=== PATIENT | female | born 1945 ===

== ENCOUNTER → 2020-04-09 09:47 | Outpatient (BNVA) | payer OTHER, SELFPAY | PROVIDERS: PCP Internal Medicine; Referring Provider Internal Medicine; Visit Provider Internal Medicine Endocrinology, Diabetes & Metabolism | DX: E11.65 Type 2 diabetes mellitus with hyperglycemia (principal); E11.42 Type 2 diabetes mellitus with diabetic polyneuropathy; E11.21 Type 2 diabetes mellitus with diabetic nephropathy; Z79.4 Long term (current) use of insulin; E78.5 Hyperlipidemia, unspecified; I10 Essential (primary) hypertension; E66.9 Obesity, unspecified; Z68.36 Body mass index [BMI] 36.0-36.9, adult; E03.9 Hypothyroidism, unspecified; Z79.899 Other long term (current) drug therapy | CPT/HCPCS: 82947; 99212 ==

== ENCOUNTER 2020-04-09 11:02 | Outpatient (REF) | payer OTHER, SELFPAY ==
[2020-04-09 14:29] LABS: Free T4 (Free Thyroxine) 0.96 ng/dL (0.71-1.85); Thyroid Stimulating Hormone 3.25 uIU/mL (0.32-4.0)
[2020-04-10 10:31] LABS: Thyroglobulin Antibodies <1 IU/mL (< or = 1); Thyroid Peroxidase Antibodies 1 IU/mL (<9)
== END 2020-04-09 11:03 | disposition home or self-care (01) ==
LOC: HO.10HDL 11:02
PROVIDERS: Visit Provider Internal Medicine Endocrinology, Diabetes & Metabolism
DX: E03.9 Hypothyroidism, unspecified (principal)
CPT/HCPCS: 36415; 84439; 84443; 86376; 86800

== ENCOUNTER 2020-05-19 13:16 | Emergency (ER) | payer OTHER, SELFPAY ==
[2020-05-19 18:20] VITALS: BP 173/75; PULSE 61; RESP 20; TEMP 36.9; O2SAT 100; BMI 33.6
[2020-05-19 18:47] LABS: Basophils Percent Auto 0.4 % (0-2); Eosinophils Absolute Auto 0.2 X10*3/uL (0.0-0.4); Hematocrit 33.7 % (37-47); Hemoglobin 11.3 g/dl (12.0-16.0); Imm Gran Abs Auto 0.01 X10*3/uL (0.00-0.03); Imm Gran Pct Auto 0.1 % (0.0-0.4); Lymphocytes Absolute Auto 2.7 X10*3/uL (1.2-4.9); Lymphocytes Percent Auto 36.9 % (20-40); MANUAL DIFF FLAG NO; Mean Corpuscular HGB Conc 33.5 g/dl (31.0-35.0); Mean Corpuscular Hemoglobin 27.9 pg (27.0-33.0); Mean Corpuscular Volume 83.2 fL (80-98); Mean Platelet Volume 10.7 fL (9.4-12.3); Monocytes Absolute Auto 0.6 X10*3/uL (0.1-1.2); Monocytes Percent Auto 8.2 % (2-11); Neutrophils Absolute Auto 3.8 X10*3/uL (2.0-8.3); Neutrophils Percent Auto 52.4 % (45-73); Platelet Count 208 X10*3/uL (160-400); Red Blood Count 4.05 X10*6/uL (4.20-5.50); Red Cell Distribution Width 12.9 % (11.0-16.0); White Blood Count 7.3 X10*3/uL (4.8-10.8)
[2020-05-19 19:13] LABS: Alanine Aminotransferase 26 U/L (0-31); Albumin Level 3.4 g/dL (3.5-5.0); Alkaline Phosphatase 76 U/L (39-117); Anion Gap 14 (12-20); Aspartate Amino Transferase 19 U/L (5-31); Bilirubin Total 0.3 mg/dL (0.0-1.0); Blood Urea Nitrogen 26 mg/dL (9-16); Calcium 8.8 mg/dL (8.4-10.2); Carbon Dioxide 24 mmol/L (22-29); Chloride 105 mmol/L (96-108); Creatinine Clr Calc Pharmacy 34.4; Estimated Glomerular Filt Rate 34; Glucose Random 388 mg/dL (60-115); Potassium 4.7 mmol/l (3.3-5.1); Sodium 138 mmol/L (135-145); Total Protein 6.2 g/dL (6.5-8.0)
[2020-05-19 19:22] LABS: Glucose Urine UA >=1000 MG/DL (NEG); Leukocyte Esterase Urine NEG (NEG); Nitrite Urine NEG (NEG); Specific Gravity - Urine <= 1.005 (1.005-1.025); Urine Blood NEG (NEG); Urine Ketones NEG (NEG); Urine Protein NEG (NEG-TRACE)
[2020-05-19 19:24] LABS: Appearance Urine CLEAR; Color Urine STRAW
[2020-05-19 19:32] LABS: Bacteria Urine 1+ /LPF; RBC Urine 0 /HPF (0); Squamous Epithelial Cell Urine 1+ /LPF; WBC Urine 0 /HPF (0-4)
--- NOTE | 2020-05-19 19:46 | PC.NURSE ---
please call for ride [place] [phone]
--- NOTE | 2020-05-19 19:51 | ED.RECABL ---
HPI - Recheck/Abnormal Lab/Rx General Chief Complaint: Recheck/Abnormal Lab/Rx Stated Complaint: high sugar,told to return here Time Seen by Provider: 05/19/20 19:15 Source: patient Mode of arrival: ambulatory Limitations: no limitations History of Present Illness HPI narrative: Patient presents to ED for hyperglycemia. Patient states for the past 2 days her glucose has been over 400. Patient denies any dizziness, chest pain, shortness of breath, dysuria, hematuria, fever, chills, coughing, or weakness. Patient states she takes metformin, Humalog, and other insulin. Patient states she was on insulin pump last year but they removed it and she would like to get back on the insulin pump. Patient states slight headache but no blurry vision, dizziness, slurred speech, or weakness of extremities. Related Data Home Medications Medication Instructions Recorded Confirmed acetaminophen 500 mg tablet mg PO PRN 04/09/20 05/01/20 ascorbic acid (vitamin C) 500 mg 500 mg PO DAILY 04/09/20 05/01/20 tablet blood sugar diagnostic #10 ea 04/09/20 05/01/20 citalopram 20 mg tablet 20 mg PO DAILY 04/09/20 05/01/20 ferrous sulfate 325 mg (65 mg 325 mg PO DAILY 04/09/20 05/01/20 iron) tablet lancets 33 gauge #100 ea 04/09/20 05/01/20 metformin 750 mg tablet,extended 750 mg PO BID 04/09/20 05/01/20 release 24 hr metoprolol succinate 50 mg 50 mg PO DAILY 04/09/20 05/01/20 tablet,extended release 24 hr omeprazole 40 mg capsule,delayed 40 mg PO DAILY 04/09/20 05/01/20 release pen needle, diabetic 32 gauge x #50 ea 04/09/20 05/01/20 quetiapine 50 mg tablet 50 mg PO QAM 04/09/20 05/01/20 risperidone 1 mg tablet 1 mg PO QAM 04/09/20 05/01/20 valsartan 320 mg tablet 320 mg PO DAILY 04/09/20 05/01/20 insulin lispro 100 unit/mL 26 unit SUBCUT BID ml 05/01/20 05/01/20 subcutaneous pen Previous Rx's Medication Instructions Recorded sennosides 8.6 mg tablet 17.2 mg PO BID PRN 30 Days #120 tab 10/13/20 tamoxifen 20 mg tablet 20 mg PO DAILY #30 tab 03/04/20 cholecalciferol (vitamin D3) 25 25 mcg PO DAILY 30 Days #30 cap 03/19/20 mcg (1,000 unit) capsule linagliptin 5 mg tablet 5 mg PO DAILY 90 Days #90 tab 03/19/20 dicyclomine 20 mg tablet 20 mg PO QID #120 tab 04/06/20 amlodipine 10 mg tablet 10 mg PO DAILY #90 tab 04/10/20 magnesium oxide 250 mg PO BID #180 tab 04/25/20 insulin glargine U-300 conc 300 45 unit SUBCUT DAILY 30 Days #4.5 05/02/20 unit/mL (1.5 mL) subcutaneous pen ml aspirin 81 mg tablet,delayed 81 mg PO DAILY #30 tab 05/06/20 release apixaban 5 mg tablet 5 mg PO BID #60 tab 05/13/20 atorvastatin 40 mg tablet 40 mg PO DAILY #90 tab 05/13/20 flash glucose sensor 1 ea TOPICAL Q2W #2 ea 05/19/20 Allergies Allergy/AdvReac Type Severity Reaction Status Date / Time JERMAINE Inhibitors AdvReac Intermediate COUGH Verified 05/01/20 16:30 [JERMAINE INHIBITORS] lactose [LACTOSE] AdvReac Intermediate GI Verified 05/01/20 16:30 DISCOMFORT Review of Systems Review of Systems: Yes all other systems are reviewed and are negative Constitutional: Constitutional: Reports as per HPI, Reports no additional constitutional complaints and Reports headache(s) Eyes: Eyes: Reports as per HPI and Reports no additional eye complaints ENT: Reports system reviewed and no additional complaints, except as documented, Reports as per HPI and Reports headache(s) Cardiovascular: Cardiovascular: Reports as per HPI and Reports no additional cardiovascular complaints Respiratory: Respiratory: Reports as per HPI and Reports no additional respiratory complaints Gastrointestinal: Gastrointestinal: Reports as per HPI and Reports no additional gastrointestinal complaints Musculoskeletal: Musculoskeletal: Reports no additional musculoskeletal complaints and Reports as per HPI Neurologic: Reports system reviewed and no additional complaints, except as documented, Reports as per HPI and Reports headache(s) Psychiatric: Psychiatric: Reports no additional psychiatric complaints and Reports as per HPI PMFSH Past Medical History Medical History Alzheimer disease Depression Diabetes Diabetes type 2, uncontrolled Diabetic nephropathy associated with type 2 diabetes mellitus Diabetic polyneuropathy associated with type 2 diabetes mellitus Dyslipidemia GERD (gastroesophageal reflux disease) History of endometrial cancer History of left breast cancer Hypertension Hypothyroidism Iron deficiency anemia 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 Mother Diabetes mellitus Heart disease Social History Social History Smoking Status: Never smoker Advance Directives: No Advance Directives Information Provided: No Physical Exam Vital Signs: Vital Signs: Last Vital Signs Temp 98.5 F 05/19/20 20:00 Pulse 77 05/19/20 22:45 Resp 18 05/19/20 22:45 BP 174/56 H 05/19/20 22:45 Pulse Ox 95 05/19/20 22:45 Body Mass Index 33.6 Const: General: cooperative, healthy appearing, comfortable, no acute distress, well developed, alert, awake and Physically active Orientation/consciousness: patient oriented x3 HENMT: Head: Yes normal to inspection and Yes No palpable skull fracture present Eyes: Other: Negative for nystagmus or photophobia General: appearance normal, both eyes and all related structures Neck: Neck: Yes normal visual inspection, Yes full ROM, Yes no lymphadenopathy, Yes no meningeal signs, Yes trachea midline, Yes supple and No tender Chest: Chest palpation & inspection: normal inspection of the chest and normal palpation of entire chest wall Resp: Effort & Inspection: normal respiratory effort and able to speak in complete sentences Auscultation: clear to auscultation bilaterally Cardio: Jugular venous distension: no JVD Heart sounds: S1 normal heart sound present and S2 normal heart sound present GI: Inspection: Yes normal to inspection and No abdominal wall ecchymosis Palpation (GI): Soft to palpation, not firm, nontender, no guarding and not rigid : General: No CVA tenderness and Yes no CVA tenderness Back/Spine/Pelvis: Back: no CVA tenderness, No CVA tenderness and No back tenderness Skin: General skin exam: no rashes or lesions noted Neuro: General: patient oriented x3, gait normal, no meningeal signs and CN's II-XI intact bilaterally Cranial nerves: Yes CN's II-XII intact bilaterally Extrem: General: Yes normal to inspection and Yes full ROM Psych: Appearance: grossly normal, well kempt and not disheveled Course Course Course Narrative: Patient presently asymptomatic. Labs were drawn in the waiting room. Waiting for lab results. Patient presently refused IV fluids. Reevaluation(s) Reevaluation #1: Patient urine negative for ketones or UTI. Anion gap is normal. Bicarb is normal. Not suspecting DKA. Patient has mild CASS. Will give IV fluids and repeat. Time: 20:07 Reevaluation #2: Patient repeat chemistry shows resolvement of CASS. Patient hyperglycemia improved. Patient informed to follow-up with PCP. Acetone negative. Urine negative for UTI or ketones. Patient is sleeping comfortably in bed. Headache resolved without any pain medication. Time: 00:26 MDM - Recheck/Abnormal Lab/Rx MDM Narrative Medical decision making narrative: Hyperglycemia Lab Data Result diagrams: 05/19/20 18:42 05/19/20 23:09 Labs: Lab Results 05/19/20 05/19/20 05/19/20 Range/Units 18:42 18:42 19:01 WBC 7.3 (4.8-10.8) X10*3/uL RBC 4.05 L (4.20-5.50) X10*6/uL Hgb 11.3 L (12.0-16.0) g/dl Hct 33.7 L (37-47) % MCV 83.2 (80-98) fL MCH 27.9 (27.0-33.0) pg MCHC 33.5 (31.0-35.0) g/dl RDW 12.9 (11.0-16.0) % Plt Count 208 (160-400) X10*3/uL MPV 10.7 (9.4-12.3) fL Immature Gran % (Auto) 0.1 (0.0-0.4) % Neut % (Auto) 52.4 (45-73) % Lymph % (Auto) 36.9 (20-40) % [place] % (Auto) 8.2 (2-11) % Eos % (Auto) 2.0 (0-4) % Baso % (Auto) 0.4 (0-2) % Lymph # (Auto) 2.7 (1.2-4.9) X10*3/uL [place] # (Auto) 0.6 (0.1-1.2) X10*3/uL Eos # (Auto) 0.2 (0.0-0.4) X10*3/uL Baso # (Auto) 0.0 (0.0-0.2) X10*3/uL Abs Immat Gran (auto) 0.01 (0.00-0.03) X10*3/uL Absolute Neuts (auto) 3.8 (2.0-8.3) X10*3/uL Absolute Nucleated RBC 0.000 (0.0-0.012) X10*3/uL Nucleated RBC % (auto) 0.0 (0.0-0.2) /100WBC Sodium 138 (135-145) mmol/L Potassium 4.7 (3.3-5.1) mmol/l Chloride 105 (96-108) mmol/L Carbon Dioxide 24 (22-29) mmol/L Anion Gap 14 (12-20) BUN 26 H (9-16) mg/dL Creatinine 1.49 H (0.5-1.4) mg/dL Estim Creat Clear Calc 34.4 Estimated GFR 34 POC Glucose (60-115) mg/dL Random Glucose 388 H* (60-115) mg/dL Calcium 8.8 (8.4-10.2) mg/dL Total Bilirubin 0.3 (0.0-1.0) mg/dL AST 19 (5-31) U/L ALT 26 (0-31) U/L Alkaline Phosphatase 76 (39-117) U/L Total Protein 6.2 L (6.5-8.0) g/dL Albumin 3.4 L (3.5-5.0) g/dL Urine Color STRAW Urine Appearance CLEAR Urine pH 6.0 (5.0-8.0) Ur Specific [place] <= 1.005 (1.005-1.025) Urine Protein NEG (NEG-TRACE) MG/DL Urine Glucose (UA) >=1000 H (NEG) MG/DL Urine Ketones NEG (NEG) MG/DL Urine Blood NEG (NEG) Urine Nitrite NEG (NEG) Ur Leukocyte Esterase NEG (NEG) Urine RBC 0 (0) /HPF Urine WBC 0 (0-4) /HPF Ur Squamous Epith Cells 1+ /LPF Urine Bacteria 1+ /LPF Acetone, Qual Negative (Negative) 05/19/20 05/19/20 05/20/20 Range/Units 22:53 23:09 00:35 WBC (4.8-10.8) X10*3/uL RBC (4.20-5.50) X10*6/uL Hgb (12.0-16.0) g/dl Hct (37-47) % MCV (80-98) fL MCH (27.0-33.0) pg MCHC (31.0-35.0) g/dl RDW (11.0-16.0) % Plt Count (160-400) X10*3/uL MPV (9.4-12.3) fL Immature Gran % (Auto) (0.0-0.4) % Neut % (Auto) (45-73) % Lymph % (Auto) (20-40) % [place] % (Auto) (2-11) % Eos % (Auto) (0-4) % Baso % (Auto) (0-2) % Lymph # (Auto) (1.2-4.9) X10*3/uL [place] # (Auto) (0.1-1.2) X10*3/uL Eos # (Auto) (0.0-0.4) X10*3/uL Baso # (Auto) (0.0-0.2) X10*3/uL Abs Immat Gran (auto) (0.00-0.03) X10*3/uL Absolute Neuts (auto) (2.0-8.3) X10*3/uL Absolute Nucleated RBC (0.0-0.012) X10*3/uL Nucleated RBC % (auto) (0.0-0.2) /100WBC Sodium 140 (135-145) mmol/L Potassium 4.4 (3.3-5.1) mmol/l Chloride 109 H (96-108) mmol/L Carbon Dioxide 22 (22-29) mmol/L Anion Gap 13 (12-20) BUN 25 H (9-16) mg/dL Creatinine 1.34 (0.5-1.4) mg/dL Estim Creat Clear Calc 38.3 Estimated GFR 39 POC Glucose 317 H 305 H (60-115) mg/dL Random Glucose 376 H* (60-115) mg/dL Calcium 8.2 L D (8.4-10.2) mg/dL Total Bilirubin 0.2 (0.0-1.0) mg/dL AST 16 (5-31) U/L ALT 24 (0-31) U/L Alkaline Phosphatase 73 (39-117) U/L Total Protein 5.9 L (6.5-8.0) g/dL Albumin 3.3 L (3.5-5.0) g/dL Urine Color Urine Appearance Urine pH (5.0-8.0) Ur Specific [place] (1.005-1.025) Urine Protein (NEG-TRACE) MG/DL Urine Glucose (UA) (NEG) MG/DL Urine Ketones (NEG) MG/DL Urine Blood (NEG) Urine Nitrite (NEG) Ur Leukocyte Esterase (NEG) Urine RBC (0) /HPF Urine WBC (0-4) /HPF Ur Squamous Epith Cells /LPF Urine Bacteria /LPF Acetone, Qual (Negative) Discharge Plan Discharge Clinical Impression: Hyperglycemia due to diabetes mellitus Patient Disposition: Home, Self-Care Instructions: Diabetic Hyperglycemia (ED) Additional Instructions: Return to the ED immediately for any dizziness, chest pain, shortness of breath, polydipsia, polyuria, weakness, or any other concerning symptoms. Prescriptions: No Action sennosides [Whit-chitra] 8.6 mg tablet 17.2 mg PO BID PRN (Reason: constipation) 30 Days Qty: 120 RF: 6 tamoxifen 20 mg tablet 20 mg PO DAILY Qty: 30 RF: 6 cholecalciferol (vitamin D3) 25 mcg (1,000 unit) capsule 25 mcg PO DAILY 30 Days Qty: 30 RF: 11 Tradjenta 5 mg tablet 5 mg PO DAILY 90 Days Qty: 90 RF: 3 dicyclomine 20 mg tablet 20 mg PO QID Qty: 120 RF: 3 amlodipine 10 mg tablet 10 mg PO DAILY Qty: 90 RF: 0 magnesium oxide 250 mg magnesium tablet 250 mg PO BID Qty: 180 RF: 1 aspirin 81 mg tablet,delayed release (DR/EC) 81 mg PO DAILY Qty: 30 RF: 11 apixaban [Eliquis] 5 mg tablet 5 mg PO BID Qty: 60 RF: 3 atorvastatin 40 mg tablet 40 mg PO DAILY Qty: 90 RF: 3 FreeStyle [place] 14 Day Sensor Kit 1 ea topical Q2W Qty: 2 RF: 11 insulin glargine U-300 conc 300 unit/mL (1.5 mL) insulin pen 45 unit subcut DAILY 30 Days Qty: 4.5 RF: 11 citalopram 20 mg tablet 20 mg PO DAILY RF: 0 (DME) pen needle, diabetic 32 gauge x 5/32 needle See Rx Instructions ea subcut .MEDSUPPLY Qty: 50 RF: 0 quetiapine 50 mg tablet 50 mg PO QAM RF: 0 risperidone 1 mg tablet 1 mg PO QAM RF: 0 ascorbic acid (vitamin C) 500 mg tablet 500 mg PO DAILY RF: 0 metoprolol succinate 50 mg tablet extended release 24 hr 50 mg PO DAILY RF: 0 acetaminophen 500 mg tablet PO PRNRF: 0 valsartan 320 mg tablet 320 mg PO DAILY RF: 0 (DME) lancets 33 gauge misc See Rx Instructions ea Not Applicable QID Qty: 100 RF: 0 ferrous sulfate 325 mg (65 mg iron) tablet 325 mg PO DAILY RF: 0 omeprazole 40 mg capsule,delayed release(DR/EC) 40 mg PO DAILY RF: 0 (DME) OneTouch Ultra Blue Test Strip Strip See Rx Instructions strip .ROUTE .MEDSUPPLY Qty: 10 RF: 0 metformin 750 mg tablet extended release 24 hr 750 mg PO BID RF: 0 insulin lispro 100 unit/mL insulin pen 26 unit subcut BID RF: 0 Referrals: Yesi Bardales MD [Primary Care Provider] - 2 days (Hyperglycemia. Patient not in DKA.) Interventions: ED Discharge Assessment Last Done: 05/20/20 01:38 Discharge Date/Time: 05/20/20 01:40 Print Language: Vietnamese
[2020-05-19 20:00] VITALS: BP 168/72; PULSE 66; RESP 18; TEMP 36.9; O2SAT 100
[2020-05-19 20:06] LABS: Acetone, serum QL Negative (Negative)
[2020-05-19] MEDS: 0.9 % Sodium Chloride 1,000 ML 999 ML IV ×2 (20:39→20:40)
[2020-05-19 22:45] VITALS: BP 174/56; PULSE 77; RESP 18; O2SAT 95
[2020-05-19 22:57] LABS: Glucose, Whole Blood 317 mg/dL (60-115)
[2020-05-19 23:52] LABS: Alanine Aminotransferase 24 U/L (0-31); Albumin Level 3.3 g/dL (3.5-5.0); Alkaline Phosphatase 73 U/L (39-117); Anion Gap 13 (12-20); Aspartate Amino Transferase 16 U/L (5-31); Bilirubin Total 0.2 mg/dL (0.0-1.0); Blood Urea Nitrogen 25 mg/dL (9-16); Calcium 8.2 mg/dL (8.4-10.2); Carbon Dioxide 22 mmol/L (22-29); Chloride 109 mmol/L (96-108); Creatinine Clr Calc Pharmacy 38.3; Estimated Glomerular Filt Rate 39; Glucose Random 376 mg/dL (60-115); Potassium 4.4 mmol/l (3.3-5.1); Sodium 140 mmol/L (135-145); Total Protein 5.9 g/dL (6.5-8.0)
[2020-05-20] MEDS: Insulin Regular, Human 100 UNIT/ML 3 ML VIAL 6 UNIT IVPUSH
[2020-05-20 00:38] LABS: Glucose, Whole Blood 305 mg/dL (60-115)
--- NOTE | 2020-05-20 01:15 | PC.NURSE ---
PT OFFERED WATER OR JOI LUIS, DECLINED. PT AMBULATORY WITH STEADY GAIT TO BATHROOM. CALLING DAUGHTER FOR RIDE.
[2020-05-20 08:14] LABS: Glucose, Whole Blood 283 mg/dL (60-115)
[2020-05-20 08:14] LABS: Glucose, Whole Blood 350 mg/dL (60-115)
== END 2020-05-20 01:40 | disposition home or self-care (01) ==
PROVIDERS: Physician Assistant; Emergency Provider Emergency Medicine; PCP Internal Medicine
DX: E11.65 Type 2 diabetes mellitus with hyperglycemia (principal); R79.89 Other specified abnormal findings of blood chemistry; R51.9 Headache, unspecified; Z79.4 Long term (current) use of insulin; Z79.899 Other long term (current) drug therapy
CPT/HCPCS: 36415; 80053; 81001; 82009; 82947; 85025; 96361; 96374; 99284

== ENCOUNTER → 2020-06-17 09:07 | Outpatient (BNVA) | payer OTHER, SELFPAY | PROVIDERS: PCP Internal Medicine; Visit Provider Internal Medicine Endocrinology, Diabetes & Metabolism | DX: E11.65 Type 2 diabetes mellitus with hyperglycemia (principal); E11.42 Type 2 diabetes mellitus with diabetic polyneuropathy; E11.21 Type 2 diabetes mellitus with diabetic nephropathy; E78.5 Hyperlipidemia, unspecified; I10 Essential (primary) hypertension; Z79.4 Long term (current) use of insulin; E66.9 Obesity, unspecified; E03.9 Hypothyroidism, unspecified | CPT/HCPCS: 82947; 99212 ==

== ENCOUNTER → 2020-06-18 09:25 | Outpatient (BNVA) | payer OTHER, SELFPAY | PROVIDERS: PCP Internal Medicine; Visit Provider Nurse Practitioner | DX: Z76.89 Persons encountering health services in other specified circumstances (principal) | CPT/HCPCS: Q3014 ==

== ENCOUNTER → 2020-08-21 09:05 | Outpatient (BNVA) | payer OTHER, SELFPAY | PROVIDERS: PCP Internal Medicine; Visit Provider Internal Medicine Endocrinology, Diabetes & Metabolism | DX: Z13.89 Encounter for screening for other disorder (principal) | CPT/HCPCS: Q3014 ==

== ENCOUNTER 2020-09-03 08:52 | Outpatient (REF) | payer MEDICARE, SELFPAY ==
[2020-09-03 11:06] LABS: Creatinine Urine 101.03 mg/dL; Microalbum/Creatinine Ratio Ur 71.2 ug/mg cr
[2020-09-03 11:08] LABS: Estimated Average Glucose 209 mg/dL; Hemoglobin A1c % 8.9 %
[2020-09-03 11:34] LABS: Alanine Aminotransferase 15 U/L (0-31); Albumin Level 3.6 g/dL (3.5-5.0); Alkaline Phosphatase 83 U/L (39-117); Anion Gap 12 (12-20); Aspartate Amino Transferase 11 U/L (5-31); Bilirubin Total 0.4 mg/dL (0.0-1.0); Blood Urea Nitrogen 27 mg/dL (9-16); Calcium 9.7 mg/dL (8.4-10.2); Carbon Dioxide 24 mmol/L (22-29); Chloride 105 mmol/L (96-108); Cholesterol 119 mg/dL; Estimated Glomerular Filt Rate 41; Free T4 (Free Thyroxine) 0.81 ng/dL (0.71-1.85); Glucose Fasting 311 mg/dL (60-99); HDL Cholesterol 33 mg/dL; LDL Cholesterol Calculated 58 mg/dl; Potassium 5.1 mmol/L (3.3-5.1); Sodium 136 mmol/L (135-145); Thyroid Stimulating Hormone 4.69 uIU/mL (0.32-4.0); Total Protein 6.7 g/dL (6.5-8.0); Triglycerides 144 mg/dL
[2020-09-03 11:51] LABS: Vitamin B12 551 pg/mL (200-900)
[2020-09-04 03:11] LABS: LDL Cholesterol Direct 62 mg/dL (<100)
== END 2020-09-03 08:53 | disposition home or self-care (01) ==
LOC: HO.LAB 08:52
PROVIDERS: Absent Provider Internal Medicine Endocrinology, Diabetes & Metabolism; PCP Internal Medicine; Visit Provider Internal Medicine
DX: E11.65 Type 2 diabetes mellitus with hyperglycemia (principal)
CPT/HCPCS: 36415; 80053; 80061; 82043; 82607; 83036; 83721; 84439; 84443

== ENCOUNTER 2020-10-13 13:49 | Outpatient (REF) | payer MEDICARE, SELFPAY ==
--- NOTE | ~2020-10-13 | US_ITS ---
EXAMINATION: US VENOUS ULTRASOUND WITH DOPPLER LOWER EXTREMITY, BILATERAL CLINICAL INFORMATION: Pain COMPARISON: None TECHNIQUE: Ultrasound of the deep veins is performed from the hip to the calf with compression sonography and color and pulse Doppler assessment. Spectral analysis with color-flow imaging is performed. FINDINGS: RIGHT: There is normal venous compression and respiratory variation and augmented flow. The visualized common femoral vein, superficial femoral vein, profunda femoral vein, popliteal vein, and the trifurcation region shows no evidence of deep venous thrombosis. There is no significant popliteal fossa cyst. LEFT: There is normal venous compression and respiratory variation and augmented flow. The visualized common femoral vein, superficial femoral vein, profunda femoral vein, popliteal vein, and the trifurcation region shows no evidence of deep venous thrombosis. There is no significant popliteal fossa cyst. US/US venous duplex LE BI IMPRESSION: No DVT demonstrated in the bilateral lower extremity.
[2020-10-13 14:36] LABS: MANUAL DIFF FLAG NO
[2020-10-13 14:47] LABS: Basophils Percent Auto 0.3 % (0-2); Eosinophils Absolute Auto 0.2 X10*3/uL (0.0-0.4); Eosinophils Percent Auto 2.1 % (0-4); Hematocrit 31.5 % (37-47); Hemoglobin 10.5 g/dl (12.0-16.0); Imm Gran Abs Auto 0.05 X10*3/uL (0.00-0.03); Imm Gran Pct Auto 0.5 % (0.0-0.4); Lymphocytes Absolute Auto 2.8 X10*3/uL (1.2-4.9); Mean Corpuscular HGB Conc 33.3 g/dl (31.0-35.0); Mean Corpuscular Hemoglobin 27.6 pg (27.0-33.0); Mean Corpuscular Volume 82.7 fL (80-98); Mean Platelet Volume 10.6 fL (9.4-12.3); Monocytes Absolute Auto 0.7 X10*3/uL (0.1-1.2); Monocytes Percent Auto 6.1 % (2-11); Platelet Count 253 X10*3/uL (160-400); Red Blood Count 3.81 X10*6/uL (4.20-5.50); Red Cell Distribution Width 12.6 % (11.0-16.0); White Blood Count 10.7 X10*3/uL (4.8-10.8)
[2020-10-13 14:53] LABS: Creatinine Urine 18.09 mg/dL; Microalbum/Creatinine Ratio Ur 154.7 ug/mg cr
[2020-10-13 14:57] LABS: Alanine Aminotransferase 15 U/L (0-31); Albumin Level 3.5 g/dL (3.5-5.0); Alkaline Phosphatase 82 U/L (39-117); Anion Gap 13 (12-20); Aspartate Amino Transferase 12 U/L (5-31); Bilirubin Total 0.4 mg/dL (0.0-1.0); Blood Urea Nitrogen 26 mg/dL (9-16); Calcium 9.5 mg/dL (8.4-10.2); Carbon Dioxide 24 mmol/L (22-29); Chloride 103 mmol/L (96-108); Cholesterol 111 mg/dL; Estimated Glomerular Filt Rate 44; Glucose Fasting 181 mg/dL (60-99); HDL Cholesterol 30 mg/dL; Iron 31 mcg/dL (30-160); LDL Cholesterol Calculated 53 mg/dl; Percent Iron Saturation 11 % (15-50); Potassium 4.1 mmol/L (3.3-5.1); Sodium 136 mmol/L (135-145); Total Iron Binding Capacity 283 mcg/dL (228-428); Total Protein 6.5 g/dL (6.5-8.0); Triglycerides 140 mg/dL; Unsaturated Iron Binding 252 ug/dL
[2020-10-17 14:02] LABS: Vitamin D 25-OH, D2 <4 ng/mL; Vitamin D 25-OH, D3 39 ng/mL; Vitamin D 25-OH, Total 39 ng/mL (30-100)
== END 2020-10-13 13:50 | disposition home or self-care (01) ==
LOC: HO.US 13:49
PROVIDERS: PCP Internal Medicine; Visit Provider Internal Medicine
DX: M79.604 Pain in right leg (principal); M79.605 Pain in left leg; E55.9 Vitamin D deficiency, unspecified; E03.9 Hypothyroidism, unspecified; E11.9 Type 2 diabetes mellitus without complications; E78.5 Hyperlipidemia, unspecified; D64.9 Anemia, unspecified; D50.9 Iron deficiency anemia, unspecified; Z79.4 Long term (current) use of insulin
CPT/HCPCS: 36415; 80053; 80061; 82043; 82306; 83540; 84443; 85025; 93970

== ENCOUNTER → 2020-10-16 08:57 | Outpatient (BNVA) | payer MEDICARE, SELFPAY | PROVIDERS: PCP Internal Medicine; Referring Provider Internal Medicine; Visit Provider Internal Medicine Cardiovascular Disease | DX: I48.0 Paroxysmal atrial fibrillation (principal); I10 Essential (primary) hypertension | CPT/HCPCS: 93005; 99212 ==

== ENCOUNTER → 2020-11-17 10:44 | Outpatient (BNVA) | payer MEDICARE, SELFPAY | PROVIDERS: PCP Internal Medicine; Visit Provider Internal Medicine Endocrinology, Diabetes & Metabolism | DX: E11.65 Type 2 diabetes mellitus with hyperglycemia (principal); E11.42 Type 2 diabetes mellitus with diabetic polyneuropathy; E11.21 Type 2 diabetes mellitus with diabetic nephropathy; E78.5 Hyperlipidemia, unspecified; I10 Essential (primary) hypertension; E66.9 Obesity, unspecified; Z79.4 Long term (current) use of insulin | CPT/HCPCS: 82947; 99212 ==

== ENCOUNTER → 2021-02-27 10:55 | Outpatient (BNVA) | payer OTHER, SELFPAY | PROVIDERS: PCP Internal Medicine; Visit Provider Nurse Practitioner Gerontology | DX: E11.65 Type 2 diabetes mellitus with hyperglycemia (principal); E11.42 Type 2 diabetes mellitus with diabetic polyneuropathy; E11.21 Type 2 diabetes mellitus with diabetic nephropathy; E78.5 Hyperlipidemia, unspecified; E66.9 Obesity, unspecified; I10 Essential (primary) hypertension; Z79.4 Long term (current) use of insulin | CPT/HCPCS: 82947; 99212 ==

== ENCOUNTER 2021-03-09 08:33 | Outpatient (REF) | payer OTHER, SELFPAY ==
[2021-03-09 09:07] LABS: Hematocrit 35.4 % (37-47); Mean Corpuscular HGB Conc 33.9 g/dl (31.0-35.0); Mean Corpuscular Hemoglobin 27.3 pg (27.0-33.0); Mean Corpuscular Volume 80.5 fL (80-98); Mean Platelet Volume 10.2 fL (9.4-12.3); Platelet Count 287 X10*3/uL (160-400); White Blood Count 9.3 X10*3/uL (4.8-10.8)
[2021-03-09 09:31] LABS: Alanine Aminotransferase 28 U/L (0-31); Albumin Level 3.8 g/dL (3.5-5.0); Alkaline Phosphatase 85 U/L (39-117); Anion Gap 16 (12-20); Aspartate Amino Transferase 19 U/L (5-31); Bilirubin Total 0.3 mg/dL (0.0-1.0); Blood Urea Nitrogen 22 mg/dL (9-16); Calcium 10.6 mg/dL (8.4-10.2); Carbon Dioxide 25 mmol/L (22-29); Chloride 103 mmol/L (96-108); Cholesterol 107 mg/dL; Estimated Glomerular Filt Rate 39; Glucose Fasting 272 mg/dL (60-99); HDL Cholesterol 24 mg/dL; Iron 54 mcg/dL (30-160); LDL Cholesterol Calculated 43 mg/dl; Percent Iron Saturation 18 % (15-50); Potassium 4.9 mmol/L (3.3-5.1); Sodium 139 mmol/L (135-145); Total Iron Binding Capacity 302 mcg/dL (228-428); Total Protein 7.1 g/dL (6.5-8.0); Triglycerides 202 mg/dL; Unsaturated Iron Binding 248 ug/dL
[2021-03-09 10:24] LABS: Free T4 (Free Thyroxine) 0.97 ng/dL (0.71-1.85)
[2021-03-09 11:30] LABS: Creatinine Urine 134.66 mg/dL; Microalbum/Creatinine Ratio Ur 236.8 ug/mg cr
== END 2021-03-09 08:34 | disposition home or self-care (01) ==
LOC: HO.LAB 08:33
PROVIDERS: Absent Provider Nurse Practitioner Gerontology; PCP Internal Medicine; Visit Provider Internal Medicine
DX: E78.5 Hyperlipidemia, unspecified (principal); E11.21 Type 2 diabetes mellitus with diabetic nephropathy; D50.9 Iron deficiency anemia, unspecified; E03.9 Hypothyroidism, unspecified
CPT/HCPCS: 36415; 80053; 80061; 82043; 83540; 84439; 84443; 85027

== ENCOUNTER 2021-04-24 11:50 | Outpatient (REF) | payer OTHER, SELFPAY ==
--- NOTE | ~2021-04-24 | MM_ITS ---
EXAMINATION: MM SCREENING DIGITAL BREAST TOMOSYNTHESIS, BILATERAL CLINICAL INFORMATION: Screening. Asymptomatic. 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 COMPARISON: Mammography: 12/11/2019, 11/10/2018, 11/25/2017, 11/16/2016, 10/25/2016 TECHNIQUE: Digital breast tomosynthesis is performed in both the craniocaudal and mediolateral oblique views along with computer-aided detection (CAD). Synthesized 2D images are generated from the tomosynthesis. FINDINGS: There are scattered areas of fibroglandular density (ACR BI-RADS breast composition Category b). Post therapy changes left breast are similar to prior study. There are left axillary clips again noted. Scattered bilateral vascular calcifications are again seen. There is no interval developing density or interval mass or architectural abnormality in either breast. No significant changes. MM/MM tomosynthesis screening BI IMPRESSION: No mammographic evidence of malignancy. Post therapy changes left breast. ASSESSMENT: BI-RADS 2: Benign RECOMMENDATION: Routine annual mammography screening. This patient's information was entered into a reminder system with a target due date for their next mammogram.
== END 2021-04-24 11:51 | disposition home or self-care (01) ==
LOC: HO.MAMMO 11:50
PROVIDERS: Visit Provider Internal Medicine
DX: Z12.31 Encounter for screening mammogram for malignant neoplasm of breast (principal)
CPT/HCPCS: 77063; 77067

== ENCOUNTER 2021-06-23 09:30 | Outpatient (REF) | payer OTHER, SELFPAY ==
[2021-06-23 09:50] LABS: MANUAL DIFF FLAG NO
[2021-06-23 10:21] LABS: Basophils Percent Auto 0.3 % (0-2); Eosinophils Absolute Auto 0.1 X10*3/uL (0.0-0.4); Eosinophils Percent Auto 1.4 % (0-4); Hematocrit 38.8 % (37.0-47.0); Hemoglobin 12.4 g/dl (12.0-16.0); Imm Gran Abs Auto 0.03 X10*3/uL (0.00-0.03); Imm Gran Pct Auto 0.3 % (0.0-0.4); Lymphocytes Percent Auto 21.6 % (20-40); Mean Corpuscular Hemoglobin 26.7 pg (27.0-33.0); Mean Corpuscular Volume 83.6 fL (80.0-98.0); Mean Platelet Volume 10.9 fL (9.4-12.3); Monocytes Absolute Auto 0.6 X10*3/uL (0.1-1.2); Monocytes Percent Auto 6.1 % (2-11); Neutrophils Absolute Auto 6.5 x10*3/uL (2.0-8.3); Neutrophils Percent Auto 70.3 % (45-73); Platelet Count 252 X10*3/uL (160-400); Red Blood Count 4.64 X10*6/uL (4.20-5.50); Red Cell Distribution Width 13.1 % (11.0-16.0); White Blood Count 9.3 X10*3/uL (4.8-10.8)
[2021-06-23 11:14] LABS: Alanine Aminotransferase 29 U/L (0-31); Albumin Level 3.7 g/dL (3.5-5.0); Alkaline Phosphatase 78 U/L (39-117); Anion Gap 14 (12-20); Aspartate Amino Transferase 28 U/L (5-31); Bilirubin Total 0.5 mg/dL (0.0-1.0); Blood Urea Nitrogen 18 mg/dL (9-16); Calcium 10.1 mg/dL (8.4-10.2); Carbon Dioxide 27 mmol/L (22-29); Chloride 103 mmol/L (96-108); Cholesterol 120 mg/dL; Estimated Glomerular Filt Rate 35; Glucose Fasting 341 mg/dL (60-99); HDL Cholesterol 25 mg/dL; Iron 82 mcg/dL (30-160); LDL Cholesterol Calculated 61 mg/dl; Percent Iron Saturation 29 % (15-50); Potassium 5.3 mmol/L (3.3-5.1); Sodium 139 mmol/L (135-145); Total Iron Binding Capacity 287 mcg/dL (228-428); Total Protein 7.1 g/dL (6.5-8.0); Triglycerides 173 mg/dL; Unsaturated Iron Binding 205 ug/dL
[2021-06-23 11:20] LABS: Creatinine Urine 240.22 mg/dL
[2021-06-23 11:32] LABS: Microalbum/Creatinine Ratio Ur 276.8 ug/mg cr
[2021-06-23 11:35] LABS: Free T4 (Free Thyroxine) 1.22 ng/dL (0.71-1.85)
[2021-06-23 11:54] LABS: Thyroid Stimulating Hormone 3.65 uIU/mL (0.32-4.0); Vitamin D 25-OH Total 50.5 ng/mL (>30)
[2021-06-24 07:57] LABS: LDL Cholesterol Direct 63 mg/dL (<100)
[2021-06-24 08:16] LABS: Thyroglobulin Antibodies <1 IU/mL (< or = 1); Thyroid Peroxidase Antibodies 1 IU/mL (<9)
== END 2021-06-23 09:31 | disposition home or self-care (01) ==
LOC: HO.LAB 09:30
PROVIDERS: Nurse Practitioner Gerontology; PCP Internal Medicine; Visit Provider Internal Medicine
DX: E11.65 Type 2 diabetes mellitus with hyperglycemia (principal); E55.9 Vitamin D deficiency, unspecified; E03.9 Hypothyroidism, unspecified; D64.9 Anemia, unspecified
CPT/HCPCS: 36415; 80053; 80061; 82043; 82306; 83540; 83721; 84439; 84443; 85025; 86376; 86800

== ENCOUNTER 2021-07-08 09:38 | Outpatient (REF) | payer OTHER, SELFPAY ==
[2021-07-08 11:03] LABS: Alanine Aminotransferase 20 U/L (0-31); Albumin Level 3.5 g/dL (3.5-5.0); Alkaline Phosphatase 77 U/L (39-117); Anion Gap 14 (12-20); Aspartate Amino Transferase 19 U/L (5-31); Bilirubin Total 0.3 mg/dL (0.0-1.0); Blood Urea Nitrogen 14 mg/dL (9-16); Calcium 9.5 mg/dL (8.4-10.2); Carbon Dioxide 23 mmol/L (22-29); Chloride 104 mmol/L (96-108); Cholesterol 110 mg/dL; Estimated Glomerular Filt Rate 49; Glucose Fasting 365 mg/dL (60-99); HDL Cholesterol 25 mg/dL; LDL Cholesterol Calculated 56 mg/dl; Potassium 4.7 mmol/L (3.3-5.1); Sodium 136 mmol/L (135-145); Total Protein 6.6 g/dL (6.5-8.0); Triglycerides 149 mg/dL
[2021-07-08 11:05] LABS: Creatinine Urine 89.97 mg/dL; Microalbum/Creatinine Ratio Ur 321.2 ug/mg cr
[2021-07-13 15:03] LABS: Vitamin D 25-OH, D2 <4 ng/mL; Vitamin D 25-OH, D3 39 ng/mL; Vitamin D 25-OH, Total 39 ng/mL (30-100)
== END 2021-07-08 09:39 | disposition home or self-care (01) ==
LOC: HO.LAB 09:38
PROVIDERS: PCP Internal Medicine; Visit Provider Nurse Practitioner Gerontology
DX: E55.9 Vitamin D deficiency, unspecified (principal); E11.29 Type 2 diabetes mellitus with other diabetic kidney complication; R80.9 Proteinuria, unspecified; E78.5 Hyperlipidemia, unspecified
CPT/HCPCS: 36415; 80048; 80053; 80061; 82043; 82306

== ENCOUNTER 2021-08-13 09:20 | Outpatient (REF) | payer OTHER, SELFPAY ==
[2021-08-13 09:50] LABS: MANUAL DIFF FLAG NO
[2021-08-13 10:03] LABS: Basophils Percent Auto 0.2 % (0-2); Eosinophils Absolute Auto 0.2 X10*3/uL (0.0-0.4); Eosinophils Percent Auto 1.6 % (0-4); Hematocrit 34.4 % (37.0-47.0); Hemoglobin 11.2 g/dl (12.0-16.0); Imm Gran Abs Auto 0.04 X10*3/uL (0.00-0.03); Imm Gran Pct Auto 0.4 % (0.0-0.4); Lymphocytes Absolute Auto 1.8 X10*3/uL (1.2-4.9); Lymphocytes Percent Auto 19.4 % (20-40); Mean Corpuscular HGB Conc 32.6 g/dl (31.0-35.0); Mean Corpuscular Hemoglobin 27.3 pg (27.0-33.0); Mean Corpuscular Volume 83.9 fL (80.0-98.0); Mean Platelet Volume 10.6 fL (9.4-12.3); Monocytes Absolute Auto 0.5 X10*3/uL (0.1-1.2); Monocytes Percent Auto 5.8 % (2-11); Neutrophils Absolute Auto 6.7 x10*3/uL (2.0-8.3); Neutrophils Percent Auto 72.6 % (45-73); Platelet Count 269 X10*3/uL (160-400); Red Cell Distribution Width 13.7 % (11.0-16.0); White Blood Count 9.3 X10*3/uL (4.8-10.8)
[2021-08-13 10:47] LABS: Alanine Aminotransferase 19 U/L (0-31); Albumin Level 3.5 g/dL (3.5-5.0); Alkaline Phosphatase 80 U/L (39-117); Anion Gap 16 (12-20); Aspartate Amino Transferase 17 U/L (5-31); Bilirubin Total 0.4 mg/dL (0.0-1.0); Blood Urea Nitrogen 17 mg/dL (9-16); Calcium 9.3 mg/dL (8.4-10.2); Carbon Dioxide 23 mmol/L (22-29); Chloride 106 mmol/L (96-108); Cholesterol 117 mg/dL; Estimated Glomerular Filt Rate 44; Glucose Fasting 277 mg/dL (60-99); HDL Cholesterol 28 mg/dL; Iron 61 mcg/dL (30-160); LDL Cholesterol Calculated 66 mg/dl; Percent Iron Saturation 22 % (15-50); Potassium 4.8 mmol/L (3.3-5.1); Sodium 140 mmol/L (135-145); Total Iron Binding Capacity 273 mcg/dL (228-428); Total Protein 6.6 g/dL (6.5-8.0); Triglycerides 116 mg/dL; Unsaturated Iron Binding 212 ug/dL
[2021-08-13 12:43] LABS: Creatinine Urine 186.43 mg/dL
[2021-08-13 13:05] LABS: Microalbum/Creatinine Ratio Ur 560.5 ug/mg cr
[2021-08-13 14:53] LABS: Vitamin D 25-OH Total 39.2 ng/mL (>30)
== END 2021-08-13 09:21 | disposition home or self-care (01) ==
LOC: HO.LAB 09:20
PROVIDERS: PCP Internal Medicine; Visit Provider Internal Medicine
DX: D64.9 Anemia, unspecified (principal); K21.9 Gastro-esophageal reflux disease without esophagitis; E78.5 Hyperlipidemia, unspecified; E11.9 Type 2 diabetes mellitus without complications; E55.9 Vitamin D deficiency, unspecified
CPT/HCPCS: 36415; 80053; 80061; 82043; 82306; 83540; 85025

== ENCOUNTER → 2021-09-02 10:06 | Outpatient (BNVA) | payer OTHER, SELFPAY | PROVIDERS: PCP Internal Medicine; Visit Provider Nurse Practitioner Gerontology | DX: E11.65 Type 2 diabetes mellitus with hyperglycemia (principal); E11.42 Type 2 diabetes mellitus with diabetic polyneuropathy; E11.21 Type 2 diabetes mellitus with diabetic nephropathy; E78.5 Hyperlipidemia, unspecified; E66.9 Obesity, unspecified; I10 Essential (primary) hypertension; Z79.4 Long term (current) use of insulin; Z68.31 Body mass index [BMI] 31.0-31.9, adult | CPT/HCPCS: 82947; 96372; 99212; J1815 ==

== ENCOUNTER 2021-09-14 09:07 | Outpatient (REF) | payer OTHER, SELFPAY ==
[2021-09-14 10:12] LABS: Alanine Aminotransferase 15 U/L (0-31); Albumin Level 3.6 g/dL (3.5-5.0); Alkaline Phosphatase 90 U/L (39-117); Anion Gap 12 (12-20); Aspartate Amino Transferase 11 U/L (5-31); Bilirubin Total 0.5 mg/dL (0.0-1.0); Blood Urea Nitrogen 15 mg/dL (9-16); Calcium 9.9 mg/dL (8.4-10.2); Carbon Dioxide 28 mmol/L (22-29); Chloride 103 mmol/L (96-108); Cholesterol 120 mg/dL; Estimated Glomerular Filt Rate 47; Glucose Fasting 318 mg/dL (60-99); HDL Cholesterol 26 mg/dL; LDL Cholesterol Calculated 62 mg/dl; Potassium 5.2 mmol/L (3.3-5.1); Sodium 138 mmol/L (135-145); Total Protein 6.8 g/dL (6.5-8.0); Triglycerides 164 mg/dL
[2021-09-14 10:34] LABS: Thyroid Stimulating Hormone 4.23 uIU/mL (0.32-4.0)
[2021-09-14 11:39] LABS: Microalbum/Creatinine Ratio Ur 776.3 ug/mg cr
[2021-09-16 03:12] LABS: LDL Cholesterol Direct 62 mg/dL (<100)
[2021-09-16 11:06] LABS: Thyroglobulin Antibodies <1 IU/mL (< or = 1); Thyroid Peroxidase Antibodies 1 IU/mL (<9)
== END 2021-09-14 09:08 | disposition home or self-care (01) ==
LOC: HO.LAB 09:07
PROVIDERS: PCP Internal Medicine; Visit Provider Nurse Practitioner Gerontology
DX: E11.42 Type 2 diabetes mellitus with diabetic polyneuropathy (principal); E03.9 Hypothyroidism, unspecified
CPT/HCPCS: 36415; 80053; 80061; 82043; 83721; 84439; 84443; 86376; 86800

== ENCOUNTER → 2021-09-28 09:15 | Outpatient (REF) | payer OTHER, SELFPAY ==
--- NOTE | 2021-09-28 09:19 | CA_ITS ---
Transthoracic Echocardiogram Patient (Last, First, Middle): Catherine Machado, Gender: Female Date of : 1945 Age: 75 Procedure Date: 09/28/2021 Procedure Type: Transthoracic Echocardiogram Location: OP Height: 152. cm Weight: 82. kg BSA: 1.78 m2 Heart Rate: bpm BP: 138 / 68 mmHg Geology Scientist: NARCISA Referring MD: Mike Fonseca MD Application Trainer: Mike Fonseca MD Symptoms: I48.0 - Paroxysmal atrial fibrillation Study Quality: Adequate ECG Rhythm: Sinus Conclusions: - 1. Normal LV systolic function with moderate asymmetric septal hypertrophy with grade 1 diastolic dysfunction next 2. Normal cardiac valvular Doppler 3. Mildly dilated left atrium 4. No gross pericardial effusion Findings Left Ventricle Normal left ventricular size, thickness, and systolic function. The visually estimated ejection fraction is between 60-65%. Spectral Doppler is indicative of an impaired relaxation filling pattern. E/E prime ratio is <8, consistent with normal filling pressures. Evidence suggests grade I (mild) diastolic dysfunction. There is moderate septal asymmetric hypertrophy. Right Ventricle Normal right ventricular cavity size and systolic function. Atria The left atrium is mildly dilated. There is no evidence of interatrial shunt. The right atrium is normal in size. Aortic Valve The aortic valve structure and function is likely normal. There is no aortic valve stenosis. There is no aortic valve regurgitation. Mitral Valve There is mild anterior and posterior mitral leaflet thickening. There is trace mitral valve regurgitation. There is no mitral valve stenosis. Pulmonic Valve The pulmonic valve was not well visualized. Tricuspid Valve Likely normal tricuspid valve structure and function. Tricuspid regurgitation envelope is inadequate for calculation of right ventricular systolic pressure. Great Vessels All visible segments of the aorta are normal in size. The pulmonary artery was not well visualized. Venous The inferior vena cava is normal in size and collapses greater than 50% with inspiration. Pericardium/Pleural There is no evidence of pericardial effusion. Prior Study Comparison No significant change compared to prior study dated: 07/12/2018. Measurements 2D Linear Measurements IVSd: 1.43 0.6-0.9/0.6-1.0 cm LVIDd: 5.44 3.9-5.3/4.2-5.9 cm LVIDs: 3.17 2.0-3.6 cm LVPWd: 0.89 0.7-1.1 cm LA Diam: 3.40 2.7-3.8/3.0-4.0 cm LV Mass: 318.74 67-162/88-224 g LVOT Diam: 1.90 3.0+(-)1.3 cm Mitral Valve MV Pk E: 0.62 MV PK A: 0.91 MV Decel Time: 266.00 E/A: 0.70 E'Lateral: 7.40 E'Medial: 3.92 E/E' Med: 15.80 E/E' Lat: 8.40 PHT: 78.00 MVA PHT: 2.82 Decel Amador: 2.34 Aortic Valve AoV Pk Michael: 0.96 AoV Mn Michael: 0.68 AoV VTI: 0.19 AoV Pk Grad: 4.00 Aov Mn Grad: 2.00 LUKE Cont.VTI: 3.13 LVOT LVOT Pk Michael: 1.07 LVOT Mn Michael: 0.79 LVOT VTI: 0.21 LVOT Pk Grad: 5.00 LVOT Mn Grad: 3.00 LVOT Diam: 1.90 LVOT Area: 2.84 Diastolic Function MV Pk E: 0.62 MV Pk A: 0.91 E/A: 0.70 E'Medial: 3.92 E/E' Med: 15.80 E' Laterial: 7.40 E/E' Lat: 8.40 Right Ventricle TAPSE (mm): 20.70 TVS' Michael: 10.10 Tricuspid Valve RA Press: 3.00 Great Vessels Aorta Sinus of Valsalva: 2.75 2.0-3.[address] [place]: 2.61 1.7-3.4 cm Ao Asc: 3.20 2.1-3.4 cm Pulmonary Valve PV Pk Michael: 0.90 Peak PV Grad: 3.00 Updated in Other Vendor System with Status of Final Mike Fonseca MD electronically signed on 09/28/2021 5:46:56 PM with status of Final
== END ==
LOC: HO.CARD 09:15
PROVIDERS: PCP Internal Medicine; Visit Provider Internal Medicine Cardiovascular Disease
DX: I48.0 Paroxysmal atrial fibrillation (principal)
CPT/HCPCS: 93306

== ENCOUNTER 2021-10-07 10:39 | Outpatient (REF) | payer OTHER, SELFPAY ==
--- NOTE | ~2021-10-07 | US_ITS ---
EXAMINATION: US THYROID CLINICAL INFORMATION: Hypothyroidism, unspecified. COMPARISON: None TECHNIQUE: Linear transducer grayscale and color Doppler examination with attention to the region of the thyroid. FINDINGS: SIZE: Measurements of the thyroid lobes and nodules are given in sagittal, anteroposterior and transverse dimensions respectively. Right Thyroid Lobe: 4.0 x 0.8 x 1.5 cm, volume 2.5 mL. Parenchyma: The gland echotexture is homogeneous. Thyroid vascularity is normal. Left Thyroid Lobe: 3.8 x 1.1 x 1.5 cm, volume 3.3 mL. Parenchyma: The gland echotexture is homogeneous. Thyroid vascularity is normal. Isthmus: 0.7 cm in maximum AP dimension. Estimated total number of nodules greater than or equal to 1 cm: 0. Foam Machine Operator nodules are described as follows: 1. Location: Left mid pole. Size: 0.5 x 0.5 x 0.2 cm, volume 0.03 mL. Nodule characteristics: Composition: Cystic(0). ACR TI-RADS total points: 0 ACR TI-RADS category: 1 2. Location: Isthmus. Size: 0.8 x 0.5 x 0.5 cm, volume 0.10 mL. Nodule characteristics: Composition: Cystic(0). ACR TI-RADS total points: 0 ACR TI-RADS category: 1 3. Location: Right mid pole. Size: 0.5 x 0.3 x 0.3 cm, volume 0.03 mL. Nodule characteristics: Composition: Cystic(0). ACR TI-RADS total points: 0 ACR TI-RADS category: 1 NODES: No lymphadenopathy is seen in the tissue surrounding the thyroid gland. US/US thyroid IMPRESSION: TI-RADS Category 1. No follow-up necessary. ACR TI-RADS RECOMMENDATION REFERENCE: * TR1 (0 point) and TR 2 (2 points): No FNA or follow up * TR3 (3 points): FNA if more than or equal to 2.5 cm in maximum dimension, followup ultrasound in 1, 3 and 5 years if 1.5 to 2.4 cm in maximum dimension. * TR4 (4-6 points): FNA if more than or equal to 1.5 cm in maximum dimension, followup ultrasound in 1, 2, 3 and 5 years if 1 to 1.4 cm in maximum dimension. * TR5 (more than or equal to 7 points): FNA if more than or equal to 1 cm in maximum dimension, followup ultrasound every year for 5 years if 0.5 to 0.9 cm in maximum dimension. * TR3, TR4 or TR5 nodules that are below the size threshold for follow up receive no follow up.
== END 2021-10-07 10:40 | disposition home or self-care (01) ==
LOC: HO.US 10:39
PROVIDERS: PCP Internal Medicine; Visit Provider Nurse Practitioner Gerontology
DX: E03.9 Hypothyroidism, unspecified (principal)
CPT/HCPCS: 76536

== ENCOUNTER 2021-10-13 09:01 | Outpatient (REF) | payer OTHER, SELFPAY ==
[2021-10-13 10:45] LABS: Hematocrit 36.6 % (37.0-47.0); Hemoglobin 12.1 g/dl (12.0-16.0); Mean Corpuscular HGB Conc 33.1 g/dl (31.0-35.0); Mean Corpuscular Hemoglobin 27.3 pg (27.0-33.0); Mean Corpuscular Volume 82.6 fL (80.0-98.0); Mean Platelet Volume 10.7 fL (9.4-12.3); Platelet Count 275 X10*3/uL (160-400); Red Blood Count 4.43 X10*6/uL (4.20-5.50); Red Cell Distribution Width 12.6 % (11.0-16.0); White Blood Count 9.7 X10*3/uL (4.8-10.8)
== END 2021-10-13 09:02 | disposition home or self-care (01) ==
LOC: HO.LAB 09:01
PROVIDERS: PCP Internal Medicine; Referring Provider Internal Medicine; Visit Provider Internal Medicine Cardiovascular Disease
DX: I48.0 Paroxysmal atrial fibrillation (principal); I10 Essential (primary) hypertension
CPT/HCPCS: 36415; 85027; 93005; 99212

== ENCOUNTER 2021-11-08 12:50 | Emergency (ER) | payer OTHER, SELFPAY ==
--- NOTE | ~2021-11-08 | CT_ITS ---
EXAMINATION: CT HEAD WITHOUT CONTRAST AND CHEST. CLINICAL INFORMATION: Epigastric pain, chest pain. COMPARISON: Chest 01/17/2020 TECHNIQUE: Chest 2 views. 5 mm thin axial and reformatted 2 mm thin sagittal and coronal images of brain were obtained without contrast. DLP [id number] FINDINGS: Chest: The lungs are well-expanded and clear. The heart size and pulmonary vascularity is normal. There is moderate spondylosis seen throughout dorsal spine. Brain: There is no acute intra-axial, extra-axial bleed, masses or midline shift. There is no acute infarction evolution. There is no edema. The lateral ventricles are symmetrical in size and configuration with mild enlargement. There is mild periventricular white matter changes in both cerebral hemispheres without mass effect. Otherwise there is normal bolanos and white matter differentiation seen.. Bone windows reveal no calvarial abnormality. There is no scalp soft tissue abnormality seen either. The paranasal sinuses are well-aerated and clear. CT/CT head/brain wo con IMPRESSION: Unremarkable chest exam. No acute intracranial process seen. Mild cerebral volume loss with chronic small vessel ischemic changes in both cerebral hemispheres.
[2021-11-08 12:54] VITALS: BP 121/70; BP 131/49; PULSE 80; PULSE 84; RESP 16; TEMP 37.2; O2SAT 96; BMI 33.8
--- NOTE | 2021-11-08 13:09 | ED.GENADULT ---
HPI - General Adult General Chief complaint: Syncope Stated complaint: SEIZURE Time Seen by Provider: 11/08/21 13:04 Source: patient, family, EMS, RN notes reviewed and old records reviewed Mode of arrival: EMS Limitations: language barrier History of Present Illness HPI narrative: 75-year-old female with past medical history of diabetes, PAF, dementia, CIC, GERD, JOSE DE JESUS, schizophrenia, Alzheimer's disease, obesity, hypertension, dyslipidemia, diabetic polyneuropathy comes in to emergency department via ambulance. Patient was at religious and she fell epigastric discomfort, vomited had pre syncope episode without LOC. Prior to that event patient was at home had lunch ribs with vegetables at 11:00 and went to religious. The event happened shortly after patient came to religious. Patient denies any nausea or vomiting now. Reports to have epigastric discomfort and chest pain. Patient reports that the abdominal pain started 1st, patient states that she has acid reflux now. Had bowel movement this morning. Has history of constipation on Senokot. Denies melena, hematochezia, unintentional weight loss or ribbon like stools. Denies dyspepsia, dysphagia or odynophagia. Onset (ago): hour(s) Location: abdomen Radiation: non-radiation Severity: mild Severity scale (1-10): 3 Quality: aching Related Data Home Medications Medication Instructions Recorded Confirmed citalopram 20 mg tablet 20 mg PO DAILY 04/09/20 10/13/21 lancets 33 gauge #100 ea 04/09/20 08/06/21 pen needle, diabetic 32 gauge x #50 ea 04/09/20 08/06/21 acetaminophen 500 mg tablet 500 mg PO PRN 06/17/20 10/13/21 quetiapine 50 mg tablet 50 mg PO QAM 10/13/21 10/13/21 Previous Rx's Medication Instructions Recorded sennosides 8.6 mg tablet (Whit-chitra) 17.2 mg PO BID constipation 30 06/18/20 days #120 tabs hydroxyzine HCl 25 mg tablet 25 mg PO BID PRN itching 30 days 08/12/20 #60 tabs lancets 28 gauge (FreeStyle #100 ea 09/22/20 Lancets) compr.stocking,knee,long,large #12 ea 10/16/20 pen needle, diabetic 32 gauge x #200 ea 11/17/20 (BD [place] 2nd Gen Pen Needle) diabetic shoes with 3 inserts #3 ea 12/31/20 cholecalciferol (vitamin D3) 25 25 mcg PO DAILY #30 caps 03/14/21 mcg (1,000 unit) capsule (Vitamin D3) blood sugar diagnostic (FreeStyle #100 ea 03/26/21 Lite Strips) flash glucose sensor (FreeStyle 1 ea topical Q2W #2 ea 03/26/21 Carola 14 Day Sensor) blood sugar diagnostic (OneTouch #100 ea 03/31/21 Ultra Test) blood-glucose meter (OneTouch #1 ea 03/31/21 Ultra2 Meter) lancets 33 gauge (OneTouch Delica #100 ea 03/31/21 Lancets) atorvastatin 40 mg tablet 40 mg PO DAILY #90 tabs 04/23/21 ferrous sulfate 325 mg (65 mg 325 mg PO DAILY 90 days #90 tabs 06/11/21 iron) tablet omeprazole 40 mg capsule,delayed 40 mg PO DAILY 90 days #90 caps 06/11/21 release risperidone 1 mg tablet 1 mg PO QAM 90 days #90 tabs 06/11/21 tamoxifen 20 mg tablet 20 mg PO DAILY #30 tabs 06/11/21 magnesium oxide 250 mg PO BID #180 tabs 06/29/21 apixaban 5 mg tablet (Eliquis) 5 mg PO BID 90 days #180 tabs 07/30/21 ascorbic acid (vitamin C) 500 mg 500 mg PO DAILY #30 tabs 07/30/21 tablet (Vitamin C) valsartan 320 mg tablet 320 mg PO DAILY #90 tabs 08/30/21 insulin lispro protamine-lispro See Rx Instructions subcut QAM 90 09/02/21 100 unit/mL (75-25) subcutaneous days #115 mL pen (Humalog Mix 75-25 KwikPen) metformin 750 mg tablet,extended 750 mg PO BID 90 days #180 tabs 09/03/21 release 24 hr dicyclomine 20 mg tablet 20 mg PO QID #120 tabs 09/13/21 dulaglutide 3 mg/0.5 mL 3 mg (0.5 mL) subcut QWEEK 28 days 10/01/21 subcutaneous pen injector #2 mL (Trulicity) amlodipine 5 mg tablet 5 mg PO DAILY 90 days #90 tabs 10/02/21 metoprolol succinate 100 mg 100 mg PO DAILY #30 tabs 10/13/21 tablet,extended release 24 hr (Toprol XL) famotidine 20 mg tablet 20 mg PO BEDTIME #10 tabs 11/08/21 Allergies Allergy/AdvReac Type Severity Reaction Status Date / Time JERMAINE Inhibitors AdvReac Intermediate COUGH Verified 08/06/21 11:08 [JERMAINE INHIBITORS] lactose [LACTOSE] AdvReac Intermediate GI Verified 08/06/21 11:08 DISCOMFORT Review of Systems Review of Systems: Constitutional : No Weight loss, No Fever, No Chills, No Night Sweats, No Fatigue, No Malaise ENT/Mouth : No Hearing loss, No Ear Pain, No Nasal Congestion, No Sinus Pain, No Hoarseness, No sore throat, No Rhinorrhea, No Swallowing Difficulty Eyes: No Eye Pain, No Swelling, No Redness, No Foreign Body, No Discharge, No Vision Changes Cardiovascular : Chest Pain, No SOB, No Dyspnea on Exertion, No Orthopnea, No Edema, No Palpitations Respiratory : No Cough, No Sputum, No Wheezing, No Smoke Exposure, No Dyspnea Gastrointestinal : No Nausea, No Vomiting, No Diarrhea, No Constipation, abdominal Pain, No Hematochezia, No Melena Genitourinary : no irregular bleeding, No Dysuria, No Urinary Frequency, No Hematuria, No Urinary Incontinence, No Urgency, No Flank Pain, No Urinary Flow Changes, No Hesitancy Musculoskeletal : No joint pain, No Myalgias, No Joint Swelling Skin : No Skin Lesions, No rash Neuro : No Weakness, No Numbness, No Paresthesias, No Loss of Consciousness, No Dizziness, No Headache Psych : No Anxiety/Panic, No Depression, No SI/HI/AH/VH, No Social Issues, Heme/Lymph: No Bruising, No Bleeding,No Lymphadenopathy Endocrine : No Polyuria, No Polydipsia, No Temperature Intolerance Yes all other systems are reviewed and are negative [facility] Past Medical History Medical History Bilateral leg pain Depression Diabetes type 2, uncontrolled Diabetic nephropathy associated with type 2 diabetes mellitus Diabetic polyneuropathy associated with type 2 diabetes mellitus Dyslipidemia History of endometrial cancer History of left breast cancer Hypertension Hypothyroidism Iron deficiency anemia shelter (current) use of insulin Microalbuminuria due to type 2 diabetes mellitus Obesity (BMI 30-39.9) Paroxysmal atrial fibrillation Schizophrenia Slurred speech Urticaria Surgical History Hx of breast surgery Hx of eye surgery Hx of total hysterectomy Family History Family History Father No problems noted. Mother Diabetes mellitus Heart disease Social History Social History Household Members: Family and None Household Members Other:: Kajal Menendez [phone] Housing: Apartment Alcohol intake: never Patient Tobacco Use Status: Never used Tobacco e-Cigarette/Vaping Use: Never Used Second Hand Smoke Exposure: No Advance Directives: No Advance Directives Information Provided: No service: No Current occupational status: disabled Physical Exam ED Vital Signs: Vital Signs - 24 hr 11/08/21 12:54 11/08/21 15:29 11/08/21 15:38 Temperature 98.9 F Pulse Rate 80 86 Respiratory Rate 16 19 Blood Pressure 131/49 L 146/74 H Pulse Oximetry 96 99 99 Oxygen Delivery Method Room Air Room Air Room Air BMI result Body Mass Index 33.8 Const General: cooperative, healthy appearing and comfortable Nutritional Appearance: obese Orientation/consciousness: oriented to person and oriented to place HENMT Head: Yes normal to inspection, Yes normocephalic and Yes atraumatic Ears: hearing grossly normal bilaterally General nose exam: Normal external nose present Face and sinus: Yes normal facial exam Mouth: Normal oral and palatal mucosa present Neck Neck: Yes normal visual inspection, Yes no lymphadenopathy and Yes trachea midline Resp Effort & Inspection: normal respiratory effort and able to speak in complete sentences Auscultation: clear to auscultation bilaterally Cardio Rate: regular rate Rhythm: regular rhythm Heart sounds: S1 normal heart sound present and S2 normal heart sound present GI Inspection: Yes obesity Palpation (GI): Soft to palpation, not firm, nontender and no guarding Auscultation: normal bowel sounds General: Yes no CVA tenderness Back/Spine/Pelvis Back: no CVA tenderness Cervical Spine: normal cervical lordosis Thoracic/Lumbar Spine: thoracic and lumbar spine normal to inspection Skin General skin exam: no rashes or lesions noted, elasticity normal and turgor normal Neuro General: oriented to person and oriented to place Extrem General: Yes normal to inspection, Yes full ROM and Yes capillary refill normal Course Course Course Narrative: 75-year-old female with past medical history of diabetes, PAF, dementia, CIC, GERD, JOSE DE JESUS, schizophrenia, Alzheimer's disease, obesity, hypertension, dyslipidemia, diabetic polyneuropathy comes in to emergency department via ambulance. Patient was at religious and she fell epigastric discomfort, vomited had pre syncope episode without LOC. Prior to that event patient was at home had lunch ribs with vegetables at 11:00 and went to religious. The event happened shortly after patient came to religious. Patient denies any nausea or vomiting now. Reports to have epigastric discomfort and chest pain. Patient reports that the abdominal pain started 1st, patient states that she has acid reflux now. Had bowel movement this morning. Has history of constipation on Senokot. Denies melena, hematochezia, unintentional weight loss or ribbon like stools. Denies dyspepsia, dysphagia or odynophagia. Will check CBC, CMP, troponin, CT scan of the head and chest x-ray. Reevaluation(s) Reevaluation #1: Patient reports to be feeling little better right now. Her symptoms of epigastric discomfort were related to The food that she ate this morning, patient most likely vasovagal due to her vomiting. Will give her dose of Pepcid before she goes home. Patient is taking omeprazole in the morning. Patient can follow-up with her PCP and GI specialist Medical Decision Making Lab Data Result diagrams: 11/08/21 13:26 11/08/21 13:26 Labs: Lab Results 11/08/21 11/08/21 11/08/21 Range/Units 13:26 13:26 13:31 WBC 10.3 (4.8-10.8) X10*3/uL RBC 4.06 L (4.20-5.50) X10*6/uL Hgb 11.1 L (12.0-16.0) g/dl Hct 32.6 L (37.0-47.0) % MCV 80.3 (80.0-98.0) fL MCH 27.3 (27.0-33.0) pg MCHC 34.0 (31.0-35.0) g/dl RDW 12.8 (11.0-16.0) % Plt Count 241 (160-400) X10*3/uL MPV 9.8 (9.4-12.3) fL Immature Gran % (Auto) 0.7 H (0.0-0.4) % Neut % (Auto) 63.9 (45-73) % Lymph % (Auto) 27.5 (20-40) % Bell % (Auto) 5.7 (2-11) % Eos % (Auto) 1.9 (0-4) % Baso % (Auto) 0.3 (0-2) % Lymph # (Auto) 2.8 (1.2-4.9) X10*3/uL Bell # (Auto) 0.6 (0.1-1.2) X10*3/uL Eos # (Auto) 0.2 (0.0-0.4) X10*3/uL Baso # (Auto) 0.0 (0.0-0.2) X10*3/uL Abs Immat Gran (auto) 0.07 H (0.00-0.03) X10*3/uL Absolute Neuts (auto) 6.6 (2.0-8.3) x10*3/uL Absolute Nucleated RBC 0.000 (0.0-0.012) X10*3/uL Nucleated RBC % (auto) 0.0 (0.0-0.2) /100WBC Sodium 137 (135-145) mmol/L Potassium 4.0 D (3.3-5.1) mmol/L Chloride 103 (96-108) mmol/L Carbon Dioxide 22 (22-29) mmol/L Anion Gap 16 (12-20) BUN 20 H (9-16) mg/dL Creatinine 1.29 (0.5-1.4) mg/dL Estim Creat Clear Calc 37.8 Estimated GFR 40 Random Glucose 281 H (60-115) mg/dL Calcium 9.2 D (8.4-10.2) mg/dL Total Bilirubin 0.2 (0.0-1.0) mg/dL AST 13 (5-31) U/L ALT 19 (0-31) U/L Alkaline Phosphatase 85 (39-117) U/L Troponin I High Sens < 3.5 (<3.5-17.0) ng/L Total Protein 6.6 (6.5-8.0) g/dL Albumin 3.4 L (3.5-5.0) g/dL Imaging Data CT scan - head: Attestation: I personally reviewed and interpreted this imaging study as follows: Radiologist's impression: FINDINGS: Chest: The lungs are well-expanded and clear. The heart size and pulmonary vascularity is normal. There is moderate spondylosis seen throughout dorsal spine. Brain: There is no acute intra-axial, extra-axial bleed, masses or midline shift. There is no acute infarction evolution. There is no edema. The lateral ventricles are symmetrical in size and configuration with mild enlargement. There is mild periventricular white matter changes in both cerebral hemispheres without mass effect. Otherwise there is normal bolanos and white matter differentiation seen.. Bone windows reveal no calvarial abnormality. There is no scalp soft tissue abnormality seen either. The paranasal sinuses are well-aerated and clear. CT/CT head/brain wo con IMPRESSION: Unremarkable chest exam. ? No acute intracranial process seen. ? Mild cerebral volume loss with chronic small vessel ischemic changes in both cerebral hemispheres. ECG Data Attestation: I personally reviewed and interpreted this ECG as follows: Interpretation: Ventricular rate 80, atrial rate 80, MS interval 0.16, P-R-T axis: [id number] Discharge Plan Discharge Clinical Impression: Vasovagal syncope GERD (gastroesophageal reflux disease) Qualifiers: Esophagitis presence: esophagitis presence not specified Qualified Code(s): K21.9 - Gastro-esophageal reflux disease without esophagitis Patient Disposition: Home, Self-Care Instructions: Gastroesophageal Reflux Disease (ED), Epigastric Pain (ED) Additional Instructions: Usted fue visto aqu? hoy por molestias epig?stricas. Antony tomograf?a computarizada y todos ana an?lisis de marlon son normales. Radhika un seguimiento con antony proveedor de atenci?n primaria y con antony especialista gastrointestinal. Regrese al departamento de emergencias si ana s?ntomas empeoran o si experimenta alg?n otro s?ntoma preocupante. Contin?e tomando omeprazol media hora antes del desayuno todos los d?as y comience a chika 20 mg de famotidina antes de acostarse. Prescriptions: New famotidine 20 mg tablet 20 mg PO BEDTIME Qty: 10 0RF No Action (DME) lancets [FreeStyle Lancets] 28 gauge misc See Rx Instructions .ROUTE .MEDSUPPLY Qty: 100 11RF Rx Instructions: use 1 lancet four times a day (DME) diabetic shoes with 3 inserts 8 See Rx Instructions .Route .MEDSUPPLY Qty: 3 0RF Rx Instructions: As directed cholecalciferol (vitamin D3) [Vitamin D3] 25 mcg (1,000 unit) capsule 25 mcg PO DAILY Qty: 30 11RF (DME) lancets [OneTouch Delica Lancets] 33 gauge misc See Rx Instructions .Route Qty: 100 11RF Rx Instructions: Use 1 lancet three times a day (DME) OneTouch Ultra Test Strip See Rx Instructions .Route Qty: 100 11RF Rx Instructions: Use 1 test strip three times a day (DME) blood-glucose meter [OneTouch Ultra2 Meter] Kit See Rx Instructions .Route Qty: 1 0RF Rx Instructions: As directed atorvastatin 40 mg tablet 40 mg PO DAILY Qty: 90 3RF risperidone 1 mg tablet 1 mg PO QAM 90 Days Qty: 90 1RF ferrous sulfate 325 mg (65 mg iron) tablet 325 mg PO DAILY 90 Days Qty: 90 3RF omeprazole 40 mg capsule,delayed release(DR/EC) 40 mg PO DAILY 90 Days Qty: 90 3RF tamoxifen 20 mg tablet 20 mg PO DAILY Qty: 30 6RF magnesium oxide 250 mg magnesium tablet 250 mg PO BID Qty: 180 2RF Eliquis 5 mg tablet 5 mg PO BID 90 Days Qty: 180 3RF ascorbic acid (vitamin C) [Vitamin C] 500 mg tablet 500 mg PO DAILY Qty: 30 10RF valsartan 320 mg tablet 320 mg PO DAILY Qty: 90 2RF metformin 750 mg tablet extended release 24 hr 750 mg PO BID 90 Days Qty: 180 2RF dicyclomine 20 mg tablet 20 mg PO QID Qty: 120 5RF Trulicity 3 mg/0.5 mL pen injector 3 mg subcut QWEEK 28 Days Qty: 2 6RF amlodipine 5 mg tablet 5 mg PO DAILY 90 Days Qty: 90 1RF FreeStyle Carola 14 Day Sensor Kit 1 ea topical Q2W Qty: 2 11RF (DME) FreeStyle Lite Strips Strip See Rx Instructions .Route Qty: 100 4RF Rx Instructions: Use 1 test strip three times a day hydroxyzine HCl 25 mg tablet 25 mg PO BID PRN (Reason: itching) 30 Days Qty: 60 2RF sennosides [Whit-chitra] 8.6 mg tablet 17.2 mg PO BID 30 Days Qty: 120 6RF (DME) compr.stocking,knee,long,large Misc See Rx Instructions .ROUTE .MEDSUPPLY Qty: 12 0RF Rx Instructions: As directed citalopram 20 mg tablet 20 mg PO DAILY (DME) pen needle, diabetic 32 gauge x 5/32 needle See Rx Instructions subcut .MEDSUPPLY Qty: 50 Rx Instructions: As directed (DME) lancets 33 gauge misc See Rx Instructions Not Applicable QID Qty: 100 Rx Instructions: As directed acetaminophen 500 mg tablet 500 mg PO PRN (DME) pen needle, diabetic [BD [place] 2nd Gen Pen Needle] 32 gauge x 5/32 needle See Rx Instructions .MEDSUPPLY Qty: 200 4RF Rx Instructions: 2 times a day quetiapine 50 mg tablet 50 mg PO QAM metoprolol succinate [Toprol XL] 100 mg tablet extended release 24 hr 100 mg PO DAILY Qty: 30 11RF insulin lispro protamin-lispro [Humalog Mix 75-25 KwikPen] 100 unit/mL (75-25) insulin pen See Rx Instructions subcut QAM 90 Days Qty: 115 3RF Rx Instructions: 90 units before breakfast and 30 units before dinner subcut every morning; Referrals: Kindra Ramos ANP-C [Nurse Practitioner] - 2 weeks (GERD, epigastric discomfort, nausea) Yesi Linares MD [Physician] - 1 week (Epigastric discomfort, nausea vomiting) Interventions: ED Discharge Assessment Last Done: 11/08/21 16:42 Discharge Date/Time: 11/08/21 16:42
--- NOTE | 2021-11-08 13:19 | ECG_ITS ---
Test Reason : SYNCOPE Blood Pressure : / mmHG Vent. Rate : 080 BPM Atrial Rate : 080 BPM P-R Int : 154 ms QRS Dur : 096 ms QT Int : 390 ms P-R-T Axes : 034 -07 046 degrees QTc Int : 449 ms Normal sinus rhythm Minimal voltage criteria for LVH, may be normal variant ( [place] product ) Inferior infarct (cited on or before 12-JUL-2018) Anterior infarct , age undetermined Abnormal ECG When compared with ECG of 17-JAN-2020 15:03, Left posterior fascicular block is no longer Present Anterior infarct is now Present Questionable change in initial forces of Inferior leads Non-specific change in ST segment in Lateral leads Referred By: Yaquelin Yoder Electronically Signed By:Alonso Goins
[2021-11-08 13:30] LABS: MANUAL DIFF FLAG NO
[2021-11-08 13:31] LABS: Basophils Percent Auto 0.3 % (0-2); Eosinophils Absolute Auto 0.2 X10*3/uL (0.0-0.4); Eosinophils Percent Auto 1.9 % (0-4); Hematocrit 32.6 % (37.0-47.0); Hemoglobin 11.1 g/dl (12.0-16.0); Imm Gran Abs Auto 0.07 X10*3/uL (0.00-0.03); Imm Gran Pct Auto 0.7 % (0.0-0.4); Lymphocytes Absolute Auto 2.8 X10*3/uL (1.2-4.9); Lymphocytes Percent Auto 27.5 % (20-40); Mean Corpuscular Hemoglobin 27.3 pg (27.0-33.0); Mean Corpuscular Volume 80.3 fL (80.0-98.0); Mean Platelet Volume 9.8 fL (9.4-12.3); Monocytes Absolute Auto 0.6 X10*3/uL (0.1-1.2); Monocytes Percent Auto 5.7 % (2-11); Neutrophils Absolute Auto 6.6 x10*3/uL (2.0-8.3); Neutrophils Percent Auto 63.9 % (45-73); Platelet Count 241 X10*3/uL (160-400); Red Blood Count 4.06 X10*6/uL (4.20-5.50); Red Cell Distribution Width 12.8 % (11.0-16.0); White Blood Count 10.3 X10*3/uL (4.8-10.8)
[2021-11-08] MEDS: 0.9 % Sodium Chloride 500 ML IV (13:31)
[2021-11-08 13:53] LABS: Alanine Aminotransferase 19 U/L (0-31); Albumin Level 3.4 g/dL (3.5-5.0); Alkaline Phosphatase 85 U/L (39-117); Anion Gap 16 (12-20); Aspartate Amino Transferase 13 U/L (5-31); Bilirubin Total 0.2 mg/dL (0.0-1.0); Blood Urea Nitrogen 20 mg/dL (9-16); Calcium 9.2 mg/dL (8.4-10.2); Carbon Dioxide 22 mmol/L (22-29); Chloride 103 mmol/L (96-108); Creatinine Clr Calc Pharmacy 37.8; Estimated Glomerular Filt Rate 40; Glucose Random 281 mg/dL (60-115); Sodium 137 mmol/L (135-145); Total Protein 6.6 g/dL (6.5-8.0)
--- NOTE | 2021-11-08 14:36 | PC.NURSE ---
@ THIS TIME DAUGHTER LEAVE TO HOME GIVING HER NAME AND NUMBER FOR US TO CALL WITH INFO OR RIDE HOME [facility] [phone]
[2021-11-08 14:39] LABS: Troponin-I High Sensitivity < 3.5 ng/L (<3.5-17.0)
[2021-11-08 15:29] VITALS: BP 146/74; PULSE 86; RESP 19; O2SAT 99
[2021-11-08] MEDS: Famotidine/PF 20 MG/2 ML VIAL IVPUSH (15:33)
--- NOTE | 2021-11-08 15:36 | PC.NURSE ---
pt a&ox3, vss, spoke w pt via sign language interpreter, medicated pt per provider order, pt c/o intermittent 8/10 epigastric pain, ivf running, plan to call daughter for rider home and d/c pt. no new orders at this time.
[2021-11-08 15:38] VITALS: O2SAT 99
--- NOTE | 2021-11-08 15:42 | PC.NURSE ---
spoke w daughter, on her way to come p/u pt.
[2021-11-09 00:18] LABS: Glucose, Whole Blood 262 mg/dL (60-115)
== END 2021-11-08 16:42 | disposition home or self-care (01) ==
PROVIDERS: Nurse Practitioner Family; Emergency Provider Emergency Medicine Emergency Medical Services
DX: R55 Syncope and collapse (principal); R10.13 Epigastric pain; K21.9 Gastro-esophageal reflux disease without esophagitis; R07.89 Other chest pain; Z79.899 Other long term (current) drug therapy
CPT/HCPCS: 36415; 70450; 71046; 80053; 82947; 84484; 85025; 93005; 96360; 96361; 99284

== ENCOUNTER 2021-12-29 09:05 | Outpatient (REF) | payer OTHER, MEDICAID, SELFPAY ==
[2021-12-29 10:03] LABS: Alanine Aminotransferase 24 U/L (0-31); Albumin Level 3.8 g/dL (3.5-5.0); Alkaline Phosphatase 86 U/L (39-117); Anion Gap 16 (12-20); Aspartate Amino Transferase 20 U/L (5-31); Bilirubin Total 0.3 mg/dL (0.0-1.0); Blood Urea Nitrogen 13 mg/dL (9-16); Calcium 9.8 mg/dL (8.4-10.2); Carbon Dioxide 25 mmol/L (22-29); Chloride 104 mmol/L (96-108); Cholesterol 107 mg/dL; Estimated Glomerular Filt Rate 50; Glucose Fasting 170 mg/dL (60-99); HDL Cholesterol 28 mg/dL; LDL Cholesterol Calculated 56 mg/dl; Sodium 140 mmol/L (135-145); Total Protein 6.9 g/dL (6.5-8.0); Triglycerides 116 mg/dL
[2021-12-29 10:27] LABS: Thyroid Stimulating Hormone 3.68 uIU/mL (0.32-4.0); Vitamin D 25-OH Total 48.2 ng/mL (>30)
[2021-12-29 10:51] LABS: Creatinine Urine 132.06 mg/dL
[2021-12-29 11:19] LABS: Microalbum/Creatinine Ratio Ur 466.4 ug/mg cr
== END 2021-12-29 09:06 | disposition home or self-care (01) ==
LOC: HO.LAB 09:05
PROVIDERS: PCP Internal Medicine; Visit Provider Internal Medicine
DX: E11.29 Type 2 diabetes mellitus with other diabetic kidney complication (principal); R80.9 Proteinuria, unspecified; E78.5 Hyperlipidemia, unspecified; E55.9 Vitamin D deficiency, unspecified; R79.89 Other specified abnormal findings of blood chemistry
CPT/HCPCS: 36415; 80053; 80061; 82043; 82306; 84443

== ENCOUNTER → 2022-01-15 12:59 | Outpatient (BNVA) | payer OTHER, MEDICAID, SELFPAY | PROVIDERS: PCP Internal Medicine; Visit Provider Internal Medicine Endocrinology, Diabetes & Metabolism | DX: E11.65 Type 2 diabetes mellitus with hyperglycemia (principal) | CPT/HCPCS: 82947; 99212 ==

== ENCOUNTER → 2022-02-05 09:58 | Outpatient (BNVA) | payer OTHER, MEDICAID, SELFPAY | PROVIDERS: PCP Internal Medicine; Visit Provider Registered Nurse Diabetes Educator | DX: E11.29 Type 2 diabetes mellitus with other diabetic kidney complication (principal); R80.9 Proteinuria, unspecified | CPT/HCPCS: 99211 ==

== ENCOUNTER → 2022-02-19 09:52 | Outpatient (BNVA) | payer OTHER, MEDICAID, SELFPAY | PROVIDERS: PCP Internal Medicine; Visit Provider Registered Nurse Diabetes Educator | DX: E11.29 Type 2 diabetes mellitus with other diabetic kidney complication (principal); R80.9 Proteinuria, unspecified | CPT/HCPCS: 99211 ==

== ENCOUNTER → 2022-03-11 09:24 | Outpatient (BNVA) | payer OTHER, MEDICAID, SELFPAY | PROVIDERS: PCP Internal Medicine; Visit Provider Dietitian, Registered | DX: E11.65 Type 2 diabetes mellitus with hyperglycemia (principal) | CPT/HCPCS: 97802 ==

== ENCOUNTER → 2022-03-19 10:01 | Outpatient (BNVA) | payer OTHER, MEDICAID, SELFPAY | PROVIDERS: PCP Internal Medicine; Visit Provider Registered Nurse Diabetes Educator | DX: E11.29 Type 2 diabetes mellitus with other diabetic kidney complication (principal); R80.9 Proteinuria, unspecified | CPT/HCPCS: 99211 ==

== ENCOUNTER → 2022-04-06 09:04 | Outpatient (BNVA) | payer OTHER, MEDICAID, SELFPAY | PROVIDERS: PCP Internal Medicine; Visit Provider Registered Nurse Diabetes Educator | DX: E11.29 Type 2 diabetes mellitus with other diabetic kidney complication (principal); R80.9 Proteinuria, unspecified | CPT/HCPCS: 99211 ==

== ENCOUNTER → 2022-05-20 09:57 | Outpatient (BNVA) | payer OTHER, MEDICAID, SELFPAY | PROVIDERS: PCP Internal Medicine; Visit Provider Registered Nurse Diabetes Educator | DX: E11.29 Type 2 diabetes mellitus with other diabetic kidney complication (principal); R80.9 Proteinuria, unspecified | CPT/HCPCS: 99211 ==

== ENCOUNTER → 2022-05-21 10:06 | Outpatient (BNVA) | payer OTHER, MEDICAID, SELFPAY | PROVIDERS: PCP Internal Medicine; Visit Provider Internal Medicine Endocrinology, Diabetes & Metabolism | DX: E11.65 Type 2 diabetes mellitus with hyperglycemia (principal) | CPT/HCPCS: 82947; 83036; 99212 ==

== ENCOUNTER 2022-06-08 07:57 | Outpatient (REF) | payer OTHER, MEDICAID, SELFPAY ==
--- NOTE | ~2022-06-08 | MM_ITS ---
EXAMINATION: MM SCREENING DIGITAL BREAST TOMOSYNTHESIS, BILATERAL CLINICAL INFORMATION: Screening. Asymptomatic. Left IDC status post lumpectomy, 11/26/2016. COMPARISON: Mammography: 04/24/2021, 12/11/2019, 11/10/2018, 11/25/2017, 06/20/2017 TECHNIQUE: Digital breast tomosynthesis is performed in both the craniocaudal and mediolateral oblique views along with computer-aided detection (CAD). Synthesized 2D images are generated from the tomosynthesis. FINDINGS: There are scattered areas of fibroglandular density (ACR BI-RADS breast composition Category b). Parenchymal pattern is similar to prior studies. There is no developing density or interval mass or abnormal calcifications. Post therapy changes left breast are again seen with some coarsening of the stromal markings upper outer quadrant and left axillary clips. There are no significant changes. MM/MM tomosynthesis screening BI IMPRESSION: No significant changes from prior studies. ASSESSMENT: BI-RADS 2: Benign RECOMMENDATION: Routine annual mammography screening. This patient's information was entered into a reminder system with a target due date for their next mammogram.
== END 2022-06-08 07:58 | disposition home or self-care (01) ==
LOC: HO.MAMMO 07:57
PROVIDERS: PCP Internal Medicine; Visit Provider Internal Medicine
DX: Z12.31 Encounter for screening mammogram for malignant neoplasm of breast (principal)
CPT/HCPCS: 77063; 77067

== ENCOUNTER 2022-06-22 09:20 | Outpatient (REF) | payer OTHER, MEDICAID, SELFPAY ==
[2022-06-22 09:40] LABS: MANUAL DIFF FLAG NO
[2022-06-22 10:12] LABS: Basophils Percent Auto 0.3 % (0-2); Eosinophils Absolute Auto 0.2 X10*3/uL (0.0-0.4); Eosinophils Percent Auto 2.3 % (0-4); Hematocrit 34.2 % (37.0-47.0); Hemoglobin 11.5 g/dl (12.0-16.0); Imm Gran Abs Auto 0.01 X10*3/uL (0.00-0.03); Imm Gran Pct Auto 0.1 % (0.0-0.4); Lymphocytes Absolute Auto 1.9 X10*3/uL (1.2-4.9); Lymphocytes Percent Auto 26.7 % (20-40); Mean Corpuscular HGB Conc 33.6 g/dl (31.0-35.0); Mean Corpuscular Hemoglobin 27.2 pg (27.0-33.0); Mean Corpuscular Volume 80.9 fL (80.0-98.0); Mean Platelet Volume 11.1 fL (9.4-12.3); Monocytes Absolute Auto 0.5 X10*3/uL (0.1-1.2); Monocytes Percent Auto 7.4 % (2-11); Neutrophils Absolute Auto 4.4 x10*3/uL (2.0-8.3); Neutrophils Percent Auto 63.2 % (45-73); Platelet Count 255 X10*3/uL (160-400); Red Blood Count 4.23 X10*6/uL (4.20-5.50); Red Cell Distribution Width 12.8 % (11.0-16.0); White Blood Count 6.9 X10*3/uL (4.8-10.8)
[2022-06-22 10:55] LABS: Creatinine Urine 100.02 mg/dL; Microalbum/Creatinine Ratio Ur 419.9 ug/mg cr
[2022-06-22 11:08] LABS: Alanine Aminotransferase 30 U/L (0-31); Albumin Level 3.5 g/dL (3.5-5.0); Alkaline Phosphatase 84 U/L (39-117); Anion Gap 12 (12-20); Aspartate Amino Transferase 27 U/L (5-31); Bilirubin Total 0.3 mg/dL (0.0-1.0); Blood Urea Nitrogen 20 mg/dL (9-16); Calcium 9.3 mg/dL (8.4-10.2); Carbon Dioxide 23 mmol/L (22-29); Chloride 107 mmol/L (96-108); Cholesterol 118 mg/dL; Estimated Glomerular Filt Rate 48; Glucose Fasting 342 mg/dL (60-99); HDL Cholesterol 25 mg/dL; Iron 83 mcg/dL (30-160); LDL Cholesterol Calculated 58 mg/dl; Percent Iron Saturation 32 % (15-50); Potassium 4.4 mmol/L (3.3-5.1); Sodium 138 mmol/L (135-145); Total Iron Binding Capacity 258 mcg/dL (228-428); Total Protein 6.5 g/dL (6.5-8.0); Triglycerides 176 mg/dL; Unsaturated Iron Binding 175 ug/dL
[2022-06-22 11:23] LABS: Folate 15.6 ng/mL (> or = 4.0); Thyroid Stimulating Hormone 3.15 uIU/mL (0.32-4.0); Vitamin B12 537 pg/mL (200-900); Vitamin D 25-OH Total 43.2 ng/mL (>30)
== END 2022-06-22 09:21 | disposition home or self-care (01) ==
LOC: HO.LAB 09:20
PROVIDERS: PCP Internal Medicine; Visit Provider Internal Medicine
DX: E53.8 Deficiency of other specified B group vitamins (principal); D64.9 Anemia, unspecified; E11.65 Type 2 diabetes mellitus with hyperglycemia; E03.9 Hypothyroidism, unspecified; E55.9 Vitamin D deficiency, unspecified; E78.5 Hyperlipidemia, unspecified
CPT/HCPCS: 36415; 80053; 80061; 82043; 82306; 82607; 82746; 83540; 84443; 85025

== ENCOUNTER → 2022-08-06 09:47 | Outpatient (BNVA) | payer OTHER, MEDICAID, SELFPAY | PROVIDERS: PCP Internal Medicine; Visit Provider Dietitian, Registered | DX: E11.65 Type 2 diabetes mellitus with hyperglycemia (principal); Z79.4 Long term (current) use of insulin; Z79.84 Long term (current) use of oral hypoglycemic drugs | CPT/HCPCS: 97802 ==

== ENCOUNTER → 2022-09-15 09:57 | Outpatient (BNVA) | payer OTHER, MEDICAID, SELFPAY | PROVIDERS: PCP Internal Medicine; Visit Provider Internal Medicine Endocrinology, Diabetes & Metabolism | DX: E11.65 Type 2 diabetes mellitus with hyperglycemia (principal); Z79.84 Long term (current) use of oral hypoglycemic drugs; Z79.85 Long-term (current) use of injectable non-insulin antidiabetic drugs | CPT/HCPCS: 82947; 83036; 99212 ==

== ENCOUNTER → 2022-09-16 09:31 | Outpatient (BNVA) | payer OTHER, MEDICAID, SELFPAY | PROVIDERS: PCP Internal Medicine; Visit Provider Dietitian, Registered | DX: E11.65 Type 2 diabetes mellitus with hyperglycemia (principal); G30.9 Alzheimer's disease, unspecified | CPT/HCPCS: 97803 ==

== ENCOUNTER 2022-10-31 13:01 | Emergency (ER) | payer OTHER, SELFPAY ==
--- NOTE | ~2022-10-31 | CT_ITS ---
EXAMINATION: CT ABDOMEN AND PELVIS WITH CONTRAST CLINICAL INFORMATION: Epigastric abdominal pain. COMPARISON: Multiple priors with last abdomen and pelvic CT scan of 07/11/2018. TECHNIQUE: Multidetector volumetric images were obtained from the superior aspect of the liver through the pubic symphysis following administration 85 mL of Omnipaque 350 intravenous contrast. Sagittal and coronal reformatted images were obtained on the technologist's workstation. Oral contrast: No This CT examination was performed using dose optimization techniques as appropriate, variously including the following: *Automated exposure control *Adjustment of mA and/or kV according to patient size (this includes techniques or standardized protocols for targeted exams where dose is matched to indication/reason for exam; i.e. extremities or head) *Use of iterative reconstruction technique DLP: 958 mGy-cm FINDINGS: LUNG BASES: The visualized lung bases are unremarkable. LIVER, GALLBLADDER, AND BILIARY TREE: The liver is normal in size, shape, and attenuation. No focal hepatic lesion or biliary ductal dilatation is present. The gallbladder is unremarkable with no evidence of radiopaque gallstones, gallbladder wall thickening, or obvious pericholecystic inflammatory changes. PANCREAS: Unremarkable. SPLEEN: Unremarkable. ADRENAL GLANDS: Stable nodular appearance of the bilateral adrenal glands since the previous CT scan of 08/04/2017. KIDNEYS AND URETERS: The kidneys are normal in size, shape, and attenuation. No hydronephrosis, hydroureter, or calculi seen. No perinephric stranding. A 1.5 cm low-attenuation lesion in the lower pole of the left kidney represents a cyst by CT Hounsfield units criteria and no further imaging follow-up of this finding is warranted. BLADDER: Underdistended however grossly unremarkable. GASTROINTESTINAL TRACT: Small hiatal hernia. The stomach is distended with ingested material however grossly appears unremarkable. No abnormal small bowel dilatation. An appendix is normal. The colon is normal in caliber. No evidence of colonic wall thickening or pericolonic fat stranding. ABDOMINAL WALL: No significant hernia is appreciated. LYMPH NODES: No evidence of pathologically enlarged lymph nodes. VASCULAR: The aortoiliac vessels are normal in caliber. Moderate calcific atherosclerosis of the aortoiliac vessels. PELVIC VISCERA: Uterus is not seen, either severely atrophic or surgically absent. No adnexal mass. OSSEOUS STRUCTURES: Osteopenia. No evidence of acute or suspicious osseous lesions. CT/CT abdomen pelvis w IV con IMPRESSION: 1. No acute or other significant abnormalities are identified to explain patient's symptoms. No CT evidence of acute pancreatitis. No CT evidence of acute cholecystitis. No radiopaque gallstones are seen. 2. Small hiatal hernia. Fleischner guidelines were followed.
[2022-10-31 13:09] VITALS: BP 134/47; BP 145/51; PULSE 56; PULSE 61; RESP 18; TEMP 37.1; O2SAT 97; O2SAT 98; BMI 45.7
[2022-10-31 13:19] LABS: Glucose, Whole Blood 202 mg/dL (60-115)
[2022-10-31 14:01] LABS: MANUAL DIFF FLAG NO
[2022-10-31 14:02] LABS: Basophils Percent Auto 0.3 % (0-2); Eosinophils Absolute Auto 0.2 X10*3/uL (0.0-0.4); Eosinophils Percent Auto 2.1 % (0-4); Hematocrit 34.1 % (37.0-47.0); Hemoglobin 11.6 g/dl (12.0-16.0); Imm Gran Abs Auto 0.04 X10*3/uL (0.00-0.03); Imm Gran Pct Auto 0.4 % (0.0-0.4); Lymphocytes Absolute Auto 2.8 X10*3/uL (1.2-4.9); Mean Corpuscular Hemoglobin 28.1 pg (27.0-33.0); Mean Corpuscular Volume 82.6 fL (80.0-98.0); Mean Platelet Volume 10.8 fL (9.4-12.3); Monocytes Absolute Auto 0.7 X10*3/uL (0.1-1.2); Neutrophils Absolute Auto 5.9 x10*3/uL (2.0-8.3); Neutrophils Percent Auto 61.2 % (45-73); Platelet Count 253 X10*3/uL (160-400); Red Blood Count 4.13 X10*6/uL (4.20-5.50); Red Cell Distribution Width 12.8 % (11.0-16.0); White Blood Count 9.6 X10*3/uL (4.8-10.8)
[2022-10-31 14:08] LABS: INTERNATIONAL NORM RATIO 0.9 (0.9-1.1); Prothrombin Time 10.6 SEC (10.0-13.1)
[2022-10-31 14:15] LABS: Alanine Aminotransferase 25 U/L (0-31); Albumin Level 3.3 g/dL (3.5-5.0); Alkaline Phosphatase 70 U/L (39-117); Anion Gap 13 (12-20); Aspartate Amino Transferase 29 U/L (5-31); Bilirubin Total 0.2 mg/dL (0.0-1.0); Blood Urea Nitrogen 33 mg/dL (9-16); Calcium 9.8 mg/dL (8.4-10.2); Carbon Dioxide 23 mmol/L (22-29); Chloride 110 mmol/L (96-108); Creatinine Clr Calc Pharmacy 33.1; Estimated Glomerular Filt Rate 45; Glucose Random 201 mg/dL (60-115); Potassium 4.5 mmol/L (3.3-5.1); Sodium 141 mmol/L (135-145); Total Protein 6.4 g/dL (6.5-8.0)
[2022-10-31 14:30] LABS: Lactic Acid 2.7 mmol/L (0.5-2.0)
--- NOTE | 2022-10-31 14:55 | ED_ITS ---
HPI - General Adult General Chief complaint: General Medical Stated complaint: Abd pain, fainted per EMS Time Seen by Provider: 10/31/22 13:14 Source: patient and EMS Mode of arrival: EMS History of Present Illness HPI narrative: 76-year-old female history of diabetes is brought in from EMS from [facility] when they were called because patient appears to be altered from baseline mentation, patient herself states that she had epigastric discomfort with nausea and an episode of vomiting. She denies any fevers or chills or urinary symptoms. Related Data Home Medications Medication Instructions Recorded Confirmed citalopram 20 mg tablet 20 mg PO DAILY 04/09/20 10/06/22 lancets 33 gauge #100 ea 04/09/20 10/06/22 pen needle, diabetic 32 gauge x #50 ea 04/09/20 10/06/22 acetaminophen 500 mg tablet 500 mg PO PRN 06/17/20 10/06/22 acetaminophen 650 mg 650 mg PO Q8H PRN moderate pain 09/15/22 10/06/22 tablet,extended release chlorhexidine gluconate 0.12 % ml PO 09/15/22 10/06/22 mouthwash Previous Rx's Medication Instructions Recorded sennosides 8.6 mg tablet (Whit-chitra) 17.2 mg PO BID constipation 30 06/18/20 days #120 tabs hydroxyzine HCl 25 mg tablet 25 mg PO BID PRN itching 30 days 08/12/20 #60 tabs lancets 28 gauge (FreeStyle #100 ea 09/22/20 Lancets) compr.stocking,knee,long,large #12 ea 10/16/20 diabetic shoes with 3 inserts #3 ea 12/31/20 metoprolol succinate 100 mg 100 mg PO DAILY #30 tabs 10/13/21 tablet,extended release 24 hr (Toprol XL) famotidine 20 mg tablet 20 mg PO BEDTIME #10 tabs 11/08/21 blood-glucose meter (FreeStyle #1 ea 12/11/21 Precision En Meter) lancets 28 gauge (FreeStyle #100 ea 12/11/21 Lancets) quetiapine 50 mg tablet 50 mg PO QAM 90 days #90 tabs 12/21/21 risperidone 1 mg tablet 1 mg PO QAM 90 days #90 tabs 08/01/22 pen needle, diabetic 32 gauge x #200 ea 01/04/22 (BD Trinidad 2nd Gen Pen Needle) flash glucose scanning reader #1 ea 03/19/22 (FreeStyle Carola 2 [place]) cholecalciferol (vitamin D3) 25 25 mcg PO DAILY #30 caps 03/26/22 mcg (1,000 unit) capsule (Vitamin D3) dicyclomine 20 mg tablet 20 mg PO QID #120 tabs 03/26/22 flash glucose sensor (FreeStyle #2 ea 04/05/22 Carola 2 Sensor kit) atorvastatin 40 mg tablet 40 mg PO DAILY #90 tabs 06/11/22 magnesium oxide 250 mg PO BID #180 tabs 06/11/22 valsartan 320 mg tablet 320 mg PO DAILY #90 tabs 06/21/22 ferrous sulfate 325 mg (65 mg 325 mg PO DAILY 90 days #90 tabs 07/07/22 iron) tablet omeprazole 40 mg capsule,delayed 40 mg PO DAILY 90 days #90 caps 07/07/22 release ondansetron 4 mg disintegrating 4 mg PO Q8H PRN nausea and 08/10/22 tablet vomiting 7 days #21 tabs blood sugar diagnostic (FreeStyle #50 strips 08/11/22 Precision En Strips) ascorbic acid (vitamin C) 500 mg 500 mg PO DAILY #30 tabs 08/16/22 tablet (Vitamin C) apixaban 5 mg tablet (Eliquis) 5 mg PO BID 90 days #180 tabs 08/26/22 tamoxifen 20 mg tablet 20 mg PO DAILY #30 tabs 09/15/22 insulin lispro 100 unit/mL 30 unit (0.3 mL) subcut TID 30 09/27/22 subcutaneous pen (Humalog KwikPen days #27 mL (U-100) Insulin) insulin glargine 100 unit/mL (3 75 unit (0.75 mL) subcut DAILY 90 10/06/22 mL) subcutaneous pen (Lantus days #67.5 mL Solostar U-100 Insulin) sucralfate 1 gram tablet 1 g PO BID 30 days #60 tabs 10/06/22 amlodipine 5 mg tablet 5 mg PO DAILY 90 days #90 tabs 10/12/22 Allergies Allergy/AdvReac Type Severity Reaction Status Date / Time JERMAINE Inhibitors AdvReac Intermediate COUGH Verified 10/06/22 13:49 [JERMAINE INHIBITORS] lactose [LACTOSE] AdvReac Intermediate GI Verified 10/06/22 13:49 DISCOMFORT Review of Systems Review of Systems: Pertinent positives and negatives as stated in HPI PMFSH Past Medical History Source: nursing notes reviewed Medical History Bilateral leg pain Depression Diabetes type 2, uncontrolled Diabetic nephropathy associated with type 2 diabetes mellitus Diabetic polyneuropathy associated with type 2 diabetes mellitus Dyslipidemia History of endometrial cancer History of left breast cancer Hypertension Hypothyroidism Iron deficiency anemia 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 Mother Diabetes mellitus Heart disease Social History Social History Household Members: Family and None Household Members Other:: Kajal Menendez [phone] Housing: Apartment Alcohol intake: never Patient Tobacco Use Status: Never used Tobacco e-Cigarette/Vaping Use: Never Used Second Hand Smoke Exposure: No Advance Directives: No service: No Current occupational status: disabled Cognitive needs: Yes Hearing needs: No Vision needs: Yes Physical Exam ED Vital Signs: Vital Signs - 24 hr 10/31/22 13:09 10/31/22 15:39 10/31/22 15:40 Temperature 98.7 F 98.9 F Pulse Rate 56 62 68 Respiratory Rate 18 20 Blood Pressure 145/51 H 160/41 H 160/41 H Pulse Oximetry 97 96 Oxygen Delivery Method Room Air Room Air 10/31/22 15:41 10/31/22 15:43 Temperature Pulse Rate 64 60 Respiratory Rate Blood Pressure 162/59 H 141/76 H Pulse Oximetry Oxygen Delivery Method BMI result Body Mass Index 45.7 VITAL SIGNS: Reviewed. GENERAL: Well developed, well nourished, in no acute distress. HEAD: Normocephalic/atraumatic EYES: PERRLA, EOMI EARS: Ext canals without abnormality NOSE: Nares patent bilateral OROPHARYNX: no oral lesions noted, posterior pharynx clear NECK: Supple, no adenopathy LUNGS: Normal breath sounds. No adventitious sounds or accessory muscle use. SpO2<97> CARDIOVASCULAR: Regular rate and rhythm without noted murmurs, no JVD or lower extremity edema. ABDOMEN: Soft, epigastric/mid upper abdomen discomfort on palpation, non- distended with bowel sounds. MUSCULOSKELETAL: No tenderness, deformities, or effusions noted on gross inspection. EXTREMITIES: No cyanosis, clubbing or edema. SKIN: Inspection of the skin reveals no rashes NEUROLOGIC: Alert and oriented x 3. Strength and sensation to light touch were grossly intact x 4. Medications Administered Discontinued Medications Generic Name Dose Route Start Last Admin Trade Name Freq PRN Reason Stop Dose Admin Sodium Chloride 500 mls @ 999 mls/hr 10/31/22 14:45 10/31/22 17:10 Ns IV 10/31/22 15:15 999 mls/hr .Q31M RANDY Administration Iohexol 100 ml 10/31/22 15:13 10/31/22 15:13 Iohexol 350 Mg/Ml 100 Ml Infus..Btl IV 10/31/22 15:14 85 ml ONCE ONE Administration Medical Decision Making Medical Decision Making [facility] Narrative: 1500: 76-year-old female with history and clinical presentation mildly suggestive of intra-abdominal etiology, will proceed with lab work, EKG and abdomen/pelvis CT. Patient is otherwise nonfocal. I reviewed all investigations and lab work appears to be chronically stable, orthostatics positive and patient has received IV fluids. My interpretation is that patient was likely mildly hypovolemic and had a vasovagal syncopal episode, lactic acidosis has resolved in there is no evidence of acute infection. She is otherwise discharged home in stable condition Differential Diagnosis Please see the discussion above Lab Data Please see the discussion above 10/31/22 13:56 10/31/22 13:56 Labs: Lab Results 10/31/22 10/31/22 10/31/22 Range/Units 13:15 13:56 13:56 WBC 9.6 (4.8-10.8) X10*3/uL RBC 4.13 L (4.20-5.50) X10*6/uL Hgb 11.6 L (12.0-16.0) g/dl Hct 34.1 L (37.0-47.0) % MCV 82.6 (80.0-98.0) fL MCH 28.1 (27.0-33.0) pg MCHC 34.0 (31.0-35.0) g/dl RDW 12.8 (11.0-16.0) % Plt Count 253 (160-400) X10*3/uL MPV 10.8 (9.4-12.3) fL Immature Gran % (Auto) 0.4 (0.0-0.4) % Neut % (Auto) 61.2 (45-73) % Lymph % (Auto) 29.0 (20-40) % Bacon % (Auto) 7.0 (2-11) % Eos % (Auto) 2.1 (0-4) % Baso % (Auto) 0.3 (0-2) % Lymph # (Auto) 2.8 (1.2-4.9) X10*3/uL Bacon # (Auto) 0.7 (0.1-1.2) X10*3/uL Eos # (Auto) 0.2 (0.0-0.4) X10*3/uL Baso # (Auto) 0.0 (0.0-0.2) X10*3/uL Abs Immat Gran (auto) 0.04 H (0.00-0.03) X10*3/uL Absolute Neuts (auto) 5.9 (2.0-8.3) x10*3/uL Absolute Nucleated RBC 0.000 (0.0-0.012) X10*3/uL Nucleated RBC % (auto) 0.0 (0.0-0.2) /100WBC PT (10.0-13.1) SEC INR (0.9-1.1) Sodium 141 (135-145) mmol/L Potassium 4.5 (3.3-5.1) mmol/L Chloride 110 H (96-108) mmol/L Carbon Dioxide 23 (22-29) mmol/L Anion Gap 13 (12-20) BUN 33 H (9-16) mg/dL Creatinine 1.16 (0.5-1.4) mg/dL Estim Creat Clear Calc 33.1 Estimated GFR 45 POC Glucose 202 H (60-115) mg/dL Random Glucose 201 H (60-115) mg/dL Lactic Acid (0.5-2.0) mmol/L Lactic Acid F/U @ 2Hr (0.5-2.0) mmol/L Calcium 9.8 (8.4-10.2) mg/dL Total Bilirubin 0.2 (0.0-1.0) mg/dL AST 29 (5-31) U/L ALT 25 (0-31) U/L Alkaline Phosphatase 70 (39-117) U/L Total Protein 6.4 L (6.5-8.0) g/dL Albumin 3.3 L (3.5-5.0) g/dL Urine Color Urine Appearance Urine pH (5.0-9.0) Ur Specific [place] (1.005-1.025) Urine Protein (Neg-Trace) mg/dL Urine Glucose (UA) (Negative) mg/dL Urine Ketones (Negative) mg/dL Urine Blood (Negative) Urine Nitrite (Negative) Ur Leukocyte Esterase (Negative) Urine RBC (0-2) /HPF Urine WBC (0-5) /HPF Ur Squamous Epith Cells (0-2) /HPF Urine Bacteria (None Seen) Hyaline Casts (0-2) /LPF Acetone, Qual Negative (Negative) 10/31/22 10/31/22 10/31/22 Range/Units 13:56 13:56 16:12 WBC (4.8-10.8) X10*3/uL RBC (4.20-5.50) X10*6/uL Hgb (12.0-16.0) g/dl Hct (37.0-47.0) % MCV (80.0-98.0) fL MCH (27.0-33.0) pg MCHC (31.0-35.0) g/dl RDW (11.0-16.0) % Plt Count (160-400) X10*3/uL MPV (9.4-12.3) fL Immature Gran % (Auto) (0.0-0.4) % Neut % (Auto) (45-73) % Lymph % (Auto) (20-40) % Bacon % (Auto) (2-11) % Eos % (Auto) (0-4) % Baso % (Auto) (0-2) % Lymph # (Auto) (1.2-4.9) X10*3/uL Bacon # (Auto) (0.1-1.2) X10*3/uL Eos # (Auto) (0.0-0.4) X10*3/uL Baso # (Auto) (0.0-0.2) X10*3/uL Abs Immat Gran (auto) (0.00-0.03) X10*3/uL Absolute Neuts (auto) (2.0-8.3) x10*3/uL Absolute Nucleated RBC (0.0-0.012) X10*3/uL Nucleated RBC % (auto) (0.0-0.2) /100WBC PT 10.6 (10.0-13.1) SEC INR 0.9 (0.9-1.1) Sodium (135-145) mmol/L Potassium (3.3-5.1) mmol/L Chloride (96-108) mmol/L Carbon Dioxide (22-29) mmol/L Anion Gap (12-20) BUN (9-16) mg/dL Creatinine (0.5-1.4) mg/dL Estim Creat Clear Calc Estimated GFR POC Glucose (60-115) mg/dL Random Glucose (60-115) mg/dL Lactic Acid 2.7 H* (0.5-2.0) mmol/L Lactic Acid F/U @ 2Hr (0.5-2.0) mmol/L Calcium (8.4-10.2) mg/dL Total Bilirubin (0.0-1.0) mg/dL AST (5-31) U/L ALT (0-31) U/L Alkaline Phosphatase (39-117) U/L Total Protein (6.5-8.0) g/dL Albumin (3.5-5.0) g/dL Urine Color Yellow Urine Appearance Clear Urine pH 6.0 (5.0-9.0) Ur Specific [place] 1.025 (1.005-1.025) Urine Protein 300 (3+) H (Neg-Trace) mg/dL Urine Glucose (UA) Negative (Negative) mg/dL Urine Ketones Negative (Negative) mg/dL Urine Blood Negative (Negative) Urine Nitrite Negative (Negative) Ur Leukocyte Esterase Negative (Negative) Urine RBC 0-2 (0-2) /HPF Urine WBC 0-5 (0-5) /HPF Ur Squamous Epith Cells 0-2 (0-2) /HPF Urine Bacteria None Seen (None Seen) Hyaline Casts 3-5 (0-2) /LPF Acetone, Qual (Negative) 10/31/22 Range/Units 16:46 WBC (4.8-10.8) X10*3/uL RBC (4.20-5.50) X10*6/uL Hgb (12.0-16.0) g/dl Hct (37.0-47.0) % MCV (80.0-98.0) fL MCH (27.0-33.0) pg MCHC (31.0-35.0) g/dl RDW (11.0-16.0) % Plt Count (160-400) X10*3/uL MPV (9.4-12.3) fL Immature Gran % (Auto) (0.0-0.4) % Neut % (Auto) (45-73) % Lymph % (Auto) (20-40) % Bacon % (Auto) (2-11) % Eos % (Auto) (0-4) % Baso % (Auto) (0-2) % Lymph # (Auto) (1.2-4.9) X10*3/uL Bacon # (Auto) (0.1-1.2) X10*3/uL Eos # (Auto) (0.0-0.4) X10*3/uL Baso # (Auto) (0.0-0.2) X10*3/uL Abs Immat Gran (auto) (0.00-0.03) X10*3/uL Absolute Neuts (auto) (2.0-8.3) x10*3/uL Absolute Nucleated RBC (0.0-0.012) X10*3/uL Nucleated RBC % (auto) (0.0-0.2) /100WBC PT (10.0-13.1) SEC INR (0.9-1.1) Sodium (135-145) mmol/L Potassium (3.3-5.1) mmol/L Chloride (96-108) mmol/L Carbon Dioxide (22-29) mmol/L Anion Gap (12-20) BUN (9-16) mg/dL Creatinine (0.5-1.4) mg/dL Estim Creat Clear Calc Estimated GFR POC Glucose (60-115) mg/dL Random Glucose (60-115) mg/dL Lactic Acid (0.5-2.0) mmol/L Lactic Acid F/U @ 2Hr 1.4 (0.5-2.0) mmol/L Calcium (8.4-10.2) mg/dL Total Bilirubin (0.0-1.0) mg/dL AST (5-31) U/L ALT (0-31) U/L Alkaline Phosphatase (39-117) U/L Total Protein (6.5-8.0) g/dL Albumin (3.5-5.0) g/dL Urine Color Urine Appearance Urine pH (5.0-9.0) Ur Specific [place] (1.005-1.025) Urine Protein (Neg-Trace) mg/dL Urine Glucose (UA) (Negative) mg/dL Urine Ketones (Negative) mg/dL Urine Blood (Negative) Urine Nitrite (Negative) Ur Leukocyte Esterase (Negative) Urine RBC (0-2) /HPF Urine WBC (0-5) /HPF Ur Squamous Epith Cells (0-2) /HPF Urine Bacteria (None Seen) Hyaline Casts (0-2) /LPF Acetone, Qual (Negative) Independent Interpretation I performed an independent interpretation of an: EKG Interpretation: Normal sinus rhythm, HR-62, no STEMI, WV/QRS/QTC is within normal limits. Radiology Impression Radiologist Impression: My interpretation is in agreement with radiology's impression. External Record Review External record reviewed: Prior outpatient labs Chronic Conditions Patient?s care impacted by: Diabetes and Hypertension Discharge Plan Discharge Clinical Impression: Syncope, vasovagal Patient Disposition: Home, Self-Care Instructions: Syncope (ED) Additional Instructions: 1. Reanudar todos los medicamentos caseros seg?n lo prescrito. 2. Aumente la cantidad de agua que delmer venkatesh los pr?ximos 1 o 2 d?as. 3. Radhika un seguimiento con greenberg proveedor de atenci?n primaria. Regrese a la olinda de emergencias si los s?ntomas empeoran. 1. Resume all home medications as prescribed. 2. Please increase the amount of water that you drink over the next 1-2 days. 3. Please follow-up with your primary care provider. Return to the ER for any worsening symptoms. Prescriptions: No Action (DME) lancets [FreeStyle Lancets] 28 gauge misc See Rx Instructions .ROUTE .MEDSUPPLY Qty: 100 11RF Rx Instructions: use 1 lancet four times a day (DME) diabetic shoes with 3 inserts 8 See Rx Instructions .Route .MEDSUPPLY Qty: 3 0RF Rx Instructions: As directed (DME) blood-glucose meter [FreeStyle Precision En Meter] Mis See Rx Instructions .Route Qty: 1 0RF Rx Instructions: Tests 4 X/day (DME) lancets [FreeStyle Lancets] 28 gauge misc See Rx Instructions .Route Qty: 100 4RF Rx Instructions: tests 4 X/day quetiapine 50 mg tablet 50 mg PO QAM 90 Days Qty: 90 1RF risperidone 1 mg tablet 1 mg PO QAM 90 Days Qty: 90 1RF (DME) pen needle, diabetic [BD Trinidad 2nd Gen Pen Needle] 32 gauge x 5/32 need le See Rx Instructions .MEDSUPPLY Qty: 200 4RF Rx Instructions: 3 times a day (DME) FreeStyle Carola 2 [place] Misc See Rx Instructions .Route Qty: 1 0RF Rx Instructions: As directed cholecalciferol (vitamin D3) [Vitamin D3] 25 mcg (1,000 unit) capsule 25 mcg PO DAILY Qty: 30 11RF dicyclomine 20 mg tablet 20 mg PO QID Qty: 120 5RF (DME) FreeStyle Carola 2 Sensor Kit See Rx Instructions .Route Qty: 2 5RF Rx Instructions: As directed atorvastatin 40 mg tablet 40 mg PO DAILY Qty: 90 3RF magnesium oxide 250 mg magnesium tablet 250 mg PO BID Qty: 180 2RF valsartan 320 mg tablet 320 mg PO DAILY Qty: 90 2RF omeprazole 40 mg capsule,delayed release(DR/EC) 40 mg PO DAILY 90 Days Qty: 90 3RF ferrous sulfate 325 mg (65 mg iron) tablet 325 mg PO DAILY 90 Days Qty: 90 3RF (DME) FreeStyle Precision En Strips Strip See Rx Instructions .ROUTE .COMPLEX Qty: 50 4RF Dose Instruction: TEST BLOOD SUGAR FOUR TIMES DAILY Rx Instructions: TEST BLOOD SUGAR FOUR TIMES DAILY ascorbic acid (vitamin C) [Vitamin C] 500 mg tablet 500 mg PO DAILY Qty: 30 10RF Eliquis 5 mg tablet 5 mg PO BID 90 Days Qty: 180 3RF tamoxifen 20 mg tablet 20 mg PO DAILY Qty: 30 6RF insulin lispro [Humalog KwikPen Insulin] 100 unit/mL insulin pen 30 unit subcut TID 30 Days Qty: 27 11RF Rx Instructions: Hold dinner humalog if sugar less than 200. amlodipine 5 mg tablet 5 mg PO DAILY 90 Days Qty: 90 1RF famotidine 20 mg tablet 20 mg PO BEDTIME Qty: 10 0RF hydroxyzine HCl 25 mg tablet 25 mg PO BID PRN (Reason: itching) 30 Days Qty: 60 2RF ondansetron 4 mg tablet,disintegrating 4 mg PO Q8H PRN (Reason: nausea and vomiting) 7 Days Qty: 21 0RF insulin glargine [Lantus Solostar U-100 Insulin] 100 unit/mL (3 mL) insulin pen 75 unit subcut DAILY 90 Days Qty: 67.5 6RF sucralfate 1 gram tablet 1 g PO BID 30 Days Qty: 60 0RF sennosides [Whit-chitra] 8.6 mg tablet 17.2 mg PO BID 30 Days Qty: 120 6RF (DME) compr.stocking,knee,long,large Misc See Rx Instructions .ROUTE .MEDSUPPLY Qty: 12 0RF Rx Instructions: As directed citalopram 20 mg tablet 20 mg PO DAILY (DME) pen needle, diabetic 32 gauge x 5/32 needle See Rx Instructions subcut .MEDSUPPLY Qty: 50 Rx Instructions: As directed (DME) lancets 33 gauge misc See Rx Instructions Not Applicable QID Qty: 100 Rx Instructions: As directed acetaminophen 500 mg tablet 500 mg PO PRN metoprolol succinate [Toprol XL] 100 mg tablet extended release 24 hr 100 mg PO DAILY Qty: 30 11RF acetaminophen 650 mg tablet extended release 650 mg PO Q8H PRN (Reason: moderate pain) chlorhexidine gluconate 0.12 % mouthwash PO Referrals: Yesi Linares MD [Primary Care Provider] - Print Language: Mongolian
--- NOTE | 2022-10-31 14:58 | ECG_ITS ---
Test Reason : CP Blood Pressure : / mmHG Vent. Rate : 062 BPM Atrial Rate : 062 BPM P-R Int : 160 ms QRS Dur : 090 ms QT Int : 442 ms P-R-T Axes : 035 011 026 degrees QTc Int : 448 ms Poor data quality Normal sinus rhythm with sinus arrhythmia Minimal voltage criteria for LVH, may be normal variant ( [place] product ) Nonspecific T wave abnormality Abnormal ECG When compared with ECG of 08-NOV-2021 13:03, Criteria for Anterior infarct are no longer Present Criteria for Inferior infarct are no longer Present Nonspecific T wave abnormality, worse in Lateral leads Referred By: Chanell Thornton Electronically Signed By:Alonso Goins
[2022-10-31 15:04] LABS: Acetone, serum QL Negative (Negative)
[2022-10-31] MEDS: iohexoL 350 MG/ML 100 ML INFUS..BTL IV (15:13)
[2022-10-31 15:39] VITALS: BP 160/41; PULSE 62; RESP 20; TEMP 37.2; O2SAT 96
[2022-10-31 15:40] VITALS: BP 160/41; PULSE 68
[2022-10-31 15:41] VITALS: BP 162/59; PULSE 64
[2022-10-31 15:43] VITALS: BP 141/76; PULSE 60
[2022-10-31 16:00] LABS: Reflex Lactate? Lactic Acid Added
[2022-10-31 16:25] LABS: Appearance Urine Clear; Color Urine Yellow; Glucose Urine UA Negative (Negative); Leukocyte Esterase Urine Negative (Negative); Nitrite Urine Negative (Negative); Specific Gravity - Urine 1.025 (1.005-1.025); UMIC TRIGGER UACC YES; Urine Blood Negative (Negative); Urine Ketones Negative (Negative); Urine Protein 300 (3+) mg/dL (Neg-Trace)
[2022-10-31 16:27] LABS: Bacteria Urine None Seen (None Seen); RBC Urine 0-2 /HPF (0-2); Squamous Epithelial Cell Urine 0-2 /HPF (0-2); WBC Urine 0-5 /HPF (0-5)
[2022-10-31] MEDS: 0.9 % Sodium Chloride 500 ML 999 ML IV (17:10)
[2022-10-31 17:12] LABS: ~Lactic Acid-LAB USE ONLY 1.4 mmol/L (0.5-2.0)
== END 2022-10-31 17:56 | disposition home or self-care (01) ==
PROVIDERS: Emergency Provider Student in an Organized Health Care Education/Training Program; PCP Internal Medicine
DX: R55 Syncope and collapse (principal); R10.13 Epigastric pain; R07.89 Other chest pain; Z79.899 Other long term (current) drug therapy
CPT/HCPCS: 36415; 74177; 80053; 81001; 82009; 82947; 83605; 85025; 85610; 87040; 93005; 96360; 99284; Q9967

== ENCOUNTER → 2022-11-04 10:15 | Outpatient (BNVA) | payer OTHER, SELFPAY | PROVIDERS: PCP Internal Medicine; Referring Provider Internal Medicine; Visit Provider Nurse Practitioner | DX: K59.04 Chronic idiopathic constipation (principal); K21.9 Gastro-esophageal reflux disease without esophagitis; F03.90 Unspecified dementia, unspecified severity, without behavioral disturbance, psychotic disturbance, mood disturbance, and anxiety; K31.84 Gastroparesis; R11.2 Nausea with vomiting, unspecified | CPT/HCPCS: 99212 ==

== ENCOUNTER → 2022-11-18 07:57 | Outpatient (BNVA) | payer OTHER, SELFPAY | PROVIDERS: PCP Internal Medicine; Visit Provider Nurse Practitioner | DX: K59.04 Chronic idiopathic constipation (principal); K21.9 Gastro-esophageal reflux disease without esophagitis; K31.84 Gastroparesis; R14.0 Abdominal distension (gaseous) | CPT/HCPCS: 99212 ==

== ENCOUNTER 2022-12-15 07:38 | Outpatient (AMB) | payer OTHER, MEDICAID, SELFPAY ==
[2022-12-15 08:09] VITALS: BP 130/78; BMI 32.4
--- NOTE | 2022-12-15 08:09 | A.OFFPC_ITS ---
Vital Signs 12/15/22 08:09 Height 5 ft 3 in Weight 183 lb BMI 32.4 BP 130/78 Blood Pressure Location Rt brachial Position Sitting Intake Visit Reasons: 4 month f/u Intake Note: Patient here for a 4 month follow up DM Log Chipper Operator Required: No Accompanied by: Daughter Allergies JERMAINE Inhibitors [JERMAINE INHIBITORS] Adverse Reaction (Intermediate, Verified 12/15/22 08:34) COUGH lactose [LACTOSE] Adverse Reaction (Intermediate, Verified 12/15/22 08:34) GI DISCOMFORT Medication List - Last Reconciled 12/15/22 by Yesi Perez MD acetaminophen ER 650 mg PO Q8H PRN amlodipine 5 mg PO DAILY 90 days apixaban (Eliquis) 5 mg PO BID 90 days ascorbic acid (vitamin C) (Vitamin C) 500 mg PO DAILY atorvastatin 40 mg PO DAILY blood sugar diagnostic (FreeStyle Precision En Strips) TEST BLOOD SUGAR FOUR TIMES DAILY blood-glucose meter (FreeStyle Precision En Meter) Tests 4 X/day chlorhexidine gluconate 0.12% mL PO cholecalciferol (vitamin D3) (Vitamin D3) 25 mcg PO DAILY citalopram 20 mg PO DAILY compr.stocking,knee,long,large As directed [diabetic shoes with 3 inserts As directed] famotidine (Pepcid) 40 mg PO BEDTIME ferrous sulfate 325 mg PO DAILY 90 days flash glucose scanning reader (FreeStyle Carola 2 [place]) As directed flash glucose sensor (FreeStyle Carola 2 Sensor kit) As directed hydroxyzine HCl 25 mg PO BID PRN 30 days insulin glargine (Lantus Solostar U-100 Insulin) 75 units (0.75 mL) subcut DAILY 90 days insulin lispro (Humalog KwikPen (U-100) Insulin) 30 units (0.3 mL) subcut TID 30 days lancets As directed lancets (TRUEplus Lancets) TEST BLOOD SUGAR FOUR TIMES DAILY linaclotide (Linzess) 145 mcg PO QAM magnesium oxide 250 mg PO BID metoclopramide HCl (Reglan) 5 mg PO .TIDAC metoprolol succinate ER (Toprol XL) 100 mg PO DAILY 90 days omeprazole 40 mg PO DAILY 90 days ondansetron 4 mg PO Q8H PRN 7 days pen needle, diabetic As directed pen needle, diabetic (BD [place] 2nd Gen Pen Needle) 3 times a day quetiapine 50 mg PO QAM 90 days risperidone 1 mg PO QAM 90 days sennosides (Whit-chitra) 17.2 mg (2 x 8.6 mg) PO BID 30 days simethicone 180 mg PO .tidac 30 days tamoxifen 20 mg PO DAILY valsartan 320 mg PO DAILY Tobacco use date assessed: 06/17/22 Fall risk assessment: No Falls in past year Last assessed Fall Risk: 12/15/22 Dental Screening Dental Screen Date: 12/15/22 Did you have a dental visit in the last 12 months?: Yes Did you have a dental problem in the last 6 months where you did not have access to dental care?: No Was dental information given to patient?: Patient has dentist HPI HPI Comments History of Present Illness Details This is a 77-year-old female with paroxysmal atrial fibrillation, hypertension, diabetes mellitus type 2 not controlled on long-term current use of insulin, dementia and schizophrenia that comes accompanied by daughter which is the merchandise appraiser for follow-up on her conditions. On chronic anticoagulation for atrial fibrillation and this is follow by cardiology. Blood pressure stable. A1c elevated and I will increase insulin both short-acting and long- acting insulin. Dementia has been stable with no significant change. Schizophrenia is follow by Psychiatry and has been stable. She also has lumbar degenerative disc disease and abnormal gait that corrects with the use of a cane. She will benefit from having a cane. 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 Mother Diabetes mellitus Heart disease Social History Household Members: Family and None Household Members Other:: Kajal Menendez [phone] Housing: Apartment Alcohol intake: never Patient Tobacco Use Status: Never used Tobacco e-Cigarette/Vaping Use: Never Used Second Hand Smoke Exposure: No service: No Current occupational status: disabled Cognitive needs: Yes Hearing needs: No Vision needs: Yes Questionnaire Thrive Questionnaire Date Thrive assessed: 06/17/22 COURTNEY-7 AMB Questionnaire COURTNEY-7 Date COURTNEY - 7 assessed: 06/17/22 Source: Developed by Drs. David Valdez, Elizabeth Gustafson, Jeremiah Ferro and colleagues, with an educational solo from [employer]. Review of Systems Const All systems reviewed & are unremarkable except as noted in HPI and below Eyes Reports no additional complaints, Denies change in vision and Denies other visual disturbances Card Denies chest pain at rest, Denies chest pain with activity, Denies edema, Denies irregular heart rhythm, Denies claudication, Denies dyspnea, Denies dyspnea on exertion, Denies orthopnea, Denies paroxysmal nocturnal dyspnea and Denies slow heart rate Resp Denies cough, Denies dyspnea and Denies dyspnea on exertion GI Denies abdominal pain, Denies change in bowel habits, Denies excessive flatus, Denies nausea and Denies vomiting Denies urinary incontinence, Denies urinary hesitancy and Denies urinary urgency Musc Denies abnormal gait, Denies atrophy, Denies deformity and Denies limited range of motion Skin/Breast Denies bleeding lesions, Denies changing lesions and Denies rash Neuro Denies abnormal gait and Denies lack of coordination Physical exam (Primary Care) Vital Signs: Last Vital Signs BP 130/78 12/15/22 08:09 BMI result Body Mass Index 32.4 Tobacco/Smoking Status: Tobacco use Status Tobacco use date assessed 06/17/22 12/15/22 08:16 Patient Tobacco Use Status Never used Tobacco 12/15/22 08:16 e-Cigarette/Vaping Use Never Used 12/15/22 08:16 Thrive Assessment: Date of Thrive Assessment Date Thrive assessed 06/17/22 12/15/22 08:16 Eyes General: appearance normal, both eyes and all related structures Eyelids: Yes eyelids normal Conjunctivae: conjunctivae normal Neck Neck: Yes normal visual inspection and Yes supple Resp Effort & Inspection: normal respiratory effort Auscultation: clear to auscultation bilaterally Cardio Jugular venous distension: no JVD Rate: regular rate Rhythm: regular rhythm Heart sounds: S1 normal heart sound present and S2 normal heart sound present Extrem General: Yes full ROM Results AMB Hemoglobin A1c AMB Hemoglobin A1c 11.1 % Last Edit by ANATOLY Espinoza on 12/15/22 08: 20 Results Reviewed Results Reviewed: Laboratory Last Values Hgb A1c (Clinic) 11.1 % (4.0-6.0) H 12/15/22 08:19 Assessment and Plan Assessment & Plan (1) Paroxysmal atrial fibrillation: Code(s): I48.0 - Paroxysmal atrial fibrillation Plan: Continue Eliquis. The goal is heart rate control. Follow-up with Cardiology. (2) Dementia: Code(s): F03.90 - Unspecified dementia, unspecified severity, without behavioral disturbance, psychotic disturbance, mood disturbance, and anxiety Qualifiers: Dementia type: Alzheimer's Alzheimer's disease onset: early-onset Plan: Continue family support. (3) Schizophrenia: Code(s): F20.9 - Schizophrenia, unspecified Qualifiers: Schizophrenia type: paranoid schizophrenia Qualified Code(s): F20.0 - Paranoid schizophrenia Plan: Follow-up with psychiatry. (4) Hypertension: Code(s): I10 - Essential (primary) hypertension Qualifiers: Hypertension type: essential hypertension Qualified Code(s): I10 - Essential (primary) hypertension Plan: Continue valsartan and amlodipine. Blood pressure goal is equal or less than 130/80. (5) Diabetes type 2, uncontrolled: Code(s): E11.65 - Type 2 diabetes mellitus with hyperglycemia Qualifiers: Glycemic state: with hyperglycemia Qualified Code(s): E11.65 - Type 2 diabetes mellitus with hyperglycemia Plan: Increase long-acting insulin and short-acting insulin. A1c goal is equal or less than 7%. (6) Lumbar degenerative disc disease: Code(s): M51.36 - Other intervertebral disc degeneration, lumbar region Plan: Start the use of a cane. Orders: Orders Lipid Panel Today E78.5 - Hyperlipidemia, unspecified Microalbumin, Random (w Creat) Today E11.9 - Type 2 diabetes mellitus without complications Vitamin D 25-OH Total Today E55.9 - Vitamin D deficiency, unspecified Complete Blood Count Auto Diff Today D64.9 - Anemia, unspecified IRON PROFILE Today D64.9 - Anemia, unspecified Thyroid Stimulating Hormone Today E03.9 - Hypothyroidism, unspecified Comprehensive [place]. 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 AMB Hemoglobin A1c Today E11.65 - Type 2 diabetes mellitus with hyperglycemia Medications: New cane As directed 1 ea 0RF M51.36 - Other intervertebral disc degeneration, lumbar region Changed From insulin glargine (Lantus Solostar U-100 Insulin) 75 units (0.75 mL) subcut DAILY 90 days 67.5 mL 6RF E11.65 - Type 2 diabetes mellitus with hyperglycemia To insulin glargine (Lantus Solostar U-100 Insulin) 85 units (0.85 mL) subcut DAILY 90 days 76.5 mL 3RF E11.65 - Type 2 diabetes mellitus with hyperglycemia From insulin lispro (Humalog KwikPen (U-100) Insulin) Hold dinner humalog if sugar less than 200. 30 units (0.3 mL) subcut TID 30 days 27 mL 11RF To insulin lispro (Humalog KwikPen (U-100) Insulin) Hold dinner humalog if sugar less than 200. 35 units (0.35 mL) subcut TID 30 days 31.5 mL 11RF Coding Level of Care Code Est Pt Level 4 (99919) Diagnoses Paroxysmal atrial fibrillation I48.0 Dementia F03.90 Dementia type: Alzheimer's Alzheimer's disease onset: early-onset Schizophrenia F20.0 Schizophrenia type: paranoid schizophrenia Hypertension I10 Hypertension type: essential hypertension Diabetes type 2, uncontrolled Glycemic state: with hyperglycemia Lumbar degenerative disc disease M51.36 Time Spent (min) 24
== END 2022-12-15 08:45 | disposition home or self-care (01) ==
PROVIDERS: Visit Provider Internal Medicine
DX: I10 Essential (primary) hypertension (principal); I48.0 Paroxysmal atrial fibrillation; F20.0 Paranoid schizophrenia; E11.65 Type 2 diabetes mellitus with hyperglycemia; F03.90 Unspecified dementia, unspecified severity, without behavioral disturbance, psychotic disturbance, mood disturbance, and anxiety; M51.36 Other intervertebral disc degeneration, lumbar region
CPT/HCPCS: 83036; 99214

== ENCOUNTER 2023-01-05 08:01 | Outpatient (REF) | payer OTHER, SELFPAY ==
[2023-01-05 08:34] LABS: MANUAL DIFF FLAG NO
[2023-01-05 08:51] LABS: Basophils Percent Auto 0.4 % (0-2); Eosinophils Absolute Auto 0.2 X10*3/uL (0.0-0.4); Eosinophils Percent Auto 1.9 % (0-4); Hematocrit 35.2 % (37.0-47.0); Hemoglobin 11.9 g/dl (12.0-16.0); Imm Gran Abs Auto 0.03 X10*3/uL (0.00-0.03); Imm Gran Pct Auto 0.3 % (0.0-0.4); Lymphocytes Absolute Auto 2.5 X10*3/uL (1.2-4.9); Lymphocytes Percent Auto 25.8 % (20-40); Mean Corpuscular HGB Conc 33.8 g/dl (31.0-35.0); Mean Corpuscular Hemoglobin 27.9 pg (27.0-33.0); Mean Corpuscular Volume 82.6 fL (80.0-98.0); Mean Platelet Volume 10.5 fL (9.4-12.3); Monocytes Absolute Auto 0.5 X10*3/uL (0.1-1.2); Monocytes Percent Auto 5.2 % (2-11); Neutrophils Absolute Auto 6.5 x10*3/uL (2.0-8.3); Neutrophils Percent Auto 66.4 % (45-73); Platelet Count 255 X10*3/uL (160-400); Red Blood Count 4.26 X10*6/uL (4.20-5.50); Red Cell Distribution Width 12.7 % (11.0-16.0); White Blood Count 9.8 X10*3/uL (4.8-10.8)
[2023-01-05 09:55] LABS: Alanine Aminotransferase 22 U/L (0-31); Albumin Level 3.3 g/dL (3.5-5.0); Alkaline Phosphatase 84 U/L (39-117); Anion Gap 13 (12-20); Aspartate Amino Transferase 21 U/L (5-31); Bilirubin Total 0.2 mg/dL (0.0-1.0); Blood Urea Nitrogen 22 mg/dL (9-16); Calcium 9.9 mg/dL (8.4-10.2); Carbon Dioxide 26 mmol/L (22-29); Chloride 107 mmol/L (96-108); Cholesterol 131 mg/dL; Estimated Glomerular Filt Rate 41; Glucose Fasting 204 mg/dL (60-99); HDL Cholesterol 35 mg/dL; Iron 90 mcg/dL (30-160); LDL Cholesterol Calculated 57 mg/dl; Percent Iron Saturation 32 % (15-50); Potassium 4.3 mmol/L (3.3-5.1); Sodium 142 mmol/L (135-145); Total Iron Binding Capacity 283 mcg/dL (228-428); Total Protein 6.9 g/dL (6.5-8.0); Triglycerides 199 mg/dL; Unsaturated Iron Binding 193 ug/dL
[2023-01-05 10:11] LABS: Thyroid Stimulating Hormone 4.08 uIU/mL (0.32-4.0); Vitamin D 25-OH Total 31.8 ng/mL (>30)
[2023-01-05 11:25] LABS: Creatinine Urine 152.47 mg/dL; Microalbum/Creatinine Ratio Ur 1311.7 ug/mg cr; Microalbumin Urine > 2000.0 mg/L
[2023-01-05 13:06] LABS: Folate 11.4 ng/mL (> or = 4.0); Vitamin B12 610 pg/mL (200-900)
== END 2023-01-05 08:02 | disposition home or self-care (01) ==
LOC: HO.LAB 08:01
PROVIDERS: PCP Internal Medicine; Visit Provider Internal Medicine
DX: E55.9 Vitamin D deficiency, unspecified (principal); E03.9 Hypothyroidism, unspecified; E11.65 Type 2 diabetes mellitus with hyperglycemia; E78.5 Hyperlipidemia, unspecified; D64.9 Anemia, unspecified; E53.8 Deficiency of other specified B group vitamins; Z79.4 Long term (current) use of insulin
CPT/HCPCS: 36415; 80053; 80061; 82043; 82306; 82607; 82746; 83540; 84443; 85025

== ENCOUNTER 2023-01-11 08:18 | Outpatient (AMB) | payer OTHER, SELFPAY ==
[2023-01-11 08:23] VITALS: BP 150/64; PULSE 67; BMI 32.8
--- NOTE | 2023-01-11 08:23 | MHC.OFFVIS ---
Intake Vital Signs 01/11/23 08:23 Height 5 ft 3 in Weight 185 lb 6.54 oz BMI 32.8 BP 150/64 H Blood Pressure Location Lt brachial Position Sitting Pulse 67 Pulse Source Pulse Oximeter Intake Visit Reasons: f/u Type 2 DM Intake Note: Patient present today to follow up on Type 2 Diabetes Mellitus. Patient receives DME supplies through: Pharmacy Last Diabetic Eye exam: 2020 Last Podiatry Visit: She doesn't have one Random Glucose:425 mg/dl 8:35 am HgA1C: 11.1 % 12/15/22 Corrections Cadet Required: Yes Corrections Cadet Language: Case Repairer Name: Jordyn nagel amos Accompanied by: Daughter Allergies JERMAINE Inhibitors [JERMAINE INHIBITORS] Adverse Reaction (Intermediate, Verified 01/11/23 08:28) COUGH lactose [LACTOSE] Adverse Reaction (Intermediate, Verified 01/11/23 08:28) GI DISCOMFORT HPI HPI Comments History of Present Illness Details Patient is 76-year-old female with DM type 2 diagnosed 1995 who presents for management of diabetes. , Past medical history: DM2, bipolar disorder, schizophrenia, hypertension, hyperlipidemia, GERD, allergic rhinitis. Left breast cancer, s/p surgery, endometrial and ovarian cancer s/p total hysterectomy Micro and macrovascular complications: nephropathy, neuropathy, Diabetes medications: Lantus 85 units Humalog 35 units Ac Metformin 750mg BID Daughter administers insulin Symptoms reported: denies numbness, tingling, cramping in lower extremities Hypoglycemia: denies Hyperglycemia: denies urinary frequency, + nocturia, + polydypsia Unfortunately pt did not bring Carola java sdet with her Olive Knocker - CDE education: in past Material Handling Equipment Stevedore: none recently Dental exam: , goes every 6 month Ophthalmology evaluation: has appt in near future Daughter states patient is non compliant with diet and eats excessive amount of sugary foods before breakfast and sometimes i does not eat dinner Laboratory Tests complains of nausea and vomiting. Had episode of vomiting today 06/23/21 06/23/21 06/23/21 09:50 09:50 09:50 Creatinine Estimated GFR Hgb A1c (Clinic) Triglycerides Cholesterol LDL Cholesterol Di rect 63 LDL Cholesterol, C alc HDL Cholesterol 25-OH Vitamin D To ramya TSH 3.65 Free T4 1.22 Microalb/Creat Rat io 08/06/21 08/13/21 08/13/21 11:15 09:40 09:49 Creatinine 1.20 Estimated GFR 44 Hgb A1c (Clinic) 8.5 H Triglycerides 116 Cholesterol 117 LDL Cholesterol Di rect LDL Cholesterol, C alc 66 HDL Cholesterol 28 25-OH Vitamin D To ramya 39.2 TSH Free T4 Microalb/Creat Rat io 560.5 PFSH Medical History Bilateral leg pain Depression Diabetes type 2, uncontrolled Diabetic nephropathy associated with type 2 diabetes mellitus Diabetic polyneuropathy associated with type 2 diabetes mellitus Dyslipidemia History of endometrial cancer History of left breast cancer Hypertension Hypothyroidism 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 Mother Diabetes mellitus Heart disease Social History Household Members: Family and None Household Members Other:: Kajal Menendez [phone] Housing: Apartment Alcohol intake: never Patient Tobacco Use Status: Never used Tobacco e-Cigarette/Vaping Use: Never Used Second Hand Smoke Exposure: No service: No Current occupational status: disabled Cognitive needs: Yes Hearing needs: No Vision needs: Yes Physical Exam Vital Signs: BMI result Body Mass Index 32.8 Absence of Cushingoid features. Absence of acromegalic features. Neck exam reveals nl size thyroid about 15 gms. No thyroid nodules palpable. No carotid bruits present. Lungs CTA. Heart S1 S2, Reg R/R. No M/R/ G. Skin exam reveals absence of vitiligo or acanthosis nigricans. Abdominal exam reveals Soft NT/ND with NA BS. no focal tenderness on palpation No organomegaly present. Neck Other: . Extrem Other: Visual exam of foot performed. No ulcerations or open lesions. No onchomycosis, no callouses.Pulses 2 + distally . Sensation and vibration with difficult to test considering patient's dementia Sensation intact to monofilament exam. Vibratory sensation sensed is decreased with 128 Hz tuning fork Assessment & Plan Assessment & Plan (1) Diabetes type 2, uncontrolled: Code(s): E11.65 - Type 2 diabetes mellitus with hyperglycemia Qualifiers: Glycemic state: with hyperglycemia Qualified Code(s): E11.65 - Type 2 diabetes mellitus with hyperglycemia Plan: This 77-year-old female with a history of type 2 diabetes being treated metformin, Trulicity and basal-bolus insulin with fair glycemic control and known microvascular complications namely neuropathy and CKD stage III. The plan is to daughter monitor blood sugars and if point care rises to .400 again, daughter was instructed take mother to emergency room. .Her glycemic control is somewhat limited by dementia and patient does need more assistance in the evening with dietary intake and insulin childcare administrator. Pt was advised to use the Carola and bring the Carola to f/u appt with educator Quality Reporting (2019) Adult ([facility] 138/07/14/68) Smoking risk assessment performed?: Yes Patient Tobacco Use Status: Never used Tobacco Coding Level of Care Code Est Pt Level 4 (84149) Diagnoses Diabetes type 2, uncontrolled E11.65 Glycemic state: with hyperglycemia
[2023-01-11 08:42] LABS: Glucose, Whole Blood 425 mg/dL (60-115)
[2023-01-11 09:09] LABS: Glucose, Whole Blood 391 mg/dL (60-115)
== END 2023-01-11 09:19 | disposition home or self-care (01) ==
PROVIDERS: PCP Internal Medicine; Visit Provider Internal Medicine Endocrinology, Diabetes & Metabolism
DX: E11.65 Type 2 diabetes mellitus with hyperglycemia (principal)
CPT/HCPCS: 99214

== ENCOUNTER → 2023-01-11 08:18 | Outpatient (BNVA) | payer OTHER, MEDICAID, SELFPAY | PROVIDERS: Visit Provider Internal Medicine Endocrinology, Diabetes & Metabolism | DX: E11.65 Type 2 diabetes mellitus with hyperglycemia (principal); Z79.4 Long term (current) use of insulin | CPT/HCPCS: 82947; 99212 ==

== ENCOUNTER 2023-01-18 08:49 | Outpatient (AMB) | payer OTHER, MEDICAID, SELFPAY ==
--- NOTE | 2023-01-18 09:59 | A.OFFVIS_ITS ---
Intake Intake Visit Reasons: DM Nurse Practical Required: No Accompanied by: Daughter Allergies JERMAINE Inhibitors [JERMAINE INHIBITORS] Adverse Reaction (Intermediate, Verified 01/11/23 08:28) COUGH lactose [LACTOSE] Adverse Reaction (Intermediate, Verified 01/11/23 08:28) GI DISCOMFORT HPI Comprehensive Diabetes Asmnt Most Recent Diabetes Results: Microalb/Creat Ratio 1311.7 ug/mg cr 01/05/23 Cholesterol 131 mg/dL 01/05/23 HDL Cholesterol 35 mg/dL 01/05/23 Triglycerides 199 mg/dL 01/05/23 Creatinine 1.27 mg/dL (0.5-1.4) 01/05/23 Blood Urea Nitrogen 22 mg/dL (9-16) H 01/05/23 Sodium 142 mmol/L (135-145) 01/05/23 Potassium 4.3 mmol/L (3.3-5.1) 01/05/23 Chloride 107 mmol/L (96-108) 01/05/23 Carbon Dioxide 26 mmol/L (22-29) 01/05/23 Calcium 9.9 mg/dL (8.4-10.2) 01/05/23 AST 21 U/L (5-31) 01/05/23 ALT 22 U/L (0-31) 01/05/23 Total Protein 6.9 g/dL (6.5-8.0) 01/05/23 Albumin 3.3 g/dL (3.5-5.0) L 01/05/23 [facility] Medical History Bilateral leg pain Depression Diabetes type 2, uncontrolled Diabetic nephropathy associated with type 2 diabetes mellitus Diabetic polyneuropathy associated with type 2 diabetes mellitus Dyslipidemia History of endometrial cancer History of left breast cancer Hypertension Hypothyroidism Iron deficiency anemia 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 Mother Diabetes mellitus Heart disease Social History Household Members: Family and None Household Members Other:: Kajal Menendez [phone] Housing: Apartment Alcohol intake: never Patient Tobacco Use Status: Never used Tobacco e-Cigarette/Vaping Use: Never Used Second Hand Smoke Exposure: No service: No Current occupational status: disabled Cognitive needs: Yes Hearing needs: No Vision needs: Yes Assessment & Plan Assessment & Plan (1) Microalbuminuria due to type 2 diabetes mellitus: Code(s): E11.29 - Type 2 diabetes mellitus with other diabetic kidney complication; R80.9 - Proteinuria, unspecified Plan: Learning objectives: The patient was provided with verbal and written education on the following topics as outlined below. The patient met all learning objectives and was able to verbalize understanding and provide teach back of education topics discussed . The patient was provided with the opportunity to ask questions and all questions were answered. Patient Assessment Assess patient education level/literacy/barriers Patient questions/concerns, Patient's daughter reports that Trulicity has been stopped due to nausea and vomiting. Patient still is experiencing prolonged hyperglycemia throughout the day. Patient's daughter finds it challenging to assist her mother, who also has dementia, with controlling carbohydrate intake. Message sent to Dr. Yen, about reviewing medication list to see if there is diabetes medications that can be added to assist with hyperglycemia Patient's last A1c on 12/15 2022 11.1% Brief overview of Diabetes Management Monitoring blood sugar Following a meal plan Regular exercise Maintaining a healthy weight Taking medication as needed Members of the care team (PCP, RN, MA, RD, CDE, shipyard painter helper) Blood glucose monitoring When/how often to test Target blood sugar ranges Patients CGM information reviewed Reviewed patient's sensor data: Hypoglycemia: ? 0% Hyperglycemia:? 82% Time in Range:? 18% Average glucose for the last 2 weeks? 273 mg/dL Introduction to Nutrition Importance of healthy diet in managing DM Diet is personalized to individual preference Review patient?s regular diet/food preferences Who prepares meals/does food shopping/ Dining out?/ Barriers? How diet effects glucose Eating 3 balanced meals a day with small, healthy snacks between meals Review food groups Carbohydrates: What is a carbohydrate/Which food/food groups are considered carbohydrates Effect of carbohydrates on blood glucose Portion sizes Reading food labels Basic carb counting (if applicable per nursing assessment) Plate method Meal planning Recommendations: Follow plate method, consistent carbs and read nutritional labels. Smart Goal: Patient and her daughter will try and reduce carbohydrate portion to 45 g per meal Educational Materials: The patient was provided with the following written educational materials: Planning Healthy Meals Handout in [place] Patient Response to instructions: Comprehension of Instructions: Fair Readiness to make changes: Contemplation How confident they feel about making changes: poor Patient Instructions: . Mida el nivel de az?car en la marlon seg?n las indicaciones; Ayuno y comida m?s stacey de 2hpp. Observe las tendencias en los resultados. Utilice los resultados y eval?e c?mo los alimentos, la actividad f?gasper y los medicamentos afectan los resultados de az?car en la marlon. Lleve el gluc?metro o CGM a la pr?xima visita. Conocer los medicamentos para la diabetes, greenberg acci?n, los efectos secundarios, la eficacia, la toxicidad, la dosis prescrita, el momento y la frecuencia de administraci?n apropiados, el efecto de las dosis olvidadas y retrasadas y las instrucciones de almacenamiento, viaje y seguridad. Coding Level of Care Code Est Pt Level 1 (41826) Diagnoses Microalbuminuria due to type 2 diabetes mellitus E11.29; R80.9
== END 2023-01-18 10:02 | disposition home or self-care (01) ==
PROVIDERS: PCP Internal Medicine; Visit Provider Registered Nurse Diabetes Educator
DX: E11.29 Type 2 diabetes mellitus with other diabetic kidney complication (principal); R80.9 Proteinuria, unspecified

== ENCOUNTER → 2023-01-18 08:49 | Outpatient (BNVA) | payer OTHER, MEDICAID, SELFPAY | PROVIDERS: PCP Internal Medicine; Visit Provider Registered Nurse Diabetes Educator | DX: E11.29 Type 2 diabetes mellitus with other diabetic kidney complication (principal); R80.9 Proteinuria, unspecified | CPT/HCPCS: 99211 ==

== ENCOUNTER 2023-03-22 11:24 | Outpatient (AMB) | payer OTHER, MEDICAID, SELFPAY ==
--- NOTE | 2023-03-22 12:01 | MHC.AMDMED ---
Intake Intake Visit Reasons: DM Clerk Funeral Detail Required: Yes Clerk Funeral Detail Language: Simulation Analyst Name: Elle [facility] [place] Information Interpreted: non-clinical & clinical Accompanied by: Daughter Allergies JERMAINE Inhibitors [JERMAINE INHIBITORS] Adverse Reaction (Intermediate, Verified 01/11/23 08:28) COUGH lactose [LACTOSE] Adverse Reaction (Intermediate, Verified 01/11/23 08:28) GI DISCOMFORT HPI Comprehensive Diabetes Asmnt Most Recent Diabetes Results: Microalb/Creat Ratio 1311.7 ug/mg cr 01/05/23 Cholesterol 131 mg/dL 01/05/23 HDL Cholesterol 35 mg/dL 01/05/23 Triglycerides 199 mg/dL 01/05/23 Creatinine 1.27 mg/dL (0.5-1.4) 01/05/23 Blood Urea Nitrogen 22 mg/dL (9-16) H 01/05/23 Sodium 142 mmol/L (135-145) 01/05/23 Potassium 4.3 mmol/L (3.3-5.1) 01/05/23 Chloride 107 mmol/L (96-108) 01/05/23 Carbon Dioxide 26 mmol/L (22-29) 01/05/23 Calcium 9.9 mg/dL (8.4-10.2) 01/05/23 AST 21 U/L (5-31) 01/05/23 ALT 22 U/L (0-31) 01/05/23 Total Protein 6.9 g/dL (6.5-8.0) 01/05/23 Albumin 3.3 g/dL (3.5-5.0) L 01/05/23 [facility] Medical History Bilateral leg pain Depression Diabetes type 2, uncontrolled Diabetic nephropathy associated with type 2 diabetes mellitus Diabetic polyneuropathy associated with type 2 diabetes mellitus Dyslipidemia History of endometrial cancer History of left breast cancer Hypertension Hypothyroidism Iron deficiency anemia skilled nursing (current) use of insulin Microalbuminuria due to type 2 diabetes mellitus Nausea and vomiting Obesity (BMI 30-39.9) Paroxysmal atrial fibrillation Schizophrenia Slurred speech Urticaria Surgical History History of tooth extraction Hx of breast surgery Hx of eye surgery Hx of total hysterectomy Family History Father No problems noted. Mother Diabetes mellitus Heart disease Social History Household Members: Family and None Household Members Other:: Kajal Menendez [phone] Housing: Apartment Alcohol intake: never Patient Tobacco Use Status: Never used Tobacco e-Cigarette/Vaping Use: Never Used Second Hand Smoke Exposure: No service: No Current occupational status: disabled Cognitive needs: Yes Hearing needs: No Vision needs: Yes Assessment & Plan Assessment & Plan (1) Microalbuminuria due to type 2 diabetes mellitus: Code(s): E11.29 - Type 2 diabetes mellitus with other diabetic kidney complication; R80.9 - Proteinuria, unspecified Plan: Personal Continuous Glucose Monitor: Patients CGM information reviewed Reviewed patient's sensor data: Hypoglycemia: ? 0% Hyperglycemia:? 72% Time in Range:? 28% Average glucose for the last 2 weeks? 223 mg/dL Patient's daughter reports that her frequently indulges in candy, cakes and other sweets. Discussed with patient long-term complications of hyperglycemia, patient reports she already has retinopathy Discussed the importance of making decisions for low-carbohydrate foods Patient and her daughter given copy of common [facility] food list with carbohydrates Patient also reports that after taking dose of Lantus there is sometimes stinging and leakage from the injection site Message sent to Dr. Yen to switch from Lantus to Toujeo in order to reduce medication volume Also recommended at next visit with Dr. Yen on 04/26/2023 patient should discuss alternative to Trulicity such Mounjaro Patient's daughter asked about an insulin pump to help mother control glucose levels, explained to patient's daughter that in insulin pump may be too complicated for her mother to manage, considering the need for carb counting and troubleshooting insulin pump Patient able to insert sensor independently at home without issue.? Patient Instructions: Inicie el seguimiento diario de Toujeo 85 unidades con la enfermera de Educaci?n sobre Diabetes en 2 meses, en la pr?xima visita con el Dr. Yen, analice la alternativa a Trulicity. Coding Level of Care Code Est Pt Level 1 (56219) Diagnoses Microalbuminuria due to type 2 diabetes mellitus E11.29; R80.9
== END 2023-03-22 12:04 | disposition home or self-care (01) ==
LOC: HO.ENCR 11:24
PROVIDERS: PCP Internal Medicine; Visit Provider Registered Nurse Diabetes Educator
DX: E11.29 Type 2 diabetes mellitus with other diabetic kidney complication (principal); R80.9 Proteinuria, unspecified

== ENCOUNTER → 2023-03-22 11:24 | Outpatient (BNVA) | payer OTHER, MEDICAID, SELFPAY | PROVIDERS: PCP Internal Medicine; Visit Provider Registered Nurse Diabetes Educator | DX: E11.29 Type 2 diabetes mellitus with other diabetic kidney complication (principal); R80.9 Proteinuria, unspecified | CPT/HCPCS: 99211 ==

== ENCOUNTER 2023-04-11 08:34 | Outpatient (AMB) | payer OTHER, MEDICAID, SELFPAY ==
[2023-04-11 08:37] VITALS: BP 120/80; PULSE 90; BMI 33.6
--- NOTE | 2023-04-11 08:37 | A.OFFVIS_ITS ---
Intake Vital Signs 04/11/23 08:37 Height 5 ft 3 in Weight 189 lb 9.561 oz BMI 33.6 BP 120/80 Blood Pressure Location Lt brachial Position Sitting Pulse 90 Intake Visit Reasons: r/s 1 yaer f/u w/ekg dx: paf Intake Note: 1 year follow-up with ekg dx afib c/o heart race Bagman/Woman Required: Yes Bagman/Woman Name: iXomara almonte Commercial Food Instructor: Commercial Food Instructor Present Accompanied by: Daughter Allergies JERMAINE Inhibitors [JERMAINE INHIBITORS] Adverse Reaction (Intermediate, Verified 01/11/23 08:28) COUGH lactose [LACTOSE] Adverse Reaction (Intermediate, Verified 01/11/23 08:28) GI DISCOMFORT Medication List - Last Reconciled 04/11/23 by Mike Fonseca MD acetaminophen ER 650 mg PO Q8H PRN amlodipine 5 mg PO DAILY 90 days apixaban (Eliquis) 5 mg PO BID 90 days ascorbic acid (vitamin C) (Vitamin C) 500 mg PO DAILY atorvastatin 40 mg PO DAILY blood sugar diagnostic (FreeStyle Precision En Strips) TEST BLOOD SUGAR FOUR TIMES DAILY blood-glucose meter (FreeStyle Precision En Meter) Tests 4 X/day cane As directed chlorhexidine gluconate 0.12% mL PO cholecalciferol (vitamin D3) (Vitamin D3) 25 mcg PO DAILY citalopram 20 mg PO DAILY compr.stocking,knee,long,large As directed [diabetic shoes with 3 inserts As directed] famotidine (Pepcid) 40 mg PO BEDTIME ferrous sulfate 325 mg PO DAILY 90 days flash glucose scanning reader (WeGoOutStyle Carola 2 [place]) As directed flash glucose sensor (FreeStyle Carola 2 Sensor kit) As directed hydroxyzine HCl 25 mg PO BID PRN 30 days insulin glargine U-300 conc (Toujeo Max U-300 SoloStar) 85 units (0.2833 mL) subcut DAILY insulin lispro (Humalog KwikPen (U-100) Insulin) 35 units (0.35 mL) subcut TID 30 days lancets As directed lancets (TRUEplus Lancets) TEST BLOOD SUGAR FOUR TIMES DAILY linaclotide (Linzess) 145 mcg PO QAM magnesium oxide 250 mg PO BID metoclopramide HCl (Reglan) 5 mg PO .TIDAC metoprolol succinate ER (Toprol XL) 100 mg PO DAILY 90 days ondansetron 4 mg PO Q8H PRN 7 days pen needle, diabetic As directed pen needle, diabetic (UltiCare Pen Needle) USE THREE TIMES DAILY quetiapine 50 mg PO QAM 90 days risperidone 1 mg PO QAM 90 days sennosides (Whit-chitra) 17.2 mg (2 x 8.6 mg) PO BID 30 days simethicone 180 mg PO TID tamoxifen 20 mg PO DAILY valsartan 320 mg PO DAILY HPI HPI Comments History of Present Illness Details Catherine comes for follow-up, accompanied by her daughter. Patient describes of rapid heart rate including today she said this happens intermittently and occasionally. However today heart shows normal sinus rhythm. She says the symptoms at the same as before. She denies any exertional chest pain or shortness of breath. Denies any heart failure symptoms. No orthopnea, PND. No bleeding issues or neurologic events. Complains of abdominal discomfort, has gastroparesis and being followed by GI/by your team. Daughter says that she does have intermittent this symptoms and gets anxious especially doing doctor's visit. [facility] Medical History Nausea and vomiting Microalbuminuria due to type 2 diabetes mellitus Paroxysmal atrial fibrillation Bilateral leg pain Urticaria Slurred speech History of endometrial cancer Depression Iron deficiency anemia History of left breast cancer Hypothyroidism Schizophrenia Obesity (BMI 30-39.9) intermediate (current) use of insulin Hypertension Dyslipidemia Diabetic nephropathy associated with type 2 diabetes mellitus Diabetic polyneuropathy associated with type 2 diabetes mellitus Diabetes type 2, uncontrolled Surgical History History of tooth extraction Hx of eye surgery Hx of breast surgery Hx of total hysterectomy Family History Father No problems noted. Mother Diabetes mellitus Heart disease Social History Household Members: Family and None Household Members Other:: Kajal Menendez [phone] Housing: Apartment Alcohol intake: never Patient Tobacco Use Status: Never used Tobacco e-Cigarette/Vaping Use: Never Used Second Hand Smoke Exposure: No service: No Current occupational status: disabled Cognitive needs: Yes Hearing needs: No Vision needs: Yes Review of Systems Const Denies chills, Denies fatigue, Denies fever(s), Denies frequent falls, Denies weakness, Denies weight gain and Denies weight loss ENT Denies dizziness Card Denies chest pain, Denies leg edema, Denies lightheadedness, Denies palpitations, Denies dyspnea, Denies dyspnea on exertion, Denies orthopnea and Denies other (loss of consciousness) Resp Denies cough, Denies dyspnea and Denies dyspnea on exertion GI Denies hematochezia and Denies change in stool character Musc Denies abnormal gait, Denies muscle weakness, Denies numbness, Denies radiating pain into limb and Denies tingling Neuro Denies abnormal gait, Denies dizziness, Denies frequent falls, Denies numbness, Denies tingling and Denies weakness Endo Denies fatigue and Denies palpitations Physical Exam Vital Signs: Last Vital Signs Pulse 90 04/11/23 08:37 BP 120/80 04/11/23 08:37 BMI result Body Mass Index 33.6 Const General: cooperative, comfortable, alert and awake Nutritional Appearance: obese centrally obese Orientation/consciousness: patient oriented x3 Limitations: ambulation with cane Neck Neck: Yes trachea midline, Yes supple and Yes no JVD Resp Effort & Inspection: normal respiratory effort Auscultation: clear to auscultation bilaterally Cardio Jugular venous distension: no JVD Palpation: normal PMI Rate: regular rate Rhythm: regular rhythm Heart sounds: S1 normal heart sound present and S2 normal heart sound present GI Auscultation: normal bowel sounds Skin General skin exam: no rashes or lesions noted Neuro General: patient oriented x3 and no focal motor deficits Extrem General: No clubbing, No cyanosis and Yes pedal edema Psych Appearance: grossly normal Office Procedures EKG Details: EKG shows normal sinus rhythm with poor R-wave progression most likely due to lead placement with diffuse ST T wave changes which has suggestive of repolarization abnormality [id number], Complete Assessment & Plan Assessment & Plan (1) Paroxysmal atrial fibrillation: Code(s): I48.0 - Paroxysmal atrial fibrillation Plan: Paroxysmal atrial fibrillation with symptoms of palpitation include on today's visit an EKG shows sinus rhythm. Symptoms are similar to what she gets all the time. The symptoms are intermittent and not life-limiting. Most likely related to anxiety. Continue metoprolol therapy. Continue full oral anticoagulation with Eliquis 5 mg b.i.d.. Quarterly renal function test should be pursued. Will pursue rhythm control approach if she has recurrent atrial fibrillation episodes may require antiarrhythmic drug therapy. (2) Hypertension: Code(s): I10 - Essential (primary) hypertension Qualifiers: Hypertension type: essential hypertension Qualified Code(s): I10 - Essential (primary) hypertension Plan: Hypertension which is currently well optimized advised to monitor blood pressure at home maintain a log. Goal blood pressure less than 130/84. He has multiple other significant risk factors for coronary disease. Diabetes being managed by Endocrine Service. Goal hemoglobin A1c less than 7%. Goal LDL should be less than 70 mg/dL. Will follow up in the clinic in 1 year's time, sooner p.r.n.. Thank you for allowing me to partake in her care Quality Reporting (2019) Adult ([facility] 13807/14/68) Smoking risk assessment performed?: Yes Patient Tobacco Use Status: Never used Tobacco Coding Level of Care Code Est Pt Level 4 (90627) Diagnoses Paroxysmal atrial fibrillation I48.0 Essential hypertension I10 Hypertension type: essential hypertension CPT Codes EKG - CPT: 49090-[id number], Complete ([id number])
== END 2023-04-11 09:01 | disposition home or self-care (01) ==
PROVIDERS: PCP Internal Medicine; Visit Provider Internal Medicine Cardiovascular Disease
DX: I48.0 Paroxysmal atrial fibrillation (principal); I10 Essential (primary) hypertension
CPT/HCPCS: 93010; 99214

== ENCOUNTER → 2023-04-11 08:34 | Outpatient (BNVA) | payer OTHER, MEDICAID, SELFPAY | PROVIDERS: PCP Internal Medicine; Visit Provider Internal Medicine Cardiovascular Disease | DX: I48.0 Paroxysmal atrial fibrillation (principal); I10 Essential (primary) hypertension | CPT/HCPCS: 93005; 99212 ==

== ENCOUNTER 2023-04-28 09:36 | Outpatient (AMB) | payer OTHER, SELFPAY ==
[2023-04-28 09:40] VITALS: BP 130/68; BMI 33.7
--- NOTE | 2023-04-28 09:40 | MHC.PC.OV ---
Vital Signs 04/28/23 09:40 Height 5 ft 3 in Weight 190 lb BMI 33.7 BP 130/68 Blood Pressure Location Rt brachial Position Sitting Intake Visit Reasons: dm Intake Note: Patient here for a follow up DM Collection Support Specialist Required: No Accompanied by: daughter/ SENIOR MEDICAL BILLING SPECIALIST Allergies JERMAINE Inhibitors [JERMAINE INHIBITORS] Adverse Reaction (Intermediate, Verified 04/28/23 09:51) COUGH lactose [LACTOSE] Adverse Reaction (Intermediate, Verified 04/28/23 09:51) GI DISCOMFORT Medication List - Last Reconciled 04/28/23 by Yesi Perez MD acetaminophen ER 650 mg PO Q8H PRN amlodipine 5 mg PO DAILY 90 days apixaban (Eliquis) 5 mg PO BID 90 days ascorbic acid (vitamin C) (Vitamin C) 500 mg PO DAILY atorvastatin 40 mg PO DAILY blood sugar diagnostic (FreeStyle Precision En Strips) TEST BLOOD SUGAR FOUR TIMES DAILY blood-glucose meter (FreeStyle Precision En Meter) Tests 4 X/day cane As directed chlorhexidine gluconate 0.12% mL PO cholecalciferol (vitamin D3) (Vitamin D3) 25 mcg PO DAILY citalopram 20 mg PO DAILY compr.stocking,knee,long,large As directed [diabetic shoes with 3 inserts As directed] famotidine (Pepcid) 40 mg PO BEDTIME ferrous sulfate 325 mg PO DAILY 90 days flash glucose scanning reader (FreeStyle Carola 2 [place]) As directed flash glucose sensor (FreeStyle Carola 2 Sensor kit) USE DIRECTED. CHANGE EVERY 2 WEEKS hydroxyzine HCl 25 mg PO BID PRN 30 days insulin glargine U-300 conc (Toujeo Max U-300 SoloStar) 85 units (0.2833 mL) subcut DAILY insulin lispro (Humalog KwikPen (U-100) Insulin) 35 units (0.35 mL) subcut TID 30 days lancets As directed lancets (TRUEplus Lancets) TEST BLOOD SUGAR FOUR TIMES DAILY linaclotide (Linzess) 145 mcg PO QAM magnesium oxide 250 mg PO BID metoclopramide HCl (Reglan) 5 mg PO .TIDAC metoprolol succinate ER (Toprol XL) 100 mg PO DAILY 90 days ondansetron 4 mg PO Q8H PRN 7 days pen needle, diabetic As directed pen needle, diabetic (UltiCare Pen Needle) USE THREE TIMES DAILY quetiapine 50 mg PO QAM 90 days risperidone 1 mg PO QAM 90 days sennosides (Whit-chitra) 17.2 mg (2 x 8.6 mg) PO BID 30 days simethicone 180 mg PO TID tamoxifen 20 mg PO DAILY valsartan 320 mg PO DAILY Tobacco use date assessed: 06/17/22 Fall risk assessment: No Falls in past year Last assessed Fall Risk: 04/28/23 Dental Screening Dental Screen Date: 04/28/23 Did you have a dental visit in the last 12 months?: Yes Did you have a dental problem in the last 6 months where you did not have access to dental care?: No Was dental information given to patient?: Patient has dentist HPI HPI Comments History of Present Illness Details This is a 77-year-old female with paroxysmal atrial fibrillation, diabetes mellitus type 2 on long-term current use of insulin, microalbuminuria and schizophrenia that comes today accompanied by daughter which is the newswriter for follow-up on her conditions. On Eliquis for atrial fibrillation. Follow by cardiology. A1c elevated and I will increase insulin. Follow by Endocrinology. Has microalbuminuria and will be referred to Nephrology again. Schizophrenia stable with medications and this is follow by Psychiatry. Walks with a cane for gait stability. No chest pain or shortness of breath. 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 Mother Diabetes mellitus Heart disease Social History Household Members: Family and None Household Members Other:: Kajal Menendez [phone] Housing: Apartment Alcohol intake: never Patient Tobacco Use Status: Never used Tobacco e-Cigarette/Vaping Use: Never Used Second Hand Smoke Exposure: No service: No Current occupational status: disabled Cognitive needs: Yes Hearing needs: No Vision needs: Yes Questionnaire Thrive Questionnaire Date Thrive assessed: 06/17/22 COURTNEY-7 AMB Questionnaire COURTNEY-7 Date COURTNEY - 7 assessed: 06/17/22 Source: Developed by Drs. David Valdez, Elizabeth Gustafson, Jeremiah Ferro and colleagues, with an educational solo from [employer]. Review of Systems Const All systems reviewed & are unremarkable except as noted in HPI and below Eyes Reports no additional complaints, Denies change in vision and Denies other visual disturbances Card Denies chest pain at rest, Denies chest pain with activity, Denies edema, Denies irregular heart rhythm, Denies claudication, Denies dyspnea, Denies dyspnea on exertion, Denies orthopnea, Denies paroxysmal nocturnal dyspnea and Denies slow heart rate Resp Denies cough, Denies dyspnea and Denies dyspnea on exertion GI Denies abdominal pain, Denies change in bowel habits, Denies excessive flatus, Denies nausea and Denies vomiting Denies urinary incontinence, Denies urinary hesitancy and Denies urinary urgency Musc Denies abnormal gait, Denies atrophy, Denies deformity and Denies limited range of motion Skin/Breast Denies bleeding lesions, Denies changing lesions and Denies rash Neuro Denies abnormal gait and Denies lack of coordination Physical exam (Primary Care) Vital Signs: Last Vital Signs BP 130/68 04/28/23 09:40 BMI result Body Mass Index 33.7 Tobacco/Smoking Status: Tobacco use Status Tobacco use date assessed 06/17/22 04/28/23 09:43 Patient Tobacco Use Status Never used Tobacco 04/28/23 09:43 e-Cigarette/Vaping Use Never Used 04/28/23 09:43 Thrive Assessment: Date of Thrive Assessment Date Thrive assessed 06/17/22 04/28/23 09:43 Const Limitations: ambulation with cane Eyes General: appearance normal, both eyes and all related structures Eyelids: Yes eyelids normal Conjunctivae: conjunctivae normal Neck Neck: Yes normal visual inspection and Yes supple Resp Effort & Inspection: normal respiratory effort Auscultation: clear to auscultation bilaterally Cardio Jugular venous distension: no JVD Rate: regular rate Rhythm: regular rhythm Heart sounds: S1 normal heart sound present and S2 normal heart sound present Extrem General: Yes full ROM Office Procedures Flu Questionnaire Does the patient have a severe egg allergy?: No Results AMB Hemoglobin A1c AMB Hemoglobin A1c 9.7 % Last Edit by ANATOLY Espinoza on 04/28/23 09:47 Immunizations flu vacc [id number] 6mos up(PF) 60 mcg(15 mcgx4)/0.5 mL IM syringe Performing Provider: Yesi Perez MD [facility] Documented (not given) by: ANATOLY Espinoza on 04/28/23 09:44 Reason Not Given: Patient Refused Results Reviewed Results Reviewed: Laboratory Last Values Hgb A1c (Clinic) 9.7 % (4.0-6.0) H 04/28/23 09:44 Assessment and Plan Assessment & Plan (1) Paroxysmal atrial fibrillation: Code(s): I48.0 - Paroxysmal atrial fibrillation Plan: Continue Eliquis. Follow-up with Cardiology. (2) Microalbuminuria due to type 2 diabetes mellitus: Code(s): E11.29 - Type 2 diabetes mellitus with other diabetic kidney complication; R80.9 - Proteinuria, unspecified Plan: Referred to Nephrology. Avoid NSAIDs. (3) Schizophrenia: Code(s): F20.9 - Schizophrenia, unspecified Qualifiers: Schizophrenia type: paranoid schizophrenia Qualified Code(s): F20.0 - Paranoid schizophrenia Plan: Continue Seroquel. Follow-up with psychiatry. (4) Diabetes type 2, uncontrolled: Code(s): E11.65 - Type 2 diabetes mellitus with hyperglycemia Qualifiers: Glycemic state: with hyperglycemia Qualified Code(s): E11.65 - Type 2 diabetes mellitus with hyperglycemia Plan: Increase insulin. A1c goal is equal or less than 7%. Follow-up with endocrinology. Orders: Orders AMB Hemoglobin A1c Today E11.65 - Type 2 diabetes mellitus with hyperglycemia Influenza [id number] Immunization Today Z23 - Encounter for immunization Thyroid Stimulating Hormone Today R79.89 - Other specified abnormal findings of blood chemistry Comprehensive Met. Panel Today I48.0 - Paroxysmal atrial fibrillation Referrals Nephrology Referral E11.29 - Type 2 diabetes mellitus with other diabetic kidney complication, R80.9 - Proteinuria, unspecified Medications: Changed From insulin glargine U-300 conc (Toujeo Max U-300 SoloStar) 85 units (0.2833 mL) subcut DAILY 6 mL 4RF To insulin glargine U-300 conc (Toujeo Max U-300 SoloStar) 87 units (0.29 mL) subcut DAILY 30 days 8.7 mL 4RF Coding Level of Care Code Est Pt Level 4 (79609) Diagnoses Paroxysmal atrial fibrillation I48.0 Microalbuminuria due to type 2 diabetes mellitus E11.29; R80.9 Paranoid schizophrenia F20.0 Schizophrenia type: paranoid schizophrenia Uncontrolled type 2 diabetes mellitus with hyperglycemia E11.65 Glycemic state: with hyperglycemia Time Spent (min) 22
== END 2023-04-28 10:01 | disposition home or self-care (01) ==
PROVIDERS: PCP Internal Medicine; Visit Provider Internal Medicine
DX: I48.0 Paroxysmal atrial fibrillation (principal); E11.29 Type 2 diabetes mellitus with other diabetic kidney complication; F20.0 Paranoid schizophrenia; E11.65 Type 2 diabetes mellitus with hyperglycemia; R80.9 Proteinuria, unspecified
CPT/HCPCS: 83036; 99214

== ENCOUNTER 2023-04-28 10:13 | Outpatient (REF) | payer OTHER, SELFPAY ==
[2023-04-28 12:02] LABS: Alanine Aminotransferase 24 U/L (0-31); Albumin Level 3.4 g/dL (3.5-5.0); Alkaline Phosphatase 80 U/L (39-117); Anion Gap 13 (12-20); Aspartate Amino Transferase 25 U/L (5-31); Bilirubin Total 0.2 mg/dL (0.0-1.0); Blood Urea Nitrogen 31 mg/dL (9-16); Calcium 9.5 mg/dL (8.4-10.2); Carbon Dioxide 26 mmol/L (22-29); Chloride 106 mmol/L (96-108); Estimated Glomerular Filt Rate 38; Glucose Random 189 mg/dL (60-115); Potassium 4.7 mmol/L (3.3-5.1); Sodium 140 mmol/L (135-145)
[2023-04-28 12:06] LABS: Thyroid Stimulating Hormone 4.39 uIU/mL (0.32-4.0)
== END 2023-04-28 10:14 | disposition home or self-care (01) ==
LOC: HO.LAB 10:13
PROVIDERS: PCP Internal Medicine; Visit Provider Internal Medicine
DX: R79.89 Other specified abnormal findings of blood chemistry (principal); I48.0 Paroxysmal atrial fibrillation; E11.65 Type 2 diabetes mellitus with hyperglycemia
CPT/HCPCS: 36415; 80053; 84443

== ENCOUNTER 2023-05-01 12:59 | Emergency (ER) | payer OTHER, SELFPAY ==
[2023-05-01] VITALS (8 sets, daily range): BP systolic 142–167; BP diastolic 55–83; PULSE 62–71; RESP 16–22; TEMP 36.8; O2SAT 70–100; BMI 37.5
--- NOTE | ~2023-05-01 | CT_ITS ---
EXAMINATION: CT HEAD WITHOUT CONTRAST CLINICAL INFORMATION: Syncope COMPARISON: None available. TECHNIQUE: Contiguous axial imaging was performed from the skull base to vertex without intravenous administration of contrast. This CT examination was performed using dose optimization techniques as appropriate, variously including the following: *Automated exposure control *Adjustment of mA and/or kV according to patient size (this includes techniques or standardized protocols for targeted exams where dose is matched to indication/reason for exam; i.e. extremities or head) *Use of iterative reconstruction technique DLP: 834 mGy-cm FINDINGS: There is no acute intra-axial, extra-axial bleed, masses or midline shift. There is no acute infarction in evolution. The bolanos to white matter differentiation is maintained normal. The lateral ventricles are symmetrical in size and configuration without enlargement. There is diffuse periventricular hypodensity suggestive chronic small vessel ischemic changes. Bone windows reveal no calvarial fracture. There is no scalp soft tissue abnormality. Bilateral paranasal sinuses and mastoid air cells are well-aerated. There is normal symmetry of bilateral orbits and optic globe. CT/CT head/brain wo IV con IMPRESSION: 1. No acute intracranial process seen. 2. Age-related cerebral volume loss with chronic small vessel ischemic changes.
--- NOTE | ~2023-05-01 | XR_ITS ---
EXAMINATION: XR CHEST CLINICAL INFORMATION: Syncope. COMPARISON: Chest x-ray 11/08/2021 TECHNIQUE: Frontal view of the chest was obtained. FINDINGS: Telemetry leads overlie the chest. The cardiomediastinal silhouette is stable. No vascular congestion or edema. Lungs are mildly hypoexpanded. Calcified granuloma in the left midlung. No consolidation or effusion. XR/XR chest 1V IMPRESSION: No acute cardiopulmonary findings.
--- NOTE | 2023-05-01 13:17 | ED.GENADULT ---
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 Patient states that she was at [employer] when she had epigastric pain, nausea, and then passed out. Patient states that this has happened before and they don't ever find anything on her medical work up. Patient denies any current dizziness, lightheadedness, abdominal pain, nausea, vomiting, fever, chills, blurry vision, double vision, loss of vision, chest pain, difficulty breathing, shortness of breath, back pain, night sweats, pain with urination, increased urinary frequency, increased urinary urgency, blood in her urine or stool, bowel incontinence, bladder incontinence, bowel retention, bladder retention, or any other complaints at this time. Onset (ago): minute(s) Relieving factors: none Exacerbating factors: none Associated symptoms: denies other symptoms Treatments prior to arrival: none Related Data Home Medications Medication Instructions Recorded Confirmed citalopram 20 mg tablet 20 mg PO DAILY 04/09/20 04/28/23 lancets 33 gauge #100 ea 04/09/20 04/28/23 pen needle, diabetic 32 gauge x #50 ea 04/09/20 04/28/23 acetaminophen 650 mg 650 mg PO Q8H PRN moderate pain 09/15/22 04/28/23 tablet,extended release chlorhexidine gluconate 0.12 % ml PO 09/15/22 04/28/23 mouthwash Previous Rx's Medication Instructions Recorded sennosides 8.6 mg tablet (Whit-chitra) 17.2 mg (2 x 8.6 mg) PO BID 06/18/20 constipation 30 days #120 tabs hydroxyzine HCl 25 mg tablet 25 mg PO BID PRN itching 30 days 08/12/20 #60 tabs compr.stocking,knee,long,large #12 ea 10/16/20 diabetic shoes with 3 inserts #3 ea 12/31/20 blood-glucose meter (FreeStyle #1 ea 12/11/21 Precision En Meter) quetiapine 50 mg tablet 50 mg PO QAM 90 days #90 tabs 12/21/21 risperidone 1 mg tablet 1 mg PO QAM 90 days #90 tabs 12/21/21 atorvastatin 40 mg tablet 40 mg PO DAILY #90 tabs 06/11/22 ferrous sulfate 325 mg (65 mg 325 mg PO DAILY 90 days #90 tabs 07/07/22 iron) tablet ondansetron 4 mg disintegrating 4 mg PO Q8H PRN nausea and 08/10/22 tablet vomiting 7 days #21 tabs ascorbic acid (vitamin C) 500 mg 500 mg PO DAILY #30 tabs 08/16/22 tablet (Vitamin C) apixaban 5 mg tablet (Eliquis) 5 mg PO BID 90 days #180 tabs 08/26/22 tamoxifen 20 mg tablet 20 mg PO DAILY #30 tabs 09/15/22 famotidine 40 mg tablet (Pepcid) 40 mg PO BEDTIME #30 tabs 11/04/22 metoclopramide HCl 5 mg tablet 5 mg PO .TIDAC #90 tabs 11/04/22 (Reglan) metoprolol succinate 100 mg 100 mg PO DAILY 90 days #90 tabs 11/17/22 tablet,extended release 24 hr (Toprol XL) lancets 33 gauge (TRUEplus Lancets) ##100 11/22/22 flash glucose scanning reader #1 ea 12/06/22 (FreeStyle Carola 2 [place]) cane #1 ea 12/15/22 insulin lispro 100 unit/mL 35 unit (0.35 mL) subcut TID 30 12/15/22 subcutaneous pen (Humalog Kwik days #31.5 mL (U-100) Insulin) pen needle, diabetic 32 gauge x #200 ea 03/01/23 (UltiCare Pen Needle) linaclotide 145 mcg capsule 145 mcg PO QAM #30 caps 03/24/23 (Linzess) simethicone 180 mg capsule 180 mg PO TID #90 caps 03/24/23 cholecalciferol (vitamin D3) 25 25 mcg PO DAILY #30 caps 03/25/23 mcg (1,000 unit) capsule (Vitamin D3) amlodipine 5 mg tablet 5 mg PO DAILY 90 days #90 tabs 04/03/23 magnesium oxide 250 mg PO BID #180 tabs 04/03/23 valsartan 320 mg tablet 320 mg PO DAILY #90 tabs 04/03/23 blood sugar diagnostic (FreeStyle #100 strips 04/08/23 Precision En Strips) flash glucose sensor (FreeStyle #2 kits 04/12/23 Carola 2 Sensor kit) insulin glargine U-300 conc 300 87 unit (0.29 mL) subcut DAILY 30 04/28/23 unit/mL (3 mL) subcutaneous pen days #8.7 mL (Toujeo Max U-300 SoloStar) Allergies Allergy/AdvReac Type Severity Reaction Status Date / Time JERMAINE Inhibitors AdvReac Intermediate COUGH Verified 04/28/23 09:51 [JERMAINE INHIBITORS] lactose [LACTOSE] AdvReac Intermediate GI Verified 04/28/23 09:51 DISCOMFORT Review of Systems Constitutional: Constitutional: Reports no additional constitutional complaints, Denies chills, Denies fever(s) and Denies night sweats Eyes: Eyes: Reports no additional eye complaints, Denies blurry vision, Denies change in vision, Denies diplopia, Denies eye discharge, Denies loss of vision and Denies eye pain ENT: Denies dizziness Cardiovascular: Cardiovascular: Reports no additional cardiovascular complaints, Denies chest pain, Reports syncope, Denies lightheadedness, Denies Loss of Consciousness and Denies dyspnea Respiratory: Respiratory: Reports no additional respiratory complaints and Denies dyspnea Gastrointestinal: Gastrointestinal: Reports no additional gastrointestinal complaints, Denies abdominal pain, Denies melena, Denies hematochezia, Denies change in bowel habits and Denies change in stool character Genitourinary: Genitourinary: Denies hematuria, Denies urinary frequency, Denies dysuria, Denies urinary incontinence, Denies urinary hesitancy and Denies urinary urgency Musculoskeletal: Musculoskeletal: Reports no additional musculoskeletal complaints, Denies numbness and Denies tingling Neurologic: Denies dizziness, Reports syncope, Denies loss of vision, Denies numbness and Denies tingling Psychiatric: Psychiatric: Reports no additional psychiatric complaints Endocrine: Endocrine: Reports no additional endocrine complaints Hematologic/Lymphatic: Hematologic/Lymphatic: Reports no additional hematologic/lymphatic complaints Allergic/Immunologic: Allergic/Immunologic: Reports no additional allergic/immunologic complaints PMFSH Past Medical History Attestation statement: The following information was validated with the patient. 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 Mother Diabetes mellitus Heart disease Social History Social History Household Members: Family and None Household Members Other:: Kajal Menendez [phone] Housing: Apartment Alcohol intake: never Patient Tobacco Use Status: Never used Tobacco e-Cigarette/Vaping Use: Never Used Second Hand Smoke Exposure: No Advance Directives: No Advance Directives Information Provided: Yes service: No Current occupational status: disabled Cognitive needs: Yes Hearing needs: No Vision needs: Yes Physical Exam ED Vital Signs: Vital Signs - 24 hr 05/01/23 13:20 Temperature 98.2 F Pulse Rate 66 Respiratory Rate 22 H Blood Pressure 151/58 H Pulse Oximetry 98 Oxygen Delivery Method Room Air BMI result Body Mass Index 37.5 Const General: cooperative, no acute distress, alert and awake Nutritional Appearance: well nourished Orientation/consciousness: patient oriented x3 Limitations: no limitations HENMT Head: Yes normal to inspection and Yes atraumatic Ears: hearing grossly normal bilaterally and external ears normal General nose exam: Normal external nose present, no nasal discharge noted and no epistaxis Face and sinus: Yes normal facial exam, No abrasion and No laceration Mouth: Normal oral and palatal mucosa present, no drooling and no muffled voice Eyes General: appearance normal, both eyes and all related structures Periorbital: periorbital findings normal Eyelids: Yes eyelids normal Conjunctivae: conjunctivae normal Pupils: Equal, round and reactive pupils present EOM: EOMs intact bilaterally Neck Neck: Yes normal visual inspection, Yes full ROM and Yes no lymphadenopathy Chest Chest palpation & inspection: normal inspection of the chest Resp Effort & Inspection: normal respiratory effort and able to speak in complete sentences Auscultation: clear to auscultation bilaterally Cardio Rate: regular rate Rhythm: regular rhythm GI Inspection: Yes normal to inspection Palpation (GI): Soft to palpation, not firm, nontender and no guarding Neuro General: patient oriented x3 and moves all extremities Cranial nerves: Yes Equal, round and reactive pupils present Cognition (Neuro): normal cognition Motor exam (neuro): 5/5 motor strength present throughout Sensory Exam: Normal double simultaneous stimulation for sensation Coordination: [id number] test normal Extrem General: Yes normal to inspection, Yes full ROM and Yes capillary refill normal Psych Appearance: grossly normal Mental Status: mental status grossly normal Affect: normal affect Attitude: cooperative Thought process: Normal thought process present Thought content: Normal thought content present Insight: Good insight present (Psych) Medications Administered Discontinued Medications Generic Name Dose Route Start Last Admin Trade Name Freq PRN Reason Stop Dose Admin Sodium Chloride 1,000 mls @ 999 mls/hr 05/01/23 14:30 05/01/23 15:13 Ns IV 05/01/23 15:30 999 mls/hr .Q1H1M RANDY Administration Medical Decision Making Medical Decision Making [facility] Narrative: Patient is a 77 year old assigned female at with a history of DM, dementia, and atrial fib presenting to the emergency department today after a syncopal episode. Patient's physical exam was unremarkable. Patient's blood work showed a very mildly elevated CR of 1.49 for which she was given 1L of fluids. Patient's urine is pending at this time. Patient's EKG was unremarkable. Patient's chest x-ray and head CT showed no acute process. I explained my physical exam findings as well as all test results to the patient. I answered all questions asked by the patient. Patient's disposition pending urine result and re-assessment. Patient signed out to evening RADHA. Differential Diagnosis Differential Diagnoses: The differential diagnosis associated with the presentation includes Syncope Vasovagal syncope Dehydration CASS UTI Admission/Observation Consideration of admission/observation: Escalation of care including admission/observation considered Disposition of this patient will be determined after urine results and additional re-evaluation. Lab Data [facility] Lab Attestation statement: I reviewed the patient's lab results. My interpretation of these results are in the [facility] Rationale portion of this note. 05/01/23 13:57 05/01/23 13:57 Labs: Lab Results 05/01/23 Range/Units 13:57 WBC 9.7 (4.8-10.8) X10*3/uL RBC 4.25 (4.20-5.50) X10*6/uL Hgb 11.8 L (12.0-16.0) g/dl Hct 35.5 L (37.0-47.0) % MCV 83.5 (80.0-98.0) fL MCH 27.8 (27.0-33.0) pg MCHC 33.2 (31.0-35.0) g/dl RDW 12.9 (11.0-16.0) % Plt Count 243 (160-400) X10*3/uL MPV 10.8 (9.4-12.3) fL Immature Gran % (Auto) 0.3 (0.0-0.4) % Neut % (Auto) 70.1 (45-73) % Lymph % (Auto) 20.9 (20-40) % Lewis % (Auto) 6.9 (2-11) % Eos % (Auto) 1.6 (0-4) % Baso % (Auto) 0.2 (0-2) % Lymph # (Auto) 2.0 (1.2-4.9) X10*3/uL Lewis # (Auto) 0.7 (0.1-1.2) X10*3/uL Eos # (Auto) 0.2 (0.0-0.4) X10*3/uL Baso # (Auto) 0.0 (0.0-0.2) X10*3/uL Abs Immat Gran (auto) 0.03 (0.00-0.03) X10*3/uL Absolute Neuts (auto) 6.8 (2.0-8.3) x10*3/uL Absolute Nucleated RBC 0.000 (0.0-0.012) X10*3/uL Nucleated RBC % (auto) 0.0 (0.0-0.2) /100WBC PT 13.7 H (11.1-13.3) SEC INR 1.1 (0.9-1.1) APTT 35.9 (26.0-36.4) SEC Sodium 138 (135-145) mmol/L Potassium 4.7 (3.3-5.1) mmol/L Chloride 109 H (96-108) mmol/L Carbon Dioxide 21 L (22-29) mmol/L Anion Gap 13 (12-20) BUN 30 H (9-16) mg/dL Creatinine 1.49 H (0.5-1.4) mg/dL Estim Creat Clear Calc 33.5 Estimated GFR 34 Random Glucose 214 H (60-115) mg/dL Calcium 9.7 (8.4-10.2) mg/dL Magnesium 2.1 (1.6-2.6) mg/dL Total Bilirubin 0.2 (0.0-1.0) mg/dL AST 30 (5-31) U/L ALT 28 (0-31) U/L Alkaline Phosphatase 81 (39-117) U/L Troponin I High Sens 3.5 (<3.5-17.0) ng/L Total Protein 6.9 (6.5-8.0) g/dL Albumin 3.3 L (3.5-5.0) g/dL Influenza Type A (PCR) NEGATIVE (Negative) Influenza Type B (PCR) NEGATIVE (Negative) RSV RNA Qual (PCR) NEGATIVE (Negative) SARS-CoV-2 RNA (RT-PCR) NEGATIVE (Negative) Independent Interpretation I performed an independent interpretation of an: EKG and CT Scan Interpretation: My interpretation is in agreement with the radiologist's impression of these imaging studies. EXAMINATION: CT HEAD WITHOUT CONTRAST CLINICAL INFORMATION: Syncope COMPARISON: None available. TECHNIQUE: Contiguous axial imaging was performed from the skull base to vertex without intravenous administration of contrast. This CT examination was performed using dose optimization techniques as appropriate, variously including the following: *Automated exposure control *Adjustment of mA and/or kV according to patient size (this includes techniques or standardized protocols for targeted exams where dose is matched to indication/reason for exam; i.e. extremities or head) *Use of iterative reconstruction technique DLP: 834 mGy-cm FINDINGS: There is no acute intra-axial, extra-axial bleed, masses or midline shift. There is no acute infarction in evolution. The bolanos to white matter differentiation is maintained normal. The lateral ventricles are symmetrical in size and configuration without enlargement. There is diffuse periventricular hypodensity suggestive chronic small vessel ischemic changes. Bone windows reveal no calvarial fracture. There is no scalp soft tissue abnormality. Bilateral paranasal sinuses and mastoid air cells are well-aerated. There is normal symmetry of bilateral orbits and optic globe. CT/CT head/brain wo IV con IMPRESSION: 1. No acute intracranial process seen. 2. Age-related cerebral volume loss with chronic small vessel ischemic changes. Dictated By: Aaron Hernandez MD Signed By: Electronically signed by Aaron Hernandez MD 05/01/23 1521 EXAMINATION: XR CHEST CLINICAL INFORMATION: Syncope. COMPARISON: Chest x-ray 11/08/2021 TECHNIQUE: Frontal view of the chest was obtained. FINDINGS: Telemetry leads overlie the chest. The cardiomediastinal silhouette is stable. No vascular congestion or edema. Lungs are mildly hypoexpanded. Calcified granuloma in the left midlung. No consolidation or effusion. XR/XR chest 1V IMPRESSION: No acute cardiopulmonary findings. Dictated By: Blanco Jenkins MD Signed By: Electronically signed by Blanco Jenkins MD 05/01/23 1553 Vent. Rate: 065 BPM Atrial Rate: 065 BPM P-R Int: 158 ms QRS Dur: 096 ms QT Int: 404 ms P-R-T Axes: 040 008 035 degrees QTc Int: 420 ms Normal sinus rhythm Minimal voltage criteria for LVH, may be normal variant ( [place] product ) Cannot rule out Inferior infarct , age undetermined Cannot rule out Anterior infarct , age undetermined Abnormal ECG When compared with ECG of 31-OCT-2022 15:27, Minimal criteria for Anterior infarct are now Present No significant change was found DD/ 1347 Radiology Impression Discussion of test interpretation with radiology: I have reviewed the radiologist's reading. Independent Historian Clinical information obtained from an independent historian. History obtained from or confirmed by: EMS (EMS provided additional history and confirmed the history provided by the patient.) Chronic Conditions Patient?s care impacted by: Diabetes Discharge Plan Discharge Clinical Impression: Syncope Patient Disposition: Still a Patient Prescriptions: No Action (DME) diabetic shoes with 3 inserts 8 See Rx Instructions .Route .MEDSUPPLY Qty: 3 0RF Rx Instructions: As directed (DME) blood-glucose meter [FreeStyle Precision En Meter] Mis See Rx Instructions .Route Qty: 1 0RF Rx Instructions: Tests 4 X/day quetiapine 50 mg tablet 50 mg PO QAM 90 Days Qty: 90 1RF risperidone 1 mg tablet 1 mg PO QAM 90 Days Qty: 90 1RF atorvastatin 40 mg tablet 40 mg PO DAILY Qty: 90 3RF ferrous sulfate 325 mg (65 mg iron) tablet 325 mg PO DAILY 90 Days Qty: 90 3RF ascorbic acid (vitamin C) [Vitamin C] 500 mg tablet 500 mg PO DAILY Qty: 30 10RF Eliquis 5 mg tablet 5 mg PO BID 90 Days Qty: 180 3RF tamoxifen 20 mg tablet 20 mg PO DAILY Qty: 30 6RF metoprolol succinate [Toprol XL] 100 mg tablet extended release 24 hr 100 mg PO DAILY 90 Days Qty: 90 2RF (DME) lancets [TRUEplus Lancets] 33 gauge misc See Rx Instructions .ROUTE .COMPLEX Qty: 100 4RF Dose Instruction: TEST BLOOD SUGAR FOUR TIMES DAILY Rx Instructions: TEST BLOOD SUGAR FOUR TIMES DAILY (DME) FreeStyle Carola 2 [place] Misc See Rx Instructions .Route Qty: 1 0RF Rx Instructions: As directed (DME) pen needle, diabetic [UltiCare Pen Needle] 32 gauge x 5/32 needle See Rx Instructions .ROUTE .COMPLEX Qty: 200 4RF Dose Instruction: USE THREE TIMES DAILY Rx Instructions: USE THREE TIMES DAILY Linzess 145 mcg capsule 145 mcg PO QAM Qty: 30 3RF simethicone 180 mg capsule 180 mg PO TID Qty: 90 3RF cholecalciferol (vitamin D3) [Vitamin D3] 25 mcg (1,000 unit) capsule 25 mcg PO DAILY Qty: 30 11RF magnesium oxide 250 mg magnesium tablet 250 mg PO BID Qty: 180 2RF valsartan 320 mg tablet 320 mg PO DAILY Qty: 90 2RF amlodipine 5 mg tablet 5 mg PO DAILY 90 Days Qty: 90 1RF (DME) FreeStyle Precision En Strips Strip See Rx Instructions .ROUTE .COMPLEX Qty: 100 4RF Dose Instruction: TEST BLOOD SUGAR FOUR TIMES DAILY Rx Instructions: TEST BLOOD SUGAR FOUR TIMES DAILY (DME) FreeStyle Carola 2 Sensor Kit See Rx Instructions .ROUTE .COMPLEX Qty: 2 5RF Dose Instruction: USE DIRECTED. CHANGE EVERY 2 WEEKS Rx Instructions: USE DIRECTED. CHANGE EVERY 2 WEEKS hydroxyzine HCl 25 mg tablet 25 mg PO BID PRN (Reason: itching) 30 Days Qty: 60 2RF Toujeo Max U-300 SoloStar 300 unit/mL (3 mL) insulin pen 87 unit subcut DAILY 30 Days Qty: 8.7 4RF ondansetron 4 mg tablet,disintegrating 4 mg PO Q8H PRN (Reason: nausea and vomiting) 7 Days Qty: 21 0RF insulin lispro [Humalog KwikPen Insulin] 100 unit/mL insulin pen 35 unit subcut TID 30 Days Qty: 31.5 11RF Rx Instructions: Hold dinner humalog if sugar less than 200. (DME) cane Device See Rx Instructions .Route Qty: 1 0RF Rx Instructions: As directed sennosides [Whit-chitra] 8.6 mg tablet 17.2 mg PO BID 30 Days Qty: 120 6RF (DME) compr.stocking,knee,long,large Misc See Rx Instructions .ROUTE .MEDSUPPLY Qty: 12 0RF Rx Instructions: As directed citalopram 20 mg tablet 20 mg PO DAILY (DME) pen needle, diabetic 32 gauge x needle See Rx Instructions subcut .MEDSUPPLY Qty: 50 Rx Instructions: As directed (DME) lancets 33 gauge misc See Rx Instructions Not Applicable QID Qty: 100 Rx Instructions: As directed acetaminophen 650 mg tablet extended release 650 mg PO Q8H PRN (Reason: moderate pain) chlorhexidine gluconate 0.12 % mouthwash PO famotidine [Pepcid] 40 mg tablet 40 mg PO BEDTIME Qty: 30 6RF metoclopramide HCl [Reglan] 5 mg tablet 5 mg PO .TIDAC Qty: 90 6RF Rx Instructions: Provider is aware of possible interactions and is monitoring
--- NOTE | 2023-05-01 13:18 | ECG_ITS ---
Test Reason : SYNCOPE Blood Pressure : / mmHG Vent. Rate : 065 BPM Atrial Rate : 065 BPM P-R Int : 158 ms QRS Dur : 096 ms QT Int : 404 ms P-R-T Axes : 040 008 035 degrees QTc Int : 420 ms Normal sinus rhythm Minimal voltage criteria for LVH, may be normal variant ( [place] product ) Cannot rule out Inferior infarct , age undetermined Cannot rule out Anterior infarct , age undetermined Abnormal ECG When compared with ECG of 31-OCT-2022 15:27, Minimal criteria for Anterior infarct are now Present No significant change was found Referred By: Rebekah Desir Electronically Signed By:Alonso Goins
[2023-05-01 14:01] LABS: MANUAL DIFF FLAG NO
[2023-05-01 14:03] LABS: Basophils Percent Auto 0.2 % (0-2); Eosinophils Absolute Auto 0.2 X10*3/uL (0.0-0.4); Eosinophils Percent Auto 1.6 % (0-4); Hematocrit 35.5 % (37.0-47.0); Hemoglobin 11.8 g/dl (12.0-16.0); Imm Gran Abs Auto 0.03 X10*3/uL (0.00-0.03); Imm Gran Pct Auto 0.3 % (0.0-0.4); Lymphocytes Percent Auto 20.9 % (20-40); Mean Corpuscular HGB Conc 33.2 g/dl (31.0-35.0); Mean Corpuscular Hemoglobin 27.8 pg (27.0-33.0); Mean Corpuscular Volume 83.5 fL (80.0-98.0); Mean Platelet Volume 10.8 fL (9.4-12.3); Monocytes Absolute Auto 0.7 X10*3/uL (0.1-1.2); Monocytes Percent Auto 6.9 % (2-11); Neutrophils Absolute Auto 6.8 x10*3/uL (2.0-8.3); Neutrophils Percent Auto 70.1 % (45-73); Platelet Count 243 X10*3/uL (160-400); Red Blood Count 4.25 X10*6/uL (4.20-5.50); Red Cell Distribution Width 12.9 % (11.0-16.0); White Blood Count 9.7 X10*3/uL (4.8-10.8)
[2023-05-01 14:10] LABS: INTERNATIONAL NORM RATIO 1.1 (0.9-1.1); Prothrombin Time 13.7 SEC (11.1-13.3)
[2023-05-01 14:13] LABS: Partial Thromboplastin Time 35.9 SEC (26.0-36.4)
[2023-05-01 14:15] LABS: Alanine Aminotransferase 28 U/L (0-31); Albumin Level 3.3 g/dL (3.5-5.0); Alkaline Phosphatase 81 U/L (39-117); Anion Gap 13 (12-20); Aspartate Amino Transferase 30 U/L (5-31); Bilirubin Total 0.2 mg/dL (0.0-1.0); Blood Urea Nitrogen 30 mg/dL (9-16); Calcium 9.7 mg/dL (8.4-10.2); Carbon Dioxide 21 mmol/L (22-29); Chloride 109 mmol/L (96-108); Creatinine Clr Calc Pharmacy 33.5; Estimated Glomerular Filt Rate 34; Glucose Random 214 mg/dL (60-115); Magnesium 2.1 mg/dL (1.6-2.6); Potassium 4.7 mmol/L (3.3-5.1); Sodium 138 mmol/L (135-145); Total Protein 6.9 g/dL (6.5-8.0)
[2023-05-01 14:22] LABS: Troponin-I High Sensitivity 3.5 ng/L (<3.5-17.0)
[2023-05-01 14:42] LABS: Influenza A PCR NEGATIVE (Negative); Influenza B PCR NEGATIVE (Negative); Resp Syncy Virus RNA Qual PCR NEGATIVE (Negative); SARS COV2 PCR INHOUSE NEGATIVE (Negative)
[2023-05-01] MEDS: 0.9 % Sodium Chloride 1,000 ML 999 ML IV (15:13)
--- NOTE | 2023-05-01 18:55 | PC.NURSE ---
patient ambulatory to the bathroom with steady gait. patient is alert and oriented
[2023-05-01 19:12] LABS: Appearance Urine Clear; Color Urine Yellow; Glucose Urine UA Negative (Negative); Leukocyte Esterase Urine Negative (Negative); Nitrite Urine Negative (Negative); PH 5.5 (5.0-9.0); UMIC TRIGGER UACC YES; Urine Blood Negative (Negative); Urine Ketones Negative (Negative); Urine Protein 100 (2+) mg/dL (Neg-Trace)
[2023-05-01 19:16] LABS: Bacteria Urine Trace (None Seen); Hyaline Casts Urine 0-2 /LPF (0-2); RBC Urine 0-2 /HPF (0-2); Squamous Epithelial Cell Urine 0-2 /HPF (0-2); WBC Urine 0-5 /HPF (0-5)
== END 2023-05-01 19:59 | disposition home or self-care (01) ==
PROVIDERS: Physician Assistant Medical; Emergency Provider Emergency Medicine Emergency Medical Services; PCP Internal Medicine
DX: R55 Syncope and collapse (principal); Z20.822 Contact with and (suspected) exposure to COVID-19; Z20.828 Contact with and (suspected) exposure to other viral communicable diseases; E11.22 Type 2 diabetes mellitus with diabetic chronic kidney disease; I12.9 Hypertensive chronic kidney disease with stage 1 through stage 4 chronic kidney disease, or unspecified chronic kidney disease; N18.30 Chronic kidney disease, stage 3 unspecified; E78.5 Hyperlipidemia, unspecified; I48.0 Paroxysmal atrial fibrillation; Z79.01 Long term (current) use of anticoagulants; Z79.4 Long term (current) use of insulin; Z79.02 Long term (current) use of antithrombotics/antiplatelets; Z79.899 Other long term (current) drug therapy
CPT/HCPCS: 0241U; 70450; 71045; 80053; 81001; 83735; 84484; 85025; 85610; 85730; 93005; 96360; 99284; 99285

== ENCOUNTER → 2023-05-01 13:18 | Outpatient (BNV) | payer MEDICARE, MEDICAID, SELFPAY | PROVIDERS: Emergency Provider Emergency Medicine Emergency Medical Services; PCP Internal Medicine; Visit Provider Internal Medicine Cardiovascular Disease | DX: R94.31 Abnormal electrocardiogram [ECG] [EKG] (principal); R55 Syncope and collapse | CPT/HCPCS: 93010 ==

== ENCOUNTER 2023-05-10 10:34 | Outpatient (AMB) | payer MEDICARE, MEDICAID, SELFPAY ==
--- NOTE | 2023-05-10 10:46 | HO.NEPHOV_ITS ---
HPI HPI Comments History of Present Illness Details 77-year-old woman with a history of obes ity and diabetes mellitus with its chronic kidney disease has been referred for evaluation of CKD. She has had high attention and diabetes medicines 1996. Upon reviewing the labs it appears that the blood sugars have been suboptimally controlled with a hemoglobin A1c of around 10%. She was also found to have significant proteinuria. She is on a maximum dose of valsartan of 320 mg. Baseline serum creatinine is between 1.11.2 mg/dL. In April the serum creatinine was 1.35 and 1.49 mg/dL. And hands this referral [employer] service was used [facility] Medical History Abdominal bloating Elevated TSH Preoperative clearance Bilateral leg pain Urticaria Obesity (BMI 30-39.9) Diabetic nephropathy associated with type 2 diabetes mellitus Nausea and vomiting Microalbuminuria due to type 2 diabetes mellitus Paroxysmal atrial fibrillation Slurred speech History of endometrial cancer Depression Iron deficiency anemia History of left breast cancer Hypothyroidism Schizophrenia retirement (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 Mother Diabetes mellitus Heart disease Social History Household Members: Family and None Household Members Other:: Kajal Menendez [phone] Housing: Apartment Alcohol intake: never Patient Tobacco Use Status: Never used Tobacco e-Cigarette/Vaping Use: Never Used Second Hand Smoke Exposure: No service: No Current occupational status: disabled Cognitive needs: Yes Hearing needs: No Vision needs: Yes Vital Signs 05/10/23 10:50 Height 5 ft 2 in Weight 190 lb 8 oz BMI 34.8 BP 144/52 H Blood Pressure Location Lt brachial Position Sitting Pulse 72 Pulse Source Pulse Oximeter Pulse Oximetry (%) 97 Oxygen Delivery Method Room Air Physical Exam Vital Signs: Last Vital Signs Pulse 72 05/10/23 10:50 BP 144/52 H 05/10/23 10:50 Pulse Ox 97 05/10/23 10:50 Oxygen Delivery Method Room Air 05/10/23 10:50 BMI result Body Mass Index 34.8 Const General: comfortable Nutritional Appearance: well nourished and obese Orientation/consciousness: patient oriented x3 HEENT Head: No normal to inspection Mouth: moist mucous membranes Neck Neck: Yes supple and Yes no JVD Resp Auscultation: clear to auscultation bilaterally, no rales and rub present Cardio Jugular venous distension: no JVD Palpation: no palpable S3 and no palpable S4 Heart sounds: no rubs GI Palpation (GI): Soft to palpation and nontender Percussion: No Fluid wave present General: Yes no CVA tenderness Back/Spine/Pelvis Back: no CVA tenderness Skin General skin exam: no rashes or lesions noted Neuro General: patient oriented x3 Extrem General: Yes no pedal edema and No clubbing Assessment & Plan Assessment & Plan (1) Hypertension: Code(s): I10 - Essential (primary) hypertension Qualifiers: Hypertension type: essential hypertension Qualified Code(s): I10 - Essential (primary) hypertension Plan: Goal is to maintain blood pressure less than 130/80. Discussed weight loss. She should stay on low-sodium diet. Continue with current antihypertensive regimen. (2) CKD (chronic kidney disease) stage 3, GFR 30-59 ml/min: Code(s): N18.30 - Chronic kidney disease, stage 3 unspecified Plan: CKD 3 with about 1 g of proteinuria in setting of longstanding diabetes mellitu s. She probably has underlying diabetic nephropathy. There could be a component of CASS. Differential diagnosis would include hypoperfusion. She had a CT scan back in October which did not reveal any significant obstruction. Glomerulonephritis and interstitial disease seem unlikely nevertheless I will rule that out. I will screen for comorbid conditions including anemia and secondary hyperpa rathyroidism. Goal is to slow the progression of renal disease. Discussed importance of tight control of blood sugar and maintain hemoglobin A1c less than 7%. Agree with maximizing ARB. She will benefit from the addition of SGLT 2 inhibitor. Orders: Orders Electrolytes Today N18.30 - Chronic kidney disease, stage 3 unspecified Parathyroid Hormone Intact Today N18.30 - Chronic kidney disease, stage 3 unspecified Total Protein Urine Random Today N18.30 - Chronic kidney disease, stage 3 unspecified Blood Urea Nitrogen Today N18.30 - Chronic kidney disease, stage 3 unspecified Creatinine Today N18.30 - Chronic kidney disease, stage 3 unspecified Calcium Today N18.30 - Chronic kidney disease, stage 3 unspecified Creatinine Urine Today N18.30 - Chronic kidney disease, stage 3 unspecified Coding Level of Care Code New Pt Level 4 (76671) Diagnoses Essential hypertension I10 Hypertension type: essential hypertension CKD (chronic kidney disease) stage 3, GFR 30-59 ml/min N18.30 Results Reviewed Results Reviewed: CT scan October 2022: KIDNEYS AND URETERS: The kidneys are normal in size, shape, and attenuation. No hydronephrosis, hydroureter, or calculi seen. No perinephric stranding. A 1.5 cm low-attenuation lesion in the lower pole of the left kidney represents a cyst by CT Hounsfield units criteria and no further imaging follow-up of this finding is warranted. Nephrology Results: Hgb 11.8 g/dl (12.0-16.0) L 05/01/23 WBC 9.7 X10*3/uL (4.8-10.8) 05/01/23 Plt Count 243 X10*3/uL (160-400) 05/01/23 Sodium 138 mmol/L (135-145) 05/01/23 Potassium 4.7 mmol/L (3.3-5.1) 05/01/23 Chloride 109 mmol/L (96-108) H 05/01/23 Carbon Dioxide 21 mmol/L (22-29) L 05/01/23 BUN 30 mg/dL (9-16) H 05/01/23 Creatinine 1.49 mg/dL (0.5-1.4) H 05/01/23 Calcium 9.7 mg/dL (8.4-10.2) 05/01/23 Urine Protein 100 (2+) mg/dL (Neg-Trace) H 05/01/23
[2023-05-10 10:50] VITALS: BP 144/52; PULSE 72; O2SAT 97; BMI 34.8
== END 2023-05-10 11:03 | disposition home or self-care (01) ==
PROVIDERS: PCP Internal Medicine; Referring Provider Internal Medicine; Visit Provider Internal Medicine Hypertension Specialist
DX: I10 Essential (primary) hypertension (principal); N18.30 Chronic kidney disease, stage 3 unspecified
CPT/HCPCS: 99204

== ENCOUNTER → 2023-05-10 10:34 | Outpatient (BNVA) | payer MEDICARE, MEDICAID, SELFPAY | PROVIDERS: PCP Internal Medicine; Referring Provider Internal Medicine; Visit Provider Internal Medicine Hypertension Specialist | DX: I12.9 Hypertensive chronic kidney disease with stage 1 through stage 4 chronic kidney disease, or unspecified chronic kidney disease (principal); N18.30 Chronic kidney disease, stage 3 unspecified | CPT/HCPCS: 99202 ==

== ENCOUNTER 2023-05-10 11:35 | Outpatient (REF) | payer MEDICARE, MEDICAID, SELFPAY ==
[2023-05-10 13:46] LABS: Anion Gap 12 (12-20); Blood Urea Nitrogen 30 mg/dL (9-16); Calcium 9.3 mg/dL (8.4-10.2); Carbon Dioxide 22 mmol/L (22-29); Chloride 110 mmol/L (96-108); Estimated Glomerular Filt Rate 42; Potassium 4.1 mmol/L (3.3-5.1); Sodium 140 mmol/L (135-145)
[2023-05-10 14:14] LABS: Parathyroid Hormone Intact 77.1 pg/mL (8.7-77.1)
[2023-05-10 14:29] LABS: Creatinine Urine 175.79 mg/dL
[2023-05-10 15:39] LABS: Total Protein Urine Random 627 mg/dL (<12)
== END 2023-05-10 11:36 | disposition home or self-care (01) ==
LOC: HO.10HDL 11:35
PROVIDERS: Visit Provider Internal Medicine Hypertension Specialist
DX: N18.30 Chronic kidney disease, stage 3 unspecified (principal)
CPT/HCPCS: 36415; 80051; 82310; 82565; 82570; 83970; 84156; 84520

== ENCOUNTER 2023-05-19 09:41 | Outpatient (AMB) | payer OTHER, SELFPAY ==
--- NOTE | 2023-05-19 10:29 | A.OFFVIS_ITS ---
Intake Intake Visit Reasons: DM Workers' Compensation Claims Supervisor Required: Yes Workers' Compensation Claims Supervisor Language: Change Management Specialist Name: [facility] Accompanied by: Daughter Allergies JERMAINE Inhibitors [JERMAINE INHIBITORS] Adverse Reaction (Intermediate, Verified 05/10 10:51) COUGH lactose [LACTOSE] Adverse Reaction (Intermediate, Verified 05/10/23 10:51) GI DISCOMFORT HPI Comprehensive Diabetes Asmnt Most Recent Diabetes Results: Creatinine 1.25 mg/dL (0.5-1.4) 05/10/23 Blood Urea Nitrogen 30 mg/dL (9-16) H 05/10/23 Sodium 140 mmol/L (135-145) 05/10/23 Potassium 4.1 mmol/L (3.3-5.1) 05/10/23 Chloride 110 mmol/L (96-108) H 05/10/23 Carbon Dioxide 22 mmol/L (22-29) 05/10/23 Calcium 9.3 mg/dL (8.4-10.2) 05/10/23 AST 30 U/L (5-31) 05/01/23 ALT 28 U/L (0-31) 05/01/23 Total Protein 6.9 g/dL (6.5-8.0) 05/01/23 Albumin 3.3 g/dL (3.5-5.0) L 05/01/23 PFSH Medical History Abdominal bloating Elevated TSH Preoperative clearance Bilateral leg pain Urticaria Obesity (BMI 30-39.9) Diabetic nephropathy associated with type 2 diabetes mellitus Nausea and vomiting Microalbuminuria due to type 2 diabetes mellitus Paroxysmal atrial fibrillation Slurred speech History of endometrial cancer Depression Iron deficiency anemia History of left breast cancer 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 Mother Diabetes mellitus Heart disease Social History Household Members: Family and None Household Members Other:: Kajal Menendez [phone] Housing: Apartment Alcohol intake: never Patient Tobacco Use Status: Never used Tobacco e-Cigarette/Vaping Use: Never Used Second Hand Smoke Exposure: No service: No Current occupational status: disabled Cognitive needs: Yes Hearing needs: No Vision needs: Yes Assessment & Plan Assessment & Plan (1) Microalbuminuria due to type 2 diabetes mellitus: Code(s): E11.29 - Type 2 diabetes mellitus with other diabetic kidney complication; R80.9 - Proteinuria, unspecified Plan: Personal Continuous Glucose Monitor: Patients CGM information reviewed Reviewed patient's sensor data: Hypoglycemia: ? 0% Hyperglycemia:? 92% Time in Range:? 8% Average glucose for the last 2 weeks? 259 mg/dL Pt reports that she fell at home at approximately 3am, at 8:20am her daughter found her on the floor. Pt arrived at diabetes education appt, had difficulty walking to exam room, c/o nausea and 8 out of 10 pain. Recommended to Pt the she be transported to ED, ambulance called to transport Pt. I will request Dr. Yen switch Pt to Dexcom G7 sensors due to Pt being prescribed Vit C 500mg. Also recommend Pt increase toujeo from 87 units to 90 units Reviewed how to interpret trend arrows Reminded patient that to check finger sticks if symptoms do not match sensor reading. Discussed lag time between finger stick and sensor data.? Patient able to insert sensor independently at home without issue.? Patient Instructions: Aumentar toujeo de 87 unidades a 90 unidades. Llame para programar sherri lorena para la capacitaci?n de Dexcom G7 cuando reciba nuevos sensores Coding Level of Care Code Est Pt Level 1 (97360) Diagnoses Microalbuminuria due to type 2 diabetes mellitus E11.29; R80.9
== END 2023-05-19 10:53 | disposition home or self-care (01) ==
PROVIDERS: PCP Internal Medicine; Visit Provider Registered Nurse Diabetes Educator
DX: E11.29 Type 2 diabetes mellitus with other diabetic kidney complication (principal); R80.9 Proteinuria, unspecified

== ENCOUNTER → 2023-05-19 09:41 | Outpatient (BNVA) | payer MEDICARE, MEDICAID, SELFPAY | PROVIDERS: PCP Internal Medicine; Visit Provider Registered Nurse Diabetes Educator ==

== ENCOUNTER 2023-05-19 11:02 | Emergency (ER) | payer OTHER, SELFPAY ==
--- NOTE | ~2023-05-19 | CT_ITS ---
EXAMINATION: CT LUMBAR SPINE WITHOUT CONTRAST CLINICAL INFORMATION: Fall with low back pain. COMPARISON: CT scan of the abdomen and pelvis 07/11/2018. TECHNIQUE: A noncontrast axial CT scan of the lumbar spine was obtained. Coronal and sagittal reformatted images were generated at the acquisition workstation. This CT examination was performed using dose optimization techniques as appropriate, variously including the following: *Automated exposure control *Adjustment of mA and/or kV according to patient size (this includes techniques or standardized protocols for targeted exams where dose is matched to indication/reason for exam; i.e. extremities or head) *Use of iterative reconstruction technique DLP; 668.04 mGy-cm FINDINGS: VERTEBRAL BODIES AND PARASPINAL STRUCTURES: There is a slight dextroscoliosis. There is narrowing of intervertebral disc height at L1-L2. There are degenerative endplate contour changes with sclerosis toward the left at L4-L5 and toward the right at L5-S1. There are multilevel vacuum discs. There are prominent anterior and right-sided flowing osteophytes at T12-L1 and L1-L2. There is invagination of disc into the inferior endplate of L4, demonstrated on prior imaging. Body heights are maintained and no compression fractures. There are atheromatous calcifications of the aorta and its branches. There are a few small retroperitoneal lymph nodes. There is mild fullness of the left adrenal gland measuring 1.2 cm, unchanged compared to prior imaging with Hounsfield units less than 10. Adrenal nodules of any size exhibiting a CT density of =<10 HU are overwhelmingly likely to represent lipid rich benign adenomas for which no followup imaging is recommended. The visualized pelvis is unremarkable. There are arthropathic changes of the bilateral sacroiliac joints. SPINAL LEVELS: T12-L1. There is mild bilateral facet arthropathy. Disc contour is normal. There is no central stenosis or foraminal narrowing. L1-L2: There is mild bilateral facet arthropathy. There is a small posterior disc protrusion but there is no central stenosis. The neural foramina appear patent bilaterally. L2-L3: There is mild bilateral facet arthropathy. Disc contour is normal. There is no central stenosis or foraminal narrowing. L3-L4: There is mild facet arthropathy. There is a shallow posterior disc protrusion with flattening of the ventral thecal sac, and there is mild central stenosis. There are inferior foraminal disc protrusions without definite exiting nerve root impingement. L4-L5: There is moderate bilateral facet arthropathy. There is a posterior disc protrusion with flattening of the ventral thecal sac and there is mild central stenosis. There are bilateral foraminal disc protrusions, more prominent on the left. L5-S1: There is moderate right and mild to moderate left facet arthropathy. There is a posterior disc protrusion which is most prominent centrally and to the left, with narrowing of the subarticular recesses and likely impingement on the traversing S1 nerve roots. There are also right greater than left foraminal disc osteophyte complexes with impingement on the exiting right L5 nerve root. CT/CT lumbar spine wo IV con IMPRESSION: 1. There are no acute fractures or subluxations. 2. At L5-S1 there is facet arthropathy and there is a posterior disc protrusion which is most prominent centrally and to the left with narrowing of the subarticular recesses and likely impingement on the traversing S1 nerve roots. There are also right greater than left foraminal disc osteophyte complexes with impingement on the exiting right L5 nerve root. 3. At L4-L5 there is moderate facet arthropathy. There is a posterior disc protrusion with flattening of the ventral thecal sac and there is mild central stenosis. There are bilateral foraminal disc protrusions, more prominent on the left. 4. Milder spondylitic and facet arthropathic changes are demonstrated at other levels as described above.
--- NOTE | ~2023-05-19 | CT_ITS ---
EXAMINATION: CT HEAD WITHOUT CONTRAST CT CERVICAL SPINE WITHOUT CONTRAST CLINICAL INFORMATION: Head trauma. Neck trauma. COMPARISON: CT head from 05/01/2023. TECHNIQUE: Contiguous axial imaging was performed from the skull base to vertex without intravenous administration of contrast. Contiguous axial imaging was performed from the upper chest through the skull base without intravenous administration of contrast. Coronal and sagittal reformats were obtained at the acquisition workstation. This CT examination was performed using dose optimization techniques as appropriate, variously including the following: *Automated exposure control. *Adjustment of mA and/or kV according to patient size (this includes techniques or standardized protocols for targeted exams where dose is matched to indication/reason for exam; i.e. extremities or head). *Use of iterative reconstruction technique. DLP: 1416 mGy-cm FINDINGS: Head: There is no evidence of acute intracranial hemorrhage or edematous territorial infarction. Adams-white matter differentiation is preserved. Scattered and partially confluent hypoattenuation in the periventricular and deep white matter are consistent with moderate microangiopathy. Proportional prominence of the ventricles and sulcal spaces without evidence of obstructive hydrocephalus. No abnormal mass effect or midline shift. No extra-axial fluid collections. Calcific atherosclerotic disease of the intracranial internal carotid and vertebral arteries. No hyperdense vessel sign. No acute soft tissue or osseous abnormalities. Mild mucosal thickening of the paranasal sinuses. The mastoid air cells and middle ear cavities are clear. Multifocal odontogenic enamel erosions and periapical lucencies. Moderate degenerative arthropathy of the right temporomandibular joint. Mild anterior subluxation of the left temporomandibular joint. Bilateral lens extractions. Cervical Spine: The atlantooccipital and atlantoaxial articulations remain well aligned. Straightening of the normal cervical lordosis. Otherwise, there is anatomic alignment of the vertebral bodies and posterior elements. No evidence of acute fracture or subluxation. The vertebral body heights are maintained. Moderate degenerative disc disease from C3-T2. Facet and uncovertebral joint arthropathy leads to osseous encroachment on the neural foramina from C5-C7. There is no prevertebral soft tissue swelling. The thyroid gland and remaining cervical soft tissues are within normal limits. The lung apices demonstrate no abnormalities. CT/CT cervical spine wo IV con IMPRESSION: 1. No evidence of acute intracranial hemorrhage or edematous territorial infarction. Moderate underlying microangiopathy and generalized cerebral volume loss. 2. No evidence of acute fracture or traumatic subluxation of the cervical spine. Moderate multilevel degenerative spondyloarthropathy of the cervical spine.
[2023-05-19 11:13] VITALS: BP 141/57; BP 170/78; PULSE 73; PULSE 78; RESP 16; TEMP 37; O2SAT 96; O2SAT 98; BMI 30.2
--- NOTE | 2023-05-19 11:22 | ECG_ITS ---
Test Reason : FALL Blood Pressure : / mmHG Vent. Rate : 072 BPM Atrial Rate : 072 BPM P-R Int : 146 ms QRS Dur : 090 ms QT Int : 416 ms P-R-T Axes : 043 010 041 degrees QTc Int : 455 ms Normal sinus rhythm Minimal voltage criteria for LVH, may be normal variant ( Ton product ) Cannot rule out Inferior infarct (cited on or before 17-JAN-2020) Abnormal ECG When compared with ECG of 01-MAY-2023 13:47, No significant change was found Referred By: Jamia Bautista Electronically Signed By:CARON DOMINGUEZ
--- NOTE | 2023-05-19 11:26 | ED_ITS ---
HPI - Fall General Chief Complaint: Fall Stated Complaint: FALL IN SHOWER,ON THINNERS PER EMS Time Seen by Provider: 05/19/23 11:06 Source: patient, EMS and old records reviewed Mode of arrival: ambulatory Limitations: other (dementia) History of Present Illness HPI Narrative: 77 yo female with PMH of CKD, gastroparesis, PAF on eliquis, dementia, anemia, schizophrenia, hypothyroidism, HTN, HLD, DM here with c/o having a fall this AM - the details are not well established. She fell sometime this AM in the shower and had a LOC unknown duration unknown cause of fall. She reports LOC to PCP but now denies. She has pain in coccyx area and some nausea. She was able to dress herself and get ready go to PCP before coming to the ED MD complaint: fall Onset (ago): unknown Fall from: standing Fall witnessed: no Place fall occurred: home Loss of consciousness: yes Prolonged down time: unclear Symptoms prior to fall: none Context: other (unsure patient's story has changed and she cannot even tell me where she fell) Location of injury: back Severity: moderate Quality: aching Associated symptoms (after fall): other ( I have a broken butt ) Related Data Home Medications Medication Instructions Recorded Confirmed citalopram 20 mg tablet 20 mg PO DAILY 04/09/20 04/28/23 lancets 33 gauge #100 ea 04/09/20 04/28/23 pen needle, diabetic 32 gauge x #50 ea 04/09/20 04/28/23 acetaminophen 650 mg 650 mg PO Q8H PRN moderate pain 09/15/22 04/28/23 tablet,extended release chlorhexidine gluconate 0.12 % ml PO 09/15/22 04/28/23 mouthwash Previous Rx's Medication Instructions Recorded sennosides 8.6 mg tablet (Whit-chitra) 17.2 mg (2 x 8.6 mg) PO BID 06/18/20 constipation 30 days #120 tabs hydroxyzine HCl 25 mg tablet 25 mg PO BID PRN itching 30 days 08/12/20 #60 tabs compr.stocking,knee,long,large #12 ea 10/16/20 diabetic shoes with 3 inserts #3 ea 12/31/20 blood-glucose meter (FreeStyle #1 ea 12/11/21 Precision En Meter) quetiapine 50 mg tablet 50 mg PO QAM 90 days #90 tabs 12/21/21 risperidone 1 mg tablet 1 mg PO QAM 90 days #90 tabs 12/21/21 atorvastatin 40 mg tablet 40 mg PO DAILY #90 tabs 06/11/22 ferrous sulfate 325 mg (65 mg 325 mg PO DAILY 90 days #90 tabs 07/07/22 iron) tablet ondansetron 4 mg disintegrating 4 mg PO Q8H PRN nausea and 08/10/22 tablet vomiting 7 days #21 tabs ascorbic acid (vitamin C) 500 mg 500 mg PO DAILY #30 tabs 08/16/22 tablet (Vitamin C) apixaban 5 mg tablet (Eliquis) 5 mg PO BID 90 days #180 tabs 08/26/22 famotidine 40 mg tablet (Pepcid) 40 mg PO BEDTIME #30 tabs 11/04/22 metoclopramide HCl 5 mg tablet 5 mg PO .TIDAC #90 tabs 11/04/22 (Reglan) metoprolol succinate 100 mg 100 mg PO DAILY 90 days #90 tabs 11/17/22 tablet,extended release 24 hr (Toprol XL) lancets 33 gauge (TRUEplus Lancets) ##100 11/22/22 flash glucose scanning reader #1 ea 12/06/22 (FreeStyle Carola 2 [place]) cane #1 ea 12/15/22 insulin lispro 100 unit/mL 35 unit (0.35 mL) subcut TID 30 12/15/22 subcutaneous pen (Humalog Kw days #31.5 mL (U-100) Insulin) pen needle, diabetic 32 gauge x #200 ea 03/01/23 (UltiCare Pen Needle) linaclotide 145 mcg capsule 145 mcg PO QAM #30 caps 03/24/23 (Linzess) simethicone 180 mg capsule 180 mg PO TID #90 caps 03/24/23 cholecalciferol (vitamin D3) 25 25 mcg PO DAILY #30 caps 03/25/23 mcg (1,000 unit) capsule (Vitamin D3) amlodipine 5 mg tablet 5 mg PO DAILY 90 days #90 tabs 04/03/23 magnesium oxide 250 mg PO BID #180 tabs 04/03/23 valsartan 320 mg tablet 320 mg PO DAILY #90 tabs 04/03/23 blood sugar diagnostic (FreeStyle #100 strips 04/08/23 Precision En Strips) flash glucose sensor (FreeStyle #2 kits 04/12/23 Carola 2 Sensor kit) insulin glargine U-300 conc 300 87 unit (0.29 mL) subcut DAILY 30 04/28/23 unit/mL (3 mL) subcutaneous pen days #8.7 mL (Toujeo Max U-300 SoloStar) tamoxifen 20 mg tablet 20 mg PO DAILY #30 tabs 05/05/23 Allergies Allergy/AdvReac Type Severity Reaction Status Date / Time JERMAINE Inhibitors AdvReac Intermediate COUGH Verified 05/10/23 10:51 [JERMAINE INHIBITORS] lactose [LACTOSE] AdvReac Intermediate GI Verified 05/10/23 10:51 DISCOMFORT Review of Systems 2 Review of Systems: ROS unable to be obtained due to dementia [facility] Past Medical History Source: old records reviewed Medical History Abdominal bloating Elevated TSH Preoperative clearance Bilateral leg pain Urticaria Obesity (BMI 30-39.9) Diabetic nephropathy associated with type 2 diabetes mellitus Nausea and vomiting Microalbuminuria due to type 2 diabetes mellitus Paroxysmal atrial fibrillation Slurred speech History of endometrial cancer Depression Iron deficiency anemia History of left breast cancer 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 Mother Diabetes mellitus Heart disease Social History Social History Household Members: Family and None Household Members Other:: Kajal Menendez [phone] Housing: Apartment Alcohol intake: never Patient Tobacco Use Status: Never used Tobacco Smoked in Last 30 Days: No e-Cigarette/Vaping Use: Never Used Second Hand Smoke Exposure: No Use of substances other than those prescribed or required for medical reasons: No Advance Directives: No Advance Directives Information Provided: Yes service: No Current occupational status: disabled Cognitive needs: Yes Hearing needs: No Vision needs: Yes Physical Exam 2 Vital Signs: Vital Signs: Last Vital Signs Temp 98.6 F 05/19/23 11:13 Pulse 74 05/19/23 12:36 Resp 14 05/19/23 12:36 BP 157/62 H 05/19/23 12:36 Pulse Ox 96 05/19/23 12:36 O2 Del Method Room Air 05/19/23 12:36 BMI result Body Mass Index 30.2 Appearance: Alert. Oriented X to person and place. No acute distress. Eyes: Pupils equal, round and reactive to light. ENT: Pharynx normal. Atraumatic Neck: Normal inspection. Neck supple. collar in place CVS: Normal heart rate and rhythm. Pulses normal. Respiratory: No respiratory distress. Breath sounds normal. Abdomen: Soft and nontender. Back: ttp along sacral and coccyx area Skin: Skin warm and dry. Normal skin color. Normal skin turgor. Extremities: No lower extremity edema. No calf ttp moving arms and legs well without issue Neuro: Oriented X 2. No motor deficit. No sensory deficit. Medical Decision Making Medical Decision Making [facility] Narrative: 77 yo female with PMH of CKD, gastroparesis, PAF on eliquis, dementia, anemia, schizophrenia, hypothyroidism, HTN, HLD, DM here with c/o fall at home unsure LOC status as story has changed though she consistently c/o low buttock back pain at this time she is NV intact in LE will need CT head/cspine and lumbar spine along with EKG and basic labs. She appears at baseline. Differential Diagnosis Differential Diagnoses: The differential diagnosis associated with the presentation includes head trauma, low back pain, weakness, anemia, dehydration Admission/Observation Consideration of admission/observation: Escalation of care including admission/observation considered at baseline, negative labs and CT scans no signs of cauda equina at this time stable for DC Lab Data [facility] Lab Attestation statement: I reviewed the patient's lab results. stable 05/19/23 11:52 05/19/23 11:52 Labs: Lab Results 05/19/23 Range/Units 11:52 WBC 10.1 (4.8-10.8) X10*3/uL RBC 4.16 L (4.20-5.50) X10*6/uL Hgb 11.6 L (12.0-16.0) g/dl Hct 34.6 L (37.0-47.0) % MCV 83.2 (80.0-98.0) fL MCH 27.9 (27.0-33.0) pg MCHC 33.5 (31.0-35.0) g/dl RDW 13.2 (11.0-16.0) % Plt Count 237 (160-400) X10*3/uL MPV 10.5 (9.4-12.3) fL Immature Gran % (Auto) 0.3 (0.0-0.4) % Neut % (Auto) 69.5 (45-73) % Lymph % (Auto) 21.6 (20-40) % [place] % (Auto) 7.2 (2-11) % Eos % (Auto) 1.1 (0-4) % Baso % (Auto) 0.3 (0-2) % Lymph # (Auto) 2.2 (1.2-4.9) X10*3/uL [place] # (Auto) 0.7 (0.1-1.2) X10*3/uL Eos # (Auto) 0.1 (0.0-0.4) X10*3/uL Baso # (Auto) 0.0 (0.0-0.2) X10*3/uL Abs Immat Gran (auto) 0.03 (0.00-0.03) X10*3/uL Absolute Neuts (auto) 7.0 (2.0-8.3) x10*3/uL Absolute Nucleated RBC 0.000 (0.0-0.012) X10*3/uL Nucleated RBC % (auto) 0.0 (0.0-0.2) /100WBC PT 13.4 H (11.1-13.3) SEC INR 1.1 (0.9-1.1) Sodium 141 (135-145) mmol/L Potassium 4.2 (3.3-5.1) mmol/L Chloride 111 H (96-108) mmol/L Carbon Dioxide 23 (22-29) mmol/L Anion Gap 11 L (12-20) BUN 28 H (9-16) mg/dL Creatinine 1.20 (0.5-1.4) mg/dL Estim Creat Clear Calc 43.0 Estimated GFR 44 Random Glucose 147 H (60-115) mg/dL Calcium 9.7 (8.4-10.2) mg/dL Magnesium 2.0 (1.6-2.6) mg/dL Total Bilirubin 0.2 (0.0-1.0) mg/dL Direct Bilirubin < 0.2 (0.0-0.5) mg/dL AST 25 (5-31) U/L ALT 23 (0-31) U/L Alkaline Phosphatase 75 (39-117) U/L Total Creatine Kinase 8 L (26-140) U/L Troponin I High Sens < 2.7 (<3.5-17.0) ng/L Total Protein 7.2 (6.5-8.0) g/dL Albumin 3.5 (3.5-5.0) g/dL Independent Interpretation I performed an independent interpretation of an: EKG and CT Scan (no trauma) Interpretation: Rate: 72 Rhythm: NSR [place]: normal Normal P waves. Normal PIERRE. Normal QRS complex. ST T wave : normal no ELAINE qTC: normal prior studies: no acute ischemia The study has been interpreted contemporaneously by me. . Radiology Impression Discussion of test interpretation with radiology: I have reviewed the radiologist's reading. Independent Historian Clinical information obtained from an independent historian. History obtained from or confirmed by: EMS External Record Review External record reviewed: Inpatient record and Office record Discharge Plan Discharge Clinical Impression: Fall Qualifiers: Encounter type: initial encounter Qualified Code(s): W19.XXXA - Unspecified fall, initial encounter Acute low back pain Qualifiers: Back pain laterality: bilateral Sciatica presence: without sciatica Qualified Code(s): M54.50 - Low back pain, unspecified Head injury Qualifiers: Encounter type: initial encounter Qualified Code(s): S09.90XA - Unspecified injury of head, initial encounter Patient Disposition: Home, Self-Care Instructions: Acute Low Back Pain (ED), Head Injury (ED) Additional Instructions: no acute fractures of spine. normal head and neck CT scans. return for confusion, vomiting, weakness, loss of control of bowel or bladder or any other concerns. sin fracturas agudas de columna. Tomograf?a computarizada de dl y maggy normales. Regrese por confusi?n, v?mitos, debilidad, p?rdida de control de los intestinos o la vejiga o cualquier otra inquietud. Prescriptions: No Action (DME) diabetic shoes with 3 inserts 8 See Rx Instructions .Route .MEDSUPPLY Qty: 3 0RF Rx Instructions: As directed (DME) blood-glucose meter [FreeStyle Precision En Meter] Misc See Rx Instructions .Route Qty: 1 0RF Rx Instructions: Tests 4 X/day quetiapine 50 mg tablet 50 mg PO QAM 90 Days Qty: 90 1RF risperidone 1 mg tablet 1 mg PO QAM 90 Days Qty: 90 1RF atorvastatin 40 mg tablet 40 mg PO DAILY Qty: 90 3RF ferrous sulfate 325 mg (65 mg iron) tablet 325 mg PO DAILY 90 Days Qty: 90 3RF ascorbic acid (vitamin C) [Vitamin C] 500 mg tablet 500 mg PO DAILY Qty: 30 10RF Eliquis 5 mg tablet 5 mg PO BID 90 Days Qty: 180 3RF metoprolol succinate [Toprol XL] 100 mg tablet extended release 24 hr 100 mg PO DAILY 90 Days Qty: 90 2RF (DME) lancets [TRUEplus Lancets] 33 gauge misc See Rx Instructions .ROUTE .COMPLEX Qty: 100 4RF Dose Instruction: TEST BLOOD SUGAR FOUR TIMES DAILY Rx Instructions: TEST BLOOD SUGAR FOUR TIMES DAILY (DME) FreeStyle Carola 2 [place] Misc See Rx Instructions .Route Qty: 1 0RF Rx Instructions: As directed (DME) pen needle, diabetic [UltiCare Pen Needle] 32 gauge x 5/32 needle See Rx Instructions .ROUTE .COMPLEX Qty: 200 4RF Dose Instruction: USE THREE TIMES DAILY Rx Instructions: USE THREE TIMES DAILY Linzess 145 mcg capsule 145 mcg PO QAM Qty: 30 3RF simethicone 180 mg capsule 180 mg PO TID Qty: 90 3RF cholecalciferol (vitamin D3) [Vitamin D3] 25 mcg (1,000 unit) capsule 25 mcg PO DAILY Qty: 30 11RF magnesium oxide 250 mg magnesium tablet 250 mg PO BID Qty: 180 2RF valsartan 320 mg tablet 320 mg PO DAILY Qty: 90 2RF amlodipine 5 mg tablet 5 mg PO DAILY 90 Days Qty: 90 1RF (DME) FreeStyle Precision En Strips Strip See Rx Instructions .ROUTE .COMPLEX Qty: 100 4RF Dose Instruction: TEST BLOOD SUGAR FOUR TIMES DAILY Rx Instructions: TEST BLOOD SUGAR FOUR TIMES DAILY (DME) FreeStyle Carola 2 Sensor Kit See Rx Instructions .ROUTE .COMPLEX Qty: 2 5RF Dose Instruction: USE DIRECTED. CHANGE EVERY 2 WEEKS Rx Instructions: USE DIRECTED. CHANGE EVERY 2 WEEKS tamoxifen 20 mg tablet 20 mg PO DAILY Qty: 30 6RF hydroxyzine HCl 25 mg tablet 25 mg PO BID PRN (Reason: itching) 30 Days Qty: 60 2RF Toujeo Max U-300 SoloStar 300 unit/mL (3 mL) insulin pen 87 unit subcut DAILY 30 Days Qty: 8.7 4RF ondansetron 4 mg tablet,disintegrating 4 mg PO Q8H PRN (Reason: nausea and vomiting) 7 Days Qty: 21 0RF insulin lispro [Humalog KwikPen Insulin] 100 unit/mL insulin pen 35 unit subcut TID 30 Days Qty: 31.5 11RF Rx Instructions: Hold dinner humalog if sugar less than 200. (DME) cane Device See Rx Instructions .Route Qty: 1 0RF Rx Instructions: As directed sennosides [Whit-chitra] 8.6 mg tablet 17.2 mg PO BID 30 Days Qty: 120 6RF (DME) compr.stocking,knee,long,large Misc See Rx Instructions .ROUTE .MEDSUPPLY Qty: 12 0RF Rx Instructions: As directed citalopram 20 mg tablet 20 mg PO DAILY (DME) pen needle, diabetic 32 gauge x 5/32 needle See Rx Instructions subcut .MEDSUPPLY Qty: 50 Rx Instructions: As directed (DME) lancets 33 gauge misc See Rx Instructions Not Applicable QID Qty: 100 Rx Instructions: As directed acetaminophen 650 mg tablet extended release 650 mg PO Q8H PRN (Reason: moderate pain) chlorhexidine gluconate 0.12 % mouthwash PO famotidine [Pepcid] 40 mg tablet 40 mg PO BEDTIME Qty: 30 6RF metoclopramide HCl [Reglan] 5 mg tablet 5 mg PO .TIDAC Qty: 90 6RF Rx Instructions: Provider is aware of possible interactions and is monitoring Print Language: Luxembourger
[2023-05-19 11:57] LABS: MANUAL DIFF FLAG NO
[2023-05-19 12:00] LABS: Basophils Percent Auto 0.3 % (0-2); Eosinophils Absolute Auto 0.1 X10*3/uL (0.0-0.4); Eosinophils Percent Auto 1.1 % (0-4); Hematocrit 34.6 % (37.0-47.0); Hemoglobin 11.6 g/dl (12.0-16.0); Imm Gran Abs Auto 0.03 X10*3/uL (0.00-0.03); Imm Gran Pct Auto 0.3 % (0.0-0.4); Lymphocytes Absolute Auto 2.2 X10*3/uL (1.2-4.9); Lymphocytes Percent Auto 21.6 % (20-40); Mean Corpuscular HGB Conc 33.5 g/dl (31.0-35.0); Mean Corpuscular Hemoglobin 27.9 pg (27.0-33.0); Mean Corpuscular Volume 83.2 fL (80.0-98.0); Mean Platelet Volume 10.5 fL (9.4-12.3); Monocytes Absolute Auto 0.7 X10*3/uL (0.1-1.2); Monocytes Percent Auto 7.2 % (2-11); Neutrophils Percent Auto 69.5 % (45-73); Platelet Count 237 X10*3/uL (160-400); Red Blood Count 4.16 X10*6/uL (4.20-5.50); Red Cell Distribution Width 13.2 % (11.0-16.0); White Blood Count 10.1 X10*3/uL (4.8-10.8)
[2023-05-19 12:06] LABS: INTERNATIONAL NORM RATIO 1.1 (0.9-1.1); Prothrombin Time 13.4 SEC (11.1-13.3)
[2023-05-19 12:17] LABS: Alanine Aminotransferase 23 U/L (0-31); Albumin Level 3.5 g/dL (3.5-5.0); Alkaline Phosphatase 75 U/L (39-117); Anion Gap 11 (12-20); Aspartate Amino Transferase 25 U/L (5-31); Bilirubin Direct < 0.2 mg/dL (0.0-0.5); Bilirubin Total 0.2 mg/dL (0.0-1.0); Blood Urea Nitrogen 28 mg/dL (9-16); Calcium 9.7 mg/dL (8.4-10.2); Carbon Dioxide 23 mmol/L (22-29); Chloride 111 mmol/L (96-108); Estimated Glomerular Filt Rate 44; Glucose Random 147 mg/dL (60-115); Potassium 4.2 mmol/L (3.3-5.1); Sodium 141 mmol/L (135-145); Total Protein 7.2 g/dL (6.5-8.0)
[2023-05-19 12:28] LABS: Troponin-I High Sensitivity < 2.7 ng/L (<3.5-17.0)
[2023-05-19 12:36] VITALS: BP 157/62; PULSE 74; RESP 14; O2SAT 96
[2023-05-19] MEDS: Acetaminophen 325 MG TABLET 975 MG PO (13:16)
--- NOTE | 2023-05-19 14:06 | PC.NURSE ---
spoke with pts daughter Camila who will come pick pt up shortly
== END 2023-05-19 14:37 | disposition home or self-care (01) ==
PROVIDERS: Emergency Provider Emergency Medicine; PCP Internal Medicine
DX: S09.90XA Unspecified injury of head, initial encounter (principal); S39.92XA Unspecified injury of lower back, initial encounter; M54.50 Low back pain, unspecified; R51.9 Headache, unspecified; R07.89 Other chest pain; W18.2XXA Fall in (into) shower or empty bathtub, initial encounter; Y93.9 Activity, unspecified; Y92.002 Bathroom of unspecified non-institutional (private) residence as the place of occurrence of the external cause; Y99.9 Unspecified external cause status; M54.2 Cervicalgia; Z79.899 Other long term (current) drug therapy
CPT/HCPCS: 36415; 70450; 72125; 72131; 80048; 80076; 82550; 83735; 84484; 85025; 85610; 93005; 99211; 99284; 99285

== ENCOUNTER 2023-05-27 09:00 | Outpatient (REF) | payer OTHER, SELFPAY ==
[2023-05-27 12:05] LABS: Alanine Aminotransferase 21 U/L (0-31); Albumin Level 3.5 g/dL (3.5-5.0); Alkaline Phosphatase 73 U/L (39-117); Anion Gap 12 (12-20); Aspartate Amino Transferase 23 U/L (5-31); Bilirubin Total 0.3 mg/dL (0.0-1.0); Blood Urea Nitrogen 28 mg/dL (9-16); Calcium 9.5 mg/dL (8.4-10.2); Carbon Dioxide 23 mmol/L (22-29); Chloride 111 mmol/L (96-108); Estimated Glomerular Filt Rate 36; Glucose Random 202 mg/dL (60-115); Potassium 4.9 mmol/L (3.3-5.1); Sodium 141 mmol/L (135-145)
[2023-05-27 12:25] LABS: TSH reflex Free T4 3.17 uIU/mL (0.32-4.0)
== END 2023-05-27 09:01 | disposition home or self-care (01) ==
LOC: HO.HHCL 09:00
PROVIDERS: Visit Provider Family Medicine
DX: E11.69 Type 2 diabetes mellitus with other specified complication (principal); Z79.4 Long term (current) use of insulin
CPT/HCPCS: 36415; 80053; 80061; 82043; 82570; 82607; 82746; 84443

== ENCOUNTER 2023-06-14 08:32 | Outpatient (REF) | payer OTHER, SELFPAY ==
--- NOTE | ~2023-06-14 | MM_ITS ---
EXAMINATION: MM SCREENING DIGITAL BREAST TOMOSYNTHESIS, BILATERAL CLINICAL INFORMATION: Screening. Asymptomatic. The patient has a history of left breast cancer diagnosed and conservatively treated in 2017. COMPARISON: Mammography: This study is compared with prior exams dating back to 2018. TECHNIQUE: Digital breast tomosynthesis is performed in both the craniocaudal and mediolateral oblique views along with computer-aided detection (CAD). Synthesized 2D images are generated from the tomosynthesis. FINDINGS: There are scattered areas of fibroglandular density (ACR BI-RADS breast composition Category b). There are surgical clips in the upper outer quadrant of the left breast from prior cancer surgery. There is a focal asymmetry in the upper outer quadrant of the left breast for which additional mammographic and targeted sonographic imaging is advised. In the right breast, there are no significant masses, abnormal calcifications, or other abnormalities. MM/MM tomosynthesis screening BI IMPRESSION: Focal asymmetry of the left breast warrants additional mammographic and targeted sonographic imaging. No mammographic evidence of malignancy right breast. ASSESSMENT: BI-RADS BI-RADS 0 - Incomplete: Needs additional Imaging. RECOMMENDATION: 1. Additional views of the left breast. Rolled cc views with tomosynthesis should be added to the diagnostic imaging protocol. 2. Targeted ultrasound if warranted after review of the additional views. 3. Radiology department staff will contact the patient for additional imaging. Additional Imaging required This examination should not preclude the clinical evaluation of a suspicious palpable abnormality. This patient's information was entered into a reminder system with a target due date for their next mammogram.
== END 2023-06-14 08:33 | disposition home or self-care (01) ==
LOC: HO.MAMMO 08:32
PROVIDERS: PCP Family Medicine; Visit Provider Internal Medicine
DX: Z12.31 Encounter for screening mammogram for malignant neoplasm of breast (principal)
CPT/HCPCS: 77063; 77067; 82947; 99212

== ENCOUNTER 2023-06-14 09:13 | Outpatient (AMB) | payer OTHER, SELFPAY ==
[2023-06-14 09:14] VITALS: BP 162/62; PULSE 85; BMI 31.5
--- NOTE | 2023-06-14 09:14 | MHC.OFFVIS ---
Intake Vital Signs 06/14/23 09:14 Height 5 ft 6 in Weight 194 lb 14.218 oz BMI 31.5 BP 162/62 H Blood Pressure Location Lt brachial Position Sitting Pulse 85 Pulse Source Pulse Oximeter Intake Visit Reasons: DM Intake Note: Patient presents today to follow up on D2MT. Last Diabetic Eye exam: August 2022 Last Podiatry Visit: None Random Glucose: 221 mg/dl HgA1C: 9.7% 04/28/23 Senior Chemical Engineer Required: Yes Senior Chemical Engineer Language: Yellow Pages Space Salesperson Name: Julia medical staff Information Interpreted: non-clinical & clinical Accompanied by: Daughter Allergies JERMAINE Inhibitors [JERMAINE INHIBITORS] Adverse Reaction (Intermediate, Verified 06/14/23 09:20) COUGH lactose [LACTOSE] Adverse Reaction (Intermediate, Verified 06/14/23 09:20) GI DISCOMFORT HPI HPI Comments History of Present Illness Details Patient is 76-year-old female with DM type 2 diagnosed 1995 who presents for management of diabetes. , Past medical history: DM2, bipolar disorder, schizophrenia, hypertension, hyperlipidemia, GERD, allergic rhinitis. Left breast cancer, s/p surgery, endometrial and ovarian cancer s/p total hysterectomy Micro and macrovascular complications: nephropathy, neuropathy, Diabetes medications: Lantus 87 units Humalog 35 units Ac Metformin 750mg BID Daughter administers insulin Symptoms reported: denies numbness, tingling, cramping in lower extremities Hypoglycemia: denies Hyperglycemia: denies urinary frequency, + nocturia, + polydypsia Carola download shows she is using the sensor 78% of the time. Average glucose is 181 with G mi of 7.6% and variability 40.2%. 51% range with 25% hyperglycemia and 19% very hyperglycemic and 5% hypoglycemia.. The hypoglycemia is occurring primarily overnight and after dinner. Hypoglycemia is occurring primarily the reuse technician hours and also after lunch Theatre Professor - CDE education: recently Plug Wirer: none recently Dental exam: , goes every 6 month Ophthalmology evaluation: has appt in 07/2023 . Last appt 07/2022 Daughter states patient is non compliant with diet and eats excessive amount of sugary foods before breakfast and sometimes i does not eat dinner Laboratory Tests complains of nausea and vomiting. Had episode of vomiting today 06/23/21 06/23/21 06/23/21 09:50 09:50 09:50 Creatinine Estimated GFR Hgb A1c (Clinic) Triglycerides Cholesterol LDL Cholesterol Di rect 63 LDL Cholesterol, C alc HDL Cholesterol 25-OH Vitamin D To ramya TSH 3.65 Free T4 1.22 Microalb/Creat Rat io 08/06/21 08/13/21 08/13/21 11:15 09:40 09:49 Creatinine 1.20 Estimated GFR 44 Hgb A1c (Clinic) 8.5 H Triglycerides 116 Cholesterol 117 LDL Cholesterol Di rect LDL Cholesterol, C alc 66 HDL Cholesterol 28 25-OH Vitamin D To ramya 39.2 TSH Free T4 Microalb/Creat Rat io 560.5 PFSH Medical History Abdominal bloating Elevated TSH Preoperative clearance Bilateral leg pain Urticaria Obesity (BMI 30-39.9) Diabetic nephropathy associated with type 2 diabetes mellitus Nausea and vomiting Microalbuminuria due to type 2 diabetes mellitus Paroxysmal atrial fibrillation Slurred speech History of endometrial cancer Depression Iron deficiency anemia History of left breast cancer Hypothyroidism Schizophrenia shelter (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 Mother Diabetes mellitus Heart disease Social History Household Members: Family and None Household Members Other:: Kajal Menendez [phone] Housing: Apartment Alcohol intake: never Patient Tobacco Use Status: Never used Tobacco e-Cigarette/Vaping Use: Never Used Second Hand Smoke Exposure: No service: No Current occupational status: disabled Cognitive needs: Yes Hearing needs: No Vision needs: Yes Physical Exam Vital Signs: Last Vital Signs Pulse 85 06/14/23 09:14 BP 162/62 H 06/14/23 09:14 BMI result Body Mass Index 31.5 Absence of Cushingoid features. Absence of acromegalic features. Neck exam reveals nl size thyroid about 15 gms. No thyroid nodules palpable. No carotid bruits present. Lungs CTA. Heart S1 S2, Reg R/R. No M/R/ G. Skin exam reveals absence of vitiligo or acanthosis nigricans. Abdominal exam reveals Soft NT/ND with NA BS. no focal tenderness on palpation No organomegaly present. Neck Other: . Extrem Other: Visual exam of foot performed. No ulcerations or open lesions. No onchomycosis, no callouses.Pulses 2 + distally . Sensation and vibration with difficult to test considering patient's dementia Sensation intact to monofilament exam. Vibratory sensation sensed is decreased with 128 Hz tuning fork Results Reviewed Results Reviewed: Laboratory Last Values Glucose (Clinic) 221 mg/dL (60-115) H 06/14/23 09:24 Assessment & Plan Assessment & Plan (1) Diabetes type 2, uncontrolled: Code(s): E11.65 - Type 2 diabetes mellitus with hyperglycemia Qualifiers: Glycemic state: with hyperglycemia Qualified Code(s): E11.65 - Type 2 diabetes mellitus with hyperglycemia Plan: This 77-year-old female with a history of type 2 diabetes being treated metformin, and basal-bolus insulin with fair but adequate for patient's age and comorbidity glycemic control and known microvascular complications namely neuropathy and CKD stage III. The plan is to decrease Lantus to 70 units and increase the Humalog to 42 units before breakfast and lunch. Patient to follow up with agricultural extension educator. Quality Reporting (2020) Adult ([facility] [id number]/14/68) Smoking risk assessment performed?: Yes Patient Tobacco Use Status: Never used Tobacco Coding Level of Care Code Est Pt Level 4 (58717) Diagnoses Uncontrolled type 2 diabetes mellitus with hyperglycemia E11.65 Glycemic state: with hyperglycemia
[2023-06-14 09:28] LABS: Glucose, Whole Blood 221 mg/dL (60-115)
== END 2023-06-14 10:04 | disposition home or self-care (01) ==
PROVIDERS: PCP Family Medicine; Visit Provider Internal Medicine Endocrinology, Diabetes & Metabolism
DX: E11.65 Type 2 diabetes mellitus with hyperglycemia (principal)
CPT/HCPCS: 99214

== ENCOUNTER → 2023-06-14 09:30 | Outpatient (BNV) | payer OTHER, SELFPAY | PROVIDERS: PCP Family Medicine; Visit Provider Radiology Diagnostic Radiology | DX: Z12.31 Encounter for screening mammogram for malignant neoplasm of breast (principal) | CPT/HCPCS: 77063; 77067 ==

== ENCOUNTER 2023-07-14 09:38 | Outpatient (AMB) | payer OTHER, SELFPAY ==
--- NOTE | 2023-07-14 09:46 | A.OFFVIS_ITS ---
Intake Vital Signs 07/14/23 09:55 Height 5 ft 6 in Weight 195 lb BMI 31.5 BP 155/69 H Blood Pressure Location Lt brachial Position Sitting Pulse 72 Intake Visit Reasons: follow up [facility] Intake Note: Patient followup for [facility] Patient cc: abdominal pain with bloating, acid reflex and denies any other GI issues. Wood Molder Required: Yes Wood Molder Name: [facility] interpeter Accompanied by: Daughter Allergies JERMAINE Inhibitors [JERMAINE INHIBITORS] Adverse Reaction (Intermediate, Verified 07/14/23 09:45) COUGH lactose [LACTOSE] Adverse Reaction (Intermediate, Verified 07/14/23 09:45) GI DISCOMFORT HPI follow up [facility] HPI Details Assessment & Plan (1) Chronic idiopathic constipation: ?Code(s): K59.04 - Chronic idiopathic constipation ?Plan: [place] #Nguyen, Live She received the LInzess but at 72mcg she is still not moving her bowels well, and she has continues bloating and epigastric pain. Her FINANCIAL OPERATIONS CONSULTANT says that the pt dmitry l not eat much fiber and does not walk or exercise much. Will increase the Linzess to 145mcg as her stool is soft but she has incomplete evacuation. Also adding simethicone. ROV 3 weekss. (2) Abdominal bloating: ?Code(s): R14.0 - Abdominal distension (gaseous) (3) GERD (gastroesophageal reflux diseas e): ?Code(s): K21.9 - Gastro-esophageal reflux disease without esophagitis ?Qualifiers: ?Esophagitis presence:?esophagitis presence not specified? Qualified Code(s):?K21.9 - Gastro-esophageal reflux disease without esophagitis (4) Gastroparesis: ?Code(s): K31.84 - Gastroparesis ? ? ? Medications: New linaclotide (Linze ss) 145 mcg? PO QAM 30 caps 3RF K59.04 - Chronic i diopathic constipa tion ? simethicone ?? aft er meals 180 mg? PO .tidac 30 days 90 caps 3R F ? ? Discontinued linaclotide (Linze ss) ?? Discontinue d Reason:? Doctor' s Order 72 mcg? PO QAM 30 caps 6RF K59.04 - Chronic i diopathic constipa tion TODAY'S VISIT [place] #Breonna Arias She is here today with her dtr who is the primary high court justice She developed a rash and itching after starting metformin after a dose increase. She also has been having diarrhea, so between the metformin increase s/e and the increase LInzess, this is not a good match. They will be seeing Dr. Yen to see if the diabetes meds should be changed. In the meantime, we will lower the LInzess dose. Her current GI regimen consists of famotidine at bedtime, Linzess 72 micro g, metoclopramide 5 mg 3 times a day, senna q.h.s. p.r.n. and simethicone. Return office visit in 3 weeks. 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 Mother Diabetes mellitus Heart disease Social History Household Members: Family and None Household Members Other:: Kajal Menendez [phone] Housing: Apartment Alcohol intake: never Patient Tobacco Use Status: Never used Tobacco e-Cigarette/Vaping Use: Never Used Second Hand Smoke Exposure: No service: No Current occupational status: disabled Cognitive needs: Yes Hearing needs: No Vision needs: Yes Review of Systems Const Denies fatigue, Denies fever(s), Denies night sweats, Denies poor appetite and Denies weight loss Eyes Details: glasses Reports requires corrective lenses ENT Reports Normal hearing present, Denies dental pain, Denies dysphagia, Denies hearing loss, Denies mouth pain, Denies odynophagia, Denies throat swelling, Denies tongue swelling and Reports other (Dentition adequate) Card Reports no additional complaints Resp Reports no additional complaints GI Details: Denies abdominal pain, Denies melena, Reports bloating, Denies hematochezia, Reports constipation, Denies GI cramping, Denies dysphagia, Denies excessive flatus, Denies early satiety, Reports heartburn, Denies diarrhea, Denies nausea, Denies odynophagia, Denies vomiting and Denies hematemesis Skin/Breast Denies pruritus, Denies lesions, Denies rash and Denies jaundice Neuro Reports Normal hearing present and Denies Abnormal speech present Endo Denies fatigue Aller/Immun Denies throat swelling and Denies tongue swelling Physical Exam Vital Signs: Last Vital Signs Pulse 72 07/14/23 09:55 BP 155/69 H 07/14/23 09:55 BMI result Body Mass Index 31.5 Const General: cooperative, no acute distress, well developed and well groomed Nutritional Appearance: well nourished and obese Orientation/consciousness: oriented to person, oriented to place and oriented to time Limitations: language barrier, ambulation with cane and other limitations HEENT Head: Yes normocephalic and Yes atraumatic Eyes General: appearance normal, both eyes and all related structures Pupils: Equal, round and reactive pupils present Neck Neck: Yes normal visual inspection and Yes no lymphadenopathy Thyroid: Thyroid normal Resp Effort & Inspection: normal respiratory effort and able to speak in complete sentences Auscultation: clear to auscultation bilaterally Cardio Rate: regular rate Rhythm: regular rhythm Heart sounds: Normal, physiologic split S2 sound present Peripheral pulses: radial pulses present and posterior tibial pulses present GI Inspection: Yes distended, Yes Abdominal panniculus present and Yes obesity Palpation (GI): Soft to palpation, nontender, no guarding, not rigid and No hepatosplenomegaly present Percussion: Yes normal to percussion Auscultation: normal bowel sounds Rectal Exam - Female: deferred Skin General skin exam: no rashes or lesions noted, turgor normal, skin not dry, no jaundice, No spider nevi and no striae Rashes: no rashes Nails: normal Neuro General: oriented to person, oriented to place and oriented to time Cranial nerves: Yes Equal, round and reactive pupils present and Yes Normal hearing present Speech: No Abnormal speech present Extrem General: Yes normal to inspection, No clubbing, No cyanosis and No edema Psych Appearance: grossly normal and well kempt Mental Status: other Speech and movement: Normal speech and movement present Affect: normal affect Attitude: cooperative Thought process: Circumstantial thought process present and not confabulating Thought content: Normal thought content present Insight: Limited insight present (Psych) Judgement: Limited judgement present (Psych) Assessment & Plan Assessment & Plan (1) Gastroparesis: Code(s): K31.84 - Gastroparesis (2) Chronic idiopathic constipation: Code(s): K59.04 - Chronic idiopathic constipation (3) GERD (gastroesophageal reflux disease): Code(s): K21.9 - Gastro-esophageal reflux disease without esophagitis Qualifiers: Esophagitis presence: esophagitis presence not specified Qualified Code(s): K21.9 - Gastro-esophageal reflux disease without esophagitis Plan [place] #Breonna Hugo She is here today with her dtr who is the primary high court justice She developed a rash and itching after starting metformin after a dose increase. She also has been having diarrhea, so between the metformin increase s/e and the increase LInzess, this is not a good match. They will be seeing Dr. Yen to see if the diabetes meds should be changed. In the meantime, we will lower the LInzess dose. Her current GI regimen consists of famotidine at bedtime, Linzess 72 micro g, metoclopramide 5 mg 3 times a day, senna q.h.s. p.r.n. and simethicone. Return office visit in 3 weeks. Medications: New linaclotide (Linzess) 72 mcg PO QAM 30 caps 6RF Refilled simethicone 180 mg PO TID 90 caps 3RF On Hold linaclotide (Linzess) Hold Comment: Doctor's Order 145 mcg PO QAM 30 caps 3RF K59.04 - Chronic idiopathic constipation Quality Reporting (2019) Adult ([facility] 138//[id number]) Smoking risk assessment performed?: Yes Patient Tobacco Use Status: Never used Tobacco Coding Level of Care Code Est Pt Level 3 (39591) Diagnoses Gastroparesis K31.84 Chronic idiopathic constipation K59.04 Gastroesophageal reflux disease, unspecified whether esophagitis present K21.9 Esophagitis presence: esophagitis presence not specified
[2023-07-14 09:55] VITALS: BP 155/69; PULSE 72; BMI 31.5
== END 2023-07-14 10:23 | disposition home or self-care (01) ==
PROVIDERS: PCP Family Medicine; Visit Provider Nurse Practitioner
DX: K31.84 Gastroparesis (principal); K59.04 Chronic idiopathic constipation; K21.9 Gastro-esophageal reflux disease without esophagitis
CPT/HCPCS: 99213

== ENCOUNTER → 2023-07-14 09:38 | Outpatient (BNVA) | payer OTHER, SELFPAY | PROVIDERS: PCP Family Medicine; Visit Provider Nurse Practitioner | DX: K31.84 Gastroparesis (principal); K59.04 Chronic idiopathic constipation; K21.9 Gastro-esophageal reflux disease without esophagitis | CPT/HCPCS: 99212 ==

== ENCOUNTER 2023-08-01 09:29 | Outpatient (REF) | payer OTHER, SELFPAY | END 2023-08-01 09:30 | disposition home or self-care (01) | LOC: HO.SH 09:29 | PROVIDERS: Visit Provider Family Medicine | DX: Z01.118 Encounter for examination of ears and hearing with other abnormal findings (principal); H90.3 Sensorineural hearing loss, bilateral | CPT/HCPCS: 92557; 92567 ==

== ENCOUNTER 2023-08-05 09:05 | Outpatient (AMB) | payer OTHER, SELFPAY ==
--- NOTE | 2023-08-05 09:11 | A.OFFVIS_ITS ---
Intake Vital Signs 08/05/23 09:12 Height 5 ft 6 in Weight 196 lb 10.437 oz BMI 31.7 BP 197/79 H Blood Pressure Location Rt brachial Position Sitting Pulse 62 Intake Visit Reasons: 3 week follow up Intake Note: Patient in office today in 3 weeks follow up of [facility]. CC:Patient reports that she lynn diarrhea and urgency with Linzess. She also reports nausea. 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 Accompanied by: Daughter Allergies JERMAINE Inhibitors [JERMAINE INHIBITORS] Adverse Reaction (Intermediate, Verified 08/05/23 09:27) COUGH lactose [LACTOSE] Adverse Reaction (Intermediate, Verified 08/05/23 09:27) GI DISCOMFORT HPI 3 week follow up HPI Details Assessment & Plan (1) Gastroparesis: Code(s): K31.84 - Gastroparesis (2) Chronic idiopathic constipation: Code(s): K59.04 - Chronic idiopathic constipation (3) GERD (gastroesophageal reflux diseas e): Code(s): K21.9 - Gastro-esophageal reflux disease without esophagitis Qualifiers: Esophagitis presence: esophagitis presence not specified Qualified Code(s): K21.9 - Gastro-esophageal reflux disease without esophagitis Medications: New linaclotide (Linze ss) 72 mcg PO QAM 30 caps 6RF Refilled simethicone 180 mg PO TID 90 caps 3RF On Hold linaclotide (Linze ss) Hold Commen t: Doctor's Order 145 mcg PO QAM 30 caps 3RF K59.04 - Chronic i diopathic constipa tion [place] #Breonna Live She is here today with her dtr who is the primary military science teacher She developed a rash and itching after starting metformin after a dose increase. She also has been having diarrhea, so between the metformin increase s/e and the increase LInzess, this is not a good match. They will be seeing Dr. Yen to see if the diabetes meds should be changed. In the meantime, we will lower the LInzess dose. TODAY'S VISIT [place] #Nay Live She is here with a female family member who is the primary military science teacher. They feel that the new LInzess 72mcg dose is helping well. So now her current GI regimen consists of famotidine 40 mg at bedtime, Linzess 72 micro g a day, magnesium oxide 250 mg twice a day, metoclopramide 5 mg 3 times a day, senna 2 tabs p.o. twice a day and simethicone 180 mg 3 times a day. With this she is now satisfied with her GI regimen and control. 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 Mother Diabetes mellitus Heart disease Social History Household Members: Family and None Household Members Other:: Kajal Menendez [phone] Housing: Apartment Alcohol intake: never Patient Tobacco Use Status: Never used Tobacco e-Cigarette/Vaping Use: Never Used Second Hand Smoke Exposure: No service: No Current occupational status: disabled Cognitive needs: Yes Hearing needs: No Vision needs: Yes Review of Systems Const Denies fatigue, Denies fever(s), Denies night sweats, Denies poor appetite and Denies weight loss ENT Reports Normal hearing present, Denies dental pain, Denies dysphagia, Denies hearing loss, Denies mouth pain, Denies odynophagia, Denies throat swelling, Denies tongue swelling and Reports other (Dentition adequate) Card Reports no additional complaints Resp Reports no additional complaints GI Details: Denies abdominal pain, Denies melena, Reports bloating, Denies hematochezia, Reports constipation, Denies GI cramping, Denies dysphagia, Denies excessive flatus, Reports early satiety, Reports heartburn, Denies diarrhea, Denies nausea, Denies odynophagia, Denies vomiting and Denies hematemesis Skin/Breast Denies pruritus, Denies lesions, Denies rash and Denies jaundice Neuro Reports Normal hearing present and Denies Abnormal speech present Endo Denies fatigue Aller/Immun Denies throat swelling and Denies tongue swelling Physical Exam Vital Signs: Last Vital Signs Pulse 62 08/05/23 09:12 BP 197/79 H 08/05/23 09:12 BMI result Body Mass Index 31.7 Const General: cooperative, no acute distress, well developed and well groomed Nutritional Appearance: well nourished and obese Orientation/consciousness: oriented to person, oriented to place and oriented to time Limitations: language barrier HEENT Head: Yes normocephalic and Yes atraumatic Eyes General: appearance normal, both eyes and all related structures Pupils: Equal, round and reactive pupils present Neck Neck: Yes normal visual inspection and Yes no lymphadenopathy Thyroid: Thyroid normal Resp Effort & Inspection: normal respiratory effort and able to speak in complete sentences Auscultation: clear to auscultation bilaterally Cardio Rate: regular rate Rhythm: regular rhythm Heart sounds: Normal, physiologic split S2 sound present Peripheral pulses: radial pulses present and posterior tibial pulses present GI Inspection: No distended, No Abdominal panniculus present and Yes obesity Palpation (GI): Soft to palpation, nontender, no guarding, not rigid and No hepatosplenomegaly present Percussion: Yes normal to percussion Auscultation: normal bowel sounds Rectal Exam - Female: deferred Skin General skin exam: no rashes or lesions noted, turgor normal, skin not dry, no jaundice, No spider nevi and no striae Rashes: no rashes Nails: normal Neuro General: oriented to person, oriented to place and oriented to time Cranial nerves: Yes Equal, round and reactive pupils present and Yes Normal hearing present Speech: No Abnormal speech present Extrem General: Yes normal to inspection, No clubbing, No cyanosis and No edema Psych Appearance: grossly normal and well kempt Mental Status: mental status grossly normal Speech and movement: Normal speech and movement present Affect: normal affect Attitude: cooperative Thought process: Normal thought process present and not confabulating Thought content: Normal thought content present Insight: Limited insight present (Psych) Judgement: Limited judgement present (Psych) Assessment & Plan Assessment & Plan (1) Gastroparesis: Code(s): K31.84 - Gastroparesis (2) Chronic idiopathic constipation: Code(s): K59.04 - Chronic idiopathic constipation (3) GERD (gastroesophageal reflux disease): Code(s): K21.9 - Gastro-esophageal reflux disease without esophagitis Qualifiers: Esophagitis presence: esophagitis presence not specified Qualified Code(s): K21.9 - Gastro-esophageal reflux disease without esophagitis Plan [place] #Nay Live She is here with a female family member who is the primary military science teacher. They feel that the new LInzess 72mcg dose is helping well. So now her current GI regimen consists of famotidine 40 mg at bedtime, Linzess 72 micro g a day, magnesium oxide 250 mg twice a day, metoclopramide 5 mg 3 times a day, senna 2 tabs p.o. twice a day and simethicone 180 mg 3 times a day. With this she is now satisfied with her GI regimen and control. Return office visit in 6 months Quality Reporting (2019) Adult ([facility] 138/07/14/68) Smoking risk assessment performed?: Yes Patient Tobacco Use Status: Never used Tobacco Coding Level of Care Code Est Pt Level 3 (25529) Diagnoses Gastroparesis K31.84 Chronic idiopathic constipation K59.04 Gastroesophageal reflux disease, unspecified whether esophagitis present K21.9 Esophagitis presence: esophagitis presence not specified
[2023-08-05 09:12] VITALS: BP 197/79; PULSE 62; BMI 31.7
== END 2023-08-05 09:49 | disposition home or self-care (01) ==
PROVIDERS: PCP Family Medicine; Visit Provider Nurse Practitioner
DX: K31.84 Gastroparesis (principal); K59.04 Chronic idiopathic constipation; K21.9 Gastro-esophageal reflux disease without esophagitis
CPT/HCPCS: 99213

== ENCOUNTER → 2023-08-05 09:05 | Outpatient (BNVA) | payer OTHER, SELFPAY | PROVIDERS: PCP Family Medicine; Visit Provider Nurse Practitioner | DX: K31.84 Gastroparesis (principal); K59.04 Chronic idiopathic constipation; K21.9 Gastro-esophageal reflux disease without esophagitis; Z79.899 Other long term (current) drug therapy | CPT/HCPCS: 99212 ==

== ENCOUNTER 2023-08-11 10:03 | Inpatient (IN) | payer OTHER, SELFPAY ==
[2023-08-11] VITALS (13 sets, daily range): BP systolic 143–215; BP diastolic 46–81; PULSE 57–66; RESP 13–20; TEMP 36.3–36.8; O2SAT 96–100; BMI 37.8; BMI 32.7
--- NOTE | ~2023-08-11 | XR_ITS ---
EXAMINATION: XR CHEST CLINICAL INFORMATION: Weakness COMPARISON: Prior chest April 2023 TECHNIQUE: Frontal view of the chest was obtained. FINDINGS: No significant abnormality is noted involving the heart, lungs, mediastinum, bony thorax or soft tissues. XR/XR chest 1V IMPRESSION: No acute disease.
--- NOTE | ~2023-08-11 | CT_ITS ---
EXAMINATION: CTA head and neck with contrast stroke CLINICAL INFORMATION: Left-sided deficits COMPARISON: None available. TECHNIQUE: Test bolus sequences followed by intravenous administration of 70 mL of Omnipaque 350 contrast. Helical imaging was performed in the axial plane from the skull vertex to the thoracic inlet. Delayed postcontrast imaging of the head was also performed. The data was processed at the instrument technologist workstation for generation of MIP sequences. Angled MIPs and volume rendered reformatted images were also generated at an offline 3D workstation. Stenoses are assessed in accordance with NASCET criteria unless otherwise indicated. This CT examination was performed using dose optimization techniques as appropriate, variously including the following: *Automated exposure control *Adjustment of mA and/or kV according to patient size (this includes techniques or standardized protocols for targeted exams where dose is matched to indication/reason for exam; i.e. extremities or head) *Use of iterative reconstruction technique DLP: 1495 mGy-cm FINDINGS: CTA NECK: Three-vessel aortic arch. The innominate and bilateral subclavian arteries are patent. The origins and cervical segments of the common carotid arteries are patent bilaterally. The common carotid artery bifurcations demonstrate mural calcifications extending into the proximal segments of the cervical internal carotid arteries without significant stenosis. The remaining segments of the cervical internal carotid arteries are patent bilaterally. The origins and cervical segments of the vertebral arteries are patent bilaterally. No hemodynamically significant stenosis, dissection, or aneurysm. The visualized branches of the external carotid arteries are unremarkable. CTA HEAD: Mild to moderate atherosclerotic calcifications of the bilateral carotid siphons. Anterior circulation: The petrous, cavernous, and supraclinoid segments of the internal carotid arteries are patent bilaterally. The major branches of the anterior and middle cerebral arteries as well as the anterior communicating artery complex are patent. 1 mm likely infundibulum along the right supraclinoid ICA (series 5 3, image 207 of 503). No large vessel occlusion, saccular aneurysm, or dissection. Posterior circulation: The intracranial vertebral arteries are patent bilaterally. The basilar artery is normal in course and caliber. The basilar artery is normal in course and caliber. The posterior cerebral and superior cerebellar arteries arise normally from the basilar summit. No aneurysm. On delayed imaging, the venous structures demonstrate normal contrast opacification. No filling defect. No abnormal intraparenchymal enhancement. Soft tissues: No suspicious neck mass or cervical adenopathy. Lungs: Bilateral atelectasis. Calcified nodule in the left upper lobe, likely a granuloma. Bones: No acute osseous abnormality. No lytic or blastic osseous lesions. Multilevel degenerative changes of the visualized spine. CT/CT angio head neck stroke IMPRESSION: CTA head demonstrates no large vessel occlusion, saccular aneurysm, or dissection. CTA neck demonstrates no hemodynamically significant stenosis, dissection, or aneurysm.
--- NOTE | ~2023-08-11 | CT_ITS ---
EXAMINATION: CT HEAD W/O IV CONTRAST CT CERVICAL SPINE W/O IV CONTRAST CLINICAL INFORMATION: Head and neck trauma. COMPARISON: 05/19/2023. TECHNIQUE: Head - Contiguous axial imaging of the head was performed from the skull base to the vertex without the administration of intravenous contrast, and axial images are reconstructed at 2 mm and 5 mm slice thickness. Cervical spine - A volumetric, helical CT acquisition of the cervical spine was obtained without contrast; in addition to the standard set of axial images, multiplanar reformatted images were provided in the coronal and sagittal imaging planes. This CT examination was performed using dose optimization techniques as appropriate, variously including the following: *Automated exposure control *Adjustment of mA and/or kV according to patient size (this includes techniques or standardized protocols for targeted exams where dose is matched to indication/reason for exam; i.e. extremities or head) *Use of iterative reconstruction technique DLP: 1368 mGy-cm (total) FINDINGS: HEAD: No intracranial hemorrhage. No evidence of an acute major vascular territory infarction. Adams-white matter differentiation is maintained. Scattered and partially confluent hypoattenuation in the periventricular and deep white matter is consistent with sequela of chronic microangiopathy. Proportional prominence of the ventricles and sulcal spaces without evidence of obstructive hydrocephalus. No abnormal mass effect or midline shift. No extra-axial fluid collections. Atherosclerotic calcification of the cavernous carotid and vertebral arteries. The paranasal sinuses are well aerated and without air-fluid levels. The mastoid air cells are clear. Prior ocular lens extractions. Chronic degenerative arthropathy with intra-articular calcific densities of temporomandibular joints, and chronic anterior subluxation at the left TMJ. No calvarial fracture or scalp hematoma. CERVICAL SPINE: The craniocervical junction is normal. The cervical vertebra have well preserved height and alignment. No fracture, subluxation or prevertebral edema. No soft tissue hematoma. Chronic multilevel degenerative narrowing of disc spaces and vertebral osteophyte formation. Posterior disc-osteophyte complexes cause mild narrowing of the central spinal canal at C5-C6 and C6-C7. There is uncovertebral joint hypertrophy at C5-C6 and C6-C7 and this results in mild right and moderate left neural foraminal stenosis at C5-C6 and mild bilateral foraminal stenosis at C6-C7. Thyroid gland is grossly normal. The partially visualized lung apices are unremarkable. CT/CT cervical spine wo IV con IMPRESSION: * No evidence of intracranial hemorrhage or other acute pathology compared to 05/11/2023. * Patchy hypoattenuation within supratentorial white matter is compatible with sequela of chronic microangiopathy (i.e., leukoaraiosis). * No evidence of acute fracture or traumatic subluxation of the moderately degenerated cervical spine.
--- NOTE | ~2023-08-11 | MR_ITS ---
MR BRAIN WITHOUT CONTRAST CLINICAL INFORMATION: Altered mental status. Left-sided weakness. Evaluate for stroke. COMPARISON: CTA head and neck 08/11/2023. TECHNIQUE: MRI of the brain was obtained using routine sequences without contrast. FINDINGS: There is no hydrocephalus, extra-axial surface collection, or herniation. There is a 1.9 cm acute infarct involving the right thalamus and posterior limb of the right internal capsule. There is no mass effect and there is no hemorrhagic transformation. There is moderate chronic microangiopathy. The major flow voids at the skull base are preserved. There is no intracranial hemorrhage on the gradient recalled echo acquisition. The midline structures are normal. The cerebellar tonsils are normally positioned. The cerebellum and brainstem are normal. The craniocervical junction is normal. Advanced degenerative changes involving the left TMJ. There is also a large left TMJ joint effusion. 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 There is no mass effect and there is no hemorrhagic transformation. - Moderate chronic microangiopathy. - Advanced degenerative changes involving the left TMJ. There is also a large left TMJ joint effusion.
--- NOTE | 2023-08-11 10:12 | ECG_ITS ---
Test Reason : FALL Blood Pressure : / mmHG Vent. Rate : 061 BPM Atrial Rate : 061 BPM P-R Int : 152 ms QRS Dur : 090 ms QT Int : 456 ms P-R-T Axes : 033 007 028 degrees QTc Int : 459 ms Normal sinus rhythm with sinus arrhythmia Minimal voltage criteria for LVH, may be normal variant ( [place] product ) Borderline ECG When compared with ECG of 19-MAY-2023 11:41, No significant change was found Referred By: Jamia Bautista Electronically Signed By:CARON DOMINGUEZ
--- NOTE | 2023-08-11 10:20 | ED.AMS ---
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 Her blood sugar device was red and looked like it read low overnight but EMS noted 220 on their arrival. This has happened before to the patient in the past x 3 due to hypoglycemia. The patient was altered and not herself and the daughter could not wake her up. MD complaint: altered mental status Timing confirmed by: family member Severity: moderate Consistency of symptoms: constant Context: diabetes Associated symptoms: other (confusion) Treatments prior to arrival: other (BS 220 by EMS) Related Data Home Medications Medication Instructions Recorded Confirmed citalopram 20 mg tablet 20 mg PO DAILY 04/09/20 04/28/23 lancets 33 gauge #100 ea 04/09/20 04/28/23 pen needle, diabetic 32 gauge x #50 ea 04/09/20 04/28/23 acetaminophen 650 mg 650 mg PO Q8H PRN moderate pain 09/15/22 04/28/23 tablet,extended release chlorhexidine gluconate 0.12 % ml PO 09/15/22 04/28/23 mouthwash Previous Rx's Medication Instructions Recorded sennosides 8.6 mg tablet (Whit-chitra) 17.2 mg (2 x 8.6 mg) PO BID 06/18/20 constipation 30 days #120 tabs hydroxyzine HCl 25 mg tablet 25 mg PO BID PRN itching 30 days 08/12/20 #60 tabs compr.stocking,knee,long,large #12 ea 10/16/20 diabetic shoes with 3 inserts #3 ea 12/31/20 blood-glucose meter (FreeStyle #1 ea 12/11/21 Precision En Meter) quetiapine 50 mg tablet 50 mg PO QAM 90 days #90 tabs 12/21/21 risperidone 1 mg tablet 1 mg PO QAM 90 days #90 tabs 12/21/21 ondansetron 4 mg disintegrating 4 mg PO Q8H PRN nausea and 08/10/22 tablet vomiting 7 days #21 tabs ascorbic acid (vitamin C) 500 mg 500 mg PO DAILY #30 tabs 08/16/22 tablet (Vitamin C) apixaban 5 mg tablet (Eliquis) 5 mg PO BID 90 days #180 tabs 08/26/22 metoprolol succinate 100 mg 100 mg PO DAILY 90 days #90 tabs 11/17/22 tablet,extended release 24 hr (Toprol XL) lancets 33 gauge (TRUEplus Lancets) ##100 11/22/22 flash glucose scanning reader #1 ea 12/06/22 (FreeStyle [place] 2 [place]) cane #1 ea 12/15/22 insulin lispro 100 unit/mL 35 unit (0.35 mL) subcut TID 30 12/15/22 subcutaneous pen (Humalog Kwik days #31.5 mL (U-100) Insulin) pen needle, diabetic 32 gauge x #200 ea 03/01/23 (UltiCare Pen Needle) linaclotide 145 mcg capsule 145 mcg PO QAM #30 caps 03/24/23 (Linzess) cholecalciferol (vitamin D3) 25 25 mcg PO DAILY #30 caps 03/25/23 mcg (1,000 unit) capsule (Vitamin D3) amlodipine 5 mg tablet 5 mg PO DAILY 90 days #90 tabs 04/03/23 magnesium oxide 250 mg PO BID #180 tabs 04/03/23 valsartan 320 mg tablet 320 mg PO DAILY #90 tabs 04/03/23 blood sugar diagnostic (FreeStyle #100 strips 04/08/23 Precision En Strips) flash glucose sensor (FreeStyle #2 kits 04/12/23 Carola 2 Sensor kit) tamoxifen 20 mg tablet 20 mg PO DAILY #30 tabs 05/05/23 famotidine 40 mg tablet 40 mg PO BEDTIME #30 tabs 06/23/23 metoclopramide HCl 5 mg tablet 5 mg PO TID #90 tabs 06/23/23 atorvastatin 40 mg tablet 40 mg PO DAILY #90 tabs 07/04/23 ferrous sulfate 325 mg (65 mg 325 mg PO DAILY 90 days #90 tabs 07/04/23 iron) tablet linaclotide 72 mcg capsule 72 mcg PO QAM #30 caps 07/14/23 (Linzess) simethicone 180 mg capsule 180 mg PO TID #90 caps 07/14/23 insulin glargine U-300 conc 300 87 unit (0.29 mL) subcut DAILY 30 08/09/23 unit/mL (3 mL) subcutaneous pen days #8.7 mL (Toujeo Max U-300 SoloStar) Allergies Allergy/AdvReac Type Severity Reaction Status Date / Time JERMAINE Inhibitors AdvReac Intermediate COUGH Verified 08/05/23 09:27 [JERMAINE INHIBITORS] lactose [LACTOSE] AdvReac Intermediate GI Verified 08/05/23 09:27 DISCOMFORT Review of Systems Review of Systems: ROS unable to be obtained due to altered mental status [facility] Past Medical History Attestation statement: The following information was validated with the patient. 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 Mother Diabetes mellitus Heart disease Social History Social History Household Members: Family and None Household Members Other:: Kajal Menendez [phone] Housing: Apartment Alcohol intake: never Patient Tobacco Use Status: Never used Tobacco Smoked in Last 30 Days: No e-Cigarette/Vaping Use: Never Used Second Hand Smoke Exposure: No Use of substances other than those prescribed or required for medical reasons: No Advance Directives: No service: No Current occupational status: disabled Cognitive needs: Yes Hearing needs: No Vision needs: Yes Physical Exam ED Vital Signs: Vital Signs - 24 hr 08/11/23 10:11 08/11/23 10:46 08/11/23 11:05 Temperature 97.6 F 97.9 F Pulse Rate 63 58 60 Respiratory Rate 16 16 17 Blood Pressure 146/64 H 215/73 H 166/49 H Pulse Oximetry 98 97 98 Oxygen Delivery Method Room Air Room Air Room Air 08/11/23 11:51 08/11/23 14:39 08/11/23 15:04 Temperature Pulse Rate 62 65 Respiratory Rate 17 17 Blood Pressure 189/60 H 209/67 H 214/59 H Pulse Oximetry 98 100 Oxygen Delivery Method Room Air Room Air BMI result Body Mass Index 37.8 Appearance: Somnolent but woken with tactile stimuli, confused not really taking. Moderate acute distress. Eyes: Pupils equal, round and reactive to light. ENT: Pharynx normal. drooling left side of mouth no oral injury noted Neck: Normal inspection. Neck supple. CVS: irregular heart rate and rhythm. Pulses normal. Respiratory: No respiratory distress. Breath sounds normal. able to cough Abdomen: Soft and nontender. Skin: Skin warm and dry. Normal skin color. Normal skin turgor. Extremities: No lower extremity edema. No calf ttp Neuro: not participating not speaking, drooling NIH Stroke Scale Internal: Other (after patient woke up) Time: 13:40 Level of Consciousness: Not Alert; but arousable by minor stimulation Level of Consciousness Questions: Answers neither question correctly Level of Consciousness Commands: Performs neither task correctly Best Gaze: Normal Visual: No visual loss Facial Palsy: Minor paralyis Motor Arm (Right): No drift Motor Arm (Left): Some effort against gravity Motor Leg (Right): No drift Motor Leg (Left): Some effort against gravity Limb Ataxia: Absent Sensory: Normal Best Language: Mild to moderate aphasia Dysarthia: Mild to moderate dysarthria Extinction and Inattention: Visual, tactile, auditory, spatial, or personal inattention Score: 13 Course Course Course Narrative: negative lactic acid, no WBC count afebrile no signs of infection at this time Reevaluation(s) Reevaluation #1: patient more awake 136pm finally able to do full neuro exam slurred speech, drooling L sided arm and L leg weakness - sent for CTA last known well yesterday evening/afternoon per daughter Reevaluation #2: aspirin held given eliquis use failed swallow eval Medications Administered Discontinued Medications Generic Name Dose Route Start Last Admin Trade Name Antonia PRN Reason Stop Dose Admin Iohexol 70 ml 08/11/23 14:03 08/11/23 14:03 Iohexol 350 Mg/Ml 75 Ml Infus..Btl IV 08/11/23 14:04 70 ml ONCE ONE Administration Medical Decision Making Medical Decision Making [facility] Narrative: 77 yo female with CKD, gastroparesis, DM, dementia, PAF on eliquis, HLD, HTN, HLD here with AMS and being found down by daughter she is altered last known well yesterday evening, drooling she is not able to participate in neurologic exam. She is drooling. She is on thinners at this time possible syncope, ICH, encephalopathy, med related, dementia,seizure given drooling on arrival, infectious or metabolic workup - labs, CT scans, CXR, toxic and metabolic workup. Daughter denies hx of seizures. Does not have gas in the home. Differential Diagnosis Differential Diagnoses: The differential diagnosis associated with the presentation includes syncope, seizure, stroke, encephalopathy, CO2 narcosis, ICH Admission/Observation Consideration of admission/observation: Escalation of care including admission/observation considered not at baseline still with negative work up will admit for encephalopathy Consult Healthcare Provider Management of the patient was discussed with: Hospitalist (will admit) Lab Data [facility] Lab Attestation statement: I reviewed the patient's lab results. 08/11/23 10:28 08/11/23 10:28 Labs: Lab Results 08/11/23 08/11/23 08/11/23 Range/Units 10:23 10:28 10:33 WBC 10.6 (4.8-10.8) X10*3/uL RBC 3.91 L (4.20-5.50) X10*6/uL Hgb 11.4 L (12.0-16.0) g/dl Hct 33.4 L (37.0-47.0) % MCV 85.4 (80.0-98.0) fL MCH 29.2 (27.0-33.0) pg MCHC 34.1 (31.0-35.0) g/dl RDW 12.9 (11.0-16.0) % Plt Count 248 (160-400) X10*3/uL MPV 10.9 (9.4-12.3) fL Immature Gran % (Auto) 0.4 (0.0-0.4) % Neut % (Auto) 78.5 H (45-73) % Lymph % (Auto) 15.6 L (20-40) % [place] % (Auto) 4.3 (2-11) % Eos % (Auto) 0.9 (0-4) % Baso % (Auto) 0.3 (0-2) % Lymph # (Auto) 1.7 (1.2-4.9) X10*3/uL [place] # (Auto) 0.5 (0.1-1.2) X10*3/uL Eos # (Auto) 0.1 (0.0-0.4) X10*3/uL Baso # (Auto) 0.0 (0.0-0.2) X10*3/uL Abs Immat Gran (auto) 0.04 H (0.00-0.03) X10*3/uL Absolute Neuts (auto) 8.3 (2.0-8.3) x10*3/uL Absolute Nucleated RBC 0.000 (0.0-0.012) X10*3/uL Nucleated RBC % (auto) 0.0 (0.0-0.2) /100WBC Hold Purple Top SEE NOTE Hold Blue Top SEE NOTE VBG pH 7.46 H (7.32-7.43) VBG pCO2 33 mmHg VBG pO2 57 mmHg VBG HCO3 24 (22-26) mmol/L VBG O2 Saturation 88.0 % VBG Base Excess 1.2 mmol/L Sodium 141 (135-145) mmol/L Potassium 4.8 (3.3-5.1) mmol/L Chloride 107 (96-108) mmol/L Carbon Dioxide 26 (22-29) mmol/L Anion Gap 13 (12-20) BUN 22 H (9-16) mg/dL Creatinine 1.19 (0.5-1.4) mg/dL Estim Creat Clear Calc 45.4 Estimated GFR 44 POC Glucose (60-115) mg/dL Random Glucose 217 H (60-115) mg/dL Lactic Acid 1.8 (0.5-2.0) mmol/L Calcium 9.8 (8.4-10.2) mg/dL Magnesium 1.8 (1.6-2.6) mg/dL Total Bilirubin 0.3 (0.0-1.0) mg/dL Direct Bilirubin 0.1 (0.0-0.5) mg/dL AST 23 (5-31) U/L ALT 23 (0-31) U/L Alkaline Phosphatase 82 (39-117) U/L Ammonia (13-55) umol/L Total Creatine Kinase 17 L (26-140) U/L Troponin I High Sens < 2.7 (<3.5-17.0) ng/L B-Natriuretic Peptide 42 (<100) pg/mL Total Protein 7.1 (6.5-8.0) g/dL Albumin 3.4 L (3.5-5.0) g/dL TSH 3.56 (0.32-4.0) uIU/mL Urine Color Urine Appearance Urine pH (5.0-9.0) Ur Specific [place] (1.005-1.025) Urine Protein (Neg-Trace) mg/dL Urine Glucose (UA) (Negative) mg/dL Urine Ketones (Negative) mg/dL Urine Blood (Negative) Urine Nitrite (Negative) Ur Leukocyte Esterase (Negative) Urine RBC (0-2) /HPF Urine WBC (0-5) /HPF Ur Squamous Epith Cells (0-2) /HPF Urine Bacteria (None Seen) Hyaline Casts (0-2) /LPF Stool Occult Blood (NEGATIVE) Urine Opiates Screen (Not Detect) Urine Fentanyl Screen (Not Detect) Ur Barbiturates Screen (Not Detect) Ur Phencyclidine Scrn (Not Detect) Ur Amphetamines Screen (Not Detect) U Benzodiazepines Scrn (Not Detect) Urine Cocaine Screen (Not Detect) U Marijuana (THC) Screen (Not Detect) Influenza Type A (PCR) (Negative) Influenza Type B (PCR) (Negative) RSV RNA Qual (PCR) (Negative) SARS-CoV-2 RNA (RT-PCR) (Negative) 08/11/23 08/11/23 08/11/23 Range/Units 10:37 11:02 11:08 WBC (4.8-10.8) X10*3/uL RBC (4.20-5.50) X10*6/uL Hgb (12.0-16.0) g/dl Hct (37.0-47.0) % MCV (80.0-98.0) fL MCH (27.0-33.0) pg MCHC (31.0-35.0) g/dl RDW (11.0-16.0) % Plt Count (160-400) X10*3/uL MPV (9.4-12.3) fL Immature Gran % (Auto) (0.0-0.4) % Neut % (Auto) (45-73) % Lymph % (Auto) (20-40) % [place] % (Auto) (2-11) % Eos % (Auto) (0-4) % Baso % (Auto) (0-2) % Lymph # (Auto) (1.2-4.9) X10*3/uL [place] # (Auto) (0.1-1.2) X10*3/uL Eos # (Auto) (0.0-0.4) X10*3/uL Baso # (Auto) (0.0-0.2) X10*3/uL Abs Immat Gran (auto) (0.00-0.03) X10*3/uL Absolute Neuts (auto) (2.0-8.3) x10*3/uL Absolute Nucleated RBC (0.0-0.012) X10*3/uL Nucleated RBC % (auto) (0.0-0.2) /100WBC Hold Purple Top Hold Blue Top VBG pH (7.32-7.43) VBG pCO2 mmHg VBG pO2 mmHg VBG HCO3 (22-26) mmol/L VBG O2 Saturation % VBG Base Excess mmol/L Sodium (135-145) mmol/L Potassium (3.3-5.1) mmol/L Chloride (96-108) mmol/L Carbon Dioxide (22-29) mmol/L Anion Gap (12-20) BUN (9-16) mg/dL Creatinine (0.5-1.4) mg/dL Estim Creat Clear Calc Estimated GFR POC Glucose 195 H (60-115) mg/dL Random Glucose (60-115) mg/dL Lactic Acid (0.5-2.0) mmol/L Calcium (8.4-10.2) mg/dL Magnesium (1.6-2.6) mg/dL Total Bilirubin (0.0-1.0) mg/dL Direct Bilirubin (0.0-0.5) mg/dL AST (5-31) U/L ALT (0-31) U/L Alkaline Phosphatase (39-117) U/L Ammonia 18 (13-55) umol/L Total Creatine Kinase (26-140) U/L Troponin I High Sens (<3.5-17.0) ng/L B-Natriuretic Peptide (<100) pg/mL Total Protein (6.5-8.0) g/dL Albumin (3.5-5.0) g/dL TSH (0.32-4.0) uIU/mL Urine Color Yellow Urine Appearance Clear Urine pH 6.0 (5.0-9.0) Ur Specific [place] 1.010 (1.005-1.025) Urine Protein 300 (3+) H (Neg-Trace) mg/dL Urine Glucose (UA) Negative (Negative) mg/dL Urine Ketones Negative (Negative) mg/dL Urine Blood Negative (Negative) Urine Nitrite Negative (Negative) Ur Leukocyte Esterase Negative (Negative) Urine RBC 0-2 (0-2) /HPF Urine WBC 0-5 (0-5) /HPF Ur Squamous Epith Cells 0-2 (0-2) /HPF Urine Bacteria None Seen (None Seen) Hyaline Casts 0-2 (0-2) /LPF Stool Occult Blood NEGATIVE (NEGATIVE) Urine Opiates Screen Not Detected (Not Detect) Urine Fentanyl Screen Not Detected (Not Detect) Ur Barbiturates Screen Not Detected (Not Detect) Ur Phencyclidine Scrn Not Detected (Not Detect) Ur Amphetamines Screen Not Detected (Not Detect) U Benzodiazepines Scrn Not Detected (Not Detect) Urine Cocaine Screen Not Detected (Not Detect) U Marijuana (THC) Screen Not Detected (Not Detect) Influenza Type A (PCR) NEGATIVE (Negative) Influenza Type B (PCR) NEGATIVE (Negative) RSV RNA Qual (PCR) NEGATIVE (Negative) SARS-CoV-2 RNA (RT-PCR) NEGATIVE (Negative) 08/11/23 Range/Units 14:40 WBC (4.8-10.8) X10*3/uL RBC (4.20-5.50) X10*6/uL Hgb (12.0-16.0) g/dl Hct (37.0-47.0) % MCV (80.0-98.0) fL MCH (27.0-33.0) pg MCHC (31.0-35.0) g/dl RDW (11.0-16.0) % Plt Count (160-400) X10*3/uL MPV (9.4-12.3) fL Immature Gran % (Auto) (0.0-0.4) % Neut % (Auto) (45-73) % Lymph % (Auto) (20-40) % [place] % (Auto) (2-11) % Eos % (Auto) (0-4) % Baso % (Auto) (0-2) % Lymph # (Auto) (1.2-4.9) X10*3/uL [place] # (Auto) (0.1-1.2) X10*3/uL Eos # (Auto) (0.0-0.4) X10*3/uL Baso # (Auto) (0.0-0.2) X10*3/uL Abs Immat Gran (auto) (0.00-0.03) X10*3/uL Absolute Neuts (auto) (2.0-8.3) x10*3/uL Absolute Nucleated RBC (0.0-0.012) X10*3/uL Nucleated RBC % (auto) (0.0-0.2) /100WBC Hold Purple Top Hold Blue Top VBG pH (7.32-7.43) VBG pCO2 mmHg VBG pO2 mmHg VBG HCO3 (22-26) mmol/L VBG O2 Saturation % VBG Base Excess mmol/L Sodium (135-145) mmol/L Potassium (3.3-5.1) mmol/L Chloride (96-108) mmol/L Carbon Dioxide (22-29) mmol/L Anion Gap (12-20) BUN (9-16) mg/dL Creatinine (0.5-1.4) mg/dL Estim Creat Clear Calc Estimated GFR POC Glucose 201 H (60-115) mg/dL Random Glucose (60-115) mg/dL Lactic Acid (0.5-2.0) mmol/L Calcium (8.4-10.2) mg/dL Magnesium (1.6-2.6) mg/dL Total Bilirubin (0.0-1.0) mg/dL Direct Bilirubin (0.0-0.5) mg/dL AST (5-31) U/L ALT (0-31) U/L Alkaline Phosphatase (39-117) U/L Ammonia (13-55) umol/L Total Creatine Kinase (26-140) U/L Troponin I High Sens (<3.5-17.0) ng/L B-Natriuretic Peptide (<100) pg/mL Total Protein (6.5-8.0) g/dL Albumin (3.5-5.0) g/dL TSH (0.32-4.0) uIU/mL Urine Color Urine Appearance Urine pH (5.0-9.0) Ur Specific [place] (1.005-1.025) Urine Protein (Neg-Trace) mg/dL Urine Glucose (UA) (Negative) mg/dL Urine Ketones (Negative) mg/dL Urine Blood (Negative) Urine Nitrite (Negative) Ur Leukocyte Esterase (Negative) Urine RBC (0-2) /HPF Urine WBC (0-5) /HPF Ur Squamous Epith Cells (0-2) /HPF Urine Bacteria (None Seen) Hyaline Casts (0-2) /LPF Stool Occult Blood (NEGATIVE) Urine Opiates Screen (Not Detect) Urine Fentanyl Screen (Not Detect) Ur Barbiturates Screen (Not Detect) Ur Phencyclidine Scrn (Not Detect) Ur Amphetamines Screen (Not Detect) U Benzodiazepines Scrn (Not Detect) Urine Cocaine Screen (Not Detect) U Marijuana (THC) Screen (Not Detect) Influenza Type A (PCR) (Negative) Influenza Type B (PCR) (Negative) RSV RNA Qual (PCR) (Negative) SARS-CoV-2 RNA (RT-PCR) (Negative) Independent Interpretation I performed an independent interpretation of an: EKG, Plain X-Ray (no pneumonia) and CT Scan (no ICH, no LVO) Interpretation: Rate: 61 Rhythm: NSR [place]: left, LVH Normal P waves. Normal PIERRE. Normal QRS complex. ST T wave : no ELAINE, normal qTC: 459 prior studies: no acute ischemia The study has been interpreted contemporaneously by me. . Independent Historian Clinical information obtained from an independent historian. History obtained from or confirmed by: EMS and Other (daughter) External Record Review External record reviewed: Inpatient record Critical Care Time Critical Care Time Critical Care Time: Yes Total Critical Care Time: 45 Attestation: repeat assessments, CTA stroke protocol, family discussions, admission I attest to this time spent taking care of the patient Discharge Plan Discharge Clinical Impression: Encephalopathy acute, Left-sided weakness Patient Disposition: Admitted As Inpatient
--- NOTE | 2023-08-11 10:33 | PC.NURSE ---
patient placed in bed 6 with tele monitoring, VSS, endtidal 32. IV placed in the right AC 20#. patient is somnolent, awakens to painful stimuli, patient drooling
[2023-08-11 10:38] LABS: Venous Blood Gas Refer to POC result
[2023-08-11 10:39] LABS: MANUAL DIFF FLAG NO
[2023-08-11 10:40] LABS: VBG Base Excess 1.2 mmol/L; VBG HCO3 24 mmol/L (22-26); VBG pCO2 33 mmHg; VBG pH 7.46 (7.32-7.43); VBG pO2 57 mmHg
[2023-08-11 10:41] LABS: Glucose, Whole Blood 195 mg/dL (60-115)
[2023-08-11 10:48] LABS: Basophils Percent Auto 0.3 % (0-2); Eosinophils Absolute Auto 0.1 X10*3/uL (0.0-0.4); Eosinophils Percent Auto 0.9 % (0-4); Hematocrit 33.4 % (37.0-47.0); Hemoglobin 11.4 g/dl (12.0-16.0); Imm Gran Abs Auto 0.04 X10*3/uL (0.00-0.03); Imm Gran Pct Auto 0.4 % (0.0-0.4); Lymphocytes Absolute Auto 1.7 X10*3/uL (1.2-4.9); Lymphocytes Percent Auto 15.6 % (20-40); Mean Corpuscular HGB Conc 34.1 g/dl (31.0-35.0); Mean Corpuscular Hemoglobin 29.2 pg (27.0-33.0); Mean Corpuscular Volume 85.4 fL (80.0-98.0); Mean Platelet Volume 10.9 fL (9.4-12.3); Monocytes Absolute Auto 0.5 X10*3/uL (0.1-1.2); Monocytes Percent Auto 4.3 % (2-11); Neutrophils Absolute Auto 8.3 x10*3/uL (2.0-8.3); Neutrophils Percent Auto 78.5 % (45-73); Platelet Count 248 X10*3/uL (160-400); Red Blood Count 3.91 X10*6/uL (4.20-5.50); Red Cell Distribution Width 12.9 % (11.0-16.0); White Blood Count 10.6 X10*3/uL (4.8-10.8)
[2023-08-11 10:54] LABS: Lactic Acid 1.8 mmol/L (0.5-2.0)
[2023-08-11 11:04] LABS: B Type Natriuretic Peptide 42 pg/mL (<100)
[2023-08-11 11:05] LABS: Alanine Aminotransferase 23 U/L (0-31); Albumin Level 3.4 g/dL (3.5-5.0); Alkaline Phosphatase 82 U/L (39-117); Anion Gap 13 (12-20); Aspartate Amino Transferase 23 U/L (5-31); Bilirubin Direct 0.1 mg/dL (0.0-0.5); Bilirubin Total 0.3 mg/dL (0.0-1.0); Blood Urea Nitrogen 22 mg/dL (9-16); Calcium 9.8 mg/dL (8.4-10.2); Carbon Dioxide 26 mmol/L (22-29); Chloride 107 mmol/L (96-108); Creatinine Clr Calc Pharmacy 45.4; Estimated Glomerular Filt Rate 44; Glucose Random 217 mg/dL (60-115); Magnesium 1.8 mg/dL (1.6-2.6); Potassium 4.8 mmol/L (3.3-5.1); Sodium 141 mmol/L (135-145); Total Protein 7.1 g/dL (6.5-8.0)
[2023-08-11 11:06] LABS: Troponin-I High Sensitivity < 2.7 ng/L (<3.5-17.0)
[2023-08-11 11:19] LABS: Ammonia 18 umol/L (13-55)
[2023-08-11 11:19] LABS: TSH reflex Free T4 3.56 uIU/mL (0.32-4.0)
[2023-08-11 11:19] LABS: Appearance Urine Clear; Color Urine Yellow; Glucose Urine UA Negative (Negative); Leukocyte Esterase Urine Negative (Negative); Nitrite Urine Negative (Negative); OBS Int Ctl Valid YES; OBS1 NEGATIVE (NEGATIVE); UMIC TRIGGER UACC YES; Urine Blood Negative (Negative); Urine Ketones Negative (Negative); Urine Protein 300 (3+) mg/dL (Neg-Trace)
[2023-08-11 11:23] LABS: Bacteria Urine None Seen (None Seen); Hyaline Casts Urine 0-2 /LPF (0-2); RBC Urine 0-2 /HPF (0-2); Squamous Epithelial Cell Urine 0-2 /HPF (0-2); WBC Urine 0-5 /HPF (0-5)
[2023-08-11 11:28] LABS: Amphetamine Screen Urine Not Detected (Not Detect); Barbiturates, Urine Not Detected (Not Detect); Benzodiazepines Screen Urine Not Detected (Not Detect); Cannabinoid Screen Urine Not Detected (Not Detect); Cocaine Screen Urine Not Detected (Not Detect); Fentanyl, urine Not Detected (Not Detect); Opiate Screen Urine Not Detected (Not Detect); Phencyclidine Screen Urine Not Detected (Not Detect)
[2023-08-11 12:32] LABS: Influenza A PCR NEGATIVE (Negative); Influenza B PCR NEGATIVE (Negative); Resp Syncy Virus RNA Qual PCR NEGATIVE (Negative); SARS COV2 PCR INHOUSE NEGATIVE (Negative)
[2023-08-11] MEDS: iohexoL 350 MG/ML 75 ML INFUS..BTL 70 ML IV (14:03)
--- NOTE | 2023-08-11 14:42 | PC.NURSE ---
pt more awake now and left sided deficits noted, pts speech garbled. CTA obtained pending results
[2023-08-11 14:43] LABS: Glucose, Whole Blood 201 mg/dL (60-115)
--- NOTE | 2023-08-11 16:28 | PHA.MEDREC ---
Pharmacy Consult ? Medication Reconciliation Pharmacy has completed the medication reconciliation. Confirmed medication with pharmacy ([facility]) and with daughter over the phone with pick out hand. Some medications were confirmed by daughter and not filled in over a year according to pharmacy so they were left off of med rec. (Risperidone 1mg, Citalopram 20mg, and Quetiapine 50mg) Also confirmed that Linzess 72mcg is the most current dosage that patient is taking.
--- NOTE | 2023-08-11 17:19 | PM.IMHP ---
History of Present Illness Date of Service: 08/11/23 Attending physician on admission: Kenyatta Flynn Chief Complaint: AMS This is a 77-year-old [place]-speaking female who was brought to the emergency department after being found unresponsive. History was obtained via interpreter from 2 of her daughters at the bedside. She was reportedly in her usual state of health when her daughter left at 18:00 last night. At baseline patient is awake alert, ambulates with walker and able to carry on full conversation. This morning when her daughter arrived she was unable to wake her up. She called 911 and had her brought to the emergency room. Patient has history of hypoglycemia, but upon EMS arrival her blood sugar was 220. On arrival to the ED, she was drooling and unable to participate in neuro exam. Brain CT was negative. CBC, chemistries all within normal limits. CXR negative. No evidence of co2 retention. CTA of head and neck was negative for LVO or stenosis. She woke up a little and was noted to have left sided weakness concerning for possible stroke. She was able to follow some simple commands but is not able to answer questions at this time; unable to obtain ROS. [facility] Medical History Abdominal bloating Elevated TSH Preoperative clearance Bilateral leg pain Urticaria Obesity (BMI 30-39.9) Diabetic nephropathy associated with type 2 diabetes mellitus Nausea and vomiting Microalbuminuria due to type 2 diabetes mellitus Paroxysmal atrial fibrillation Slurred speech History of endometrial cancer Depression Iron deficiency anemia History of left breast cancer Hypothyroidism Schizophrenia MCC (current) use of insulin Hypertension Dyslipidemia Diabetic polyneuropathy associated with type 2 diabetes mellitus Diabetes type 2, uncontrolled Family History Father No problems noted. Mother Diabetes mellitus Heart disease Surgical History History of tooth extraction Hx of eye surgery Hx of breast surgery Hx of total hysterectomy Social History Household Members: Family and None Household Members Other:: Kajal Menendez [phone] Housing: Apartment Alcohol intake: never Patient Tobacco Use Status: Never used Tobacco Smoked in Last 30 Days: No e-Cigarette/Vaping Use: Never Used Second Hand Smoke Exposure: No Use of substances other than those prescribed or required for medical reasons: No Advance Directives: No service: No Current occupational status: disabled Cognitive needs: Yes Hearing needs: No Vision needs: Yes Meds Allergies Allergy/AdvReac Type Severity Reaction Status Date / Time JERMAINE Inhibitors AdvReac Intermediate COUGH Verified 08/05/23 09:27 [JERMAINE INHIBITORS] lactose [LACTOSE] AdvReac Intermediate GI Verified 08/05/23 09:27 DISCOMFORT Active Medications: Current Medications Acetaminophen (Acetaminophen Supp 650 Mg Supp.Rect) 650 mg RI Q6H PRN PRN Reason: Pain, Mild (Pain Scale 1-3) Dextrose (Dextrose 50 % 25 Gm/50 Ml Syringe) 25 gm IVPUSH Q15M PRN; Protocol PRN Reason: per Hypoglycemia Standing Ord. Glucose (Glucose Gel 15 Gm Gel..Gram.) 15 gm PO Q15M PRN; Protocol PRN Reason: per Hypoglycemia Standing Ord. Insulin Human Lispro (Insulin Lispro 100 Unit/Ml 3 Ml Vial) 0 unit SUBCUT Q6H [facility]; Protocol Ondansetron HCl (Ondansetron Hcl 4 Mg/2 Ml Vial) 4 mg IVPUSH Q8H PRN PRN Reason: Nausea and Vomiting Sodium Chloride (0.9 % Sodium Chloride Flush 3 Ml Syringe) 3 ml IVFLUSH [facility] Home Medications Medication Instructions Recorded Confirmed Last Taken Type lancets 33 gauge #100 ea 04/09/20 04/28/23 Unknown History pen needle, diabetic 32 gauge x #50 ea 04/09/20 04/28/23 Unknown History acetaminophen 650 mg 650 mg PO Q8H PRN moderate pain 09/15/22 08/11/23 Unknown History tablet,extended release atorvastatin 40 mg tablet 40 mg PO BEDTIME 08/11/23 08/11/23 08/10/23 History bismuth subsalicylate 262 mg/15 mL 15 mg PO QID PRN upset stomach 08/11/23 08/11/23 Unknown History oral suspension (Pepto-Bismol) insulin glargine U-300 conc 300 65 unit subcut DAILY 08/11/23 08/11/23 08/10/23 History unit/mL (3 mL) subcutaneous pen (Toujeo Max U-300 SoloStar) omeprazole 40 mg capsule,delayed 40 mg PO DAILY 08/11/23 08/11/23 08/10/23 History release tamoxifen 20 mg tablet 20 mg PO BEDTIME 08/11/23 08/11/23 08/10/23 History Physical Exam Vital Signs and Narrative: Vital Signs: Last Vital Signs Temp 97.9 F 08/11/23 10:46 Pulse 65 08/11/23 17:06 Resp 16 08/11/23 17:06 BP 147/64 H 08/11/23 17:06 Pulse Ox 99 08/11/23 17:06 O2 Del Method Nasal Cannula 08/11/23 17:06 O2 Flow Rate 2 08/11/23 17:06 BMI result Body Mass Index 37.8 Const: Other: confused; eyes open to verbal stimuli, following some commands, but not responding verbally Resp: Effort & Inspection: normal respiratory effort, no respiratory distress and no use of accessory muscles Cardio: Rate: regular rate GI: Other: +BS, appears nontender on palpation Inspection: No distended Palpation (GI): Soft to palpation Neuro: Other: eyes open to verbal stimuli, does not move left arm or left leg; able to move right upper and lower extremities; tongue appears midline. not responding verbally. Extrem: General: Yes no pedal edema Results Labs 08/11/23 10:28 08/11/23 10:28 Labs: Laboratory Results - last 24 hr 08/11/23 08/11/23 08/11/23 10:23 10:28 10:33 MCV 85.4 MCH 29.2 MCHC 34.1 RDW 12.9 Plt Count 248 MPV 10.9 Immature Gran % (Auto) 0.4 Neut % (Auto) 78.5 H Lymph % (Auto) 15.[address] [place] % (Auto) 4.3 Eos % (Auto) 0.9 Baso % (Auto) 0.3 Lymph # (Auto) 1.7 [place] # (Auto) 0.5 Eos # (Auto) 0.1 Baso # (Auto) 0.0 Abs Immat Gran (auto) 0.04 H Absolute Neuts (auto) 8.3 Absolute Nucleated RBC 0.000 Nucleated RBC % (auto) 0.0 Hold Purple Top SEE NOTE Hold Blue Top SEE NOTE VBG pH 7.46 H VBG pCO2 33 VBG pO2 57 VBG HCO3 24 VBG O2 Saturation 88.0 VBG Base Excess 1.2 Anion Gap 13 Estim Creat Clear Calc 45.4 Estimated GFR 44 POC Glucose Random Glucose 217 H Lactic Acid 1.8 Calcium 9.8 Magnesium 1.8 Total Bilirubin 0.3 Direct Bilirubin 0.1 AST 23 ALT 23 Alkaline Phosphatase 82 Ammonia Total Creatine Kinase 17 L Troponin I High Sens < 2.7 B-Natriuretic Peptide 42 Total Protein 7.1 Albumin 3.4 L TSH 3.56 Urine Color Urine Appearance Urine pH Ur Specific [place] Urine Protein Urine Glucose (UA) Urine Ketones Urine Blood Urine Nitrite Ur Leukocyte Esterase Urine RBC Urine WBC Ur Squamous Epith Cells Urine Bacteria Hyaline Casts Stool Occult Blood Urine Opiates Screen Urine Fentanyl Screen Ur Barbiturates Screen Ur Phencyclidine Scrn Ur Amphetamines Screen U Benzodiazepines Scrn Urine Cocaine Screen U Marijuana (THC) Screen Influenza Type A (PCR) Influenza Type B (PCR) RSV RNA Qual (PCR) SARS-CoV-2 RNA (RT-PCR) 08/11/23 08/11/23 08/11/23 10:37 11:02 11:08 MCV MCH MCHC RDW Plt Count MPV Immature Gran % (Auto) Neut % (Auto) Lymph % (Auto) [place] % (Auto) Eos % (Auto) Baso % (Auto) Lymph # (Auto) [place] # (Auto) Eos # (Auto) Baso # (Auto) Abs Immat Gran (auto) Absolute Neuts (auto) Absolute Nucleated RBC Nucleated RBC % (auto) Hold Purple Top Hold Blue Top VBG pH VBG pCO2 VBG pO2 VBG HCO3 VBG O2 Saturation VBG Base Excess Anion Gap Estim Creat Clear Calc Estimated GFR POC Glucose 195 H Random Glucose Lactic Acid Calcium Magnesium Total Bilirubin Direct Bilirubin AST ALT Alkaline Phosphatase Ammonia 18 Total Creatine Kinase Troponin I High Sens B-Natriuretic Peptide Total Protein Albumin TSH Urine Color Yellow Urine Appearance Clear Urine pH 6.0 Ur Specific [place] 1.010 Urine Protein 300 (3+) H Urine Glucose (UA) Negative Urine Ketones Negative Urine Blood Negative Urine Nitrite Negative Ur Leukocyte Esterase Negative Urine RBC 0-2 Urine WBC 0-5 Ur Squamous Epith Cells 0-2 Urine Bacteria None Seen Hyaline Casts 0-2 Stool Occult Blood NEGATIVE Urine Opiates Screen Not Detected Urine Fentanyl Screen Not Detected Ur Barbiturates Screen Not Detected Ur Phencyclidine Scrn Not Detected Ur Amphetamines Screen Not Detected U Benzodiazepines Scrn Not Detected Urine Cocaine Screen Not Detected U Marijuana (THC) Screen Not Detected Influenza Type A (PCR) NEGATIVE Influenza Type B (PCR) NEGATIVE RSV RNA Qual (PCR) NEGATIVE SARS-CoV-2 RNA (RT-PCR) NEGATIVE 08/11/23 14:40 MCV MCH MCHC RDW Plt Count MPV Immature Gran % (Auto) Neut % (Auto) Lymph % (Auto) [place] % (Auto) Eos % (Auto) Baso % (Auto) Lymph # (Auto) [place] # (Auto) Eos # (Auto) Baso # (Auto) Abs Immat Gran (auto) Absolute Neuts (auto) Absolute Nucleated RBC Nucleated RBC % (auto) Hold Purple Top Hold Blue Top VBG pH VBG pCO2 VBG pO2 VBG HCO3 VBG O2 Saturation VBG Base Excess Anion Gap Estim Creat Clear Calc Estimated GFR POC Glucose 201 H Random Glucose Lactic Acid Calcium Magnesium Total Bilirubin Direct Bilirubin AST ALT Alkaline Phosphatase Ammonia Total Creatine Kinase Troponin I High Sens B-Natriuretic Peptide Total Protein Albumin TSH Urine Color Urine Appearance Urine pH Ur Specific [place] Urine Protein Urine Glucose (UA) Urine Ketones Urine Blood Urine Nitrite Ur Leukocyte Esterase Urine RBC Urine WBC Ur Squamous Epith Cells Urine Bacteria Hyaline Casts Stool Occult Blood Urine Opiates Screen Urine Fentanyl Screen Ur Barbiturates Screen Ur Phencyclidine Scrn Ur Amphetamines Screen U Benzodiazepines Scrn Urine Cocaine Screen U Marijuana (THC) Screen Influenza Type A (PCR) Influenza Type B (PCR) RSV RNA Qual (PCR) SARS-CoV-2 RNA (RT-PCR) Imaging Radiologist's Impressions: Impressions Cervical Spine CT 08/11/23 11:45 IMPRESSION: * No evidence of intracranial hemorrhage or other acute pathology compared to 05/11/2023. * Patchy hypoattenuation within supratentorial white matter is compatible with sequela of chronic microangiopathy (i.e., leukoaraiosis). * No evidence of acute fracture or traumatic subluxation of the moderately degenerated cervical spine. Chest X-Ray 08/11/23 11:45 IMPRESSION: No acute disease. Head CT 08/11/23 11:45 IMPRESSION: * No evidence of intracranial hemorrhage or other acute pathology compared to 05/11/2023. * Patchy hypoattenuation within supratentorial white matter is compatible with sequela of chronic microangiopathy (i.e., leukoaraiosis). * No evidence of acute fracture or traumatic subluxation of the moderately degenerated cervical spine. Head/Neck CTA 08/11/23 14:10 IMPRESSION: CTA head demonstrates no large vessel occlusion, saccular aneurysm, or dissection. CTA neck demonstrates no hemodynamically significant stenosis, dissection, or aneurysm. Assessment and Plan (1) Left-sided weakness: Status: Acute (2) Encephalopathy acute: Status: Acute Plan This is a 77 year old [place] Speaking female with history of afib on eliquis (unclear last dose), found unresponsive and brought to the ED for evaluation found to have left side weakness concerning for stoke acute encephalopathy due to possible stroke renal function, liver function, electrolytes, ammonia wnl vbg no evidence of co2 retention cxr, UA negative for infection, COVID, flu, RSV negative brain ct negative for hemorrhage or other acute pathology; cta head/neck negative for LVO or stenosis left side weakness on exam concerning for stroke - LKWT 6pm 08/09 - out of the window for tpa failed bedside swallow eval - NPO for now -neuro checks, neurology evaluation, brain MRI -PT/OT/speech evaluation -rectal aspirin -will check lipid profile -close monitoring on telemetry -unable to take statin at this time due to failed swallow eval (on atorvastain 40 at bedtime) if MRI + for stroke increase to 80 mg when able to take po DM with gastroparesis NPO as failed swallow evaluation follow q6h POCs, SSI coverage as needed hold reglan until able to tolerate diet paroxysmal atrial fibrillation hold Eliquis as unable to take po hold metoprolol, HR controlled at this time EKG in sinus rhythm HTN bp elevated on arrival improved without intervention hold bp meds as npo allow for permissive HTN in the setting of possible stroke hold valsartan, metoprolol, amlodipine follow bp closely morbid obesity - BMI 37.8 likely contributing to co-morbidities chronic constipation hold linzess until able to take po h/o breast ca tamoxifen on hold until able to take po gerd hold omeprazole dvt ppx - lovenox (on eliquis at baseline for afib, but unable to take po) code status - presumed full code - discussed with daughters at bedside. Daughter Camila is HCP reportedly and was unable to be reached at the time of admission Patient will likely require two midnight stay in the hospital for management and work up of acute encephalopathy with left side weakness concerning for stroke with need for close neurological monitoring, specialist evaluation, speech evaluation further brain imaging and safe disposition Quality Stroke Does the patient have a stroke diagnosis?: No VTE Prior VTE?: No VTE Risk Level:: Medical - moderate - high VTE Device Contraindication: N/A - Device Ordered VTE Drug Contraindication: N/A - Med Ordered
--- NOTE | 2023-08-11 17:23 | PC.NURSE ---
pt failed bedside nursing eval. Medardo MADERA aware
[2023-08-11 17:27] LABS: Glucose, Whole Blood 173 mg/dL (60-115)
[2023-08-11] MEDS: Aspirin 300 MG SUPP.RECT PR (17:40)
--- NOTE | 2023-08-11 18:11 | PC.NURSE ---
completed MRI screening form with pts daughters at bedside using dealer account manager for assistance - scanned to MRI
[2023-08-11] MEDS: Enoxaparin Sodium 40 MG/0.4 ML SYRINGE SUBCUT (18:43)
--- NOTE | 2023-08-11 19:10 | PC.NURSE ---
1904 found pt kneeling on floor. assisted back into bed. no obvious trauma/injury. pt has no new complaints.. vitals obtained, will notify
--- NOTE | 2023-08-11 19:36 | PM.EVENT ---
Event Note Date of Service: 08/11/23 Event Note: 7:22 PM - active by nursing to notify that the patient has laid out of bed. She was found to be on her knees. I did evaluate patient. Vital signs stable. She did not look in distress. I examined her and found no evidence of severe trauma such as swelling or hematomas. All her extremities seems to be symmetric with appropriate passive ROM. In my opinion, patient needs no further evaluation with imaging (except those already ordered for stroke workup). Time Spent With Patient Time: Total time managing care of this patient today ____ minutes.
--- NOTE | 2023-08-11 19:38 | PC.NURSE ---
Dr Saravia assessed pt at bedside and cleared her with no new injuries or changes in condition. Report sent to floor RN, pt waiting for transport at this time.
[2023-08-12] VITALS (7 sets, daily range): BP systolic 162–184; BP diastolic 56–98; PULSE 61–89; RESP 18–20; TEMP 36.2–37.4; O2SAT 96–98
[2023-08-12 01:42] LABS: Glucose, Whole Blood 193 mg/dL (60-115)
[2023-08-12] MEDS: 0.9 % Sodium Chloride Flush 3 ML SYRINGE IVFLUSH ×4 (01:52→22:42)
[2023-08-12] MEDS: Insulin Lispro 100 UNIT/ML 3 ML VIAL SUBCUT ×5 (01:55→22:43)
[2023-08-12 06:36] LABS: Glucose, Whole Blood 201 mg/dL (60-115)
[2023-08-12 07:56] LABS: MANUAL DIFF FLAG NO
[2023-08-12 08:02] LABS: Basophils Percent Auto 0.4 % (0-2); Eosinophils Absolute Auto 0.2 X10*3/uL (0.0-0.4); Eosinophils Percent Auto 2.1 % (0-4); Hematocrit 34.1 % (37.0-47.0); Hemoglobin 11.5 g/dl (12.0-16.0); Imm Gran Abs Auto 0.02 X10*3/uL (0.00-0.03); Imm Gran Pct Auto 0.2 % (0.0-0.4); Lymphocytes Absolute Auto 2.3 X10*3/uL (1.2-4.9); Lymphocytes Percent Auto 26.3 % (20-40); Mean Corpuscular HGB Conc 33.7 g/dl (31.0-35.0); Mean Corpuscular Hemoglobin 29.1 pg (27.0-33.0); Mean Corpuscular Volume 86.3 fL (80.0-98.0); Monocytes Absolute Auto 0.6 X10*3/uL (0.1-1.2); Monocytes Percent Auto 7.1 % (2-11); Neutrophils Absolute Auto 5.7 x10*3/uL (2.0-8.3); Neutrophils Percent Auto 63.9 % (45-73); Platelet Count 239 X10*3/uL (160-400); Red Blood Count 3.95 X10*6/uL (4.20-5.50); White Blood Count 8.9 X10*3/uL (4.8-10.8)
[2023-08-12 08:09] LABS: Estimated Average Glucose 180 mg/dL; Hemoglobin A1c % 7.9 % (<6.0)
[2023-08-12 08:14] LABS: Alanine Aminotransferase 25 U/L (0-31); Albumin Level 3.3 g/dL (3.5-5.0); Alkaline Phosphatase 81 U/L (39-117); Anion Gap 16 (12-20); Aspartate Amino Transferase 24 U/L (5-31); Bilirubin Total 0.4 mg/dL (0.0-1.0); Blood Urea Nitrogen 24 mg/dL (9-16); Calcium 9.7 mg/dL (8.4-10.2); Carbon Dioxide 23 mmol/L (22-29); Chloride 108 mmol/L (96-108); Cholesterol 163 mg/dL (<200); Creatinine Clr Calc Pharmacy 35.3; Estimated Glomerular Filt Rate 36; Glucose Random 219 mg/dL (60-115); HDL Cholesterol 25 mg/dL (>40); LDL Cholesterol Calculated 63 mg/dL (<100); Potassium 4.4 mmol/L (3.3-5.1); Sodium 143 mmol/L (135-145); Total Protein 6.8 g/dL (6.5-8.0); Triglycerides 375 mg/dL (<150)
--- NOTE | 2023-08-12 10:24 | CA_ITS ---
Transthoracic Echocardiogram Patient (Last, First, Middle): Catherine Machado, Gender: Female Date of : 1945 Age: 77 Procedure Date: 08/12/2023 Procedure Type: Transthoracic Echocardiogram Location: [facility] [place] Height: 157.48 cm Weight: 86.18 kg BSA: 1.87 m2 Heart Rate: bpm BP: 178 / 56 mmHg Computer Information Systems Instructor: Referring MD: Nai MADERA Symptoms: stroke protocol Study Quality: Fair ECG Rhythm: Sinus Conclusions: - The left ventricular systolic function is hyperdynamic. The visually estimated ejection fraction is >70%. - There is severely increased left ventricular wall thickness. - No obvious valvular pathology seen on this study. Findings Left Ventricle Normal left ventricular cavity size. There is severely increased left ventricular wall thickness. The left ventricular systolic function is hyperdynamic. The visually estimated ejection fraction is >70%. There is no evidence of regional wall motion abnormalities. Evidence suggests grade I (mild) diastolic dysfunction. Right Ventricle Normal right ventricular cavity size and systolic function. Atria Both atria are normal in size. Aortic Valve There is a normal trileaflet aortic valve. There is no aortic valve stenosis. There is no aortic valve regurgitation. Mitral Valve The mitral valve appears normal. There is no mitral valve regurgitation. There is no mitral valve stenosis. Pulmonic Valve The pulmonic valve is likely normal. Tricuspid Valve There is trace tricuspid valve regurgitation. Tricuspid regurgitation envelope is inadequate for calculation of right ventricular systolic pressure. There is no evidence of pulmonary hypertension. Great Vessels The asc aorta is normal in size. Venous The inferior vena cava is normal in size and collapses greater than 50% with inspiration. Pericardium/Pleural There is no evidence of pericardial effusion. Prior Study Comparison No significant change compared to prior study dated: 09/28/2021. Recommendations, Care & Conclusions No obvious valvular pathology seen on this study. Measurements 2D Linear Measurements IVSd: 1.66 0.6-0.9/0.6-1.0 cm LVIDd: 3.75 3.9-5.3/4.2-5.9 cm LVIDd Index: 2.01 2.4-3.2/2.2-3.1 cm/m2 LVIDs: 2.23 2.0-3.6 cm LVPWd: 1.43 0.7-1.1 cm Ao Root: 3.40 2.1-3.5 cm LA Diam: 2.90 2.7-3.8/3.0-4.0 cm LAIDs Index: 1.55 1.5-2.3 cm/m2 LV Mass: 277.97 67-162/88-224 g LV Mass Index: 148.65 43-95/49-115 g/m2 LVOT Diam: 2.00 3.0+(-)1.3 cm 2D Systolic Function EF 4C: 62.20 >55% EF 2C: 71.40 >55% EF BiP: 66.50 >55% Mitral Valve MV Pk E: 0.70 MV PK A: 1.21 MV Decel Time: 256.00 E/A: 0.60 E'Lateral: 6.53 E'Medial: 5.22 E/E' Med: 13.40 E/E' Lat: 10.70 PHT: 75.00 MVA PHT: 2.93 Decel Cole: 2.73 Aortic Valve AoV Pk Michael: 1.78 AoV Mn Michael: 1.22 AoV VTI: 0.42 AoV Pk Grad: 13.00 Aov Mn Grad: 7.00 LUKE Cont.VTI: 2.49 LVOT LVOT Pk Michael: 1.33 LVOT Mn Michael: 0.94 LVOT VTI: 0.33 LVOT Pk Grad: 7.00 LVOT Mn Grad: 5.00 LVOT Diam: 2.00 LVOT Area: 3.14 Diastolic Function MV Pk E: 0.70 MV Pk A: 1.21 E/A: 0.60 E'Medial: 5.22 E/E' Med: 13.40 E' Laterial: 6.53 E/E' Lat: 10.70 Tricuspid Valve TR Pk Michael: 2.14 TR Pk Grad: 18.00 Great Vessels Aorta Ao Root-2D: 3.40 2.0-3.7 cm Ao Asc: 3.30 2.1-3.4 cm Pulmonary Valve PV Pk Michael: 1.11 Peak PV Grad: 5.00 Updated in Other Vendor System with Status of Final Nael Gore MD electronically signed on 08/13/2023 11:38:41 AM with status of Final
[2023-08-12 11:31] LABS: Glucose, Whole Blood 202 mg/dL (60-115)
--- NOTE | 2023-08-12 12:17 | P.PNIM_ITS ---
Subjective Subjective Date of Service: 08/12/23 Interval History: seen and examined this morning follow up for stroke history obtained with assistance of roll repairer patient more awake and able to answer some basic questions, a bit hard to understand at times MRI confirmed acute stroke left side weakness appears somewhat improved compared to yesterday Review of Systems Review of Systems: Yes all other systems are reviewed and are negative Cardiovascular Cardiovascular: Denies chest pain Gastrointestinal Gastrointestinal: Denies abdominal pain Physical Exam 2 Vital Signs: Vital Signs: Last Vital Signs Temp 98.9 F 08/12/23 11:06 Pulse 89 08/12/23 11:18 Resp 20 08/12/23 07:17 BP 178/56 H 08/12/23 11:18 Pulse Ox 98 08/12/23 11:18 O2 Del Method Room Air 08/12/23 11:06 O2 Flow Rate 2 08/11/23 18:44 BMI result Body Mass Index 32.7 Const: Other: lying in bed; appears comfortable difficult to assess orientation General: alert and awake Nutritional Appearance: obese Resp: Effort & Inspection: normal respiratory effort, able to speak in complete sentences, no respiratory distress and no use of accessory muscles A uscultation: clear to auscultation bilaterally Cardio: Rate: regular rate GI: Inspection: No distended Palpation (GI): Soft to palpation and nontender Neuro: Other: moves right arm and leg freely; still with weakness of left arm and leg although able to move both more as compared to yesterday on admission; speech difficult to understand, tongue midline Extrem: General: Yes no pedal edema Objective Data Active Medications Acetaminophen (Acetaminophen Supp 650 Mg Supp.Rect) 650 mg DC Q6H PRN PRN Reason: Pain, Mild (Pain Scale 1-3) Dextrose (Dextrose 50 % 25 Gm/50 Ml Syringe) 25 gm IVPUSH Q15M PRN; Protocol PRN Reason: per Hypoglycemia Standing Ord. Enoxaparin Sodium (Enoxaparin Sodium 40 Mg/0.4 Ml Syringe) 40 mg SUBCUT Q24H RANDY Last Admin: 08/11/23 18:43 Dose: 40 mg Documented By: JUAN Famotidine (Famotidine 20 Mg Tablet) 40 mg PO BEDTIME [facility] Ferrous Sulfate (Ferrous Sulfate 324 Mg Tablet.Dr) 324 mg PO DAILY [facility] Glucose (Glucose Gel 15 Gm Gel..Gram.) 15 gm PO Q15M PRN; Protocol PRN Reason: per Hypoglycemia Standing Ord. Insulin Human Lispro (Insulin Lispro 100 Unit/Ml 3 Ml Vial) 0 unit SUBCUT Q6H [facility]; Protocol Last Admin: 08/12/23 11:32 Dose: 4 unit Documented By: NICHOLAS Magnesium Oxide (Magnesium Oxide 400 Mg Tablet) 200 mg PO BID [facility] Metoclopramide HCl (Metoclopramide Hcl 5 Mg Tablet) 5 mg PO TID [facility] Omeprazole (Omeprazole 40 Mg Capsule.Dr) 40 mg PO DAILY [facility] Ondansetron HCl (Ondansetron Hcl 4 Mg/2 Ml Vial) 4 mg IVPUSH Q8H PRN PRN Reason: Nausea and Vomiting Senna (Sennosides 8.6 Mg Tablet) 17.2 mg PO BID [facility] Sodium Chloride (0.9 % Sodium Chloride Flush 3 Ml Syringe) 3 ml IVFLUSH QSHIFT [facility] Last Admin: 08/12/23 09:52 Dose: 3 ml Documented By: NICHOLAS Tamoxifen Citrate (Tamoxifen Citrate 10 Mg Tablet) 20 mg PO BEDTIME [facility] Labs 08/12/23 07:35 08/12/23 07:35 Labs: Laboratory Results - last 24 hr 08/11/23 08/11/23 08/11/23 11:02 14:40 17:23 MCV MCH MCHC RDW Plt Count MPV Immature Gran % (Auto) Neut % (Auto) Lymph % (Auto) [place] % (Auto) Eos % (Auto) Baso % (Auto) Lymph # (Auto) [place] # (Auto) Eos # (Auto) Baso # (Auto) Abs Immat Gran (auto) Absolute Neuts (auto) Absolute Nucleated RBC Nucleated RBC % (auto) Anion Gap Estim Creat Clear Calc Estimated GFR POC Glucose 201 H 173 H Random Glucose Estimat Average Glucose Hemoglobin A1c % Calcium Total Bilirubin AST ALT Alkaline Phosphatase Total Protein Albumin Triglycerides Cholesterol LDL Cholesterol, Calc HDL Cholesterol Influenza Type A (PCR) NEGATIVE Influenza Type B (PCR) NEGATIVE RSV RNA Qual (PCR) NEGATIVE SARS-CoV-2 RNA (RT-PCR) NEGATIVE 08/12/23 08/12/23 08/12/23 01:38 06:31 07:35 MCV 86.3 MCH 29.1 MCHC 33.7 RDW 13.0 Plt Count 239 MPV 11.0 Immature Gran % (Auto) 0.2 Neut % (Auto) 63.9 Lymph % (Auto) 26.3 [place] % (Auto) 7.1 Eos % (Auto) 2.1 Baso % (Auto) 0.4 Lymph # (Auto) 2.3 [place] # (Auto) 0.6 Eos # (Auto) 0.2 Baso # (Auto) 0.0 Abs Immat Gran (auto) 0.02 Absolute Neuts (auto) 5.7 Absolute Nucleated RBC 0.000 Nucleated RBC % (auto) 0.0 Anion Gap 16 Estim Creat Clear Calc 35.3 Estimated GFR 36 POC Glucose 193 H 201 H Random Glucose 219 H Estimat Average Glucose 180 Hemoglobin A1c % 7.9 H Calcium 9.7 Total Bilirubin 0.4 AST 24 ALT 25 Alkaline Phosphatase 81 Total Protein 6.8 Albumin 3.3 L Triglycerides 375 H Cholesterol 163 LDL Cholesterol, Calc 63 HDL Cholesterol 25 L Influenza Type A (PCR) Influenza Type B (PCR) RSV RNA Qual (PCR) SARS-CoV-2 RNA (RT-PCR) 08/12/23 11:02 MCV MCH MCHC RDW Plt Count MPV Immature Gran % (Auto) Neut % (Auto) Lymph % (Auto) [place] % (Auto) Eos % (Auto) Baso % (Auto) Lymph # (Auto) [place] # (Auto) Eos # (Auto) Baso # (Auto) Abs Immat Gran (auto) Absolute Neuts (auto) Absolute Nucleated RBC Nucleated RBC % (auto) Anion Gap Estim Creat Clear Calc Estimated GFR POC Glucose 202 H Random Glucose Estimat Average Glucose Hemoglobin A1c % Calcium Total Bilirubin AST ALT Alkaline Phosphatase Total Protein Albumin Triglycerides Cholesterol LDL Cholesterol, Calc HDL Cholesterol Influenza Type A (PCR) Influenza Type B (PCR) RSV RNA Qual (PCR) SARS-CoV-2 RNA (RT-PCR) Assessment and Plan (1) Acute stroke due to ischemia: Status: Acute Plan This is a 77 year old Urdu Speaking female with history of afib on eliquis (unclear last dose), found unresponsive and brought to the ED for evaluation found to have left side weakness concerning for stoke acute ischemic stroke brain ct negative for hemorrhage or other acute pathology; cta head/neck negative for LVO or stenosis but MRI confirms 1.9 cm infarct involving the right thalamus and posterior limb of the right internal capsule. no mass effect, no hemorrhagic transformation LKWT 6pm 08/09 - out of the window for tpa initially failed bedside swallow 08/10, was seen by speech 08/11 and was able to tolerate modified diet seen by PT/OT - rec STR upon discharge neurology consult pending lipid profile obtained, LDL 63, increase lipitor to 80 mg for acute stroke echo pending DM with gastroparesis Hba1c 7.9 will start modified diabetic diet as recommended by speech therapy follow POCs, SSI coverage as needed resume reglan resume basal insulin if tolerating diet paroxysmal atrial fibrillation resume elequis HR controlled at this time, hold metoprolol to allow for permissive HTN EKG in sinus rhythm HTN bp elevated on arrival improved without intervention hold bp meds to allow for permissive HTN in the setting of acute stroke hold valsartan, metoprolol, amlodipine follow bp closely morbid obesity - BMI 37.8 likely contributing to co-morbidities chronic constipation linzess is NF h/o breast ca continue tamoxifen gerd continue omeprazole CKD3b renal function near baseline follow bmp dvt ppx - eliquis requires ongoing hospital stay for close monitoring in the setting acute stroke with need for close neurological monitoring, specialist evaluation, frequent neuro checks Quality Stroke Does the patient have a stroke diagnosis?: No VTE Prior VTE?: No VTE Risk Level:: Medical - moderate - high VTE Device Contraindication: N/A - Device Ordered VTE Drug Contraindication: N/A - Med Ordered
--- NOTE | 2023-08-12 13:00 | P.CDIM_ITS ---
PROVIDER RESPONSE TEXT: To clarify, the appropriate diagnosis supported by the clinical indicators: CKD, please provide stage: 3b QUERY TEXT: PHYSICIAN'S DOCUMENTATION REQUEST Date of Query: 08/12/2023 12:20 PM EDT Patient Name: Catherine Machado Admit Date: 08/11/2023 Dear Nai Batres, A review of the medical record indicates additional documentation may be needed. Please review below and update the documentation accordingly. Clinical Indicators: ED: 77 year old female with CKD. CR: 1.19/1.42 BUN GFR 44/36 Please clarify which of the following accurately represents the patient's renal status: CKD, please provide stage Stage 1, 2, 3a, 3b, 4 Acute kidney injury on CKD Stage 1, 2, 3a, 3b, 4 Other (explain) Clinically unable to determine (explain) Thank you, Naina Bower, CCS, CDIS Use of terms such as suspected, likely, concern for, or probable (associated with a specific diagnosi s that is being evaluated, monitored, or treated as if it exists) are acceptable and can be coded in the inpatient se tting, when documented at the time of discharge. Please use your independent medical judgment in providing your response. THIS QUERY IS PART OF THE PERMANENT MEDICAL RECORD
--- NOTE | 2023-08-12 14:24 | MHC.CM.PN ---
IMM 08/11. Met with pt and a medical interpreter, pt sleeping through meeting, but pts daughter Camila present at bedside and able to answer CM intake assessment questions. Pt lives alone in an apartment, uses a walker. Pts daughters are her special effects designer daily 9am-7pm. Pts daughters will transport her home. Pts daughter would be interested in new VNA services at D/C. No HCP on file, pt unable to complete one at this time. PCP: Dr. Lois Salazar
[2023-08-12] MEDS: Metoclopramide HCl 5 MG TABLET PO ×2 (15:05→22:41)
[2023-08-12 15:31] LABS: Glucose, Whole Blood 269 mg/dL (60-115)
--- NOTE | 2023-08-12 15:54 | PM.NEUROCN ---
History of Present Illness Data of Consult Service Date: 08/12/23 Primary Care Provider: Lois Salazar MD HPI Reason for consult: Stroke 77 years old woman was brought to hospital after she was found on the floor or unresponsive. Loss contact with the family was the night before. Her workup ultimately revealed an acute stroke and this consultation was requested. There was no sign of seizure. She was not a good historian. Review of Systems Review of Systems: [facility] Past Medical History Medical History Abdominal bloating Elevated TSH Preoperative clearance Bilateral leg pain Urticaria Obesity (BMI 30-39.9) Diabetic nephropathy associated with type 2 diabetes mellitus Nausea and vomiting Microalbuminuria due to type 2 diabetes mellitus Paroxysmal atrial fibrillation Slurred speech History of endometrial cancer Depression Iron deficiency anemia History of left breast cancer Hypothyroidism Schizophrenia nursing home (current) use of insulin Hypertension Dyslipidemia Diabetic polyneuropathy associated with type 2 diabetes mellitus Diabetes type 2, uncontrolled Family History Family History Father No problems noted. Mother Diabetes mellitus Heart disease Surgical History Surgical History History of tooth extraction Hx of eye surgery Hx of breast surgery Hx of total hysterectomy Social History Social History Household Members: Unknown / Unable to assess Household Members Other:: Kajal Menendez [phone] Housing: Unknown / Unable to assess Alcohol intake: never Patient Tobacco Use Status: Never used Tobacco e-Cigarette/Vaping Use: Never Used Second Hand Smoke Exposure: No service: No Current occupational status: disabled Cognitive needs: Yes Hearing needs: No Vision needs: Yes Meds Allergies Allergy/AdvReac Type Severity Reaction Status Date / Time JERMAINE Inhibitors AdvReac Intermediate COUGH Verified 08/05/23 09:27 [JERMAINE INHIBITORS] lactose [LACTOSE] AdvReac Intermediate GI Verified 08/05/23 09:27 DISCOMFORT Active Medications: Current Medications Acetaminophen (Acetaminophen Supp 650 Mg Supp.Rect) 650 mg MT Q6H PRN PRN Reason: Pain, Mild (Pain Scale 1-3) Apixaban (Apixaban 5 Mg Tablet) 5 mg PO BID [facility] Atorvastatin Calcium (Atorvastatin Calcium 80 Mg Tablet) 80 mg PO BEDTIME [facility] Dextrose (Dextrose 50 % 25 Gm/50 Ml Syringe) 25 gm IVPUSH Q15M PRN; Protocol PRN Reason: per Hypoglycemia Standing Ord. Famotidine (Famotidine 20 Mg Tablet) 40 mg PO BEDTIME [facility] Ferrous Sulfate (Ferrous Sulfate 324 Mg Tablet.) 324 mg PO DAILY [facility] Glucose (Glucose Gel 15 Gm Gel..Gram.) 15 gm PO Q15M PRN; Protocol PRN Reason: per Hypoglycemia Standing Ord. Insulin Human Lispro (Insulin Lispro 100 Unit/Ml 3 Ml Vial) 0 unit SUBCUT QIDACHS [facility]; Protocol Magnesium Oxide (Magnesium Oxide 400 Mg Tablet) 200 mg PO BID [facility] Metoclopramide HCl (Metoclopramide Hcl 5 Mg Tablet) 5 mg PO TID [facility] Last Admin: 08/12/23 15:05 Dose: 5 mg Omeprazole (Omeprazole 40 Mg Capsule.) 40 mg PO DAILY [facility] Ondansetron HCl (Ondansetron Hcl 4 Mg/2 Ml Vial) 4 mg IVPUSH Q8H PRN PRN Reason: Nausea and Vomiting Senna (Sennosides 8.6 Mg Tablet) 17.2 mg PO BID [facility] Sodium Chloride (0.9 % Sodium Chloride Flush 3 Ml Syringe) 3 ml IVFLUSH QSHIFT [facility] Last Admin: 08/12/23 09:52 Dose: 3 ml Tamoxifen Citrate (Tamoxifen Citrate 10 Mg Tablet) 20 mg PO BEDTIME [facility] Home Medications Medication Instructions Recorded Confirmed Last Taken Type lancets 33 gauge #100 ea 04/09/20 04/28/23 Unknown History pen needle, diabetic 32 gauge x #50 ea 04/09/20 04/28/23 Unknown History acetaminophen 650 mg 650 mg PO Q8H PRN moderate pain 09/15/22 08/11/23 Unknown History tablet,extended release atorvastatin 40 mg tablet 40 mg PO BEDTIME 08/11/23 08/11/23 08/10/23 History bismuth subsalicylate 262 mg/15 mL 15 mg PO QID PRN upset stomach 08/11/23 08/11/23 Unknown History oral suspension (Pepto-Bismol) insulin glargine U-300 conc 300 65 unit subcut DAILY 08/11/23 08/11/23 08/10/23 History unit/mL (3 mL) subcutaneous pen (Toujeo Max U-300 SoloStar) omeprazole 40 mg capsule,delayed 40 mg PO DAILY 08/11/23 08/11/23 08/10/23 History release tamoxifen 20 mg tablet 20 mg PO BEDTIME 08/11/23 08/11/23 08/10/23 History Physical Exam Vital Signs: Vital Signs: Last Vital Signs Temp 99.4 F 08/12/23 15:10 Pulse 77 08/12/23 15:10 Resp 20 08/12/23 15:10 BP 172/68 H 08/12/23 15:10 Pulse Ox 97 08/12/23 15:10 O2 Del Method Room Air 08/12/23 15:10 O2 Flow Rate 2 08/11/23 18:44 BMI result Body Mass Index 32.7 Neuro: Other: Quite drowsy but I was able to wake her up. She made eye contact and was not following one-step commands. Some of her conversation was making sense and she seem to understand or comprehend. She was not moving her left side as well as right side. Face seems to be symmetrical. Visual jamison were difficult to determine. Exam was limited. Results Labs 08/12/23 07:35 08/12/23 07:35 Labs: Short CBC 08/12/23 Range/Units 07:35 WBC 8.9 (4.8-10.8) X10*3/uL Hgb 11.5 L (12.0-16.0) g/dl Hct 34.1 L (37.0-47.0) % Plt Count 239 (160-400) X10*3/uL BMP 08/12/23 07:35 Sodium 143 Potassium 4.4 Chloride 108 Carbon Dioxide 23 BUN 24 H Creatinine 1.42 H Calcium 9.7 Liver Function 08/12/23 Range/Units 07:35 Total Bilirubin 0.4 (0.0-1.0) mg/dL AST 24 (5-31) U/L ALT 25 (0-31) U/L Alkaline Phosphatase 81 (39-117) U/L Albumin 3.3 L (3.5-5.0) g/dL Her MRI of brain revealed a large right thalamic acute ischemic infarct with multiple bilateral chronic similar ischemic infarctions. Microbiology Microbiology Results: Microbiology 08/11/23 11:30 Blood - Venous Blood Culture - Preliminary No growth after 24 hours. 08/11/23 10:28 Blood - Venous Blood Culture - Preliminary No growth after 24 hours. 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 This would result in left hemiparesis and significant cognitive changes or dysfunction. Mainstay of management is avoidance for further complications such as DVT or pneumonia or UTI, anti-platelet agent, but more importantly blood pressure control, and statin. She would likely not go back to her baseline cognitive functioning. Appropriate residential placement is recommended. If needed, there is no contraindication to anticoagulation, but in that case I would discontinue anti-platelet agent. Procedures Date of Service Date of Service: 08/12/23
--- NOTE | 2023-08-12 16:41 | MHC.SL.SWA ---
Speech Pathologist Impression:Oral phase dysphagia Risk of Aspiration Due to: Neurological Condition Reduced Cognition Dysphasia Diet Status: Start on NDD3 Liquid Consistency and Strategies for Safe Swallow: Liquid Intake Recommendation: Thin Liquid Intake Strategies: Small Sips Solid Food Consistency: Dietary Recommendations: Chopped/Advanced (NDD3) Additional Modifications to Solid Foods: Patient seen for bedside dysphagia evaluation. Patient presents with mild oral phase dysphagia characterized by prolonged period of mastication and minimal oral residuals post-swallow. She was able to clear residue with liquid wash. All other aspects of swallow deemed to be WFL. No evidence of aspiration with intake of liquids and solids. Recommend UPGRADE from NPO, START on CHOPPED/ADVANCED (NDD3) diet and THIN liquids, pills WHOLE in LIQUID. Patient attempts to feed herself, but drops and spills food/liquid on herself. She will require direct supervision, provide assistance feeding as needed. Oral Medication Intake: Whole with Liquid Please contact the pharmacy regarding appropriate crushable or liquid drug formulations that are available whenever modified delivery is recommended. Compensatory Strategies and Precautions to be Taken for Safe Swallow: Sitting Upright (90 deg) Double Swallow Small Bites and Sips Alternate Liquids/Solids Rate of Ingestion Change Avoid Specific Foods Supervision While Eating and Drinking for Safe Swallow: Total Assistance (1:1) Foods to Avoid: Hard tough to chew solids; mixed textures Swallowing Recommended Treatments: Compens. Strategy Educat. Recommendation for Speech: Inpatient Speech Therapy Frequency/Duration: M-F PRN Date Range for Service Req: Timeline to reassess: Form Setter Supervisor Clinican/Clinical Fellow: No Supervisory Statement: I have reviewed and agree with the student/clinical fellow's documentation: N/A Speech Language Pathologist: Alisha George M.A., CCC-ETHICS INSTRUCTOR
[2023-08-12 21:05] LABS: Glucose, Whole Blood 270 mg/dL (60-115)
[2023-08-12] MEDS: Famotidine 20 MG TABLET 40 MG PO (22:41)
[2023-08-12] MEDS: Tamoxifen Citrate 10 MG TABLET 20 MG PO (22:41)
[2023-08-12] MEDS: Atorvastatin Calcium 80 MG TABLET PO (22:41)
[2023-08-12] MEDS: Magnesium Oxide 400 MG TABLET 200 MG PO (22:41)
[2023-08-12] MEDS: Sennosides 8.6 MG TABLET 17.2 MG PO (22:41)
[2023-08-12] MEDS: Apixaban 5 MG TABLET PO (22:54)
[2023-08-13] VITALS (8 sets, daily range): BP systolic 146–207; BP diastolic 66–72; PULSE 73–88; RESP 16–18; TEMP 35.8–37; O2SAT 94–96
[2023-08-13 08:06] LABS: Mean Corpuscular HGB Conc 34.4 g/dl (31.0-35.0); Mean Corpuscular Hemoglobin 29.5 pg (27.0-33.0); Mean Corpuscular Volume 85.8 fL (80.0-98.0); Mean Platelet Volume 10.6 fL (9.4-12.3); Platelet Count 227 X10*3/uL (160-400); Red Blood Count 3.73 X10*6/uL (4.20-5.50); Red Cell Distribution Width 12.7 % (11.0-16.0); White Blood Count 8.7 X10*3/uL (4.8-10.8)
[2023-08-13 08:22] LABS: Anion Gap 14 (12-20); Blood Urea Nitrogen 27 mg/dL (9-16); Calcium 9.4 mg/dL (8.4-10.2); Carbon Dioxide 22 mmol/L (22-29); Chloride 106 mmol/L (96-108); Creatinine Clr Calc Pharmacy 30.9; Estimated Glomerular Filt Rate 31; Potassium 4.2 mmol/L (3.3-5.1); Sodium 138 mmol/L (135-145)
[2023-08-13 08:29] LABS: Glucose Random 356 mg/dL (60-115)
[2023-08-13 08:45] LABS: Glucose, Whole Blood 279 mg/dL (60-115)
[2023-08-13] MEDS: Magnesium Oxide 400 MG TABLET 200 MG PO ×2 (08:48→21:03)
[2023-08-13] MEDS: Omeprazole 40 MG CAPSULE.DR PO (08:48)
[2023-08-13] MEDS: Ferrous Sulfate 324 MG TABLET.DR PO (08:48)
[2023-08-13] MEDS: 0.9 % Sodium Chloride Flush 3 ML SYRINGE IVFLUSH ×2 (08:49→15:30)
[2023-08-13] MEDS: Insulin Lispro 100 UNIT/ML 3 ML VIAL SUBCUT ×4 (08:49→21:13)
[2023-08-13] MEDS: Apixaban 5 MG TABLET PO ×2 (08:49→21:22)
[2023-08-13] MEDS: Sennosides 8.6 MG TABLET 17.2 MG PO (08:49)
[2023-08-13] MEDS: Metoclopramide HCl 5 MG TABLET PO ×3 (08:49→21:03)
[2023-08-13] MEDS: Insulin Glargine,Hum.rec.anlog 100 UNIT/ML 10 ML VIAL 10 UNIT SUBCUT (10:52)
--- NOTE | 2023-08-13 11:47 | HO.PM.IMPN ---
Subjective Subjective Date of Service: 08/13/23 Interval History: seen and examined this morning follow up for acute stroke history obtained with assistance of drawer hardware worker spontaneously moving left arm and leg, still difficult to understand, but seems less confused Review of Systems Review of Systems: Yes all other systems are reviewed and are negative Constitutional Constitutional: Denies chills and Denies fever(s) Cardiovascular Cardiovascular: Denies chest pain Neurologic Neurologic: Reports confusion Psychiatric Psychiatric: Reports confusion Physical Exam Vital Signs: Vital Signs: Last Vital Signs Temp 97.6 F 08/13/23 11:25 Pulse 87 08/13/23 11:25 Resp 16 08/13/23 11:25 BP 181/71 H 08/13/23 11:25 Pulse Ox 95 08/13/23 11:25 O2 Del Method Room Air 08/13/23 11:25 O2 Flow Rate 2 08/11/23 18:44 BMI result Body Mass Index 32.7 Const: Other: easily arousable to verbal stimuli General: cooperative, comfortable, no acute distress and confusion Nutritional Appearance: overweight Orientation/consciousness: confusion Resp: Effort & Inspection: normal respiratory effort, able to speak in complete sentences, no respiratory distress and no use of accessory muscles Cardio: Rate: regular rate GI: Inspection: No distended Palpation (GI): Soft to palpation and nontender Neuro: Other: spontaneously moving left arm and leg today; more awake, less confused; still difficult to understand General: confusion Extrem: General: Yes no pedal edema Objective Data Active Medications Acetaminophen (Acetaminophen Supp 650 Mg Supp.Rect) 650 mg [place] Q6H PRN PRN Reason: Pain, Mild (Pain Scale 1-3) Apixaban (Apixaban 5 Mg Tablet) 5 mg PO BID [facility] Last Admin: 08/13/23 08:49 Dose: 5 mg Documented By: KATERINA Atorvastatin Calcium (Atorvastatin Calcium 80 Mg Tablet) 80 mg PO BEDTIME [facility] Last Admin: 08/12/23 22:41 Dose: 80 mg Documented By: PARRIS Dextrose (Dextrose 50 % 25 Gm/50 Ml Syringe) 25 gm IVPUSH Q15M PRN; Protocol PRN Reason: per Hypoglycemia Standing Ord. Famotidine (Famotidine 20 Mg Tablet) 40 mg PO BEDTIME [facility] Last Admin: 08/12/23 22:41 Dose: 40 mg Documented By: PARRIS Ferrous Sulfate (Ferrous Sulfate 324 Mg Tablet.) 324 mg PO DAILY [facility] Last Admin: 08/13/23 08:48 Dose: 324 mg Documented By: KATERINA Glucose (Glucose Gel 15 Gm Gel..Gram.) 15 gm PO Q15M PRN; Protocol PRN Reason: per Hypoglycemia Standing Ord. Insulin Glargine (Insulin Glargine,Hum.Rec.Anlog 100 Unit/Ml 10 Ml Vial) 10 unit SUBCUT DAILY [facility] Last Admin: 08/13/23 10:52 Dose: 10 unit Documented By: KATERINA Insulin Human Lispro (Insulin Lispro 100 Unit/Ml 3 Ml Vial) 0 unit SUBCUT QIDACHS [facility]; Protocol Last Admin: 08/13/23 08:49 Dose: 10 unit Documented By: KATERINA Magnesium Oxide (Magnesium Oxide 400 Mg Tablet) 200 mg PO BID [facility] Last Admin: 08/13/23 08:48 Dose: 200 mg Documented By: KATERINA Metoclopramide HCl (Metoclopramide Hcl 5 Mg Tablet) 5 mg PO TID [facility] Last Admin: 08/13/23 08:49 Dose: 5 mg Documented By: KATERINA Omeprazole (Omeprazole 40 Mg Capsule.) 40 mg PO DAILY [facility] Last Admin: 08/13/23 08:48 Dose: 40 mg Documented By: KATERINA Ondansetron HCl (Ondansetron Hcl 4 Mg/2 Ml Vial) 4 mg IVPUSH Q8H PRN PRN Reason: Nausea and Vomiting Senna (Sennosides 8.6 Mg Tablet) 17.2 mg PO BID [facility] Last Admin: 08/13/23 08:49 Dose: 17.2 mg Documented By: KATERINA Sodium Chloride (0.9 % Sodium Chloride Flush 3 Ml Syringe) 3 ml IVFLUSH QSHIFT [facility] Last Admin: 08/13/23 08:49 Dose: 3 ml Documented By: KATERINA Tamoxifen Citrate (Tamoxifen Citrate 10 Mg Tablet) 20 mg PO BEDTIME [facility] Last Admin: 08/12/23 22:41 Dose: 20 mg Documented By: PARRIS Labs 08/13/23 07:47 08/13/23 07:47 Labs: Laboratory Results - last 24 hr 08/12/23 08/12/23 08/13/23 15:27 20:37 07:47 MCV 85.8 MCH 29.5 MCHC 34.4 RDW 12.7 Plt Count 227 MPV 10.6 Absolute Nucleated RBC 0.000 Nucleated RBC % (auto) 0.0 Anion Gap 14 Estim Creat Clear Calc 30.9 Estimated GFR 31 POC Glucose 269 H 270 H Random Glucose 356 H* Calcium 9.4 08/13/23 08:40 MCV MCH MCHC RDW Plt Count MPV Absolute Nucleated RBC Nucleated RBC % (auto) Anion Gap Estim Creat Clear Calc Estimated GFR POC Glucose 279 H Random Glucose Calcium Microbiology Microbiology Results: Microbiology 08/11/23 11:30 Blood Culture - Preliminary Blood - Venous No growth after 24 hours. 08/11/23 10:28 Blood Culture - Preliminary Blood - Venous No growth after 24 hours. Assessment and Plan (1) Acute stroke due to ischemia: Status: Acute Plan This is a 77 year old [place]ian Speaking female with history of afib on eliquis (unclear last dose), found unresponsive and brought to the ED for evaluation found to have left side weakness concerning for stoke acute ischemic stroke brain ct negative for hemorrhage or other acute pathology; cta head/neck negative for LVO or stenosis but MRI confirms 1.9 cm infarct involving the right thalamus and posterior limb of the right internal capsule. no mass effect, no hemorrhagic transformation LKWT 6pm 08/09 - out of the window for tpa initially failed bedside swallow 08/10, was seen by speech 08/11 and was able to tolerate modified diet seen by PT/OT - rec STR upon discharge seen by neurology - rec to continue Eliquis lipid profile obtained, LDL 63, increase lipitor to 80 mg for acute stroke echo with hyperdynamic EF, increase left ventricular wall thickness DM with gastroparesis Hba1c 7.9 will start modified diabetic diet as recommended by speech therapy follow POCs, SSI coverage as needed resume reglan resume basal insulin at lower dose and up titrate as po intake improves paroxysmal atrial fibrillation continue eliquis resume metoprolol EKG in sinus rhythm HTN bp elevated on arrival improved without intervention bp meds initially held to allow for permissive HTN in the setting of acute stroke hold valsartan resume metoprolol, amlodipine follow bp closely morbid obesity - BMI 37.8 likely contributing to co-morbidities chronic constipation linzess is NF h/o breast ca continue tamoxifen gerd continue omeprazole CKD3b renal function near baseline follow bmp dvt ppx - eliquis requires ongoing hospital stay for close monitoring in the setting acute stroke with need for close neurological monitoring, specialist evaluation, frequent neuro checks, safe disposition Quality Stroke Does the patient have a stroke diagnosis?: No VTE Prior VTE?: No VTE Risk Level:: Medical - moderate - high VTE Device Contraindication: N/A - Device Ordered VTE Drug Contraindication: N/A - Med Ordered
[2023-08-13 12:00] LABS: Glucose, Whole Blood 276 mg/dL (60-115)
[2023-08-13] MEDS: amLODIPine Besylate 5 MG TABLET PO (12:26)
[2023-08-13] MEDS: Metoprolol Succinate ER 100 MG TAB.ER.24H PO (12:26)
[2023-08-13 17:06] LABS: Glucose, Whole Blood 312 mg/dL (60-115)
[2023-08-13 21:03] LABS: Glucose, Whole Blood 310 mg/dL (60-115)
[2023-08-13] MEDS: Tamoxifen Citrate 10 MG TABLET 20 MG PO (21:03)
[2023-08-13] MEDS: Famotidine 20 MG TABLET 40 MG PO (21:03)
[2023-08-13] MEDS: Atorvastatin Calcium 80 MG TABLET PO (21:03)
[2023-08-14] VITALS: BP 160/64; PULSE 67; RESP 20; TEMP 36.3; O2SAT 93
[2023-08-14] MEDS: 0.9 % Sodium Chloride Flush 3 ML SYRINGE IVFLUSH ×2 (00:01→08:22)
[2023-08-14 04:00] VITALS: BP 171/70; PULSE 70; RESP 20; TEMP 36.1; O2SAT 96
[2023-08-14 07:34] VITALS: BP 154/64; PULSE 74; RESP 20; TEMP 36.2; O2SAT 97
[2023-08-14 07:50] LABS: Glucose, Whole Blood 380 mg/dL (60-115)
[2023-08-14] MEDS: Insulin Glargine,Hum.rec.anlog 100 UNIT/ML 10 ML VIAL 15 UNIT SUBCUT (08:20)
[2023-08-14] MEDS: Metoclopramide HCl 5 MG TABLET PO ×3 (08:21→20:46)
[2023-08-14] MEDS: amLODIPine Besylate 5 MG TABLET PO (08:21)
[2023-08-14] MEDS: Ferrous Sulfate 324 MG TABLET.DR PO (08:21)
[2023-08-14] MEDS: Sennosides 8.6 MG TABLET 17.2 MG PO (08:21)
[2023-08-14] MEDS: Insulin Lispro 100 UNIT/ML 3 ML VIAL SUBCUT ×5 (08:21→20:45)
[2023-08-14] MEDS: Metoprolol Succinate ER 100 MG TAB.ER.24H PO (08:22)
[2023-08-14] MEDS: Apixaban 5 MG TABLET PO ×2 (08:22→20:43)
[2023-08-14] MEDS: Magnesium Oxide 400 MG TABLET 200 MG PO ×2 (08:22→20:43)
[2023-08-14] MEDS: Omeprazole 40 MG CAPSULE.DR PO (08:22)
[2023-08-14 11:31] VITALS: BP 146/64; PULSE 82; RESP 20; TEMP 36.1; O2SAT 95
[2023-08-14 11:57] LABS: Glucose, Whole Blood 368 mg/dL (60-115)
[2023-08-14 12:37] LABS: Anion Gap 14 (12-20); Blood Urea Nitrogen 30 mg/dL (9-16); Calcium 9.7 mg/dL (8.4-10.2); Carbon Dioxide 25 mmol/L (22-29); Chloride 103 mmol/L (96-108); Creatinine Clr Calc Pharmacy 25.2; Estimated Glomerular Filt Rate 24; Potassium 4.9 mmol/L (3.3-5.1); Sodium 137 mmol/L (135-145)
[2023-08-14 12:41] LABS: Glucose Random 395 mg/dL (60-115)
--- NOTE | 2023-08-14 12:45 | P.PNIM_ITS ---
Subjective Subjective Date of Service: 08/14/23 Interval History: seen and examined this morning follow up for acute stroke history obtained with assistance of spanish linguist awake, alert, sitting up on the side of the bed and eating breakfast continues with spontaneous movement of left arm and leg confused about being in the hospital, frequently asking for her daughter - otherwise she denies any abdominal pain Review of Systems Review of Systems: Yes all other systems are reviewed and are negative Cardiovascular Cardiovascular: Denies chest pain Gastrointestinal Gastrointestinal: Denies abdominal pain Neurologic Neurologic: Reports confusion Psychiatric Psychiatric: Reports confusion Physical Exam 2 Vital Signs: Vital Signs: Last Vital Signs Temp 97.0 F 08/14/23 11:31 Pulse 82 08/14/23 11:31 Resp 20 08/14/23 11:31 BP 146/64 H 08/14/23 11:31 Pulse Ox 95 08/14/23 11:31 O2 Del Method Room Air 08/14/23 11:31 O2 Flow Rate 2 08/11/23 18:44 BMI result Body Mass Index 32.7 Const: General: cooperative, comfortable, no acute distress, alert, awake and confusion Nutritional Appearance: obese Orientation/consciousness: o riented to person and confusion Resp: Effort & Inspection: normal respiratory effort, able to speak in complete sentences, no respiratory distress and no use of accessory muscles A uscultation: clear to auscultation bilaterally Cardio: Rate: regular rate GI: Inspection: No distended Palpation (GI): Soft to palpation and nontender Neuro: Other: able to move all 4 extremities spontaneously General: oriented to person and confusion Extrem: General: Yes no pedal edema Objective Data Active Medications Acetaminophen (Acetaminophen 325 Mg Tablet) 325 mg PO Q6H PRN PRN Reason: Pain, Mild (Pain Scale 1-3) Amlodipine Besylate (Amlodipine Besylate 5 Mg Tablet) 5 mg PO DAILY [facility]; Protocol Last Admin: 08/14/23 08:21 Dose: 5 mg Documented By: YAS Apixaban (Apixaban 5 Mg Tablet) 5 mg PO BID [facility] Last Admin: 08/14/23 08:22 Dose: 5 mg Documented By: YAS Atorvastatin Calcium (Atorvastatin Calcium 80 Mg Tablet) 80 mg PO BEDTIME [facility] Last Admin: 08/13/23 21:03 Dose: 80 mg Documented By: MAREN Dextrose (Dextrose 50 % 25 Gm/50 Ml Syringe) 25 gm IVPUSH Q15M PRN; Protocol PRN Reason: per Hypoglycemia Standing Ord. Famotidine (Famotidine 20 Mg Tablet) 40 mg PO BEDTIME [facility] Last Admin: 08/13/23 21:03 Dose: 40 mg Documented By: MAREN Ferrous Sulfate (Ferrous Sulfate 324 Mg Tablet.) 324 mg PO DAILY [facility] Last Admin: 08/14/23 08:21 Dose: 324 mg Documented By: YAS Glucose (Glucose Gel 15 Gm Gel..Gram.) 15 gm PO Q15M PRN; Protocol PRN Reason: per Hypoglycemia Standing Ord. Lactated Ringer's (Lr) 1,000 mls @ 100 mls/hr IVCONT .Q10H [facility] Insulin Glargine (Insulin Glargine,Hum.Rec.Anlog 100 Unit/Ml 10 Ml Vial) 20 unit SUBCUT DAILY [facility] Insulin Human Lispro (Insulin Lispro 100 Unit/Ml 3 Ml Vial) 0 unit SUBCUT QIDACHS [facility]; Protocol Last Admin: 08/14/23 11:52 Dose: 10 unit Documented By: YAS Insulin Human Lispro (Insulin Lispro 100 Unit/Ml 3 Ml Vial) 5 unit SUBCUT TIDAC [facility] Magnesium Oxide (Magnesium Oxide 400 Mg Tablet) 200 mg PO BID [facility] Last Admin: 08/14/23 08:22 Dose: 200 mg Documented By: YAS Metoclopramide HCl (Metoclopramide Hcl 5 Mg Tablet) 5 mg PO TID [facility] Last Admin: 08/14/23 08:21 Dose: 5 mg Documented By: YAS Metoprolol Succinate (Metoprolol Succinate Er 100 Mg Tab.Er.24h) 100 mg PO DAILY [facility]; Protocol Last Admin: 08/14/23 08:22 Dose: 100 mg Documented By: YAS Omeprazole (Omeprazole 40 Mg Capsule.) 40 mg PO DAILY [facility] Last Admin: 08/14/23 08:22 Dose: 40 mg Documented By: YAS Ondansetron HCl (Ondansetron Hcl 4 Mg/2 Ml Vial) 4 mg IVPUSH Q8H PRN PRN Reason: Nausea and Vomiting Senna (Sennosides 8.6 Mg Tablet) 17.2 mg PO BID [facility] Last Admin: 08/14/23 08:21 Dose: 17.2 mg Documented By: YAS Sodium Chloride (0.9 % Sodium Chloride Flush 3 Ml Syringe) 3 ml IVFLUSH QSHIFT [facility] Last Admin: 08/14/23 08:22 Dose: 3 ml Documented By: YAS Tamoxifen Citrate (Tamoxifen Citrate 10 Mg Tablet) 20 mg PO BEDTIME [facility] Last Admin: 08/13/23 21:03 Dose: 20 mg Documented By: MAREN Labs 08/13/23 07:47 08/14/23 12:11 Labs: Laboratory Results - last 24 hr 08/13/23 08/13/23 08/14/23 16:59 20:59 07:37 Hold Purple Top Anion Gap Estim Creat Clear Calc Estimated GFR POC Glucose 312 H 310 H 380 H* Random Glucose Calcium 08/14/23 08/14/23 11:27 12:11 Hold Purple Top SEE NOTE Anion Gap 14 Estim Creat Clear Calc 25.2 Estimated GFR 24 POC Glucose 368 H* Random Glucose 395 H* Calcium 9.7 Microbiology Microbiology Results: Microbiology 08/11/23 11:30 Blood Culture - Preliminary Blood - Venous No growth after 48 hours. 08/11/23 10:28 Blood Culture - Preliminary Blood - Venous No growth after 48 hours. Assessment and Plan (1) Acute stroke due to ischemia: Status: Acute (2) CASS (acute kidney injury): Status: Acute Plan This is a 77 year old [place]ian Speaking female with history of afib on eliquis (unclear last dose), found unresponsive and brought to the ED for evaluation found to have left side weakness concerning for stoke acute ischemic stroke brain ct negative for hemorrhage or other acute pathology; cta head/neck negative for LVO or stenosis but MRI confirms 1.9 cm infarct involving the right thalamus and posterior limb of the right internal capsule. no mass effect, no hemorrhagic transformation LKWT 6pm 08/09 - out of the window for tpa initially failed bedside swallow 08/10, was seen by speech 08/11 and was able to tolerate modified diet seen by PT/OT - rec STR upon discharge seen by neurology - rec to continue Eliquis lipid profile obtained, LDL 63, increase lipitor to 80 mg for acute stroke echo with hyperdynamic EF, increase left ventricular wall thickness DM with gastroparesis Hba1c 7.9 continue modified diabetic diet POCs starting to increase as pt able to tolerate food increase lantus, start premeal insulin, on high doses of insulin at baseline, will likely need further titration follow POCs, SSI coverage as needed resume reglan CASS start IVF follow renal function paroxysmal atrial fibrillation continue eliquis resume metoprolol EKG in sinus rhythm HTN bp meds initially held to allow for permissive HTN in the setting of acute stroke resume metoprolol, amlodipine valsartan on hold for now, can resume if bp remains elevated follow bp closely morbid obesity - BMI 37.8 likely contributing to co-morbidities chronic constipation linzess is NF h/o breast ca continue tamoxifen gerd continue omeprazole CKD3b renal function near baseline follow bmp dvt ppx - eliquis requires ongoing hospital stay for close monitoring in the setting acute stroke with need for close neurological monitoring, specialist evaluation, frequent neuro checks, safe disposition Quality Stroke Does the patient have a stroke diagnosis?: No VTE Prior VTE?: No VTE Risk Level:: Medical - moderate - high VTE Device Contraindication: N/A - Device Ordered VTE Drug Contraindication: N/A - Med Ordered
[2023-08-14] MEDS: Insulin Lispro 100 UNIT/ML 3 ML VIAL 6 UNIT SUBCUT (13:06)
[2023-08-14] MEDS: Lactated Ringers 1,000 ML 100 ML IVCONT (13:12)
--- NOTE | 2023-08-14 13:38 | MHC.CM.PN ---
CM discussed DC plan with pt's daughters, with the assistance of a quality assurance lab technician. Rec is for STR or home PT with 24 hr care. No HCP, and pt is too confused to sign one at this time. CM to call on Tuesday to: [facility] and Yesi Crum's office to ask if they have a HCP on file. If they do, STR, if they do not, then family will be with pt 24 hr, and PT to come from [facility].
[2023-08-14 15:35] VITALS: BP 135/60; PULSE 65; RESP 16; TEMP 36.4; O2SAT 98
[2023-08-14 15:49] LABS: Glucose, Whole Blood 262 mg/dL (60-115)
[2023-08-14 19:14] VITALS: BP 168/65; PULSE 70; RESP 18; TEMP 36.2; O2SAT 98
[2023-08-14 20:07] LABS: Glucose, Whole Blood 257 mg/dL (60-115)
[2023-08-14] MEDS: Famotidine 20 MG TABLET 40 MG PO (20:43)
[2023-08-14] MEDS: Atorvastatin Calcium 80 MG TABLET PO (20:44)
[2023-08-14] MEDS: Tamoxifen Citrate 10 MG TABLET 20 MG PO (20:46)
[2023-08-15] VITALS (8 sets, daily range): BP systolic 146–194; BP diastolic 50–102; PULSE 59–71; RESP 18–20; TEMP 36.2–37.1; O2SAT 96–99
[2023-08-15] MEDS: Lactated Ringers 1,000 ML 100 ML IVCONT (00:30)
[2023-08-15 07:40] LABS: Glucose, Whole Blood 353 mg/dL (60-115)
[2023-08-15] MEDS: Metoclopramide HCl 5 MG TABLET PO ×2 (08:34→15:13)
[2023-08-15] MEDS: amLODIPine Besylate 5 MG TABLET PO (08:34)
[2023-08-15] MEDS: Apixaban 5 MG TABLET PO (08:34)
[2023-08-15] MEDS: Omeprazole 40 MG CAPSULE.DR PO (08:34)
[2023-08-15] MEDS: Ferrous Sulfate 324 MG TABLET.DR PO (08:34)
[2023-08-15] MEDS: Metoprolol Succinate ER 100 MG TAB.ER.24H PO (08:34)
[2023-08-15] MEDS: Magnesium Oxide 400 MG TABLET 200 MG PO (08:34)
[2023-08-15] MEDS: Insulin Glargine,Hum.rec.anlog 100 UNIT/ML 10 ML VIAL 25 UNIT SUBCUT (08:37)
[2023-08-15] MEDS: Insulin Lispro 100 UNIT/ML 3 ML VIAL SUBCUT ×6 (08:38→17:12)
[2023-08-15 08:45] LABS: Anion Gap 14 (12-20); Blood Urea Nitrogen 26 mg/dL (9-16); Calcium 9.2 mg/dL (8.4-10.2); Carbon Dioxide 25 mmol/L (22-29); Chloride 105 mmol/L (96-108); Creatinine Clr Calc Pharmacy 29.7; Estimated Glomerular Filt Rate 29; Glucose Random 397 mg/dL (60-115); Potassium 4.6 mmol/L (3.3-5.1); Sodium 139 mmol/L (135-145)
[2023-08-15 10:58] LABS: Glucose, Whole Blood 362 mg/dL (60-115)
--- NOTE | 2023-08-15 13:43 | MHC.CM.PN ---
Pt more awake and alert today, able to make needs/wishes known, verbalized wanting her daughters as her HCP, this CM assisted pt in completing HCP form now on file. Second IMM given 08/14. Pt is medically cleared for D/C to [facility], pt and her daughter Camila present at bedside have accepted bed offer from [facility]. Pt will be accepted there today under insurance waiver. Transport set up via BLS/Diane at 4:30pm today.
--- NOTE | 2023-08-15 13:47 | P.DS_ITS ---
DS: Providers Provider Date of Service: 08/15/23 Date of admission: 08/11/23 17:13 Primary care physician: Lois Salazar MD Consults: 08/11/23 17:15 Consult to Neurology Routine Consulting Provider: Luli Matta Reason for consultation: AMS, ?stroke Has provider been notified: No 08/14/23 08:16 Consult for Sitter Routine Reason for consultation: impulsive/unsteady gait Has provider been notified: Yes DS: Diagnosis Discharge Diagnosis (1) Acute stroke due to ischemia: Status: Acute (2) CASS (acute kidney injury): Status: Acute DS: Summary Hospital Course Hospital Course: History and physical as per admitting provider. This is a 77-year-old Latvian- speaking female who was brought to the emergency department after being found unresponsive. History was obtained via veterinary hospital shift lead from 2 of her daughters at the bedside. She was reportedly in her usual state of health when her daughter left at 18:00 last night. At baseline patient is awake alert, ambulates with walker and able to carry on full conversation. This morning when her daughter arrived she was unable to wake her up. She called 911 and had her brought to the emergency room. Patient has history of hypoglycemia, but upon EMS arrival her blood sugar was 220. On arrival to the ED, she was drooling and unable to participate in neuro exam. Brain CT was negative. CBC, chemistries all within normal limits. CXR negative. No evidence of co2 retention. CTA of head and neck was negative for LVO or stenosis. She woke up a little and was noted to have left sided weakness concerning for possible stroke. She was able to follow some simple commands but is not able to answer questions at this time; unable to obtain ROS. 77-year-old woman treated for acute ischemic stroke. Patient presented with left-sided weakness. MRI showing 1.9 cm acute infarct involving the right thalamus and posterior limb of the right internal capsule. She was seen and evaluated by Neurology who recommended continuance of Eliquis and increase in statin. She was seen and evaluated by Physical therapy. She was able to stand up from a chair on her own and began to walk, continues with some minimal left- sided deficits and decreased safety. Recommendation was for rehab versus home. LDL 63, echo showing hyperdynamic EF with increased left ventricular wall thickness. Plan is for transfer to rehab for physical therapy. Diabetes mellitus type 2 with gastroparesis. Continue home medications CASS on CKD stage 3. Treated with IV fluids. Check BMP in 2 days Paroxysmal atrial fibrillation. Continue Eliquis and metoprolol Hypertension continue metoprolol, valsartan and amlodipine Morbid obesity. BMI 37.8. Discussed importance of weight management as this may be contributing to worsening of other comorbidities Chronic constipation. Continue Linzess History of breast cancer. Continue tamoxifen GERD. Continue PPI Time Attestation Discharge Coordination Time (in mins): 45 Quality: Safe Use of Opioids Does Pt have an Active Cancer Diagnosis on the Problem List?: No Quality: Stroke Does the patient have a stroke diagnosis?: Yes Reason for No Anti-thrombotic at DC: Contraindicated (on eliquis ) Reason for No Anticoagulant at DC: N/A - Med Ordered Reason Not Initiating IV-Tpa: Not indicated Reason for No Anti-thrombotic by Day Two: Not indicated Reason for No Statin at DC: N/A - Med Ordered Physical Exam Vital Signs: Vital Signs: Last Vital Signs Temp 97.1 F 08/15/23 10:45 Pulse 68 08/15/23 10:45 Resp 20 08/15/23 10:45 BP 148/68 H 08/15/23 10:45 Pulse Ox 96 08/15/23 10:45 O2 Del Method Room Air 08/15/23 10:45 O2 Flow Rate 2 08/11/23 18:44 BMI result Body Mass Index 32.7 Appearing in no acute distress head is normocephalic atraumatic eyes pupils are PERRLA sclera is anicteric mouth throat mucous membranes are intact and moist neck is supple no lymphadenopathy, no JVD noted lung sounds are clear to auscultation heart regular rate rhythm, clear S1, S2 positive bowel sounds, abdomen is soft, nontender neuro patient is alert x3, no focal deficits. minimal ledt sided weakness DS: Data Data Completed and Pending Labs on day of discharge: Laboratory Results - last 24 hr 08/14/23 08/14/23 08/15/23 15:40 20:03 07:09 Hold Purple Top Sodium Potassium Chloride Carbon Dioxide Anion Gap BUN Creatinine Estim Creat Clear Calc Estimated GFR POC Glucose 262 H 257 H 353 H* Random Glucose Calcium 08/15/23 08/15/23 08:03 10:46 Hold Purple Top SEE NOTE Sodium 139 Potassium 4.6 Chloride 105 Carbon Dioxide 25 Anion Gap 14 BUN 26 H Creatinine 1.69 H Estim Creat Clear Calc 29.7 Estimated GFR 29 POC Glucose 362 H* Random Glucose 397 H* Calcium 9.2 Preliminary micro results at discharge 08/11/23 11:30 Blood Culture - Preliminary Blood - Venous No growth after 48 hours. 08/11/23 10:28 Blood Culture - Preliminary Blood - Venous No growth after 48 hours. Discharge Plan Discharge Anticipated Discharge Date/Time: 08/15/23 13:29 Patient Disposition: Xfer Inpatient Rehab Fac Discharge Diagnosis: Acute Ischemic stroke CASS Referrals: [facility] [Outside] - 1 Week Lois Salazar MD [Primary Care Provider] - 1 Week Discharge Medications: New atorvastatin 80 mg Tablet 80 mg PO BEDTIME Qty: 30 0RF Continued (DME) diabetic shoes with 3 inserts 8 See Rx Instructions .Route .MEDSUPPLY Qty: 3 0RF Rx Instructions: As directed (DME) blood-glucose meter [FreeStyle Precision En Meter] Misc See Rx Instructions .Route Qty: 1 0RF Rx Instructions: Tests 4 X/day Eliquis 5 mg tablet 5 mg PO BID 90 Days Qty: 180 3RF metoprolol succinate [Toprol XL] 100 mg tablet extended release 24 hr 100 mg PO DAILY 90 Days Qty: 90 2RF (DME) lancets [TRUEplus Lancets] 33 gauge misc See Rx Instructions .ROUTE .COMPLEX Qty: 100 4RF Dose Instruction: TEST BLOOD SUGAR FOUR TIMES DAILY Rx Instructions: TEST BLOOD SUGAR FOUR TIMES DAILY (DME) FreeStyle Carola 2 [place] Misc See Rx Instructions .Route Qty: 1 0RF Rx Instructions: As directed (DME) pen needle, diabetic [UltiCare Pen Needle] 32 gauge x 32 needle See Rx Instructions .ROUTE .COMPLEX Qty: 200 4RF Dose Instruction: USE THREE TIMES DAILY Rx Instructions: USE THREE TIMES DAILY cholecalciferol (vitamin D3) [Vitamin D3] 25 mcg (1,000 unit) capsule 25 mcg PO DAILY Qty: 30 11RF magnesium oxide 250 mg magnesium tablet 250 mg PO BID Qty: 180 2RF valsartan 320 mg tablet 320 mg PO DAILY Qty: 90 2RF amlodipine 5 mg tablet 5 mg PO DAILY 90 Days Qty: 90 1RF (DME) FreeStyle Precision En Strips Strip See Rx Instructions .ROUTE .COMPLEX Qty: 100 4RF Dose Instruction: TEST BLOOD SUGAR FOUR TIMES DAILY Rx Instructions: TEST BLOOD SUGAR FOUR TIMES DAILY (DME) FreeStyle Carola 2 Sensor Kit See Rx Instructions .ROUTE .COMPLEX Qty: 2 5RF Dose Instruction: USE DIRECTED. CHANGE EVERY 2 WEEKS Rx Instructions: USE DIRECTED. CHANGE EVERY 2 WEEKS famotidine 40 mg tablet 40 mg PO BEDTIME Qty: 30 6RF metoclopramide HCl 5 mg tablet 5 mg PO TID Qty: 90 6RF ferrous sulfate 325 mg (65 mg iron) tablet 325 mg PO DAILY 90 Days Qty: 90 3RF omeprazole 40 mg capsule,delayed release(DR/EC) 40 mg PO DAILY bismuth subsalicylate [Pepto-Bismol] 262 mg/15 mL Suspension 15 mg PO QID PRN (Reason: upset stomach) insulin glargine U-300 conc [Toujeo Max U-300 SoloStar] 300 unit/mL (3 mL) insulin pen 65 unit subcut DAILY tamoxifen 20 mg tablet 20 mg PO BEDTIME hydroxyzine HCl 25 mg tablet 25 mg PO BID PRN (Reason: itching) 30 Days Qty: 60 2RF ondansetron 4 mg tablet,disintegrating 4 mg PO Q8H PRN (Reason: nausea and vomiting) 7 Days Qty: 21 0RF insulin lispro [Humalog KwikPen Insulin] 100 unit/mL insulin pen 35 unit subcut TID 30 Days Qty: 31.5 11RF Rx Instructions: Hold dinner humalog if sugar less than 200. (DME) cane Device See Rx Instructions .Route Qty: 1 0RF Rx Instructions: As directed sennosides [Whit-chitra] 8.6 mg tablet 17.2 mg PO BID 30 Days Qty: 120 6RF (DME) compr.stocking,knee,long,large Misc See Rx Instructions .ROUTE .MEDSUPPLY Qty: 12 0RF Rx Instructions: As directed (DME) pen needle, diabetic 32 gauge x 5/32 needle See Rx Instructions subcut .MEDSUPPLY Qty: 50 Rx Instructions: As directed (DME) lancets 33 gauge misc See Rx Instructions Not Applicable QID Qty: 100 Rx Instructions: As directed acetaminophen 650 mg tablet extended release 650 mg PO Q8H PRN (Reason: moderate pain) Linzess 72 mcg capsule 72 mcg PO QAM Qty: 30 6RF simethicone 180 mg capsule 180 mg PO TID Qty: 90 3RF Discontinued atorvastatin 40 mg tablet 40 mg PO BEDTIME Discharge Orders: Discharge Order (Routine); Ordered 08/15/23 Ordered By: Leydi Whalen Diet: Advance to usual diet Activity on Discharge: As tolerated Stand Alone Forms: Patient Portal Discharge page Other Ambulatory Orders: Basic Metabolic Panel (Routine) Timeframe: 2 Days Facility: [facility] - Location: Laboratory Ordered By: Leydi Whalen Care Plan Goals: increased atorvastatin to 80 mg at bedtime Health Concerns: Acute Ischemic stroke CASS Plan of Treatment: Follow up with primary care provider as needed Take all medications as prescribed Assessment: See discharge summary
[2023-08-15 15:42] LABS: Glucose, Whole Blood 261 mg/dL (60-115)
--- NOTE | 2023-08-15 16:06 | MHC.SL.SWA ---
Speech Pathologist Impression: WFL Risk of Aspiration Due to: Neurological Condition Reduced Cognition Dysphasia Diet Status: UPGRADE to REGULAR solids. Patient attempts to feed herself, but does still exhibit some difficulty bringing utensils to her mouth. Patient will need one-on-one assistance feeding. Liquid Consistency and Strategies for Safe Swallow: Liquid Intake Recommendation: Thin Liquid Intake Strategies: Small Sips Solid Food Consistency: Dietary Recommendations: Regular Oral Medication Intake: Whole with Liquid Please contact the pharmacy regarding appropriate crushable or liquid drug formulations that are available whenever modified delivery is recommended. Compensatory Strategies and Precautions to be Taken for Safe Swallow: Sitting Upright (90 deg) Small Bites and Sips Alternate Liquids/Solids Rate of Ingestion Change Supervision While Eating and Drinking for Safe Swallow: Total Assistance (1:1) Swallowing Recommended Treatments: Compens. Strategy Educat. Recommendation for Speech: D/C Inlayer Clinican/Clinical Fellow: No Supervisory Statement: I have reviewed and agree with the student/clinical fellow's documentation: N/A Speech Language Pathologist: Alisha George M.A., CCC-CLOTHING MANAGER
== END 2023-08-15 18:10 | DRG 65 ==
LOC: HO.ED 13:07 → HO.EDOVER 17:24 → HO.IMC 19:18
PROVIDERS: Admitting Provider Physician Assistant Medical; Emergency Provider Emergency Medicine; PCP Family Medicine; Visit Provider Nurse Practitioner Acute Care
DX: I63.9 Cerebral infarction, unspecified (principal); G81.94 Hemiplegia, unspecified affecting left nondominant side; N17.9 Acute kidney failure, unspecified; I12.9 Hypertensive chronic kidney disease with stage 1 through stage 4 chronic kidney disease, or unspecified chronic kidney disease; N18.32 Chronic kidney disease, stage 3b; E11.22 Type 2 diabetes mellitus with diabetic chronic kidney disease; E11.42 Type 2 diabetes mellitus with diabetic polyneuropathy; E11.43 Type 2 diabetes mellitus with diabetic autonomic (poly)neuropathy; C50.919 Malignant neoplasm of unspecified site of unspecified female breast; E66.01 Morbid (severe) obesity due to excess calories; K59.09 Other constipation; Z68.37 Body mass index [BMI] 37.0-37.9, adult; K31.84 Gastroparesis; R29.713 NIHSS score 13; I48.0 Paroxysmal atrial fibrillation; F03.90 Unspecified dementia, unspecified severity, without behavioral disturbance, psychotic disturbance, mood disturbance, and anxiety; Z20.822 Contact with and (suspected) exposure to COVID-19; E03.9 Hypothyroidism, unspecified; Z79.01 Long term (current) use of anticoagulants; Z79.4 Long term (current) use of insulin; Z79.810 Long term (current) use of selective estrogen receptor modulators (SERMs); Z79.899 Other long term (current) drug therapy
CPT/HCPCS: 0241U; 36415; 70450; 70496; 70498; 70551; 71045; 72125; 80048; 80053; 80061; 80076; 80307; 81001; 82140; 82272; 82550; 82803; 82947; 83036; 83605; 83735; 83880; 84443; 84484; 85025; 85027; 87040; 92526; 92610; 93005; 93306; 97112; 97116; 97162; 97167; 97530; 99285; J1650; J7120; Q9967

== ENCOUNTER → 2023-08-11 10:12 | Outpatient (BNV) | payer OTHER, SELFPAY | PROVIDERS: Emergency Provider Emergency Medicine; PCP Family Medicine; Visit Provider Internal Medicine | DX: R41.82 Altered mental status, unspecified (principal) | CPT/HCPCS: 93010 ==

== ENCOUNTER 2023-08-11 17:13 | Outpatient (BNV) | payer OTHER, SELFPAY | END 2023-08-12 10:24 | PROVIDERS: Admitting Provider Physician Assistant Medical; Emergency Provider Emergency Medicine; PCP Family Medicine; Visit Provider Internal Medicine | DX: I63.9 Cerebral infarction, unspecified (principal) | CPT/HCPCS: 93306 ==

== ENCOUNTER → 2023-08-11 17:13 | Outpatient (BNV) | payer OTHER, SELFPAY | PROVIDERS: Admitting Provider Physician Assistant Medical; Emergency Provider Emergency Medicine; PCP Family Medicine; Visit Provider Physician Assistant Medical | DX: I63.411 Cerebral infarction due to embolism of right middle cerebral artery (principal); N17.9 Acute kidney failure, unspecified | CPT/HCPCS: 99223; 99233; 99239; 99499 ==

== ENCOUNTER → 2023-08-11 17:13 | Outpatient (BNV) | payer OTHER, SELFPAY | PROVIDERS: Admitting Provider Physician Assistant Medical; Emergency Provider Emergency Medicine; PCP Family Medicine; Visit Provider Psychiatry & Neurology Neurology | DX: I63.411 Cerebral infarction due to embolism of right middle cerebral artery (principal); I10 Essential (primary) hypertension; I69.354 Hemiplegia and hemiparesis following cerebral infarction affecting left non-dominant side; I69.019 Unspecified symptoms and signs involving cognitive functions following nontraumatic subarachnoid hemorrhage | CPT/HCPCS: 99222 ==

== ENCOUNTER 2023-10-06 13:36 | Outpatient (REF) | payer OTHER, SELFPAY ==
--- NOTE | ~2023-10-06 | MM_ITS ---
EXAMINATION: MM DIAGNOSTIC DIGITAL BREAST TOMOSYNTHESIS, LEFT CLINICAL INFORMATION: Evaluate focal asymmetry upper outer quadrant left breast seen on screening exam 06/14/2023. History of left breast CA treated conservatively 2017. Patient has history of stroke and is nonverbal. COMPARISON: Mammography: 06/14/2023, 06/08/2022, 04/24/2021, 12/11/2019, 11/10/2018, 11/25/2017, 06/20/2017 TECHNIQUE: Digital breast tomosynthesis is performed. 2D images are generated from the tomosynthesis. The following views are obtained: Full-field digital left mediolateral view, full-field 3-D left CC rolled medial, and lateral views, and spot compression left CC and left MLO 3-D views. FINDINGS: There are scattered areas of fibroglandular density (ACR BI-RADS breast composition Category b). Diagnostic views demonstrate reticular changes and distortion in the upper far outer left breast extending to the skin, which have been present previously in 2022 and dating back to 2020 and 2018, most consistent with post radiation and post therapy related changes. No associated mass, suspicious grouped calcifications, or new area of architectural distortion in the left breast. No evidence of disease recurrence. There are vascular calcifications. There are surgical clips in the left axilla. MM/MM tomosynthesis added views L IMPRESSION: Benign findings associated with posterior treatment related changes upper outer left breast. No evidence of recurrent or new malignancy. Recommend the patient resume annual screening mammography. ASSESSMENT: BI-RADS BI-RADS 2 - Benign Findings RECOMMENDATION: 1 year F/U Results were provided to the patient at time of visit by the technologist. This patient's information was entered into a reminder system with a target due date for their next mammogram.
== END 2023-10-06 13:37 | disposition home or self-care (01) ==
LOC: HO.MAMMO 13:36
PROVIDERS: PCP Family Medicine; Visit Provider Family Medicine
DX: N64.89 Other specified disorders of breast (principal)
CPT/HCPCS: 77061; 77065

== ENCOUNTER → 2023-10-06 14:30 | Outpatient (BNV) | payer OTHER, SELFPAY | PROVIDERS: PCP Family Medicine; Visit Provider Radiology Diagnostic Radiology | DX: N63.21 Unspecified lump in the left breast, upper outer quadrant (principal); Z85.3 Personal history of malignant neoplasm of breast | CPT/HCPCS: 77065; G0279 ==

== ENCOUNTER 2023-10-13 08:44 | Outpatient (AMB) | payer OTHER, SELFPAY ==
--- NOTE | 2023-10-13 08:45 | A.OFFVIS_ITS ---
Vital Signs 10/13/23 08:49 Height 5 ft 3 in Weight 187 lb 9.814 oz BMI 33.2 BP 148/62 H Blood Pressure Location Lt brachial Position Sitting Pulse 68 Pulse Source Pulse Oximeter Intake Visit Reasons: DM-confirmed Intake Note: Patient presents today to follow up on D2MT. Last Diabetic Eye exam: 09/2023 Last Podiatry Visit: Doesn't have one Random Glucose: 316 mg/dl HgA1c: 7.9% 08/12/23 Cash Poster Required: Yes Cash Poster Language: Danish Accompanied by: Daughter Allergies JERMAINE Inhibitors [JERMAINE INHIBITORS] Adverse Reaction (Intermediate, Verified 10/13/23 08:52) COUGH lactose [LACTOSE] Adverse Reaction (Intermediate, Verified 10/13/23 08:52) GI DISCOMFORT HPI Comments Details: Patient is 76-year-old female with DM type 2 diagnosed 1995 who presents for management of diabetes. , Past medical history: DM2, bipolar disorder, schizophrenia, hypertension, hyperlipidemia, GERD, allergic rhinitis. Left breast cancer, s/p surgery, endometrial and ovarian cancer s/p total hysterectomy Micro and macrovascular complications: nephropathy, neuropathy, Diabetes medications: Toujeo 80 units units Humalog 30 units Ac Metformin 750mg BID Symptoms reported: denies numbness, tingling, cramping in lower extremities Hypoglycemia: denies Hyperglycemia: denies urinary frequency, + nocturia, + polydypsia Glucometer download shows she is checking her point cares 2-3 times a day. Range is 140 to-high. 5% range with 95% hyperglycemia and no hypoglycemia Beautician Apprentice - CDE education: recently Associate Property Manager: none recently Dental exam: , goes every 6 month Ophthalmology evaluation: . Last appt yesterday Daughter states patient is non compliant with diet and eats excessive amount of sugary foods before breakfast and sometimes i does not eat dinner Laboratory Tests 06/23/21 06/23/21 06/23/21 09:50 09:50 09:50 Creatinine Estimated GFR Hgb A1c (Clinic) Triglycerides Cholesterol LDL Cholesterol Direct 63 LDL Cholesterol, Calc HDL Cholesterol 25-OH Vitamin D Total TSH 3.65 Free T4 1.22 Microalb/Creat Ratio 08/06/21 08/13/21 08/13/21 11:15 09:40 09:49 Creatinine 1.20 Estimated GFR 44 Hgb A1c (Clinic) 8.5 H Triglycerides 116 Cholesterol 117 LDL Cholesterol Direct LDL Cholesterol, Calc 66 HDL Cholesterol 28 25-OH Vitamin D Total 39.2 TSH Free T4 Microalb/Creat Ratio 560.5 Was hospitalized in July 2023 for CVA PFSH Medical History Abdominal bloating Elevated TSH Preoperative clearance Bilateral leg pain Urticaria Obesity (BMI 30-39.9) Diabetic nephropathy associated with type 2 diabetes mellitus Nausea and vomiting Microalbuminuria due to type 2 diabetes mellitus Paroxysmal atrial fibrillation Slurred speech History of endometrial cancer Depression Iron deficiency anemia History of left breast cancer Hypothyroidism Schizophrenia skilled nursing (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 Absence of acromegalic features. Neck exam reveals nl size thyroid about 15 gms. No thyroid nodules palpable. No carotid bruits present. Lungs CTA. Heart S1 S2, Reg R/R. No M/R/ G. Skin exam reveals absence of vitiligo or acanthosis nigricans. Abdominal exam reveals Soft NT/ND with NA BS. no focal tenderness on palpation No organomegaly present. Neck Other: . Extrem Other: Visual exam of foot performed. No ulcerations or open lesions. No onchomycosis, no callouses.Pulses 2 + distally . Sensation and vibration with difficult to test considering patient's dementia Sensation intact to monofilament exam. Vibratory sensation sensed is decreased with 128 Hz tuning fork Quality Reporting (2019) Adult ([facility] 138/07/14/68) Smoking risk assessment performed?: Yes Patient Tobacco Use Status: Never used Tobacco Results Reviewed Results Reviewed: Laboratory Last Values Glucose (Clinic) 316 mg/dL (60-115) H 10/13/23 08:54 Assessment & Plan Assessment & Plan (1) Diabetes type 2, uncontrolled: Code(s): E11.65 - Type 2 diabetes mellitus with hyperglycemia Category: Medical Qualifiers: Glycemic state: with hyperglycemia Qualified Code(s): E11.65 - Type 2 diabetes mellitus with hyperglycemia Plan: This 77-year-old female with a history of type 2 diabetes being treated metformin, and basal-bolus insulin and metformin with fair but adequate for patient's age and comorbidity glycemic control and known microvascular complications namely neuropathy and CKD stage III. The plan is to reinitiate the sensor Carola 2. Not enough information provided today to be able to make changes to the insulin regimen. Patient will follow up with early childhood educator aide. Medications: New insulin glargine U-300 conc (Toujeo Max U-300 SoloStar) 65 units (0.2167 mL) subcut DAILY 12 mL 4RF Refilled insulin lispro (Humalog KwikPen (U-100) Insulin) Hold dinner humalog if sugar less than 200. 35 units (0.35 mL) subcut TID 30 days 31.5 mL 11RF flash glucose sensor (FreeStyle Carola 2 Sensor kit) USE DIRECTED CHANGE EVERY 14 DAYS 2 kits 5RF Coding Level of Care Code Est Pt Level 4 (93265) Diagnoses Uncontrolled type 2 diabetes mellitus with hyperglycemia E11.65 Glycemic state: with hyperglycemia
[2023-10-13 08:49] VITALS: BP 148/62; PULSE 68; BMI 33.2
[2023-10-13 08:58] LABS: Glucose, Whole Blood 316 mg/dL (60-115)
== END 2023-10-13 09:38 | disposition home or self-care (01) ==
PROVIDERS: PCP Family Medicine; Visit Provider Internal Medicine Endocrinology, Diabetes & Metabolism
DX: E11.65 Type 2 diabetes mellitus with hyperglycemia (principal)
CPT/HCPCS: 99214

== ENCOUNTER → 2023-10-13 08:44 | Outpatient (BNVA) | payer OTHER, SELFPAY | PROVIDERS: PCP Family Medicine; Visit Provider Internal Medicine Endocrinology, Diabetes & Metabolism | DX: E11.65 Type 2 diabetes mellitus with hyperglycemia (principal) | CPT/HCPCS: 82947; 99212 ==

== ENCOUNTER 2023-11-08 09:07 | Outpatient (AMB) | payer OTHER, SELFPAY ==
[2023-11-08 09:20] VITALS: BP 128/54; PULSE 66; O2SAT 97; BMI 33.8
--- NOTE | 2023-11-08 09:20 | HO.NEPHOV_ITS ---
Vital Signs 11/08/23 09:20 Height 5 ft 3 in Weight 191 lb BMI 33.8 BP 128/54 L Blood Pressure Location Rt brachial Position Sitting Pulse 66 Pulse Source Pulse Oximeter Pulse Oximetry (%) 97 Oxygen Delivery Method Room Air Intake Visit Reasons: R/S 10/26/2023 Cabinet Mounter Required: Yes Cabinet Mounter Name: Arjun [id number] Accompanied by: Daughter Allergies JERMAINE Inhibitors [JERMAINE INHIBITORS] Adverse Reaction (Intermediate, Verified 11/08/23 09:26) COUGH lactose [LACTOSE] Adverse Reaction (Intermediate, Verified 11/08/23 09:26) GI DISCOMFORT Medication List - Last Reconciled 11/08/23 by Bronson Barclay MD acetaminophen ER 650 mg PO Q8H PRN amlodipine 10 mg PO DAILY apixaban (Eliquis) 5 mg PO BID atorvastatin 80 mg PO BEDTIME bismuth subsalicylate (Pepto-Bismol) 15 mg PO QID PRN blood sugar diagnostic (FreeStyle Precision En Strips) TEST BLOOD SUGAR FOUR TIMES DAILY blood-glucose meter (FreeStyle Precision En Meter) Tests 4 X/day cane As directed cholecalciferol (vitamin D3) (Vitamin D3) 25 mcg PO DAILY compr.stocking,knee,long,large As directed [diabetic shoes with 3 inserts As directed] famotidine 40 mg PO BEDTIME ferrous sulfate 325 mg PO DAILY 90 days flash glucose scanning reader (FreeStyle Carola 2 [place]) As directed flash glucose sensor (FreeStyle Carola 2 Sensor kit) USE DIRECTED CHANGE EVERY 14 DAYS hydroxyzine HCl 25 mg PO BID PRN 30 days insulin glargine U-300 conc (Toujeo Max U-300 SoloStar) 65 units (0.2167 mL) subcut DAILY insulin lispro (Humalog KwikPen (U-100) Insulin) 35 units (0.35 mL) subcut TID 30 days lancets As directed lancets (TRUEplus Lancets) TEST BLOOD SUGAR FOUR TIMES DAILY linaclotide (Linzess) 72 mcg PO QAM magnesium oxide 250 mg PO BID metoclopramide HCl 5 mg PO TID metoprolol succinate ER 100 mg PO QAM omeprazole 40 mg PO DAILY ondansetron 4 mg PO Q8H PRN 7 days pen needle, diabetic As directed pen needle, diabetic (UltiCare Pen Needle) USE THREE TIMES DAILY sennosides (Whit-chitra) 17.2 mg (2 x 8.6 mg) PO BID 30 days simethicone 180 mg PO TID tamoxifen 20 mg PO BEDTIME valsartan 320 mg PO DAILY HPI Comments Details: 77-year-old woman with a history of obesity and diabetes mellitus with its chronic kidney disease has been referred for evaluation of CKD. She has had high attention and diabetes medicines 1996. Upon reviewing the labs it appears that the blood sugars have been suboptimally controlled with a hemoglobin A1c of around 10%. She was also found to have significant proteinuria. She is on a maximum dose of valsartan of 320 mg. Baseline serum creatinine is between 1.11.2 mg/dL. In April the serum creatinine was 1.35 and 1.49 mg/dL. And hence this referral 11/08/23: Overall doing OK. Accompanied by daughter c/o abdominla distention - always and she keeps spitting frequently. No vomiting Cabinet Mounter service was used [facility] Medical History Abdominal bloating Elevated TSH Preoperative clearance Bilateral leg pain Urticaria Obesity (BMI 30-39.9) Diabetic nephropathy associated with type 2 diabetes mellitus Nausea and vomiting Microalbuminuria due to type 2 diabetes mellitus Paroxysmal atrial fibrillation Slurred speech History of endometrial cancer Depression Iron deficiency anemia History of left breast cancer Hypothyroidism Schizophrenia senior care (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 Patient Tobacco Use Status: Never used Tobacco e-Cigarette/Vaping Use: Never Used Second Hand Smoke Exposure: No service: No Current occupational status: disabled Cognitive needs: Yes Hearing needs: No Vision needs: Yes Physical Exam Vital Signs: Last Vital Signs Pulse 66 11/08/23 09:20 BP 128/54 L 11/08/23 09:20 Pulse Ox 97 11/08/23 09:20 Oxygen Delivery Method Room Air 11/08/23 09:20 BMI result Body Mass Index 33.8 Const General: comfortable; No acute distress Orientation/consciousness: patient oriented x3 Eyes General: appearance normal, both eyes and all related structures Visual Marrufo: normal visual marrufo by confrontation Neck Neck: Yes supple and Yes no JVD Resp Effort & Inspection: normal respiratory effort and respiratory effort not decreased Auscultation: rhonchi Cardio Palpation: no palpable S3 and no palpable S4 Heart sounds: no rubs GI Inspection: Yes normal to inspection Palpation (GI): Soft to palpation Percussion: Yes normal to percussion Auscultation: normal bowel sounds General: Yes no CVA tenderness Back/Spine/Pelvis Back: no CVA tenderness Skin General skin exam: no petechiae and no purpura Neuro General: patient oriented x3 and no focal motor deficits Extrem General: No clubbing and No edema Results Reviewed Nephrology Results: Hgb 11.0 g/dl (12.0-16.0) L 08/13/23 WBC 8.7 X10*3/uL (4.8-10.8) 08/13/23 Plt Count 227 X10*3/uL (160-400) 08/13/23 Sodium 139 mmol/L (135-145) 08/15/23 Potassium 4.6 mmol/L (3.3-5.1) 08/15/23 Chloride 105 mmol/L (96-108) 08/15/23 Carbon Dioxide 25 mmol/L (22-29) 08/15/23 BUN 26 mg/dL (9-16) H 08/15/23 Creatinine 1.69 mg/dL (0.5-1.4) H 08/15/23 Calcium 9.2 mg/dL (8.4-10.2) 08/15/23 Urine Protein 300 (3+) mg/dL (Neg-Trace) H 08/11/23 Assessment & Plan Assessment & Plan (1) Hypertension: Code(s): I10 - Essential (primary) hypertension Category: Medical Qualifiers: Hypertension type: essential hypertension Qualified Code(s): I10 - Essential (primary) hypertension Plan: Goal is to maintain blood pressure less than 130/80. Discussed weight loss. She should stay on low-sodium diet. Continue with current antihypertensive regimen. (2) CKD (chronic kidney disease) stage 3, GFR 30-59 ml/min: Code(s): N18.30 - Chronic kidney disease, stage 3 unspecified Category: Medical Plan: CKD 3 with about 1 g of proteinuria in setting of longstanding diabetes mellitus. She probably has underlying diabetic nephropathy. There could be a component of CASS. Differential diagnosis would include hypoperfusion. She had a CT scan back in October which did not reveal any significant obstruction. 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 Discussed importance of tight control of blood sugar and maintain hemoglobin A1c less than 7%. Agree with maximizing ARB. She will benefit from the addition of SGLT 2 inhibitor. Renal ultrasonogram ordered Orders: Orders Complete Blood Count no Diff Today N18.30 - Chronic kidney disease, stage 3 unspecified US renal BI Today N18.30 - Chronic kidney disease, stage 3 unspecified Basic Metabolic Panel Today N18.30 - Chronic kidney disease, stage 3 unspecified Parathyroid Hormone Intact Today N18.30 - Chronic kidney disease, stage 3 unspecified Coding Level of Care Code Est Pt Level 4 (54924) Diagnoses Essential hypertension I10 Hypertension type: essential hypertension CKD (chronic kidney disease) stage 3, GFR 30-59 ml/min N18.30
== END 2023-11-08 09:43 | disposition home or self-care (01) ==
PROVIDERS: PCP Family Medicine; Visit Provider Internal Medicine Hypertension Specialist
DX: I10 Essential (primary) hypertension (principal); N18.30 Chronic kidney disease, stage 3 unspecified
CPT/HCPCS: 99214

== ENCOUNTER → 2023-11-08 09:07 | Outpatient (BNVA) | payer OTHER, SELFPAY | PROVIDERS: PCP Family Medicine; Visit Provider Internal Medicine Hypertension Specialist | DX: I12.9 Hypertensive chronic kidney disease with stage 1 through stage 4 chronic kidney disease, or unspecified chronic kidney disease (principal); E11.22 Type 2 diabetes mellitus with diabetic chronic kidney disease; N18.30 Chronic kidney disease, stage 3 unspecified | CPT/HCPCS: 99212 ==

== ENCOUNTER 2023-11-09 10:00 | Outpatient (AMB) | payer OTHER, SELFPAY ==
--- NOTE | 2023-11-09 10:31 | A.OFFVIS_ITS ---
Intake Intake Visit Reasons: DM/LVM Alligator Trapper Required: Yes Alligator Trapper Language: Big Data Hadoop Developer Name: Gomez [facility] [place] Information Interpreted: non-clinical & clinical Accompanied by: Daughter Allergies JERMAINE Inhibitors [JERMAINE INHIBITORS] Adverse Reaction (Intermediate, Verified 11/08/23 09:26) COUGH lactose [LACTOSE] Adverse Reaction (Intermediate, Verified 11/08/23 09:26) GI DISCOMFORT HPI Comprehensive Diabetes Asmnt Most Recent Diabetes Results: Microalb/Creat Ratio 1591.0 ug/mg cr (<30) H 05/27/23 Cholesterol 163 mg/dL (<200) 08/12/23 HDL Cholesterol 25 mg/dL (>40) L 08/12/23 Triglycerides 375 mg/dL (<150) H 08/12/23 Creatinine 1.69 mg/dL (0.5-1.4) H 08/15/23 Blood Urea Nitrogen 26 mg/dL (9-16) H 08/15/23 Sodium 139 mmol/L (135-145) 08/15/23 Potassium 4.6 mmol/L (3.3-5.1) 08/15/23 Chloride 105 mmol/L (96-108) 08/15/23 Carbon Dioxide 25 mmol/L (22-29) 08/15/23 Calcium 9.2 mg/dL (8.4-10.2) 08/15/23 AST 24 U/L (5-31) 08/12/23 ALT 25 U/L (0-31) 08/12/23 Total Protein 6.8 g/dL (6.5-8.0) 08/12/23 Albumin 3.3 g/dL (3.5-5.0) L 08/12/23 [facility] Medical History Abdominal bloating Elevated TSH Preoperative clearance Bilateral leg pain Urticaria Obesity (BMI 30-39.9) Diabetic nephropathy associated with type 2 diabetes mellitus Nausea and vomiting Microalbuminuria due to type 2 diabetes mellitus Paroxysmal atrial fibrillation Slurred speech History of endometrial cancer Depression Iron deficiency anemia History of left breast cancer Hypothyroidism Schizophrenia shelter (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 Patient Tobacco Use Status: Never used Tobacco e-Cigarette/Vaping Use: Never Used Second Hand Smoke Exposure: No service: No Current occupational status: disabled Cognitive needs: Yes Hearing needs: No Vision needs: Yes Assessment & Plan Assessment & Plan (1) Diabetes type 2, uncontrolled: Code(s): E11.65 - Type 2 diabetes mellitus with hyperglycemia Qualifiers: Glycemic state: with hyperglycemia Qualified Code(s): E11.65 - Type 2 diabetes mellitus with hyperglycemia Plan: Learning objectives: The patient was provided with verbal and written education on the following topics as outlined below. The patient met all learning objectives and was able to verbalize understanding and provide teach back of education topics discussed . The patient was provided with the opportunity to ask questions and all questions were answered. Patient Assessment Assess patient education level/literacy/barriers, patient has recently had CVA, patient also has diagnosis of dementia relies on her daughter's as her caretakers. Patient questions/concerns patient's last A1c 08/12/2023 7.9%, patient does have stage 3 kidney disease. Patient has read recently reinitiated Carola 2. Blood glucose monitoring When/how often to test Target blood sugar ranges Patient uses freestyle Carola 2 Average glucose for the past 7 days 254 mg/dL Patient above target 82% At target 18% Below target 0% Introduction to Nutrition Importance of healthy diet in managing DM Diet is personalized to individual preference Review patient?s regular diet/food preferences Who prepares meals/does food shopping/ Dining out?/ Barriers? How diet effects glucose Eating 3 balanced meals a day with small, healthy snacks between meals Review food groups Carbohydrates: What is a carbohydrate/Which food/food groups are considered carbohydrates Effect of carbohydrates on blood glucose Portion sizes Reading food labels Basic carb counting (if applicable per nursing assessment) Plate method Meal planning Recommendations: Follow plate method, consistent carbs and read nutritional labels. Smart Goal: Patient's daughters will scan sensor every 4-6 hours while patient is awake Educational Materials: The patient was provided with the following written educational materials: Planning Healthy Meals, Common Indonesian foods Handouts Patient Response to instructions: Comprehension of Instructions: Poor Readiness to make changes: Contemplation How confident they feel about making changes: Poor Portions of this note were created using voice recognition software, please excuse any words or phrases that may have been misinterpreted. Patient Instructions: Patient will follow-up with inclusion special educator in 1 month Coding Level of Care Code Est Pt Level 1 (72582) Diagnoses Uncontrolled type 2 diabetes mellitus with hyperglycemia E11.65 Glycemic state: with hyperglycemia
== END 2023-11-09 10:33 | disposition home or self-care (01) ==
PROVIDERS: PCP Family Medicine; Visit Provider Registered Nurse Diabetes Educator
DX: E11.65 Type 2 diabetes mellitus with hyperglycemia (principal)

== ENCOUNTER → 2023-11-09 10:00 | Outpatient (BNVA) | payer OTHER, SELFPAY | PROVIDERS: PCP Family Medicine; Visit Provider Registered Nurse Diabetes Educator | DX: E11.65 Type 2 diabetes mellitus with hyperglycemia (principal) | CPT/HCPCS: 99211 ==

== ENCOUNTER 2023-11-12 12:37 | Inpatient (IN) | payer OTHER, SELFPAY ==
--- NOTE | ~2023-11-12 | CT_ITS ---
EXAMINATION: CT ABDOMEN AND PELVIS WITHOUT CONTRAST CLINICAL INFORMATION: Acute mental status change. Abdominal distention. COMPARISON: Previous CT of the abdomen and pelvis October 2022 TECHNIQUE: Multidetector volumetric imaging was performed from the superior aspect of the liver through the pubic symphysis. Sagittal and coronal reformatted images were obtained on the technologist's workstation. This CT examination was performed using dose optimization techniques as appropriate, variously including the following: *Automated exposure control *Adjustment of mA and/or kV according to patient size (this includes techniques or standardized protocols for targeted exams where dose is matched to indication/reason for exam; i.e. extremities or head) *Use of iterative reconstruction technique DLP: 937 mGy-cm FINDINGS: Limited due to motion artifact. LUNG BASES: The visualized lung bases are unremarkable. LIVER, GALLBLADDER, AND BILIARY TREE: The liver is normal in size, shape, and attenuation. No focal hepatic lesion or biliary ductal dilatation is present. The gallbladder is unremarkable with no evidence of radiopaque gallstones, gallbladder wall thickening, or obvious pericholecystic inflammatory changes. PANCREAS: Unremarkable. SPLEEN: Unremarkable. ADRENAL GLANDS: Unremarkable. KIDNEYS AND URETERS: Limited evaluation due to motion artifact. The kidneys are normal in size, shape, and attenuation. Mild fullness of both renal collecting systems and ureters. This may be due to bladder distention. BLADDER: Well-distended bladder. Small amount of air in the bladder. GASTROINTESTINAL TRACT: The small and large bowel are unremarkable. The appendix is unremarkable. ABDOMINAL WALL: Small umbilical hernia containing fat. LYMPH NODES: Normal. VASCULAR: Unremarkable. PELVIC VISCERA: Post hysterectomy. The vagina contains fluid and small amount of air. No pelvic mass. OSSEOUS STRUCTURES: Degenerative changes of the spine. CT/CT abdomen pelvis wo IV con IMPRESSION: Distended bladder with small amount of air. Post hysterectomy. Distended vagina containing fluid and small amount of air. Clinically correlate for recent bladder catheterization. Infection and possible vesicovaginal fistula should also be considered. Fullness of both renal collecting systems and ureters, question secondary to bladder distention. Fleischner guidelines were followed.
--- NOTE | ~2023-11-12 | CT_ITS ---
EXAM: CT HEAD WITHOUT CONTRAST CT CERVICAL SPINE INDICATION: Reason for Exam ams TECHNIQUE: A noncontrast CT scan was performed from the skull base to the vertex. A noncontrast CT scan of the cervical spine was performed from the base of the skull through T1 at 2.5 mm and 0.625 mm collimation. Coronal and sagittal reformats were obtained at the acquisition workstation. This CT examination was performed using dose optimization techniques as appropriate, variously including the following: * Automated exposure control * Adjustment of mA and/or kV according to patient size (this includes techniques or standardized protocols for targeted exams where dose is matched to indication/reason for exam; i.e. extremities or head) * Use of iterative reconstruction technique Dose length product is 3 mGy-cm. COMPARISON: CT head and cervical spine 08/11/2023 FINDINGS: Head: Adams to white matter differentiation is maintained without evidence of an acute territorial infarct. There is no intracranial hemorrhage, subarachnoid bleeding or extra-axial collection. There are scattered hypodensities throughout the periventricular and deep white matter likely related with chronic small vessel ischemic disease. There is proportional prominence of the ventricles with the cerebral sulci spaces in keeping with generalized cerebral volume loss. There is no hydrocephalus, herniation, midline shift, or other herniation pattern. Bilateral ocular lens extraction. There are no acute osseous findings. The paranasal sinuses and mastoid air cells are clear. Cervical Spine: The atlantooccipital and atlantoaxial articulations remain well aligned. Straightening of the normal cervical lordosis. Otherwise, there is anatomic alignment of the vertebral bodies and posterior elements. No evidence of acute fracture. Multilevel mild-moderate cervical spondylosis.. The central canal is grossly maintained. No prevertebral soft tissue swelling. No suspicious thyroid findings.. The visualized lung apices are clear. CT/CT cervical spine wo IV con IMPRESSION: 1. No CT evidence of acute intracranial hemorrhage or edematous large vessel territorial infarction. 2. No CT evidence of acute cervical spine fracture. 3. Multilevel moderate cervical spondylosis..
--- NOTE | ~2023-11-12 | XR_ITS ---
EXAMINATION: XR CHEST CLINICAL INFORMATION: Acute mental status change COMPARISON: Previous chest x-ray most recent July 2023 TECHNIQUE: Frontal view of the chest was obtained. FINDINGS: The cardiac and mediastinal contours are stable. The lungs are clear. The lung volumes are low. No pleural effusion or pneumothorax. Degenerative changes of the spine. XR/XR chest 1V IMPRESSION: No evidence for acute disease in the chest.
--- NOTE | ~2023-11-12 | CT_ITS ---
EXAMINATION: CT angio head neck stroke CLINICAL INFORMATION: Additional Information: OMNI 350, 70cc's, 1454 mGycm2; Notified Maryan @ 1900 Scan @ 1856, taken @ 1918, ready to read @ 1920 : COMPARISON: CT head 11/12/2023, CTA head/neck 08/11/2023 TECHNIQUE: Test bolus sequences followed by intravenous administration 70 mL of Omnipaque 350. Helical imaging was performed in the axial plane from the mediastinum to the skull vertex. Delayed postcontrast imaging of the head was also performed. The data was processed at the orthopaedic technologist's workstation for generation of MIP sequences. Three-dimensional volume rendered reformatted images were also generated at an offline 3-D workstation. Arterial stenoses are measured in accordance with NASCET criteria or similar method if applicable. This CT examination was performed using dose optimization techniques as appropriate, variously including the following: * Automated exposure control * Adjustment of mA and/or kV according to patient size (this includes techniques or standardized protocols for targeted exams where dose is matched to indication/reason for exam; i.e. extremities or head) Use of iterative reconstruction technique DLP: 1454 mGy-cm. FINDINGS: CT head: There is no evidence of acute intracranial hemorrhage or territorial infarction. There is no loss of bolanos to white matter differentiation. No abnormal mass effect or midline shift is seen. No extra-axial fluid collections are identified. There is no abnormal enhancement. No hydrocephalus. Proportional prominence of the ventricles and sulcal spaces is consistent with mild volume loss. Patchy periventricular and deep white matter hypoattenuation is consistent with moderate small vessel ischemic changes. The cerebellar tonsils are well positioned. No acute osseous or soft tissue abnormality. The mastoid air cells and visualized portions of the paranasal sinuses are well aerated. CTA neck: The imaged aortic arch is normal. The origins of the great vessels are normal. The common carotid arteries are widely patent. The carotid bifurcations are normal. The cervical internal carotid arteries are normal. The proximal right vertebral artery is partially obscured by streak artifact from contrast bolus refluxing up the right paraspinal venous plexus. The visualized right vertebral artery and entire left vertebral artery opacify normally and are of normal caliber. Nonvascular: There is a 0.7 cm left thyroid hypodense nodule. Incidental note is made of numerous right renal left parotid lymph nodes. Prominent mediastinal nodes are partially visualized. Bilateral atelectasis in the visualized lung apices. Moderate multilevel cervical spondylosis. CTA head: Cavernous ICAs: Moderate atherosclerotic calcifications without significant stenosis on either side. A1 segments, anterior communicating artery, and A2 segments: Patent without significant stenosis. M1 segments and major MCA branches: Bilateral M1 segments are patent without significant stenosis. P1, P2 and proximal P3 segments of the hardwood sawyer: Patent without significant stenosis. Intracranial vertebral arteries, cerebellar arteries and basilar artery: Patent without significant stenosis. CT/CT angio head neck stroke IMPRESSION: HEAD CT: 1. No acute intracranial hemorrhage or edematous territorial infarction. 2. Chronic microangiopathy with global cerebral volume loss. CTA HEAD/NECK: 1. No high-grade stenosis or proximal occlusion of the vasculature of the head and neck. 2. Subcentimeter left thyroid nodule. No follow-up recommended unless deemed clinically necessary. These results were discussed with SANTY Dougherty by telephone on 11/12/2023 at 7:49 PM and it was ascertained that the content of the report was understood at the time of direct communication.
--- NOTE | ~2023-11-12 | MR_ITS ---
EXAMINATION: MR BRAIN WITHOUT CONTRAST CLINICAL INFORMATION: Slurred speech. Encephalopathy. COMPARISON: MR brain 08/12/2023. CT angiogram head and neck 11/12/2023. TECHNIQUE: MRI of the brain was obtained using routine sequences without contrast. FINDINGS: There is an evolving lacunar infarct within the rostral right thalamus near or involving the genu of the right internal capsule that now demonstrates chronic characteristics. Numerous foci of T2 FLAIR signal hyperintensity are visualized within the periventricular white matter, basal ganglia, and jorge that most likely represent a chronic manifestation of small vessel ischemia. No acute territorial infarct. No pathological magnetic susceptibility artifact. Intracranial vascular flow voids are grossly maintained. There is no intracranial mass effect or midline shift. No abnormal extra-axial collection. Lateral and third ventricles are normal. No hydrocephalus. Midline structures including the cervicomedullary junction are normal. No acute bone marrow some changes. There is no mastoid middle ear effusion. Mild paranasal sinus disease primarily affecting the ethmoid air cells and the alveolar recesses of the maxillary sinuses. Globes and orbits are symmetric. 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 MR/MR head/brain wo con IMPRESSION: There is an chronic lacunar infarct within the rostral right thalamus and numerous chronic small vessel ischemic changes within the periventricular white matter, basal ganglia, and jorge. No evidence of acute territorial infarct or hemorrhage. 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
[2023-11-12 12:51] VITALS: BP 159/58; BP 160/70; PULSE 62; PULSE 64; RESP 14; TEMP 36.6; O2SAT 97; O2SAT 98; BMI 35.9
--- NOTE | 2023-11-12 13:39 | ECG_ITS ---
Test Reason : AMS Blood Pressure : / mmHG Vent. Rate : 064 BPM Atrial Rate : 064 BPM P-R Int : 184 ms QRS Dur : 082 ms QT Int : 426 ms P-R-T Axes : 038 007 036 degrees QTc Int : 439 ms Normal sinus rhythm Septal infarct , age undetermined Abnormal ECG When compared with ECG of 11-AUG-2023 10:35, No significant change was found Referred By: Arlet Jordan Electronically Signed By:Alonso Goins
[2023-11-12 14:03] LABS: MANUAL DIFF FLAG NO
[2023-11-12 14:04] LABS: Basophils Percent Auto 0.4 % (0-2); Eosinophils Absolute Auto 0.2 X10*3/uL (0.0-0.4); Eosinophils Percent Auto 2.2 % (0-4); Hematocrit 30.8 % (37.0-47.0); Hemoglobin 10.7 g/dl (12.0-16.0); Imm Gran Abs Auto 0.04 X10*3/uL (0.00-0.03); Imm Gran Pct Auto 0.4 % (0.0-0.4); Lymphocytes Absolute Auto 2.9 X10*3/uL (1.2-4.9); Lymphocytes Percent Auto 29.9 % (20-40); Mean Corpuscular HGB Conc 34.7 g/dl (31.0-35.0); Mean Corpuscular Hemoglobin 28.3 pg (27.0-33.0); Mean Corpuscular Volume 81.5 fL (80.0-98.0); Mean Platelet Volume 10.3 fL (9.4-12.3); Monocytes Absolute Auto 0.8 X10*3/uL (0.1-1.2); Monocytes Percent Auto 8.2 % (2-11); Neutrophils Absolute Auto 5.6 x10*3/uL (2.0-8.3); Neutrophils Percent Auto 58.9 % (45-73); Platelet Count 242 X10*3/uL (160-400); Red Blood Count 3.78 X10*6/uL (4.20-5.50); White Blood Count 9.5 X10*3/uL (4.8-10.8)
[2023-11-12 14:09] LABS: INTERNATIONAL NORM RATIO 1.1 (0.9-1.1)
[2023-11-12 14:27] LABS: B Type Natriuretic Peptide 63 pg/mL (<100)
[2023-11-12 14:41] LABS: Alanine Aminotransferase 15 U/L (0-31); Albumin Level 3.4 g/dL (3.5-5.0); Alkaline Phosphatase 71 U/L (39-117); Anion Gap 13 (12-20); Aspartate Amino Transferase 25 U/L (5-31); Bilirubin Direct < 0.2 mg/dL (0.0-0.5); Bilirubin Total 0.2 mg/dL (0.0-1.0); Blood Urea Nitrogen 28 mg/dL (9-16); Calcium 9.3 mg/dL (8.4-10.2); Carbon Dioxide 17 mmol/L (22-29); Chloride 111 mmol/L (96-108); Creatinine Clr Calc Pharmacy 45.6; Estimated Glomerular Filt Rate 50; Glucose Random 154 mg/dL (60-115); Magnesium 2.1 mg/dL (1.6-2.6); Potassium 4.7 mmol/L (3.3-5.1); Sodium 136 mmol/L (135-145); Total Protein 7.2 g/dL (6.5-8.0)
[2023-11-12 14:41] LABS: Acetaminophen LAB < 3 mcg/mL (<30); Ammonia 34 umol/L (13-55); Salicylate < 5.0 mg/dL (15-30)
[2023-11-12 14:43] LABS: Troponin-I High Sensitivity 3.4 ng/L (<3.5-17.0)
[2023-11-12 14:44] LABS: Influenza A PCR NEGATIVE (Negative); Influenza B PCR NEGATIVE (Negative); Resp Syncy Virus RNA Qual PCR NEGATIVE (Negative); SARS COV2 PCR INHOUSE NEGATIVE (Negative)
--- NOTE | 2023-11-12 14:44 | ED_ITS ---
HPI - General Adult General Chief complaint: Recheck/Abnormal Lab/Rx Stated complaint: HYPERGLYCEMIA PER EMS Time Seen by Provider: 11/12/23 13:10 Source: patient, family, RN notes reviewed and old records reviewed Mode of arrival: EMS History of Present Illness ED Provider: Arlet Jordan PA-C HPI narrative: 77-year-old female with a past medical history of proximal AFib on Eliquis, diabetes, gastroparesis, GERD, anemia, hypothyroid, CKD, CVA, Alzheimer's, schizophrenia, presenting to the ED via EMS for elevated glucose at home >400 per daughters. Also reports altered mental status noted today. At baseline patient is confused however conversational and ambulatory, noted today she had increased weakness History obtained from family, poor historians. Related Data Home Medications ?Medication ?Instructions ?Recorded ?Confirmed lancets 33 gauge #100 ea 04/09/20 11/08/23 pen needle, diabetic 32 gauge x #50 ea 04/09/20 11/08/23 tamoxifen 20 mg tablet 20 mg PO BEDTIME 08/11/23 11/12/23 amlodipine 10 mg tablet 10 mg PO QAM 11/12/23 11/12/23 memantine 5 mg tablet 5 mg PO BID 11/12/23 11/12/23 Previous Rx's ?Medication ?Instructions ?Recorded compr.stocking,knee,long,large #12 ea 10/16/20 diabetic shoes with 3 inserts #3 ea 12/31/20 blood-glucose meter (FreeStyle #1 ea 12/11/21 Precision En Meter) lancets 33 gauge (TRUEplus Lancets) ##100 11/22/22 flash glucose scanning reader #1 ea 12/06/22 (FreeStyle Carola 2 [place]) cane #1 ea 12/15/22 pen needle, diabetic 32 gauge x #200 ea 03/01/23 (UltiCare Pen Needle) cholecalciferol (vitamin D3) 25 25 mcg PO DAILY #30 caps 03/25/23 mcg (1,000 unit) capsule (Vitamin D3) magnesium oxide 250 mg PO BID #180 tabs 04/03/23 valsartan 320 mg tablet 320 mg PO DAILY #90 tabs 04/03/23 famotidine 40 mg tablet 40 mg PO BEDTIME #30 tabs 06/23/23 metoclopramide HCl 5 mg tablet 5 mg PO TID #90 tabs 06/23/23 ferrous sulfate 325 mg (65 mg 325 mg PO DAILY 90 days #90 tabs 07/04/23 iron) tablet linaclotide 72 mcg capsule 72 mcg PO QAM #30 caps 07/14/23 (Linzess) simethicone 180 mg capsule 180 mg PO TID #90 caps 07/14/23 metoprolol succinate 100 mg 100 mg PO QAM #90 tabs 09/02/23 tablet,extended release 24 hr atorvastatin 80 mg tablet 80 mg PO BEDTIME #30 tabs 09/25/23 apixaban 5 mg tablet (Eliquis) 5 mg PO BID #180 tabs 10/10/23 flash glucose sensor (FreeStyle #2 kits 10/13/23 Carola 2 Sensor kit) insulin glargine U-300 conc 300 65 unit (0.2167 mL) subcut DAILY 10/13/23 unit/mL (3 mL) subcutaneous pen #12 mL (Toujeo Max U-300 SoloStar) insulin lispro 100 unit/mL 35 unit (0.35 mL) subcut TID 30 10/13/23 subcutaneous pen (Humalog KwikPen days #31.5 mL (U-100) Insulin) blood sugar diagnostic (FreeStyle #100 strips 10/18/23 Precision En Strips) Allergies Allergy/AdvReac Type Severity Reaction Status Date / Time JERMAINE Inhibitors AdvReac Intermediate COUGH Verified 11/08/23 09:26 [JERMAINE INHIBITORS] lactose [LACTOSE] AdvReac Intermediate GI Verified 11/12/23 12:55 DISCOMFORT Review of Systems 2 Review of Systems: ROS limited due to patients acute mental status Yes all other systems are reviewed and are negative Constitutional: Constitutional: Reports as per [facility] Past Medical History Attestation statement: The following information was validated with the patient. 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 Tobacco Use Status: Never used Tobacco e-Cigarette/Vaping Use: Never Used Second Hand Smoke Exposure: No Advance Directives: No Advance Directives Information Provided: No Do you have a plan to hurt others: No Plan service: No Current occupational status: disabled Cognitive needs: Yes Hearing needs: No Vision needs: Yes Physical Exam ED Vital Signs: Vital Signs - 24 hr 11/12/23 12:51 11/12/23 17:55 Temperature 97.9 F 98.0 F Pulse Rate 62 52 Respiratory Rate 14 16 Blood Pressure 159/58 H 144/57 H Pulse Oximetry 97 95 Oxygen Delivery Method Room Air Room Air BMI result Body Mass Index 35.9 Const Other: lethargic, sleeping, arousable to sternal rub Limitations: altered mental status HENMT Head: Yes normal to inspection and Yes atraumatic Ears: hearing grossly normal bilaterally General nose exam: Normal external nose present Face and sinus: Yes normal facial exam Eyes General: appearance normal, both eyes and all related structures Pupils: Equal, round and reactive pupils present EOM: EOMs intact bilaterally Neck Neck: Yes normal visual inspection Resp Effort & Inspection: normal respiratory effort and no respiratory distress Auscultation: clear to auscultation bilaterally Cardio Rate: regular rate Heart sounds: S1 normal heart sound present and S2 normal heart sound present GI Other: Distended Palpation (GI): Soft to palpation, nontender, no guarding and not rigid Skin Rashes: no rashes Wounds: no wounds Neuro Cranial nerves: Yes Equal, round and reactive pupils present Extrem General: Yes normal to inspection Course Course Course Narrative: 1552--no leukocytosis. Chronic anemia. Chronically elevated BUN. Ammonia WNL -viral studies negative -CXR unremarkable CT head/brain wo IV con/CT cervical spine wo IV con IMPRESSION: 1. No CT evidence of acute intracranial hemorrhage or edematous large vessel territorial infarction. 2. No CT evidence of acute cervical spine fracture. 3. Multilevel moderate cervical spondylosis.. CT abdomen pelvis wo IV con IMPRESSION: Distended bladder with small amount of air. Post hysterectomy. Distended vagina containing fluid and small amount of air. Clinically correlate for recent bladder catheterization. Infection and possible vesicovaginal fistula should also be considered. Fullness of both renal collecting systems and ureters, question secondary to bladder distention. Fleischner guidelines were followed. > patient was straight cathed in the ED, unclear if this was prior or after CT. Will consult General surgery, Dr. Aquino > recommended hospital admission, no surgical intervention needed Plan to admit for further management of altered mental status, case d/w Dr. Marie who accepted admission Medications Administered Discontinued Medications Generic Name Dose Route Start Last Admin Trade Name Freq PRN Reason Stop Dose Admin Iohexol 70 ml 11/12/23 19:17 11/12/23 19:18 Iohexol 350 Mg/Ml 100 Ml Infus..Btl IV 11/12/23 19:18 70 ml ONCE ONE Administration Medical Decision Making Medical Decision Making MDM Narrative: 77-year-old female with a past medical history of proximal AFib on Eliquis, diabetes, gastroparesis, GERD, anemia, hypothyroid, CKD, CVA, Alzheimer's, schizophrenia, presenting to the ED via EMS for elevated glucose at home >400 per daughters. Also reports altered mental status noted today w/ increased weakness. On exam VSS, lethargic, arousable to sternal rub, no evidence of trauma. Abdomen distended, nontender. Concern for ICH vs encephalopathy vs infections or metabolic etiologies. Plan: EKG, labs, UA, CXR, CT's, viral testing, re-evaluate, anticipate admission Please refer to course for remaining clinical decision making, interpretation of labs/imaging results, and discussions with consultants and/or family members. Differential Diagnosis Differential Diagnoses: The differential diagnosis associated with the presentation includes As above Admission/Observation Consideration of admission/observation: Escalation of care including admission/observation considered Lab Data [facility] Lab Attestation statement: I reviewed the patient's lab results. 11/12/23 13:53 11/12/23 13:53 Labs: Lab Results 11/12/23 11/12/23 11/12/23 Range/Units 13:53 13:56 15:09 WBC 9.5 (4.8-10.8) X10*3/uL RBC 3.78 L (4.20-5.50) X10*6/uL Hgb 10.7 L (12.0-16.0) g/dl Hct 30.8 L (37.0-47.0) % MCV 81.5 (80.0-98.0) fL MCH 28.3 (27.0-33.0) pg MCHC 34.7 (31.0-35.0) g/dl RDW 13.0 (11.0-16.0) % Plt Count 242 (160-400) X10*3/uL MPV 10.3 (9.4-12.3) fL Immature Gran % (Auto) 0.4 (0.0-0.4) % Neut % (Auto) 58.9 (45-73) % Lymph % (Auto) 29.9 (20-40) % Crawford % (Auto) 8.2 (2-11) % Eos % (Auto) 2.2 (0-4) % Baso % (Auto) 0.4 (0-2) % Lymph # (Auto) 2.9 (1.2-4.9) X10*3/uL [place] # (Auto) 0.8 (0.1-1.2) X10*3/uL Eos # (Auto) 0.2 (0.0-0.4) X10*3/uL Baso # (Auto) 0.0 (0.0-0.2) X10*3/uL Abs Immat Gran (auto) 0.04 H (0.00-0.03) X10*3/uL Absolute Neuts (auto) 5.6 (2.0-8.3) x10*3/uL Absolute Nucleated RBC 0.000 (0.0-0.012) X10*3/uL Nucleated RBC % (auto) 0.0 (0.0-0.2) /100WBC PT 13.0 (11.1-13.3) SEC INR 1.1 (0.9-1.1) VBG pH (7.32-7.43) VBG pCO2 mmHg VBG pO2 mmHg VBG HCO3 (22-26) mmol/L VBG O2 Saturation % VBG Base Excess mmol/L Sodium 136 (135-145) mmol/L Potassium 4.7 (3.3-5.1) mmol/L Chloride 111 H (96-108) mmol/L Carbon Dioxide 17 L (22-29) mmol/L Anion Gap 13 (12-20) BUN 28 H (9-16) mg/dL Creatinine 1.07 (0.5-1.4) mg/dL Estim Creat Clear Calc 45.6 Estimated GFR 50 POC Glucose 93 (60-115) mg/dL Random Glucose 154 H (60-115) mg/dL Calcium 9.3 (8.4-10.2) mg/dL Magnesium 2.1 (1.6-2.6) mg/dL Total Bilirubin 0.2 (0.0-1.0) mg/dL Direct Bilirubin < 0.2 (0.0-0.5) mg/dL AST 25 (5-31) U/L ALT 15 (0-31) U/L Alkaline Phosphatase 71 (39-117) U/L Ammonia 34 (13-55) umol/L Troponin I High Sens 3.4 (<3.5-17.0) ng/L B-Natriuretic Peptide 63 (<100) pg/mL Total Protein 7.2 (6.5-8.0) g/dL Albumin 3.4 L (3.5-5.0) g/dL Triglycerides 291 H (<150) mg/dL Cholesterol 125 (<200) mg/dL LDL Cholesterol, Calc 40 (<100) mg/dL HDL Cholesterol 27 L (>40) mg/dL Urine Color Urine Appearance Urine pH (5.0-9.0) Ur Specific [place] (1.005-1.025) Urine Protein (Neg-Trace) mg/dL Urine Glucose (UA) (Negative) mg/dL Urine Ketones (Negative) mg/dL Urine Blood (Negative) Urine Nitrite (Negative) Ur Leukocyte Esterase (Negative) Urine RBC (0-2) /HPF Urine WBC (0-5) /HPF Ur Squamous Epith Cells (0-2) /HPF Urine Bacteria (None Seen) Hyaline Casts (0-2) /LPF Salicylates < 5.0 L (15-30) mg/dL Urine Opiates Screen (Not Detect) Ur Buprenorphine Scrn (Not Detect) ng/mL Ur Oxycodone Screen (Not Detect) ng/mL Urine Methadone Screen (Not Detect) ng/mL Urine Fentanyl Screen (Not Detect) Acetaminophen < 3 (<30) mcg/mL Ur Barbiturates Screen (Not Detect) Ur Phencyclidine Scrn (Not Detect) Ur Amphetamines Screen (Not Detect) U Benzodiazepines Scrn (Not Detect) Urine Cocaine Screen (Not Detect) U Marijuana (THC) Screen (Not Detect) Influenza Type A (PCR) NEGATIVE (Negative) Influenza Type B (PCR) NEGATIVE (Negative) RSV RNA Qual (PCR) NEGATIVE (Negative) SARS-CoV-2 RNA (RT-PCR) NEGATIVE (Negative) 11/12/23 11/12/23 Range/Units 15:31 17:28 WBC (4.8-10.8) X10*3/uL RBC (4.20-5.50) X10*6/uL Hgb (12.0-16.0) g/dl Hct (37.0-47.0) % MCV (80.0-98.0) fL MCH (27.0-33.0) pg MCHC (31.0-35.0) g/dl RDW (11.0-16.0) % Plt Count (160-400) X10*3/uL MPV (9.4-12.3) fL Immature Gran % (Auto) (0.0-0.4) % Neut % (Auto) (45-73) % Lymph % (Auto) (20-40) % Crawford % (Auto) (2-11) % Eos % (Auto) (0-4) % Baso % (Auto) (0-2) % Lymph # (Auto) (1.2-4.9) X10*3/uL [place] # (Auto) (0.1-1.2) X10*3/uL Eos # (Auto) (0.0-0.4) X10*3/uL Baso # (Auto) (0.0-0.2) X10*3/uL Abs Immat Gran (auto) (0.00-0.03) X10*3/uL Absolute Neuts (auto) (2.0-8.3) x10*3/uL Absolute Nucleated RBC (0.0-0.012) X10*3/uL Nucleated RBC % (auto) (0.0-0.2) /100WBC PT (11.1-13.3) SEC INR (0.9-1.1) VBG pH 7.43 (7.32-7.43) VBG pCO2 29 mmHg VBG pO2 117 mmHg VBG HCO3 19 L (22-26) mmol/L VBG O2 Saturation 100.0 % VBG Base Excess -3.5 mmol/L Sodium (135-145) mmol/L Potassium (3.3-5.1) mmol/L Chloride (96-108) mmol/L Carbon Dioxide (22-29) mmol/L Anion Gap (12-20) BUN (9-16) mg/dL Creatinine (0.5-1.4) mg/dL Estim Creat Clear Calc Estimated GFR POC Glucose (60-115) mg/dL Random Glucose (60-115) mg/dL Calcium (8.4-10.2) mg/dL Magnesium (1.6-2.6) mg/dL Total Bilirubin (0.0-1.0) mg/dL Direct Bilirubin (0.0-0.5) mg/dL AST (5-31) U/L ALT (0-31) U/L Alkaline Phosphatase (39-117) U/L Ammonia (13-55) umol/L Troponin I High Sens (<3.5-17.0) ng/L B-Natriuretic Peptide (<100) pg/mL Total Protein (6.5-8.0) g/dL Albumin (3.5-5.0) g/dL Triglycerides (<150) mg/dL Cholesterol (<200) mg/dL LDL Cholesterol, Calc (<100) mg/dL HDL Cholesterol (>40) mg/dL Urine Color Yellow Urine Appearance Clear Urine pH 6.0 (5.0-9.0) Ur Specific [place] <= 1.005 (1.005-1.025) Urine Protein 30 (1+) H (Neg-Trace) mg/dL Urine Glucose (UA) Negative (Negative) mg/dL Urine Ketones Negative (Negative) mg/dL Urine Blood Negative (Negative) Urine Nitrite Negative (Negative) Ur Leukocyte Esterase Negative (Negative) Urine RBC 0-2 (0-2) /HPF Urine WBC 0-5 (0-5) /HPF Ur Squamous Epith Cells 0-2 (0-2) /HPF Urine Bacteria None Seen (None Seen) Hyaline Casts 0-2 (0-2) /LPF Salicylates (15-30) mg/dL Urine Opiates Screen Not Detected (Not Detect) Ur Buprenorphine Scrn Not Detected (Not Detect) ng/mL Ur Oxycodone Screen Not Detected (Not Detect) ng/mL Urine Methadone Screen Not Detected (Not Detect) ng/mL Urine Fentanyl Screen Not Detected (Not Detect) Acetaminophen (<30) mcg/mL Ur Barbiturates Screen Not Detected (Not Detect) Ur Phencyclidine Scrn Not Detected (Not Detect) Ur Amphetamines Screen Not Detected (Not Detect) U Benzodiazepines Scrn Not Detected (Not Detect) Urine Cocaine Screen Not Detected (Not Detect) U Marijuana (THC) Screen Not Detected (Not Detect) Influenza Type A (PCR) (Negative) Influenza Type B (PCR) (Negative) RSV RNA Qual (PCR) (Negative) SARS-CoV-2 RNA (RT-PCR) (Negative) Independent Interpretation I performed an independent interpretation of an: EKG (I interpretation EKG normal sinus rhythm rate of 64. [place] interval 184. QTc 39), Plain X-Ray and CT Scan Radiology Impression Discussion of test interpretation with radiology: I have reviewed the radiologist's reading. Independent Historian Clinical information obtained from an independent historian. History obtained from or confirmed by: EMS and Other (Daughters) External Record Review External record reviewed: Inpatient record, Office record, Outpatient record, Prior outpatient labs, Prior outpatient radiology, Primary care record and Outside ED record Tests considered The following testing was considered but not selected: As above Chronic Conditions Patient?s care impacted by: Other (Dementia, CKD) Critical Care Time Critical Care Time Critical Care Time: Yes Total Critical Care Time: 32 Attestation: I have personally provided critical care time exclusive of time spent on separately billable procedures. Time includes review of lab data, radiology results, discussion with consultants, and monitoring for potential decompensation. Intervention performed as documented. Discharge Plan Discharge Clinical Impression: Altered mental status Patient Disposition: Admitted As Inpatient
[2023-11-12 15:24] LABS: Glucose, Whole Blood 93 mg/dL (60-115)
[2023-11-12 15:48] LABS: Appearance Urine Clear; Color Urine Yellow; Glucose Urine UA Negative (Negative); Leukocyte Esterase Urine Negative (Negative); Nitrite Urine Negative (Negative); Specific Gravity - Urine <= 1.005 (1.005-1.025); UMIC TRIGGER UACC YES; Urine Blood Negative (Negative); Urine Ketones Negative (Negative); Urine Protein 30 (1+) mg/dL (Neg-Trace)
[2023-11-12 16:00] LABS: Bacteria Urine None Seen (None Seen); Hyaline Casts Urine 0-2 /LPF (0-2); RBC Urine 0-2 /HPF (0-2); Squamous Epithelial Cell Urine 0-2 /HPF (0-2); WBC Urine 0-5 /HPF (0-5)
[2023-11-12 16:36] LABS: Amphetamine Screen Urine Not Detected (Not Detect); Barbiturates, Urine Not Detected (Not Detect); Benzodiazepines Screen Urine Not Detected (Not Detect); Buprenorphine Scr Not Detected (Not Detect); Cannabinoid Screen Urine Not Detected (Not Detect); Cocaine Screen Urine Not Detected (Not Detect); Fentanyl, urine Not Detected (Not Detect); Methadone Screen, Urine Not Detected (Not Detect); Opiate Screen Urine Not Detected (Not Detect); Oxycodone Screen Urine Not Detected (Not Detect); Phencyclidine Screen Urine Not Detected (Not Detect)
[2023-11-12 17:39] LABS: VBG Base Excess -3.5 mmol/L; VBG HCO3 19 mmol/L (22-26); VBG pCO2 29 mmHg; VBG pH 7.43 (7.32-7.43); VBG pO2 117 mmHg
[2023-11-12 17:55] VITALS: BP 144/57; PULSE 52; RESP 16; TEMP 36.7; O2SAT 95
[2023-11-12 18:21] LABS: Venous Blood Gas Refer to POC result
--- NOTE | 2023-11-12 18:21 | P.HPHOSP_ITS ---
History of Present Illness Date of Service: 11/12/23 Attending physician on admission: Yuri Marie Chief Complaint: ams 77-year-old Lithuanian-speaking female with history of insulin-dependent type 2 diabetes, paroxysmal atrial fibrillation, hypertension, chronic constipation, hx cva, history of breast cancer on tamoxifen, GERD, unspecified dementia, who is severely obese with BMI greater than 35 presents to the ED earlier today for evaluation of altered mental status. She was recently admitted to [facility] from 08/10-08/14 for acute ischemic stroke with left-sided weakness with some residual deficit. The patient is altered and is a poor historian. Per family, pt lives by her self and was recently discharged from [facility] about 1 month ago following stroke. Family visits daily and assists in care. This morning was thought to be altered from baseline with increased generalized weakness. GLucometer was reading high so called EMS. Per EMS, pre hospital POC 288 and was not given any insulin. Her daughter kajal is at bedside who does state her mother is confused from baseline and weaker but is otherwise unable to comment on her presentation. She is noted to have LUE weakness and slurred speech on my exam but daughter is unable to state if this is baseline following prior stroke. Atempt was made to reach daughter, Camila, who is more involved in the patient's care but she is unavailable at time of exam. Per the daughter the patient did receive her insulin this morning. She also states that she was taken [facility] [place] [facility] and had been upset over that. On arrival, pt hypertensive to 159/98, vitals otherwise stable. There is no leukocytosis. She has a stable normocytic anemia. Renal function baseline, electrolyte levels normal except for chloride 111, co2 17. Subsequent VBG with ph 7.43, pCO2 29, bicarb 19. Urinalysis unremarkable. Urine tox screen negative. Negative for COVID-19, RSV, influenza. Chest x-ray negative. Head CT negative for any acute intracranial abnormality. CT cervical spine negative for acute osseous abnormality but shows multilevel degenerative changes. CT abdomen/pelvis shows distended bladder with small amount of air and distended vagina containing fluid and small amount of air. 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 General surgery did evaluate and feels r/t straight catheterization and recommending admission to medicine, no surgical intervention indicated. Review of Systems 2 Review of Systems: Yes Unobtainable due to mental status [facility] Medical History Acute stroke due to ischemia Abdominal bloating Elevated TSH Preoperative clearance Bilateral leg pain Urticaria Obesity (BMI 30-39.9) Diabetic nephropathy associated with type 2 diabetes mellitus Nausea and vomiting Microalbuminuria due to type 2 diabetes mellitus Paroxysmal atrial fibrillation Slurred speech History of endometrial cancer Depression Iron deficiency anemia History of left breast cancer Hypothyroidism Schizophrenia correction (current) use of insulin Hypertension Dyslipidemia Diabetic polyneuropathy associated with type 2 diabetes mellitus Diabetes type 2, uncontrolled Family History Father No problems noted. 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 Patient Tobacco Use Status: Never used Tobacco e-Cigarette/Vaping Use: Never Used Second Hand Smoke Exposure: No Advance Directives: No Advance Directives Information Provided: No Do you have a plan to hurt others: No Plan service: No Current occupational status: disabled Cognitive needs: Yes Hearing needs: No Vision needs: Yes Meds Allergies Allergy/AdvReac Type Severity Reaction Status Date / Time JERMAINE Inhibitors AdvReac Intermediate COUGH Verified 11/08/23 09:26 [JERMAINE INHIBITORS] lactose [LACTOSE] AdvReac Intermediate GI Verified 11/12/23 12:55 DISCOMFORT Active Medications: Current Medications Acetaminophen (Acetaminophen 325 Mg Tablet) 650 mg PO Q6H PRN PRN Reason: Pain, Mild (Pain Scale 1-3), fever or headache Aspirin (Aspirin 81 Mg Tab.Chew) 162 mg PO ONCE ONE Stop: 11/12/23 18:17 Aspirin (Aspirin Enteric Coated 81 Mg Tablet.Dr) 81 mg PO DAILY RANDY Calcium Carbonate (Calcium Carbonate 750 Mg Tab.Chew) 750 mg PO Q4H PRN PRN Reason: Heartburn Glucose (Glucose Gel 15 Gm Gel..Gram.) 15 gm PO Q15M PRN; Protocol PRN Reason: per Hypoglycemia Standing Ord. Sodium Chloride (Ns) 1,000 mls @ 100 mls/hr IVCONT .Q10H RANDY Dextrose (D10) 250 mls @ 750 mls/hr IV Q15M PRN; Protocol PRN Reason: per Hypoglycemia Standing Ord. Insulin Human Lispro (Insulin Lispro 100 Unit/Ml 3 Ml Vial) 0 unit SUBCUT QIDACHS [facility]; Protocol Magnesium Hydroxide (Milk Of Magnesia 30 Ml Oral.Susp) 30 ml PO DAILY PRN PRN Reason: Constipation Melatonin (Melatonin 3 Mg Tablet) 6 mg PO BEDTIME PRN PRN Reason: Insomnia Sodium Chloride (0.9 % Sodium Chloride Flush 3 Ml Syringe) 3 ml IVFLUSH QSHIFT [facility] Home Medications ?Medication ?Instructions ?Recorded ?Confirmed ?Last Taken ?Type lancets 33 gauge #100 ea 04/09/20 11/08/23 Unknown History pen needle, diabetic 32 gauge x #50 ea 04/09/20 11/08/23 Unknown History tamoxifen 20 mg tablet 20 mg PO BEDTIME 08/11/23 11/12/23 08/10/23 History amlodipine 10 mg tablet 10 mg PO QAM 11/12/23 11/12/23 Unknown History memantine 5 mg tablet 5 mg PO BID 11/12/23 11/12/23 Unknown History Physical Exam 2 Vital Signs and Narrative: Vital Signs: Last Vital Signs Temp 98.0 F 11/12/23 17:55 Pulse 52 11/12/23 17:55 Resp 16 11/12/23 17:55 BP 144/57 H 11/12/23 17:55 Pulse Ox 95 11/12/23 17:55 O2 Del Method Room Air 11/12/23 17:55 BMI result Body Mass Index 35.9 Constitutional - Awake and Alert, No apparent distress Eyes - PERRLA, EOMI Cardiovascular - S1S2, RRR, No edema Respiratory - Normal lung expansion, Normal respiratory effort, No respiratory distress, CTA bilaterally Gastrointestinal - NT / ND; +BS; No rebound or guarding - No CVA tenderness Extremities - no calf tenderness bilaterally, no swelling Skin - Warm/Dry Neurological - Alert & oriented to self only, slurred speech, unable to follow commands but does appear to have LUE weakness otherwise strength BLE appears symmatric. PERRLA. Psychological - Appropriate affect Results Labs 11/12/23 13:53 11/12/23 13:53 Labs: Laboratory Results - last 24 hr 11/12/23 11/12/23 11/12/23 13:53 13:56 15:09 MCV 81.5 MCH 28.3 MCHC 34.7 RDW 13.0 Plt Count 242 MPV 10.3 Immature Gran % (Auto) 0.4 Neut % (Auto) 58.9 Lymph % (Auto) 29.9 Pickett % (Auto) 8.2 Eos % (Auto) 2.2 Baso % (Auto) 0.4 Lymph # (Auto) 2.9 Pickett # (Auto) 0.8 Eos # (Auto) 0.2 Baso # (Auto) 0.0 Abs Immat Gran (auto) 0.04 H Absolute Neuts (auto) 5.6 Absolute Nucleated RBC 0.000 Nucleated RBC % (auto) 0.0 PT 13.0 INR 1.1 VBG pH VBG pCO2 VBG pO2 VBG HCO3 VBG O2 Saturation VBG Base Excess Anion Gap 13 Estim Creat Clear Calc 45.6 Estimated GFR 50 POC Glucose 93 Random Glucose 154 H Calcium 9.3 Magnesium 2.1 Total Bilirubin 0.2 Direct Bilirubin < 0.2 AST 25 ALT 15 Alkaline Phosphatase 71 Ammonia 34 Troponin I High Sens 3.4 B-Natriuretic Peptide 63 Total Protein 7.2 Albumin 3.4 L Urine Color Urine Appearance Urine pH Ur Specific Cheney Urine Protein Urine Glucose (UA) Urine Ketones Urine Blood Urine Nitrite Ur Leukocyte Esterase Urine RBC Urine WBC Ur Squamous Epith Cells Urine Bacteria Hyaline Casts Salicylates < 5.0 L Urine Opiates Screen Ur Buprenorphine Scrn Ur Oxycodone Screen Urine Methadone Screen Urine Fentanyl Screen Acetaminophen < 3 Ur Barbiturates Screen Ur Phencyclidine Scrn Ur Amphetamines Screen U Benzodiazepines Scrn Urine Cocaine Screen U Marijuana (THC) Screen Influenza Type A (PCR) NEGATIVE Influenza Type B (PCR) NEGATIVE RSV RNA Qual (PCR) NEGATIVE SARS-CoV-2 RNA (RT-PCR) NEGATIVE 11/12/23 11/12/23 15:31 17:28 MCV MCH MCHC RDW Plt Count MPV Immature Gran % (Auto) Neut % (Auto) Lymph % (Auto) Pickett % (Auto) Eos % (Auto) Baso % (Auto) Lymph # (Auto) Pickett # (Auto) Eos # (Auto) Baso # (Auto) Abs Immat Gran (auto) Absolute Neuts (auto) Absolute Nucleated RBC Nucleated RBC % (auto) PT INR VBG pH 7.43 VBG pCO2 29 VBG pO2 117 VBG HCO3 19 L VBG O2 Saturation 100.0 VBG Base Excess -3.5 Anion Gap Estim Creat Clear Calc Estimated GFR POC Glucose Random Glucose Calcium Magnesium Total Bilirubin Direct Bilirubin AST ALT Alkaline Phosphatase Ammonia Troponin I High Sens B-Natriuretic Peptide Total Protein Albumin Urine Color Yellow Urine Appearance Clear Urine pH 6.0 Ur Specific Cheney <= 1.005 Urine Protein 30 (1+) H Urine Glucose (UA) Negative Urine Ketones Negative Urine Blood Negative Urine Nitrite Negative Ur Leukocyte Esterase Negative Urine RBC 0-2 Urine WBC 0-5 Ur Squamous Epith Cells 0-2 Urine Bacteria None Seen Hyaline Casts 0-2 Salicylates Urine Opiates Screen Not Detected Ur Buprenorphine Scrn Not Detected Ur Oxycodone Screen Not Detected Urine Methadone Screen Not Detected Urine Fentanyl Screen Not Detected Acetaminophen Ur Barbiturates Screen Not Detected Ur Phencyclidine Scrn Not Detected Ur Amphetamines Screen Not Detected U Benzodiazepines Scrn Not Detected Urine Cocaine Screen Not Detected U Marijuana (THC) Screen Not Detected Influenza Type A (PCR) Influenza Type B (PCR) RSV RNA Qual (PCR) SARS-CoV-2 RNA (RT-PCR) Imaging Radiologist's Impressions: Impressions Chest X-Ray 11/12/23 14:17 IMPRESSION: No evidence for acute disease in the chest. Head CT 11/12/23 14:37 IMPRESSION: 1. No CT evidence of acute intracranial hemorrhage or edematous large vessel territorial infarction. 2. No CT evidence of acute cervical spine fracture. 3. Multilevel moderate cervical spondylosis.. Cervical Spine CT 11/12/23 14:38 IMPRESSION: 1. No CT evidence of acute intracranial hemorrhage or edematous large vessel territorial infarction. 2. No CT evidence of acute cervical spine fracture. 3. Multilevel moderate cervical spondylosis.. Abdomen/Pelvis CT 11/12/23 14:39 IMPRESSION: Distended bladder with small amount of air. Post hysterectomy. Distended vagina containing fluid and small amount of air. Clinically correlate for recent bladder catheterization. Infection and possible vesicovaginal fistula should also be considered. Fullness of both renal collecting systems and ureters, question secondary to bladder distention. Fleischner guidelines were followed. Assessment and Plan (1) Altered mental status: Status: Acute Plan 77-year-old Lithuanian-speaking female with history of insulin-dependent type 2 diabetes, paroxysmal atrial fibrillation, hypertension, chronic constipation, history of breast cancer on tamoxifen, GERD, unspecified dementia, who is severely obese with BMI greater than 35 admitted for acute metabolic encephalopathy #Acute metabolic encephalopathy with LUE weakness and slurred speech -concern for CVA though unclear if LUE weakness is residual from prior CVA. Slurred speech could also be secondary to encephalopathy. ?acute worsening of dementia given emotional distress (visited granddaughters grave yesterday) -infectious work up negative including ua, cxr, covid/flu/rsv. VBG reassuring. Renal function/lytes normal -Last known well time yesterday. outside window tnk -CT head negative for acute intracranial abnormality. CTA head/neck -MRI brain ordered -nursing bedside swallow evaluation pending, however will keep NPO otherwise given lethargy -aspiration precautions, neuro checks, stroke education -ASA 162 mg now, continue 81mg daily. continue eliquis -lipid profile pending, continue atorvastatin 80mg daily -neurology consult. Consider psychiatry consult -monitor on tele #Insulin dependent type 2 diabetes -poc glucose, advance to diabetic diet -hold basal insulin for now -admelog on ss #HTN -hold antihypertensives for now in setting of possible cva # paroxysmal atrial fibrillation -continue Eliquis for anticoagulation -continue metoprolol for rate control # IBS -continue home meds # CKD stage 3/anemia of chronic disease -renal function baseline, H/H above transfusion threshold -continue ferrous sulfate DVT prophylaxis-Eliquis Full code Patient requires inpatient stay at least 2 midnights for management of acute metabolic encephalopathy with associated weakness and slurred speech with concern for possible CVA requiring advanced imaging, expert consultation, and close monitoring of mentation and for progression of symptoms Quality Stroke Does the patient have a stroke diagnosis?: No VTE Prior VTE?: No VTE Risk Level:: Medical - moderate - high VTE Device Contraindication: Treatment Not Indicated VTE Drug Contraindication: N/A - Med Ordered
[2023-11-12 18:39] LABS: Cholesterol 125 mg/dL (<200); HDL Cholesterol 27 mg/dL (>40); LDL Cholesterol Calculated 40 mg/dL (<100); Triglycerides 291 mg/dL (<150)
--- NOTE | 2023-11-12 19:07 | PHA.MEDREC ---
Addendum entered by Dolly Martins, [facility] 11/12/23 20:04: bird ignacio notified med rec complete Original Note: Pharmacy Consult ? Medication Reconciliation Pharmacy has completed the medication reconciliation. spoke with daughter over the phone through an resident services supervisor, she did not have medications with her as they were at patients house so she picked up patients med box and insulin and brought them in. Used these and claim history to verify medications.
[2023-11-12] MEDS: iohexoL 350 MG/ML 100 ML INFUS..BTL 70 ML IV (19:18)
[2023-11-12] MEDS: Dextrose 5 % and Lactated Ring 1,000 ML 100 ML IVCONT (20:34)
[2023-11-12 21:15] VITALS: BP 158/64; PULSE 50; RESP 16; TEMP 36.4; O2SAT 97
[2023-11-12 21:18] LABS: Glucose, Whole Blood 85 mg/dL (60-115)
--- NOTE | 2023-11-12 22:50 | PC.NURSE ---
pt more alert at this time. easily arousable. pt incont of urine, assist with washing and changing bed at his time. purewick placed passed swallow eval, is requesting food. MD aware
[2023-11-12] MEDS: Apixaban 5 MG TABLET PO (23:03)
[2023-11-13 00:47] VITALS: BP 163/57; PULSE 55; RESP 20; TEMP 36.4; O2SAT 97
[2023-11-13 01:00] VITALS: BMI 35.6
[2023-11-13 01:21] LABS: Glucose, Whole Blood 117 mg/dL (60-115)
[2023-11-13 03:48] VITALS: BP 171/73; PULSE 62; RESP 20; TEMP 36.2; O2SAT 98
--- NOTE | 2023-11-13 03:48 | PC.NURSE ---
Received from ED via stretcher to room 460.Awake and alert. Setswana speaking only.Assessment done via in house hospital translator and interpreter Yesi Ojeda #[id number]. Answer question appropriately. State decreased sensation to right face.Speech clear. Move all extremities.Denies blurred vision.Plan of care explained. Fall precaution initiated.Educated on stroke and pamphlets on stroke given.Need reinforcement.
[2023-11-13] MEDS: Dextrose 5 % and Lactated Ring 1,000 ML 100 ML IVCONT (05:23)
[2023-11-13 06:31] LABS: MANUAL DIFF FLAG NO
[2023-11-13 06:40] LABS: Basophils Percent Auto 0.2 % (0-2); Eosinophils Absolute Auto 0.2 X10*3/uL (0.0-0.4); Eosinophils Percent Auto 1.8 % (0-4); Hematocrit 29.3 % (37.0-47.0); Hemoglobin 10.2 g/dl (12.0-16.0); Imm Gran Abs Auto 0.03 X10*3/uL (0.00-0.03); Imm Gran Pct Auto 0.3 % (0.0-0.4); Lymphocytes Absolute Auto 2.2 X10*3/uL (1.2-4.9); Lymphocytes Percent Auto 22.5 % (20-40); Mean Corpuscular HGB Conc 34.8 g/dl (31.0-35.0); Mean Corpuscular Hemoglobin 28.2 pg (27.0-33.0); Mean Corpuscular Volume 80.9 fL (80.0-98.0); Mean Platelet Volume 10.4 fL (9.4-12.3); Monocytes Absolute Auto 0.6 X10*3/uL (0.1-1.2); Monocytes Percent Auto 6.5 % (2-11); Neutrophils Absolute Auto 6.7 x10*3/uL (2.0-8.3); Neutrophils Percent Auto 68.7 % (45-73); Platelet Count 257 X10*3/uL (160-400); Red Blood Count 3.62 X10*6/uL (4.20-5.50); White Blood Count 9.7 X10*3/uL (4.8-10.8)
[2023-11-13 07:12] LABS: Anion Gap 12 (12-20); Blood Urea Nitrogen 23 mg/dL (9-16); Calcium 9.1 mg/dL (8.4-10.2); Carbon Dioxide 20 mmol/L (22-29); Chloride 113 mmol/L (96-108); Estimated Glomerular Filt Rate 49; Glucose Random 160 mg/dL (60-115); Potassium 3.9 mmol/L (3.3-5.1); Sodium 141 mmol/L (135-145)
[2023-11-13 08:00] VITALS: BP 159/70; PULSE 97; RESP 16; TEMP 36.6; O2SAT 99
[2023-11-13 08:05] LABS: Glucose, Whole Blood 165 mg/dL (60-115)
--- NOTE | 2023-11-13 08:06 | MHC.CM.PN ---
Patient lives alone in an apartment and has daily support from her family; her Daughters are her electric car operator 9AM-7PM and at baseline, Patient uses a walker to assist with mobility. Patient may benefit from a PT Eval to assist with disposition(Home with new [facility] VS STR;Patient dc'd from STR @ [facility] @ [place] about a month ago). CM has initiated and will follow for dc planning. Patient's Daughter/Camila is the HCP and the PCP is Dr. Lois Salazar.Patient has Alzheimer's Dementia and is here with [facility]; CM will phone Daughter/HCP/Camila @ [phone] and address IMM with Camila.
[2023-11-13] MEDS: Metoclopramide HCl 5 MG TABLET PO ×3 (08:22→20:55)
[2023-11-13] MEDS: Magnesium Oxide 400 MG TABLET PO ×2 (08:22→20:55)
[2023-11-13] MEDS: Simethicone 80 MG TAB.CHEW 160 MG PO ×3 (08:22→20:56)
[2023-11-13] MEDS: Apixaban 5 MG TABLET PO ×2 (08:23→20:55)
[2023-11-13] MEDS: Aspirin Enteric Coated 81 MG TABLET.DR PO (08:23)
[2023-11-13] MEDS: Cholecalciferol (Vitamin D3) 25 MCG TABLET PO (08:23)
[2023-11-13] MEDS: Memantine HCl 5 MG TABLET PO ×2 (08:23→20:55)
[2023-11-13] MEDS: Ferrous Sulfate 324 MG TABLET.DR PO (08:23)
[2023-11-13] MEDS: Insulin Lispro 100 UNIT/ML 3 ML VIAL SUBCUT ×4 (08:23→20:56)
--- NOTE | 2023-11-13 08:29 | MHC.CM.PN ---
Patient is a LTC Resident of the [facility] in [place] and returning there to continue LTC is the goal;CM has initiated and will follow for dc planning. PCP is Mahi Clinton and HCP is Brother/Davon.
--- NOTE | 2023-11-13 09:12 | MHC.CM.PN ---
CM attempted to call Daughter/HCP/Camila @ [phone] but the phone is not accepting calls at this time.Original IMM will be mailed certified mail to Daughter and a copy has been placed on the chart.
--- NOTE | 2023-11-13 10:09 | P.CNNE_ITS ---
History of Present Illness Data of Consult Service Date: 11/13/23 Primary Care Provider: Unknown Physician HPI Reason for consult: Change in mental status 77-year-old Lithuanian-speaking female with history of insulin-dependent type 2 diabetes, paroxysmal atrial fibrillation, hypertension, chronic constipation, hx cva, history of breast cancer on tamoxifen, GERD, unspecified dementia, who is severely obese with BMI greater than 35 presents to the ED earlier today for evaluation of altered mental status. Staff is noted that yesterday she was not responsive. Today she was back to baseline. She was unable to provide any meaningful detail her history of what had happened. There was no sign of any overt seizure-like episode. There was no new weakness. Review of Systems 2 Review of Systems: No recent cold or flu-like illness PMFSH Past Medical History Medical History Acute stroke due to ischemia Abdominal bloating Elevated TSH Preoperative clearance Bilateral leg pain Urticaria Obesity (BMI 30-39.9) Diabetic nephropathy associated with type 2 diabetes mellitus Nausea and vomiting Microalbuminuria due to type 2 diabetes mellitus Paroxysmal atrial fibrillation Slurred speech History of endometrial cancer Depression Iron deficiency anemia History of left breast cancer Hypothyroidism Schizophrenia residential (current) use of insulin Hypertension Dyslipidemia Diabetic polyneuropathy associated with type 2 diabetes mellitus Diabetes type 2, uncontrolled Family History Family History Father No problems noted. 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 If so, by whom?: No Do you feel safe in your current relationship?: Yes Is there a partner from a previous relationship who is making you feel unsafe now?: No Are you made to feel afraid or neglected: No Spiritual Healthcare Practices: NONE Faith Healthcare Practices: NONE Advance Directives: No Advance Directives Information Provided: No Advance Directives on File: No Do you have a plan to hurt others: No Plan Recently lost weight without trying: No Eating poorly because of decreased appetite: No Nutrition Risks: No Nutritional Risk Patient : No : No Poor oral hygiene: No service: No Current occupational status: disabled Cognitive needs: Yes Hearing needs: No Vision needs: Yes Meds Allergies Allergy/AdvReac Type Severity Reaction Status Date / Time JERMAINE Inhibitors AdvReac Intermediate COUGH Verified 11/08/23 09:26 [JERMAINE INHIBITORS] lactose [LACTOSE] AdvReac Intermediate GI Verified 11/12/23 12:55 DISCOMFORT Active Medications: Current Medications Acetaminophen (Acetaminophen 325 Mg Tablet) 650 mg PO Q6H PRN PRN Reason: Pain, Mild (Pain Scale 1-3), fever or headache Apixaban (Apixaban 5 Mg Tablet) 5 mg PO BID [facility] Last Admin: 11/13/23 08:23 Dose: 5 mg Aspirin (Aspirin Enteric Coated 81 Mg Tablet.) 81 mg PO DAILY [facility] Last Admin: 11/13/23 08:23 Dose: 81 mg Atorvastatin Calcium (Atorvastatin Calcium 80 Mg Tablet) 80 mg PO BEDTIME [facility] Calcium Carbonate (Calcium Carbonate 750 Mg Tab.Chew) 750 mg PO Q4H PRN PRN Reason: Heartburn Famotidine (Famotidine 20 Mg Tablet) 40 mg PO BEDTIME [facility] Ferrous Sulfate (Ferrous Sulfate 324 Mg Tablet.) 324 mg PO DAILY [facility] Last Admin: 11/13/23 08:23 Dose: 324 mg Glucose (Glucose Gel 15 Gm Gel..Gram.) 15 gm PO Q15M PRN; Protocol PRN Reason: per Hypoglycemia Standing Ord. Dextrose (D10) 250 mls @ 750 mls/hr IV Q15M PRN; Protocol PRN Reason: per Hypoglycemia Standing Ord. Dextrose/Lactated Ringer's (D5lr) 1,000 mls @ 100 mls/hr IVCONT .Q10H [facility] Last Admin: 11/13/23 05:23 Dose: 100 mls/hr Insulin Human Lispro (Insulin Lispro 100 Unit/Ml 3 Ml Vial) 0 unit SUBCUT QIDACHS [facility]; Protocol Last Admin: 11/13/23 08:23 Dose: 2 unit Magnesium Hydroxide (Milk Of Magnesia 30 Ml Oral.Susp) 30 ml PO DAILY PRN PRN Reason: Constipation Magnesium Oxide (Magnesium Oxide 400 Mg Tablet) 400 mg PO BID [facility] Last Admin: 11/13/23 08:22 Dose: 400 mg Melatonin (Melatonin 3 Mg Tablet) 6 mg PO BEDTIME PRN PRN Reason: Insomnia Memantine (Memantine Hcl 5 Mg Tablet) 5 mg PO BID [facility] Last Admin: 11/13/23 08:23 Dose: 5 mg Metoclopramide HCl (Metoclopramide Hcl 5 Mg Tablet) 5 mg PO TID [facility] Last Admin: 11/13/23 08:22 Dose: 5 mg Non-Formulary Medication (Linaclotide [Linzess]) 72 mcg PO QAM [facility] Simethicone (Simethicone 80 Mg Tab.Chew) 160 mg PO TID [facility] Last Admin: 11/13/23 08:22 Dose: 160 mg Sodium Chloride (0.9 % Sodium Chloride Flush 3 Ml Syringe) [facility] Last Admin: 11/13/23 08:23 Dose: Not Given Tamoxifen Citrate (Tamoxifen Citrate 10 Mg Tablet) 20 mg PO BEDTIME [facility] Vitamin D (Cholecalciferol (Vitamin D3) 25 Mcg Tablet) 25 mcg PO DAILY [facility] Last Admin: 11/13/23 08:23 Dose: 25 mcg Home Medications ?Medication ?Instructions ?Recorded ?Confirmed ?Last Taken ?Type lancets 33 gauge #100 ea 04/09/20 11/08/23 Unknown History pen needle, diabetic 32 gauge x #50 ea 04/09/20 11/08/23 Unknown History tamoxifen 20 mg tablet 20 mg PO BEDTIME 08/11/23 11/12/23 08/10/23 History amlodipine 10 mg tablet 10 mg PO QAM 11/12/23 11/12/23 Unknown History memantine 5 mg tablet 5 mg PO BID 11/12/23 11/12/23 Unknown History Physical Exam 2 Vital Signs: Vital Signs: Last Vital Signs Temp 97.8 F 11/13/23 08:00 Pulse 97 11/13/23 08:00 Resp 16 11/13/23 08:00 BP 159/70 H 11/13/23 08:00 Pulse Ox 99 11/13/23 08:00 O2 Del Method Room Air 11/13/23 08:00 BMI result Body Mass Index 35.6 Neuro: Other: She is alert and awake with normal spontaneity of speech though she did not speak Bengali. She was following commands. She was eating when I arrived. There was no obvious sign of focal weakness or facial asymmetry or visual dysfunction. Plantars were flexor. Results Labs 11/13/23 06:05 11/13/23 06:05 Labs: Short CBC 11/12/23 11/13/23 Range/Units 13:53 06:05 WBC 9.5 9.7 (4.8-10.8) X10*3/uL Hgb 10.7 L 10.2 L (12.0-16.0) g/dl Hct 30.8 L 29.3 L (37.0-47.0) % Plt Count 242 257 (160-400) X10*3/uL BMP 11/12/23 11/13/23 13:53 06:05 Sodium 136 141 Potassium 4.7 3.9 Chloride 111 H 113 H Carbon Dioxide 17 L 20 L BUN 28 H 23 H Creatinine 1.07 1.08 Calcium 9.3 9.1 Liver Function 11/12/23 Range/Units 13:53 Total Bilirubin 0.2 (0.0-1.0) mg/dL Direct Bilirubin < 0.2 (0.0-0.5) mg/dL AST 25 (5-31) U/L ALT 15 (0-31) U/L Alkaline Phosphatase 71 (39-117) U/L Albumin 3.4 L (3.5-5.0) g/dL Urine 11/12/23 Range/Units 15:31 Urine Color Yellow Urine Appearance Clear Urine pH 6.0 (5.0-9.0) Ur Specific [place] <= 1.005 (1.005-1.025) Urine Protein 30 (1+) H (Neg-Trace) mg/dL Urine Glucose (UA) Negative (Negative) mg/dL Her recent MRI had shown right basal ganglia acute infarct but CT and CTA of brain and neck this time did not reveal any acute abnormality. Assessment and Plan (1) Altered mental status: Qualifiers: Altered mental status type: somnolence Qualified Code(s): R40.0 - Somnolence Status: Acute Etiology of change in mental status at this time is unclear. Consideration would be encephalopathy from metabolic toxic reasons, sleep disorder, or seizure disorder. I recommend an electroencephalogram to rule out seizure disorder. Procedures Date of Service Date of Service: 11/13/23
[2023-11-13 11:35] LABS: Glucose, Whole Blood 223 mg/dL (60-115)
[2023-11-13 12:00] VITALS: BP 140/65; PULSE 68; RESP 20; TEMP 37; O2SAT 97
--- NOTE | 2023-11-13 12:27 | P.PNIM_ITS ---
Subjective Subjective Date of Service: 11/13/23 Interval History: More alert this a.m. however flat affect. No acute issues overnight Review of Systems Denies chest pain Denies shortness of breath Denies nausea vomiting diarrhea Denies fever chills Physical Exam 2 Vital Signs: Vital Signs: Last Vital Signs Temp 98.6 F 11/13/23 12:00 Pulse 68 11/13/23 12:00 Resp 20 11/13/23 12:00 BP 140/65 H 11/13/23 12:00 Pulse Ox 97 11/13/23 12:00 O2 Del Method Room Air 11/13/23 12:00 BMI result Body Mass Index 35.6 Const: Other: Awake alert no acute distress Resp: Other: Clear to auscultation bilaterally no rales rhonchi or wheezes Cardio: Other: No S4; positive S1-S2; no S3 murmurs rubs or gallops GI: Other: Soft nontender nondistended normoactive bowel sounds Neuro: Other: Limited exam. Appears to move all extremities with equal power. No facial asymmetry Extrem: Other: No edema bilaterally Objective Data Active Medications Acetaminophen (Acetaminophen 325 Mg Tablet) 650 mg PO Q6H PRN PRN Reason: Pain, Mild (Pain Scale 1-3), fever or headache Apixaban (Apixaban 5 Mg Tablet) 5 mg PO BID [facility] Last Admin: 11/13/23 08:23 Dose: 5 mg Documented By: LORRAINE Aspirin (Aspirin Enteric Coated 81 Mg Tablet.) 81 mg PO DAILY [facility] Last Admin: 11/13/23 08:23 Dose: 81 mg Documented By: LORRAINE Atorvastatin Calcium (Atorvastatin Calcium 80 Mg Tablet) 80 mg PO BEDTIME [facility] Calcium Carbonate (Calcium Carbonate 750 Mg Tab.Chew) 750 mg PO Q4H PRN PRN Reason: Heartburn Famotidine (Famotidine 20 Mg Tablet) 40 mg PO BEDTIME [facility] Ferrous Sulfate (Ferrous Sulfate 324 Mg Tablet.) 324 mg PO DAILY [facility] Last Admin: 11/13/23 08:23 Dose: 324 mg Documented By: LORRAINE Glucose (Glucose Gel 15 Gm Gel..Gram.) 15 gm PO Q15M PRN; Protocol PRN Reason: per Hypoglycemia Standing Ord. Dextrose (D10) 250 mls @ 750 mls/hr IV Q15M PRN; Protocol PRN Reason: per Hypoglycemia Standing Ord. Dextrose/Lactated Ringer's (D5lr) 1,000 mls @ 100 mls/hr IVCONT .Q10H [facility] Last Admin: 11/13/23 05:23 Dose: 100 mls/hr Documented By: SOLEDAD Insulin Human Lispro (Insulin Lispro 100 Unit/Ml 3 Ml Vial) 0 unit SUBCUT QIDACHS [facility]; Protocol Last Admin: 11/13/23 11:40 Dose: 4 unit Documented By: LORRAINE Magnesium Hydroxide (Milk Of Magnesia 30 Ml Oral.Susp) 30 ml PO DAILY PRN PRN Reason: Constipation Magnesium Oxide (Magnesium Oxide 400 Mg Tablet) 400 mg PO BID [facility] Last Admin: 11/13/23 08:22 Dose: 400 mg Documented By: LORRAINE Melatonin (Melatonin 3 Mg Tablet) 6 mg PO BEDTIME PRN PRN Reason: Insomnia Memantine (Memantine Hcl 5 Mg Tablet) 5 mg PO BID [facility] Last Admin: 11/13/23 08:23 Dose: 5 mg Documented By: LORRAINE Metoclopramide HCl (Metoclopramide Hcl 5 Mg Tablet) 5 mg PO TID [facility] Last Admin: 11/13/23 08:22 Dose: 5 mg Documented By: LORRAINE Non-Formulary Medication (Linaclotide [Linzess]) 72 mcg PO QAM [facility] Simethicone (Simethicone 80 Mg Tab.Chew) 160 mg PO TID [facility] Last Admin: 11/13/23 08:22 Dose: 160 mg Documented By: LORRAINE Sodium Chloride (0.9 % Sodium Chloride Flush 3 Ml Syringe) 3 ml IVFLUSH QSHIFT [facility] Last Admin: 11/13/23 08:23 Dose: Not Given Documented By: LORRAINE Non-Admin Reason: IV Running Tamoxifen Citrate (Tamoxifen Citrate 10 Mg Tablet) 20 mg PO BEDTIME [facility] Vitamin D (Cholecalciferol (Vitamin D3) 25 Mcg Tablet) 25 mcg PO DAILY [facility] Last Admin: 11/13/23 08:23 Dose: 25 mcg Documented By: LORRAINE Labs 11/13/23 06:05 11/13/23 06:05 Labs: Laboratory Results - last 24 hr 11/12/23 11/12/23 11/12/23 13:53 13:56 15:09 MCV 81.5 MCH 28.3 MCHC 34.7 RDW 13.0 Plt Count 242 MPV 10.3 Immature Gran % (Auto) 0.4 Neut % (Auto) 58.9 Lymph % (Auto) 29.9 [place] % (Auto) 8.2 Eos % (Auto) 2.2 Baso % (Auto) 0.4 Lymph # (Auto) 2.9 [place] # (Auto) 0.8 Eos # (Auto) 0.2 Baso # (Auto) 0.0 Abs Immat Gran (auto) 0.04 H Absolute Neuts (auto) 5.6 Absolute Nucleated RBC 0.000 Nucleated RBC % (auto) 0.0 PT 13.0 INR 1.1 VBG pH VBG pCO2 VBG pO2 VBG HCO3 VBG O2 Saturation VBG Base Excess Anion Gap 13 Estim Creat Clear Calc 45.6 Estimated GFR 50 POC Glucose 93 Random Glucose 154 H Calcium 9.3 Magnesium 2.1 Total Bilirubin 0.2 Direct Bilirubin < 0.2 AST 25 ALT 15 Alkaline Phosphatase 71 Ammonia 34 Troponin I High Sens 3.4 B-Natriuretic Peptide 63 Total Protein 7.2 Albumin 3.4 L Triglycerides 291 H Cholesterol 125 LDL Cholesterol, Calc 40 HDL Cholesterol 27 L Urine Color Urine Appearance Urine pH Ur Specific [place] Urine Protein Urine Glucose (UA) Urine Ketones Urine Blood Urine Nitrite Ur Leukocyte Esterase Urine RBC Urine WBC Ur Squamous Epith Cells Urine Bacteria Hyaline Casts Salicylates < 5.0 L Urine Opiates Screen Ur Buprenorphine Scrn Ur Oxycodone Screen Urine Methadone Screen Urine Fentanyl Screen Acetaminophen < 3 Ur Barbiturates Screen Ur Phencyclidine Scrn Ur Amphetamines Screen U Benzodiazepines Scrn Urine Cocaine Screen U Marijuana (THC) Screen Influenza Type A (PCR) NEGATIVE Influenza Type B (PCR) NEGATIVE RSV RNA Qual (PCR) NEGATIVE SARS-CoV-2 RNA (RT-PCR) NEGATIVE 11/12/23 11/12/23 11/12/23 15:31 17:28 21:14 MCV MCH MCHC RDW Plt Count MPV Immature Gran % (Auto) Neut % (Auto) Lymph % (Auto) [place] % (Auto) Eos % (Auto) Baso % (Auto) Lymph # (Auto) [place] # (Auto) Eos # (Auto) Baso # (Auto) Abs Immat Gran (auto) Absolute Neuts (auto) Absolute Nucleated RBC Nucleated RBC % (auto) PT INR VBG pH 7.43 VBG pCO2 29 VBG pO2 117 VBG HCO3 19 L VBG O2 Saturation 100.0 VBG Base Excess -3.5 Anion Gap Estim Creat Clear Calc Estimated GFR POC Glucose 85 Random Glucose Calcium Magnesium Total Bilirubin Direct Bilirubin AST ALT Alkaline Phosphatase Ammonia Troponin I High Sens B-Natriuretic Peptide Total Protein Albumin Triglycerides Cholesterol LDL Cholesterol, Calc HDL Cholesterol Urine Color Yellow Urine Appearance Clear Urine pH 6.0 Ur Specific [place] <= 1.005 Urine Protein 30 (1+) H Urine Glucose (UA) Negative Urine Ketones Negative Urine Blood Negative Urine Nitrite Negative Ur Leukocyte Esterase Negative Urine RBC 0-2 Urine WBC 0-5 Ur Squamous Epith Cells 0-2 Urine Bacteria None Seen Hyaline Casts 0-2 Salicylates Urine Opiates Screen Not Detected Ur Buprenorphine Scrn Not Detected Ur Oxycodone Screen Not Detected Urine Methadone Screen Not Detected Urine Fentanyl Screen Not Detected Acetaminophen Ur Barbiturates Screen Not Detected Ur Phencyclidine Scrn Not Detected Ur Amphetamines Screen Not Detected U Benzodiazepines Scrn Not Detected Urine Cocaine Screen Not Detected U Marijuana (THC) Screen Not Detected Influenza Type A (PCR) Influenza Type B (PCR) RSV RNA Qual (PCR) SARS-CoV-2 RNA (RT-PCR) 11/13/23 11/13/23 11/13/23 01:17 06:05 08:00 MCV 80.9 MCH 28.2 MCHC 34.8 RDW 13.0 Plt Count 257 MPV 10.4 Immature Gran % (Auto) 0.3 Neut % (Auto) 68.7 Lymph % (Auto) 22.5 [place] % (Auto) 6.5 Eos % (Auto) 1.8 Baso % (Auto) 0.2 Lymph # (Auto) 2.2 [place] # (Auto) 0.6 Eos # (Auto) 0.2 Baso # (Auto) 0.0 Abs Immat Gran (auto) 0.03 Absolute Neuts (auto) 6.7 Absolute Nucleated RBC 0.000 Nucleated RBC % (auto) 0.0 PT INR VBG pH VBG pCO2 VBG pO2 VBG HCO3 VBG O2 Saturation VBG Base Excess Anion Gap 12 Estim Creat Clear Calc 45.0 Estimated GFR 49 POC Glucose 117 H 165 H Random Glucose 160 H Calcium 9.1 Magnesium Total Bilirubin Direct Bilirubin AST ALT Alkaline Phosphatase Ammonia Troponin I High Sens B-Natriuretic Peptide Total Protein Albumin Triglycerides Cholesterol LDL Cholesterol, Calc HDL Cholesterol Urine Color Urine Appearance Urine pH Ur Specific [place] Urine Protein Urine Glucose (UA) Urine Ketones Urine Blood Urine Nitrite Ur Leukocyte Esterase Urine RBC Urine WBC Ur Squamous Epith Cells Urine Bacteria Hyaline Casts Salicylates Urine Opiates Screen Ur Buprenorphine Scrn Ur Oxycodone Screen Urine Methadone Screen Urine Fentanyl Screen Acetaminophen Ur Barbiturates Screen Ur Phencyclidine Scrn Ur Amphetamines Screen U Benzodiazepines Scrn Urine Cocaine Screen U Marijuana (THC) Screen Influenza Type A (PCR) Influenza Type B (PCR) RSV RNA Qual (PCR) SARS-CoV-2 RNA (RT-PCR) 11/13/23 11:32 MCV MCH MCHC RDW Plt Count MPV Immature Gran % (Auto) Neut % (Auto) Lymph % (Auto) [place] % (Auto) Eos % (Auto) Baso % (Auto) Lymph # (Auto) [place] # (Auto) Eos # (Auto) Baso # (Auto) Abs Immat Gran (auto) Absolute Neuts (auto) Absolute Nucleated RBC Nucleated RBC % (auto) PT INR VBG pH VBG pCO2 VBG pO2 VBG HCO3 VBG O2 Saturation VBG Base Excess Anion Gap Estim Creat Clear Calc Estimated GFR POC Glucose 223 H Random Glucose Calcium Magnesium Total Bilirubin Direct Bilirubin AST ALT Alkaline Phosphatase Ammonia Troponin I High Sens B-Natriuretic Peptide Total Protein Albumin Triglycerides Cholesterol LDL Cholesterol, Calc HDL Cholesterol Urine Color Urine Appearance Urine pH Ur Specific [place] Urine Protein Urine Glucose (UA) Urine Ketones Urine Blood Urine Nitrite Ur Leukocyte Esterase Urine RBC Urine WBC Ur Squamous Epith Cells Urine Bacteria Hyaline Casts Salicylates Urine Opiates Screen Ur Buprenorphine Scrn Ur Oxycodone Screen Urine Methadone Screen Urine Fentanyl Screen Acetaminophen Ur Barbiturates Screen Ur Phencyclidine Scrn Ur Amphetamines Screen U Benzodiazepines Scrn Urine Cocaine Screen U Marijuana (THC) Screen Influenza Type A (PCR) Influenza Type B (PCR) RSV RNA Qual (PCR) SARS-CoV-2 RNA (RT-PCR) Assessment and Plan (1) Altered mental status: Status: Acute (2) CKD (chronic kidney disease) stage 3, GFR 30-59 ml/min: Status: Acute Plan 77-year-old Swedish-speaking female with history of insulin-dependent type 2 diabetes, paroxysmal atrial fibrillation, hypertension, chronic constipation, history of breast cancer on tamoxifen, GERD, unspecified dementia, who is severely obese with BMI greater than 35 admitted for acute metabolic encephalopathy 1.Acute metabolic encephalopathy with LUE weakness and slurred speech -ASA 81mg daily/eliquis/atorvastatin 80 mg daily -await MRI -appreciate neuro input; will book EEG in a.m. 2.Insulin dependent type 2 diabetes -acceptable control thus far on current therapy -lispro correctional scale -add back basal insulin once intake is documented as stable 3.HTN -permissive hypertension for additional 24 hours -restart therapies in a.m. 3.Paroxysmal atrial fibrillation -continue Eliquis for anticoagulation -continue metoprolol for rate control (acceptable) 4.CKD stage 3 -renal function baseline -follow renals and divalents -continue ferrous sulfate Eliquis Full code Patient requires ongoing hospitalization to complete workup for encephalopathy and physical therapies screen Quality Stroke Does the patient have a stroke diagnosis?: No VTE Prior VTE?: No VTE Risk Level:: Medical - moderate - high VTE Device Contraindication: Treatment Not Indicated VTE Drug Contraindication: N/A - Med Ordered
[2023-11-13 15:24] VITALS: BP 125/85; PULSE 69; RESP 20; TEMP 36.3; O2SAT 98
[2023-11-13 16:31] LABS: Glucose, Whole Blood 177 mg/dL (60-115)
[2023-11-13] MEDS: 0.9 % Sodium Chloride Flush 3 ML SYRINGE IVFLUSH (17:00)
[2023-11-13 20:00] VITALS: BP 170/72; PULSE 71; RESP 18; TEMP 36.4; O2SAT 96
[2023-11-13 20:47] LABS: Glucose, Whole Blood 286 mg/dL (60-115)
[2023-11-13] MEDS: Famotidine 20 MG TABLET 40 MG PO (20:55)
[2023-11-13] MEDS: Atorvastatin Calcium 80 MG TABLET PO (20:56)
[2023-11-13] MEDS: Tamoxifen Citrate 10 MG TABLET 20 MG PO (20:57)
[2023-11-14] VITALS: BP 163/70; PULSE 68; RESP 20; TEMP 35.8; O2SAT 94
--- NOTE | 2023-11-14 | EEG_ITS ---
This is a 16-channel EEG with an EKG lead. The patient is reported sleeping during the tracing. Background EEG rhythm is 7 to 8 hertz 5 to 50 microvolt posteriorly and lower amplitude fast anteriorly. Photic stimulation does not produce any significant driving. Hyperventilation is not performed. Cardiac lead does not reveal any significant abnormality. No sharp wave spikes or paroxysmal tendency noted. IMPRESSION: Mild generalized slowing with no evidence of seizure disorder. MD LAKSHMI Alcantar/KALYAN / [id number]
[2023-11-14] MEDS: Dextrose 5 % and Lactated Ring 1,000 ML 100 ML IVCONT ×2 (02:45→13:16)
[2023-11-14 03:37] VITALS: BP 189/74; PULSE 70; RESP 18; O2SAT 96
[2023-11-14 07:43] LABS: Glucose, Whole Blood 205 mg/dL (60-115)
[2023-11-14] MEDS: Insulin Lispro 100 UNIT/ML 3 ML VIAL SUBCUT ×4 (07:53→22:40)
[2023-11-14] MEDS: 0.9 % Sodium Chloride Flush 3 ML SYRINGE IVFLUSH (07:54)
[2023-11-14 08:00] VITALS: BP 181/77; PULSE 84; RESP 20; TEMP 36.6; O2SAT 94
[2023-11-14] MEDS: Memantine HCl 5 MG TABLET PO ×2 (09:50→22:41)
[2023-11-14] MEDS: Simethicone 80 MG TAB.CHEW 160 MG PO ×3 (09:50→22:41)
[2023-11-14] MEDS: Apixaban 5 MG TABLET PO ×2 (09:50→22:40)
[2023-11-14] MEDS: Cholecalciferol (Vitamin D3) 25 MCG TABLET PO (09:50)
[2023-11-14] MEDS: Aspirin Enteric Coated 81 MG TABLET.DR PO (09:50)
[2023-11-14] MEDS: Metoclopramide HCl 5 MG TABLET PO ×3 (09:50→22:41)
[2023-11-14] MEDS: Magnesium Oxide 400 MG TABLET PO ×2 (09:50→22:41)
[2023-11-14] MEDS: Ferrous Sulfate 324 MG TABLET.DR PO (09:50)
[2023-11-14 11:49] LABS: Glucose, Whole Blood 297 mg/dL (60-115)
[2023-11-14 12:00] VITALS: BP 171/73; PULSE 81; RESP 20; TEMP 36.6; O2SAT 94
--- NOTE | 2023-11-14 13:17 | P.PNIM_ITS ---
Subjective Subjective Date of Service: 11/14/23 Interval History: No acute issues overnight. Workup thus far unremarkable. EEG pending Review of Systems Denies chest pain Denies shortness of breath Denies nausea vomiting diarrhea Denies fever chills Physical Exam 2 Vital Signs: Vital Signs: Last Vital Signs Temp 97.9 F 11/14/23 12:00 Pulse 81 11/14/23 12:00 Resp 20 11/14/23 12:00 BP 171/73 H 11/14/23 12:00 Pulse Ox 94 11/14/23 12:00 O2 Del Method Room Air 11/14/23 12:00 BMI result Body Mass Index 35.6 Const: Other: Awake alert no acute distress Resp: Other: Clear to auscultation bilaterally no rales rhonchi or wheezes Cardio: Other: No S4; positive S1-S2; no S3 murmurs rubs or gallops GI: Other: Soft nontender nondistended normoactive bowel sounds Neuro: Other: Limited exam. Appears to move all extremities with equal power. No facial asymmetry Extrem: Other: No edema bilaterally Objective Data Active Medications Acetaminophen (Acetaminophen 325 Mg Tablet) 650 mg PO Q6H PRN PRN Reason: Pain, Mild (Pain Scale 1-3), fever or headache Apixaban (Apixaban 5 Mg Tablet) 5 mg PO BID [facility] Last Admin: 11/14/23 09:50 Dose: 5 mg Documented By: MAREN Aspirin (Aspirin Enteric Coated 81 Mg Tablet.) 81 mg PO DAILY [facility] Last Admin: 11/14/23 09:50 Dose: 81 mg Documented By: MAREN Atorvastatin Calcium (Atorvastatin Calcium 80 Mg Tablet) 80 mg PO BEDTIME [facility] Last Admin: 11/13/23 20:56 Dose: 80 mg Documented By: SOLEDAD Calcium Carbonate (Calcium Carbonate 750 Mg Tab.Chew) 750 mg PO Q4H PRN PRN Reason: Heartburn Famotidine (Famotidine 20 Mg Tablet) 40 mg PO BEDTIME [facility] Last Admin: 11/13/23 20:55 Dose: 40 mg Documented By: SOLEDAD Ferrous Sulfate (Ferrous Sulfate 324 Mg Tablet.) 324 mg PO DAILY [facility] Last Admin: 11/14/23 09:50 Dose: 324 mg Documented By: MAREN Glucose (Glucose Gel 15 Gm Gel..Gram.) 15 gm PO Q15M PRN; Protocol PRN Reason: per Hypoglycemia Standing Ord. Dextrose (D10) 250 mls @ 750 mls/hr IV Q15M PRN; Protocol PRN Reason: per Hypoglycemia Standing Ord. Dextrose/Lactated Ringer's (D5lr) 1,000 mls @ 100 mls/hr IVCONT .Q10H [facility] Last Admin: 11/14/23 13:16 Dose: 100 mls/hr Documented By: MAREN Insulin Human Lispro (Insulin Lispro 100 Unit/Ml 3 Ml Vial) 0 unit SUBCUT QIDACHS [facility]; Protocol Last Admin: 11/14/23 12:38 Dose: 6 unit Documented By: MAREN Magnesium Hydroxide (Milk Of Magnesia 30 Ml Oral.Susp) 30 ml PO DAILY PRN PRN Reason: Constipation Magnesium Oxide (Magnesium Oxide 400 Mg Tablet) 400 mg PO BID [facility] Last Admin: 11/14/23 09:50 Dose: 400 mg Documented By: MAREN Melatonin (Melatonin 3 Mg Tablet) 6 mg PO BEDTIME PRN PRN Reason: Insomnia Memantine (Memantine Hcl 5 Mg Tablet) 5 mg PO BID [facility] Last Admin: 11/14/23 09:50 Dose: 5 mg Documented By: MAREN Metoclopramide HCl (Metoclopramide Hcl 5 Mg Tablet) 5 mg PO TID [facility] Last Admin: 11/14/23 09:50 Dose: 5 mg Documented By: MAREN Non-Formulary Medication (Linaclotide [Linzess]) 72 mcg PO QAM [facility] Simethicone (Simethicone 80 Mg Tab.Chew) 160 mg PO TID [facility] Last Admin: 11/14/23 09:50 Dose: 160 mg Documented By: MAREN Sodium Chloride (0.9 % Sodium Chloride Flush 3 Ml Syringe) 3 ml IVFLUSH QSHIFT [facility] Last Admin: 11/14/23 07:54 Dose: 3 ml Documented By: MAREN Tamoxifen Citrate (Tamoxifen Citrate 10 Mg Tablet) 20 mg PO BEDTIME [facility] Last Admin: 11/13/23 20:57 Dose: 20 mg Documented By: SOLEDAD Vitamin D (Cholecalciferol (Vitamin D3) 25 Mcg Tablet) 25 mcg PO DAILY [facility] Last Admin: 11/14/23 09:50 Dose: 25 mcg Documented By: MAREN Labs 11/13/23 06:05 11/13/23 06:05 Labs: Laboratory Results - last 24 hr 11/13/23 11/13/23 11/14/23 16:21 20:42 07:36 POC Glucose 177 H 286 H 205 H 11/14/23 11:45 POC Glucose 297 H Assessment and Plan (1) Altered mental status: Status: Acute (2) CKD (chronic kidney disease) stage 3, GFR 30-59 ml/min: Status: Acute Plan 77-year-old Northern Irish-speaking female with history of insulin-dependent type 2 diabetes, paroxysmal atrial fibrillation, hypertension, chronic constipation, history of breast cancer on tamoxifen, GERD, unspecified dementia, who is severely obese with BMI greater than 35 admitted for acute metabolic encephalopathy 1.Acute metabolic encephalopathy with LUE weakness and slurred speech -ASA 81mg daily/eliquis/atorvastatin 80 mg daily -MRI without acute issues -appreciate neuro input; EEG pending 2.Insulin dependent type 2 diabetes -acceptable control thus far on current therapy -lispro correctional scale -add back basal insulin once intake is documented as stable 3.HTN -permissive hypertension for additional 24 hours -restart therapies in a.m. 3.Paroxysmal atrial fibrillation -continue Eliquis for anticoagulation -continue metoprolol for rate control (acceptable) 4.CKD stage 3 -renal function baseline -follow renals and divalents -continue ferrous sulfate Eliquis Full code Patient requires ongoing hospitalization to complete workup for encephalopathy and physical therapies screen Quality Stroke Does the patient have a stroke diagnosis?: No VTE Prior VTE?: No VTE Risk Level:: Medical - moderate - high VTE Device Contraindication: Treatment Not Indicated VTE Drug Contraindication: N/A - Med Ordered
[2023-11-14 16:00] VITALS: BP 172/76; PULSE 80; RESP 20; TEMP 36.7; O2SAT 95
--- NOTE | 2023-11-14 16:04 | MHC.CM.PN ---
EMR reviewed and per MD rounds, pt is not medically cleared for discharge due to management and workup of encephalopathy. PT and OT evals were done today and they are recommending STR. This CM met with pt with the assistance of a brilliandeer looper to discuss her discharge plan. Pt would like this CM to speak to her daughter to discuss discharge plan. This CM called pts daughter/HCP Camila with brilliandeer looper to discuss and per Camila she would like her mother to return home and would not like her to go to STR. Additionally Camila stated that she would not like to be the HCP any longer as she is worried that the hospital will try to come after her for payment. Camila was informed on what a HCP is and that is does not have anything to do with finances. This CM called pts alternate HCP/daughter Kajal to discuss and left her a voicemail, awaiting return call. No STR referrals placed at this time.
[2023-11-14 16:10] LABS: Glucose, Whole Blood 296 mg/dL (60-115)
[2023-11-14 20:00] VITALS: BP 161/69; PULSE 89; RESP 20; TEMP 37.2; O2SAT 93
[2023-11-14 21:17] LABS: Glucose, Whole Blood 393 mg/dL (60-115)
[2023-11-14] MEDS: Atorvastatin Calcium 80 MG TABLET PO (22:40)
[2023-11-14] MEDS: Tamoxifen Citrate 10 MG TABLET 20 MG PO (22:41)
[2023-11-14] MEDS: Famotidine 20 MG TABLET 40 MG PO (22:41)
[2023-11-15] VITALS: BP 179/70; PULSE 94; RESP 20; TEMP 36.5; O2SAT 96
[2023-11-15 04:00] VITALS: BP 168/76; PULSE 107; RESP 20; TEMP 36.6
[2023-11-15 07:27] VITALS: BP 187/81; PULSE 85; RESP 20; O2SAT 97
[2023-11-15 07:58] LABS: Glucose, Whole Blood 258 mg/dL (60-115)
[2023-11-15] MEDS: Cholecalciferol (Vitamin D3) 25 MCG TABLET PO (08:42)
[2023-11-15] MEDS: Apixaban 5 MG TABLET PO (08:42)
[2023-11-15] MEDS: Magnesium Oxide 400 MG TABLET PO (08:42)
[2023-11-15] MEDS: Insulin Lispro 100 UNIT/ML 3 ML VIAL SUBCUT ×2 (08:42→12:16)
[2023-11-15] MEDS: Simethicone 80 MG TAB.CHEW 160 MG PO (08:42)
[2023-11-15] MEDS: Metoclopramide HCl 5 MG TABLET PO (08:43)
[2023-11-15] MEDS: Aspirin Enteric Coated 81 MG TABLET.DR PO (08:43)
[2023-11-15] MEDS: Memantine HCl 5 MG TABLET PO (08:43)
[2023-11-15] MEDS: Ferrous Sulfate 324 MG TABLET.DR PO (08:43)
--- NOTE | 2023-11-15 10:36 | P.DS_ITS ---
DS: Providers Provider Date of Service: 11/15/23 Date of admission: 11/12/23 19:54 Date of discharge: 11/15/23 Primary care physician: Lois Salazar MD Consults: 11/12/23 18:15 Consult to Neurology Routine Consulting Provider: [facility] Reason for consultation: encephalopathy, ?cva DS: Diagnosis Discharge Diagnosis (1) Altered mental status: Status: Acute (2) CKD (chronic kidney disease) stage 3, GFR 30-59 ml/min: Status: Acute DS: Summary Hospital Course Hospital Course: 77-year-old [place]-speaking female with history of insulin-dependent type 2 diabetes, paroxysmal atrial fibrillation, hypertension, chronic constipation, hx cva, history of breast cancer on tamoxifen, GERD, unspecified dementia, who is severely obese with BMI greater than 35 presents to the ED earlier today for evaluation of altered mental status. She was recently admitted to [facility] from 08/10-08/14 for acute ischemic stroke with left-sided weakness with some residual deficit. The patient is altered and is a poor historian. Per family, pt lives by her self and was recently discharged from [facility] about 1 month ago following stroke. Family visits daily and assists in care. This morning was thought to be altered from baseline with increased generalized weakness. GLucometer was reading high so called EMS. Per EMS, pre hospital POC 288 and was not given any insulin. Her daughter lian is at bedside who does state her mother is confused from baseline and weaker but is otherwise unable to comment on her presentation. She is noted to have LUE weakness and slurred speech on my exam but daughter is unable to state if this is baseline following prior stroke. Atempt was made to reach daughter, Camila, who is more involved in the patient's care but she is unavailable at time of exam. Per the daughter the patient did receive her insulin this morning. She also states that [facility] and had been upset over that. On arrival, pt hypertensive to 159/98, vitals otherwise stable. There is no leukocytosis. She has a stable normocytic anemia. Renal function baseline, electrolyte levels normal except for chloride 111, co2 17. Subsequent VBG with ph 7.43, pCO2 29, bicarb 19. Urinalysis unremarkable. Urine tox screen negative. Negative for COVID-19, RSV, influenza. Chest x-ray negative. Head CT negative for any acute intracranial abnormality. CT cervical spine negative for acute osseous abnormality but shows multilevel degenerative changes. CT abdomen/pelvis shows distended bladder with small amount of air and distended vagina containing fluid and small amount of air. 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 General surgery did evaluate and feels r/t straight catheterization and recommending admission to medicine, no surgical intervention indicated. Hospital Course Patient admitted to telemetry where monitor failed to demonstrated. Initial workup including MRI head CT head neck CT failed to demonstrate any acute pathologies. EEG was done at Neurology request and was without seizure activity. On the morning of discharge patient is awake smiling in ambulatory without walker. Family at bedside and wish to take patient home; I believe this is medically appropriate at this time. She will be discharged home to resume her previous medicines and follow up with her PCP and specialty providers as scheduled Time Attestation Discharge Coordination Time (in mins): 35 Quality: Safe Use of Opioids Does Pt have an Active Cancer Diagnosis on the Problem List?: No Quality: Stroke Does the patient have a stroke diagnosis?: No Physical Exam Vital Signs: Vital Signs: Last Vital Signs Temp 97.8 F 11/15/23 04:00 Pulse 85 11/15/23 07:27 Resp 20 11/15/23 07:27 BP 187/81 H 11/15/23 07:27 Pulse Ox 97 11/15/23 07:27 O2 Del Method Room Air 11/15/23 07:27 BMI result Body Mass Index 35.6 Const: Other: Awake alert no acute distress Resp: Other: Clear to auscultation bilaterally no rales rhonchi or wheezes Cardio: Other: No S4; positive S1-S2; no S3 murmurs rubs or gallops GI: Other: Soft nontender nondistended normoactive bowel sounds Neuro: Other: Limited exam. Appears to move all extremities with equal power. No facial asymmetry Extrem: Other: No edema bilaterally DS: Data Data Completed and Pending Labs on day of discharge: Laboratory Results - last 24 hr 11/14/23 11/14/23 11/14/23 11:45 15:57 21:02 POC Glucose 297 H 296 H 393 H* 11/15/23 07:42 POC Glucose 258 H Discharge Plan Discharge Anticipated Discharge Date/Time: 11/15/23 10:33 Patient Disposition: Home, Self-Care Discharge Diagnosis: Altered mental status Referrals: Lois Salazar MD [Primary Care Provider] - 1 Week Discharge Medications: Continued (DME) diabetic shoes with 3 inserts 8 See Rx Instructions .Route .MEDSUPPLY Qty: 3 0RF Rx Instructions: As directed (DME) blood-glucose meter [FreeStyle Precision En Meter] Misc See Rx Instructions .Route Qty: 1 0RF Rx Instructions: Tests 4 X/day (DME) lancets [TRUEplus Lancets] 33 gauge misc See Rx Instructions .ROUTE .COMPLEX Qty: 100 4RF Dose Instruction: TEST BLOOD SUGAR FOUR TIMES DAILY Rx Instructions: TEST BLOOD SUGAR FOUR TIMES DAILY (DME) FreeStyle Carola 2 Council Misc See Rx Instructions .Route Qty: 1 0RF Rx Instructions: As directed (DME) pen needle, diabetic [UltiCare Pen Needle] 32 gauge x needle See Rx Instructions .ROUTE .COMPLEX Qty: 200 4RF Dose Instruction: USE THREE TIMES DAILY Rx Instructions: USE THREE TIMES DAILY cholecalciferol (vitamin D3) [Vitamin D3] 25 mcg (1,000 unit) capsule 25 mcg PO DAILY Qty: 30 11RF magnesium oxide 250 mg magnesium tablet 250 mg PO BID Qty: 180 2RF valsartan 320 mg tablet 320 mg PO DAILY Qty: 90 2RF famotidine 40 mg tablet 40 mg PO BEDTIME Qty: 30 6RF metoclopramide HCl 5 mg tablet 5 mg PO TID Qty: 90 6RF ferrous sulfate 325 mg (65 mg iron) tablet 325 mg PO DAILY 90 Days Qty: 90 3RF metoprolol succinate 100 mg tablet extended release 24 hr 100 mg PO QAM Qty: 90 3RF atorvastatin 80 mg tablet 80 mg PO BEDTIME Qty: 30 11RF Eliquis 5 mg tablet 5 mg PO BID Qty: 180 1RF (DME) FreeStyle Precision En Strips Strip See Rx Instructions .ROUTE .COMPLEX Qty: 100 4RF Dose Instruction: TEST BLOOD SUGAR FOUR TIMES DAILY Rx Instructions: TEST BLOOD SUGAR FOUR TIMES DAILY amlodipine 10 mg tablet 10 mg PO QAM memantine 5 mg tablet 5 mg PO BID tamoxifen 20 mg tablet 20 mg PO BEDTIME (DME) cane Device See Rx Instructions .Route Qty: 1 0RF Rx Instructions: As directed (DME) compr.stocking,knee,long,large Misc See Rx Instructions .ROUTE .MEDSUPPLY Qty: 12 0RF Rx Instructions: As directed (DME) pen needle, diabetic 32 gauge x 5/32 needle See Rx Instructions subcut .MEDSUPPLY Qty: 50 Rx Instructions: As directed (DME) lancets 33 gauge misc See Rx Instructions Not Applicable QID Qty: 100 Rx Instructions: As directed Linzess 72 mcg capsule 72 mcg PO QAM Qty: 30 6RF simethicone 180 mg capsule 180 mg PO TID Qty: 90 3RF insulin glargine U-300 conc [Toujeo Max U-300 SoloStar] 300 unit/mL (3 mL) insulin pen 65 unit subcut DAILY Qty: 12 4RF insulin lispro [Humalog KwikPen Insulin] 100 unit/mL insulin pen 35 unit subcut TID 30 Days Qty: 31.5 11RF Rx Instructions: Hold dinner humalog if sugar less than 200. (DME) FreeStyle Carola 2 Sensor Kit See Rx Instructions .ROUTE .COMPLEX Qty: 2 5RF Dose Instruction: USE DIRECTED CHANGE EVERY 14 DAYS Rx Instructions: USE DIRECTED CHANGE EVERY 14 DAYS Discharge Orders: Discharge Order (Routine); Ordered 11/15/23 Ordered By: Yuri Marie Diet: Advance to usual diet Activity on Discharge: As tolerated Stand Alone Forms: Patient Portal Discharge page Print Language: [place] Care Plan Goals: Resume all medications as taken before hospital Health Concerns: Follow-up with PCP and specialty providers as ordered Plan of Treatment: Utilize walker with ambulation Assessment: See discharge summary
[2023-11-15 11:31] VITALS: BP 129/76; PULSE 83; RESP 18; TEMP 37.6; O2SAT 97
--- NOTE | 2023-11-15 11:36 | P.F2F_ITS ---
Service Date Service Date: 11/15/23 Encounter Date of encounter: 11/15/23 Encounter: Acute hospitalization Reasons for Services Signs and symptoms assessed: Decreased mobility and unsteady gait; med management Reason for group home: monitoring of unstable blood sugar, medication management and teach disease management Homebound: Leaving the home is medically contraindicated at this time without the asist of a device and/or another person due th the listed conditions above and below. Reason homebound: unsteady gait / fall risk and unable to drive Certification: Based on the above findings, I certify that this patient is confined to the home and needs intermittent group home care, physical therapy and/or speech therapy, or continues to need occupational therapy. The patient is under my care, and I have initiated the establishment of the plan of care. The patient will be followed by a physician who will periodically review the plan of care. Time Spent With Patient Time: Total time managing care of this patient today ____ minutes.
--- NOTE | 2023-11-15 11:41 | MHC.CM.PN ---
IMM 11/13/23 Patient is discharged to home with [facility]. Patient has arranged for transportation home.
[2023-11-15 11:52] LABS: Glucose, Whole Blood 335 mg/dL (60-115)
== END 2023-11-15 13:00 | disposition home health service (06) | DRG 72 ==
LOC: HO.ED 16:45 → HO.EDOVER 19:58 → HO.IMC 22:59
PROVIDERS: Physician Assistant; Admitting Provider Physician Assistant; Emergency Provider Emergency Medicine; PCP Family Medicine; Visit Provider Hospitalist
DX: G93.41 Metabolic encephalopathy (principal); I12.9 Hypertensive chronic kidney disease with stage 1 through stage 4 chronic kidney disease, or unspecified chronic kidney disease; N18.30 Chronic kidney disease, stage 3 unspecified; C50.912 Malignant neoplasm of unspecified site of left female breast; K58.1 Irritable bowel syndrome with constipation; G30.9 Alzheimer's disease, unspecified; F02.80 Dementia in other diseases classified elsewhere, unspecified severity, without behavioral disturbance, psychotic disturbance, mood disturbance, and anxiety; F20.9 Schizophrenia, unspecified; D63.1 Anemia in chronic kidney disease; E11.42 Type 2 diabetes mellitus with diabetic polyneuropathy; E11.22 Type 2 diabetes mellitus with diabetic chronic kidney disease; I48.0 Paroxysmal atrial fibrillation; Z20.822 Contact with and (suspected) exposure to COVID-19; Z79.4 Long term (current) use of insulin; Z79.01 Long term (current) use of anticoagulants; Z79.810 Long term (current) use of selective estrogen receptor modulators (SERMs); Z79.899 Other long term (current) drug therapy
CPT/HCPCS: 0241U; 36415; 70450; 70496; 70498; 70551; 71045; 72125; 74176; 80048; 80061; 80076; 80143; 80179; 80307; 81001; 82140; 82803; 82947; 83735; 83880; 84484; 85025; 85610; 93005; 95816; 97116; 97162; 97166; 99285; Q9967

== ENCOUNTER → 2023-11-12 13:39 | Outpatient (BNV) | payer OTHER, SELFPAY | PROVIDERS: Admitting Provider Physician Assistant; Emergency Provider Emergency Medicine; Visit Provider Internal Medicine Cardiovascular Disease | DX: R94.31 Abnormal electrocardiogram [ECG] [EKG] (principal) | CPT/HCPCS: 93010 ==

== ENCOUNTER → 2023-11-12 19:54 | Outpatient (BNV) | payer OTHER, SELFPAY | PROVIDERS: Admitting Provider Physician Assistant; Emergency Provider Emergency Medicine; Visit Provider Physician Assistant | DX: N18.30 Chronic kidney disease, stage 3 unspecified (principal); R40.0 Somnolence; R41.82 Altered mental status, unspecified | CPT/HCPCS: 99223; 99232; 99233; 99239; G0180 ==

== ENCOUNTER → 2023-11-12 19:54 | Outpatient (BNV) | payer OTHER, SELFPAY | PROVIDERS: Admitting Provider Physician Assistant; Emergency Provider Emergency Medicine; Visit Provider Psychiatry & Neurology Neurology | DX: R40.0 Somnolence (principal) | CPT/HCPCS: 99222 ==

== ENCOUNTER 2023-11-16 09:02 | Outpatient (REF) | payer OTHER, SELFPAY ==
--- NOTE | ~2023-11-16 | US_ITS ---
EXAMINATION: US RETROPERITONEAL LIMITED (RENAL ONLY) CLINICAL INFORMATION: Chronic kidney disease, stage III unspecified. COMPARISON: CT abdomen and pelvis 11/12/2023. Ultrasound abdomen 10/27/2012 and 10/08/2008. TECHNIQUE: Real-time imaging of the kidneys. Limited visualization due to bowel gas. FINDINGS: RIGHT KIDNEY: 12.3 x 4.5 x 4.7 cm (SAG x AP x TRV). No hydronephrosis. No renal calculi. Limited visualization. Renal cortex appears lobulated with normal thickness. Prominent perinephric fat with possible trace of perinephric fluid. LEFT KIDNEY: 12.1 x 4.1 x 4.4 cm (SAG x AP x TRV). No hydronephrosis. No renal calculi. Limited visualization. Renal cortex appears lobulated with normal thickness. Prominent perinephric fat with possible trace of perinephric fluid. US/US renal BI IMPRESSION: No hydronephrosis. No renal calculi. Limited visualization. Renal cortex appears lobulated with normal thickness. Prominent perinephric fat with possible trace of perinephric fluid.
== END 2023-11-16 09:03 | disposition home or self-care (01) ==
LOC: HO.US 09:02
PROVIDERS: PCP Family Medicine; Visit Provider Psychiatry & Neurology Neurology
DX: N18.30 Chronic kidney disease, stage 3 unspecified (principal)
CPT/HCPCS: 76775

== ENCOUNTER 2023-12-07 09:23 | Outpatient (AMB) | payer OTHER, SELFPAY ==
--- NOTE | 2023-12-07 09:46 | MHC.AMDMED ---
Intake Intake Visit Reasons: 30 min/LVM Science Liaison Required: Yes Science Liaison Language: Pega Developer Name: Leydi [facility] [place] Information Interpreted: non-clinical & clinical Accompanied by: Other Relationship Allergies JERMAINE Inhibitors [JERMAINE INHIBITORS] Adverse Reaction (Intermediate, Verified 11/08/23 09:26) COUGH lactose [LACTOSE] Adverse Reaction (Intermediate, Verified 11/12/23 12:55) GI DISCOMFORT HPI Comprehensive Diabetes Asmnt Most Recent Diabetes Results: Cholesterol 125 mg/dL (<200) 11/12/23 HDL Cholesterol 27 mg/dL (>40) L 11/12/23 Triglycerides 291 mg/dL (<150) H 11/12/23 Creatinine 1.08 mg/dL (0.5-1.4) 11/13/23 Blood Urea Nitrogen 23 mg/dL (9-16) H 11/13/23 Sodium 141 mmol/L (135-145) 11/13/23 Potassium 3.9 mmol/L (3.3-5.1) 11/13/23 Chloride 113 mmol/L (96-108) H 11/13/23 Carbon Dioxide 20 mmol/L (22-29) L 11/13/23 Calcium 9.1 mg/dL (8.4-10.2) 11/13/23 AST 25 U/L (5-31) 11/12/23 ALT 15 U/L (0-31) 11/12/23 Total Protein 7.2 g/dL (6.5-8.0) 11/12/23 Albumin 3.4 g/dL (3.5-5.0) L 11/12/23 PFSH Medical History Acute stroke due to ischemia Abdominal bloating Elevated TSH Preoperative clearance Bilateral leg pain Urticaria Obesity (BMI 30-39.9) Diabetic nephropathy associated with type 2 diabetes mellitus Nausea and vomiting Microalbuminuria due to type 2 diabetes mellitus Paroxysmal atrial fibrillation Slurred speech History of endometrial cancer Depression Iron deficiency anemia History of left breast cancer Hypothyroidism 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 Assess patient education level/literacy/barriers Patient questions/concerns, patient at visit with MOLDING SUPERVISOR, Unfortunately, patient does not have meter today. Discussed MOLDING SUPERVISOR current diabetes medications for patient She confirmed Toujeo 65 units daily Humalog 35 units before meals She receives her oral medications in a med box. MOLDING SUPERVISOR did not have current list medications. The patient met all learning objectives and was able to verbalize understanding and provide teach back of education topics discussed . The patient was provided with the opportunity to ask questions and all questions were answered. Topics covered in today?s session included: Insulin/Injectables (If applicable) Storage/care of insulin?? Injection sites? Site rotation? Onset, peak, duration Drawing up insulin? Injecting insulin/other injectables? Sharps disposal Continuous blood glucose monitoring (if applicable) Hypoglycemia and Hyperglycemia Signs and symptoms? Causes?? Treatment? Preventing hypoglycemia? When to seek medical attention ?Patient's MOLDING SUPERVISOR was receptive to information provided and participated in the discussion. Asked?appropriate questions and demonstrated good understanding of the topics discussed.? ? Educational Materials: The patient was provided with the following written educational materials: How to treat hypoglycemia handout Smart Goal: Bring glucose reader? to visit at endocrine center Portions of this note were created using voice recognition software, please excuse any words or phrases that may have been misinterpreted. Patient Instructions: Bring current med list and Carola reader to next visit with DRAWING TRACER. Follow-up with development educator 1 month after visit with DRAWING TRACER Coding Level of Care Code Est Pt Level 1 (68018) Diagnoses Microalbuminuria due to type 2 diabetes mellitus E11.29; R80.9
== END 2023-12-07 09:50 | disposition home or self-care (01) ==
PROVIDERS: PCP Family Medicine; Visit Provider Registered Nurse Diabetes Educator
DX: E11.29 Type 2 diabetes mellitus with other diabetic kidney complication (principal); R80.9 Proteinuria, unspecified

== ENCOUNTER → 2023-12-07 09:23 | Outpatient (BNVA) | payer OTHER, SELFPAY | PROVIDERS: PCP Family Medicine; Visit Provider Registered Nurse Diabetes Educator | DX: E11.29 Type 2 diabetes mellitus with other diabetic kidney complication (principal); R80.9 Proteinuria, unspecified; Z71.89 Other specified counseling | CPT/HCPCS: 99211 ==

== ENCOUNTER 2023-12-16 08:56 | Outpatient (AMB) | payer OTHER, SELFPAY ==
[2023-12-16 08:58] VITALS: BP 102/58; PULSE 55; BMI 33.3
--- NOTE | 2023-12-16 08:58 | A.OFFVIS_ITS ---
Vital Signs 12/16/23 08:58 Height 5 ft 3 in Weight 187 lb 13.341 oz BMI 33.3 BP 102/58 L Blood Pressure Location Rt brachial Position Sitting Pulse 55 Pulse Source Pulse Oximeter Intake Visit Reasons: Type 2 DM/LVM Intake Note: New Patient presents today to establish treatment for Type 2 Diabetes Mellitus. Last diabetic eye exam was on: 09/2023 Last Podiatry Exam was on: Doesn't have one. Most recent HbA1c: 8.9% Random Glucose- 195 mg/dL, Today Medical Secretary Teacher Required: Yes Medical Secretary Teacher Language: Frame Repairer Services: Medical Secretary Teacher Present Medical Secretary Teacher Name: Nay Information Interpreted: non-clinical & clinical Accompanied by: TELECOMMUNICATION EQUIPMENT REPAIRER Allergies JERMAINE Inhibitors [JERMAINE INHIBITORS] Adverse Reaction (Intermediate, Verified 12/16/23 09:04) COUGH lactose [LACTOSE] Adverse Reaction (Intermediate, Verified 12/16/23 09:04) GI DISCOMFORT HPI Comments Details: Patient is 78-year-old female with DM type 2 diagnosed 1995 who presents for management of diabetes. , Past medical history: DM2, bipolar disorder, schizophrenia, hypertension, hyperlipidemia, GERD, allergic rhinitis. Left breast cancer, s/p surgery, endometrial and ovarian cancer s/p total hysterectomy Micro and macrovascular complications: nephropathy, neuropathy, Diabetes medications: Toujeo 65 units units Humalog 35 units Ac Metformin 750mg BID She was recently started on freestyle Carola 2. average glucose: [197] Glucose Management indicator [ unable to calculate his recently who was started on the sensor] % TIme in range: 18 % very high (above 250) Thirty-eight % high (181-250) Forty-one % in range (70-180] 3 % low (69-55) 0 % very low (below 54) Symptoms reported: = numbness, tingling, no cramping in lower extremities Hypoglycemia: denies Hyperglycemia: denies urinary frequency, + nocturia, + polydypsia Insert thank you Strategic Insights Lead - CDE education: recently Consulting Database Administrator: none recently Dental exam: , goes every 6 month Ophthalmology evaluation: . Last appt yesterday Daughter states patient is non compliant with diet and eats excessive amount of sugary foods before breakfast and sometimes i does not eat dinner Laboratory Tests 06/23/21 06/23/21 06/23/21 09:50 09:50 09:50 Creatinine Estimated GFR Hgb A1c (Clinic) Triglycerides Cholesterol LDL Cholesterol Direct 63 LDL Cholesterol, Calc HDL Cholesterol 25-OH Vitamin D Total TSH 3.65 Free T4 1.22 Microalb/Creat Ratio 08/06/21 08/13/21 08/13/21 11:15 09:40 09:49 Creatinine 1.20 Estimated GFR 44 Hgb A1c (Clinic) 8.5 H Triglycerides 116 Cholesterol 117 LDL Cholesterol Direct LDL Cholesterol, Calc 66 HDL Cholesterol 28 25-OH Vitamin D Total 39.2 TSH Free T4 Microalb/Creat Ratio 560.5 Was hospitalized in July 2023 for CVA PFSH Medical History Acute stroke due to ischemia Abdominal bloating Elevated TSH Preoperative clearance Bilateral leg pain Urticaria Obesity (BMI 30-39.9) Diabetic nephropathy associated with type 2 diabetes mellitus Nausea and vomiting Microalbuminuria due to type 2 diabetes mellitus Paroxysmal atrial fibrillation Slurred speech History of endometrial cancer Depression Iron deficiency anemia History of left breast cancer Hypothyroidism Schizophrenia watermelon inspector (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 Patient Tobacco Use Status: Never used Tobacco e-Cigarette/Vaping Use: Never Used Second Hand Smoke Exposure: No service: No Current occupational status: disabled Cognitive needs: Yes Hearing needs: No Vision needs: Yes Physical Exam Vital Signs: Last Vital Signs Pulse 55 12/16/23 08:58 BP 102/58 L 12/16/23 08:58 BMI result Body Mass Index 33.3 Const General: cooperative and healthy appearing Nutritional Appearance: overweight Neck Neck: Yes normal visual inspection Thyroid: Thyroid normal Resp Effort & Inspection: normal respiratory effort Cardio Jugular venous distension: no JVD Rate: regular rate Rhythm: regular rhythm Heart sounds: S1 normal heart sound present and S2 normal heart sound present Extrem Other: Visual exam of foot performed. No ulcerations or open lesions. No onchomycosis, no callouses. Sensation intact to monofilament exam. Vibratory sensation is normal with 128 Hz tuning fork. Results AMB Hemoglobin A1c AMB Hemoglobin A1c 8.9 % Last Edit by ANATOLY Chong on 12/16/23 09:17 Quality Reporting (2019) Adult ([facility] 138/2/) Smoking risk assessment performed?: Yes Patient Tobacco Use Status: Never used Tobacco Results Reviewed Results Reviewed: Laboratory Last Values Glucose (Clinic) 195 mg/dL (60-115) H 12/16/23 09:08 Laboratory Tests 05/27/23 11/13/23 11/15/23 09:07 06:05 11:33 Plt Count 257 POC Glucose 335 H Urine Creatinine 125.70 Urine Microalbumin > 2000.0 Microalb/Creat Ratio 1591.0 H Assessment & Plan Assessment & Plan (1) Diabetes type 2, uncontrolled: Code(s): E11.65 - Type 2 diabetes mellitus with hyperglycemia Category: Medical Qualifiers: Glycemic state: with hyperglycemia Qualified Code(s): E11.65 - Type 2 diabetes mellitus with hyperglycemia Plan: 70-year-old type 2 diabetic with longstanding history of poor control. A1c in the office today is 8.9%. She was recently started on a freestyle to Carola sensor and sensor download shows an escalation of sugars from lunch on owusu. Continue metformin. Continue same dose of Humalog. Change Toujeo to Tresiba. We will escalate dose of Humalog as needed at her follow-up visit in 2 weeks. Patient was encouraged to continue to see her physical therapy director and art instructor on a regular basis. I will request labs next visit in 2 weeks. Patient teaching: The patient was counseled to achieve a target A1C of 7% (154 avg). Fasting blood sugars should be 90-130 in the morning and less than 180 two hours after meals. Reviewed the relationship between poor diabetic control and the developement of complications. The patient was counseled to always carry a source of sugar and on the rule of 15's: Take 3 glucose tablets and repeat again in 15 minutes if blood sugar is not in normal range. Continue to repeat every 15 minutes until blood sugar is normal. Orders: Orders AMB Hemoglobin A1c Today E11.65 - Type 2 diabetes mellitus with hyperglycemia, Z13.9 - Encounter for screening, unspecified Medications: New insulin degludec (Tresiba FlexTouch U-200 insulin) 65 units (0.325 mL) subcut DAILY 12 mL 11RF E11.65 - Type 2 diabetes mellitus with hyperglycemia Coding Level of Care Code Est Pt Level 5 (29671) Complex EM visit Add On G2211 Diagnoses Uncontrolled type 2 diabetes mellitus with hyperglycemia E11.65 Glycemic state: with hyperglycemia Time Spent (min) 60 Comment Time spent reviewing labs/previous provider notes, face to face, chart documentation
[2023-12-16 09:11] LABS: Glucose, Whole Blood 195 mg/dL (60-115)
== END 2023-12-16 09:30 | disposition home or self-care (01) ==
PROVIDERS: PCP Family Medicine; Visit Provider Nurse Practitioner Adult Health
DX: Z13.9 Encounter for screening, unspecified (principal); E11.65 Type 2 diabetes mellitus with hyperglycemia
CPT/HCPCS: 99215; G2211; G2212

== ENCOUNTER → 2023-12-16 08:56 | Outpatient (BNVA) | payer OTHER, SELFPAY | PROVIDERS: PCP Family Medicine; Visit Provider Nurse Practitioner Adult Health | DX: E11.65 Type 2 diabetes mellitus with hyperglycemia (principal); E11.42 Type 2 diabetes mellitus with diabetic polyneuropathy; E11.21 Type 2 diabetes mellitus with diabetic nephropathy; E66.01 Morbid (severe) obesity due to excess calories; Z68.33 Body mass index [BMI] 33.0-33.9, adult; Z79.4 Long term (current) use of insulin; Z91.119 Patient's noncompliance with dietary regimen due to unspecified reason | CPT/HCPCS: 82947; 83036; 99212 ==

== ENCOUNTER 2023-12-30 09:16 | Outpatient (AMB) | payer OTHER, SELFPAY ==
--- NOTE | 2023-12-30 09:32 | A.OFFVIS_ITS ---
Vital Signs 12/30/23 09:35 Height 5 ft 3 in Weight 185 lb 3.013 oz BMI 32.8 BP 124/68 Blood Pressure Location Rt brachial Position Sitting Pulse 65 Pulse Source Pulse Oximeter Intake Visit Reasons: Type 2 DM-lvm Intake Note: Patient presents today for a follow-up on Type 2 Diabetes Mellitus: Last Diabetic Eye exam: 09/2023 Last Podiatry Exam: Does not see a Permit Specialist Most recent HbA1c: 8.9%, 12/16/2023 Random Glucose- 236 mg/dL, Today Warehouse Insulation Worker Required: Yes Warehouse Insulation Worker Language: Soda Drier Feeder Services: Warehouse Insulation Worker Present Warehouse Insulation Worker Name: ANATOLY Oneill/[facility] Information Interpreted: non-clinical & clinical Accompanied by: BRAKE OPERATOR SHEET METAL Allergies JERMAINE Inhibitors [JERMAINE INHIBITORS] Adverse Reaction (Intermediate, Verified 12/30/23 09:34) COUGH lactose [LACTOSE] Adverse Reaction (Intermediate, Verified 12/30/23 09:34) GI DISCOMFORT HPI Comments Details: Patient is 78-year-old female with DM type 2 diagnosed 1995 who presents for management of diabetes. , Past medical history: DM2, bipolar disorder, schizophrenia, hypertension, hyperlipidemia, GERD, allergic rhinitis. Left breast cancer, s/p surgery, endometrial and ovarian cancer s/p total hysterectomy Micro and macrovascular complications: nephropathy, neuropathy, A1C is 8.9% on 12/15. At her last office visit she was changed to Tresiba. Diabetes medications: Tresiba 65 units units Humalog 35 units Ac Metformin 750mg BID She was recently started on freestyle Carola 2. average glucose: [197] Time in range: 18 % very high (above 250) Thirty-eight % high (181-250) Forty-one % in range (70-180] 3 % low (69-55) 0 % very low (below 54) Symptoms reported: +numbness, + tingling, no cramping in lower extremities Hypoglycemia: denies Marketing Support Coordinator - CDE education: recently Permit Specialist: none recently Dental exam: goes every 6 month Ophthalmology evaluation: Last appt November Has f/u with Dr. Barclay @[facility] [place] 01/11 Diet high in conc sweets [facility] Medical History Acute stroke due to ischemia Abdominal bloating Elevated TSH Preoperative clearance Bilateral leg pain Urticaria Obesity (BMI 30-39.9) Diabetic nephropathy associated with type 2 diabetes mellitus Nausea and vomiting Microalbuminuria due to type 2 diabetes mellitus Paroxysmal atrial fibrillation Slurred speech History of endometrial cancer Depression Iron deficiency anemia History of left breast cancer Hypothyroidism Schizophrenia [facility] (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 Absence of acromegalic features. Neck exam reveals nl size thyroid about 15 gms. No thyroid nodules palpable. No tenderness. Heart S1 S2, Reg R/R. No M/R G. Skin exam reveals absence of vitiligo or acanthosis nigricans. General: cooperative Nutritional Appearance: overweight Orientation/consciousness: oriented to person Neck Neck: Yes normal visual inspection, Yes full ROM and Yes no lymphadenopathy Thyroid: Thyroid normal Resp Effort & Inspection: normal respiratory effort Cardio Rate: regular rate Rhythm: regular rhythm Heart sounds: S1 normal heart sound present and S2 normal heart sound present Neuro General: oriented to person Quality Reporting (2019) Adult ([facility] [address] 138/2//69) Smoking risk assessment performed?: Yes Patient Tobacco Use Status: Never used Tobacco Results Reviewed Results Reviewed: Laboratory Last Values Glucose (Clinic) 236 mg/dL (60-115) H 12/30/23 09:38 Assessment & Plan Assessment & Plan (1) Diabetes type 2, uncontrolled: Code(s): E11.65 - Type 2 diabetes mellitus with hyperglycemia Category: Medical Qualifiers: Glycemic state: with hyperglycemia Qualified Code(s): E11.65 - Type 2 diabetes mellitus with hyperglycemia Plan: 78-year-old type 2 diabetic with nephropathy with blood sugar average in the last 2 weeks of 198 down from October average of 245. Will continue current dosing of insulin and metformin, advised to follow balanced meal plan. She has upcoming appt with Dr. Barclay on 01/11. I have asked her to have blood work done and can consider addition of an SGLT-2 inhibitor. Will consult with neph after labs are done. Orders: Orders Microalbumin, Random (w Creat) Today E11.29 - Type 2 diabetes mellitus with other diabetic kidney complication, R80.9 - Proteinuria, unspecified Creatinine Urine Today E11.29 - Type 2 diabetes mellitus with other diabetic kidney complication, R80.9 - Proteinuria, unspecified Lipid Panel Today E11.29 - Type 2 diabetes mellitus with other diabetic kidney complication, R80.9 - Proteinuria, unspecified Coding Level of Care Code Est Pt Level 4 (56017) Complex EM visit Add On G2211 Diagnoses Uncontrolled type 2 diabetes mellitus with hyperglycemia E11.65 Glycemic state: with hyperglycemia Time Spent (min) 30 Comment Time spent reviewing labs/previous provider notes, face to face, chart documentation
[2023-12-30 09:35] VITALS: BP 124/68; PULSE 65; BMI 32.8
[2023-12-30 09:45] LABS: Glucose, Whole Blood 236 mg/dL (60-115)
== END 2023-12-30 09:58 | disposition home or self-care (01) ==
PROVIDERS: PCP Family Medicine; Visit Provider Nurse Practitioner Adult Health
DX: E11.65 Type 2 diabetes mellitus with hyperglycemia (principal)
CPT/HCPCS: 99214; G2211

== ENCOUNTER → 2023-12-30 09:16 | Outpatient (BNVA) | payer OTHER, SELFPAY | PROVIDERS: PCP Family Medicine; Visit Provider Nurse Practitioner Adult Health | DX: E11.65 Type 2 diabetes mellitus with hyperglycemia (principal); E11.29 Type 2 diabetes mellitus with other diabetic kidney complication; R80.9 Proteinuria, unspecified | CPT/HCPCS: 82947; 99212 ==

== ENCOUNTER 2024-01-05 09:08 | Outpatient (REF) | payer OTHER, SELFPAY ==
[2024-01-05 11:18] LABS: MANUAL DIFF FLAG NO
[2024-01-05 11:28] LABS: Basophils Percent Auto 0.4 % (0-2); Eosinophils Absolute Auto 0.2 X10*3/uL (0.0-0.4); Eosinophils Percent Auto 1.8 % (0-4); Hematocrit 34.9 % (37.0-47.0); Hemoglobin 11.6 g/dl (12.0-16.0); Imm Gran Abs Auto 0.02 X10*3/uL (0.00-0.03); Imm Gran Pct Auto 0.2 % (0.0-0.4); Lymphocytes Absolute Auto 2.2 X10*3/uL (1.2-4.9); Lymphocytes Percent Auto 26.4 % (20-40); Mean Corpuscular HGB Conc 33.2 g/dl (31.0-35.0); Mean Corpuscular Hemoglobin 27.6 pg (27.0-33.0); Mean Corpuscular Volume 83.1 fL (80.0-98.0); Mean Platelet Volume 11.2 fL (9.4-12.3); Monocytes Absolute Auto 0.4 X10*3/uL (0.1-1.2); Monocytes Percent Auto 4.4 % (2-11); Neutrophils Absolute Auto 5.6 x10*3/uL (2.0-8.3); Neutrophils Percent Auto 66.8 % (45-73); Platelet Count 285 X10*3/uL (160-400); Red Cell Distribution Width 13.2 % (11.0-16.0); White Blood Count 8.4 X10*3/uL (4.8-10.8)
[2024-01-05 11:59] LABS: Parathyroid Hormone Intact 74.7 pg/mL (8.7-77.1)
[2024-01-05 12:02] LABS: Alanine Aminotransferase 13 U/L (0-31); Albumin Level 3.7 g/dL (3.5-5.0); Alkaline Phosphatase 75 U/L (39-117); Anion Gap 14 (12-20); Aspartate Amino Transferase 12 U/L (5-31); Bilirubin Total 0.2 mg/dL (0.0-1.0); Blood Urea Nitrogen 33 mg/dL (9-16); Calcium 9.8 mg/dL (8.4-10.2); Carbon Dioxide 19 mmol/L (22-29); Chloride 114 mmol/L (96-108); Cholesterol 128 mg/dL (<200); Estimated Glomerular Filt Rate 33; Glucose Fasting 218 mg/dL (60-99); Glucose Random 218 mg/dL (60-115); HDL Cholesterol 24 mg/dL (>40); Iron 73 mcg/dL (30-160); LDL Cholesterol Calculated 59 mg/dL (<100); Percent Iron Saturation 29 % (15-50); Potassium 4.5 mmol/L (3.3-5.1); Sodium 142 mmol/L (135-145); Total Iron Binding Capacity 252 mcg/dL (228-428); Total Protein 7.6 g/dL (6.5-8.0); Triglycerides 228 mg/dL (<150); Unsaturated Iron Binding 179 ug/dL
[2024-01-05 12:04] LABS: Creatinine Urine 124.54 mg/dL; Vitamin D 25-OH Total 37.5 ng/mL (>30)
[2024-01-05 12:30] LABS: Microalbum/Creatinine Ratio Ur 1167.4 ug/mg cr (<30)
== END 2024-01-05 09:09 | disposition home or self-care (01) ==
LOC: HO.HHCL 09:08
PROVIDERS: Internal Medicine Hypertension Specialist; Nurse Practitioner Adult Health; Visit Provider Internal Medicine
DX: D64.9 Anemia, unspecified (principal); Z79.4 Long term (current) use of insulin; E78.5 Hyperlipidemia, unspecified; E55.9 Vitamin D deficiency, unspecified; N17.9 Acute kidney failure, unspecified; N18.30 Chronic kidney disease, stage 3 unspecified; E11.29 Type 2 diabetes mellitus with other diabetic kidney complication; R80.9 Proteinuria, unspecified
CPT/HCPCS: 36415; 80048; 80053; 80061; 82043; 82306; 82570; 83540; 83970; 85025; 85027

== ENCOUNTER 2024-01-12 10:50 | Outpatient (AMB) | payer OTHER, SELFPAY ==
--- NOTE | 2024-01-12 10:51 | HO.NEPHOV_ITS ---
Vital Signs 01/12/24 10:52 Height 5 ft 3 in Weight 184 lb BMI 32.6 BP 118/54 L Blood Pressure Location Rt brachial Position Sitting Pulse 61 Pulse Source Pulse Oximeter Pulse Oximetry (%) 97 Oxygen Delivery Method Room Air Intake Visit Reasons: CKD/ Conf Slot Machine Floor Person Required: Yes Slot Machine Floor Person Name: Jovon [id number] Accompanied by: Self / Same As Patient Allergies JERMAINE Inhibitors [JERMAINE INHIBITORS] Adverse Reaction (Intermediate, Verified 01/12/24 10:53) COUGH lactose [LACTOSE] Adverse Reaction (Intermediate, Verified 01/12/24 10:53) GI DISCOMFORT HPI Comments Details: 77-year-old woman with a history of obesity and diabetes mellitus with its chron ic kidney disease has been referred for evaluation of CKD. She has had high attention and diabetes medicines 1996. Upon reviewing the labs it appears that the blood sugars have been suboptimally controlled with a hemoglobin A1c of around 10%. She was also found to have significant proteinuria. She is on a maximum dose of valsartan of 320 mg. Baseline serum creatinine is between 1.11.2 mg/dL. In April the serum creatinine was 1.35 and 1.49 mg/dL. And hence this referral 11/08/23: Overall doing OK. Accompanied by daughter c/o abdominla distention - always and she keeps spitting frequently. No vomiting Slot Machine Floor Person service was used 01/12/24 c/o cough and vomiting [facility] Medical History Acute stroke due to ischemia Abdominal bloating Elevated TSH Preoperative clearance Bilateral leg pain Urticaria Obesity (BMI 30-39.9) Diabetic nephropathy associated with type 2 diabetes mellitus Nausea and vomiting Microalbuminuria due to type 2 diabetes mellitus Paroxysmal atrial fibrillation Slurred speech History of endometrial cancer Depression Iron deficiency anemia History of left breast cancer Hypothyroidism Schizophrenia retirement (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 Patient Tobacco Use Status: Never used Tobacco e-Cigarette/Vaping Use: Never Used Second Hand Smoke Exposure: No service: No Current occupational status: disabled Cognitive needs: Yes Hearing needs: No Vision needs: Yes Physical Exam Vital Signs: Last Vital Signs Pulse 61 01/12/24 10:52 BP 118/54 L 01/12/24 10:52 Pulse Ox 97 01/12/24 10:52 Oxygen Delivery Method Room Air 01/12/24 10:52 BMI result Body Mass Index 32.6 Const General: ill appearing Neck Neck: Yes supple Resp Auscultation: clear to auscultation bilaterally Cardio Palpation: no palpable S3 Heart sounds: no rubs GI Palpation (GI): Soft to palpation Auscultation: normal bowel sounds Neuro Motor exam (neuro): no asterixis Results Reviewed Nephrology Results: Hgb 11.6 g/dl (12.0-16.0) L 01/05/24 WBC 8.4 X10*3/uL (4.8-10.8) 01/05/24 Plt Count 285 X10*3/uL (160-400) 01/05/24 Sodium 142 mmol/L (135-145) 01/05/24 Potassium 4.5 mmol/L (3.3-5.1) 01/05/24 Chloride 114 mmol/L (96-108) H 01/05/24 Carbon Dioxide 19 mmol/L (22-29) L 01/05/24 BUN 33 mg/dL (9-16) H 01/05/24 Creatinine 1.53 mg/dL (0.5-1.4) H 01/05/24 Calcium 9.8 mg/dL (8.4-10.2) 01/05/24 PTH Intact 74.7 pg/mL (8.7-77.1) 01/05/24 Urine Protein 30 (1+) mg/dL (Neg-Trace) H 11/12/23 Urine Creatinine 124.54 mg/dL 01/05/24 Renal US 11/16/23 Assessment & Plan Assessment & Plan (1) Hypertension: Code(s): I10 - Essential (primary) hypertension Category: Medical Qualifiers: Hypertension type: essential hypertension Qualified Code(s): I10 - Essential (primary) hypertension Plan: Goal is to maintain blood pressure less than 130/80. Discussed weight loss. She should stay on low-sodium diet. Continue with current antihypertensive regimen. (2) CKD (chronic kidney disease) stage 3, GFR 30-59 ml/min: Code(s): N18.30 - Chronic kidney disease, stage 3 unspecified Category: Medical Plan: CKD 3 with about 1 g of proteinuria in setting of longstanding diabetes mellitus. She probably has underlying diabetic nephropathy. There could be a component of CASS. Differential diagnosis would include hypoperfusion. She had a CT scan back in October which did not reveal any significant obstruction. 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 Discussed importance of tight control of blood sugar and maintain hemoglobin A1c less than 7%. Agree with maximizing ARB. She will benefit from the addition of SGLT 2 inhibitor. Renal ultrasonogram unremarkable in October 2023 Advised to go to ER due to vomiting and cough Coding Level of Care Code Est Pt Level 4 (46160) Diagnoses Essential hypertension I10 Hypertension type: essential hypertension CKD (chronic kidney disease) stage 3, GFR 30-59 ml/min N18.30
[2024-01-12 10:52] VITALS: BP 118/54; PULSE 61; O2SAT 97; BMI 32.6
== END 2024-01-12 11:13 | disposition home or self-care (01) ==
PROVIDERS: PCP Family Medicine; Visit Provider Internal Medicine Hypertension Specialist
DX: I10 Essential (primary) hypertension (principal); N18.30 Chronic kidney disease, stage 3 unspecified
CPT/HCPCS: 99214

== ENCOUNTER → 2024-01-12 10:50 | Outpatient (BNVA) | payer OTHER, SELFPAY | PROVIDERS: PCP Family Medicine; Visit Provider Internal Medicine Hypertension Specialist | DX: Z13.89 Encounter for screening for other disorder (principal) | CPT/HCPCS: 99212 ==

== ENCOUNTER 2024-01-12 11:49 | Emergency (ER) | payer OTHER, SELFPAY ==
--- NOTE | ~2024-01-12 | XR_ITS ---
EXAMINATION: XR CHEST CLINICAL INFORMATION: Cough. COMPARISON: Chest radiograph 11/12/2023. TECHNIQUE: 2 views of the chest were obtained. FINDINGS: Stable prominence of the cardiomediastinal silhouette. Slightly increased diffuse interstitial markings compared to most recent prior. No focal consolidation. No pleural effusion or pneumothorax. Surgical clips overlying the left breast. Thoracic spondylosis. No acute osseous findings. XR/XR chest 2V IMPRESSION: Slightly increased interstitial markings since most recent prior raising the possibility of an infectious/inflammatory process of the small airways. No focal consolidation. Electronically signed by: Paradise Alexander MD 01/12/2024 01:34 PM EDT
--- NOTE | ~2024-01-12 | CT_ITS ---
EXAMINATION: CT ABDOMEN AND PELVIS WITH CONTRAST CLINICAL INFORMATION: Epi abd pain. COMPARISON: No pertinent prior studies are available for comparison. TECHNIQUE: Multidetector volumetric imaging was performed from the lung bases to the pubic symphysis following the administration of: Oral contrast: No Intravenous contrast: 85 mL Omnipaque 350 No contrast reaction reported Sagittal and coronal reformatted images were obtained on the technologist workstation. Total exam dose-length product 684 mGy-cm FINDINGS: VISUALIZED CHEST: Visualized lung bases and mediastinum are normal. No pleural effusion. LIVER, GALLBLADDER AND BILIARY TREE: Suspect mild hepatic steatosis. No focal liver mass. No biliary ductal dilatation. Gallbladder is unremarkable. PANCREAS: No discrete pancreatic mass. No pancreatic ductal dilatation. SPLEEN: Normal size. No focal lesion. ADRENAL GLANDS: Normal; no mass. KIDNEYS AND URETERS: The kidneys are normal in size, shape, and attenuation. No hydronephrosis, hydroureter, or calculi. GASTROINTESTINAL TRACT: Simple cyst from the lower pole the left kidney. No imaging follow-up is recommended. Symmetric nephrograms. No nephrolithiasis or hydronephrosis. ABDOMINAL WALL: No hernia seen. LYMPHOVASCULAR STRUCTURES: No aortic aneurysm. Mild aortoiliac atherosclerosis. BLADDER: Partially decompressed and not well evaluated. No discrete mass. PELVIC VISCERA: Hysterectomy. OSSEOUS STRUCTURES: Degenerative changes in the spine. Degenerative changes in the spine. CT/CT abdomen pelvis w IV con IMPRESSION: No acute findings correlate with epigastric abdominal pain. Electronically signed by: Blanco Jenkins MD 01/12/2024 04:19 PM EDT
[2024-01-12 11:55] VITALS: BP 141/65; PULSE 60; RESP 18; TEMP 36.6; O2SAT 99; BMI 32.7
--- NOTE | 2024-01-12 11:56 | ED.ABDPAIN ---
HPI - Abdominal Pain General Chief Complaint: Abdominal Pain Stated Complaint: fall Time Seen by Provider: 01/12/24 13:13 History of Present Illness ED Provider: Dr. Flores HPI narrative: 78 y/o F patient; PMH dementia, paroxysmal atrial fibrillation, GERD, gastroparesis, dyspepsia, hypothyroidism, HTN, T2DM; presents on recommendation of kidney physician Dr. Barclay for abdominal pain for one week. Described as upper epigastric abdominal pain that is associated with nausea and spitting up . Associated with food aversion due to symptoms worsening with food. Denies: diarrhea, fever or chills, SOB, cough/congestion. No known sick contacts. Related Data Home Medications ?Medication ?Instructions ?Recorded ?Confirmed pen needle, diabetic 32 gauge x #50 ea 04/09/20 11/08/23 amlodipine 10 mg tablet 10 mg PO QAM 11/12/23 11/12/23 memantine 5 mg tablet 5 mg PO BID 11/12/23 11/12/23 famotidine 20 mg tablet 20 mg PO DAILY 12/30/23 Previous Rx's ?Medication ?Instructions ?Recorded compr.stocking,knee,long,large #12 ea 10/16/20 diabetic shoes with 3 inserts #3 ea 12/31/20 blood-glucose meter (FreeStyle #1 ea 12/11/21 Precision En Meter) lancets 33 gauge (TRUEplus Lancets) ##100 11/22/22 flash glucose scanning reader #1 ea 12/06/22 (FreeStyle Carola 2 Filer) cane #1 ea 12/15/22 pen needle, diabetic 32 gauge x #200 ea 03/01/23 (UltiCare Pen Needle) cholecalciferol (vitamin D3) 25 25 mcg PO DAILY #30 caps 03/25/23 mcg (1,000 unit) capsule (Vitamin D3) magnesium oxide 250 mg PO BID #180 tabs 04/03/23 valsartan 320 mg tablet 320 mg PO DAILY #90 tabs 04/03/23 metoclopramide HCl 5 mg tablet 5 mg PO TID #90 tabs 06/23/23 ferrous sulfate 325 mg (65 mg 325 mg PO DAILY 90 days #90 tabs 07/04/23 iron) tablet linaclotide 72 mcg capsule 72 mcg PO QAM #30 caps 07/14/23 (Linzess) simethicone 180 mg capsule 180 mg PO TID #90 caps 07/14/23 metoprolol succinate 100 mg 100 mg PO QAM #90 tabs 09/02/23 tablet,extended release 24 hr atorvastatin 80 mg tablet 80 mg PO BEDTIME #30 tabs 09/25/23 apixaban 5 mg tablet (Eliquis) 5 mg PO BID #180 tabs 10/10/23 flash glucose sensor (FreeStyle #2 kits 10/13/23 Carola 2 Sensor kit) insulin lispro 100 unit/mL 35 unit (0.35 mL) subcut TID 30 10/13/23 subcutaneous pen (Humalog KwPen days #31.5 mL (U-100) Insulin) blood sugar diagnostic (FreeStyle #100 strips 10/18/23 Precision En Strips) lancets 33 gauge (TRUEplus Lancets) #100 ea 11/18/23 insulin degludec 200 unit/mL (3 65 unit (0.325 mL) subcut DAILY 12/16/23 mL) subcutaneous pen (Tresiba #12 mL FlexTouch U-200 insulin) tamoxifen 20 mg tablet 20 mg PO BEDTIME 30 days #30 tabs 01/12/24 Allergies Allergy/AdvReac Type Severity Reaction Status Date / Time JERMAINE Inhibitors AdvReac Intermediate COUGH Verified 01/12/24 11:57 [JERMAINE INHIBITORS] lactose [LACTOSE] AdvReac Intermediate GI Verified 01/12/24 11:57 DISCOMFORT Review of Systems Review of Systems Yes all other systems are reviewed and are negative Denies Sensory deficit (Neuro) [facility] Past Medical History Attestation statement: The following information was validated with the patient. Source: old records reviewed Medical History CKD (chronic kidney disease) stage 3, GFR 30-59 ml/min Acute stroke due to ischemia Abdominal bloating Elevated TSH Preoperative clearance Bilateral leg pain Urticaria Obesity (BMI 30-39.9) Diabetic nephropathy associated with type 2 diabetes mellitus Nausea and vomiting Microalbuminuria due to type 2 diabetes mellitus Paroxysmal atrial fibrillation Slurred speech History of endometrial cancer Depression Iron deficiency anemia History of left breast cancer Hypothyroidism Schizophrenia [facility]PC (current) use of insulin Hypertension Dyslipidemia Diabetic polyneuropathy associated with type 2 diabetes mellitus Diabetes type 2, uncontrolled Surgical History History of tooth extraction Hx of eye surgery Hx of breast surgery Hx of total hysterectomy Family History Family History Father No problems noted. 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 Patient Tobacco Use Status: Never used Tobacco e-Cigarette/Vaping Use: Never Used Second Hand Smoke Exposure: No Advance Directives: No Advance Directives Information Provided: No service: No Current occupational status: disabled Cognitive needs: Yes Hearing needs: No Vision needs: Yes Physical Exam ED Vital Signs: Vital Signs - 24 hr 01/12/24 11:55 01/12/24 14:00 Temperature 97.8 F 97.1 F Pulse Rate 60 63 Respiratory Rate 18 18 Blood Pressure 141/65 H 148/68 H Pulse Oximetry 99 98 Oxygen Delivery Method Room Air Room Air BMI result Body Mass Index 32.7 Patient is afebrile and hemodynamically stable. Const General: cooperative Orientation/consciousness: patient oriented x3 HENMT Head: Yes normal to inspection and Yes atraumatic Eyes General: appearance normal, both eyes and all related structures Pupils: Equal, round and reactive pupils present EOM: EOMs intact bilaterally Neck Neck: Yes normal visual inspection, Yes full ROM, Yes supple and No tender Chest Chest palpation & inspection: normal inspection of the chest and normal palpation of entire chest wall Resp Effort & Inspection: normal respiratory effort, able to speak in complete sentences, no cough and no respiratory distress Auscultation: clear to auscultation bilaterally Cardio Rate: regular rate Rhythm: regular rhythm Peripheral pulses: Peripheral pulses 2+ throughout GI Other: Mild epigastric abdominal tenderness Inspection: No Abdominal wall edema and No distended Palpation (GI): Soft to palpation, not firm, Tenderness to palpation present (GI), no guarding and not rigid Auscultation: normal bowel sounds Back/Spine/Pelvis Back: No back tenderness Neuro General: patient oriented x3 Cranial nerves: Yes Equal, round and reactive pupils present Motor exam (neuro): 5/5 motor strength present throughout Sensory Exam: No Sensory deficit (Neuro) Course Course Course Narrative: This is a Rapid Medical Examination (RME) performed by Shannon Scott PA-C in triage. Full HPI, ROS, assessment and treatment plan per primary provider in the Main ED. 78 yo croatian speaking female hx of obesity, T2DM, diabetic polyneuropathy, stage 3 CKD, iron deficiency anemia, HTN, HDL, ischemic stroke, hypothyroidism, schizophrenia, here with daughter for eval of epigatric abd pain, N/V, and cough x1 week. abd pain worse after eating. denies diarrhea. She was at Dr. Barclay's office this morning, advised to come to ED for further eval. PE: obese abd, soft, mildly ttp of epigastric region. no rebound or guarding. Plan: labs, ua, cxr Reevaluation(s) Reevaluation #1: Patient is afebrile and hemodynamically stable. Reviewed triage work up. Added CT Abdomen/Pelvis w IV Contrast. Labs reviewed. No significant leukocytosis. Mildly elevated Cr 1.36, but appears to be around patient's baseline. Covid/flu/rsv negative. Troponin unremarkable. CXR notable for possible viral pneumonia. CT Abdomen/Pelvis unremarkable. Patient is resting comfortably without tachypnea, tachycardia, or hypoxia. Likely symptoms 2/2 to recent viral illness. Patient's daughter is at bedside, discussed findings. She feels comfortable with plan for discharge to home and PCP follow up. Plan: Discharge to home with PCP follow up Return precautions given Medical Decision Making Lab Data 01/12/24 12:25 01/12/24 12:25 Labs: Lab Results 01/12/24 Range/Units 12:25 WBC 9.7 (4.8-10.8) X10*3/uL RBC 4.29 (4.20-5.50) X10*6/uL Hgb 11.9 L (12.0-16.0) g/dl Hct 35.8 L (37.0-47.0) % MCV 83.4 (80.0-98.0) fL MCH 27.7 (27.0-33.0) pg MCHC 33.2 (31.0-35.0) g/dl RDW 13.3 (11.0-16.0) % Plt Count 257 (160-400) X10*3/uL MPV 10.5 (9.4-12.3) fL Immature Gran % (Auto) 0.2 (0.0-0.4) % Neut % (Auto) 65.9 (45-73) % Lymph % (Auto) 25.1 (20-40) % Kings % (Auto) 6.3 (2-11) % Eos % (Auto) 2.1 (0-4) % Baso % (Auto) 0.4 (0-2) % Lymph # (Auto) 2.4 (1.2-4.9) X10*3/uL Kings # (Auto) 0.6 (0.1-1.2) X10*3/uL Eos # (Auto) 0.2 (0.0-0.4) X10*3/uL Baso # (Auto) 0.0 (0.0-0.2) X10*3/uL Abs Immat Gran (auto) 0.02 (0.00-0.03) X10*3/uL Absolute Neuts (auto) 6.4 (2.0-8.3) x10*3/uL Absolute Nucleated RBC 0.000 (0.0-0.012) X10*3/uL Nucleated RBC % (auto) 0.0 (0.0-0.2) /100WBC Sodium 141 (135-145) mmol/L Potassium 4.9 (3.3-5.1) mmol/L Chloride 117 H (96-108) mmol/L Carbon Dioxide 15 L (22-29) mmol/L Anion Gap 14 (12-20) BUN 35 H (9-16) mg/dL Creatinine 1.36 (0.5-1.4) mg/dL Estim Creat Clear Calc 34.9 Estimated GFR 38 Random Glucose 165 H (60-115) mg/dL Calcium 10.2 (8.4-10.2) mg/dL Magnesium 2.2 (1.6-2.6) mg/dL Total Bilirubin 0.3 (0.0-1.0) mg/dL AST 15 (5-31) U/L ALT 14 (0-31) U/L Alkaline Phosphatase 79 (39-117) U/L Troponin I High Sens 3.3 (<3.5-17.0) ng/L Total Protein 8.0 (6.5-8.0) g/dL Albumin 3.7 (3.5-5.0) g/dL Lipase 50 (8-78) U/L Influenza Type A (PCR) NEGATIVE (Negative) Influenza Type B (PCR) NEGATIVE (Negative) RSV RNA Qual (PCR) NEGATIVE (Negative) SARS-CoV-2 RNA (RT-PCR) NEGATIVE (Negative) Radiology Impression Discussion of test interpretation with radiology: I have reviewed the radiologist's reading. Radiologist Impression: EXAMINATION: XR CHEST CLINICAL INFORMATION: Cough. COMPARISON: Chest radiograph 11/12/2023. TECHNIQUE: 2 views of the chest were obtained. FINDINGS: Stable prominence of the cardiomediastinal silhouette. Slightly increased diffuse interstitial markings compared to most recent prior. No focal consolidation. No pleural effusion or pneumothorax. Surgical clips overlying the left breast. Thoracic spondylosis. No acute osseous findings. XR/XR chest 2V IMPRESSION: Slightly increased interstitial markings since most recent prior raising the possibility of an infectious/inflammatory process of the small airways. No focal consolidation. Electronically signed by: Paradise Alexander MD 01/12/2024 01:34 PM EDT RP EXAMINATION: CT ABDOMEN AND PELVIS WITH CONTRAST CLINICAL INFORMATION: Epi abd pain. COMPARISON: No pertinent prior studies are available for comparison. TECHNIQUE: Multidetector volumetric imaging was performed from the lung bases to the pubic symphysis following the administration of: Oral contrast: No Intravenous contrast: 85 mL Omnipaque 350 No contrast reaction reported Sagittal and coronal reformatted images were obtained on the technologist workstation. Total exam dose-length product 684 mGy-cm FINDINGS: VISUALIZED CHEST: Visualized lung bases and mediastinum are normal. No pleural effusion. LIVER, GALLBLADDER AND BILIARY TREE: Suspect mild hepatic steatosis. No focal liver mass. No biliary ductal dilatation. Gallbladder is unremarkable. PANCREAS: No discrete pancreatic mass. No pancreatic ductal dilatation. SPLEEN: Normal size. No focal lesion. ADRENAL GLANDS: Normal; no mass. KIDNEYS AND URETERS: The kidneys are normal in size, shape, and attenuation. No hydronephrosis, hydroureter, or calculi. GASTROINTESTINAL TRACT: Simple cyst from the lower pole the left kidney. No imaging follow-up is recommended. Symmetric nephrograms. No nephrolithiasis or hydronephrosis. ABDOMINAL WALL: No hernia seen. LYMPHOVASCULAR STRUCTURES: No aortic aneurysm. Mild aortoiliac atherosclerosis. BLADDER: Partially decompressed and not well evaluated. No discrete mass. PELVIC VISCERA: Hysterectomy. OSSEOUS STRUCTURES: Degenerative changes in the spine. Degenerative changes in the spine. CT/CT abdomen pelvis w IV con IMPRESSION: No acute findings correlate with epigastric abdominal pain. Electronically signed by: Blanco Jenkins MD 01/12/2024 04:19 PM EDT Medications Administered Discontinued Medications Generic Name Dose Route Start Last Admin Trade Name Freq PRN Reason Stop Dose Admin Iohexol 100 ml 01/12/24 14:19 01/12/24 14:20 Iohexol 350 Mg/Ml 100 Ml Infus..Btl IV 01/12/24 14:20 85 ml ONCE ONE Administration Discharge Plan Discharge Clinical Impression: Abdominal pain Patient Disposition: Home, Self-Care Instructions: Viral Pneumonia (DC), Abdominal Pain (ED) Additional Instructions: As we discussed, you were seen today for abdominal pain. Your labs were reassuring. Your CT Abdomen/Pelvis was reassuring. Your CXR showed a possible viral pneumonia. This will improve with rest over the next few days. This is probably the cause of your cough and upper abdominal pain. Please follow up with your PCP within 1 - 2 days to discuss your recent emergency department visit. Return immediately to the emergency department for: Difficulty breathing Chest pain Worsening abdominal pain Passing out Prescriptions: No Action (DME) diabetic shoes with 3 inserts 8 See Rx Instructions .Route .MEDSUPPLY Qty: 3 0RF Rx Instructions: As directed (DME) blood-glucose meter [FreeStyle Precision En Meter] Mis See Rx Instructions .Route Qty: 1 0RF Rx Instructions: Tests 4 X/day (DME) lancets [TRUEplus Lancets] 33 gauge misc See Rx Instructions .ROUTE .COMPLEX Qty: 100 4RF Dose Instruction: TEST BLOOD SUGAR FOUR TIMES DAILY Rx Instructions: TEST BLOOD SUGAR FOUR TIMES DAILY (DME) FreeStyle Carola 2 Filer Misc See Rx Instructions .Route Qty: 1 0RF Rx Instructions: As directed (DME) pen needle, diabetic [UltiCare Pen Needle] 32 gauge x /32 needle See Rx Instructions .ROUTE .COMPLEX Qty: 200 4RF Dose Instruction: USE THREE TIMES DAILY Rx Instructions: USE THREE TIMES DAILY cholecalciferol (vitamin D3) [Vitamin D3] 25 mcg (1,000 unit) capsule 25 mcg PO DAILY Qty: 30 11RF magnesium oxide 250 mg magnesium tablet 250 mg PO BID Qty: 180 2RF valsartan 320 mg tablet 320 mg PO DAILY Qty: 90 2RF metoclopramide HCl 5 mg tablet 5 mg PO TID Qty: 90 6RF ferrous sulfate 325 mg (65 mg iron) tablet 325 mg PO DAILY 90 Days Qty: 90 3RF metoprolol succinate 100 mg tablet extended release 24 hr 100 mg PO QAM Qty: 90 3RF atorvastatin 80 mg tablet 80 mg PO BEDTIME Qty: 30 11RF Eliquis 5 mg tablet 5 mg PO BID Qty: 180 1RF (DME) FreeStyle Precision En Strips Strip See Rx Instructions .ROUTE .COMPLEX Qty: 100 4RF Dose Instruction: TEST BLOOD SUGAR FOUR TIMES DAILY Rx Instructions: TEST BLOOD SUGAR FOUR TIMES DAILY (DME) lancets [TRUEplus Lancets] 33 gauge misc See Rx Instructions .ROUTE .COMPLEX Qty: 100 4RF Dose Instruction: TEST BLOOD SUGAR FOUR TIMES DAILY Rx Instructions: TEST BLOOD SUGAR FOUR TIMES DAILY tamoxifen 20 mg tablet 20 mg PO BEDTIME 30 Days Qty: 30 6RF amlodipine 10 mg tablet 10 mg PO QAM memantine 5 mg tablet 5 mg PO BID (DME) cane Device See Rx Instructions .Route Qty: 1 0RF Rx Instructions: As directed (DME) compr.stocking,knee,long,large Misc See Rx Instructions .ROUTE .MEDSUPPLY Qty: 12 0RF Rx Instructions: As directed (DME) pen needle, diabetic 32 gauge x 5/32 needle See Rx Instructions subcut .MEDSUPPLY Qty: 50 Rx Instructions: As directed Linzess 72 mcg capsule 72 mcg PO QAM Qty: 30 6RF simethicone 180 mg capsule 180 mg PO TID Qty: 90 3RF famotidine 20 mg tablet 20 mg PO DAILY insulin lispro [Humalog KwikPen Insulin] 100 unit/mL insulin pen 35 unit subcut TID 30 Days Qty: 31.5 11RF Rx Instructions: Hold dinner humalog if sugar less than 200. (DME) FreeStyle Carola 2 Sensor Kit See Rx Instructions .ROUTE .COMPLEX Qty: 2 5RF Dose Instruction: USE DIRECTED CHANGE EVERY 14 DAYS Rx Instructions: USE DIRECTED CHANGE EVERY 14 DAYS insulin degludec [Tresiba FlexTouch U-200] 200 unit/mL (3 mL) insulin pen 65 unit subcut DAILY Qty: 12 11RF Print Language: Turkmen
[2024-01-12 12:31] LABS: MANUAL DIFF FLAG NO
[2024-01-12 12:34] LABS: Basophils Percent Auto 0.4 % (0-2); Eosinophils Absolute Auto 0.2 X10*3/uL (0.0-0.4); Eosinophils Percent Auto 2.1 % (0-4); Hematocrit 35.8 % (37.0-47.0); Hemoglobin 11.9 g/dl (12.0-16.0); Imm Gran Abs Auto 0.02 X10*3/uL (0.00-0.03); Imm Gran Pct Auto 0.2 % (0.0-0.4); Lymphocytes Absolute Auto 2.4 X10*3/uL (1.2-4.9); Lymphocytes Percent Auto 25.1 % (20-40); Mean Corpuscular HGB Conc 33.2 g/dl (31.0-35.0); Mean Corpuscular Hemoglobin 27.7 pg (27.0-33.0); Mean Corpuscular Volume 83.4 fL (80.0-98.0); Mean Platelet Volume 10.5 fL (9.4-12.3); Monocytes Absolute Auto 0.6 X10*3/uL (0.1-1.2); Monocytes Percent Auto 6.3 % (2-11); Neutrophils Absolute Auto 6.4 x10*3/uL (2.0-8.3); Neutrophils Percent Auto 65.9 % (45-73); Platelet Count 257 X10*3/uL (160-400); Red Blood Count 4.29 X10*6/uL (4.20-5.50); Red Cell Distribution Width 13.3 % (11.0-16.0); White Blood Count 9.7 X10*3/uL (4.8-10.8)
[2024-01-12 12:46] LABS: Alanine Aminotransferase 14 U/L (0-31); Albumin Level 3.7 g/dL (3.5-5.0); Alkaline Phosphatase 79 U/L (39-117); Anion Gap 14 (12-20); Aspartate Amino Transferase 15 U/L (5-31); Bilirubin Total 0.3 mg/dL (0.0-1.0); Blood Urea Nitrogen 35 mg/dL (9-16); Calcium 10.2 mg/dL (8.4-10.2); Carbon Dioxide 15 mmol/L (22-29); Chloride 117 mmol/L (96-108); Creatinine Clr Calc Pharmacy 34.9; Estimated Glomerular Filt Rate 38; Glucose Random 165 mg/dL (60-115); Lipase 50 U/L (8-78); Magnesium 2.2 mg/dL (1.6-2.6); Potassium 4.9 mmol/L (3.3-5.1); Sodium 141 mmol/L (135-145)
[2024-01-12 13:12] LABS: Influenza A PCR NEGATIVE (Negative); Influenza B PCR NEGATIVE (Negative); Resp Syncy Virus RNA Qual PCR NEGATIVE (Negative); SARS COV2 PCR INHOUSE NEGATIVE (Negative)
--- NOTE | 2024-01-12 13:35 | PC.NURSE ---
This RN, Mark MCFARLAND and translator Valiente at bedside. This RN inserted an IV for CT scan- 20G to LAC. Tolerated well. Good blood return.
[2024-01-12 14:00] VITALS: BP 148/68; PULSE 63; RESP 18; TEMP 36.2; O2SAT 98
[2024-01-12 14:16] LABS: Troponin-I High Sensitivity 3.3 ng/L (<3.5-17.0)
[2024-01-12] MEDS: iohexoL 350 MG/ML 100 ML INFUS..BTL IV (14:20)
--- NOTE | 2024-01-12 15:37 | PC.NURSE ---
Pt. awaiting CT scan results
[2024-01-12 16:44] VITALS: BP 148/68; PULSE 63; RESP 18; TEMP 36.2; O2SAT 98
== END 2024-01-12 16:44 | disposition home or self-care (01) ==
PROVIDERS: Physician Assistant Medical; Emergency Provider Emergency Medicine
DX: R10.9 Unspecified abdominal pain (principal); Z03.818 Encounter for observation for suspected exposure to other biological agents ruled out; E11.9 Type 2 diabetes mellitus without complications; I10 Essential (primary) hypertension; E78.5 Hyperlipidemia, unspecified; I48.0 Paroxysmal atrial fibrillation; Z79.4 Long term (current) use of insulin; Z79.899 Other long term (current) drug therapy; Z79.01 Long term (current) use of anticoagulants
CPT/HCPCS: 0241U; 36415; 71046; 74177; 80053; 83690; 83735; 84484; 85025; 99212; 99283; 99284; Q9967

== ENCOUNTER 2024-01-16 10:22 | Outpatient (AMB) | payer OTHER, SELFPAY ==
--- NOTE | 2024-01-16 10:55 | MHC.AMDMED ---
Intake Intake Visit Reasons: Type 2 DM-conf Certified Massage Therapist Required: Yes Certified Massage Therapist Language: Circulator Name: Pt's TRACK LAMINATING MACHINE TENDER Accompanied by: Other Relationship Allergies JERMAINE Inhibitors [JERMAINE INHIBITORS] Adverse Reaction (Intermediate, Verified 01/12/24 11:57) COUGH lactose [LACTOSE] Adverse Reaction (Intermediate, Verified 01/12/24 11:57) GI DISCOMFORT HPI Comprehensive Diabetes Asmnt Most Recent Diabetes Results: Microalb/Creat Ratio 1167.4 ug/mg cr (<30) H 01/05/24 Cholesterol 128 mg/dL (<200) 01/05/24 HDL Cholesterol 24 mg/dL (>40) L 01/05/24 Triglycerides 228 mg/dL (<150) H 01/05/24 Creatinine 1.36 mg/dL (0.5-1.4) 01/12/24 Blood Urea Nitrogen 35 mg/dL (9-16) H 01/12/24 Sodium 141 mmol/L (135-145) 01/12/24 Potassium 4.9 mmol/L (3.3-5.1) 01/12/24 Chloride 117 mmol/L (96-108) H 01/12/24 Carbon Dioxide 15 mmol/L (22-29) L 01/12/24 Calcium 10.2 mg/dL (8.4-10.2) 01/12/24 AST 15 U/L (5-31) 01/12/24 ALT 14 U/L (0-31) 01/12/24 Total Protein 8.0 g/dL (6.5-8.0) 01/12/24 Albumin 3.7 g/dL (3.5-5.0) 01/12/24 [facility] Medical History CKD (chronic kidney disease) stage 3, GFR 30-59 ml/min Acute stroke due to ischemia Abdominal bloating Elevated TSH Preoperative clearance Bilateral leg pain Urticaria Obesity (BMI 30-39.9) Diabetic nephropathy associated with type 2 diabetes mellitus Nausea and vomiting Microalbuminuria due to type 2 diabetes mellitus Paroxysmal atrial fibrillation Slurred speech History of endometrial cancer Depression Iron deficiency anemia History of left breast cancer Hypothyroidism Schizophrenia 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 Mother Diabetes mellitus Heart disease Social History Household Members: None Household Members Other:: Kajal Menendez [phone] Housing: Apartment Do you presently have visiting nurse or other home services: Yes Alcohol intake: never Comment: constant log roper Patient Tobacco Use Status: Never used Tobacco e-Cigarette/Vaping Use: Never Used Second Hand Smoke Exposure: No service: No Current occupational status: disabled Cognitive needs: Yes Hearing needs: No Vision needs: Yes Assessment & Plan Assessment & Plan (1) Microalbuminuria due to type 2 diabetes mellitus: Code(s): E11.29 - Type 2 diabetes mellitus with other diabetic kidney complication; R80.9 - Proteinuria, unspecified Plan: Personal Continuous Glucose Monitor: Patients CGM information reviewed Patient has extremely limited data on glucose report, TRACK LAMINATING MACHINE TENDER reports that when she returned from vacation the Carola CGM was not function, TRACK LAMINATING MACHINE TENDER changed out Carola 2 sensor, but it continues not to work Recommended to patient's TRACK LAMINATING MACHINE TENDER switch out sensor again, if reader is still not functioning contact special education paraeducator, even when patient has working CGM the police captain that are in charge of testing patient's glucose levels are not scanning sensor frequently enough If we need to replace CGM I would recommend using either Carola 3 or Dexcom G7 Reviewed how to interpret trend arrows Reminded patient that to check finger sticks if symptoms do not match sensor reading. Discussed lag time between finger stick and sensor data.? Patient able to insert sensor independently at home without issue.? Portions of this note were created using voice recognition software, please excuse any words or phrases that may have been misinterpreted. Patient Instructions: Patient and TRACK LAMINATING MACHINE TENDER will follow-up with special education paraeducator in 1 month Coding Level of Care Code Est Pt Level 1 (91016) Diagnoses Microalbuminuria due to type 2 diabetes mellitus E11.29; R80.9
== END 2024-01-16 10:58 | disposition home or self-care (01) ==
PROVIDERS: PCP Family Medicine; Visit Provider Registered Nurse Diabetes Educator
DX: E11.29 Type 2 diabetes mellitus with other diabetic kidney complication (principal); R80.9 Proteinuria, unspecified

== ENCOUNTER → 2024-01-16 10:22 | Outpatient (BNVA) | payer OTHER, SELFPAY | PROVIDERS: PCP Family Medicine; Visit Provider Registered Nurse Diabetes Educator | DX: E11.29 Type 2 diabetes mellitus with other diabetic kidney complication (principal); R80.9 Proteinuria, unspecified | CPT/HCPCS: 99211 ==

== ENCOUNTER 2024-01-31 09:42 | Outpatient (AMB) | payer OTHER, SELFPAY ==
--- NOTE | 2024-01-31 11:00 | A.OFFVIS_ITS ---
Intake Intake Visit Reasons: T2DM/hypoglycemic events Service Order Dispatcher Chief Required: Yes Service Order Dispatcher Chief Name: Padilla [id number] Accompanied by: Other Relationship Allergies JERMAINE Inhibitors [JERMAINE INHIBITORS] Adverse Reaction (Intermediate, Verified 01/12/24 11:57) COUGH lactose [LACTOSE] Adverse Reaction (Intermediate, Verified 01/12/24 11:57) GI DISCOMFORT HPI Comprehensive Diabetes Asmnt Most Recent Diabetes Results: Microalb/Creat Ratio 1167.4 ug/mg cr (<30) H 01/05/24 Cholesterol 128 mg/dL (<200) 01/05/24 HDL Cholesterol 24 mg/dL (>40) L 01/05/24 Triglycerides 228 mg/dL (<150) H 01/05/24 Creatinine 1.36 mg/dL (0.5-1.4) 01/12/24 Blood Urea Nitrogen 35 mg/dL (9-16) H 01/12/24 Sodium 141 mmol/L (135-145) 01/12/24 Potassium 4.9 mmol/L (3.3-5.1) 01/12/24 Chloride 117 mmol/L (96-108) H 01/12/24 Carbon Dioxide 15 mmol/L (22-29) L 01/12/24 Calcium 10.2 mg/dL (8.4-10.2) 01/12/24 AST 15 U/L (5-31) 01/12/24 ALT 14 U/L (0-31) 01/12/24 Total Protein 8.0 g/dL (6.5-8.0) 01/12/24 Albumin 3.7 g/dL (3.5-5.0) 01/12/24 [facility] Medical History CKD (chronic kidney disease) stage 3, GFR 30-59 ml/min Acute stroke due to ischemia Abdominal bloating Elevated TSH Preoperative clearance Bilateral leg pain Urticaria Obesity (BMI 30-39.9) Diabetic nephropathy associated with type 2 diabetes mellitus Nausea and vomiting Microalbuminuria due to type 2 diabetes mellitus Paroxysmal atrial fibrillation Slurred speech History of endometrial cancer Depression Iron deficiency anemia History of left breast cancer Hypothyroidism Schizophrenia group home (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 6% Hyperglycemia:? 52% Time in Range:? 42% Average glucose for the last 2 weeks? 183 mg/dL Patient has history of dementia and CVA, patient at visit with FISH INSPECTOR senior technical recruiter responsible for giving patient's her medications. FISH INSPECTOR reported that patient frequently refuses to eat at mealtimes, then at other times especially overnight will get up to eat. Patient is currently taking Tresiba 65 units daily Humalog 35 units before meals Patient has 2 episodes of prolonged hypoglycemia overnight. Discussed with FISH INSPECTOR timing of Humalog doses, FISH INSPECTOR reports that if patient's glucose is under 100 mg/dL before evening meal she will not give Humalog 35 units. If patient's blood sugar is elevated at bedtime FISH INSPECTOR has been giving Humalog 35 units, to bring high glucose levels down. Discussed with FISH INSPECTOR that this may lead patient to have hypoglycemia if she is getting full Humalog dose, and not eating. Patient's FISH INSPECTOR expressed feeling overwhelmed, sometimes she will give mealtime insulin and then patient will refuse to eat. This also puts patient at risk for hypoglycemia. Six adjusted to patient's FISH INSPECTOR that she move Humalog dose to right after patient's meal, to make sure that patient is actually eaten some carbohydrates and will need the mealtime insulin to help correct high blood sugar. Reviewed with patient's FISH INSPECTOR how to treat hypoglycemia with rule of 15s, Patient able to insert sensor independently at home without issue.? Portions of this note were created using voice recognition software, please excuse any words or phrases that may have been misinterpreted. Patient Instructions: Patient will follow-up with tobacco prevention health educator in 2 weeks, to check to see if hypoglycemia has resolved Coding Level of Care Code Est Pt Level 1 (93223) Diagnoses Microalbuminuria due to type 2 diabetes mellitus E11.29; R80.9
== END 2024-01-31 11:03 | disposition home or self-care (01) ==
PROVIDERS: PCP Family Medicine; Visit Provider Registered Nurse Diabetes Educator
DX: E11.29 Type 2 diabetes mellitus with other diabetic kidney complication (principal); R80.9 Proteinuria, unspecified

== ENCOUNTER → 2024-01-31 09:42 | Outpatient (BNVA) | payer OTHER, SELFPAY | PROVIDERS: PCP Family Medicine; Visit Provider Registered Nurse Diabetes Educator | DX: E11.29 Type 2 diabetes mellitus with other diabetic kidney complication (principal); R80.9 Proteinuria, unspecified | CPT/HCPCS: 99211 ==

== ENCOUNTER 2024-02-29 09:12 | Outpatient (AMB) | payer OTHER, SELFPAY ==
--- NOTE | 2024-02-29 09:18 | A.OFFVIS_ITS ---
Vital Signs 02/29/24 09:19 Height 5 ft 3 in Weight 182 lb 15.739 oz BMI 32.4 BP 106/68 Blood Pressure Location Rt brachial Position Sitting Pulse 65 Pulse Source Pulse Oximeter Intake Visit Reasons: T2DM/CONFIRMED Intake Note: Patient presents today for a follow-up on Type 2 Diabetes Mellitus: Last Diabetic Eye exam: 09/2023 Last Podiatry Exam: Does not see a Inspector Assembly Most recent HbA1c: 8.9%, 12/16/2023 Random Glucose- 244 mg/dL, Today Chain Hooker Required: Yes Chain Hooker Language: Sternman Services: Chain Hooker Present Chain Hooker Name: [facility] [place]Tyree Information Interpreted: non-clinical & clinical Accompanied by: Daughter Allergies JERMAINE Inhibitors [JERMAINE INHIBITORS] Adverse Reaction (Intermediate, Verified 02/29/24 09:57) COUGH lactose [LACTOSE] Adverse Reaction (Intermediate, Verified 02/29/24 09:57) GI DISCOMFORT HPI Comments Details: Patient is a 78-year-old female with DM type 2 diagnosed 1995 who presents for management of diabetes. , Past medical history: DM2, bipolar disorder, schizophrenia, hypertension, hyperlipidemia, GERD, allergic rhinitis. Left breast cancer, s/p surgery, endometrial and ovarian cancer s/p total hysterectomy Micro and macrovascular complications: nephropathy, neuropathy, A1C is 8.9% on 12/15. Several months ago she was changed to Tresiba. Diabetes medications: Tresiba 65 units units Humalog 35 units Ac Metformin 750mg BID GLucometer average 221 one low mild testing 2-3 times per day has fs 2 did not bring in reader and had prob with sensor. Symptoms reported: +numbness, + tingling, no cramping in lower extremities Hypoglycemia: denies Toll Relief Operator - CDE education: recently Inspector Assembly: none recently Dental exam: goes every 6 month Ophthalmology evaluation: Last appt November Had f/u with Dr. Barclay @[facility] [place] 01/11 Recommended sglt-2 inhibitor Diet high in conc sweets [facility] Medical History CKD (chronic kidney disease) stage 3, GFR 30-59 ml/min Acute stroke due to ischemia Abdominal bloating Elevated TSH Preoperative clearance Bilateral leg pain Urticaria Obesity (BMI 30-39.9) Diabetic nephropathy associated with type 2 diabetes mellitus Nausea and vomiting Microalbuminuria due to type 2 diabetes mellitus Paroxysmal atrial fibrillation Slurred speech History of endometrial cancer Depression Iron deficiency anemia History of left breast cancer Hypothyroidism 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 Absence of acromegalic features. Neck exam reveals nl size thyroid about 15 gms. No thyroid nodules palpable. Heart S1 S2, Reg R/R. No M/R G. Skin exam reveals absence of vitiligo or acanthosis nigricans. No edema Quality Reporting (2019) Adult ([facility] 138/2/) Smoking risk assessment performed?: Yes Patient Tobacco Use Status: Never used Tobacco Results Reviewed Results Reviewed: Laboratory Last Values Glucose (Clinic) 244 mg/dL (60-115) H 02/29/24 09:25 Assessment & Plan Assessment & Plan (1) Diabetes type 2, uncontrolled: Code(s): E11.65 - Type 2 diabetes mellitus with hyperglycemia Category: Medical Qualifiers: Glycemic state: with hyperglycemia Qualified Code(s): E11.65 - Type 2 diabetes mellitus with hyperglycemia Plan: 78 year old diabetic with nephropathy followed by nephrology with a glucose avg in the 220s. In consultation with her information systems operator we will start her on an SGLT2 inhibitor. The patient does not speak Bengali. I reviewed extensively with the daughter the potential side effects of SGLT2 inhibitors in particular observe for any signs of a UTI burning frequency or change in mental status, The patient was advised to make the following changes in medication: Vaginal infe ction or skin infection in the perineum. She was advised to monitor her mother's fluid intake to keep herself hydrated. I have asked her to have blood work done in 4 weeks' time after starting the medication. The patient/daughter had an opportunity to ask questions regarding treatment plan. The patient expressed understanding and agreement with the above treatment plan. The patient/daughter is aware they should contact our office by phone for worsening glucose readings or for any low blood sugars which may warrant a change in diabetes medication. Compliance is encouraged with any medications and followup testing that is ordered Orders: Orders Basic Metabolic Panel 4 Weeks E11.42 - Type 2 diabetes mellitus with diabetic polyneuropathy Medications: New empagliflozin (Jardiance) 10 mg PO DAILY 30 days 30 tabs 11RF Patient Instructions: The patient was counseled to achieve a target A1C of 7% (154 avg). Fasting blood sugars should be 90-130 in the morning and less than 180 two hours after meals. Reviewed the relationship between poor diabetic control and the development of complications. The patient was counseled to always carry a source of sugar and on the rule of 15's: Take 3 glucose tablets and repeat again in 15 minutes if blood sugar is not in normal range. Continue to repeat every 15 minutes until blood sugar is normal. Side effects of SGLT-2 inhibitors were reviewed with the patient: UTI, fungal infection, bacterial infection in the perineum, light headed feeling like you may pass out, low blood sugar, dehydration, allergic reaction-skin rash, itching, hives, rare dka, change in renal function.. Patient was advised to contact PCP or go to urgent care for any infection. More serious reaction go to ER and stop medication, Notify Endo if medication is stopped or the patient is in need of adjustment of medication, Coding Level of Care Code Est Pt Level 4 (82087) Complex EM visit Add On G2211 Diagnoses Uncontrolled type 2 diabetes mellitus with hyperglycemia E11.65 Glycemic state: with hyperglycemia
[2024-02-29 09:19] VITALS: BP 106/68; PULSE 65; BMI 32.4
[2024-02-29 09:29] LABS: Glucose, Whole Blood 244 mg/dL (60-115)
== END 2024-02-29 10:21 | disposition home or self-care (01) ==
PROVIDERS: PCP Family Medicine; Visit Provider Nurse Practitioner Adult Health
DX: E11.65 Type 2 diabetes mellitus with hyperglycemia (principal)
CPT/HCPCS: 99214; G2211

== ENCOUNTER → 2024-02-29 09:12 | Outpatient (BNVA) | payer OTHER, SELFPAY | PROVIDERS: PCP Family Medicine; Visit Provider Nurse Practitioner Adult Health | DX: E11.65 Type 2 diabetes mellitus with hyperglycemia (principal); E11.21 Type 2 diabetes mellitus with diabetic nephropathy; E11.42 Type 2 diabetes mellitus with diabetic polyneuropathy; E11.29 Type 2 diabetes mellitus with other diabetic kidney complication; R80.9 Proteinuria, unspecified; Z79.4 Long term (current) use of insulin | CPT/HCPCS: 82947; 99211; 99212 ==

== ENCOUNTER 2024-02-29 10:27 | Outpatient (AMB) | payer OTHER, SELFPAY ==
--- NOTE | 2024-02-29 10:15 | MHC.AMDMED ---
Intake Intake Visit Reasons: 60 min CGM check Bander And Cellophaner Helper Machine Required: Yes Bander And Cellophaner Helper Machine Language: Building Supervisor Name: Tyree [facility] Accompanied by: Other Relationship Allergies JERMAINE Inhibitors [JERMAINE INHIBITORS] Adverse Reaction (Intermediate, Verified 02/29/24 09:57) COUGH lactose [LACTOSE] Adverse Reaction (Intermediate, Verified 02/29/24 09:57) GI DISCOMFORT HPI Comprehensive Diabetes Asmnt Most Recent Diabetes Results: Microalb/Creat Ratio 1167.4 ug/mg cr (<30) H 01/05/24 Cholesterol 128 mg/dL (<200) 01/05/24 HDL Cholesterol 24 mg/dL (>40) L 01/05/24 Triglycerides 228 mg/dL (<150) H 01/05/24 Creatinine 1.36 mg/dL (0.5-1.4) 01/12/24 Blood Urea Nitrogen 35 mg/dL (9-16) H 01/12/24 Sodium 141 mmol/L (135-145) 01/12/24 Potassium 4.9 mmol/L (3.3-5.1) 01/12/24 Chloride 117 mmol/L (96-108) H 01/12/24 Carbon Dioxide 15 mmol/L (22-29) L 01/12/24 Calcium 10.2 mg/dL (8.4-10.2) 01/12/24 AST 15 U/L (5-31) 01/12/24 ALT 14 U/L (0-31) 01/12/24 Total Protein 8.0 g/dL (6.5-8.0) 01/12/24 Albumin 3.7 g/dL (3.5-5.0) 01/12/24 [facility] Medical History CKD (chronic kidney disease) stage 3, GFR 30-59 ml/min Acute stroke due to ischemia Abdominal bloating Elevated TSH Preoperative clearance Bilateral leg pain Urticaria Obesity (BMI 30-39.9) Diabetic nephropathy associated with type 2 diabetes mellitus Nausea and vomiting Microalbuminuria due to type 2 diabetes mellitus Paroxysmal atrial fibrillation Slurred speech History of endometrial cancer Depression Iron deficiency anemia History of left breast cancer Hypothyroidism 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 ESCAPEMENT MATCHER started Jardiance 10 mg daily Patient reports blood sugars below: Date Breakfast/Fasting Pre-Lunch Pre-Supper Bedtime Notes 02/28 227 02/27 204 192 221 217 02/26 179 229/57 Instructed ELECTRICAL/INSTRUMENT TECHNICIAN to retake BG 15 min after treating low BG 02/25 225 151 228 206 02/24 208 253 02/23 213 333 02/22 279 256 228 265 Patient did not have working sensor at today's visit, there was 1 episode of hypoglycemia on meter. Patient given sample Carola 2 sensor, patient's ELECTRICAL/INSTRUMENT TECHNICIAN reports patient was having less hypoglycemia now that she is administering Humalog before meals Patient instructed to follow-up with diabetic educator in 1 month to review for hypoglycemia events with sensor Plan/Goal: Patient will treat hypoglycemia with rule of 15s, instructed ELECTRICAL/INSTRUMENT TECHNICIAN to always recheck glucose 15 minutes after treating low BG to verify that BG is within normal range. If BG is still below 80 mg/dL treat again for hypoglycemia Portions of this note were created using voice recognition software, please excuse any words or phrases that may have been misinterpreted. Coding Level of Care Code Est Pt Level 1 (36439) Diagnoses Microalbuminuria due to type 2 diabetes mellitus E11.29; R80.9
== END 2024-02-29 10:28 | disposition home or self-care (01) ==
LOC: HO.ENCR 10:27
PROVIDERS: PCP Family Medicine; Visit Provider Registered Nurse Diabetes Educator
DX: E11.29 Type 2 diabetes mellitus with other diabetic kidney complication (principal); R80.9 Proteinuria, unspecified

== ENCOUNTER 2024-03-22 11:07 | Outpatient (REF) | payer OTHER, SELFPAY ==
[2024-03-22 13:25] LABS: MANUAL DIFF FLAG NO
[2024-03-22 13:44] LABS: Basophils Percent Auto 0.5 % (0-2); Eosinophils Absolute Auto 0.2 X10*3/uL (0.0-0.4); Eosinophils Percent Auto 2.1 % (0-4); Hematocrit 35.3 % (37.0-47.0); Hemoglobin 11.7 g/dl (12.0-16.0); Imm Gran Abs Auto 0.07 X10*3/uL (0.00-0.03); Imm Gran Pct Auto 0.9 % (0.0-0.4); Lymphocytes Absolute Auto 1.9 X10*3/uL (1.2-4.9); Mean Corpuscular HGB Conc 33.1 g/dl (31.0-35.0); Mean Corpuscular Hemoglobin 27.6 pg (27.0-33.0); Mean Corpuscular Volume 83.3 fL (80.0-98.0); Mean Platelet Volume 11.4 fL (9.4-12.3); Monocytes Absolute Auto 0.5 X10*3/uL (0.1-1.2); Monocytes Percent Auto 5.9 % (2-11); Neutrophils Absolute Auto 5.1 x10*3/uL (2.0-8.3); Neutrophils Percent Auto 65.6 % (45-73); Platelet Count 262 X10*3/uL (160-400); Red Blood Count 4.24 X10*6/uL (4.20-5.50); Red Cell Distribution Width 13.1 % (11.0-16.0); White Blood Count 7.8 X10*3/uL (4.8-10.8)
[2024-03-22 14:03] LABS: Cholesterol 138 mg/dL (<200); HDL Cholesterol 26 mg/dL (>40); LDL Cholesterol Calculated 73 mg/dL (<100); Triglycerides 199 mg/dL (<150)
[2024-03-22 14:32] LABS: Creatinine Urine 97.69 mg/dL; Microalbum/Creatinine Ratio Ur 429.9 ug/mg cr (<30)
[2024-03-22 14:45] LABS: Folate 15.9 ng/mL (> or = 4.0); Vitamin B12 857 pg/mL (200-900)
[2024-03-22 14:47] LABS: Reflex LDLD? No
== END 2024-03-22 11:08 | disposition home or self-care (01) ==
LOC: HO.HHCL 11:07
PROVIDERS: Visit Provider Family Medicine
DX: N18.32 Chronic kidney disease, stage 3b (principal); D63.1 Anemia in chronic kidney disease; Z79.4 Long term (current) use of insulin; E11.65 Type 2 diabetes mellitus with hyperglycemia
CPT/HCPCS: 36415; 80061; 82043; 82570; 82607; 82746; 85025

== ENCOUNTER 2024-03-29 09:53 | Outpatient (AMB) | payer OTHER, SELFPAY ==
--- NOTE | 2024-03-29 10:56 | A.OFFVIS_ITS ---
Intake Intake Visit Reasons: [id number] Project Development Engineer Required: Yes Project Development Engineer Language: Doughnut Batter Mixer Name: Chapis [id number] Information Interpreted: non-clinical & clinical Accompanied by: Other Relationship Allergies JERMAINE Inhibitors [JERMAINE INHIBITORS] Adverse Reaction (Intermediate, Verified 02/29/24 09:57) COUGH lactose [LACTOSE] Adverse Reaction (Intermediate, Verified 02/29/24 09:57) GI DISCOMFORT HPI Comprehensive Diabetes Asmnt Most Recent Diabetes Results: Microalb/Creat Ratio 429.9 ug/mg cr (<30) H 03/22/24 Cholesterol 138 mg/dL (<200) 03/22/24 HDL Cholesterol 26 mg/dL (>40) L 03/22/24 Triglycerides 199 mg/dL (<150) H 03/22/24 Creatinine 1.36 mg/dL (0.5-1.4) 01/12/24 Blood Urea Nitrogen 35 mg/dL (9-16) H 01/12/24 Sodium 141 mmol/L (135-145) 01/12/24 Potassium 4.9 mmol/L (3.3-5.1) 01/12/24 Chloride 117 mmol/L (96-108) H 01/12/24 Carbon Dioxide 15 mmol/L (22-29) L 01/12/24 Calcium 10.2 mg/dL (8.4-10.2) 01/12/24 AST 15 U/L (5-31) 01/12/24 ALT 14 U/L (0-31) 01/12/24 Total Protein 8.0 g/dL (6.5-8.0) 01/12/24 Albumin 3.7 g/dL (3.5-5.0) 01/12/24 [facility] Medical History CKD (chronic kidney disease) stage 3, GFR 30-59 ml/min Acute stroke due to ischemia Abdominal bloating Elevated TSH Preoperative clearance Bilateral leg pain Urticaria Obesity (BMI 30-39.9) Diabetic nephropathy associated with type 2 diabetes mellitus Nausea and vomiting Microalbuminuria due to type 2 diabetes mellitus Paroxysmal atrial fibrillation Slurred speech History of endometrial cancer Depression Iron deficiency anemia History of left breast cancer Hypothyroidism 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 Patient Tobacco Use Status: Never used Tobacco e-Cigarette/Vaping Use: Never Used Second Hand Smoke Exposure: No service: No Current occupational status: disabled Cognitive needs: Yes Hearing needs: No Vision needs: Yes Assessment & Plan Assessment & Plan (1) Diabetes type 2, uncontrolled: Code(s): E11.65 - Type 2 diabetes mellitus with hyperglycemia Qualifiers: Glycemic state: with hyperglycemia Qualified Code(s): E11.65 - Type 2 diabetes mellitus with hyperglycemia Plan: Personal Continuous Glucose Monitor: Patients CGM information reviewed, Pt uses [employer] 2 Sensor data: Hypoglycemia: ? 0% Hyperglycemia:? 33% Time in Range:? 67% Average glucose for the last 2 weeks? 202 mg/dL Patient's ANIMAL RIDES MANAGER reports that patient's hypoglycemia has resolved. Patient and ANIMAL RIDES MANAGER are currently preparing to go to a trip to [place]. Instructed ANIMAL RIDES MANAGER to make sure she carries treatment for hypoglycemia, do not pack medications in luggage use take in carry on. Patient has questions or concerns contact hospital educator Patient ANIMAL RIDES MANAGER able to insert sensor independently at home without issue.? Portions of this note were created using voice recognition software, please excuse any words or phrases that may have been misinterpreted. Patient Instructions: Patient is ANIMAL RIDES MANAGER will contact hospital educator with questions or concerns Patient's ANIMAL RIDES MANAGER will set up follow-up appointment when they return from [place] Coding Level of Care Code Est Pt Level 1 (08808) Diagnoses Uncontrolled type 2 diabetes mellitus with hyperglycemia E11.65 Glycemic state: with hyperglycemia
== END 2024-03-29 11:36 | disposition home or self-care (01) ==
LOC: HO.ENCR 09:54
PROVIDERS: PCP Family Medicine; Visit Provider Registered Nurse Diabetes Educator
DX: E11.65 Type 2 diabetes mellitus with hyperglycemia (principal)

== ENCOUNTER → 2024-03-29 09:53 | Outpatient (BNVA) | payer OTHER, SELFPAY | PROVIDERS: PCP Family Medicine; Visit Provider Registered Nurse Diabetes Educator | DX: E11.65 Type 2 diabetes mellitus with hyperglycemia (principal) | CPT/HCPCS: 99211 ==

== ENCOUNTER → 2024-05-21 10:28 | Outpatient (BNV) | payer OTHER, SELFPAY | PROVIDERS: PCP Family Medicine; Visit Provider Internal Medicine Medical Oncology | DX: C50.912 Malignant neoplasm of unspecified site of left female breast (principal) | CPT/HCPCS: 99204 ==

== ENCOUNTER 2024-05-31 10:14 | Outpatient (AMB) | payer OTHER, SELFPAY ==
--- NOTE | 2024-05-31 10:32 | A.OFFVIS_ITS ---
Vital Signs 05/31/24 10:35 Height 5 ft 3 in Weight 180 lb 12.465 oz BMI 32.0 BP 134/74 Blood Pressure Location Rt brachial Position Sitting Pulse 75 Pulse Source Pulse Oximeter Intake Visit Reasons: T2DM Intake Note: Patient presents today for a follow-up on Type 2 Diabetes Mellitus: Last Diabetic Eye exam: 09/2023 Last Podiatry Exam: Does not see a Export Coordinator Most recent HbA1c: 8.8%, 05/31/2024 Random Glucose- 204 mg/dL, Today Toxics Program Officer Required: Yes Toxics Program Officer Language: Radio Communications Mechanician Services: Toxics Program Officer Present Toxics Program Officer [facility] Information Interpreted: non-clinical & clinical Accompanied by: Daughter Allergies JERMAINE Inhibitors [JERMAINE INHIBITORS] Adverse Reaction (Intermediate, Verified 05/31/24 10:41) COUGH lactose [LACTOSE] Adverse Reaction (Intermediate, Verified 05/31/24 10:41) GI DISCOMFORT HPI Comments Details: Patient is a 78-year-old female with DM type 2 diagnosed 1995 who presents for management of diabetes. , Past medical history: DM2, bipolar disorder, schizophrenia, hypertension, hyperlipidemia, GERD, allergic rhinitis. Left breast cancer, s/p surgery, endometrial and ovarian cancer s/p total hysterectomy Micro and macrovascular complications: nephropathy, neuropathy, A1C is 8.9% on 12/15. Several months ago she was changed to Tresiba. Diabetes medications: Tresiba 65 units units Humalog 35 units Ac Metformin 750mg BID Jardiance 10mg GLucometer average 221 one low mild testing 2-3 times per day has fs 2 did not bring in reader and had prob with sensor. Symptoms reported: +numbness, + tingling, no cramping in lower extremities Hypoglycemia: denies County Adviser - CDE education: recently Export Coordinator: none recently Dental exam: goes every 6 month Ophthalmology evaluation: Last appt November Had f/u with Dr. Barclay @[facility] 01/11 Recommended sglt-2 inhibitor Diet high in conc sweets PFSH Medical History CKD (chronic kidney disease) stage 3, GFR 30-59 ml/min Acute stroke due to ischemia Abdominal bloating Elevated TSH Preoperative clearance Bilateral leg pain Urticaria Obesity (BMI 30-39.9) Diabetic nephropathy associated with type 2 diabetes mellitus Nausea and vomiting Microalbuminuria due to type 2 diabetes mellitus Paroxysmal atrial fibrillation Slurred speech History of endometrial cancer Depression Iron deficiency anemia History of left breast cancer Hypothyroidism Schizophrenia jail (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 Patient Tobacco Use Status: Never used Tobacco e-Cigarette/Vaping Use: Never Used Second Hand Smoke Exposure: No service: No Current occupational status: disabled Cognitive needs: Yes Hearing needs: No Vision needs: Yes Physical Exam Vital Signs: Last Vital Signs Pulse 75 05/31/24 10:35 BP 134/74 05/31/24 10:35 BMI result Body Mass Index 32.0 Results AMB Hemoglobin A1c AMB Hemoglobin A1c 8.8 % Last Edit by ANATOLY Oneill on 05/31/24 10:55 Quality Reporting (2019) Adult ([facility] 138/2/) Smoking risk assessment performed?: Yes Patient Tobacco Use Status: Never used Tobacco Results Reviewed Results Reviewed: Laboratory Last Values Glucose (Clinic) 204 mg/dL (60-115) H 05/31/24 10:45 Hgb A1c (Clinic) 8.8 % (4.0-6.0) H 05/31/24 10:49 Assessment & Plan Assessment & Plan Orders: Orders AMB Hemoglobin A1c Today E11.65 - Type 2 diabetes mellitus with hyperglycemia Coding
[2024-05-31 10:35] VITALS: BP 134/74; PULSE 75; BMI 32.0
[2024-05-31 10:51] LABS: Glucose, Whole Blood 204 mg/dL (60-115)
== END 2024-05-31 11:12 | disposition home or self-care (01) ==
PROVIDERS: PCP Family Medicine; Visit Provider Nurse Practitioner Adult Health
DX: E11.65 Type 2 diabetes mellitus with hyperglycemia (principal)

== ENCOUNTER → 2024-05-31 10:14 | Outpatient (BNVA) | payer OTHER, SELFPAY | PROVIDERS: PCP Family Medicine; Visit Provider Nurse Practitioner Adult Health | DX: E11.65 Type 2 diabetes mellitus with hyperglycemia (principal) | CPT/HCPCS: 82947; 83036; 99212 ==

== ENCOUNTER 2024-06-15 09:58 | Outpatient (AMB) | payer OTHER, SELFPAY ==
[2024-06-15 10:07] VITALS: BP 132/62; PULSE 65; O2SAT 97; BMI 32.1
--- NOTE | 2024-06-15 10:07 | HO.NEPHOV_ITS ---
Vital Signs 06/15/24 10:07 Height 5 ft 3 in Weight 181 lb BMI 32.1 BP 132/62 Blood Pressure Location Rt brachial Position Sitting Pulse 65 Pulse Source Pulse Oximeter Pulse Oximetry (%) 97 Oxygen Delivery Method Room Air Intake Visit Reasons: Trevon follow up Didactic Instructor Required: Yes Didactic Instructor Name: [id number] Kiet Accompanied by: Self / Same As Patient Allergies JERMAINE Inhibitors [JERMAINE INHIBITORS] Adverse Reaction (Intermediate, Verified 06/15/24 10:13) COUGH lactose [LACTOSE] Adverse Reaction (Intermediate, Verified 06/15/24 10:13) GI DISCOMFORT Medication List - Last Reconciled 06/15/24 by Bronson Barclay MD amlodipine 10 mg PO QAM apixaban (Eliquis) 5 mg PO BID atorvastatin 80 mg PO BEDTIME blood sugar diagnostic (FreeStyle Precision En Strips) TEST BLOOD SUGAR FOUR TIMES DAILY blood-glucose meter (FreeStyle Precision En Meter) Tests 4 X/day cane As directed cholecalciferol (vitamin D3) (Vitamin D3) 25 mcg PO DAILY compr.stocking,knee,long,large As directed [diabetic shoes with 3 inserts As directed] empagliflozin (Jardiance) 10 mg PO DAILY 30 days famotidine 20 mg PO DAILY ferrous sulfate 325 mg PO DAILY 90 days flash glucose scanning reader (FreeStyle Carola 2 Jackson) As directed flash glucose sensor (FreeStyle Carola 2 Sensor kit) USE DIRECTED TO TEST BLOOD SUGAR CHANGE EVERY 14 DAYS insulin degludec (Tresiba FlexTouch U-200 insulin) 65 units (0.325 mL) subcut DAILY insulin lispro (Humalog KwikPen (U-100) Insulin) 35 units (0.35 mL) subcut TID 30 days lancets (TRUEplus Lancets) TEST BLOOD SUGAR FOUR TIMES DAILY lancets (TRUEplus Lancets) TEST BLOOD SUGAR FOUR TIMES DAILY linaclotide (Linzess) 72 mcg PO QAM magnesium oxide 250 mg PO BID memantine 5 mg PO BID metoclopramide HCl 5 mg PO TID metoprolol succinate ER 100 mg PO QAM pen needle, diabetic As directed pen needle, diabetic (UltiCare Pen Needle) USE THREE TIMES DAILY simethicone 180 mg PO TID tamoxifen 20 mg PO BEDTIME 30 days valsartan 320 mg PO DAILY HPI Comments Details: 77-year-old woman with a history of obesity and diabetes mellitus with its chronic kidney disease has been referred for evaluation of CKD. She has had high attention and diabetes medicines 1996. Upon reviewing the labs it appears that the blood sugars have been suboptimally controlled with a hemoglobin A1c of around 10%. She was also found to have significant proteinuria. She is on a maximum dose of valsartan of 320 mg. Baseline serum creatinine is between 1.11.2 mg/dL. In April the serum creatinine was 1.35 and 1.49 mg/dL. And hence this referral 11/08/23: Overall doing OK. Accompanied by daughter c/o abdominal distention - always and she keeps spitting frequently. No vomiting Didactic Instructor service was used 01/12/24;c/o cough and vomiting 06/15/24 OVerall doing well. JArdiance was added in Mar 15 Denies any complaints [facility] Medical History CKD (chronic kidney disease) stage 3, GFR 30-59 ml/min Acute stroke due to ischemia Abdominal bloating Elevated TSH Preoperative clearance Bilateral leg pain Urticaria Obesity (BMI 30-39.9) Diabetic nephropathy associated with type 2 diabetes mellitus Nausea and vomiting Microalbuminuria due to type 2 diabetes mellitus Paroxysmal atrial fibrillation Slurred speech History of endometrial cancer Depression Iron deficiency anemia History of left breast cancer Hypothyroidism Schizophrenia intermediate (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 Lungs entry equal no rales. Heart S1-S2 heard no gallop or rub. Abdomen soft nontender. Neuro alert awake oriented. No asterixis. Extremities no edema. Results Reviewed Nephrology Results: Hgb 11.0 g/dl (12.0-16.0) L 05/21/24 WBC 7.6 X10*3/uL (4.8-10.8) 05/21/24 Plt Count 228 X10*3/uL (160-400) 05/21/24 Sodium 140 mmol/L (135-145) 06/15/24 Potassium 4.6 mmol/L (3.3-5.1) 06/15/24 Chloride 109 mmol/L (96-108) H 06/15/24 Carbon Dioxide 22 mmol/L (22-29) 06/15/24 BUN 32 mg/dL (9-16) H 06/15/24 Creatinine 1.53 mg/dL (0.5-1.4) H 06/15/24 Calcium 9.6 mg/dL (8.4-10.2) 06/15/24 Urine Creatinine 97.69 mg/dL 03/22/24 Assessment & Plan Assessment & Plan (1) Hypertension: Code(s): I10 - Essential (primary) hypertension Category: Medical Qualifiers: Hypertension type: essential hypertension Qualified Code(s): I10 - Essential (primary) hypertension Plan: Goal is to maintain blood pressure less than 130/80. Discussed weight loss. She should stay on low-sodium diet. Continue with current antihypertensive regimen. (2) CKD (chronic kidney disease) stage 3, GFR 30-59 ml/min: Code(s): N18.30 - Chronic kidney disease, stage 3 unspecified Category: Medical Plan: CKD 3 with about 1 g of proteinuria in setting of longstanding diabetes mellitus. She probably has underlying diabetic nephropathy. There could be a component of CASS. Differential diagnosis would include hypoperfusion. She had a CT scan back in October which did not reveal any significant obstruction. 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 Discussed importance of tight control of blood sugar and maintain hemoglobin A1c less than 7%. Agree with maximizing ARB. She will benefit from the addition of SGLT 2 inhibitor. Renal ultrasonogram unremarkable in October 2023 Superimposed CASS Cr bumped to 1.7 Call family to get updated med list REcheck Labs today Orders: Orders Basic Metabolic Panel Today N18.9 - Chronic kidney disease, unspecified Coding Level of Care Code Est Pt Level 4 (62889) Diagnoses Essential hypertension I10 Hypertension type: essential hypertension CKD (chronic kidney disease) stage 3, GFR 30-59 ml/min N18.30
--- OUTSIDE RECORDS SUMMARY | 2024-06-15 11:00 | XMS_ITS | Encounter Summary ---
Author Organization [employer] Address [address] [facility] 7[address] [place] [address] Care Team Providers Care Pulmonary Function Technician Name Role Phone Lois Salazar MD Primary Care Provider [phone] Jono Pérez PharmD Unavailable [phone] Encounter Details Date Type Department Care Team (Late st Contact Info) Description 12/18/2023 Orders Only [facility] MEDICINE [address] [place], [place] [phone] Lois Salazar MD [address] [place], [place] [phone] Social History Tobacco Use Types Packs/Day Years Used Date Smoking Tobacco: Never Passive Smoke Exposure: Never Smokeless Tobacco: Never Alcohol Use Standard Drinks/Week Comments Never 0 (1 standard drink = 0.6 oz pur e alcohol) Depression Answer Date Recorded Patient Health Questionnaire-9 Score 2 09/20/2023 Patient Health Questionnaire-9 Score 2 09/20/2023 Last PHQ-9: Questionnaire Data Not on file 0 09/20/2023 Housing Stability Answer Date Recorded What is your housing situation today? I have leah miller 09/20/[address] you li ve. Do you have problems with any of the following? None of the above 09/20/2023 Food Insecurity Answer Date Recorded Within the past 12 months, y ou worried that your food would run out before you got money to buy more: Never True 09/20/2023 Within the past 12 months,th e food you bought just didn't last and you didn't have enough money to get more: Never True Transportation Answer Date Recorded In the past 12 months, has l ack of transportation kept you from medical appts, meetings, work or from getting things needed for daily living? No 09/20/2023 Utilities Answer Date Recorded In the past 12 months, has t he electric, gas, oil or water company threatened to shut off services in your home? No 09/20/2023 Depression Answer Date Recorded Patient Health Questionnaire-2 Score 2 09/20/2023 Comments Unknown Sex and Gender Information Value Date Recorded Sex Assigned at Female 03/22/2022 10:18 AM EDT Legal Sex Female 10:18 AM EDT Gender Identity Female 03/22/2022 10:18 AM EDT Sexual Orientation Don't know 03/22/2022 10 :18 AM EDT documented as of this encounter Plan of Treatment Upcoming Encounters Date Type Department Care Team (Late st Contact Info) Description 07/04/2024 9:00 AM EST Office Visit [facility] ADULT DENTAL [address] [place] [address] Shivani Pan 10/03/2024 2:00 PM EDT Medication Management [facility] MEDICINE [address] [place] [address] Jono Pérez PharmD [address] [place] [address] documented as of this encounter Goals Goal Patient Goal Type Associated Problems Recent Progress Patient-Stated? Author Blood Pressure < 140/90 Blood Pressure 124/54( 024 2:07 PM EST) No Jono Pérez PharmD documented as of this encounter Visit Diagnoses Not on filedocumented in this encounter Additional Health Concerns Assessment Noted Time PHQ-9 Depression Total Score: 2 09/20/19 24 9:42 AM EDT documented as of this encounter Care Teams Pulmonary Function Technician Relationship Specialty Start Date End Date Lois Salazar MD [address] [place] [address] PCP - General Family Medicine 05/27/23 Jono Pérez PharmD [address] [place] [phone] Pharmacist Internal Medicine 07/04/23 documented as of this encounter
--- OUTSIDE RECORDS SUMMARY | 2024-06-15 11:00 | XMS_ITS | Clinical Summary ---
Author Organization [facility] Facility Address [address] [place] [address] Care Team Providers Care Ict Project Manager Name Role Phone Yesi Linares MD Primary Care Provider [phone] Medications amLODIPine (NORVASC) 10 MG tablet Take 10 mg by mouth 1 (one) time each day Active ASPIRIN 81 PO Take 81 mg by mouth 1 (one) time each day Active citalopram (CeleXA) 20 MG tablet Take 20 mg by mouth 1 (one) time each day Active dicyclomine (BENTYL) 20 MG tablet Take 20 mg by mouth 1 (one) time each day Active valsartan (Diovan) 320 MG tablet Take 320 mg by mouth 1 (one) time each day Active apixaban (Eliquis) 5 MG tablet Take 5 mg by mouth 2 (two) times a day Active insulin lispro (HumaLOG) 100 UNIT/ML injection Active ferrous sulfate 325 (65 Fe) MG tablet Take 325 mg by mouth 1 (one) time each day Active insulin glargine (Lantus) 100 UNIT/ML injection Active atorvastatin (Lipitor) 40 MG tablet Take 40 mg by mouth 1 (one) time each day Active Magnesium 500 MG capsule Take 250 mg by mouth 2 (two) times a day 08/29/2017 Active metFORMIN (GLUCOPHAGE) 500 MG tablet Take 750 mg by mouth 2 (two) times a day Active metoprolol succinate XL (TOPROL XL) 50 MG 24 hr tablet Take 50 mg by mouth 1 (one) time each day Active omeprazole (PriLOSEC) [address] capsule Take 40 mg by mouth 1 (one) time each day Active QUEtiapine (SEROquel) 50 MG tablet Take 50 mg by mouth 1 (one) time each day Active risperiDONE (RisperDAL) 1 MG tablet Take 1 mg by mouth 1 (one) time each day Active tamoxifen (NOLVADEX) 20 MG chemo tablet Take 20 mg by mouth 1 (one) time each day Active linaGLIPtin (Tradjenta) 5 MG tablet Take 5 mg by mouth 1 (one) time each day Active ascorbic acid (VITAMIN C) 500 MG CR capsule Take 500 mg by mouth 1 (one) time each day Active Cholecalciferol 50 MCG (2000 UT) capsule Take 50 mcg by mouth 1 (one) time each day Active Active Problems Problem Noted Date Diagnosed Date Anemia 12/29/2020 Essential hypertension 12/29/2020 Proteinuria 12/29/2020 Type 2 diabetes mellitus without complication Family History Medical History Relation Comments Diabetes Mother Hypertension Mother Relation Status Comments Mother Social History Tobacco Use Types Packs/Day Years Used Date Smoking Tobacco: Never Alcohol Use Standard Drinks/Week Comments No 0 (1 standard drink = 0.6 oz pur e alcohol) Comments Unknown Sex and Gender Information Value Date Recorded Sex Assigned at Not on file Legal Sex Female 4:43 PM EST Gender Identity Not on file Sexual Orientation Not on file Last Filed Vital Signs Vital Sign Reading Time Taken Comments Blood Pressure 118/58 02/05/2019 12:00 PM EDT Pulse 66 02/05/2019 12:00 PM EDT Temperature - - Respiratory Rate - - Oxygen Saturation 97% 02/05/2019 12:00 PM EDT Inhaled Oxygen Concentration - - Weight 83.9 kg (185 lb) 02/05/2019 12:00 PM EDT Height 157.5 cm (5' 2 ) 02/05/2019 12:00 PM EDT Body Mass Index 33.84 02/05/2019 12:00 PM EDT Plan of Treatment Health Maintenance Due Date Last Done Comments Pneumococcal Vaccine: 65+ Ye ars (1 of 1 - PCV) 2010 Diabetes: Hemoglobin A1C 06/22/2020 Diabetes: Ophthalmology Exam 06/22/2020 Diabetes: Pedal Pulse Checked 06/22/2020 Diabetes: Sensory Foot Exam 06/22/2020 Diabetes: Visual Foot Exam 06/22/2020 Influenza Vaccine (#1) 2024 Hepatitis B Vaccine Aged Out No longe r eligible based on patient's age to complete this topic Insurance [employer]UAL MCR/KAYCEE ([id number]) [employer] MCR/KAYCEE ([id number]) Care Teams Ict Project Manager Relationship Specialty Start Date End Date Yesi Linares MD [address] [place], [place] PCP - General 06/02/20
--- OUTSIDE RECORDS SUMMARY | 2024-06-15 11:00 | XMS_ITS | Encounter Summary ---
Author Organization [employer] Address [address] [facility] 7t [place] [address] Care Team Providers Care Economic Adviser Name Role Phone Lois Salazar MD Primary Care Provider [phone] Jono Pérez PharmD Unavailable [phone] Encounter Details Date Type Department Care Team (Late st Contact Info) Description 04/16/2024 Refill [facility] MEDICINE [address] [place], [place] [phone] Lios Salazar MD [address] [place], [place] [phone] Social History Tobacco Use Types Packs/Day Years [...] Description 07/04/2024 9:00 AM EST Office Visit [facility] ADULT DENTAL [address] [place] [address] Shivani Pan 10/03/2024 2:00 PM EDT Medication Management [facility] MEDICINE [address] [place] [address] Jono Pérez PharmD [address] [place] [address] documented as of this encounter Goals Goal [...] documented as of this encounter Care Teams Economic Adviser Relationship Specialty Start Date End Date Lois Salazar MD [address] [place] [phone] PCP - General Family Medicine 05/27/23 Jono Pérez PharmD [address] [place] [phone] Pharmacist Internal Medicine 07/04/23 documented as of this encounter
--- OUTSIDE RECORDS SUMMARY | 2024-06-15 11:00 | XMS_ITS | Encounter Summary ---
Author Organization [employer] Address [address] [facility] 7t [place] [address] Care Team Providers Care Inspector Wreath Name Role Phone Lois Salazar MD Primary Care Provider [phone] Jono Pérez PharmD Unavailable [phone] Encounter Details Date Type Department Care Team ([facility] st Contact Info) Description 05/31/2024 Orders Only GENERIC EXTERNAL DATA DEPARTMENT Provider, Generic External Data Social History Tobacco Use Types Packs/Day Years [...] Description 07/04/2024 9:00 AM EST Office Visit [facility] ADULT DENTAL [address] [place] [address] Shivani Pan 10/03/2024 2:00 PM EDT Medication Management [facility] MEDICINE [address] [place] [address] Jono Pérez PharmD [address] [place] [address] documented as of this encounter Goals Goal Patient Goal Type Associated Problems Recent Progress Patient-Stated? Author Blood Pressure < 140/90 Blood Pressure 124/54( 024 2:07 PM EST) No Jono Pérez, PharmBlane documented as of this encounter Procedures Procedure Name Priority Date/Time Associated Diagnosis Comments GLUCOSE, WHOLE BLOOD Routine 05/31/2024 10:45 AM EST documented in this encounter Results * (ABNORMAL) Glucose, Whole Blood (05/31/2024 10:45 AM EST) Glucose, Whole Blood 204(H) 60 - 115 mg/dL [facility] Comment:METER #: [id number] 5Testing performed in the Endocrinology Department [address] , [address], [facility]. 05/31/2024 10:4 5 AM EST 05/31/2024 10:51 AM EST us Generic External Data Provider LAB BLOOD ORDERAB LES Final Result [facility] [address] [place] [address] [phone] documented in this encounter Visit Diagnoses Not on filedocumented in this encounter Additional Health Concerns Assessment Noted Time PHQ-9 Depression Total Score: 2 09/20/19 24 9:42 AM EDT documented as of this encounter Care Teams Inspector Wreath Relationship Specialty Start Date End Date Lois Salazar MD [address] [place] [address] PCP - General Family Medicine 05/27/23 Jono Pérez, CharlesD [address] [place] [address] Pharmacist Internal Medicine 07/04/23 documented as of this encounter
--- OUTSIDE RECORDS SUMMARY | 2024-06-15 11:00 | XMS_ITS | Encounter Summary ---
Author Organization [employer] [facility] Address [address] [facility] [address] [place] [address] Care Team Providers Care Retail Property Manager Name Role Phone Lois Salazar MD Primary Care Provider [phone] Jono Pérez PharmD Unavailable [phone] Reason for Referral * Consultation (Routine) - Authorized Specialty Diagnoses / Procedures Referred By Marta flores Referred To Contact Pharmacy Diagnoses Essential hypertension Type 2 diabetes mellitus with hyperglycemia, with long-term current use of insulin (CMS/HCC) Lois Salazar MD [address] [place] [address] Phone: tel: fax: Referral ID Status Reason Start Date Expiration Date Visits Requested Visits Authorized [id number] Authorized Consult and Treat 04/03/2024 04/03/2025 6 6 Encounter Details Date Type Department Care Team ([facility] st Contact Info) Description 04/03/2024 Orders Only [facility] MEDICINE [address] [place] [phone] Lois Salazar MD [address] [place], [place] [phone] Essential hypertension (Primary Dx); Type 2 diabetes mellitus with hyperglycemia, with long-term current use of insulin (CMS/HCC) Social History Tobacco Use Types Packs/Day Years [...] Description 07/04/2024 9:00 AM EST Office Visit [facility] ADULT DENTAL [address] [place] [address] Shivani Pan 10/03/2024 2:00 PM EDT Medication Management [facility] MEDICINE [address] [place] [address] Jono Pérez, PharmD [address] [place] [address] Scheduled Referrals Name Type Priority Associated Diagnoses Orde r Schedule Referral to Pharmacy CDTM Outpatient Referral Routine Essential hypertension Type 2 diabetes mellitus with hyperglycemia, with long-term current use of insulin ([facility]) Ordered: 04/03/2024 documented as of this encounter Goals Goal Patient Goal Type Associated Problems Recent Progress Patient-Stated? Author Blood Pressure < 140/90 Blood Pressure 124/54( 024 2:07 PM EST) No Jono Pérez, PharmD documented as of this encounter Visit Diagnoses Diagnosis Essential hypertension- Primary Unspecified essential hypertension Type 2 diabetes mellitus with hyperglycemia, with long-term current use of insulin ([facility]) documented in this encounter Additional Health Concerns Assessment Noted Time PHQ-9 Depression Total Score: 2 09/20/19 24 9:42 AM EDT documented as of this encounter Care Teams Retail Property Manager Relationship Specialty Start Date End Date Lois Salazar MD [address] [place] [address] PCP - General Family Medicine 05/27/23 Jono Pérez, PharmD [address] [place] [address] Pharmacist Internal Medicine 07/04/23 documented as of this encounter
--- OUTSIDE RECORDS SUMMARY | 2024-06-15 11:00 | XMS_ITS | Encounter Summary ---
Author Organization [employer] Address [address] [facility] 7t [place] [address] Care Team Providers Care Supervisor Case Loading Name Role Phone Lois Salazar MD Primary Care Provider [phone] Jono Pérez PharmD Unavailable [phone] Reason for Visit * Reason Onset Date Comments Durable Medical Equipment 11/28/2023 Encounter Details Date Type Department Care Team ([facility] st Contact Info) Description 11/28/2023 Telephone [facility] MEDICINE [address] [place], [place] [phone] Lois Salazar MD [address] [place], [place] [phone] Durable Medical Equipment Social History Tobacco Use Types Packs/Day Years [...] AM EDT documented as of this encounter Miscellaneous Notes * Telephone Encounter - Radha Cain - 11/28/2023 12:10 PM EDT Tc from [facility] requesting a hospital Bed . documented in this encounter Plan of Treatment Upcoming Encounters Date Type Department Care Team (Late st Contact Info) Description 07/04/2024 9:00 AM EST Office Visit [facility] ADULT DENTAL [address] [place] [address] Shivani Pan 10/03/2024 2:00 PM EDT Medication Management [facility] MEDICINE [address] [place] [address] Jono Pérez PharmD [address] [place] [address] documented as of this encounter Goals Goal Patient Goal Type Associated Problems Recent Progress Patient-Stated? Author Blood Pressure < 140/90 Blood Pressure 124/54( 024 2:07 PM EST) No Jono Pérez, Mitch documented as of this encounter Visit Diagnoses Not on filedocumented in this encounter Additional Health Concerns Assessment Noted Time PHQ-9 Depression Total Score: 2 09/20/19 24 9:42 AM EDT documented as of this encounter Care Teams Supervisor Case Loading Relationship Specialty Start Date End Date Lois Salazar MD [address] [place] [address] PCP - General Family Medicine 05/27/23 Jono Pérez, PharmD [address] [place] [address] [place] [address] Pharmacist Internal Medicine 07/04/23 documented as of this encounter
--- OUTSIDE RECORDS SUMMARY | 2024-06-15 11:00 | XMS_ITS | Encounter Summary ---
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 Author Blood Pressure < 140/90 Blood Pressure 124/54( 024 2:07 PM EST) No Jono Pérez, PharmD documented as of this encounter Procedures Procedure Name Priority Date/Time Associated Diagnosis Comments CBC WITH AUTO DIFFERENTIAL Routine 03/22/2024 11:11 AM EDT Anemia due to stage 3b chronic kidney disease (CMS/HCC) ([facility]/HCC) documented in this encounter Results * (ABNORMAL) CBC auto differential (03/22/2024 11:11 AM EDT) White Blood Count 7.8 4.8 - 10.8 X10*3/uL [facility] Red Blood Count 4.24 4.20 - 5.50 X10*6/uL [facility] Hemoglobin 11.7(L) 12.0 - 16.0 g/dl [facility] Hematocrit 35.3(L) 37.0 - 47.0 % [facility] Mean Corpuscular Volume 83.3 80.0 - 98.0 fL [facility] Mean Corpuscular Hemoglobin 27.6 27.0 - 33.0 pg [facility] Mean Corpuscular HGB Conc 33.1 31.0 - 35.0 g/dl [facility] Red Cell Distribution Width 13.1 11.0 - 16.0 % [facility] Platelet Count 262 160 - 400 X10*3/uL [facility] Mean Platelet Volume 11.4 9.4 - 12.3 fL [facility] Neutrophils Percent Auto 65.6 45 - 73 % [facility] Imm Gran Pct Auto 0.9(H) 0.0 - 0.4 % [facility] Lymphocytes Percent Auto 25.0 20 - 40 % [facility] Monocytes Percent Auto 5.9 2 - 11 % [facility] Eosinophils Percent Auto 2.1 0 - 4 % [facility] Basophils Percent Auto 0.5 0 - 2 % [facility] NRBC Pct Auto 0.0 0.0 - 0.2 /100WBC [facility] Neutrophils Absolute Auto 5.1 2.0 - 8.3 x10*3/uL [facility] Imm Gran Abs Auto 0.07(H) 0.00 - 0.03 X10*3/uL [facility] Lymphocytes Absolute Auto 1.9 1.2 - 4.9 X10*3/uL [facility] Monocytes Absolute Auto 0.5 0.1 - 1.2 X10*3/uL [facility] Eosinophils Absolute Auto 0.2 0.0 - 0.4 X10*3/uL [facility] Basophils Absolute Auto 0.0 0.0 - 0.2 X10*3/uL [facility] NRBC Abs Auto 0.000 0.0 - 0.012 X10*3/uL [facility] Blood Venous blood specimen / Unknown 03/22/2024 11:11 AM EDT 03/22/2024 1:17 PM EDT us Lois Salazar MD LAB BLOOD ORDERABLES Final Resul t [facility] [address] [place] [phone] documented in this encounter Visit Diagnoses Diagnosis Anemia due to stage 3b chronic kidney disease (CMS/HCC) (CMS/HCC)- Primary documented in this encounter Additional Health Concerns Assessment Noted Time PHQ-9 Depression Total Score: 2 09/20/19 24 9:42 AM EDT documented as of this encounter Care Teams Chuck Boner Relationship Specialty Start Date End Date Lois Salazar MD [address] [place] [phone] PCP - General Family Medicine 05/27/23 Jono Pérez, CharlesD [address] [place] [phone] Pharmacist Internal Medicine 07/04/23 documented as of this encounter
--- OUTSIDE RECORDS SUMMARY | 2024-06-15 11:00 | XMS_ITS | Encounter Summary ---
Author Organization [employer] [facility] Address [address] [facility] 7[address] [place] [address] Care Team Providers Care Switchboard Receptionist Name Role Phone Lois Salazar MD Primary Care Provider [phone] Jono Pérez PharmD Unavailable [phone] Reason for Visit * Reason Onset Date Comments medication 07/29/2022 Encounter Details Date Type Department Care Team (Late st Contact Info) Description 07/29/2022 Telephone [facility] ADULT DENTAL [address] [place] [address] Constantine Richardson, ERI [address] [place] [address] medication Social History Tobacco Use Types Packs/Day Years Used Date Smoking Tobacco: Never Smokeless Tobacco: Never Comments Unknown Sex and Gender Information Value Date Recorded Sex Assigned at Female 03/22/2022 10:18 AM EDT Legal Sex Female 10:18 AM EDT Gender Identity Female 03/22/2022 10:18 AM EDT Sexual Orientation Don't know 03/22/2022 10 :18 AM EDT COVID-19 Exposure Response Date Recorded In the last 10 days, have yo u been in contact with someone who was confirmed or suspected to have Coronavirus/COVID-19? No / Unsure 07/21/2022 12:56 PM EST documented as of this encounter Miscellaneous Notes * Telephone Encounter - Angie Bean DDS - 07/29/2022 10:44 AM EST Good morning Kimmie, spoke with patient and daughter(career coordinator). Requested them to plese stop the antibiotic. Daughter states that her mother has always vomited but wanted to confirm if medication could be stopped. Patient will follow up with PCP. * Telephone Encounter - Alicia Burnette - 07/29/2022 9:25 AM EST Patient was scripted an antibiotic on 07/21 and every time she takes it she throws up and is unableto keep food down. Although she has been throwing up, she has continued to take it. Patient startedtaking it after scripted date so she still has a few in bottle. Added Dr. Lake to message due to Dr. Richardson not being in office. DR documented in this encounter Plan of Treatment Upcoming Encounters Date Type Department Care Team (Late st Contact Info) Description 07/04/2024 9:00 AM EST Office Visit [facility] ADULT DENTAL [address] [place] [address] Shivani Pan 10/03/2024 2:00 PM EDT Medication Management [facility] MEDICINE [address] [place] [address] Jono Pérez, PharmD [address] [place] [address] documented as of this encounter Visit Diagnoses Not on filedocumented in this encounter Care Teams Switchboard Receptionist Relationship Specialty Start Date End Date Lois Salazar MD [address] [place] [phone] PCP - General Family Medicine 05/27/23 Jono Pérez, PharmD [address] [place] [phone] Pharmacist Internal Medicine 07/04/23 documented as of this encounter
--- OUTSIDE RECORDS SUMMARY | 2024-06-15 11:00 | XMS_ITS | Encounter Summary ---
Author Organization [employer] Address [address] [facility] [address] [place] [address] Care Team Providers Care Multineedle Shirrer Name Role Phone Lois Salazar MD Primary Care Provider Jono Pérez PharmD Unavailable [phone] Encounter Details Date Type Department Care Team (Late st Contact Info) Description 10/11/2023 Abstract [facility] MEDICINE [address] [place], [place] [phone] Lois Salazar MD [address] [place], [place] [phone] Social History Tobacco Use Types Packs/Day Years [...] is your housing situation today? I have elah miller 09/20/[address] you [...] Description 07/04/2024 9:00 AM EST Office Visit [facility] ADULT DENTAL [address] [place] [address] Shivani Pan 10/03/2024 2:00 PM EDT Medication Management [facility] [address] [place], [place] [phone] Jono Pérez PharmD [address] [place] [address] documented as of this encounter Goals Goal Patient Goal Type Associated Problems Recent Progress Patient-Stated? Author Blood Pressure < 140/90 Blood Pressure 124/54( 024 2:07 PM EST) No Jono Pérez, Mitch documented as of this encounter Procedures Procedure Name Priority Date/Time Associated Diagnosis Comments MAMMOGRAPHY Routine 10/06/2023 documented in this encounter Results * Mammography (10/06/2023) Mammogram BIRADS 2 Normal, Abnormal, BIRADS 1 , BIRADS 2 Anatomical Region Laterality Modality Other 10/06/2023 Historical Provider HEALTH MAINTENANCE Final Result documented in this encounter Visit Diagnoses Not on filedocumented in this encounter Additional Health Concerns Assessment Noted Time PHQ-9 Depression Total Score: 2 09/20/19 24 9:42 AM EDT documented as of this encounter Care Teams Multineedle Shirrer Relationship Specialty Start Date End Date Lois Salazar MD [address] [place] [address] PCP - General Family Medicine 05/27/23 Jono Pérez, CharlesD [address] [place] [address] Pharmacist Internal Medicine 07/04/23 documented as of this encounter
--- OUTSIDE RECORDS SUMMARY | 2024-06-15 11:00 | XMS_ITS | Clinical Summary ---
Author Organization [employer] Address [address] [place] [address] Care Team Providers Care Lace Roller Name Role Phone Lois Ennis MD Primary Care Provider [phone] Jono Pérez PharmD Unavailable [phone] Allergies Active Allergy Reactions Criticality Noted Date Comments Aureliano Inhibitors Cough High 08/21/2010 Lactose High 08/05/2023 Other Reaction(s): GI DISCOMFORT Medications apixaban (Eliquis) 5 MG tablet Take 5 mg by mouth 2 times daily. 022 Active tamoxifen (Nolvadex) 20 MG chemo tablet Take 1 tablet by mouth at bed time. Active UltiGuard SafePack Pen Needle 32G X 4 MM misc USE THREE TIMES DAILY 023 Active Diclofenac Sodium 1 % gel Apply to affected area once or twice daily as needed for pain 350 g 3 024 Active lidocaine (Lidoderm) 5 % patch Apply 1 patch topically in the morning. Remove & discard patch within 12 hours or as directed by MD. 30 patch 11 024 Active TRUEplus Lancets 33G misc TEST BLOOD SUGAR FOUR TIMES DAILY 023 Active metoclopramide (Reglan) 5 MG tablet Take 1 tablet by mouth three times daily 024 Active Simethicone Ultra Strength 180 MG capsule Take 1 tablet by mouth three times daily 024 Active FeroSul 325 (65 Fe) MG tablet Take 1 tablet by mouth in the morning. 023 Active insulin lispro (HumaLOG) 100 UNIT/ML injection INJECT 35 UNITS SUBCUTANEOUSLY THREE TIMES DAILY. HOLD DINNER DOSE IF BLOOD SUGAR IS LESS THAN 200 023 Active metoprolol succinate XL (Toprol-XL) 100 MG 24 hr tablet Take 100 mg by mouth in the morning. Active Blood Pressure Monitor kitIndications: Hypertension, unspecified type Use to check blood pressure daily as directed 1 kit Active Continuous Blood Gluc Sensor (FreeStyle Carola 2 Sensor) misc USE DIRECTED CHANGE EVERY 14 DAYS Active Linzess 72 MCG capsule TAKE 1 CAPSULE BY MOUTH EVERY DAY IN THE MORNING Active glucose 4 g chewable tabletIndicatio ns:Type 2 diabetes mellitus with other specified complication, with long-term current use of insulin ([facility]) Chew 4 tablets by mouth as needed for hypoglycemia. 40 tablet 11 Active glucagon (Baqsimi) 3 MG/DOSE nasal powderIndicatio ns:Type 2 diabetes mellitus with other specified complication, with long-term current use of insulin ([facility]) Instill 3 mg (1 actuation) into 1 nostril as needed for severe hypoglycemia. May repeat dose if there has been no response after 15 minutes. 2 each 1 Active atorvastatin (Lipitor) 80 MG tablet Take 80 mg by mouth at bedtime. Active FreeStyle Precision En Test test stripIndication s:Type 2 diabetes mellitus with hyperglycemia, with long-term current use of insulin ([facility]) Check your sugar 5 times per day 200 each 11 Active Additional Information Patient taking differently: Check your sugar four times per day, Reason: Other (Prescirbed by Endo with QID directions), Reported on 11/17/2023 Tresiba FlexTouch 200 UNIT/ML injection Inject 65 Units under the skin Once per day. Active famotidine (Pepcid) 20 MG tablet Take 1 tablet (20 mg) by mouth at bedtime. Take 1 tablet by mouth at bedtime 90 tablet 3 024 2024 Active amLODIPine (Norvasc) 10 MG tabletIndicatio ns:Essential hypertension TAKE 1 TABLET BY MOUTH EVERY MORNING 90 tablet 1 Active Jardiance 10 MG Take 10 mg by mouth in the morning. Active omeprazole (PriLOSEC) [address] capsule Take 1 capsule (20 mg) by mouth before breakfast. Do not crush or chew. 90 capsule 3 024 2024 Active valsartan (Diovan) 320 MG tabletIndicatio ns:Essential hypertension Take 1 tablet (320 mg) by mouth in the morning. 90 tablet 3 024 Active cholecalciferol (D3-1000) 25 MCG (1000 UT) capsule TAKE 1 CAPSULE BY MOUTH EVERY MORNING 30 capsule 2 Active magnesium oxide 250 MG tablet TAKE 1 TABLET BY MOUTH TWICE DAILY IN THE MORNING AND IN THE EVENING 180 tablet 024 Active memantine (Namenda) 5 MG tablet TAKE 1 TABLET BY MOUTH TWICE DAILY IN THE MORNING AND IN THE EVENING 60 tablet 025 Active memantine (Namenda) 5 MG tablet TAKE 1 TABLET BY MOUTH TWICE DAILY IN THE MORNING AND IN THE EVENING 60 tablet 024 2024 Discontinued Active Problems Problem Noted Date Diagnosed Date Arthralgia of left temporomandibular joint 12/17 Gastroparesis 10/10/2023 Assessment & Plan (03/15/2024 4:04 PM EDT): - following with [facility] GI, last seen in July 2023 - Rx metoclopramide 5 mg tid - Use the minimum effective dose due to her neuropsychiatric condition. Assessment & Plan (12/18/2023 12:56 PM EDT): - following with [facility], last seen in July 2023 - Rx metoclopramide 5 mg tid - Use the minimum effective dose due to her neuropsychiatric condition. Lumbar degenerative disc disease 10/10/2023 Urinary incontinence 09/22/2023 Assessment & Plan (09/22/2023 8:37 AM EDT): - multifactorial: s/p CVA; Alzheimer's disease - Rx incontinence supply Fecal incontinence 09/22/2023 Assessment & Plan (09/22/2023 8:37 AM EDT): - multifactorial: s/p CVA; Alzheimer's disease - Rx incontinence supply Disorder of left temporomandibular joint 04/30/2 024 Assessment & Plan (09/22/2023 8:37 AM EDT): - patient did not complain any problem today History of stroke with current residual effects 09/20/2023 Assessment & Plan (03/15/2024 10:24 AM EDT): - 08/11/23 acute ischemic stroke. [facility] hospitalization. Seen by neurologist. Increased atorvastatin to 80 mg at bedtime. Already on apixaban for A-fib. Recommended to continue. - MRI on 08/12/23 showed a 1.9 cm acute infarct involving the right thalamus and posterior limb of the right internal capsule, right [employer] territory. - s/p rehab 08/15/23 to 09/01/23. - recent hospitalization for mental status change. MRI and head/neck CT did not show any acute pathology. EEG no seizure. - referred to neurologist for further evaluation and recommendation for both Alzheimer's disease and s/p CVA in August 2023 - referred for speech therapy in August 2023 Assessment & Plan (12/18/2023 12:43 PM EDT): - 08/11/23 acute ischemic stroke. [facility] hospitalization. Seen by neurologist. Increased atorvastatin to 80 mg at bedtime. Already on apixaban for A-fib. Recommended to continue. - MRI on 08/12/23 showed a 1.9 cm acute infarct involving the right thalamus and posterior limb of the right internal capsule, right [employer] territory. - s/p rehab 08/15/23 to 09/01/23. - recent hospitalization for mental status change. MRI and head/neck CT did not show any acute pathology. EEG no seizure. - referred to neurologist for further evaluation and recommendation for both Alzheimer's disease and s/p CVA in August 2023 - referred for speech therapy in August 2023 Assessment & Plan (09/22/2023 8:35 AM EDT): - 08/11/23 acute ischemic stroke - MRI on 08/12/23 showed a 1.9 cm acute infarct involving the right thalamus and posterior limb of the right internal capsule. - Seen by neurologist in the hospital and recommended to continue apixaban and increase atorvastatin to 80 mg at bedtime. - s/p rehab 08/15/23 to 09/01/23. - refer to neurologist for further evaluation and recommendation for both Alzheimer's disease and s/p CVA - refer for speech therapy Chronic right shoulder pain 09/20/2023 Assessment & Plan (09/20/2023 12:29 PM EDT): - recommended PT - recommended heat pad Stage 3 chronic kidney disease 05/27/2023 Assessment & Plan (03/15/2024 12:37 PM EDT): - following with Dr. Barclay [facility] nephrology, last seen in December 2023 - continue current medications - avoid nephrotoxic drugs - continue SGLT2 inhibitor - optimize HTN and diabetes mellitus management Assessment & Plan (12/20/2023 4:04 PM EDT): - following with Dr. Barclay [facility] nephrology, last seen in October 2023 - continue current medications - avoid nephrotoxic drugs - optimize HTN and diabetes mellitus management Assessment & Plan (09/20/2023 10:37 AM EDT): - following with Dr. Barclay [facility] nephrology - continue current medications - avoid nephrotoxic drugs - optimize HTN and diabetes mellitus management Assessment & Plan (05/27/2023 12:51 PM EST): - following with Dr. Barclay [facility] nephrology - continue current medications - avoid nephrotoxic drugs - optimize HTN and diabetes mellitus management Paroxysmal atrial fibrillation 05/27/2023 Assessment & Plan (03/15/2024 10:22 AM EDT): - following [facility] Cardiology, last seen in Mar 2023, annual follow up - [id number] - continue apixaban - currently rate control with metoprolol - Dr. Fonseca is entertaining rhythm control if pt has recurrence of symptomatic atrial fibrillation Assessment & Plan (12/18/2023 1:03 PM EDT): - following [facility] Cardiology, last seen in Mar 2023, annual follow up - [id number] - continue apixaban - currently rate control with metoprolol - Dr. Fonseca is entertaining rhythm control if pt has recurrence of symptomatic atrial fibrillation Assessment & Plan (09/23/2023 6:34 AM EDT): - following [facility] Cardiology - [id number] 5 - continue apixaban - currently rate control with metoprolol - Dr. Fonseca is entertaining rhythm control if pt has recurrence of symptomatic atrial fibrillation Assessment & Plan (05/27/2023 12:56 PM EST): - following [facility] ED - [id number] 5 - continue apixaban - currently rate control with metoprolol - Dr. Fonseca is entertaining rhythm control if pt has recurrence of symptomatic atrial fibrillation Hearing difficulty of both ears 05/27/2023 Assessment & Plan (12/18/2023 12:47 PM EDT): - seen in Audiology clinic on 08/01/23. Normal hearing. Recommended ENT referral for tinnitus if indicated. Assessment & Plan (09/22/2023 8:38 AM EDT): - seen in Audiology clinic on 08/01/23. Alzheimer's disease 05/26/2023 05/26/2023 Assessment & Plan (03/15/2024 10:22 AM EDT): - no record of evaluation - following with [facility] for BHS - reconcile medications; consider minimizing medications with anticholinergic effect Assessment & Plan (12/18/2023 1:06 PM EDT): - no record of evaluation - following with [facility] for BHS - reconcile medications; consider minimizing medications with anticholinergic effect Assessment & Plan (09/20/2023 10:37 AM EDT): - no record of evaluation - following with [facility] for BHS - reconcile medications; consider minimizing medications with anticholinergic effect Assessment & Plan (05/27/2023 12:43 PM EST): - no record of evaluation - following with [facility] for BHS - reconcile medications; consider minimizing medications with anticholinergic effect Bloating symptom 05/26/2023 05/26/2023 Assessment & Plan (05/27/2023 1:10 PM EST): - following with GI - continue simethicone Chronic constipation 05/26/2023 05/26/2023 Assessment & Plan (12/18/2023 12:57 PM EDT): - following with GI - last colonoscopy in 2016, tubular adenoma - fiber rich diet - continue judicious use of lincosamide and magnesium oxide Assessment & Plan (05/27/2023 12:49 PM EST): - following with GI - last colonoscopy in 2016, tubular adenoma - fiber rich diet - continue judicious use of lincosamide and magnesium oxide Chronic low back pain 05/26/2023 05/26/2023 Assessment & Plan (05/27/2023 1:10 PM EST): - pt has multiple medications - use topical medications, lidocaine patch and diclofenac gel - family and pt requested APAP liquid Gastroesophageal reflux disease 05/26/2023 05/26/2023 Assessment & Plan (03/15/2024 4:42 PM EDT): - following with [facility] GI - last colonoscopy in 2017 - Continue famotidine at renal dose, 20 mg at bedtime - Consider PPI if it security project manager approves - Avoid irritants Spoke with Dr. Bronson Barclay, patient's it security project manager. Since patient's renal function has been stable, use of PPI was approved. Contacted patient's daughter, and informed that we will try omeprazole 20 mg daily. Assessment & Plan (12/18/2023 12:57 PM EDT): - following with [facility] GI - last colonoscopy in 2017 - Decrease famotidine to renal dose, 20 mg at bedtime. 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 Garcia, [facility]. Last seen in 2016 - Risk Control Specialist Onc: Dr. Aquino at [facility] Assessment & Plan (12/18/2023 12:55 PM EDT): - s/p hysterectomy / BSO - following with [facility] Risk Control Specialist onc? - will request records Assessment & Plan (05/27/2023 1:08 PM EST): - s/p hysterectomy / BSO - following with [facility] Risk Control Specialist onc? - will request records Malignant neoplasm of breast 05/26/202308/2023 Assessment & Plan (03/15/2024 5:17 PM EDT): - s/p left partial mastectomy 2017. Invasive ductal carcinoma. - most recent mammography 06/14/23 screening, showing left asymmetry. Additional imaging on 10/06/23 which showed benign finding. BI-RADS 2. - still on tamoxifen - previously following with [facility] oncology, last seen in 2018 - will check whether patient needs to be on tamoxifen and refer patient back to [facility] Onc Assessment & Plan (12/18/2023 12:46 PM EDT): - s/p lumpectomy in 2017 - most recent mammography 06/14/23 screening, showing left asymmetry. Additional imaging on 10/06/23 which showed benign finding. BI-RADS 2. - continue tamoxifen - previously following with [facility] breast cancer clinic Assessment & Plan (09/22/2023 8:39 AM EDT): - s/p lumpectomy in 2017 - continue tamoxifen - previously following with [facility] breast cancer clinic - reminded about need for follow up mammo. 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 Discontinued in 2023. - Microalbumin test: 1g proteinuria; on ARB; 05/26/23 - Lipid profile: 05/26/23 - Diabetic eye exam: Dr. Dempsey, will check next appointment date - Foot exam: 05/26/23 decreased sensation Assessment & Plan (12/18/2023 12:52 PM EDT): - Dx > 20 years - Hgb A1C 8.9% on 12/16/23 - Following with [facility] Endo, last seen on 12/16/23 - Continue working on lifestyle modifications - Continue checking glucose: CGM Dexcom 7 - Continue basal insulin - Tresiba 65 units daily - Continue bolus insulin - Humalog 35 units with meals - Continue metformin ER 750 mg daily - Continue linagliptin 5 mg daily - Microalbumin test: 1g proteinuria; on ARB; 05/26/23 - Lipid profile: 05/26/23 - Diabetic eye exam: Dr. Dempsey, will check next appointment date - Foot exam: 05/26/23 decreased sensation Assessment & Plan (09/23/2023 6:33 AM EDT): - Dx > 20 years - Hgb A1C 9.8% on 09/20/23 - Following with [facility] Endo - Continue working on lifestyle modifications - Continue checking glucose: CGM Dexcom 7 - Continue basal insulin - Toujejo 90 units daily - Continue bolus insulin - Humalog 35 units with meals - Continue metformin ER 750 mg daily - Continue linagliptin 5 mg daily - Microalbumin test: 1g proteinuria; on ARB; 05/26/23 - Lipid profile: 05/26/23 - Diabetic eye exam: Dr. Dempsey, will check next appointment date - Foot exam: 05/26/23 decreased sensation Assessment & Plan (05/27/2023 1:04 PM EST): - Dx > 20 years - Hgb A1C 9.2% - Following with [facility] Endo - Continue working on lifestyle modifications - Continue checking glucose: CGM Dexcom 7 - Continue basal insulin - Toujejo 90 units daily - Continue bolus insulin - Humalog 35 units with meals - Continue metformin ER 750 mg daily - Continue linagliptin 5 mg daily - Microalbumin test: 1g proteinuria; on ARB; 05/26/23 - Lipid profile: 05/26/23 - Diabetic eye exam: Dr. Dempsey, will check next appointment date - Foot exam: 05/26/23 decreased sensation Proteinuria 12/29/2020 05/26/2023 Contusion of hip 04/06/2012 05/26/2023 Vitamin D deficiency 10/27/2011 05/26/2023 Assessment & Plan (05/27/2023 12:57 PM EST): Continue vitamin D supplementation Essential hypertension 10/06/2011 Assessment & Plan (03/15/2024 10:22 AM EDT): -Goal BP < 140/90 per JNC-8 and < 130/80 per ACC/AHA guideline (Treatment threshold >= 130/80 ), Dr. Fonseca suggests goal < 130/84 -Co-managed with our pharmacist, employee wellness/fitness coordinator, and it security project manager -BP borderline today -Continue working on lifestyle modifications -Continue checking BP at home. -Continue valsartan 320 mg daily -Continue amlodipine 5 mg daily -Continue metoprolol succinate 100 mg daily -Follow up in 3 mo, sooner if any problem arises Assessment & Plan (12/20/2023 4:02 PM EDT): -Goal BP < 140/90 per JNC-8 and < 130/80 per ACC/AHA guideline (Treatment threshold >= 130/80 ), Dr. Fonseca suggests goal < 130/84 -Co-managed with our pharmacist, employee wellness/fitness coordinator, and it security project manager -BP almost at goal -Continue working on lifestyle modifications -Continue checking BP at home. -Continue valsartan 320 mg daily -Continue amlodipine 5 mg daily -Continue metoprolol succinate 100 mg daily -Follow up in 3 mo, sooner if any problem arises Assessment & Plan (09/20/2023 10:37 AM EDT): -Goal BP < 140/90 per JNC-8 and < 130/80 per ACC/AHA guideline (Treatment threshold >= 130/80 ), Dr. Fonseca suggests goal < 130/84 -BP not at goal today, pt attributes it to pain -Continue working on lifestyle modifications -Recommended self-monitoring BP. -Continue valsartan 320 mg daily -Continue amlodipine 5 mg daily -Continue metoprolol succinate 100 mg daily -Follow up in 3 mo, sooner if any problem arises -Refer to CDTM for HTN management and medication reconciliation / safety review Assessment & Plan (05/27/2023 12:46 PM EST): -Goal BP < 140/90 per JNC-8 and < 130/80 per ACC/AHA guideline (Treatment threshold >= 130/80 ), Dr. Fonseca suggests goal < 130/84 -BP not at goal today, pt attributes it to pain -Continue working on lifestyle modifications -Recommended self-monitoring BP. -Continue valsartan 320 mg daily -Continue amlodipine 5 mg daily -Continue metoprolol succinate 100 mg daily -Follow up in 3 mo, sooner if any problem arises -Refer to CDTM for HTN management and medication reconciliation / safety review Anemia 10/06/2011 05/26/2023 Assessment & Plan (12/20/2023 4:05 PM EDT): - following with nephrology; will check whether patient is receiving erythropoietin Mood disorder 10/06/2011 05/26/2023 Assessment & Plan (12/18/2023 12:48 PM EDT): - following with [facility] - needs to reconcile medications Assessment & Plan (05/27/2023 1:11 PM EST): - following with [facility] - needs to reconcile medications Hyperlipidemia 10/06/2011 05/26/2023 Assessment & Plan (12/18/2023 12:44 PM EDT): - last lipid profile 05/27/23 Total cholesterol 125; Triglyceride 291; LDL 40; HDL 27 - continue atorvastatin 80 mg and lifestyle modifications Assessment & Plan (09/22/2023 8:38 AM EDT): - last lipid profile 05/27/23 - continue atorvastatin 80 mg and lifestyle modifications Assessment & Plan (09/20/2023 5:51 AM EDT): >>ASSESSMENT AND PLAN FOR PURE HYPERCHOLESTEROLEMIA WRITTEN ON 05/27/2023 1:09 PM BY LOIS ENNIS MD - last lipid profile 05/27/23 - continue atorvastatin 40 mg and lifestyle modifications Obesity 10/06/2011 05/26/2023 Verruca vulgaris 10/06/2011 05/26/2023 Resolved Problems Problem Noted Date Diagnosed Date Resolved Date Vasovagal syncope 10/10/2023 12/18/2023 Abnormal mammography 09/20/2023 024 Assessment & Plan (09/20/2023 10:25 AM EDT): - patient's family is aware of need for additional study Open fracture of tooth 02/04/202312/17 Dental abscess 02/04/2023 12/18/2023 Sprain of ankle 04/06/2012 05/26/2023 05/27/2023 Encounters Date Type Department Care Team Description 06/06/2024 Refill [facility] [address] [place] [address] Nai Randall MD 05/31/2024 Orders Only GENERIC EXTERNAL DATA DEPARTMENT Provider, Generic External Data 05/11/2024 Refill [facility] [address], [place] [address] Nai Randall MD 05/03/2024 Refill [facility] [address], [place] [address] Nai Randall MD 04/16/2024 Refill [facility] [address], [place] [address] Nanette Travis RN 04/16/2024 Refill [facility] [address], [place] [address] Lois Ennis MD 04/14/2024 Refill [facility] [address], [place] [address] Lois Ennis MD 04/09/2024 Travel 04/06/2024 Telephone [facility] MEDIC[facility] [address] [place] [address] Lois Ennis MD 04/03/2024 Orders Only [facility] [address], [place] [address] Lois Ennis MD Essential hypertension (Primary Dx); Type 2 diabetes mellitus with hyperglycemia, with long-term current use of insulin (CMS/[facility]) 03/23/2024 Telephone [facility] [address] [place] [address] Lois Ennis MD 03/20/2024 Orders Only [facility] [address] [place] [address] Lois Ennis MD Anemia due to stage 3b chronic kidney disease (CMS/HCC) (CMS/HCC) (Primary Dx) 03/20/2024 Telephone [facility] [address] [place] [address] Rema Dickinson RN Medication Question 03/15/2024 10:15 AM EDT Office Visit [facility] [address] [place] [address] Lois Ennis MD Alzheimer's disease ([facility]) (Primary Dx); Essential hypertension; Paroxysmal atrial fibrillation ([facility]); Stage 3b chronic kidney disease ([facility]); Type 2 diabetes mellitus with hyperglycemia, with long-term current use of insulin ([facility]); History of stroke with current residual effects; Encounter for immunization; Gastroesophageal reflux disease, unspecified whether esophagitis present; Gastroparesis; Menopause; 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[facility]); Malignant neoplasm of left female breast, unspecified estrogen receptor status, unspecified site of breast ([facility]); Long-term current use of tamoxifen 03/15/2024 Travel from Last 3 Months Immunizations Name Administration Dates Next Due INFLUENZA VACCINE QUADRIVALE NT RECOMBINANT PRESERVATIVE FREE RIV4 03/07/2020 Influenza Injectable Quadriv alant Preservative Free IIV4 MDCK 08/18/2022 Influenza injectable quadriv alent preservative free 07/01/2023,03/26/2021 Influenza, High Dose Seasona l, Preservative Free 03/15/2024,04/02/2019,03/21/2019,03/14,02/13/2018,02/21/2017,02/16/2016 ,04/03/2015,03/20/2013 Influenza, IIV3, injectable 03/02/2011 Influenza, Split (incl. meera fied surface antigen) 02/25/2012 Pfizer Covid-19 Vaccine 12+ 03/15/2024, Pfizer Covid-19 Vaccine 12+ arthur-sucrose (Adams Cap) 10/06/2021 Pneumococcal Conjugate PCV 13 02/16/2016 Pneumococcal Polysaccharide PPSV23 07/23/2013, RSV Bivalent 07/01/2023 TD (adult), 2 Lf tetanus tox oid, preservative free, adsorbed 01/05/2006 Tdap 03/23/2016 Zoster, Recombinant 09/14/2021,07/03/2021 Family History Medical History Relation Name Comments Depression Daughter anxiety Daughter Relation Name Status Comments Daughter Social History Tobacco Use Types Packs/Day Years Used Date Smoking Tobacco: Never Passive Smoke Exposure: Never Smokeless Tobacco: Never Tobacco Cessation:Counseling Given: No Alcohol Use Standard Drinks/Week Comments Never 0 [...] Don't know 03/22/2022 10 :18 AM EDT Last Filed Vital Signs Vital Sign Reading Time Taken Comments Blood Pressure 124/54 04/09/2024 2:07 PM EST Pulse 64 04/09/2024 2:07 PM EST Temperature 36.3 ??C (97.3 ??F) 03/15/2024 10:12 AM E DT Respiratory Rate 12 03/15/2024 10:12 AM EDT Oxygen Saturation 97% 03/15/2024 10:12 AM EDT Inhaled Oxygen Concentration - - Weight 82.7 kg (182 lb 6.4 oz) 03/15/2024 10:12 AM EDT Height 157.5 cm (5' 2 ) 03/15/2024 10:12 AM EDT Body Mass Index 33.36 03/15/2024 10:12 AM EDT Plan of Treatment Upcoming Encounters Date Type Department Care Team (Late st Contact Info) Description 07/04/2024 9:00 AM EST Office Visit [facility] ADULT DENTAL [address] [place] [address] Shivani Pan 10/03/2024 2:00 PM EDT Medication Management [facility] MEDICINE [address] [place], [place] [phone] Jono Pérez, PharmD [address] [place] [address] Health Maintenance Due Date Last Done Comments Dental Oral Exam 1945 Dental Prophylaxis 1945 Dental X-Ray: Bitewings 1945 Alcohol/Substance Use Screening 1957 Hepatitis C Screening 11/30/1963 Diabetes: Foot Exam 05/26/2024 05/26/2023, 05/26/2023, 05/26/2023, Additional history exists Diabetes: Hemoglobin A1C 06/15/2024 024, 09/20/2023, 05/26/2023 Depression Screening 09/19/2024 09/20/2023, 09/20/19 SDOH Screening 09/19/2024 09/20/2023 Mammogram 10/05/2024 10/06/2023, 06/14/2023 Tobacco Screening 03/15/2025 03/15/2024 Diabetes: Urine Protein Screening 03/22/2025 03/22/2024, 05/27/2023 Lipid Panel 03/22/2025 03/22/2024, 05/27/2023 Eye Exam 10/06/2025 10/07/2023 Dental X-Ray: Full Mouth 03/12/2026 03/11/2023 DTaP/Tdap/Td Vaccines (2 - Td or Tdap) 03/23/2026 03/23/2016, 01/05/2006 Pneumococcal Vaccine: 65+ Years Completed 02/16/2016, 07/23/2013, 01/26/2006 Zoster Vaccines Completed 09/14/2021, 07/03/2021 RSV Patients and Patients Aged 60 years or older Completed 07/01/2023 COVID-19 Vaccine Completed 03/15/2024, , 10/06/2021, Additional history exists Influenza Vaccine Completed 03/15/2024, , 08/18/2022, Additional history exists HIB Vaccines Aged Out No longer eligi ble based on patient's age to complete this topic HPV Vaccines Aged Out No longer eligi ble based on patient's age to complete this topic Hepatitis A Vaccines Aged Out No long er eligible based on patient's age to complete this topic Hepatitis B Vaccines Aged Out No long er eligible based on patient's age to complete this topic IPV Vaccines Aged Out No longer eligi ble based on patient's age to complete this topic Meningococcal Vaccine Aged Out No ingrid rosaura eligible based on patient's age to complete this topic RSV under 20 months Aged Out No longe r eligible based on patient's age to complete this topic Rotavirus Vaccines Aged Out No longer eligible based on patient's age to complete this topic Goals Goal Patient Goal Type Associated Problems Recent Progress Patient-Stated? Author Blood Pressure < 140/90 Blood Pressure 124/54( 024 2:07 PM EST) Jono Perez, Mitch Procedures Procedure Name Priority Date/Time Associated Diagnosis Comments GLUCOSE, WHOLE BLOOD Routine 05/31/2024 10:45 AM EST ALBUMIN, RANDOM URINE W/CREATININE Routine 03/22/2024 11:20 AM EDT Type 2 diabetes mellitus with hyperglycemia, with long-term current use of insulin ([facility]) CBC WITH AUTO DIFFERENTIAL Routine 03/22/2024 11:11 AM EDT Anemia due to stage 3b chronic kidney disease ([facility]/HCC) ([facility]) VITAMIN B12/FOLATE, SERUM PANEL Routine 03/22/2024 11:11 AM EDT Type 2 diabetes mellitus with hyperglycemia, with long-term current use of insulin ([facility]) LIPID PANEL WITH REFLEX TO DIRECT LDL Routine 03/22/2024 11:11 AM EDT Type 2 diabetes mellitus with hyperglycemia, with long-term current use of insulin ([facility]) POCT GLYCATED HEMOGLOBIN, TOTAL Routine 03/15/2024 10:17 AM EDT Type 2 diabetes mellitus with hyperglycemia, with long-term current use of insulin ([facility]) POCT GLUCOSE Routine 03/15/2024 10:14 AM EDT Type 2 diabetes mellitus with hyperglycemia, with long-term current use of insulin ([facility]) DIABETES EYE EXAM Routine 10/07/2023 MAMMOGRAPHY Routine 10/06/2023 PANORAMIC RADIOGRAPHIC IMAGE Routine 03/11/2023 1:00 PM EDT from Last 3 Months or Most Recently Relevant to Health Maintenance Results * (ABNORMAL) Glucose, Whole Blood (05/31/2024 10:45 AM EST) Glucose, Whole Blood 204(H) 60 - 115 mg/dL [facility] Comment:METER #: [id number] 5Testing performed in the Endocrinology Department [address], [address], [facility]. 05/31/2024 10:4 5 AM EST 05/31/2024 10:51 AM EST us Generic External Data Provider LAB BLOOD ORDERAB LES Final Result [facility] [address] [place] [phone] * (ABNORMAL) Albumin, Random Urine W/Creatinine (03/22/2024 11:20 AM EDT) Creatinine, Urine 97.69 mg/dL [facility] Microalbumin Urine 420.0 mg/L [facility] Microalbum Creatinine Ratio Ur 429.9(H) <30 ug/mg cr [facility] Comment:Albumin/Creatinine R atio Reference Ranges: Normal: < 30 ug/mg creatinine Microalbuminuria: 30 - 300 ug/mg creatinineClinical Albuminuria: > 300 ug/mg creatinine Urine 03/22/2024 11:2 0 AM EDT 03/22/2024 1:18 PM EDT Lois Ennis MD LAB URINE ORDERABLES Final Resul t Performing Organization Address [facility] Co de Phone Number [facility] [address] [place] [address] [phone] * Vitamin B12 (Cobalamin) and Folate Panel, Serum (03/22/2024 11:11 AM EDT) Vitamin B12 857 200 - 900 pg/mL [facility] Comment:NORMAL 200-900 PG/ML INDETERMINATE 160-199 PG/ML DEFICIENT < 160 PG/ML Folate 15.9 > or = 4.0 ng/mL [facility] Comment:Reference Values:> o r = 4.0 ng/mL< 4.0 ng/mL suggests folate deficiency Methotrexate, aminopterin and folinic acid(leucovorin) are chemotherapeutic agents whose molecularstructures are similar to folate; therefore, the Architectfolate assay cannot be used for patients using these drugs. Blood 03/22/2024 11:1 1 AM EDT 03/22/2024 1:17 PM EDT Lois Ennis MD LAB BLOOD ORDERABLES Final Resul t Performing Organization Address [facility] Co de Phone Number [facility] [address] [place] [address] [phone] * (ABNORMAL) Lipid Panel with Reflex to Direct LDL (03/22/2024 11:11 AM EDT) Triglycerides 199(H) <150 mg/dL [facility] Comment:Desirable Triglyceri de: less than 150 mg/dLBorderline High Triglyceride 150-199 mg/dLHigh Triglyceride: 200-499 mg/dLVery High Triglyceride: greater than or equal to 5OO mg/dL Cholesterol 138 <200 mg/dL [facility] Comment:Desirable Cholestero l: less than 200 mg/dLBorderline High Cholesterol: 200-239 mg/dLHigh Cholesterol: greater than 239 mg/dL LDL Cholesterol Calculated 73 <100 mg/dL [facility] Comment:Desirable LDL: less than 100 mg/dLNear Optimal/Above Optimal LDL: 110- 129 mg/dLBorderline High LDL: 130-159 mg/dLHigh LDL: 160-189 mg/dLVery High LDL: greater than or equal to 190 mg/dL HDL Cholesterol 26(L) >40 mg/dL [facility] Comment:Desirable HDL: great er than 40 mg/dL Note: This HDL assay may give artificially low results in patients with liver disease. Blood 03/22/2024 11:1 1 AM EDT 03/22/2024 1:17 PM EDT us Lois Ennis MD LAB BLOOD ORDERABLES Final Resul t [facility] [address] [place] [phone] * (ABNORMAL) CBC auto differential (03/22/2024 11:11 AM EDT) White Blood Count 7.8 4.8 - 10.8 X10*3/uL [facility] Red Blood Count 4.24 4.20 - 5.50 X10*6/uL [facility] Hemoglobin 11.7(L) 12.0 - 16.0 g/dl [facility] Hematocrit 35.3(L) 37.0 - 47.0 % [facility] Mean Corpuscular Volume 83.3 80.0 - 98.0 fL [facility] Mean Corpuscular Hemoglobin 27.6 27.0 - 33.0 pg [facility] Mean Corpuscular HGB Conc 33.1 31.0 - 35.0 g/dl [facility] Red Cell Distribution Width 13.1 11.0 - 16.0 % [facility] Platelet Count 262 160 - 400 X10*3/uL [facility] Mean Platelet Volume 11.4 9.4 - 12.3 fL [facility] Neutrophils Percent Auto 65.6 45 - 73 % [facility] Imm Gran Pct Auto 0.9(H) 0.0 - 0.4 % [facility] Lymphocytes Percent Auto 25.0 20 - 40 % [facility] Monocytes Percent Auto 5.9 2 - 11 % [facility] Eosinophils Percent Auto 2.1 0 - 4 % [facility] Basophils Percent Auto 0.5 0 - 2 % [facility] NRBC Pct Auto 0.0 0.0 - 0.2 /100WBC [facility] Neutrophils Absolute Auto 5.1 2.0 - 8.3 x10*3/uL [facility] Imm Gran Abs Auto 0.07(H) 0.00 - 0.03 X10*3/uL [facility] Lymphocytes Absolute Auto 1.9 1.2 - 4.9 X10*3/uL [facility] Monocytes Absolute Auto 0.5 0.1 - 1.2 X10*3/uL [facility] Eosinophils Absolute Auto 0.2 0.0 - 0.4 X10*3/uL [facility] Basophils Absolute Auto 0.0 0.0 - 0.2 X10*3/uL [facility] NRBC Abs Auto 0.000 0.0 - 0.012 X10*3/uL [facility] Blood Venous blood specimen / Unknown 03/22/2024 11:11 AM EDT 03/22/2024 1:17 PM EDT us Lois Ennis MD LAB BLOOD ORDERABLES Final Resul t [facility] [address] [place] [phone] * (ABNORMAL) POCT HGB A1C (03/15/2024 10:17 AM EDT) Hemoglobin A1C 8.8(A) 4.0 - 6.0 % QC Media Lot # [id number] Lot# Expiration Date Blood 03/15/2024 10:1 7 AM EDT Lois Ennis MD POINT OF CARE TEST ENTER/EDIT OR DERABLES Final Result * (ABNORMAL) POCT Glucose (03/15/2024 10:14 AM EDT) Glucose Blood, POC 211(A) 60 - 200 mg/dL QC Media Lot # [id number] Lot# Expiration Date Blood Capillary blood specimen / Unknown 03/15/2024 10:14 AM EDT Lois Ennis MD POINT OF CARE TEST ENTER/EDIT OR DERABLES Final Result * Diabetes Eye Exam (10/07/2023) Eye Exam Normal Normal Result [facility] Historical Provider HEALTH MAINTENANCE Final Result * Mammography (10/06/2023) Mammogram BIRADS 2 Normal, Abnormal, BIRADS 1 , BIRADS 2 Anatomical Region Laterality Modality Other 10/06/2023 Historical Provider HEALTH MAINTENANCE Final Result from Last 3 Months or Most Recently Relevant to Health Maintenance [facility] [address] [place] [phone] Advance Directives Documents on File Type Date Recorded Patient Assistant Passenger Locomotive Engineer Expl anation Advance Directives and Livin g Will 12/18/2023 12:04 PM Care Teams Lace Roller Relationship Specialty Start Date End Date Lois Ennis MD [address] [place], [place] [phone] PCP - General Family Medicine 05/27/23 Jono Pérez, CharlesD [address] [place] [address] Pharmacist Internal Medicine 07/04/23
--- OUTSIDE RECORDS SUMMARY | 2024-06-15 11:01 | XMS_ITS | Encounter Summary ---
Author Organization [facility] Address [address] [place] [address] [address] [address] Care Team Providers Care Clothes Drier Assembler Name Role Phone Lois Salazar MD Primary Care Provider Jono Pérez PharmD Unavailable [phone] Reason for Visit * Reason Comments Med Refill Encounter Details Date Type Department Care Team (Late st Contact Info) Description 07/04/2023 Refill [facility] MEDICINE [address] [place], [place] [phone] Lois Salazar MD [address] [place], [place] [phone] Social History Tobacco Use Types Packs/Day Years [...] Description 07/04/2024 9:00 AM EST Office Visit [facility] ADULT DENTAL [address] [place], [place] [phone] Shivani Pan 10/03/2024 2:00 PM EDT Medication Management [facility] MEDICINE [address] [place], [place] [phone] Jono Pérez, PharmD [address] [place], [place] [phone] documented as of this encounter Goals Goal Patient Goal Type Associated Problems Recent Progress Patient-Stated? Author Blood Pressure < 140/90 Blood Pressure 124/54( 024 2:07 PM EST) No Jono Pérez, PharmBlane documented as of this encounter Visit Diagnoses Not on filedocumented in this encounter Care Teams Clothes Drier Assembler Relationship Specialty Start Date End Date Lois Salazar MD [address] [place] [address] PCP - General Family Medicine 05/27/23 Jono Pérez, PharmD [address] [place] [address] Pharmacist Internal Medicine 07/04/23 documented as of this encounter
--- OUTSIDE RECORDS SUMMARY | 2024-06-15 11:01 | XMS_ITS | Encounter Summary ---
Author Organization [facility] Address [address] [facility] [address] [place] [address] Care Team Providers Care Airplane Refueler Name Role Phone Lois Salazar MD Primary Care Provider [phone] Jono Pérez PharmD Unavailable [phone] Encounter Details Date Type Department Care Team (Late st Contact Info) Description 07/23/2022 Abstract [facility] ADULT DENT[facility] [address] [place], [place] [phone] Angie Bean DDS [address] [place], [place] [phone] Social History Tobacco Use Types Packs/Day Years [...] PM EST documented as of this encounter Plan of Treatment Upcoming Encounters Date Type Department Care Team (Late st Contact Info) Description 07/04/2024 9:00 AM EST Office Visit [facility] [address] [place], [place] [phone] Shivani Pan 10/03/2024 2:00 PM EDT Medication Management [facility] [address] [place], [place] [phone] Jono Pérez, PharmD [address] [place] [address] documented as of this encounter Visit Diagnoses Not on filedocumented in this encounter Care Teams Airplane Refueler Relationship Specialty Start Date End Date Lois Salazar MD [address] [place] [phone] PCP - General Family Medicine 05/27/23 Jono Pérez, Mitch [address] [place] [phone] Pharmacist Internal Medicine 07/04/23 documented as of this encounter
--- OUTSIDE RECORDS SUMMARY | 2024-06-15 11:01 | XMS_ITS | Encounter Summary ---
Author Organization [facility] Address [address] [facility] [address] [place] [address] Care Team Providers Care Packing Inspector Name Role Phone Lois Salazar MD Primary Care Provider [phone] Jono Pérez PharmD Unavailable [phone] Encounter Details Date Type Department Care Team (Latest Contact Info) Description 03/03/2021 Abstract [facility] CONVERSIONS Dental, Provider, DDS Social History Tobacco Use Types Packs/Day Years Used Date Smoking Tobacco: Never Assessed Comments Unknown Sex and Gender Information Value [...] 07/04/2024 9:00 AM EST Office Visit [facility] ADULT DENTAL [address] [place] [address] Shivani Pan 10/03/2024 2:00 PM EDT Medication Management [facility] MEDICINE [address] [place] [address] Jono Pérez, PharmD [address] [place] [address] documented as of this encounter Visit Diagnoses Not on filedocumented in this encounter Care Teams Packing Inspector Relationship Specialty Start Date End Date Lois Salazar MD [address] [place] [address] PCP - General Family Medicine 05/27/23 Jono Pérez, PharmD [address] [place] [address] Pharmacist Internal Medicine 07/04/23 documented as of this encounter
--- OUTSIDE RECORDS SUMMARY | 2024-06-15 11:01 | XMS_ITS | Encounter Summary ---
Author Organization [facility] Address [address] [place] [address] [address] [place] [address] Care Team Providers Care Clerk Operator Name Role Phone Lois Salazar MD Primary Care Provider [phone] Jono Pérez PharmD Unavailable Reason for Referral * Consultation (Routine) - Closed Specialty Diagnoses / Procedures Referred By Marta flores Referred To Contact Pharmacy Diagnoses Acute ischemic stroke (CMS/HCC) Xiomara Addison, PharmD [address] [place] [address] Phone: tel: fax: Referral ID Status Reason Start Date Expiration Date V isits Requested Visits Authorized [id number] Closed Continuity of Care 09/15/2023 09/14/2024 1 1 Encounter Details Date Type Department Care Team (Late st Contact Info) Description 09/15/2023 Orders Only [facility] MEDICINE [address] [place], [place] [phone] Xiomara Addison, PharmD [address] [place], [place] [phone] Acute ischemic stroke (CMS/HCC) (Primary Dx) Social History Tobacco Use [...] Description 07/04/2024 9:00 AM EST Office Visit [facility] ADULT DENTAL [address] [place] [address] Shivani Pan 10/03/2024 2:00 PM EDT Medication Management [facility] MEDICINE [address] [place] [address] Jono Pérez PharmD [address] [place] [address] Scheduled Referrals Name Type Priority Associated Diagnoses Orde r Schedule Referral to Pharmacy MTM Outpatient Referral Routine Acute ischemic stroke (CMS/HCC) Ordered: 09/15/2023 documented as of this encounter Goals Goal Patient Goal Type Associated Problems Recent Progress Patient-Stated? Author Blood Pressure < 140/90 Blood Pressure 124/54( 024 2:07 PM EST) No Jono Pérez, Mitch documented as of this encounter Visit Diagnoses Diagnosis Acute ischemic stroke (CMS/HCC)- Primary Unspecified cerebral artery occlusion with cerebral infarction documented in this encounter Care Teams Clerk Operator Relationship Specialty Start Date End Date Lois Salazar MD [address] [place] [phone] PCP - General Family Medicine 05/27/23 Jono Pérez, Mitch [address] [place] [phone] Pharmacist Internal Medicine 07/04/23 documented as of this encounter
--- OUTSIDE RECORDS SUMMARY | 2024-06-15 11:01 | XMS_ITS | Encounter Summary ---
Author Organization [employer] [facility] Address [address] [facility] [address] [place] [address] Care Team Providers Care Electric Fan Assembler Name Role Phone Lois Salazar MD Primary Care Provider [phone] Jono Pérez PharmD Unavailable [phone] Encounter Details Date Type Department Care Team (Latest Contact Info) Description 03/21/2019 Abstract [facility] CONVERSIONS Dental, Provider, DDS Social History [...] Description 07/04/2024 9:00 AM EST Office Visit [facility] ADULT DENTAL [address] [place] [address] Shivani Pan 10/03/2024 2:00 PM EDT Medication Management [facility] MEDICINE [address] [place] [address] Jono Pérez, PharmD [address] [place] [address] documented as of this encounter Visit Diagnoses Not on filedocumented in this encounter Care Teams Electric Fan Assembler Relationship Specialty Start Date End Date Lois Salazar MD [address] [place] [address] PCP - General Family Medicine 05/27/23 PérezJono PharmD [address] [place] [address] Pharmacist Internal Medicine 07/04/23 documented as of this encounter
--- OUTSIDE RECORDS SUMMARY | 2024-06-15 11:01 | XMS_ITS | Encounter Summary ---
Author Organization [facility] Address [address] [place] [address] [address] [address] Care Team Providers Care Runstitching Machine Operator Name Role Phone Lois Salazar MD Primary Care Provider Jono Pérez PharmD Unavailable [phone] Encounter Details Date Type Department Care Team ([facility] Contact Info) Description 08/22/[address] [facility] MEDICINE [address] [place] [address] [phone] Lois Salazar MD [address] [place] [address] [phone] Social History Tobacco Use Types Packs/Day Years [...] Upcoming Encounters Date Type Department Care Team ([facility] Contact Info) Description 07/04/2024 9:00 AM EST Office Visit [facility] ADULT DENTAL [address] [place] [address] [phone] Shivani Pan 10/03/2024 2:00 PM EDT Medication Management [facility] MED[facility] [address] [place] [phone] Jono Pérez, PharmD [address] [place] [address] documented as of this encounter Goals Goal Patient Goal Type Associated Problems Recent Progress Patient-Stated? Author Blood Pressure < 140/90 Blood Pressure 124/54( 024 2:07 PM EST) No Jono Pérez, PharmBlane documented as of this encounter Visit Diagnoses Not on filedocumented in this encounter Care Teams Runstitching Machine Operator Relationship Specialty Start Date End Date Lois Salazar MD [address] [place] [address] PCP - General Family Medicine 05/27/23 Jono Pérez, PharmD [address] [place] [address] Pharmacist Internal Medicine 07/04/23 documented as of this encounter
--- OUTSIDE RECORDS SUMMARY | 2024-06-15 11:01 | XMS_ITS | Encounter Summary ---
Author Organization [facility] Address [address] [place] [address] [address] [address] Care Team Providers Care Kennel Helper Name Role Phone Lois Salazar MD Primary Care Provider [phone] Jono Pérez PharmD Unavailable [phone] Encounter Details Date Type Department Care Team ([facility] Contact Info) Description 03/04/2023 Abstract [facility] ADULT DENTAL [address] [place] [address] [place] Lake DDS [address] [place] [address] Social History Tobacco Use Types Packs/Day Years [...] Upcoming Encounters Date Type Department Care Team ([facility] Contact Info) Description 07/04/2024 9:00 AM EST Office Visit [facility] ADULT DENTAL [address] [place] [address] Shivani Pan 10/03/2024 2:00 PM EDT Medication Management [facility] MEDICINE [address] [place] [address] Jono Pérez, PharmD [address] [place] [address] documented as of this encounter Visit Diagnoses Not on filedocumented in this encounter Care Teams Kennel Helper Relationship Specialty Start Date End Date Lois Salazar MD [address] [place], [place] [phone] PCP - General Family Medicine 05/27/23 Jono Pérez, Mitch [address] [place] [address] Pharmacist Internal Medicine 07/04/23 documented as of this encounter
--- OUTSIDE RECORDS SUMMARY | 2024-06-15 11:01 | XMS_ITS | Encounter Summary ---
Author Organization [employer] [facility] Address [address] [facility] 7[address] [place] [address] Care Team Providers Care Manager Of Product Name Role Phone Lois Salazar MD Primary Care Provider [phone] Jono Pérez PharmD Unavailable [phone] Encounter Details Date Type Department Care Team (Latest Contact Info) Description 02/10/2022 Abstract [facility] CONVERSIONS Dental, Provider, DDS Social History [...] Description 07/04/2024 9:00 AM EST Office Visit [facility] ADULT DENTAL [address] [place] [address] Shivani Pan 10/03/2024 2:00 PM EDT Medication Management [facility] MEDICINE [address] [place] [address] Jono Pérez, PharmD [address] [place] [address] documented as of this encounter Visit Diagnoses Not on filedocumented in this encounter Care Teams Manager Of Product Relationship Specialty Start Date End Date Lois Salazar MD [address] [place] [address] PCP - General Family Medicine 05/27/23 Jono Pérez, PharmD [address] [place] [address] Pharmacist Internal Medicine 07/04/23 documented as of this encounter
--- OUTSIDE RECORDS SUMMARY | 2024-06-15 11:01 | XMS_ITS | Encounter Summary ---
Author Organization [employer] [facility] Address [address] [facility] 7t [place] [address] Care Team Providers Care Votator Machine Operator Name Role Phone Lois Salazar MD Primary Care Provider [phone] Jono Pérez PharmD Unavailable [phone] Encounter Details Date Type Department Care Team (Late Contact Info) Description 12/20/2022 Telephone [facility] ADULT DENTAL [address] [place] [address] Tr Lake DDS [address] [place] [address] Social History Tobacco Use Types Packs/Day Years Used Date Smoking Tobacco: Never Smokeless Tobacco: Never Alcohol Use Standard [...] encounter Miscellaneous Notes * Telephone Encounter - Melina Taylor - 12/20/2022 10:12 AM EDT Catherine Carter 1945 Patient stated she is all out of tylenol and is requesting if more medication can be sent to pharmacy because she's still in a lot of pain. Please advise documented in this encounter Plan of Treatment Upcoming Encounters Date Type Department Care Team (Late Contact Info) Description 07/04/2024 9:00 AM EST Office Visit [facility] ADULT DENTAL [address] [place] [address] PanShae kaysa 10/03/2024 2:00 PM EDT Medication Management [facility] MEDICINE [address] [place] [address] Jono Pérez, PharmD [address] [place] [address] documented as of this encounter Visit Diagnoses Not on filedocumented in this encounter Care Teams Votator Machine Operator Relationship Specialty Start Date End Date Lois Salazar MD [address] [place] [address] PCP - General Family Medicine 05/27/23 Jono Pérez, PharmD [address] [place] [address] Pharmacist Internal Medicine 07/04/23 documented as of this encounter
--- OUTSIDE RECORDS SUMMARY | 2024-06-15 11:01 | XMS_ITS | Encounter Summary ---
Author Organization [employer] [facility] Address [address] [facility] 7[address] [place] [address] Care Team Providers Care Programmer Developer Name Role Phone Lois Salazar MD Primary Care Provider [phone] Jono Pérez PharmD Unavailable [phone] Encounter Details Date Type Department Care Team (Late st Contact Info) Description 07/23/2022 Abstract [facility] ADULT DENTAL [address] [place], [place] [phone] Angie Bean DDS [address] [place], [place] [phone] Social History Tobacco Use Types Packs/Day Years [...] Description 07/04/2024 9:00 AM EST Office Visit [facility] ADULT DENTAL [address] [place], [place] [phone] Shivani Pan 10/03/2024 2:00 PM EDT Medication Management [facility] MEDICINE [address] [place], [place] [phone] Jono Pérez, PharmD [address] [place] [address] documented as of this encounter Visit Diagnoses Not on filedocumented in this encounter Care Teams Programmer Developer Relationship Specialty Start Date End Date Lois Salazar MD [address] [place] [address] PCP - General Family Medicine 05/27/23 Jono Pérez, Mitch [address] [place] [address] Pharmacist Internal Medicine 07/04/23 documented as of this encounter
--- OUTSIDE RECORDS SUMMARY | 2024-06-15 11:01 | XMS_ITS | Encounter Summary ---
Author Organization [employer] Address [address] [facility] 7t [place] [address] Care Team Providers Care Certified Medical Technician Name Role Phone Lois Salazar MD Primary Care Provider [phone] Jono Pérez PharmD Unavailable [phone] Reason for Visit * Reason Comments Med Refill Encounter Details Date Type Department Care Team ([facility] st Contact Info) Description 06/06/[address] [facility] MEDICINE [address] [place], [place] [phone] Nai Randall MD [address] [place], [place] [phone] Social History Tobacco Use Types Packs/Day Years [...] 07/04/2024 9:00 AM EST Office Visit [facility] ADULT DENTAL [address] [place] [address] Shivani Pan 10/03/2024 2:00 PM EDT Medication Management [facility] MEDICINE [address] [place] [address] Jono Pérez PharmD [address] [place] [address] documented as of this encounter Goals Goal [...] documented as of this encounter Care Teams Certified Medical Technician Relationship Specialty Start Date End Date Lois Salazar MD [address] [place] [address] PCP - General Family Medicine 05/27/23 Jono Pérez PharmD [address] [place] [address] Pharmacist Internal Medicine 07/04/23 documented as of this encounter
--- OUTSIDE RECORDS SUMMARY | 2024-06-15 11:01 | XMS_ITS | Encounter Summary ---
Author Organization [employer] [facility] Address [address] [facility] 7t [place] [address] Care Team Providers Care Substance Abuse Rn Name Role Phone Lois Salazar MD Primary Care Provider [phone] Jono Pérez PharmD Unavailable [phone] Reason for Visit * Reason Onset Date Comments insurance 05/12/2023 Encounter Details Date Type Department Care Team ([facility] Contact Info) Description 05/12/2023 Telephone [facility] ADULT DENTAL [address] [place] [address] Tr Lake DDS [address] [place] [address] insurance Social History Tobacco Use Types Packs/Day Years [...] encounter Miscellaneous Notes * Telephone Encounter - Alicia Burnette - 05/12/2023 10:19 AM EST Patient called in to confirm if insurance is active. I am unable to run the [employer] insurance on my end. There was an issue with it that she states has been resolved but she wants to make sure so thatshe can schedule her next visit documented in this encounter Plan of Treatment Upcoming Encounters Date Type Department Care Team ( st Contact Info) Description 07/04/2024 9:00 AM EST Office Visit [facility] ADULT DENTAL [address] [place], [place] [phone] PanShivani 10/03/2024 2:00 PM EDT Medication Management [facility] MEDICINE [address] [place] [address] Jono Pérez, PharmD [address] [place] [address] documented as of this encounter Visit Diagnoses Not on filedocumented in this encounter Care Teams Substance Abuse Rn Relationship Specialty Start Date End Date Lois Salazar MD [address] [place] [address] [phone] PCP - General Family Medicine 05/27/23 Jono Pérez, PharmD [address] [place] [address] [phone] Pharmacist Internal Medicine 07/04/23 documented as of this encounter
--- OUTSIDE RECORDS SUMMARY | 2024-06-15 11:01 | XMS_ITS | Encounter Summary ---
Author Organization [employer] Address [address] [facility] 7t [place] [address] Care Team Providers Care Commissary Production Supervisor Name Role Phone Lois Salazar MD Primary Care Provider [phone] Jono Pérez PharmD Unavailable [phone] Encounter Details Date Type Department Care Team (Late st Contact Info) Description 10/05/2023 Orders Only [facility] MEDICINE [address] [place], [place] [phone] Lois Salazar MD [address] [place], [place] [phone] Social History Tobacco Use Types Packs/Day Years [...] Description 07/04/2024 9:00 AM EST Office Visit [facility] ADULT DENTAL [address] [place] [address] Shivani Pan 10/03/2024 2:00 PM EDT Medication Management [facility] MEDICINE [address] [place] [address] Jono Pérez PharmD [address] [place] [address] documented as of this encounter Goals Goal [...] documented as of this encounter Care Teams Commissary Production Supervisor Relationship Specialty Start Date End Date Lois Salazar MD [address] [place] [address] PCP - General Family Medicine 05/27/23 Jono Pérez PharmD [address] [place] [address] Pharmacist Internal Medicine 07/04/23 documented as of this encounter
== END 2024-06-15 10:26 | disposition home or self-care (01) ==
PROVIDERS: PCP Family Medicine; Visit Provider Internal Medicine Hypertension Specialist
DX: I10 Essential (primary) hypertension (principal); N18.30 Chronic kidney disease, stage 3 unspecified
CPT/HCPCS: 99214

== ENCOUNTER 2024-06-15 10:29 | Outpatient (REF) | payer OTHER, SELFPAY ==
--- OUTSIDE RECORDS SUMMARY | 2024-06-15 11:50 | XMS_ITS | Encounter Summary ---
Author Organization [employer] Address [address] [facility] 7t [place] [address] Care Team Providers Care Blood Bank Laboratory Professional Name Role Phone Lois Salazar MD Primary Care Provider [phone] Jono Pérez PharmD Unavailable [phone] Encounter Details Date Type Department Care Team (Late st Contact Info) Description 12/18/2023 Orders Only [facility] MEDICINE [address] [place], [place] [phone] Lois Salazar MD [address] [place], [place] [phone] Social History Tobacco Use Types Packs/Day Years [...] Description 07/04/2024 9:00 AM EST Office Visit [facility] ADULT DENTAL [address] [place] [address] Shivani Pan 10/03/2024 2:00 PM EDT Medication Management [facility] MEDICINE [address] [place] [address] Jono Pérez PharmD [address] [place] [address] documented as of this encounter Goals Goal [...] documented as of this encounter Care Teams Blood Bank Laboratory Professional Relationship Specialty Start Date End Date Lois Salazar MD [address] [place] [address] PCP - General Family Medicine 05/27/23 Jono Pérez PharmD [address] [place] [address] Pharmacist Internal Medicine 07/04/23 documented as of this encounter
--- OUTSIDE RECORDS SUMMARY | 2024-06-15 11:50 | XMS_ITS | Encounter Summary ---
Author Organization [employer] Address [address] [facility] 7t [place] [address] Care Team Providers Care Leak Hunter Name Role Phone Lois Salazar MD Primary Care Provider [phone] Jono Pérez PharmD Unavailable [phone] Encounter Details Date Type Department Care Team (Late st Contact Info) Description 04/16/2024 Refill [facility] MEDICINE [address] [place], [place] [phone] Lois Salazar MD [address] [place], [place] [phone] Social History Tobacco Use Types Packs/Day Years [...] 07/04/2024 9:00 AM EST Office Visit [facility] ADULT DENTAL [address] [place] [address] Shivani Pan 10/03/2024 2:00 PM EDT Medication Management [facility] MEDICINE [address] [place] [address] Jono Pérez PharmD [address] [place] [address] documented as of this encounter Goals Goal [...] documented as of this encounter Care Teams Leak Hunter Relationship Specialty Start Date End Date Lois Salazar MD [address] [place] [address] PCP - General Family Medicine 05/27/23 Jono Pérez PharmD [address] [place] [address] Pharmacist Internal Medicine 07/04/23 documented as of this encounter
--- OUTSIDE RECORDS SUMMARY | 2024-06-15 11:50 | XMS_ITS | Encounter Summary ---
Author Organization [employer] [facility] Address [address] [facility] 7t [place] [address] Care Team Providers Care Parachute Inspector Name Role Phone Lois Salazar MD Primary Care Provider [phone] Jono Pérez PharmD Unavailable [phone] Reason for Visit * Reason Onset Date Comments medication 07/29/2022 Encounter Details Date Type Department Care Team (Late st Contact Info) Description 07/29/2022 Telephone [facility] ADULT DENTAL [address] [place] [address] Constantine Richardson, ERI [address] [place] [address] medication Social History Tobacco Use Types Packs/Day [...] Good morning Kimmie, spoke with patient and daughter(direct care supervisor). Requested them to plese stop the antibiotic. [...] Description 07/04/2024 9:00 AM EST Office Visit [facility] ADULT DENTAL [address] [place] [address] Shivani Pan 10/03/2024 2:00 PM EDT Medication Management [facility] MEDICINE [address] [place] [address] Jono Pérez, PharmD [address] [place] [address] documented as of this encounter Visit Diagnoses Not on filedocumented in this encounter Care Teams Parachute Inspector Relationship Specialty Start Date End Date Lois Salazar MD [address] [place] [address] PCP - General Family Medicine 05/27/23 Jono Pérez, PharmD [address] [place] [address] Pharmacist Internal Medicine 07/04/23 documented as of this encounter
--- OUTSIDE RECORDS SUMMARY | 2024-06-15 11:50 | XMS_ITS | Encounter Summary ---
Author Organization [employer] Address [address] [facility] 7t [place] [address] Care Team Providers Care Slitting And Shipping Supervisor Name Role Phone Lois Salazar MD Primary Care Provider [phone] Jono Pérez PharmD Unavailable [phone] Encounter Details Date Type Department Care Team ([facility] st Contact Info) Description 05/31/2024 Orders Only [...] Description 07/04/2024 9:00 AM EST Office Visit [facility] ADULT DENTAL 230 [place] [address] Shivani Pan 10/03/2024 2:00 PM EDT Medication Management [facility] MEDICINE [address] [place] [address] oJno Pérez PharmD [address] [place] [address] documented as of this encounter Goals Goal [...] Whole Blood 204(H) 60 - 115 mg/dL [facility] Comment:METER #: [id number] 5Testing performed in the Endocrinology Department [address] , [address], [facility]. 05/31/2024 10:4 5 AM EST 05/31/2024 10:51 AM EST us Generic External Data Provider LAB BLOOD ORDERAB LES Final Result [facility] [address] [place] [address] [phone] documented in this encounter Visit Diagnoses Not on filedocumented in this encounter Additional Health Concerns Assessment Noted Time PHQ-9 Depression Total Score: 2 09/20/19 24 9:42 AM EDT documented as of this encounter Care Teams Slitting And Shipping Supervisor Relationship Specialty Start Date End Date Lois Salazar MD [address] [place] [address] PCP - General Family Medicine 05/27/23 Jono Pérez, CharlesD 230 [place] [address] Pharmacist Internal Medicine 07/04/23 documented as of this encounter
--- OUTSIDE RECORDS SUMMARY | 2024-06-15 11:50 | XMS_ITS | Encounter Summary ---
Author Organization [employer] Address [address] [facility] 7t [place] [address] Care Team Providers Care Popcorn Candy Maker Name Role Phone Lois Salazar MD Primary Care Provider [phone] Jono Pérez PharmD Unavailable [phone] Encounter Details Date Type Department Care Team (Late st Contact Info) Description 10/11/2023 Abstract [facility] MEDICINE [address] [place], [place] [phone] Lois Salazar MD 230 [place], [place] [phone] Social History Tobacco Use Types Packs/Day Years [...] [facility] ADULT DENTAL [address] [place] [address] Shivani Pan 10/03/2024 2:00 PM EDT Medication Management [facility] MEDICINE [address] [place], [place] [phone] Jono Pérez PharmD 230 [place] [address] documented as of this encounter Goals Goal [...] documented as of this encounter Care Teams Popcorn Candy Maker Relationship Specialty Start Date End Date Lois Salazar MD [address] [place] [address] PCP - General Family Medicine 05/27/23 Jono Pérez, CharlesD [address] [place] [address] Pharmacist Internal Medicine 07/04/23 documented as of this encounter
--- OUTSIDE RECORDS SUMMARY | 2024-06-15 11:50 | XMS_ITS | Encounter Summary ---
Author Organization [employer] [facility] Address [address] [facility] 7[address] [place] [address] Care Team Providers Care Tower Erector Name Role Phone Lois Salazar MD Primary Care Provider [phone] Jono Pérez PharmD Unavailable [phone] Reason for Referral * Consultation (Routine) - Authorized Specialty Diagnoses / Procedures Referred By Marta flores Referred To Contact Pharmacy Diagnoses Essential hypertension Type 2 diabetes mellitus with hyperglycemia, with long-term current use of insulin (CMS/HCC) Lois Salazar MD [address] [place] [address] Phone: tel: fax: Referral ID Status Reason Start Date Expiration Date Visits Requested Visits Authorized [id number] Authorized Consult and Treat 04/03/2024 04/03/2025 6 6 Encounter Details Date Type Department Care Team ([facility] [place] st Contact Info) Description 04/03/2024 Orders Only [facility] MEDICINE [address] [place] [address] [phone] Lois Salazar MD [address] [place], [place] [phone] Essential hypertension (Primary Dx); Type 2 diabetes [...] Description 07/04/2024 9:00 AM EST Office Visit [facility] ADULT DENTAL [address] [place] [address] Shivani Pan 10/03/2024 2:00 PM EDT Medication Management [facility] MEDICINE [address] [place] [address] Jono Pérez, PharmD [address] [place] [address] Scheduled Referrals Name Type Priority Associated Diagnoses Orde r Schedule Referral to Pharmacy CDTM Outpatient Referral Routine Essential hypertension Type 2 diabetes mellitus with hyperglycemia, with long-term current use of insulin ([facility]) Ordered: 04/03/2024 documented as of this encounter Goals Goal Patient Goal Type Associated Problems Recent Progress Patient-Stated? Author Blood Pressure < 140/90 Blood Pressure 124/54( 024 2:07 PM EST) No Jono Pérez, PharmD documented as of this encounter Visit Diagnoses Diagnosis Essential hypertension- Primary Unspecified essential hypertension Type 2 diabetes mellitus with hyperglycemia, with long-term current use of insulin ([facility]) documented in this encounter Additional Health Concerns Assessment Noted Time PHQ-9 Depression Total Score: 2 09/20/19 24 9:42 AM EDT documented as of this encounter Care Teams Tower Erector Relationship Specialty Start Date End Date Lois Salazar MD [address] [place] [address] PCP - General Family Medicine 05/27/23 Jono Pérez, PharmD [address] [place] [address] Pharmacist Internal Medicine 07/04/23 documented as of this encounter
--- OUTSIDE RECORDS SUMMARY | 2024-06-15 11:50 | XMS_ITS | Clinical Summary ---
Author Organization [employer] Address [address] [facility] [address] [place] [address] Care Team Providers Care Manager Farm Name Role Phone Lois Ennis MD Primary Care Provider [phone] Jono Pérez PharmD Unavailable [phone] Allergies Active Allergy Reactions Criticality Noted Date [...] complication, with long-term current use of insulin ([facility]) Chew 4 tablets by mouth as needed for hypoglycemia. 40 tablet 11 Active glucagon (Baqsimi) 3 MG/DOSE nasal powderIndicatio ns:Type 2 diabetes mellitus with other specified complication, with long-term current use of insulin ([facility]) Instill 3 mg (1 actuation) into 1 nostril as needed for severe hypoglycemia. May repeat dose if there has been no response after 15 minutes. 2 each 1 Active atorvastatin (Lipitor) 80 MG tablet Take 80 mg by mouth at bedtime. Active FreeStyle Precision En Test test stripIndication s:Type 2 diabetes mellitus with hyperglycemia, with long-term current use of insulin ([facility]) Check your sugar 5 times per day [...] (03/15/2024 4:04 PM EDT): - following with [facility], last seen in July 2023 - Rx metoclopramide 5 mg tid - Use the minimum effective dose due to her neuropsychiatric condition. Assessment & Plan (12/18/2023 12:56 PM EDT): - following with [facility], last seen in July 2023 - [...] AM EDT): - 08/11/23 acute ischemic stroke. [facility] hospitalization. Seen by neurologist. Increased atorvastatin to 80 mg at bedtime. Already on apixaban for A-fib. Recommended to continue. - MRI on 08/12/23 showed a 1.9 cm acute infarct involving the right thalamus and posterior limb of the right internal capsule, right [employer] territory. - s/p rehab 08/15/23 to 09/01/23. [...] PM EDT): - 08/11/23 acute ischemic stroke. [facility] hospitalization. Seen by neurologist. Increased atorvastatin to 80 mg at bedtime. Already on apixaban for A-fib. Recommended to continue. - MRI on 08/12/23 showed a 1.9 cm acute infarct involving the right thalamus and posterior limb of the right internal capsule, right [employer] territory. - s/p rehab 08/15/23 to 09/01/23. [...] PM EDT): - following with Dr. Barclay [facility] nephrology, last seen in December 2023 - continue current medications - avoid nephrotoxic drugs - continue SGLT2 inhibitor - optimize HTN and diabetes mellitus management Assessment & Plan (12/20/2023 4:04 PM EDT): - following with Dr. Barclay [facility] nephrology, last seen in October 2023 - continue current medications - avoid nephrotoxic drugs - optimize HTN and diabetes mellitus management Assessment & Plan (09/20/2023 10:37 AM EDT): - following with Dr. Barclay [facility] nephrology - continue current medications - avoid nephrotoxic drugs - optimize HTN and diabetes mellitus management Assessment & Plan (05/27/2023 12:51 PM EST): - following with Dr. Barclay [facility] nephrology - continue current medications - avoid nephrotoxic drugs - optimize HTN and diabetes mellitus management Paroxysmal atrial fibrillation 05/27/2023 Assessment & Plan (03/15/2024 10:22 AM EDT): - following [facility] Card[facility], last seen in Mar 2023, annual follow up - [id number] - continue apixaban - currently rate control with metoprolol - Dr. Fonseca is entertaining rhythm control if pt has recurrence of symptomatic atrial fibrillation Assessment & Plan (12/18/2023 1:03 PM EDT): - following [facility], last seen in Mar 2023, annual follow up - [id number] - continue apixaban - currently rate control with metoprolol - Dr. Fonseca is entertaining rhythm control if pt has recurrence of symptomatic atrial fibrillation Assessment & Plan (09/23/2023 6:34 AM EDT): - following [facility] - [id number] 5 - continue apixaban - currently rate control with metoprolol - Dr. Fonseca is entertaining rhythm control if pt has recurrence of symptomatic atrial fibrillation Assessment & Plan (05/27/2023 12:56 PM EST): - following [facility] ED - [id number] - continue apixaban - currently rate [...] no record of evaluation - following with [facility] for BHS - reconcile medications; consider minimizing medications with anticholinergic effect Assessment & Plan (12/18/2023 1:06 PM EDT): - no record of evaluation - following with [facility] for BHS - reconcile medications; consider minimizing medications with anticholinergic effect Assessment & Plan (09/20/2023 10:37 AM EDT): - no record of evaluation - following with [facility] for BHS - reconcile medications; consider minimizing medications with anticholinergic effect Assessment & Plan (05/27/2023 12:43 PM EST): - no record of evaluation - following with [facility] for BHS - reconcile medications; consider minimizing [...] (03/15/2024 4:42 PM EDT): - following with [facility] - last colonoscopy in 2017 - Continue famotidine at renal dose, 20 mg at bedtime - Consider PPI if asparagus cutter approves - Avoid irritants Spoke with Dr. Bronson Barclay, patient's asparagus cutter. Since patient's renal function has been stable, use of PPI was approved. Contacted patient's daughter, and informed that we will try omeprazole 20 mg daily. Assessment & Plan (12/18/2023 12:57 PM EDT): - following with [facility] - last colonoscopy in 2017 - Decrease famotidine to renal dose, 20 mg at bedtime. - Avoid irritants Assessment & Plan (05/27/2023 12:47 PM EST): - following with [facility] - last colonoscopy in 2017 - [...] s/p hysterectomy / BSO in 2017 - Camp Counselor: Dr. Garcia, [facility]. Last seen in 2016 - Infant And Toddler Teacher Onc: Dr. Aquino at [facility] Assessment & Plan (12/18/2023 12:55 PM EDT): - s/p hysterectomy / BSO - following with [facility] Infant And Toddler Teacher onc? - will request records Assessment & Plan (05/27/2023 1:08 PM EST): - s/p hysterectomy / BSO - following with [facility] Infant And Toddler Teacher onc? - will request records Malignant neoplasm of breast 05/26/202308/2023 Assessment & Plan (03/15/2024 5:17 PM EDT): - s/p left partial mastectomy 2017. Invasive ductal carcinoma. - most recent mammography 06/14/23 screening, showing left asymmetry. Additional imaging on 10/06/23 which showed benign finding. BI-RADS 2. - still on tamoxifen - previously following with [facility] oncology, last seen in 2018 - will check whether patient needs to be on tamoxifen and refer patient back to [facility] On[facility] Assessment & Plan (12/18/2023 12:46 PM EDT): - s/p lumpectomy in 2017 - most recent mammography 06/14/23 screening, showing left asymmetry. Additional imaging on 10/06/23 which showed benign finding. BI-RADS 2. - continue tamoxifen - previously following with [facility] breast cancer clinic Assessment & Plan (09/22/2023 8:39 AM EDT): - s/p lumpectomy in 2017 - continue tamoxifen - previously following with [facility] breast cancer clinic - reminded about need for follow up mammo. 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 Type 2 diabetes mellitus 12/29/2020 Assessment & Plan (03/15/2024 12:39 PM EDT): - Dx > 20 years - Hgb A1C 8.8% on 03/15/24 - Following with [facility], last seen on 12/16/23 - Continue [...] A1C 8.9% on 12/16/23 - Following with [facility], last seen on 12/16/23 - Continue [...] A1C 9.8% on 09/20/23 - Following with [facility] - Continue working on lifestyle modifications [...] - Hgb A1C 9.2% - Following with [facility] End[facility] - Continue working on lifestyle modifications [...] goal < 130/84 -Co-managed with our pharmacist, dye penetrant testing technician, and asparagus cutter -BP borderline today -Continue working on lifestyle [...] goal < 130/84 -Co-managed with our pharmacist, dye penetrant testing technician, and asparagus cutter -BP almost at goal -Continue working on [...] (12/18/2023 12:48 PM EDT): - following with [facility] - needs to reconcile medications Assessment & Plan (05/27/2023 1:11 PM EST): - following with [facility] - needs to reconcile medications Hyperlipidemia 10/06/2011 [...] Refill [facility] [address] [place] [address] Nai Randall MD 05/31/2024 Orders Only GENERIC EXTERNAL DATA DEPARTMENT Provider, Generic External Data 05/11/2024 Refill [facility] [address], [place] [address] Nai Randall MD 05/03/2024 Refill [facility] [address], [place] [address] Nai Randall MD 04/16/2024 Refill [facility] [address], [place] [address] Nanette Travis RN 04/16/2024 Refill [facility] [address], [place] [address] Lois Ennis MD 04/14/2024 Refill [facility] [address], [place] [address] Lois Ennis MD 04/09/2024 Travel 04/06/2024 Telephone [facility] MEDICINE [address] [place] [address] Lois Ennis MD 04/03/2024 Orders Only [facility] [address], [place] [address] Lois Ennis MD Essential hypertension (Primary Dx); Type 2 diabetes mellitus with hyperglycemia, with long-term current use of insulin (CMS/[facility]) 03/23/2024 Telephone [facility] [address] [place] [address] Lois Ennis MD 03/20/2024 Orders Only [facility] [address] [place] [address] Lois Ennis MD Anemia due to stage 3b chronic kidney disease (CMS/HCC) (CMS/HCC) (Primary Dx) 03/20/2024 Telephone [facility] [address] [place] [address] Rema Dickinson RN Medication Question 03/15/2024 10:15 AM EDT Office Visit [facility] [address] [place] [address] Lois Ennis MD Alzheimer's disease ([facility]) (Primary Dx); Essential hypertension; Paroxysmal atrial fibrillation ([facility]); Stage 3b chronic kidney disease ([facility]); Type 2 diabetes mellitus with hyperglycemia, with long-term current use of insulin ([facility]); History of stroke with current residual effects; Encounter for immunization; Gastroesophageal reflux disease, unspecified whether esophagitis present; Gastroparesis; Menopause; 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[facility]); Malignant neoplasm of left female breast, unspecified estrogen receptor status, unspecified site of breast ([facility]); Long-term current use of tamoxifen 03/15/2024 Travel [...] 07/04/2024 9:00 AM EST Office Visit [facility] ADULT DENTAL [address] [place] [address] Shivani Pan 10/03/2024 2:00 PM EDT Medication Management [facility] [address] [place], [place] [phone] Jono Pérez, PharmD [address] [place] [address] Health Maintenance Due Date Last Done Comments [...] hyperglycemia, with long-term current use of insulin ([facility]) CBC WITH AUTO DIFFERENTIAL Routine 03/22/2024 11:11 AM EDT Anemia due to stage 3b chronic kidney disease ([facility]/HCC) ([facility]) VITAMIN B12/FOLATE, SERUM PANEL Routine 03/22/2024 11:11 AM EDT Type 2 diabetes mellitus with hyperglycemia, with long-term current use of insulin ([facility]) LIPID PANEL WITH REFLEX TO DIRECT LDL Routine 03/22/2024 11:11 AM EDT Type 2 diabetes mellitus with hyperglycemia, with long-term current use of insulin ([facility]) POCT GLYCATED HEMOGLOBIN, TOTAL Routine 03/15/2024 10:17 AM EDT Type 2 diabetes mellitus with hyperglycemia, with long-term current use of insulin ([facility]) POCT GLUCOSE Routine 03/15/2024 10:14 AM EDT Type 2 diabetes mellitus with hyperglycemia, with long-term current use of insulin ([facility]) DIABETES EYE EXAM Routine 10/07/2023 MAMMOGRAPHY Routine 10/06/2023 PANORAMIC RADIOGRAPHIC IMAGE Routine 03/11/2023 1:00 PM EDT from Last 3 Months or Most Recently Relevant to Health Maintenance Results * (ABNORMAL) Glucose, Whole Blood (05/31/2024 10:45 AM EST) Glucose, Whole Blood 204(H) 60 - 115 mg/dL [facility] Comment:METER #: [id number] 5Testing performed in the Endocrinology Department [address], [address], [facility]. 05/31/2024 10:4 5 AM EST 05/31/2024 10:51 AM EST us Generic External Data Provider LAB BLOOD ORDERAB LES Final Result [facility] [address] [place] [phone] * (ABNORMAL) Albumin, Random Urine W/Creatinine (03/22/2024 11:20 AM EDT) Creatinine, Urine 97.69 mg/dL [facility] Microalbumin Urine 420.0 mg/L [facility] Microalbum Creatinine Ratio Ur 429.9(H) <30 ug/mg cr [facility] Comment:Albumin/Creatinine R atio Reference Ranges: Normal: < 30 ug/mg creatinine Microalbuminuria: 30 - 300 ug/mg creatinineClinical Albuminuria: > 300 ug/mg creatinine Urine 03/22/2024 11:2 0 AM EDT 03/22/2024 1:18 PM EDT Lois Ennis MD LAB URINE ORDERABLES Final Resul t Performing Organization Address [facility] Co de Phone Number [facility] [address] [place] [address] [phone] * Vitamin B12 (Cobalamin) and Folate Panel, Serum (03/22/2024 11:11 AM EDT) Vitamin B12 857 200 - 900 pg/mL [facility] Comment:NORMAL 200-900 PG/ML INDETERMINATE 160-199 PG/ML DEFICIENT < 160 PG/ML Folate 15.9 > or = 4.0 ng/mL [facility] Comment:Reference Values:> o r = 4.0 ng/mL< 4.0 ng/mL suggests folate deficiency Methotrexate, aminopterin and folinic acid(leucovorin) are chemotherapeutic agents whose molecularstructures are similar to folate; therefore, the Architectfolate assay cannot be used for patients using these drugs. Blood 03/22/2024 11:1 1 AM EDT 03/22/2024 1:17 PM EDT Lois Ennis MD LAB BLOOD ORDERABLES Final Resul t Performing Organization Address [facility] Co de Phone Number [facility] [address] [place] [address] [phone] * (ABNORMAL) Lipid Panel with Reflex to Direct LDL (03/22/2024 11:11 AM EDT) Triglycerides 199(H) <150 mg/dL [facility] Comment:Desirable Triglyceri de: less than 150 mg/dLBorderline High Triglyceride 150-199 mg/dLHigh Triglyceride: 200-499 mg/dLVery High Triglyceride: greater than or equal to 5OO mg/dL Cholesterol 138 <200 mg/dL [facility] Comment:Desirable Cholestero l: less than 200 mg/dLBorderline High Cholesterol: 200-239 mg/dLHigh Cholesterol: greater than 239 mg/dL LDL Cholesterol Calculated 73 <100 mg/dL [facility] Comment:Desirable LDL: less than 100 mg/dLNear Optimal/Above Optimal LDL: 110- 129 mg/dLBorderline High LDL: 130-159 mg/dLHigh LDL: 160-189 mg/dLVery High LDL: greater than or equal to 190 mg/dL HDL Cholesterol 26(L) >40 mg/dL [facility] Comment:Desirable HDL: great er than 40 mg/dL Note: This HDL assay may give artificially low results in patients with liver disease. Blood 03/22/2024 11:1 1 AM EDT 03/22/2024 1:17 PM EDT us Lois Ennis MD LAB BLOOD ORDERABLES Final Resul t [facility] [address] [place] [phone] * (ABNORMAL) CBC auto differential (03/22/2024 11:11 AM EDT) White Blood Count 7.8 4.8 - 10.8 X10*3/uL [facility] Red Blood Count 4.24 4.20 - 5.50 X10*6/uL [facility] Hemoglobin 11.7(L) 12.0 - 16.0 g/dl [facility] Hematocrit 35.3(L) 37.0 - 47.0 % [facility] Mean Corpuscular Volume 83.3 80.0 - 98.0 fL [facility] Mean Corpuscular Hemoglobin 27.6 27.0 - 33.0 pg [facility] Mean Corpuscular HGB Conc 33.1 31.0 - 35.0 g/dl [facility] Red Cell Distribution Width 13.1 11.0 - 16.0 % [facility] Platelet Count 262 160 - 400 X10*3/uL [facility] Mean Platelet Volume 11.4 9.4 - 12.3 fL [facility] Neutrophils Percent Auto 65.6 45 - 73 % [facility] Imm Gran Pct Auto 0.9(H) 0.0 - 0.4 % [facility] Lymphocytes Percent Auto 25.0 20 - 40 % [facility] Monocytes Percent Auto 5.9 2 - 11 % [facility] Eosinophils Percent Auto 2.1 0 - 4 % [facility] Basophils Percent Auto 0.5 0 - 2 % [facility] NRBC Pct Auto 0.0 0.0 - 0.2 /100WBC [facility] Neutrophils Absolute Auto 5.1 2.0 - 8.3 x10*3/uL [facility] Imm Gran Abs Auto 0.07(H) 0.00 - 0.03 X10*3/uL [facility] Lymphocytes Absolute Auto 1.9 1.2 - 4.9 X10*3/uL [facility] Monocytes Absolute Auto 0.5 0.1 - 1.2 X10*3/uL [facility] Eosinophils Absolute Auto 0.2 0.0 - 0.4 X10*3/uL [facility] Basophils Absolute Auto 0.0 0.0 - 0.2 X10*3/uL [facility] NRBC Abs Auto 0.000 0.0 - 0.012 X10*3/uL [facility] Blood Venous blood specimen / Unknown 03/22/2024 11:11 AM EDT 03/22/2024 1:17 PM EDT us Lois Ennis MD LAB BLOOD ORDERABLES Final Resul t [facility] [address] [place] [phone] [phone] * (ABNORMAL) POCT HGB A1C (03/15/2024 [...] Exam (10/07/2023) Eye Exam Normal Normal Result [facility] Historical Provider HEALTH MAINTENANCE Final Result * Mammography (10/06/2023) Mammogram BIRADS 2 Normal, Abnormal, BIRADS 1 , BIRADS 2 Anatomical Region Laterality Modality Other 10/06/2023 Historical Provider HEALTH MAINTENANCE Final Result from Last 3 Months or Most Recently Relevant to Health Maintenance [facility] [address] [place] [phone] Advance Directives Documents on File Type Date Recorded 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
--- OUTSIDE RECORDS SUMMARY | 2024-06-15 11:50 | XMS_ITS | Encounter Summary ---
Author Organization [employer] Address [address] [facility] 7[address] [place] [address] Care Team Providers Care Matrix Worker Name Role Phone Lois Salazar MD Primary Care Provider [phone] Jono Pérez PharmD Unavailable [phone] Encounter Details Date Type Department Care Team (Late st Contact Info) Description 03/20/2024 Orders Only [facility] MEDIC[facility] [address], [place] [phone] Lois Salazar MD [address] [place], [place] [phone] Anemia due to stage 3b chronic kidney [...] 07/04/2024 9:00 AM EST Office Visit [facility] ADULT DENTAL [address] [place] [address] Shivani Pan 10/03/2024 2:00 PM EDT Medication Management [facility] [address] [place] [address] Jono Pérez, PharmD [address] [place] [address] documented as of this encounter Goals Goal Patient Goal Type Associated Problems Recent Progress Patient-Stated? Author Blood Pressure < 140/90 Blood Pressure 124/54( 024 2:07 PM EST) No Jono Pérez, PharmD documented as of this encounter Procedures Procedure Name Priority Date/Time Associated Diagnosis Comments CBC WITH AUTO DIFFERENTIAL Routine 03/22/2024 11:11 AM EDT Anemia due to stage 3b chronic kidney disease (CMS/HCC) ([facility]/HCC) documented in this encounter Results * (ABNORMAL) CBC auto differential (03/22/2024 11:11 AM EDT) White Blood Count 7.8 4.8 - 10.8 X10*3/uL [facility] Red Blood Count 4.24 4.20 - 5.50 X10*6/uL [facility] Hemoglobin 11.7(L) 12.0 - 16.0 g/dl [facility] Hematocrit 35.3(L) 37.0 - 47.0 % [facility] Mean Corpuscular Volume 83.3 80.0 - 98.0 fL [facility] Mean Corpuscular Hemoglobin 27.6 27.0 - 33.0 pg [facility] Mean Corpuscular HGB Conc 33.1 31.0 - 35.0 g/dl [facility] Red Cell Distribution Width 13.1 11.0 - 16.0 % [facility] Platelet Count 262 160 - 400 X10*3/uL [facility] Mean Platelet Volume 11.4 9.4 - 12.3 fL [facility] Neutrophils Percent Auto 65.6 45 - 73 % [facility] Imm Gran Pct Auto 0.9(H) 0.0 - 0.4 % [facility] Lymphocytes Percent Auto 25.0 20 - 40 % [facility] Monocytes Percent Auto 5.9 2 - 11 % [facility] Eosinophils Percent Auto 2.1 0 - 4 % [facility] Basophils Percent Auto 0.5 0 - 2 % [facility] NRBC Pct Auto 0.0 0.0 - 0.2 /100WBC [facility] Neutrophils Absolute Auto 5.1 2.0 - 8.3 x10*3/uL [facility] Imm Gran Abs Auto 0.07(H) 0.00 - 0.03 X10*3/uL [facility] Lymphocytes Absolute Auto 1.9 1.2 - 4.9 X10*3/uL [facility] Monocytes Absolute Auto 0.5 0.1 - 1.2 X10*3/uL [facility] Eosinophils Absolute Auto 0.2 0.0 - 0.4 X10*3/uL [facility] Basophils Absolute Auto 0.0 0.0 - 0.2 X10*3/uL [facility] NRBC Abs Auto 0.000 0.0 - 0.012 X10*3/uL [facility] Blood Venous blood specimen / Unknown 03/22/2024 11:11 AM EDT 03/22/2024 1:17 PM EDT us Lois Salazar MD LAB BLOOD ORDERABLES Final Resul t [facility] [address] [place] [address] [phone] documented in this encounter Visit Diagnoses Diagnosis Anemia due to stage 3b chronic kidney disease (CMS/HCC) (CMS/HCC)- Primary documented in this encounter Additional Health Concerns Assessment Noted Time PHQ-9 Depression Total Score: 2 09/20/19 24 9:42 AM EDT documented as of this encounter Care Teams Matrix Worker Relationship Specialty Start Date End Date Lois Salazar MD [address] [place] [phone] PCP - General Family Medicine 05/27/23 Jono Pérez, CharlesD [address] [place] [phone] Pharmacist Internal Medicine 07/04/23 documented as of this encounter
--- OUTSIDE RECORDS SUMMARY | 2024-06-15 11:50 | XMS_ITS | Clinical Summary ---
Author Organization [facility] Facility Address [address] [place] [address] Care Team Providers Care Real Time Analyst Name Role Phone Yesi Linares MD Primary Care Provider [phone] Medications amLODIPine (NORVASC) 10 MG tablet Take [...] patient's age to complete this topic Insurance [place] [employer] ([id number]) [place] [employer] ([id number] Care Teams Real Time Analyst Relationship Specialty Start Date End Date Yesi Linares MD [address] [place], [place] PCP - General 06/02/20
--- OUTSIDE RECORDS SUMMARY | 2024-06-15 11:50 | XMS_ITS | Encounter Summary ---
Author Organization [employer] Address 75 [facility] 7t [place] [address] Care Team Providers Care Clerical Adjudicator Name Role Phone Lois Salazar MD Primary Care Provider [phone] Jono Pérez PharmD Unavailable Reason for Visit * Reason Onset Date Comments Durable Medical Equipment 11/28/2023 Encounter Details Date Type Department Care Team ([facility] st Contact Info) Description 11/28/2023 Telephone [facility] MEDICINE 230 [place], [place] [phone] Lois Salazar MD 230 [place], [place] [phone] Durable Medical Equipment Social History Tobacco Use [...] Description 07/04/2024 9:00 AM EST Office Visit [facility] ADULT DENTAL 230 [place] [address] Shivani Pan 10/03/2024 2:00 PM EDT Medication Management [facility] MEDICINE 230 [place] [address] Jono Pérez PharmD 230 [place] [address] documented as of this encounter Goals Goal [...] documented as of this encounter Care Teams Clerical Adjudicator Relationship Specialty Start Date End Date Lois Salazar MD [address] [place] [address] PCP - General Family Medicine 05/27/23 Jono Pérez, PharmD [address] [place] [address] [place] [address] Pharmacist Internal Medicine 07/04/23 documented as of this encounter
--- OUTSIDE RECORDS SUMMARY | 2024-06-15 11:51 | XMS_ITS | Encounter Summary ---
Author Organization [employer] Address 75 [facility] 7t [place] [address] Care Team Providers Care Foreign Languages Professor Name Role Phone Lois Salazar MD Primary Care Provider [phone] Jono Pérez PharmD Unavailable [phone] Encounter Details Date Type Department Care Team (Late st Contact Info) Description 10/05/2023 Orders Only [facility] MEDICINE 230 [place], [place] [phone] Lois Salazar MD 230 [place], [place] [phone] Social History Tobacco Use Types Packs/Day Years [...] Description 07/04/2024 9:00 AM EST Office Visit [facility] ADULT DENTAL 230 [place] [address] Shivani Pan 10/03/2024 2:00 PM EDT Medication Management [facility] MEDICINE 230 [place] [address] Jono Pérez PharmD 230 [place] [address] documented as of this encounter Goals Goal [...] documented as of this encounter Care Teams Foreign Languages Professor Relationship Specialty Start Date End Date Lois Salazar MD [address] [place] [address] PCP - General Family Medicine 05/27/23 Jono Pérez PharmD [address] [place] [address] Pharmacist Internal Medicine 07/04/23 documented as of this encounter
--- OUTSIDE RECORDS SUMMARY | 2024-06-15 11:51 | XMS_ITS | Encounter Summary ---
Author Organization [employer] [facility] Address 75 [facility] 7t [place] [address] Care Team Providers Care Insurance Appraiser Name Role Phone Lois Salazar MD Primary Care Provider [phone] Jono Pérez PharmD Unavailable [phone] Encounter Details Date Type Department Care Team (Late Contact Info) Description 12/20/2022 Telephone [facility] ADULT DENTAL 230 [place] [address] [place] DDS 230 [place] [address] Social History Tobacco Use Types Packs/Day Years [...] [facility] ADULT DENTAL 230 [place] [address] PanShae kaysa 10/03/2024 2:00 PM EDT Medication Management [facility] MEDICINE 230 [place] [address] Jono Pérez, PharmD 230 [place] [address] documented as of this encounter Visit Diagnoses Not on filedocumented in this encounter Care Teams Insurance Appraiser Relationship Specialty Start Date End Date Lois Salazar MD [address] [place] [address] PCP - General Family Medicine 05/27/23 Jono Pérez, PharmD [address] [place] [address] Pharmacist Internal Medicine 07/04/23 documented as of this encounter
--- OUTSIDE RECORDS SUMMARY | 2024-06-15 11:51 | XMS_ITS | Encounter Summary ---
Author Organization [facility] [facility] Address [address] [place] [address] 7 [place] [address] Care Team Providers Care Chief Operator Name Role Phone Lois Salazar MD Primary Care Provider [phone] Jono Pérez PharmD Unavailable [phone] Reason for Referral * Consultation (Routine) - Closed Specialty Diagnoses / Procedures Referred By Marta flores Referred To Contact Pharmacy Diagnoses Acute ischemic stroke (CMS/HCC) Xiomara Addison, PharmD 230 [place] [address] Phone: tel: fax: Referral ID Status Reason Start Date Expiration Date V isits Requested Visits Authorized [id number] Closed Continuity of Care 09/15/2023 09/14/2024 1 1 Encounter Details Date Type Department Care Team (Late st Contact Info) Description 09/15/2023 Orders Only [facility] MEDICINE 230 [place], [place] [phone] Xiomara Addison, PharmD 230 [place], [place] [phone] Acute ischemic stroke (CMS/HCC) (Primary Dx) Social [...] Description 07/04/2024 9:00 AM EST Office Visit [facility] ADULT DENTAL 230 [place] [address] Shivani Pan 10/03/2024 2:00 PM EDT Medication Management [facility] MEDICINE [address] [place] [address] Jono Pérez PharmD 230 [place] [address] Scheduled Referrals Name Type Priority Associated Diagnoses [...] infarction documented in this encounter Care Teams Chief Operator Relationship Specialty Start Date End Date Lois Salazar MD [address] [place] [address] PCP - General Family Medicine 05/27/23 Jono Pérez, Mitch [address] [place] [address] Pharmacist Internal Medicine 07/04/23 documented as of this encounter
--- OUTSIDE RECORDS SUMMARY | 2024-06-15 11:51 | XMS_ITS | Encounter Summary ---
Author Organization [employer] [facility] Address 75 [facility] 7t [place] [address] Care Team Providers Care Profiling Machine Set Up Operator Name Role Phone Lois Salazar MD Primary Care Provider [phone] Jono Pérez PharmD Unavailable [phone] Reason for Visit * Reason Onset Date Comments insurance 05/12/2023 Encounter Details Date Type Department Care Team ([facility] Contact Info) Description 05/12/2023 Telephone [facility] ADULT DENTAL 230 [place] [address] [place] DDS 230 [place] [address] insurance Social History Tobacco Use Types Packs/Day [...] 07/04/2024 9:00 AM EST Office Visit [facility] ADULT DENTAL 230 [place], [place] [phone] PanShivani 10/03/2024 2:00 PM EDT Medication Management [facility] MEDICINE 230 [place] [address] Jono Pérez, PharmD 230 [place] [address] documented as of this encounter Visit Diagnoses Not on filedocumented in this encounter Care Teams Profiling Machine Set Up Operator Relationship Specialty Start Date End Date Lois Salazar MD [address] [place] [address] [phone] PCP - General Family Medicine 05/27/23 Jono Pérez, PharmD [address] [place] [address] [phone] Pharmacist Internal Medicine 07/04/23 documented as of this encounter
--- OUTSIDE RECORDS SUMMARY | 2024-06-15 11:51 | XMS_ITS | Encounter Summary ---
Author Organization [employer] [facility] Address [address] [place] [address] 7t [place] [address] Care Team Providers Care Associate Professor Of Church Music Name Role Phone Lois Salazar MD Primary Care Provider [phone] Jono Pérez PharmD Unavailable [phone] Encounter Details Date Type Department Care Team ([facility] Contact Info) Description 03/04/2023 Abstract [facility] ADULT DENTAL 230 [place] [address] Tr [place] DDS [address] [place] [address] Social History Tobacco Use Types Packs/Day Years [...] Upcoming Encounters Date Type Department Care Team ([facility] Contact Info) Description 07/04/2024 9:00 AM EST Office Visit [facility] ADULT DENTAL 230 [place] [address] Shivani Pan 10/03/2024 2:00 PM EDT Medication Management [facility] MEDICINE [address] [place] [address] Jono Pérez, PharmD 230 [place] [address] documented as of this encounter Visit Diagnoses Not on filedocumented in this encounter Care Teams Associate Professor Of Church Music Relationship Specialty Start Date End Date Lois Salazar MD 230 [place], [place] [phone] PCP - General Family Medicine 05/27/23 Jono Pérez, Mitch 230 [place] [address] Pharmacist Internal Medicine 07/04/23 documented as of this encounter
--- OUTSIDE RECORDS SUMMARY | 2024-06-15 11:51 | XMS_ITS | Encounter Summary ---
Author Organization [employer] [facility] Address 75 [facility] 7t [place] [address] Care Team Providers Care Application Support Intern Name Role Phone Lois Salazar MD Primary Care Provider Jono Pérez PharmD Unavailable [phone] Encounter Details Date Type Department Care Team (Late st Contact Info) Description 07/23/2022 Abstract [facility] ADULT DENTAL 230 [place], [place] [phone] Angie Bean DDS 230 [place], [place] [phone] Social History Tobacco Use Types Packs/Day Years [...] 07/04/2024 9:00 AM EST Office Visit [facility] ADULT DENTAL 230 [place], [place] [phone] Shivani Pan 10/03/2024 2:00 PM EDT Medication Management [facility] MEDICINE 230 [place], [place] [phone] Jono Pérez, PharmD 230 [place] [address] documented as of this encounter Visit Diagnoses Not on filedocumented in this encounter Care Teams Application Support Intern Relationship Specialty Start Date End Date Lois Salazar MD [address] [place] [address] PCP - General Family Medicine 05/27/23 Jono Pérez, Mitch [address] [place] [address] Pharmacist Internal Medicine 07/04/23 documented as of this encounter
--- OUTSIDE RECORDS SUMMARY | 2024-06-15 11:51 | XMS_ITS | Encounter Summary ---
Author Organization [employer] [facility] Address [address] [place] [address] 7t [place] [address] Care Team Providers Care Linux Developer Name Role Phone Lois Salazar MD Primary Care Provider Jono Pérez PharmD Unavailable [phone] Encounter Details Date Type Department Care Team ([facility] Contact Info) Description 08/22/2023 Telephone [facility] MEDICINE [address] [place] [address] [phone] Lois Salazar MD [address] [place] [address] [phone] Social History Tobacco Use Types Packs/Day Years [...] Upcoming Encounters Date Type Department Care Team ([facility] Contact Info) Description 07/04/2024 9:00 AM EST Office Visit [facility] ADULT DENTAL [address] [place] [address] [phone] Shivani Pan 10/03/2024 2:00 PM EDT Medication Management [facility] MEDICINE [address] [place] [address] Jono Pérez, PharmD 230 [place] [address] documented as of this encounter Goals Goal Patient Goal Type Associated Problems Recent Progress Patient-Stated? Author Blood Pressure < 140/90 Blood Pressure 124/54( 024 2:07 PM EST) No Jono Pérez, PharmBlane documented as of this encounter Visit Diagnoses Not on filedocumented in this encounter Care Teams Linux Developer Relationship Specialty Start Date End Date Lois Salazar MD [address] [place] [address] PCP - General Family Medicine 05/27/23 Jono Pérez, PharmD [address] [place] [address] Pharmacist Internal Medicine 07/04/23 documented as of this encounter
--- OUTSIDE RECORDS SUMMARY | 2024-06-15 11:51 | XMS_ITS | Encounter Summary ---
Author Organization [employer] [facility] Address 75 [facility] 7t [place] [address] Care Team Providers Care Bottle Gauger Name Role Phone Lois Salazar MD Primary Care Provider [phone] Jono Pérez PharmD Unavailable [phone] Encounter Details Date Type Department Care Team (Latest Contact Info) Description 03/21/2019 Abstract [facility] CONVERSIONS Dental, Provider, DDS Social History Tobacco [...] Description 07/04/2024 9:00 AM EST Office Visit [facility] ADULT DENTAL 230 [place] [address] Shivani Pan 10/03/2024 2:00 PM EDT Medication Management [facility] MEDICINE 230 [place] [address] Jono Pérez, PharmD 230 [place] [address] documented as of this encounter Visit Diagnoses Not on filedocumented in this encounter Care Teams Bottle Gauger Relationship Specialty Start Date End Date Lois Salazar MD 230 [place] [address] PCP - General Family Medicine 05/27/23 PérezJono PharmD [address] [place] [address] Pharmacist Internal Medicine 07/04/23 documented as of this encounter
--- OUTSIDE RECORDS SUMMARY | 2024-06-15 11:51 | XMS_ITS | Encounter Summary ---
Author Organization [employer] [facility] Address [address] [place] [address] 7t [place] [address] Care Team Providers Care Preparation Supervisor Freezing Name Role Phone Lois Salazar MD Primary Care Provider Jono Pérez PharmD Unavailable [phone] Reason for Visit * Reason Comments Med Refill Encounter Details Date Type Department Care Team (Late st Contact Info) Description 07/04/2023 Refill [facility] MEDICINE 230 [place], [place] [phone] Lois Salazar MD 230 [place], [place] [phone] Social History Tobacco Use Types Packs/Day Years [...] 9:00 AM EST Office Visit [facility] ADULT DENTAL 230 [place], [place] [phone] Shivani Pan 10/03/2024 2:00 PM EDT Medication Management [facility] MEDICINE 230 [place], [place] [phone] Jono Pérez, PharmD 230 [place], [place] [phone] documented as of this encounter Goals Goal Patient Goal Type Associated Problems Recent Progress Patient-Stated? Author Blood Pressure < 140/90 Blood Pressure 124/54( 024 2:07 PM EST) No Jono Pérez, PharmBlane documented as of this encounter Visit Diagnoses Not on filedocumented in this encounter Care Teams Preparation Supervisor Freezing Relationship Specialty Start Date End Date Lois Salazar MD 230 [place] [address] PCP - General Family Medicine 05/27/23 Jono Pérez, PharmD 230 [place] [address] Pharmacist Internal Medicine 07/04/23 documented as of this encounter
--- OUTSIDE RECORDS SUMMARY | 2024-06-15 11:51 | XMS_ITS | Encounter Summary ---
Author Organization [employer] [facility] Address 75 [facility] 7t [place] [address] Care Team Providers Care Advertising Job Titles Name Role Phone Lois Salazar MD Primary Care Provider Jono Pérez PharmD Unavailable [phone] Encounter Details Date Type Department Care Team (Late st Contact Info) Description 07/23/2022 Abstract [facility] ADULT DENTAL 230 [place], [place] [phone] Angie Bean DDS 230 [place], [place] [phone] Social History Tobacco Use Types Packs/Day Years [...] Description 07/04/2024 9:00 AM EST Office Visit [facility] ADULT DENTAL 230 [place], [place] [phone] Shivani Pan 10/03/2024 2:00 PM EDT Medication Management [facility] MEDICINE 230 [place], [place] [phone] Jono Pérez, PharmD 230 [place] [address] documented as of this encounter Visit Diagnoses Not on filedocumented in this encounter Care Teams Advertising Job Titles Relationship Specialty Start Date End Date Lois Salazar MD [address] [place] [address] PCP - General Family Medicine 05/27/23 Jono Pérez, Mitch [address] [place] [address] Pharmacist Internal Medicine 07/04/23 documented as of this encounter
--- OUTSIDE RECORDS SUMMARY | 2024-06-15 11:51 | XMS_ITS | Encounter Summary ---
Author Organization [employer] [facility] Address 75 [facility] 7t [place] [address] Care Team Providers Care Restaurant Manager Name Role Phone Lois Salazar MD Primary Care Provider [phone] Jono Pérez PharmD Unavailable [phone] Encounter Details Date Type Department Care Team (Latest Contact Info) Description 02/10/2022 Abstract [facility] CONVERSIONS Dental, Provider, DDS Social History Tobacco [...] Description 07/04/2024 9:00 AM EST Office Visit [facility] ADULT DENTAL [address] [place] [address] Shivani Pan 10/03/2024 2:00 PM EDT Medication Management [facility] MEDICINE [address] [place] [address] Jono Pérez, PharmD 230 [place] [address] documented as of this encounter Visit Diagnoses Not on filedocumented in this encounter Care Teams Restaurant Manager Relationship Specialty Start Date End Date Lois Salazar MD 230 [place] [address] PCP - General Family Medicine 05/27/23 Jono Pérez, PharmD 230 [place] [address] Pharmacist Internal Medicine 07/04/23 documented as of this encounter
--- OUTSIDE RECORDS SUMMARY | 2024-06-15 11:51 | XMS_ITS | Encounter Summary ---
Author Organization [employer] Address 75 [facility] 7t [place] [address] Care Team Providers Care Stereo Plotter Operator Name Role Phone Lois Salazar MD Primary Care Provider [phone] Jono Pérez PharmD Unavailable [phone] Reason for Visit * Reason Comments Med Refill Encounter Details Date Type Department Care Team ([facility] st Contact Info) Description 06/06/2024 Refill [facility] MEDICINE 230 [place], [place] [phone] Nai Randall MD 230 [place], [place] [phone] Social History Tobacco Use Types Packs/Day Years [...] 9:00 AM EST Office Visit [facility] ADULT DENTAL [address] [place] [address] Shivani Pan 10/03/2024 2:00 PM EDT Medication Management [facility] MEDICINE [address] [place] [address] Jono Pérez PharmD [address] [place] [address] documented as of this encounter Goals Goal [...] documented as of this encounter Care Teams Stereo Plotter Operator Relationship Specialty Start Date End Date Lois Salazar MD [address] [place] [address] PCP - General Family Medicine 05/27/23 Jono Pérez PharmD [address] [place] [address] Pharmacist Internal Medicine 07/04/23 documented as of this encounter
--- OUTSIDE RECORDS SUMMARY | 2024-06-15 11:51 | XMS_ITS | Encounter Summary ---
Author Organization [employer] [facility] Address 75 [facility] 7[place] [address] Care Team Providers Care Hobber Name Role Phone Lois Salazar MD Primary Care Provider [phone] Jono Pérez PharmD Unavailable [phone] Encounter Details Date Type Department Care Team (Latest Contact Info) Description 03/03/2021 Abstract [facility] CONVERSIONS Dental, Provider, DDS Social [...] [facility] 230 [place] [address] Shivani Pan 10/03/2024 2:00 PM EDT Medication Management [facility] MEDICINE 230 [place] [address] Jono Pérez, PharmD 230 [place] [address] documented as of this encounter Visit Diagnoses Not on filedocumented in this encounter Care Teams Hobber Relationship Specialty Start Date End Date Lois Salazar MD 230 [place] [address] PCP - General Family Medicine 05/27/23 Jono Pérez, PharmD 230 [place] [address] Pharmacist Internal Medicine 07/04/23 documented as of this encounter
[2024-06-15 12:32] LABS: Anion Gap 14 (12-20); Blood Urea Nitrogen 32 mg/dL (9-16); Calcium 9.6 mg/dL (8.4-10.2); Carbon Dioxide 22 mmol/L (22-29); Chloride 109 mmol/L (96-108); Estimated Glomerular Filt Rate 33; Glucose Random 294 mg/dL (60-115); Potassium 4.6 mmol/L (3.3-5.1); Sodium 140 mmol/L (135-145)
== END 2024-06-15 10:30 | disposition home or self-care (01) ==
LOC: HO.10HDL 10:29
PROVIDERS: Visit Provider Internal Medicine Hypertension Specialist
DX: I12.9 Hypertensive chronic kidney disease with stage 1 through stage 4 chronic kidney disease, or unspecified chronic kidney disease (principal); E11.22 Type 2 diabetes mellitus with diabetic chronic kidney disease; N18.30 Chronic kidney disease, stage 3 unspecified; E66.9 Obesity, unspecified; Z79.4 Long term (current) use of insulin; Z79.899 Other long term (current) drug therapy
CPT/HCPCS: 36415; 80048; 99212

== ENCOUNTER 2024-07-02 10:00 | Outpatient (AMB) | payer OTHER, SELFPAY ==
[2024-07-02 10:01] VITALS: BP 124/82; PULSE 62; BMI 32.4
--- NOTE | 2024-07-02 10:01 | MHC.OFFVIS ---
Vital Signs 07/02/24 10:01 Height 5 ft 3 in Weight 182 lb 15.739 oz BMI 32.4 BP 124/82 Blood Pressure Location Lt brachial Position Sitting Pulse 62 Intake Visit Reasons: r/s 04/05/24 1 yr followup w/ekg Intake Note: 1 year follow-up with ekg feeling ok c/o pain in abdomin General Merchandise Salesperson Required: Yes General Merchandise Salesperson Services: General Merchandise Salesperson Present General Merchandise Salesperson Name: saqib Kahn Information Technology Specialist: Information Technology Specialist Present Allergies JERMAINE Inhibitors [JERMAINE INHIBITORS] Adverse Reaction (Intermediate, Verified 06/15/24 10:13) COUGH lactose [LACTOSE] Adverse Reaction (Intermediate, Verified 06/15/24 10:13) GI DISCOMFORT HPI Comments Details: Catherine comes for follow-up accompanied by her daughter. History was obtained with help of range manager. Patient has no cardiac symptoms to report. Denies any symptoms of prolonged palpitation irregular heartbeat. Denies any exertional chest pain or chest pain otherwise. Denies any worsening shortness of breath, orthopnea, PND, leg edema. Denies lightheadedness, syncope. No bleeding issues or neurologic events, taking all her medications [facility] Medical History CKD (chronic kidney disease) stage 3, GFR 30-59 ml/min Acute stroke due to ischemia Abdominal bloating Elevated TSH Preoperative clearance Bilateral leg pain Urticaria Obesity (BMI 30-39.9) Diabetic nephropathy associated with type 2 diabetes mellitus Nausea and vomiting Microalbuminuria due to type 2 diabetes mellitus Paroxysmal atrial fibrillation Slurred speech History of endometrial cancer Depression Iron deficiency anemia History of left breast cancer Hypothyroidism Schizophrenia 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 Mother Diabetes mellitus Heart disease Social History Household Members: None Household Members Other:: Kajal Menendez [phone] Housing: Apartment Do you presently have visiting nurse or other home services: Yes Alcohol intake: never Comment: constant towerman Patient Tobacco Use Status: Never used Tobacco e-Cigarette/Vaping Use: Never Used Second Hand Smoke Exposure: No service: No Current occupational status: disabled Cognitive needs: Yes Hearing needs: No Vision needs: Yes Review of Systems Const Denies chills, Denies fatigue, Denies fever(s), Denies frequent falls, Denies weakness, Denies weight gain and Denies weight loss ENT Denies dizziness Card Denies chest pain, Denies leg edema, Denies lightheadedness, Denies palpitations, Denies dyspnea, Denies dyspnea on exertion, Denies orthopnea and Denies other (loss of consciousness) Resp Denies cough, Denies dyspnea and Denies dyspnea on exertion GI Denies hematochezia and Denies change in stool character Musc Denies abnormal gait, Denies muscle weakness, Denies numbness, Denies radiating pain into limb and Denies tingling Neuro Denies abnormal gait, Denies dizziness, Denies frequent falls, Denies numbness, Denies tingling and Denies weakness Endo Denies fatigue and Denies palpitations Physical Exam Vital Signs: Last Vital Signs Pulse 62 07/02/24 10:01 BP 124/82 07/02/24 10:01 BMI result Body Mass Index 32.4 Const General: cooperative, comfortable, alert and awake Nutritional Appearance: obese centrally obese Orientation/consciousness: patient oriented x3 Limitations: ambulation with cane Neck Neck: Yes trachea midline, Yes supple and Yes no JVD Resp Effort & Inspection: normal respiratory effort Auscultation: clear to auscultation bilaterally Cardio Jugular venous distension: no JVD Palpation: normal PMI Rate: regular rate Rhythm: regular rhythm Heart sounds: S1 normal heart sound present and S2 normal heart sound present GI Auscultation: normal bowel sounds Skin General skin exam: no rashes or lesions noted Neuro General: patient oriented x3 and no focal motor deficits Extrem General: No clubbing, No cyanosis and Yes pedal edema Psych Appearance: grossly normal Office Procedures EKG Details: EKG shows normal sinus rhythm with low-voltage QRS with poor R-wave progression most likely due to lead placement [id number], Complete Quality Reporting (2019) Adult ([facility] 138/07/14/68) Smoking risk assessment performed?: Yes Patient Tobacco Use Status: Never used Tobacco Assessment & Plan Assessment & Plan (1) Paroxysmal atrial fibrillation: Code(s): I48.0 - Paroxysmal atrial fibrillation Category: Medical Plan: Symptomatic paroxysmal atrial fibrillation this elderly woman which has remained suppressed on metoprolol therapy. She was done well with rhythm control approach will continue pursue rhythm control approach. Continue metoprolol therapy. No indication for antiarrhythmic drug therapy at this point time. Continue full oral anticoagulation, currently on Eliquis 5 mg b.i.d.. Need to continue monitor renal function closely and being followed by Nephrology. If her creatinine remains above 1.5 and after age 80 she will need to reduce her Eliquis dose to 2.5 mg b.i.d.. Avoidance of stimulants was discussed. Advised to call me with any new symptoms. (2) Hypertension: Code(s): I10 - Essential (primary) hypertension Category: Medical Qualifiers: Hypertension type: essential hypertension Qualified Code(s): I10 - Essential (primary) hypertension Plan: Hypertension without signs or symptoms of heart failure. Blood pressure is currently well optimized advised to monitor blood pressure at home maintain a log. Importance of medical therapy was discussed. She understands agrees. Will follow up in the clinic in 1 year's time, sooner p.r.n.. Thank you for allowing me to partake in his care Coding Level of Care Code Est Pt Level 4 (95290) Complex EM visit Add On G2211 Diagnoses Paroxysmal atrial fibrillation I48.0 Essential hypertension I10 Hypertension type: essential hypertension CPT Codes EKG - CPT: 55568-Ioeceycuapxdmowaz, Complete ([id number])
== END 2024-07-02 10:34 | disposition home or self-care (01) ==
PROVIDERS: PCP Family Medicine; Visit Provider Internal Medicine Cardiovascular Disease
DX: I48.0 Paroxysmal atrial fibrillation (principal); I10 Essential (primary) hypertension
CPT/HCPCS: 93010; 99214; G2211

== ENCOUNTER → 2024-07-02 10:00 | Outpatient (BNVA) | payer OTHER, SELFPAY | PROVIDERS: PCP Family Medicine; Visit Provider Internal Medicine Cardiovascular Disease | DX: I48.0 Paroxysmal atrial fibrillation (principal); I10 Essential (primary) hypertension; R94.31 Abnormal electrocardiogram [ECG] [EKG] | CPT/HCPCS: 93005; 99212 ==

== ENCOUNTER 2024-07-05 10:38 | Outpatient (REF) | payer OTHER, SELFPAY ==
--- NOTE | ~2024-07-05 | MM_ITS ---
EXAMINATION: DXA BONE DENSITY AXIAL HISTORY: Estrogen deficiency TECHNIQUE: [employer] Dual energy absorptiometry (DEXA) of the lumbar spine, total left hip, and femoral neck was performed. COMPARISON: Comparison is made with the prior examination dated 12/10/2016. FINDINGS: The bone mineral density of the lumbar spine is 1.460 with a T-score of 2.3, and a Z-score of 3.3. This represents a BMD change of 10.4% compared to the prior exam. This is statistically significant. The bone mineral density of the left total hip is 0.986 with a T-score of -0.2, and a Z-score of 1.2. This represents BMD change of -4.4% compared to the prior exam. This is statistically significant. The bone mineral density of the left femoral neck is 0.897 with a T-score of -1.0, and a Z-score of 0.5. This represents BMD change of 11.4% compared to the prior exam. MM/XR DEXA axial skeleton IMPRESSION: Based on bone mineral density, and according to World Health Organization (WHO) criteria, the diagnosis is consistent with normal bone mineral density. All bone density values are in grams per centimeter squared (g/cm2). Statistically, 68% of repeat scans fall within 1 SD (+/- 0.010 g/cm2 for AP spine L1-L4) and 1 SD (+/- 0.012 g/cm2 for femur total) FRAX is a trademark of the [employer] [facility], a World Health Organization (WHO) Collaborating Center. Electronically signed by: David Garcia MD 07/05/2024 11:45 AM [facility]
--- OUTSIDE RECORDS SUMMARY | 2024-07-05 11:19 | XMS_ITS | Encounter Summary ---
Author Organization [employer] [facility] Address [address] [place] [address] [address] [place] [address] Care Team Providers Care Orthotist Prosthetist Name Role Phone Lois Salazar MD Primary Care Provider [phone] Jono Pérez PharmD Unavailable [phone] Encounter Details Date Type Department Care Team (Late Contact Info) Description 03/04/2023 Abstract [facility] ADULT DENTAL [address] [place] [address] [place] DDS [address] [place] [address] Social History Tobacco Use Types Packs/Day Years [...] Department Care Team (Late Contact Info) Description 08/07/2024 10:30 AM EDT Office Visit [facility] ADULT DENTAL [address] [place] [address] [place] DDS [address] [place] [address] 10/03/2024 2:00 PM EDT Medication Management [facility] MEDICINE [address] [place] [address] Jono Pérez, PharmD [address] [place] [address] documented as of this encounter Visit Diagnoses Not on filedocumented in this encounter Care Teams Orthotist Prosthetist Relationship Specialty Start Date End Date Lois Salazar MD [address] [place] [address] PCP - General Family Medicine 05/27/23 Jono Pérez, CharlesD [address] [place] [phone] Pharmacist Internal Medicine 07/04/23 documented as of this encounter
--- OUTSIDE RECORDS SUMMARY | 2024-07-05 11:19 | XMS_ITS | Encounter Summary ---
Author Organization [employer] [facility] Address [address] [facility] [address] [place] [address] Care Team Providers Care Card Game Operator Name Role Phone Lois Salazar MD Primary Care Provider [phone] Jono Pérez PharmD Unavailable [phone] Encounter Details Date Type Department Care Team (Latest Contact Info) Description 03/03/2021 Abstract [facility] CONVERSIONS Dental, Provider, DDS Social History Tobacco [...] Care Team (Late st Contact Info) Description 08/07/2024 10:30 AM EDT Office Visit [facility] ADULT DENTAL [address] [place] [address] [place] DDS [address] [place] [address] 10/03/2024 2:00 PM EDT Medication Management [facility] MEDICINE [address] [place] [address] Jono Pérez, PharmD [address] [place] [address] documented as of this encounter Visit Diagnoses Not on filedocumented in this encounter Care Teams Card Game Operator Relationship Specialty Start Date End Date Lois Salazar MD [address] [place] [address] PCP - General Family Medicine 05/27/23 Jono Pérez, PharmD [address] [place], [place] [address] [address] Pharmacist Internal Medicine 07/04/23 documented as of this encounter
--- OUTSIDE RECORDS SUMMARY | 2024-07-05 11:19 | XMS_ITS | Encounter Summary ---
Author Organization [employer] [facility] Address [address] [place] [address] [address] [place] [phone] Care Team Providers Care Returned Goods Repairer Name Role Phone Lois Salazar MD Primary Care Provider Jono Pérez PharmD Unavailable [phone] Reason for Visit * Reason Comments Med Refill Encounter Details Date Type Department Care Team (Late st Contact Info) Description 07/04/2023 Refill [facility] MEDICINE [address] [place], [place] [phone] Lois Salazar MD [address] [place], [place] [phone] Social History Tobacco Use Types Packs/Day Years [...] Description 08/07/2024 10:30 AM EDT Office Visit [facility] ADULT DENTAL [address] [place], [place] [phone] [place] DDS [address] [place], [place] [phone] 10/03/2024 2:00 PM EDT Medication Management [facility] MEDICINE [address] [place], [place] [phone] Jono Pérez, PharmD [address] [place] [address] documented as of this encounter Goals Goal Patient Goal Type Associated Problems Recent Progress Patient-Stated? Author Blood Pressure < 140/90 Blood Pressure 148/80( 025 9:17 AM EST) No Jono Pérez, Mitch documented as of this encounter Visit Diagnoses Not on filedocumented in this encounter Care Teams Returned Goods Repairer Relationship Specialty Start Date End Date Lois Salazar MD [address] [place] [address] PCP - General Family Medicine 05/27/23 Jono Pérez PharmD [address] [place] [phone] Pharmacist Internal Medicine 07/04/23 documented as of this encounter
--- OUTSIDE RECORDS SUMMARY | 2024-07-05 11:19 | XMS_ITS | Encounter Summary ---
Author Organization [employer] Address [address] [facility] 7t [place] [address] Care Team Providers Care Respiratory Care Technician Name Role Phone Lois Salazar MD Primary Care Provider [phone] Jono Pérez PharmD Unavailable [phone] Encounter Details Date Type Department Care Team (Late st Contact Info) Description 03/20/2024 Orders Only [facility] MEDICINE [address] [place], [place] [phone] Lois Salazar MD [address] [place], [place] [phone] Anemia due to stage 3b chronic kidney [...] Description 08/07/2024 10:30 AM EDT Office Visit [facility] ADULT DENTAL [address] [place] [address] rT Lake DDS [address] [place] [address] 10/03/2024 2:00 PM EDT Medication Management [facility] MEDICINE [address] [place] [address] Jono Pérez PharmD [address] [place] [address] documented as of this encounter Goals Goal Patient Goal Type Associated Problems Recent Progress Patient-Stated? Author Blood Pressure < 140/90 Blood Pressure 148/80( 025 9:17 AM EST) No Jono Pérez, PharmD documented as of this encounter Procedures Procedure Name Priority Date/Time Associated Diagnosis Comments CBC WITH AUTO DIFFERENTIAL Routine 03/22/2024 11:11 AM EDT Anemia due to stage 3b chronic kidney disease (CMS/HCC) (CMS/HCC) documented in this encounter Results * (ABNORMAL) CBC auto differential (03/22/2024 11:11 AM EDT) White Blood Count 7.8 4.8 - 10.8 X10*3/uL [facility] Red Blood Count 4.24 4.20 - 5.50 X10*6/uL [facility] Hemoglobin 11.7(L) 12.0 - 16.0 g/dl [facility] Hematocrit 35.3(L) 37.0 - 47.0 % [facility] Mean Corpuscular Volume 83.3 80.0 - 98.0 fL [facility] Mean Corpuscular Hemoglobin 27.6 27.0 - 33.0 pg [facility] Mean Corpuscular HGB Conc 33.1 31.0 - 35.0 g/dl [facility] Red Cell Distribution Width 13.1 11.0 - 16.0 % [facility] Platelet Count 262 160 - 400 X10*3/uL [facility] Mean Platelet Volume 11.4 9.4 - 12.3 fL [facility] Neutrophils Percent Auto 65.6 45 - 73 % [facility] Imm Gran Pct Auto 0.9(H) 0.0 - 0.4 % [facility] Lymphocytes Percent Auto 25.0 20 - 40 % [facility] Monocytes Percent Auto 5.9 2 - 11 % [facility] Eosinophils Percent Auto 2.1 0 - 4 % [facility] Basophils Percent Auto 0.5 0 - 2 % [facility] NRBC Pct Auto 0.0 0.0 - 0.2 /100WBC [facility] Neutrophils Absolute Auto 5.1 2.0 - 8.3 x10*3/uL [facility] Imm Gran Abs Auto 0.07(H) 0.00 - 0.03 X10*3/uL [facility] Lymphocytes Absolute Auto 1.9 1.2 - 4.9 X10*3/uL [facility] Monocytes Absolute Auto 0.5 0.1 - 1.2 X10*3/uL [facility] Eosinophils Absolute Auto 0.2 0.0 - 0.4 X10*3/uL [facility] Basophils Absolute Auto 0.0 0.0 - 0.2 X10*3/uL [facility] NRBC Abs Auto 0.000 0.0 - 0.012 X10*3/uL [facility] Blood Venous blood specimen / Unknown 03/22/2024 11:11 AM EDT 03/22/2024 1:17 PM EDT Lois Salazar MD LAB BLOOD ORDERABLES Final Resul t [facility] [address] [place] [address] [phone] documented in this encounter Visit Diagnoses Diagnosis Anemia due to stage 3b chronic kidney disease (CMS/HCC) (CMS/HCC)- Primary documented in this encounter Additional Health Concerns Assessment Noted Time PHQ-9 Depression Total Score: 2 09/20/19 24 9:42 AM EDT documented as of this encounter Care Teams Respiratory Care Technician Relationship Specialty Start Date End Date Lois Salazar MD [address] [place] [address] PCP - General Family Medicine 05/27/23 Jono Pérez, PharmD [address] [place] [address] Pharmacist Internal Medicine 07/04/23 documented as of this encounter
--- OUTSIDE RECORDS SUMMARY | 2024-07-05 11:19 | XMS_ITS | Encounter Summary ---
Author Organization [employer] [facility] Address [address] [facility] 7t [place] [address] Care Team Providers Care Flour Mixer Name Role Phone Lois Salazar MD Primary Care Provider Jono Pérez PharmD Unavailable [phone] Encounter Details Date Type Department Care Team (Late st Contact Info) Description 07/23/2022 Abstract [facility] ADULT DENTAL [address] [place] [address] Angie Bean DDS [address] [place], [place] [phone] Social History Tobacco Use Types Packs/Day Years [...] Description 08/07/2024 10:30 AM EDT Office Visit [facility] ADULT DENTAL [address] [place] [address] [place] DDS [address] [place] [address] 10/03/2024 2:00 PM EDT Medication Management [facility] MEDICINE [address] [place] [address] Jono Pérez, PharmD [address] [place] [address] documented as of this encounter Visit Diagnoses Not on filedocumented in this encounter Care Teams Flour Mixer Relationship Specialty Start Date End Date Lois Salazar MD [address] [place] [address] PCP - General Family Medicine 05/27/23 Jono Pérez, PharmD [address] [place] [address] Pharmacist Internal Medicine 07/04/23 documented as of this encounter
--- OUTSIDE RECORDS SUMMARY | 2024-07-05 11:19 | XMS_ITS | Encounter Summary ---
Author Organization [email or web address] [facility] Address [address] [place] [address] 7[address] [place] [address] Care Team Providers Care Yard Manager Name Role Phone Lois Salazar MD Primary Care Provider [phone] Jono Pérez PharmD Unavailable Reason for Referral * Consultation (Routine) - Closed Specialty Diagnoses / Procedures Referred By Marta flores Referred To Contact Pharmacy Diagnoses Acute ischemic stroke (CMS/HCC) Xiomara Addison, PharmD [address] [place] [address] Phone: tel: fax: Referral ID Status Reason Start Date Expiration Date V isits Requested Visits Authorized [id number] Closed Continuity of Care 09/15/2023 09/14/2024 1 1 Encounter Details Date Type Department Care Team (Late st Contact Info) Description 09/15/2023 Orders Only [facility] MEDICINE [address] [place], [place] [phone] Xiomara Addison, PharmD [address] [place], [place] [phone] Acute ischemic stroke (CMS/HCC) (Primary Dx) Social [...] Description 08/07/2024 10:30 AM EDT Office Visit [facility] ADULT DENTAL [address] [place] [address] [place] DDS [address] [place] [address] 10/03/2024 2:00 PM EDT Medication Management [facility] MEDICINE [address] [place] [address] Jono Pérez, Mitch [address] [place] [address] Scheduled Referrals Name Type Priority Associated Diagnoses [...] infarction documented in this encounter Care Teams Yard Manager Relationship Specialty Start Date End Date Lois Salazar MD [address] [place] [address] [phone] PCP - General Family Medicine 05/27/23 Jono Pérez, CharlesD [address] [place] [address] [phone] Pharmacist Internal Medicine 07/04/23 documented as of this encounter
--- OUTSIDE RECORDS SUMMARY | 2024-07-05 11:19 | XMS_ITS | Encounter Summary ---
Author Organization [email or web address] Address [address] [facility] 7t [place] [address] Care Team Providers Care Business Integration Analyst Name Role Phone Lois Salazar MD Primary Care Provider [phone] Jono Pérez PharmD Unavailable [phone] Reason for Visit * Reason Onset Date Comments Durable Medical Equipment 11/28/2023 Encounter Details Date Type Department Care Team ([facility] st Contact Info) Description 11/28/2023 Telephone [facility] MEDICINE [address] [place], [place] [phone] Lois Salazar MD [address] [place], [place] [phone] Durable Medical Equipment Social History Tobacco Use [...] Description 08/07/2024 10:30 AM EDT Office Visit [facility] ADULT DENTAL [address] [place] [address] Tr [place] DDS [address] [place] [address] 10/03/2024 2:00 PM EDT Medication Management [facility] MEDICINE [address] [place] [address] Jono Pérez PharmD [address] [place] [address] documented as of this encounter Goals Goal [...] documented as of this encounter Care Teams Business Integration Analyst Relationship Specialty Start Date End Date Sakurai, Lois, MD [address] [place], [place] [phone] PCP - General Family Medicine 05/27/23 Jono Pérez, CharlesD [address] [place] [address] Pharmacist Internal Medicine 07/04/23 documented as of this encounter
--- OUTSIDE RECORDS SUMMARY | 2024-07-05 11:19 | XMS_ITS | Encounter Summary ---
Author Organization [employer] [facility] Address [address] [facility] 7t [place] [address] Care Team Providers Care Caser In Name Role Phone Lois Salazar MD Primary Care Provider [phone] Jono Pérez PharmD Unavailable [phone] Reason for Visit * Reason Onset Date Comments insurance 05/12/2023 Encounter Details Date Type Department Care Team ([facility] Contact Info) Description 05/12/2023 Telephone [facility] ADULT DENTAL [address] [place] [address] [place] DDS [address] [place] [address] insurance Social History Tobacco Use Types Packs/Day [...] Care Team ( st Contact Info) Description 08/07/2024 10:30 AM EDT Office Visit [facility] ADULT DENTAL [address] [place], [place] [phone] [place] DDS [address] [place] [address] 10/03/2024 2:00 PM EDT Medication Management [facility] MEDICINE [address] [place] [address] Jono Pérez, PharmD [address] [place] [address] documented as of this encounter Visit Diagnoses Not on filedocumented in this encounter Care Teams Caser In Relationship Specialty Start Date End Date Lois Salazar MD [address] [place] [address] [phone] PCP - General Family Medicine 05/27/23 Jono Pérez, PharmD [address] [place] [address] [phone] Pharmacist Internal Medicine 07/04/23 documented as of this encounter
--- OUTSIDE RECORDS SUMMARY | 2024-07-05 11:19 | XMS_ITS | Clinical Summary ---
Author Organization [facility] Address [address] [place] [address] Care Team Providers Care Food Taster Name Role Phone Yesi Linares MD Primary Care Provider [phone] Medications amLODIPine (NORVASC) 10 MG tablet Take [...] patient's age to complete this topic Insurance DINUBA DUAL MCR/KAYCEE ([id number]) DINUBA DUAL MCR/KAYCEE ([id number]) Care Teams Food Taster Relationship Specialty Start Date End Date Yesi Linares MD [address] [place], [place] PCP - General 06/02/20
--- OUTSIDE RECORDS SUMMARY | 2024-07-05 11:19 | XMS_ITS | Encounter Summary ---
Author Organization [employer] Address [address] [facility] 7t [place] [address] Care Team Providers Care Supervisor Home Energy Consultant Name Role Phone Lois Salazar MD Primary Care Provider [phone] Jono Pérez PharmD Unavailable [phone] Encounter Details Date Type Department Care Team (Late st Contact Info) Description 10/11/2023 Abstract [facility] MEDICINE [address] [place], [place] [phone] Lois Salazar MD [address] [place], [place] [phone] Social History Tobacco Use Types Packs/Day Years [...] Description 08/07/2024 10:30 AM EDT Office Visit [facility] ADULT DENTAL 230 [place] [address] Tr [place] DDS [address] [place] [address] 10/03/2024 2:00 PM EDT Medication Management [facility] MEDICINE [address] [place] [address] Jono Pérez, PharmD [address] [place] [address] documented as of this encounter Goals Goal [...] 2 Anatomical Region Laterality Modality Other 10/06/2023 us Historical Provider HEALTH MAINTENANCE Final Result documented in this encounter Visit Diagnoses Not on filedocumented in this encounter Additional Health Concerns Assessment Noted Time PHQ-9 Depression Total Score: 2 09/20/19 24 9:42 AM EDT documented as of this encounter Care Teams Supervisor Home Energy Consultant Relationship Specialty Start Date End Date Lois Salazar MD [address] [place] [address] PCP - General Family Medicine 05/27/23 Jono Pérez, Mitch [address] [place] [address] Pharmacist Internal Medicine 07/04/23 documented as of this encounter
--- OUTSIDE RECORDS SUMMARY | 2024-07-05 11:19 | XMS_ITS | Encounter Summary ---
Author Organization [employer] Address [address] [facility] 7t [place] [address] Care Team Providers Care Die Casting Machine Setter Name Role Phone Lois Salazar MD Primary Care Provider [phone] Jono Pérez PharmD Unavailable [phone] Reason for Visit * Reason Comments Med Refill Encounter Details Date Type Department Care Team ([facility] st Contact Info) Description 06/06/2024 Refill [facility] MEDICINE [address] [place], [place] [phone] Nai Randall MD [address] [place], [place] [phone] Social History Tobacco Use Types Packs/Day Years [...] Description 08/07/2024 10:30 AM EDT Office Visit [facility] ADULT DENTAL [address] [place] [address] [address] DDS [address] [place] [address] 10/03/2024 2:00 PM EDT Medication Management [facility] MEDICINE [address] [place] [address] Jono Pérez PharmD [address] [place] [address] documented as of this encounter Goals Goal Patient Goal Type Associated Problems Recent Progress Patient-Stated? Author Blood Pressure < 140/90 Blood Pressure 148/80( 025 9:17 AM EST) No Jono Pérez, PharmBlane documented as of this encounter Visit Diagnoses Not on filedocumented in this encounter Additional Health Concerns Assessment Noted Time PHQ-9 Depression Total Score: 2 09/20/19 24 9:42 AM EDT documented as of this encounter Care Teams Die Casting Machine Setter Relationship Specialty Start Date End Date Lois Salazar MD [address] [place] [address] PCP - General Family Medicine 05/27/23 Jono Pérez, CharlesD [address] [place] [phone] Pharmacist Internal Medicine 07/04/23 documented as of this encounter
--- OUTSIDE RECORDS SUMMARY | 2024-07-05 11:19 | XMS_ITS | Encounter Summary ---
Author Organization [employer] [facility] Address [address] [facility] 7t [place] [address] Care Team Providers Care Log Hooker Name Role Phone Lois Salazar MD Primary Care Provider [phone] Jono Pérez PharmD Unavailable [phone] Encounter Details Date Type Department Care Team (Late st Contact Info) Description 07/23/2022 Abstract [facility] ADULT DENTAL [address] [place] [address] Angie Bean DDS [address] [place], [place] [phone] Social History Tobacco Use Types Packs/Day Years [...] Description 08/07/2024 10:30 AM EDT Office Visit [facility] ADULT DENTAL [address] [place] [address] [address] [place] DDS [address] [place] [address] 10/03/2024 2:00 PM EDT Medication Management [facility] MEDICINE [address] [place] [address] Jono Pérez, PharmD [address] [place] [address] documented as of this encounter Visit Diagnoses Not on filedocumented in this encounter Care Teams Log Hooker Relationship Specialty Start Date End Date Lois Salazar MD [address] [place] [address] PCP - General Family Medicine 05/27/23 Jono Pérez, PharmD [address] [place] [address] Pharmacist Internal Medicine 07/04/23 documented as of this encounter
--- OUTSIDE RECORDS SUMMARY | 2024-07-05 11:19 | XMS_ITS | Clinical Summary ---
Author Organization [employer] Address [address] [facility] 7t [place] [address] Care Team Providers Care Clinical Statistics Manager Name Role Phone Lois Ennis MD Primary Care Provider Jono Pérze PharmD Unavailable [phone] Allergies Active Allergy Reactions Criticality Noted Date [...] complication, with long-term current use of insulin ([facility]) Chew 4 tablets by mouth as needed for hypoglycemia. 40 tablet 11 Active glucagon (Baqsimi) 3 MG/DOSE nasal powderIndicatio ns:Type 2 diabetes mellitus with other specified complication, with long-term current use of insulin ([facility]) Instill 3 mg (1 actuation) into 1 nostril as needed for severe hypoglycemia. May repeat dose if there has been no response after 15 minutes. 2 each 1 Active atorvastatin (Lipitor) 80 MG tablet Take 80 mg by mouth at bedtime. Active FreeStyle Precision En Test test stripIndication s:Type 2 diabetes mellitus with hyperglycemia, with long-term current use of insulin ([facility]) Check your sugar 5 times per day [...] mouth in the morning. 90 tablet 3 Active cholecalciferol (D3-1000) 25 MCG (1000 UT) [...] Active Problems Problem Noted Date Diagnosed Date Excessive attrition of teeth, limited to enamel 07/04/2024 Arthralgia of left temporomandibular joint 12/17 Gastroparesis 10/10/2023 Assessment & Plan (03/15/2024 4:04 PM EDT): - following with [facility] GI, last seen in July 2023 - Rx metoclopramide 5 mg tid - Use the minimum effective dose due to her neuropsychiatric condition. Assessment & Plan (12/18/2023 12:56 PM EDT): - following with [facility] GI, last seen in July 2023 [...] incontinence supply Disorder of left temporomandibular joint 024 Assessment & Plan (09/22/2023 8:37 AM EDT): - patient did not complain any problem today History of stroke with current residual effects 09/20/2023 Assessment & Plan (03/15/2024 10:24 AM EDT): - 08/11/23 acute ischemic stroke. [facility] hospitalization. Seen by neurologist. Increased atorvastatin to 80 mg at bedtime. Already on apixaban for A-fib. Recommended to continue. - MRI on 08/12/23 showed a 1.9 cm acute infarct involving the right thalamus and posterior limb of the right internal capsule, right FIRST AID NURSE territory. - s/p rehab 08/15/23 to 09/01/23. [...] PM EDT): - 08/11/23 acute ischemic stroke. [facility] hospitalization. Seen by neurologist. Increased atorvastatin to 80 mg at bedtime. Already on apixaban for A-fib. Recommended to continue. - MRI on 08/12/23 showed a 1.9 cm acute infarct involving the right thalamus and posterior limb of the right internal capsule, right FIRST AID NURSE territory. - s/p rehab 08/15/23 to 09/01/23. [...] PM EDT): - following with Dr. Barclay [facility] nephrology, last seen in December 2023 - continue current medications - avoid nephrotoxic drugs - continue SGLT2 inhibitor - optimize HTN and diabetes mellitus management Assessment & Plan (12/20/2023 4:04 PM EDT): - following with Dr. Barclay [facility] nephrology, last seen in October 2023 - continue current medications - avoid nephrotoxic drugs - optimize HTN and diabetes mellitus management Assessment & Plan (09/20/2023 10:37 AM EDT): - following with Dr. Barclay [facility] nephrology - continue current medications - avoid nephrotoxic drugs - optimize HTN and diabetes mellitus management Assessment & Plan (05/27/2023 12:51 PM EST): - following with Dr. Barclay [facility] nephrology - continue current medications - avoid nephrotoxic drugs - optimize HTN and diabetes mellitus management Paroxysmal atrial fibrillation 05/27/2023 Assessment & Plan (03/15/2024 10:22 AM EDT): - following [facility] Cardiology, last seen in Mar 2023, annual follow up - [id number] - continue apixaban - currently rate control with metoprolol - Dr. Fonseca is entertaining rhythm control if pt has recurrence of symptomatic atrial fibrillation Assessment & Plan (12/18/2023 1:03 PM EDT): - following [facility] Cardiology, last seen in Mar 2023, annual follow up - [id number] 7 - continue apixaban - currently rate control with metoprolol - Dr. Fonseca is entertaining rhythm control if pt has recurrence of symptomatic atrial fibrillation Assessment & Plan (09/23/2023 6:34 AM EDT): - following [facility] Cardiology - [id number] 5 - continue apixaban - currently rate control with metoprolol - Dr. Fonseca is entertaining rhythm control if pt has recurrence of symptomatic atrial fibrillation Assessment & Plan (05/27/2023 12:56 PM EST): - following [facility] ED - [id number] 5 - continue apixaban - currently rate [...] no record of evaluation - following with [facility] for BHS - reconcile medications; consider minimizing medications with anticholinergic effect Assessment & Plan (12/18/2023 1:06 PM EDT): - no record of evaluation - following with [facility] for BHS - reconcile medications; consider minimizing medications with anticholinergic effect Assessment & Plan (09/20/2023 10:37 AM EDT): - no record of evaluation - following with [facility] for BHS - reconcile medications; consider minimizing medications with anticholinergic effect Assessment & Plan (05/27/2023 12:43 PM EST): - no record of evaluation - following with [facility] for BHS - reconcile medications; consider minimizing [...] (03/15/2024 4:42 PM EDT): - following with [facility] GI - last colonoscopy in 2017 - Continue famotidine at renal dose, 20 mg at bedtime - Consider PPI if track rider approves - Avoid irritants Spoke with Dr. Bronson Barclay, patient's track rider. Since patient's renal function has been stable, use of PPI was approved. Contacted patient's daughter, and informed that we will try omeprazole 20 mg daily. Assessment & Plan (12/18/2023 12:57 PM EDT): - following with [facility] GI - last colonoscopy in 2017 - Decrease famotidine to renal dose, 20 mg at bedtime. 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 Garcia, [facility]. Last seen in 2016 - Business Intelligence Director Onc: Dr. Aquino at [facility] Assessment & Plan (12/18/2023 12:55 PM EDT): - s/p hysterectomy / BSO - following with [facility] Business Intelligence Director onc? - will request records Assessment & Plan (05/27/2023 1:08 PM EST): - s/p hysterectomy / BSO - following with [facility] Business Intelligence Director onc? - will request records Malignant neoplasm of breast 05/26/202308/2023 Assessment & Plan (03/15/2024 5:17 PM EDT): - s/p left partial mastectomy 2017. Invasive ductal carcinoma. - most recent mammography 06/14/23 screening, showing left asymmetry. Additional imaging on 10/06/23 which showed benign finding. BI-RADS 2. - still on tamoxifen - previously following with [facility] oncology, last seen in 2018 - will check whether patient needs to be on tamoxifen and refer patient back to [facility] Onc Assessment & Plan (12/18/2023 12:46 PM EDT): - s/p lumpectomy in 2017 - most recent mammography 06/14/23 screening, showing left asymmetry. Additional imaging on 10/06/23 which showed benign finding. BI-RADS 2. - continue tamoxifen - previously following with [facility] breast cancer clinic Assessment & Plan (09/22/2023 8:39 AM EDT): - s/p lumpectomy in 2017 - continue tamoxifen - previously following with [facility] breast cancer clinic - reminded about need for follow up mammo. 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 eDmpsey, will check next appointment date - Foot exam: 05/26/23 decreased sensation Assessment & Plan (12/18/2023 12:52 PM EDT): - Dx > 20 years - Hgb A1C 8.9% on 12/16/23 - Following with [facility] Endo, last seen on 12/16/23 - [...] A1C 9.8% on 09/20/23 - Following with [facility] Endo - Continue working on lifestyle [...] - Hgb A1C 9.2% - Following with [facility] Endo - Continue working on lifestyle [...] goal < 130/84 -Co-managed with our pharmacist, flue lining dipper, and track rider -BP borderline today -Continue working on lifestyle [...] goal < 130/84 -Co-managed with our pharmacist, flue lining dipper, and track rider -BP almost at goal -Continue working on [...] (12/18/2023 12:48 PM EDT): - following with [facility] - needs to reconcile medications Assessment & Plan (05/27/2023 1:11 PM EST): - following with [facility] - needs to reconcile medications Hyperlipidemia 10/06/2011 [...] Encounters Date Type Department Care Team Description 07/04/2024 9:00 AM EST Office Visit [facility] ADULT DENTAL [address] [place] [address] Shivani Pan Excessive attrition of teeth, limited to enamel (Primary Dx); Dental calculus; Dental plaque 07/04/2024 Refill [facility] MEDICINE [address] [place] [address] Lois Ennis MD Essential hypertension 06/06/2024 Refill [facility] [address] [facility] [place] [address] Nai Randall MD 05/31/2024 Orders Only GENERIC EXTERNAL DATA DEPARTMENT Provider, Generic External Data 05/11/2024 Refill [facility] MEDICINE [address] [place] [address] Nai Randall MD 05/03/2024 Refill [facility] MEDICINE [address] [place] [address] Nai Randall MD 04/16/2024 Refill [facility] [address] [facility] [place] [address] Nanette Travis RN 04/16/2024 Refill [facility] [place] [address] Lois Ennis MD 04/14/2024 Refill [facility] [address] [facility] [place] [address] Lois Ennis MD 04/09/2024 Travel 04/06/2024 Telephone [facility] MED[facility] [address] [facility] [place] [address] Lois Ennis MD from Last 3 Months Immunizations Name Administration [...] Sign Reading Time Taken Comments Blood Pressure 148/80 07/04/2024 9:17 AM EST Pulse 64 04/09/2024 2:07 PM EST [...] Description 08/07/2024 10:30 AM EDT Office Visit [facility] ADULT DENTAL [address] [place] [address] Tr Lake, RUDDYS [address] [place] [address] 10/03/2024 2:00 PM EDT Medication Management [facility] MEDICINE [address] [place] [address] Jono Pérez, PharmD [address] [place] [address] Health Maintenance Due Date Last Done Comments Alcohol/Substance Use Screening 1957 Hepatitis C Screening 11/30/1963 Diabetes: Foot Exam 05/26/2024 05/26/2023, 05/26/2023, 05/26/2023, Additional history exists Diabetes: Hemoglobin A1C 06/15/2024 024, 09/20/2023, 05/26/2023 Depression Screening 09/19/2024 09/20/2023, 09/20/19 SDOH Screening 09/19/2024 09/20/2023 Mammogram 10/05/2024 10/06/2023, 06/14/2023 Dental Oral Exam 01/02/2025 07/04/2024 Dental Prophylaxis 01/02/2025 07/04/2024 Diabetes: Urine Protein Screening 03/22/2025 03/22/2024, 05/27/2023 Lipid Panel 03/22/2025 03/22/2024, 05/27/2023 Tobacco Screening 07/04/2025 07/04/2024 Dental X-Ray: Bitewings 07/05/2025 07/04/2024 Eye Exam 10/06/2025 10/07/2023 DTaP/Tdap/Td Vaccines (2 - Td or Tdap) 03/23/2026 03/23/2016, 01/05/2006 Dental X-Ray: Full Mouth 07/05/2027 07/04/2024, 02/21 Pneumococcal Vaccine: 50+ Years Completed 02/16/2016, 07/23/2013, 01/26/2006 Zoster Vaccines [...] 9:17 AM EST) No Jono Pérez, Mitch Procedures Procedure Name Priority Date/Time Associated Diagnosis Comments INTRAORAL - COMPLETE SERIES OF RADIOGRAPHIC IMAGES Routine 07/04/2024 9:00 AM EST PROPHYLAXIS - ADULT Routine 07/04/2024 9 :00 AM EST Dental calculus Dental plaque ORAL HYGIENE INSTRUCTIONS Routine 07/04/2024 9:00 AM EST Dental calculus Dental plaque PERIODIC ORAL EVALUATION - ESTABLISHED PATIENT Routine 07/04/2024 9:00 AM EST GLUCOSE, WHOLE BLOOD Routine 05/31/2024 10:45 AM EST ALBUMIN, RANDOM URINE W/CREATININE Routine 03/22/2024 11:20 AM EDT Type 2 diabetes mellitus with hyperglycemia, with long-term current use of insulin ([facility]) LIPID PANEL WITH REFLEX TO DIRECT LDL Routine 03/22/2024 11:11 AM EDT Type 2 diabetes mellitus with hyperglycemia, with long-term current use of insulin ([facility]) POCT GLYCATED HEMOGLOBIN, TOTAL Routine 03/15/2024 10:17 AM EDT Type 2 diabetes mellitus with hyperglycemia, with long-term current use of insulin ([facility]) DIABETES EYE EXAM Routine 10/07/2023 MAMMOGRAPHY Routine 10/06/2023 from Last 3 Months or Most Recently Relevant to Health Maintenance Results * (ABNORMAL) Glucose, Whole Blood (05/31/2024 10:45 AM EST) Glucose, Whole Blood 204(H) 60 - 115 mg/dL [facility] Comment:METER #: [id number] 5Testing performed in the Endocrinology Department [address] , [address], [facility]. 05/31/2024 10:4 5 AM EST 05/31/2024 10:51 AM EST us Generic External Data Provider LAB BLOOD ORDERAB LES Final Result Performing Organization Address [facility] Co de Phone Number [facility] [address] [place] [address] [phone] * (ABNORMAL) Albumin, Random Urine W/Creatinine (03/22/2024 11:20 AM EDT) Creatinine, Urine 97.69 mg/dL [facility] Microalbumin Urine 420.0 mg/L [facility] Microalbum Creatinine Ratio Ur 429.9(H) <30 ug/mg cr [facility] Comment:Albumin/Creatinine R atio Reference Ranges: Normal: < 30 ug/mg creatinine Microalbuminuria: 30 - 300 ug/mg creatinineClinical Albuminuria: > 300 ug/mg creatinine Urine 03/22/2024 11:2 0 AM EDT 03/22/2024 1:18 PM EDT us Lois Ennis MD LAB URINE ORDERABLES Final Resul t Performing Organization Address [facility] Co de Phone Number [facility] [address] [place] [address] [phone] * (ABNORMAL) Lipid Panel with Reflex to Direct LDL (03/22/2024 11:11 AM EDT) Triglycerides 199(H) <150 mg/dL [facility] Comment:Desirable Triglyceri de: less than 150 mg/dLBorderline High Triglyceride 150-199 mg/dLHigh Triglyceride: 200-499 mg/dLVery High Triglyceride: greater than or equal to 5OO mg/dL Cholesterol 138 <200 mg/dL [facility] Comment:Desirable Cholestero l: less than 200 mg/dLBorderline High Cholesterol: 200-239 mg/dLHigh Cholesterol: greater than 239 mg/dL LDL Cholesterol Calculated 73 <100 mg/dL [facility] Comment:Desirable LDL: less than 100 mg/dLNear Optimal/Above Optimal LDL: 110- 129 mg/dLBorderline High LDL: 130-159 mg/dLHigh LDL: 160-189 mg/dLVery High LDL: greater than or equal to 190 mg/dL HDL Cholesterol 26(L) >40 mg/dL [facility] Comment:Desirable HDL: great er than 40 mg/dL Note: This HDL assay may give artificially low results in patients with liver disease. Blood 03/22/2024 11:1 1 AM EDT 03/22/2024 1:17 PM EDT Lois Ennis MD LAB BLOOD ORDERABLES Final Resul t Performing Organization Address City/State/[facility] Co de Phone Number [facility] [address] [place] [phone] * (ABNORMAL) POCT HGB A1C (03/15/2024 10:17 AM EDT) Hemoglobin A1C 8.8(A) 4.0 - 6.0 % QC Media Lot # [id number] Lot# Expiration Date Blood 03/15/2024 10:1 7 AM EDT Lois Ennis MD POINT OF CARE TEST ENTER/EDIT OR DERABLES Final Result * Diabetes Eye Exam (10/07/2023) Eye Exam Normal Normal Freddy Pimentel MD HEALTH MAINTENANCE Final Result * Mammography (10/06/2023) Mammogram BIRADS 2 Normal, Abnormal, BIRADS 1 , BIRADS 2 Anatomical Region Laterality Modality Other 10/06/2023 Historical Provider HEALTH MAINTENANCE Final Result from Last 3 Months or Most Recently Relevant to Health Maintenance [facility] ST[facility]ARD DENTAL - [facility] Advance Directives Documents on File Type Date Recorded Patient [employer] Expl anation Advance Directives and Livin g Will 12/18/2023 12:04 PM Care Teams Clinical Statistics Manager Relationship Specialty Start Date End Date Lois Ennis MD [address] [place] [phone] PCP - General Family Medicine 05/27/23 Jono Pérez, PharmD [address] [place] [phone] Pharmacist Internal Medicine 07/04/23
--- OUTSIDE RECORDS SUMMARY | 2024-07-05 11:19 | XMS_ITS | Encounter Summary ---
Author Organization [facility] Address [address] [facility] [address] [place] [address] Care Team Providers Care Route Clerk Name Role Phone Lois Slaazar MD Primary Care Provider [phone] Jono Pérez PharmD Unavailable [phone] Encounter Details Date Type Department Care Team (Latest Contact Info) Description 02/10/2022 Abstract [facility] CONVERSIONS Dental, Provider, DDS Social History [...] Description 08/07/2024 10:30 AM EDT Office Visit [facility] ADULT DENTAL [address] [place] [address] [address] DDS [address] [place] [address] 10/03/2024 2:00 PM EDT Medication Management [facility] MEDICINE [address] [place] [address] Jono Pérez, PharmD [address] [place] [address] documented as of this encounter Visit Diagnoses Not on filedocumented in this encounter Care Teams Route Clerk Relationship Specialty Start Date End Date Lois Salazar MD [address] [place] [address] PCP - General Family Medicine 05/27/23 Jono Pérez, PharmD [address] [place], [place] [address] [address] Pharmacist Internal Medicine 07/04/23 documented as of this encounter
--- OUTSIDE RECORDS SUMMARY | 2024-07-05 11:19 | XMS_ITS | Encounter Summary ---
Author Organization [facility] [facility] Address [address] [facility] 7t [place] [address] Care Team Providers Care Drafter Civil (Cad) Name Role Phone Lois Salazar MD Primary Care Provider [phone] Jono Pérez PharmD Unavailable [phone] Reason for Visit * Reason Onset Date Comments medication 07/29/2022 Encounter Details Date Type Department Care Team (Late st Contact Info) Description 07/29/2022 Telephone [facility]ULT [facility] [address] [place] [address] Constantine Richardson, ERI [address] [place] [address] medication Social History Tobacco Use Types Packs/Day [...] Good morning Kimmie, spoke with patient and daughter(dialysis patient care technician). Requested them to plese stop the antibiotic. [...] Description 08/07/2024 10:30 AM EDT Office Visit [facility] [address] [place] [address] Tr Lake DDS [address] [place] [address] 10/03/2024 2:00 PM EDT Medication Management [facility] [address] [place] [address] Jono Pérez PharmD 230 [place] [address] documented as of this encounter Visit Diagnoses Not on filedocumented in this encounter Care Teams Drafter Civil (Cad) Relationship Specialty Start Date End Date Lois Salazar MD [address] [place] [address] PCP - General Family Medicine 05/27/23 Jono Pérez, Mitch [address] [place] [address] Pharmacist Internal Medicine 07/04/23 documented as of this encounter
--- OUTSIDE RECORDS SUMMARY | 2024-07-05 11:19 | XMS_ITS | Encounter Summary ---
Author Organization [employer] Address [address] [facility] 7t [place] [address] Care Team Providers Care Tool Operator Name Role Phone Lois Salazar MD Primary Care Provider Jono Pérez PharmD Unavailable [phone] Reason for Visit * Reason Comments Med Refill Encounter Details Date Type Department Care Team ([facility] st Contact Info) Description 07/04/2024 Refill [facility] [address] [place], [place] [phone] Lois Salazar MD [address] [place], [place] [phone] Essential hypertension Social History Tobacco Use Types Packs/Day Years [...] Description 08/07/2024 10:30 AM EDT Office Visit [facility] ADULT D[facility] [address] [place] [address] Tr [place] DDS [address] [place] [address] 10/03/2024 2:00 PM EDT Medication Management [facility] [address] [place] [address] Jono Pérez PharmD [address] [place] [address] documented as of this encounter Goals Goal Patient Goal Type Associated Problems Recent Progress Patient-Stated? Author Blood Pressure < 140/90 Blood Pressure 148/80( 025 9:17 AM EST) No Jono Pérez PharmD documented as of this encounter Visit Diagnoses Diagnosis Essential hypertension Unspecified essential hypertension documented in this encounter Additional Health Concerns Assessment Noted Time PHQ-9 Depression Total Score: 2 09/20/19 24 9:42 AM EDT documented as of this encounter Care Teams Tool Operator Relationship Specialty Start Date End Date Lois Salazar MD [address] [place] [address] PCP - General Family Medicine 05/27/23 Jono Pérez PharmD [address] [place] [address] Pharmacist Internal Medicine 07/04/23 documented as of this encounter
--- OUTSIDE RECORDS SUMMARY | 2024-07-05 11:19 | XMS_ITS | Encounter Summary ---
Author Organization [facility] [facility] Address 75 [facility] 7t [place] [address] Care Team Providers Care Remote Sensing Analyst Name Role Phone Lois Salazar MD Primary Care Provider [phone] Jono Pérez PharmD Unavailable [phone] Encounter Details Date Type Department Care Team (Late Contact Info) Description 12/20/2022 Telephone [facility] ADULT DENTAL [address] [place] [address] Tr [place] DDS [address] [place] [address] Social History Tobacco Use Types Packs/Day Years [...] Description 08/07/2024 10:30 AM EDT Office Visit [facility] [address] [place], [place] [phone] Tr [place] DDS [address] [place] [address] 10/03/2024 2:00 PM EDT Medication Management [facility] [address] [place] [address] Jono Pérez, Mitch [address] [place] [address] documented as of this encounter Visit Diagnoses Not on filedocumented in this encounter Care Teams Remote Sensing Analyst Relationship Specialty Start Date End Date Lois Salazar MD [address] [place] [address] PCP - General Family Medicine 05/27/23 Jono Pérez, PharmBlane [address] [place] [address] [phone] Pharmacist Internal Medicine 07/04/23 documented as of this encounter
--- OUTSIDE RECORDS SUMMARY | 2024-07-05 11:19 | XMS_ITS | Encounter Summary ---
Author Organization [employer] Address 75 [facility] 7t [place] [address] Care Team Providers Care Chief Projectionist Name Role Phone Lois Salazar MD Primary Care Provider [phone] Jono Pérez PharmD Unavailable [phone] Encounter Details Date Type Department Care Team (Late st Contact Info) Description 10/05/2023 Orders Only [facility] MED[facility] [address] [place], [place] [phone] Lois Salazar MD [address] [place], [place] [phone] Social History Tobacco Use Types Packs/Day Years [...] Description 08/07/2024 10:30 AM EDT Office Visit [facility] ADULT DENTAL [address] [place] [address] Tr [place] DDS [address] [place] [address] 10/03/2024 2:00 PM EDT Medication Management [facility] [address] [place] [address] Jono Pérez, PharmD [address] [place] [address] documented as of this encounter Goals Goal [...] documented as of this encounter Care Teams Chief Projectionist Relationship Specialty Start Date End Date Lois Salazar MD [address] [place] [address] PCP - General Family Medicine 05/27/23 Jono Pérez, PharmD [address] [place] [address] Pharmacist Internal Medicine 07/04/23 documented as of this encounter
--- OUTSIDE RECORDS SUMMARY | 2024-07-05 11:19 | XMS_ITS | Encounter Summary ---
Author Organization [facility] [facility] Address 75 [facility] 7[place] [address] Care Team Providers Care Toll Gate Tender Name Role Phone Lois Salazar MD Primary Care Provider [phone] Jono Pérez PharmD Unavailable [phone] Encounter Details Date Type Department Care Team (Latest Contact Info) Description 03/21/2019 Abstract [facility] CONVERSIONS [...] Description 08/07/2024 10:30 AM EDT Office Visit [facility] ADULT DENTAL 230 [place] [address] Tr [place] DDS [address] [place] [address] 10/03/2024 2:00 PM EDT Medication Management [facility] MEDICINE [address] [place] [address] Jono Pérez, PharmD [address] [place] [address] documented as of this encounter Visit Diagnoses Not on filedocumented in this encounter Care Teams Toll Gate Tender Relationship Specialty Start Date End Date Lois Salazar MD [address] [place] [address] PCP - General Family Medicine 05/27/23 Jono Pérez, PharmD [address] [place] [address] [place] [address] Pharmacist Internal Medicine 07/04/23 documented as of this encounter
--- OUTSIDE RECORDS SUMMARY | 2024-07-05 11:19 | XMS_ITS | Encounter Summary ---
Author Organization [employer] Address [address] [facility] 7t [place] [address] Care Team Providers Care Butcher Assistant Name Role Phone Lois Salazar MD Primary Care Provider [phone] Jono Pérez PharmD Unavailable [phone] Encounter Details Date Type Department Care Team (Late st Contact Info) Description 12/18/2023 Orders Only [facility] [address] [place], [place] [phone] Lois Salazar MD 230 [place], [place] [phone] Social History Tobacco Use Types Packs/Day Years [...] Description 08/07/2024 10:30 AM EDT Office Visit [facility] [address] [place] [address] Tr [place] DDS [address] [place] [address] 10/03/2024 2:00 PM EDT Medication Management [facility] [address] [place] [address] Jono Pérez, PharmD [address] [place] [address] documented as of this encounter Goals Goal [...] documented as of this encounter Care Teams Butcher Assistant Relationship Specialty Start Date End Date Lois Salazar MD [address] [place] [address] PCP - General Family Medicine 05/27/23 Jono Pérez, PharmD [address] [place] [address] Pharmacist Internal Medicine 07/04/23 documented as of this encounter
--- OUTSIDE RECORDS SUMMARY | 2024-07-05 11:19 | XMS_ITS | Encounter Summary ---
Author Organization [employer] Address [address] [facility] 7t [place] [address] Care Team Providers Care Blocker And Cutter Contact Lens Name Role Phone Lois Salazar MD Primary Care Provider [phone] Jono Pérez PharmD Unavailable [phone] Reason for Visit * Reason Comments Routine Cleaning Dental Exam Encounter Details Date Type Department Care Team ([facility] st Contact Info) Description 07/04/2024 9:00 AM EST Office Visit [facility] ADULT DENTAL [address] [facility] [place] [address] Shivani Pan Excessive attrition of teeth, limited to enamel (Primary Dx); Dental calculus; Dental plaque Social History Tobacco Use Types Packs/Day Years [...] AM EDT documented as of this encounter Last Filed Vital Signs Vital Sign Reading Time Taken Comments Blood Pressure 148/80 07/04/2024 9:17 AM EST Pulse - - Temperature - - Respiratory Rate - - Oxygen Saturation - - Inhaled Oxygen Concentration - - Weight - - Height - - Body Mass Index - - documented in this encounter Progress Notes * Tr Lake, DDS - 07/04/2024 9:00 AM EST Asymptomatic at this time, sporadic pain on last three of the existing max. Teeth. Patient ID: Catherine Machado is a 78 y.o. female. Time Out: Timeout Date: 07/04/24, Timeout Time: 912 (Dental Prophy Adult) Location: [facility] Tooth: Maxilla and Mandible Procedure: Exam and Prophylaxis Verified the above with patient, assistant professor of communication, and provider. Confirmed via patient's chart, intraorally and by radiographs. Animal Assistant: not applicable Chief Complaint Patient presents with Routine Cleaning Dental Exam Medical Hx: Vitals: Blood pressure (!) 148/80. Past Medical History: Diagnosis Date Abnormal mammography 09/20/2023 Dental abscess 02/04/2023 Diabetes mellitus ([facility]) Hypertension Open fracture of tooth 02/04/2023 Sprain of ankle 04/06/2012 Vasovagal syncope 10/10/2023 Medications: Outpatient Encounter Medications as of 07/04/2024 Medication Sig Dispense Refill amLODIPine (Norvasc) 10 MG tablet TAKE 1 TABLET BY MOUTH EVERY MORNING 90 tablet 1 apixaban (Eliquis) 5 MG tablet Take 5 mg by mouth 2 times daily. atorvastatin (Lipitor) 80 MG tablet Take 80 mg by mouth at bedtime. Blood Pressure Monitor kit Use to check blood pressure daily as directed 1 kit 0 cholecalciferol (D3-1000) 25 MCG (1000 UT) capsule TAKE 1 CAPSULE BY MOUTH EVERY MORNING 30 capsule2 Continuous Blood Gluc Sensor (FreeStyle Carola 2 Sensor) [facility] USE DIRECTED CHANGE EVERY 14 DAYS Diclofenac Sodium 1 % gel Apply to affected area once or twice daily as needed for pain 350 g 3 famotidine (Pepcid) 20 MG tablet Take 1 tablet (20 mg) by mouth at bedtime. Take 1 tablet by mouth at bedtime 90 tablet 3 FeroSul 325 (65 Fe) MG tablet Take 1 tablet by mouth in the morning. FreeStyle Precision En Test test strip Check your sugar 5 times per day (Patient taking differently: Check your sugar four times per day) 200 each 11 glucagon (Baqsimi) 3 MG/DOSE nasal powder Instill 3 mg (1 actuation) into 1 nostril as needed for severe hypoglycemia. May repeat dose if there has been no response after 15 minutes. 2 each 1 glucose 4 g chewable tablet Chew 4 tablets by mouth as needed for hypoglycemia. 40 tablet 11 insulin lispro (HumaLOG) 100 UNIT/ML injection INJECT 35 UNITS SUBCUTANEOUSLY THREE TIMES DAILY. HOLD DINNER DOSE IF BLOOD SUGAR IS LESS THAN 200 Jardiance 10 MG Take 10 mg by mouth in the morning. lidocaine (Lidoderm) 5 % patch Apply 1 patch topically in the morning. Remove & discard patch within 12 hours or as directed by MD. 30 patch 11 Linzess 72 MCG capsule TAKE 1 CAPSULE BY MOUTH EVERY DAY IN THE MORNING magnesium oxide 250 MG tablet TAKE 1 TABLET BY MOUTH TWICE DAILY IN THE MORNING AND IN THE EVENING 180 tablet 0 memantine (Namenda) 5 MG tablet TAKE 1 TABLET BY MOUTH TWICE DAILY IN THE MORNING AND IN THE EVENING 60 tablet 0 metoclopramide (Reglan) 5 MG tablet Take 1 tablet by mouth three times daily metoprolol succinate XL (Toprol-XL) 100 MG 24 hr tablet Take 100 mg by mouth in the morning. omeprazole (PriLOSEC) [address] capsule Take 1 capsule (20 mg) by mouth before breakfast. Do not crush or chew. 90 capsule 3 Simethicone Ultra Strength 180 MG capsule Take 1 tablet by mouth three times daily tamoxifen (Nolvadex) 20 MG chemo tablet Take 1 tablet by mouth at bed time. Tresiba FlexTouch 200 UNIT/ML injection Inject 65 Units under the skin Once per day. TRUEplus Lancets 33G misc TEST BLOOD SUGAR FOUR TIMES DAILY UltiGuard SafePack Pen Needle 32G X 4 MM misc USE THREE TIMES DAILY valsartan (Diovan) 320 MG tablet Take 1 tablet (320 mg) by mouth in the morning. 90 tablet 3 No facility-administered encounter medications on file as of 07/04/2024. Objective HPI Asymptomatic at this time Head and Neck Exam: Lymph Nodes, Lips, Palate, Buccal Mucosa, Floor of Mouth, Tongue, Tonsils, Alveolar Ridges, Oropharynx, Salivary Ducts, and Vestibules normal appearance Details: Skin WNL OCS: negative Dental Exam As charted Teeth 6, 8 and 10 trauma / occlusion / edge to edge Reference tooth chart for additional findings. Oral Cancer Risk: Moderate Risk Oral Hygiene Instructions: [place] two times daily, modified ashton technique, Floss daily, Electric toothbrush, Soft bristle toothbrush, [place] Tongue Caries Risk Assessment: Medium- one risk factor Assessment/Plan SERGIO X Rays Prophy Medical clearance (provided) for pre existing medical conditions Apply for max. Denture Extractions after full denture fabrication Patient tolerated procedure well, all questions answered and expressed understanding. Dismissed in good condition. NV: Denture Impression (Imm.Plan) [employer] Dining Car: Shivani Pan RD Dentist: Tr Lake DDS * Shivani Pan - 07/04/2024 9:00 AM EST Patient ID: Catherine Machado is a 78 y.o. female. Time Out: Timeout Date: 07/04/24, Timeout Time: 912 (Dental Prophy Adult) Location: [facility] Tooth: Maxilla and Mandible Procedure: Exam, X-rays, and Prophylaxis Verified the above with patient, assistant professor of communication, and provider. Confirmed via patient's chart, intraorally and by radiographs. Animal Assistant: not applicable Medical Hx: Vitals: Blood pressure (!) 148/80. Medications, Med Hx reviewed with patient and updated in chart. Treatment Provided Dental procedures in this visit D0120 - PERIODIC ORAL EVALUATION - ESTABLISHED PATIENT (Completed) Service provider: Tr Lake DDS Billing provider: Tr Lake DDS D1110 - PROPHYLAXIS - ADULT (Completed) Service provider: Shivani Pan Billing provider: Tr Lake DDS D0210 - DIAGNOSTIC - DIAGNOSTIC IMAGING - INTRAORAL - COMPREHENSIVE SERIES OF RADIOGRAPHIC IMAGES (Completed) Service provider: Shivani Pan Billing provider: Tr Lake DDS D1330 - ORAL HYGIENE INSTRUCTIONS (Completed) Service provider: Shivani Pan Billing provider: Tr Lake DDS Instruments Used: Ultrasonic Scalers, Prophy angle, and floss Fluoride: N/A Oral Cancer Screening: No lesions Head/Neck Exam: No Lesions Calculus: Moderate and Generalized Plaque: Moderate and Generalized Stain: Heavy and Generalized Bleeding: Moderate and Generalized Gingiva: Perio Charting Completed and Inflamed OH: Poor Perio Chart: Completed Oral hygiene instructions provided to patient including brushing technique and flossing. Recommendations: [place] two times daily, modified ashton technique, Floss daily, Electric toothbrush, [place] Tongue, Anti-sensitivity toothpaste Recall Frequency: 6 mo NV: 6mrc Hygienist: Shivani Pan RDH documented in this encounter Plan of Treatment Upcoming Encounters Date Type Department Care Team (Late st Contact Info) Description 08/07/2024 10:30 AM EDT Office Visit [facility] ADULT DENTAL [address] [place] [address] Tr Lake DDS [address] [place] [address] 10/03/2024 2:00 PM EDT Medication Management [facility] MEDICINE [address] [place] [address] Jono Pérez PharmD [address] [place] [address] Scheduled Orders Name Type Priority Associated Diagnoses Orde r Schedule Max Max COMPLETE DENTURE - MAXILLARY Dental Routine 1 Occurrence s starting 07/04/2024 documented as of this encounter Goals Goal Patient Goal Type Associated Problems Recent Progress Patient-Stated? Author Blood Pressure < 140/90 Blood Pressure 148/80( 025 9:17 AM EST) No Jono Pérez, PharmD documented as of this encounter Procedures Procedure Name Priority Date/Time Associated Diagnosis Comments PROPHYLAXIS - ADULT Routine 07/04/2024 9 :00 AM EST Dental calculus Dental plaque PERIODIC ORAL EVALUATION - ESTABLISHED PATIENT Routine 07/04/2024 9:00 AM EST ORAL HYGIENE INSTRUCTIONS Routine 07/04/2024 9:00 AM EST Dental calculus Dental plaque INTRAORAL - COMPLETE SERIES OF RADIOGRAPHIC IMAGES Routine 07/04/2024 9:00 AM EST documented in this encounter Visit Diagnoses Diagnosis Excessive attrition of teeth, limited to enamel- Primary Dental calculus Accretions on teeth Dental plaque Accretions on teeth documented in this encounter Additional Health Concerns Assessment Noted Time PHQ-9 Depression Total Score: 2 09/20/19 9:42 AM EDT documented as of this encounter Care Teams Blocker And Cutter Contact Lens Relationship Specialty Start Date End Date Lois Salazar MD [address] [place] [address] PCP - General Family Medicine 05/27/23 Jono Pérez, CharlesD [address] [place] [address] Pharmacist Internal Medicine 07/04/23 documented as of this encounter
--- OUTSIDE RECORDS SUMMARY | 2024-07-05 11:19 | XMS_ITS | Encounter Summary ---
Author Organization [employer] [facility] Address [address] [place] [address] 7[address] [place] [address] Care Team Providers Care Maintenance Craftsman Name Role Phone Lois Salazar MD Primary Care Provider Jono Pérez PharmD Unavailable [phone] Encounter Details Date Type Department Care Team ([facility] Contact Info) Description 08/22/2023 Telephone [facility] MEDICINE [address] [place] [address] Lois Salazar MD [address] [place] [address] Social History Tobacco Use Types Packs/Day Years [...] Upcoming Encounters Date Type Department Care Team ([facility] Contact Info) Description 08/07/2024 10:30 AM EDT Office Visit [facility] ADULT DENTAL [address] [place] [address] Tr Lake DDS [address] [place] [address] 10/03/2024 2:00 PM EDT Medication Management [facility] MEDICINE [address] [place] [address] Jono Pérez, PharmD [address] [place] [address] documented as of this encounter Goals Goal Patient Goal Type Associated Problems Recent Progress Patient-Stated? Author Blood Pressure < 140/90 Blood Pressure 148/80( 025 9:17 AM EST) No Jono Pérez, PharmD documented as of this encounter Visit Diagnoses Not on filedocumented in this encounter Care Teams Maintenance Craftsman Relationship Specialty Start Date End Date Lois Salazar MD [address] [place] [address] PCP - General Family Medicine 05/27/23 Jono Pérez, PharmD [address] [place] [address] Pharmacist Internal Medicine 07/04/23 documented as of this encounter
--- OUTSIDE RECORDS SUMMARY | 2024-07-05 11:19 | XMS_ITS | Encounter Summary ---
Author Organization [employer] [facility] Address [address] [facility] 7[address] [place] [address] Care Team Providers Care Health Claims Examiner Name Role Phone Lois Salazar MD Primary Care Provider [phone] Jono Pérez PharmD Unavailable [phone] Reason for Referral * Consultation (Routine) - Authorized Specialty Diagnoses / Procedures Referred By Marta flores Referred To Contact Pharmacy Diagnoses Essential hypertension Type 2 diabetes mellitus with hyperglycemia, with long-term current use of insulin (CMS/HCC) Lois Salazar MD [address] [place] [address] Phone: tel: fax: Referral ID Status Reason Start Date Expiration Date Visits Requested Visits Authorized [id number] Authorized Consult and Treat 04/03/2024 04/03/2025 6 6 Encounter Details Date Type Department Care Team ([facility] st Contact Info) Description 04/03/2024 Orders Only [facility] MEDICINE [address] [place] [address] [phone] Lois Salazar MD [address] [place], [place] [phone] Essential hypertension (Primary Dx); Type 2 diabetes [...] [facility] ADULT DENTAL [address] [place] [address] Tr Lake DDS [address] [place] [address] 10/03/2024 2:00 PM EDT Medication Management [facility] [address] [place] [address] Jono Pérez, PharmD [address] [place] [address] Scheduled Referrals Name Type Priority Associated Diagnoses Orde r Schedule Referral to Pharmacy CDTM Outpatient Referral Routine Essential hypertension Type 2 diabetes mellitus with hyperglycemia, with long-term current use of insulin ([facility]) Ordered: 04/03/2024 documented as of this encounter Goals Goal Patient Goal Type Associated Problems Recent Progress Patient-Stated? Author Blood Pressure < 140/90 Blood Pressure 148/80( 025 9:17 AM EST) No Jono Pérez, Mitch documented as of this encounter Visit Diagnoses Diagnosis Essential hypertension- Primary Unspecified essential hypertension Type 2 diabetes mellitus with hyperglycemia, with long-term current use of insulin ([facility]) documented in this encounter Additional Health Concerns Assessment Noted Time PHQ-9 Depression Total Score: 2 09/20/19 24 9:42 AM EDT documented as of this encounter Care Teams Health Claims Examiner Relationship Specialty Start Date End Date Lois Salazar MD [address] [place] [address] PCP - General Family Medicine 05/27/23 Jono Pérez, CharlesD [address] [place] [phone] Pharmacist Internal Medicine 07/04/23 documented as of this encounter
== END 2024-07-05 10:39 | disposition home or self-care (01) ==
LOC: HO.MAMMO 10:38
PROVIDERS: PCP Family Medicine; Visit Provider Internal Medicine Medical Oncology
DX: Z12.31 Encounter for screening mammogram for malignant neoplasm of breast (principal); Z13.820 Encounter for screening for osteoporosis; Z85.3 Personal history of malignant neoplasm of breast; M85.80 Other specified disorders of bone density and structure, unspecified site; Z78.0 Asymptomatic menopausal state
CPT/HCPCS: 77063; 77067; 77080

== ENCOUNTER → 2024-07-05 11:00 | Outpatient (BNV) | payer OTHER, SELFPAY | PROVIDERS: PCP Family Medicine; Visit Provider Radiology Diagnostic Radiology | DX: E28.39 Other primary ovarian failure (principal) | CPT/HCPCS: 77080 ==

== ENCOUNTER 2024-07-17 10:43 | Outpatient (AMB) | payer OTHER, SELFPAY ==
[2024-07-17 10:43] VITALS: BP 128/52; PULSE 70; O2SAT 97; BMI 32.1
--- NOTE | 2024-07-17 10:43 | HO.NEPHOV_ITS ---
Vital Signs 07/17/24 10:43 Height 5 ft 3 in Weight 181 lb BMI 32.1 BP 128/52 L Blood Pressure Location Lt brachial Position Sitting Pulse 70 Pulse Source Pulse Oximeter Pulse Oximetry (%) 97 Oxygen Delivery Method Room Air Intake Visit Reasons: CKD/ Conf Account Maintenance Representative Required: Yes Account Maintenance Representative Name: Melba [id number] Accompanied by: ESTIMATION MANAGER Allergies JERMAINE Inhibitors [JERMAINE INHIBITORS] Adverse Reaction (Intermediate, Verified 07/17/24 10:45) COUGH lactose [LACTOSE] Adverse Reaction (Intermediate, Verified 07/17/24 10:45) GI DISCOMFORT Medication List - Last Reconciled 07/17/24 by Bronson Barclay MD amlodipine 10 mg PO QAM apixaban (Eliquis) 5 mg PO BID atorvastatin 80 mg PO BEDTIME blood sugar diagnostic (FreeStyle Precision En Strips) TEST BLOOD SUGAR FOUR TIMES DAILY blood-glucose meter (FreeStyle Precision En Meter) Tests 4 X/day cane As directed cholecalciferol (vitamin D3) (Vitamin D3) 25 mcg PO DAILY compr.stocking,knee,long,large As directed [diabetic shoes with 3 inserts As directed] empagliflozin (Jardiance) 10 mg PO DAILY 30 days famotidine 20 mg PO DAILY ferrous sulfate 325 mg PO DAILY 90 days flash glucose scanning reader (FreeStyle Carola 2 [place]) As directed flash glucose sensor (FreeStyle Carola 2 Sensor kit) USE DIRECTED TO TEST BLOOD SUGAR CHANGE EVERY 14 DAYS insulin degludec (Tresiba FlexTouch U-200 insulin) 65 units (0.325 mL) subcut DAILY insulin lispro (Humalog KwikPen (U-100) Insulin) 35 units (0.35 mL) subcut TID 30 days lancets (TRUEplus Lancets) TEST BLOOD SUGAR FOUR TIMES DAILY lancets (TRUEplus Lancets) TEST BLOOD SUGAR FOUR TIMES DAILY linaclotide (Linzess) 72 mcg PO QAM magnesium oxide 250 mg PO BID memantine 5 mg PO BID metoclopramide HCl 5 mg PO TID metoprolol succinate ER 100 mg PO QAM pen needle, diabetic As directed pen needle, diabetic (UltiCare Pen Needle) USE THREE TIMES DAILY simethicone 180 mg PO TID tamoxifen 20 mg PO BEDTIME 30 days valsartan 320 mg PO .every evening HPI Comments Details: 77-year-old woman with a history of obesity and diabetes mellitus with its chronic kidney disease has been referred for evaluation of CKD. She has had high attention and diabetes medicines 1996. Upon reviewing the labs it appears that the blood sugars have been suboptimally controlled with a hemoglobin A1c of around 10%. She was also found to have significant proteinuria. She is on a maximum dose of valsartan of 320 mg. Baseline serum creatinine is between 1.11.2 mg/dL. In April the serum creatinine was 1.35 and 1.49 mg/dL. And hence this referral 11/08/23: Overall doing OK. Accompanied by daughter c/o abdominal distention - always and she keeps spitting frequently. No vomiting Account Maintenance Representative service was used 01/12/24;c/o cough and vomiting 06/15/24;Overall doing well. JArdiance was added in Mar 15 ; 07/17/2024. Feels dizzy today. She has bloating in the stomach. No nausea or vomiting. [facility] Medical History CKD (chronic kidney disease) stage 3, GFR 30-59 ml/min Acute stroke due to ischemia Abdominal bloating Elevated TSH Preoperative clearance Bilateral leg pain Urticaria Obesity (BMI 30-39.9) Diabetic nephropathy associated with type 2 diabetes mellitus Nausea and vomiting Microalbuminuria due to type 2 diabetes mellitus Paroxysmal atrial fibrillation Slurred speech History of endometrial cancer Depression Iron deficiency anemia History of left breast cancer Hypothyroidism Schizophrenia shelter (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 Sitting blood pressure 100/60 Standing blood pressure 100/60. Appears tired Neck supple no JVD. Lungs entry equal no rales. Heart S1-S2 heard no gallop or rub. Abdomen soft nontender. Neuro alert awake oriented. No asterixis. Extremities no edema. Results Reviewed Nephrology Results: Hgb 11.0 g/dl (12.0-16.0) L 05/21/24 WBC 7.6 X10*3/uL (4.8-10.8) 05/21/24 Plt Count 228 X10*3/uL (160-400) 05/21/24 Sodium 140 mmol/L (135-145) 06/15/24 Potassium 4.6 mmol/L (3.3-5.1) 06/15/24 Chloride 109 mmol/L (96-108) H 06/15/24 Carbon Dioxide 22 mmol/L (22-29) 06/15/24 BUN 32 mg/dL (9-16) H 06/15/24 Creatinine 1.53 mg/dL (0.5-1.4) H 06/15/24 Calcium 9.6 mg/dL (8.4-10.2) 06/15/24 Assessment & Plan Assessment & Plan (1) Hypertension: Code(s): I10 - Essential (primary) hypertension Category: Medical Qualifiers: Hypertension type: essential hypertension Qualified Code(s): I10 - Essential (primary) hypertension Plan: Goal is to maintain blood pressure less than 130/80. Discussed weight loss. She should stay on low-sodium diet. Continue with current antihypertensive regimen. Blood pressure was relatively low today. Change valsartan to 320 mg q.p.m. instead of q.a.m. (2) CKD (chronic kidney disease) stage 3, GFR 30-59 ml/min: Code(s): N18.30 - Chronic kidney disease, stage 3 unspecified Category: Medical Plan: CKD 3 with about 1 g of proteinuria in setting of longstanding diabetes mellitus. She probably has underlying diabetic nephropathy. There could be a component of CASS. Differential diagnosis would include hypoperfusion. She had a CT scan back in October which did not reveal any significant obstruction. Glomerulonephritis and interstitial disease seem Anemia due to CKD Hemoglobin remained stay Goal is to slow the progression of renal disease. Discussed importance of tight control of blood sugar and maintain hemoglobin A1c less than 7%. Agree with maximizing ARB. She will benefit from the addition of SGLT 2 inhibitor. Renal ultrasonogram unremarkable in October 2023 Stomach fullness due to gastroparesis Continue with metoclopramide Orders: Orders Basic Metabolic Panel 4 Weeks Bronson Barclay MD N18.9 - Chronic kidney disease, unspecified Medications: Changed From valsartan 320 mg PO DAILY 90 tabs 2RF To valsartan 320 mg PO .every evening Yesi Perez MD Coding Level of Care Code Est Pt Level 5 (99953) Diagnoses Essential hypertension I10 Hypertension type: essential hypertension CKD (chronic kidney disease) stage 3, GFR 30-59 ml/min N18.30
--- OUTSIDE RECORDS SUMMARY | 2024-07-17 12:51 | XMS_ITS | Encounter Summary ---
Author Organization [employer] Address [address] [facility] 7t [place] [address] Care Team Providers Care Power Grader Operator Name Role Phone Lois Salazar MD Primary Care Provider [phone] Jono Pérez PharmD Unavailable [phone] Reason for Visit * Reason Comments Med Refill Encounter Details Date Type Department Care Team ([facility] st Contact Info) Description 07/13/2024 Refill [facility] MEDICINE [address] [place], [place] [phone] Lois Salazar MD [address] [place], [place] [phone] Social History Tobacco Use Types Packs/Day Years [...] 10:30 AM EDT Office Visit [facility] ADULT DENTAL [address] [place] [address] [place] DDS [address] [place] [address] 08/09/2024 9:30 AM EDT Office Visit [facility] MEDICINE [address] [place] [address] Lois Salazar MD [address] [place] [address] 10/03/2024 2:00 PM EDT Medication Management [facility] MEDICINE [address] [place] [address] Jono Pérez PharmD [address] [place] [address] documented as of this encounter Goals Goal Patient Goal Type Associated Problems Recent Progress Patient-Stated? Author Blood Pressure < 140/90 Blood Pressure 148/80( 025 9:17 AM EST) No Jono Pérez PharmBlane documented as of this encounter Visit Diagnoses Not on filedocumented in this encounter Additional Health Concerns Assessment Noted Time PHQ-9 Depression Total Score: 2 09/20/19 24 9:42 AM EDT documented as of this encounter Care Teams Power Grader Operator Relationship Specialty Start Date End Date Lois Salazar MD [address] [place] [address] PCP - General Family Medicine 05/27/23 Jono Pérez, CharlesD [address] [place] [address] Pharmacist Internal Medicine 07/04/23 documented as of this encounter
--- OUTSIDE RECORDS SUMMARY | 2024-07-17 12:51 | XMS_ITS | Encounter Summary ---
Author Organization [employer] Address [address] [facility] 7t [place] [address] Care Team Providers Care Laborer Cheesemaking Name Role Phone Lois Salazar MD Primary Care Provider Jono Pérez PharmD Unavailable [phone] Reason for Visit * Reason Onset Date Comments Durable Medical Equipment 11/28/2023 Encounter Details Date Type Department Care Team ([facility] st Contact Info) Description 11/28/2023 Telephone [facility] MEDICINE [address] [place], [place] [phone] Lois Salazar MD [address] [place], [place] [phone] Durable Medical Equipment Social History Tobacco Use [...] Description 08/07/2024 10:30 AM EDT Office Visit [facility] ADULT DENTAL [address] [place] [address] [facility] D[facility] [address] [place] [address] 08/09/2024 9:30 AM EDT Office Visit [facility] MEDICINE [address] [place] [address] Lois Salazar MD [address] [place] [address] 10/03/2024 2:00 PM EDT Medication Management [facility] MEDICINE [address] [place] [address] Jono Pérez, PharmD [address] [place] [address] documented as of this encounter Goals Goal [...] documented as of this encounter Care Teams Laborer Cheesemaking Relationship Specialty Start Date End Date Lois Salazar MD [address] [place] [address] PCP - General Family Medicine 05/27/23 Jono Pérez, PharmD [address] [place] [address] Pharmacist Internal Medicine 07/04/23 documented as of this encounter
--- OUTSIDE RECORDS SUMMARY | 2024-07-17 12:51 | XMS_ITS | Encounter Summary ---
Author Organization [employer] Address [address] [facility] 7t [place] [address] Care Team Providers Care Icu Nurse Name Role Phone Lois Salazar MD Primary Care Provider [phone] Jono Pérez PharmD Unavailable [phone] Encounter Details Date Type Department Care Team (Late st Contact Info) Description 12/18/2023 Orders Only [facility] MEDICINE [address] [place], [place] [phone] Lois Salazar MD [address] [place], [place] [phone] Social History Tobacco Use Types Packs/Day Years [...] Description 08/07/2024 10:30 AM EDT Office Visit [facility] ADULT DENTAL [address] [place] [address] [place] DDS [address] [place] [address] 08/09/2024 9:30 AM EDT Office Visit [facility] MEDICINE [address] [place] [address] Lois Salazar MD [address] [place] [address] 10/03/2024 2:00 PM EDT Medication Management [facility] MEDICINE [address] [place] [address] Jono Pérez PharmD [address] [place] [address] documented as of this encounter Goals Goal [...] documented as of this encounter Care Teams Icu Nurse Relationship Specialty Start Date End Date Lois Salazar MD [address] [place] [address] PCP - General Family Medicine 05/27/23 Jono Pérez, CharlesD [address] [place] [address] Pharmacist Internal Medicine 07/04/23 documented as of this encounter
--- OUTSIDE RECORDS SUMMARY | 2024-07-17 12:51 | XMS_ITS | Encounter Summary ---
Author Organization [employer] Address [address] [facility] 7t [place] [address] Care Team Providers Care Instrument Man Name Role Phone Lois Salazar MD Primary Care Provider [phone] Jono Pérez PharmD Unavailable [phone] Encounter Details Date Type Department Care Team (Late st Contact Info) Description 10/11/2023 Abstract [facility] MEDICINE [address] [place], [place] [phone] Lois Salazar MD [address] [place], [place] [phone] Social History Tobacco Use Types Packs/Day Years [...] Description 08/07/2024 10:30 AM EDT Office Visit [facility] ADULT DENTAL [address] [place] [address] [facility] [place] DDS [address] [place] [address] 08/09/2024 9:30 AM EDT Office Visit [facility] MEDICINE [address] [place] [address] Lois Salazar MD [address] [place] [address] 10/03/2024 2:00 PM EDT Medication Management [address] [address] Jono Pérez, PharmD [address] [place] [address] documented as of this encounter Goals Goal [...] documented as of this encounter Care Teams Instrument Man Relationship Specialty Start Date End Date Lois Salazar MD [address] [place] [address] PCP - General Family Medicine 05/27/23 Jono Pérez, CharlesD [address] [place] [address] Pharmacist Internal Medicine 07/04/23 documented as of this encounter
--- OUTSIDE RECORDS SUMMARY | 2024-07-17 12:52 | XMS_ITS | Encounter Summary ---
Author Organization [employer] [facility] Address [address] [facility] 7t [place] [address] Care Team Providers Care General Lithographic Worker Name Role Phone Lois Salazar MD Primary Care Provider [phone] Jono Pérez PharmD Unavailable [phone] Encounter Details Date Type Department Care Team (Late Contact Info) Description 12/20/2022 Telephone [facility] ADULT DENTAL [address] [place] [address] [place] DDS [address] [place] [address] Social History Tobacco Use Types Packs/Day Years [...] Description 08/07/2024 10:30 AM EDT Office Visit [facility] ADULT DENTAL [address] [place] [address] [place] DDS [address] [place] [address] 08/09/2024 9:30 AM EDT Office Visit [facility] MEDICINE [address] [place] [address] Lois Salazar MD [address] [place] [address] 10/03/2024 2:00 PM EDT Medication Management [address] [address] Jono Pérez, Mitch [address] [place] [address] documented as of this encounter Visit Diagnoses Not on filedocumented in this encounter Care Teams General Lithographic Worker Relationship Specialty Start Date End Date Lois Salazar MD [address] [place] [address] [phone] PCP - General Family Medicine 05/27/23 Jono Pérez, PharmD [address] [place] [address] [phone] Pharmacist Internal Medicine 07/04/23 documented as of this encounter
--- OUTSIDE RECORDS SUMMARY | 2024-07-17 12:52 | XMS_ITS | Encounter Summary ---
Author Organization [employer] [facility] [facility] Address [address] [facility] 7t [place] [address] Care Team Providers Care Forestry Patrolman Name Role Phone Lois Salazar MD Primary Care Provider [phone] Jono Pérez PharmD Unavailable [phone] Encounter Details Date Type Department Care Team (Latest Contact Info) Description 03/03/2021 Abstract [facility] CONVERSIONS Dental, Provider, DDS Social [...] Description 08/07/2024 10:30 AM EDT Office Visit [facility] ADULT DENTAL [address] [place] [address] [place] DDS [address] [place] [address] 08/09/2024 9:30 AM EDT Office Visit [facility] MEDICINE [address] [place] [phone] Lois Salazar MD [address] [place] [address] 10/03/2024 2:00 PM EDT Medication Management [facility] MEDICINE [address] [place] [address] Jono Pérez, PharmD [address] [place] [address] documented as of this encounter Visit Diagnoses Not on filedocumented in this encounter Care Teams Forestry Patrolman Relationship Specialty Start Date End Date Lois Salazar MD [address] [place] [address] PCP - General Family Medicine 05/27/23 Jono Pérez, CharlesD [address] [place] [address] Pharmacist Internal Medicine 07/04/23 documented as of this encounter
--- OUTSIDE RECORDS SUMMARY | 2024-07-17 12:52 | XMS_ITS | Encounter Summary ---
Author Organization [employer] Address [address] [facility] 7t [place] [address] Care Team Providers Care Motorcyles Final Inspector Name Role Phone Lois Salazar MD Primary Care Provider [phone] Jono Pérez PharmD Unavailable [phone] Encounter Details Date Type Department Care Team (Late st Contact Info) Description 07/05/2024 Orders Only [facility] External Provider, [facility] Social History Tobacco Use Types Packs/Day Years [...] Description 08/07/2024 10:30 AM EDT Office Visit [facility] ADULT DENTAL [address] [place] [address] [place] DDS [address] [place] [address] 08/09/2024 9:30 AM EDT Office Visit [facility] MEDICINE [address] [place] [address] Lois Salazar MD [address] [place] [address] 10/03/2024 2:00 PM EDT Medication Management [facility] [address] [place] [address] Jono Pérez PharmD [address] [place] [address] documented as of this encounter Goals Goal Patient Goal Type Associated Problems Recent Progress Patient-Stated? Author Blood Pressure < 140/90 Blood Pressure 148/80( 025 9:17 AM EST) No Jono Pérez, PharmD documented as of this encounter Procedures Procedure Name Priority Date/Time Associated Diagnosis Comments BD DEXA AXIAL Routine 07/05/2024 11:00 AM EST BI MAMMOGRAM SCREENING TOMOSYNTHESIS BILATERAL Routine 07/05/2024 10:50 AM EST documented in this encounter Results * BD DEXA Axial (07/05/2024 11:00 AM EST) Anatomical Region Laterality Modality Body Radiographic Jessica ging 07/05/2024 11:0 0 AM EST Narrative 07/05/2024 11:48 AM EST ? [facility] ? [address] ?[place] [address] ? Mammography Report ? Signed ? Patient: Carter,Catherine ?MR#: [id number] ?? 95 ? : 1945 ?Acct:[id number] ? Age/Sex: 78 / F ?ADM Date: 07/05/24 ? Loc: HO.MAMMO ? Attending Dr: Kalpana Iqbal MD ? Ordering Physician: Kalpana Iqbal MD ?Results: ? Date of Service: 07/05/24 ?Follow Up: ? Procedure(s): XR DEXA axial skeleton ?? Accession Number(s): [id number] ? cc: Kalpana Iqbal MD; Lois Salazar MD ? EXAMINATION: ??DXA BONE DENSITY AXIAL ? HISTORY: ??Estrogen deficiency ? TECHNIQUE: [employer] Dual energy absorptiometry (DEXA) ?? of the lumbar spine, total left hip, and femoral neck was performed. ? COMPARISON: Comparison is made with the prior examination dated ?? 12/10/2016. ? FINDINGS: ? The bone mineral density of the lumbar spine is 1.460 with a T-score of ?? 2.3, and a Z-score of 3.3. ? This represents a BMD change of 10.4% compared to the prior exam. ??This ?? is statistically significant. ? The bone mineral density of the left total hip is 0.986 with a T-score ?? of -0.2, and a Z-score of 1.2. ? This represents BMD change of -4.4% compared to the prior exam. ??This ?? is statistically significant. ? The bone mineral density of the left femoral neck is 0.897 with a ?? T-score of -1.0, and a Z-score of 0.5. ? This represents BMD change of 11.4% compared to the prior exam. ? MM/XR DEXA axial skeleton ?? IMPRESSION: ?? Based on bone mineral density, and according to World Health ?? Organization (WHO) criteria, the diagnosis is consistent with normal ?? bone mineral density. ? All bone density values are in grams per centimeter squared (g/cm2). ?? Statistically, 68% of repeat scans fall within 1 SD (+/- 0.010 g/cm2 ?? for AP spine L1-L4) and 1 SD (+/- 0.012 g/cm2 for femur total) ?? FRAX is a trademark of the [employer]'s ?? [employer] for Metabolic Bone Disease, a World Health Organization (WHO) ?? Collaborating Center. ? Electronically signed by: ??David Garcia MD ??07/05/2024 11:45 AM EST ?? RP ? Dictated By: ?David Garcia MD ? Signed By: ?<Electronically signed by David Garcia MD in OV> ?07/05/24 1145 ? DD/ 1100 ? TD/TT: 07/05/24 1130 ? Weaver Apprentice: ? Procedure Note Ministerio, Image - 07/05/2024 [place] [facility] [address] [place] [address] Mammography Report Signed Patient: Alo MachadoKatelynn#: [id number] 95 : 6Acct:[id number] Age/Sex: 78 / FADM Date: 07/05/24 Loc: [facility] Attending Dr: Kalpana Iqbal MD Ordering Physician: Kalpana Iqbalesults: Date of Service: 07/05/24Follow Up: Procedure(s): XR DEXA axial skeleton Accession Number(s): [id number] cc: Kalpana Iqbal MD; Lois Salazar MD EXAMINATION: DXA BONE DENSITY AXIAL HISTORY: Estrogen deficiency TECHNIQUE: [employer] Dual energy absorptiometry (DEXA) of the lumbar spine, total left hip, and femoral neck was performed. COMPARISON: Comparison is made with the prior examination dated 12/10/2016. FINDINGS: The bone mineral density of the lumbar spine is 1.460 with a T-score of 2.3, and a Z-score of 3.3. This represents a BMD change of 10.4% compared to the prior exam. This is statistically significant. The bone mineral density of the left total hip is 0.986 with a T-score of -0.2, and a Z-score of 1.2. This represents BMD change of -4.4% compared to the prior exam. This is statistically significant. The bone mineral density of the left femoral neck is 0.897 with a T-score of -1.0, and a Z-score of 0.5. This represents BMD change of 11.4% compared to the prior exam. MM/XR DEXA axial skeleton IMPRESSION: Based on bone mineral density, and according to World Health Organization (WHO) criteria, the diagnosis is consistent with normal bone mineral density. All bone density values are in grams per centimeter squared (g/cm2). Statistically, 68% of repeat scans fall within 1 SD (+/- 0.010 g/cm2 for AP spine L1-L4) and 1 SD (+/- 0.012 g/cm2 for femur total) FRAX is a trademark of the [employer]'s [employer] Metabolic Bone Disease, a World Health Organization (WHO) Collaborating Center. Electronically signed by: David Garcia MD 07/05/2024 11:45 AM EST RP Dictated By: David Garcia MD Signed By: <Electronically signed by David Garcia MD in OV> 07/05/24 1145 DD/ 1100 TD/TT: 07/05/24 1130 Weaver Apprentice: [facility] External Provider IMG DXA PROCEDURES Edited Result - Final * BI Mammogram Screening Tomosynthesis Bilateral (07/05/2024 10:50 AM EST) Anatomical Region Laterality Modality Breast Bilateral Mammography 07/05/2024 10:5 0 AM EST Narrative 07/14/2024 11:51 AM EST ? [facility] ? [address] ?[place] [address] ? Mammography Report ? Signed ? Patient: Carter,Catherine ?MR#: [id number] ?? 95 ? : 1945 ?Acct:[id number] ? Age/Sex: 78 / F ?ADM Date: 07/05/ ? Loc: HO.MAMMO ? Attending Dr: Kalpana Iqbal MD ? Ordering Physician: Kalpana Iqbal MD ?Results: 2Benig ?? n Findings ? Date of Service: 07/05/ ?Follow Up: 1 Year From Orig ?? inal Mammogram ? Procedure(s): MM tomosynthesis screening BI ?? Accession Number(s): [id number] ? cc: Kalpana Iqbal MD; Lois Salazar MD ? EXAMINATION: ?? MM SCREENING DIGITAL BREAST TOMOSYNTHESIS, BILATERAL ? CLINICAL INFORMATION: ? Screening. Asymptomatic. ??History of left breast cancer. ? COMPARISON: ?? Mammography: Comparison is made with available priors ? TECHNIQUE: ?? Digital breast mammography with tomosynthesis is performed in both the ?? craniocaudal and mediolateral oblique views along with computer-aided ?? detection (CAD). ? FINDINGS: ?? There are scattered areas of fibroglandular density (ACR BI-RADS breast ?? composition Category b). ?? Bilateral scattered asymmetries are stable. ?? Left post lumpectomy changes are stable. ?? There are no significant masses, abnormal calcifications, or other ?? abnormalities. ? MM/MM tomosynthesis screening BI ?? IMPRESSION: ?? No mammographic evidence of malignancy. ? ASSESSMENT: ? BI-RADS BI-RADS 2 - Benign Findings ? RECOMMENDATION: ?? Routine annual mammography screening. ? 1 year F/U ? This examination should not preclude the clinical evaluation of a ?? suspicious palpable abnormality. ? This patient's information was entered into a reminder system with a ?? target due date for their next mammogram. ? Electronically signed by: ??Melinda Rodarte DO ??07/14/2024 11:49 AM EST ? Dictated By: ?Melinda Rodarte DO ? Signed By: ?<Electronically signed by Melinda Rodarte, DO in OV> ? 07/14/24 1149 ? DD/ 1050 ? TD/TT: 07/05/24 1113 ? Weaver Apprentice: ? Procedure Note Bárbara Mandel - 07/14/2024 [facility] [address] [place] [address] Mammography Report Signed Patient: Alo MachadoKatelynn#: [id number] 95 : 6Acct:[id number] Age/Sex: 78 / FADM Date: 07/05/24 Loc: HO.MAMMO Attending Dr: Kalpana Iqbal MD Ordering Physician: Kalpana Iqbal MDResults: 2Benig n Findings Date of Service: 07/05/24Follow Up: 1 Year From [facility] ina Mammogram Procedure(s): MM tomosynthesis screening BI Accession Number(s): [id number] cc: Kalpana Iqbal MD; oLis Salazar MD EXAMINATION: MM SCREENING DIGITAL BREAST TOMOSYNTHESIS, BILATERAL CLINICAL INFORMATION: Screening. Asymptomatic. History of left breast cancer. COMPARISON: Mammography: Comparison is made with available priors TECHNIQUE: Digital breast mammography with tomosynthesis is performed in both the craniocaudal and mediolateral oblique views along with computer-aided detection (CAD). FINDINGS: There are scattered areas of fibroglandular density (ACR BI-RADS breast composition Category b). Bilateral scattered asymmetries are stable. Left post lumpectomy changes are stable. There are no significant masses, abnormal calcifications, or other abnormalities. MM/MM tomosynthesis screening BI IMPRESSION: No mammographic evidence of malignancy. ASSESSMENT: BI-RADS BI-RADS 2 - Benign Findings RECOMMENDATION: Routine annual mammography screening. 1 year F/U This examination should not preclude the clinical evaluation of a suspicious palpable abnormality. This patient's information was entered into a reminder system with a target due date for their next mammogram. Electronically signed by: Melinda Rodarte DO 07/14/2024 11:49 AM [facility] Dictated By: Melinda Rodarte DO Signed By: <Electronically signed by Melinda Rodarte DO in OV> 07/14/24 1149 DD/ 1050 TD/TT: 07/05/24 1113 Weaver Apprentice: [facility] External Provider IMG BI PROCEDURES Edited Result - Final documented in this encounter Visit Diagnoses Not on filedocumented in this encounter Additional Health Concerns Assessment Noted Time PHQ-9 Depression Total Score: 2 09/20/19 24 9:42 AM EDT documented as of this encounter Care Teams Motorcyles Final Inspector Relationship Specialty Start Date End Date Lois Salazar MD [address] [place] [address] PCP - General Family Medicine 05/27/23 Jono Pérez, CharlesD [address] [place] [address] Pharmacist Internal Medicine 07/04/23 documented as of this encounter
--- OUTSIDE RECORDS SUMMARY | 2024-07-17 12:52 | XMS_ITS | Encounter Summary ---
Author Organization [employer] [facility] Address [address] [facility] 7t [place] [address] Care Team Providers Care Closet Organizer Name Role Phone Lois Salazar MD Primary Care Provider Jono Pérez PharmD Unavailable [phone] Encounter Details Date Type Department Care Team (Late st Contact Info) Description 07/23/2022 Abstract [facility] ADULT DENTAL [address] [place] [address] Angie Bean DDS [address] [place], [place] [phone] Social History Tobacco Use Types Packs/Day Years [...] Description 08/07/2024 10:30 AM EDT Office Visit [facility] ADULT DENTAL [address] [place] [address] [place] DDS [address] [place] [address] 08/09/2024 9:30 AM EDT Office Visit [facility] MEDICINE [address] [place] [address] Lois Salazar MD Johanny [place], [place] [phone] 10/03/2024 2:00 PM EDT Medication Management [facility] MEDICINE [address] [place] [address] [phone] Jono Pérez, Mitch [address] [place] [address] documented as of this encounter Visit Diagnoses Not on filedocumented in this encounter Care Teams Closet Organizer Relationship Specialty Start Date End Date Lois Salazar MD [address] [place] [address] [phone] PCP - General Family Medicine 05/27/23 Jono Pérez, PharmD [address] [place] [address] [phone] Pharmacist Internal Medicine 07/04/23 documented as of this encounter
--- OUTSIDE RECORDS SUMMARY | 2024-07-17 12:52 | XMS_ITS | Clinical Summary ---
Author Organization [facility] Address [address] [place] [address] Care Team Providers Care Head Loft Worker Name Role Phone Yesi Linares MD Primary Care Provider [phone] Medications amLODIPine (NORVASC) 10 MG tablet Take [...] patient's age to complete this topic Insurance [address] FLAT DUAL MCR/KAYCEE ([id number]) RAIL ROAD FLAT DUAL MCR/KAYCEE ([id number]) Care Teams Head Loft Worker Relationship Specialty Start Date End Date Yesi Linares MD [address] [place], [place] PCP - General 06/02/20
--- OUTSIDE RECORDS SUMMARY | 2024-07-17 12:52 | XMS_ITS | Encounter Summary ---
Author Organization [employer] Address 75 [facility] 7t [place] [address] Care Team Providers Care Salesperson China And Glassware Name Role Phone Lois Salazar MD Primary Care Provider [phone] Jono Pérez PharmD Unavailable [phone] Encounter Details Date Type Department Care Team (Late st Contact Info) Description 10/05/2023 Orders Only [facility] MEDICINE [address] [place], [place] [phone] Lois Salazar MD [address] [place], [place] [phone] Social History Tobacco Use Types Packs/Day Years [...] Description 08/07/2024 10:30 AM EDT Office Visit [facility] ADULT DENTAL [address] [place] [address] Tr [place] DDS [address] [place] [address] 08/09/2024 9:30 AM EDT Office Visit [facility] MEDICINE [address] [place] [address] Lois Salazar MD [address] [place] [address] 10/03/2024 2:00 PM EDT Medication Management [facility] [address] [place] [phone] Jono Pérez PharmD [address] [place] [address] documented as of this encounter Goals Goal [...] documented as of this encounter Care Teams Salesperson [employer] Relationship Specialty Start Date End Date Lois Salazar MD [address] [place] [address] PCP - General Family Medicine 05/27/23 Jono Pérez, CharlesD [address] [place] [address] Pharmacist Internal Medicine 07/04/23 documented as of this encounter
--- OUTSIDE RECORDS SUMMARY | 2024-07-17 12:52 | XMS_ITS | Encounter Summary ---
Author Organization [employer] [facility] Address 75 [facility] 7[address] [place] [address] Care Team Providers Care Motor Grader Rough Grade Name Role Phone Lois Salazar MD Primary Care Provider [phone] Jono Pérez PharmD Unavailable [phone] Reason for Referral * Consultation (Routine) - Pending Review Specialty Diagnoses / Procedures Referred By Marta flores Referred To Contact Pharmacy Diagnoses Essential hypertension Type 2 diabetes mellitus with hyperglycemia, with long-term current use of insulin (CMS/HCC) Lois Salazar MD [address] [place] [address] Phone: tel: fax: Referral ID Status Reason Start Date Expiration Date Visits Requested Visits Authorized [id number] Pending Review Consult and Treat 4 04/03/2025 6 6 Encounter Details Date Type Department Care Team ([facility] st Contact Info) Description 04/03/2024 Orders Only [facility] MEDICINE [address] [place] [address] [phone] Lois Salazar MD [address] [place], [place] [phone] Essential hypertension (Primary Dx); Type 2 diabetes [...] 08/07/2024 10:30 AM EDT Office Visit [facility] ADULT DENTAL [address] [place] [address] [place] DDS [address] [place] [address] 08/09/2024 9:30 AM EDT Office Visit [facility] MEDICINE [address] [place] [address] Lois Salazar MD [address] [place] [address] 10/03/2024 2:00 PM EDT Medication Management [address] [address] Jono Pérez, Mitch [address] [place] [address] Scheduled Referrals Name Type Priority Associated Diagnoses Orde r Schedule Referral to Pharmacy CDTM Outpatient Referral Routine Essential hypertension Type 2 diabetes mellitus with hyperglycemia, with long-term current use of insulin ([facility]) Ordered: 04/03/2024 documented as of this encounter Goals Goal Patient Goal Type Associated Problems Recent Progress Patient-Stated? Author Blood Pressure < 140/90 Blood Pressure 148/80( 025 9:17 AM EST) No Jono Pérez, Mitch documented as of this encounter Visit Diagnoses Diagnosis Essential hypertension- Primary Unspecified essential hypertension Type 2 diabetes mellitus with hyperglycemia, with long-term current use of insulin ([facility]) documented in this encounter Additional Health Concerns Assessment Noted Time PHQ-9 Depression Total Score: 2 09/20/19 24 9:42 AM EDT documented as of this encounter Care Teams Motor Grader Rough Grade Relationship Specialty Start Date End Date Lois Salazar MD [address] [place] [phone] PCP - General Family Medicine 05/27/23 Jono Pérez, PharmD [address] [place] [phone] Pharmacist Internal Medicine 07/04/23 documented as of this encounter
--- OUTSIDE RECORDS SUMMARY | 2024-07-17 12:52 | XMS_ITS | Encounter Summary ---
Author Organization [employer] [facility] Address [address] [facility] 7t [place] [address] Care Team Providers Care Primary School Principal Name Role Phone Lois Salazar MD Primary Care Provider [phone] Jono Pérez PharmD Unavailable [phone] Encounter Details Date Type Department Care Team (Late Contact Info) Description 03/04/[address] [facility] ADULT DENTAL [address] [place] [address] [place] DDS [address] [place] [address] Social History Tobacco Use Types Packs/Day Years [...] Description 08/07/2024 10:30 AM EDT Office Visit [facility] ADULT DENTAL [address] [place] [address] [place] DDS [address] [place] [address] 08/09/2024 9:30 AM EDT Office Visit [facility] MEDICINE [address] [place] [address] Lois Salazar MD [address] [place] [address] 10/03/2024 2:00 PM EDT Medication Management [facility] MEDICINE [address] [place], [place] [phone] Jono Pérez, PharmD [address] [place] [address] documented as of this encounter Visit Diagnoses Not on filedocumented in this encounter Care Teams Primary School Principal Relationship Specialty Start Date End Date Lois Salazar MD [address] [place] [address] [phone] PCP - General Family Medicine 05/27/23 Jono Pérez, PharmD [address] [place] [address] [phone] Pharmacist Internal Medicine 07/04/23 documented as of this encounter
--- OUTSIDE RECORDS SUMMARY | 2024-07-17 12:52 | XMS_ITS | Encounter Summary ---
Author Organization [employer] [facility] Address [address] [facility] 7t [place] [address] Care Team Providers Care Feather Curling Machine Operator Name Role Phone Lois Salazar MD Primary Care Provider [phone] Jono Pérez PharmD Unavailable [phone] Reason for Visit * Reason Onset Date Comments insurance 05/12/2023 Encounter Details Date Type Department Care Team ([facility] Contact Info) Description 05/12/2023 Telephone [facility] ADULT DENTAL [address] [place] [address] [place] DDS [address] [place] [address] insurance Social History Tobacco Use Types Packs/Day [...] Description 08/07/2024 10:30 AM EDT Office Visit [facility] ADULT DENTAL [address] [place] [address] [place] DDS [address] [place] [address] 08/09/2024 9:30 AM EDT Office Visit [facility] MEDICINE [address] [place] [address] Lois Salazar MD [address] [place] [address] 10/03/2024 2:00 PM EDT Medication Management [facility] [address] [place] [address] Jono Pérez, PharmD [address] [place] [address] documented as of this encounter Visit Diagnoses Not on filedocumented in this encounter Care Teams Feather Curling Machine Operator Relationship Specialty Start Date End Date Lois Salazar MD [address] [place] [address] [phone] PCP - General Family Medicine 05/27/23 Jono Pérez, PharmD [address] [place] [address] [phone] Pharmacist Internal Medicine 07/04/23 documented as of this encounter
--- OUTSIDE RECORDS SUMMARY | 2024-07-17 12:52 | XMS_ITS | Encounter Summary ---
Author Organization [facility] Address [address] [facility] 7t [place] [address] Care Team Providers Care Real Estate Legal Assistant Name Role Phone Lois Salazar MD Primary Care Provider Jono Pérez PharmD Unavailable [phone] Encounter Details Date Type Department Care Team (Late st Contact Info) Description 07/23/2022 Abstract [facility] ADULT DENTAL [address] [place] [address] Angie Bean DDS [address] [place], [place] [phone] Social History Tobacco Use Types Packs/Day Years [...] [facility] ADULT DENT[facility] [address] [place] [address] [place] DDS [address] [place] [address] 08/09/2024 9:30 AM EDT Office Visit [facility] MEDICINE [address] [place] [address] Lois Salazar MD Johanny [place], [place] [phone] 10/03/2024 2:00 PM EDT Medication Management [facility] MEDICINE [address] [place] [address] [phone] Jono Pérez, Mitch [address] [place] [phone] documented as of this encounter Visit Diagnoses Not on filedocumented in this encounter Care Teams Real Estate Legal Assistant Relationship Specialty Start Date End Date Lois Salazar MD [address] [place] [address] [phone] PCP - General Family Medicine 05/27/23 Jono Pérez, PharmD [address] [place] [address] [phone] Pharmacist Internal Medicine 07/04/23 documented as of this encounter
--- OUTSIDE RECORDS SUMMARY | 2024-07-17 12:52 | XMS_ITS | Encounter Summary ---
Author Organization [employer] Address [address] [facility] 7t [place] [address] Care Team Providers Care Metal Patternmaker Apprentice Name Role Phone Lois Salazar MD Primary Care Provider [phone] Jono Pérez PharmD Unavailable [phone] Reason for Visit * Reason Comments Med Refill Encounter Details Date Type Department Care Team ([facility] st Contact Info) Description 07/04/2024 Refill [facility] MEDICINE [address] [place], [place] [phone] Lois Salazar MD [address] [place], [place] [phone] Essential hypertension Social History Tobacco Use Types [...] Description 08/07/2024 10:30 AM EDT Office Visit [facility] ADULT DENTAL [address] [place] [address] [place] DDS [address] [place] [address] 08/09/2024 9:30 AM EDT Office Visit [facility] MEDICINE [address] [place] [phone] Lois Salazar MD [address] [place] [address] 10/03/2024 2:00 PM EDT Medication Management [address] [address] Jono Pérez PharmD [address] [place] [address] documented as of this encounter Goals Goal [...] documented as of this encounter Care Teams Metal Patternmaker Apprentice Relationship Specialty Start Date End Date Lois Salazar MD [address] [place] [address] PCP - General Family Medicine 05/27/23 Jono Pérez, PharmD [address] [place] [phone] Pharmacist Internal Medicine 07/04/23 documented as of this encounter
--- OUTSIDE RECORDS SUMMARY | 2024-07-17 12:52 | XMS_ITS | Encounter Summary ---
Author Organization [employer] Address [address] [facility] 7t [place] [address] Care Team Providers Care Piece Cutter Name Role Phone Lois Salazar MD Primary Care Provider [phone] Jono Pérez PharmD Unavailable [phone] Reason for Visit * Reason Comments Routine Cleaning Dental Exam Encounter Details Date Type Department Care Team ([facility] st Contact Info) Description 07/04/2024 9:00 AM EST Office Visit [facility] ADULT DENTAL [address] [facility] [place] [address] Shivani Pan Excessive attrition of teeth, limited [...] Timeout Time: 912 (Dental Prophy Adult) Location: [facility] Tooth: Maxilla and Mandible Procedure: Exam and Prophylaxis Verified the above with patient, insurance legal assistant, and provider. Confirmed via patient's chart, intraorally and by radiographs. Glue Spreading Machine Operator: not applicable Chief Complaint Patient presents with Routine Cleaning Dental Exam Medical Hx: Vitals: Blood pressure (!) 148/80. Past Medical History: Diagnosis Date Abnormal mammography 09/20/2023 Dental abscess 02/04/2023 Diabetes mellitus ([facility]) Hypertension Open fracture of tooth 02/04/2023 Sprain [...] Blood Gluc Sensor (FreeStyle Carola 2 Sensor) [facility] USE DIRECTED CHANGE EVERY 14 DAYS Diclofenac [...] Cancer Risk: Moderate Risk Oral Hygiene Instructions: Brunswick two times daily, modified ashton technique, Floss daily, Electric toothbrush, Soft bristle toothbrush, Brunswick Tongue Caries Risk Assessment: Medium- one risk factor Assessment/Plan SERGIO X Rays Prophy Medical clearance (provided) for pre existing medical conditions Apply for max. Denture Extractions after full denture fabrication Patient tolerated procedure well, all questions answered and expressed understanding. Dismissed in good condition. NV: Denture Impression (Imm.Plan) Sanitation Worker Cleaning Equipment: Shivani Pan RD Dentist: Tr Lake DDS * Shivani Pan - 07/04/2024 9:00 AM EST Patient ID: Catherine Machado is a 78 y.o. female. Time Out: Timeout Date: 07/04/24, Timeout Time: 912 (Dental Prophy Adult) Location: [facility] Tooth: Maxilla and Mandible Procedure: Exam, X-rays, and Prophylaxis Verified the above with patient, insurance legal assistant, and provider. Confirmed via patient's chart, intraorally and by radiographs. Glue Spreading Machine Operator: not applicable Medical Hx: Vitals: Blood pressure [...] patient including brushing technique and flossing. Recommendations: Brunswick two times daily, modified ashton technique, Floss daily, Electric toothbrush, Brunswick Tongue, Anti-sensitivity toothpaste Recall Frequency: 6 mo NV: 6mrc Hygienist: Shivani Pan RDH documented in this encounter Plan of Treatment Upcoming Encounters Date Type Department Care Team (Late st Contact Info) Description 08/07/2024 10:30 AM EDT Office Visit [facility] ADULT DENTAL [address] [place] [phone] Tr Lake DDS [address] [place] [address] 08/09/2024 9:30 AM EDT Office Visit [facility] MEDICINE [address] [place] [address] Lois Salazar MD 230 [place] [address] 10/03/2024 2:00 PM EDT Medication Management [address] [address] Jono Pérez, PharmD [address] [place] [phone] Scheduled Orders Name Type Priority Associated Diagnoses [...] documented as of this encounter Care Teams Piece Cutter Relationship Specialty Start Date End Date Lois Salazar MD [address] [place] [address] PCP - General Family Medicine 05/27/23 Jono Pérez, CharlesD 230 [place] [address] Pharmacist Internal Medicine 07/04/23 documented as of this encounter
--- OUTSIDE RECORDS SUMMARY | 2024-07-17 12:52 | XMS_ITS | Encounter Summary ---
Author Organization [facility] Address [address] [facility] 7t [place] [address] Care Team Providers Care Dog Show Judge Name Role Phone Lois Salazar MD Primary Care Provider Jono Pérez PharmD Unavailable [phone] Encounter Details Date Type Department Care Team (Late Contact Info) Description 08/22/2023 Telephone [facility] MEDICINE [address] [place] [phone] Lois Salazar MD [address] [place] [address] [phone] Social History Tobacco Use Types Packs/Day Years [...] Upcoming Encounters Date Type Department Care Team ([facility] Contact Info) Description 08/07/2024 10:30 AM EDT Office Visit [facility] ADULT DENTAL [address] [place] [address] Tr Lake DDS [address] [place] [address] 08/09/2024 9:30 AM EDT Office Visit [facility] MEDICINE [address] [place] [address] Lois Salazar MD [address] [place] [address] 10/03/2024 2:00 PM EDT Medication Management [facility] MEDICINE [address] [place], [place] [phone] Jono Pérez, PharmBlane [address] [place] [address] documented as of this encounter Goals Goal Patient Goal Type Associated Problems Recent Progress Patient-Stated? Author Blood Pressure < 140/90 Blood Pressure 148/80( 025 9:17 AM EST) No Jono Pérez PharmD documented as of this encounter Visit Diagnoses Not on filedocumented in this encounter Care Teams Dog Show Judge Relationship Specialty Start Date End Date Lois Salazar MD [address] [place] [address] PCP - General Family Medicine 05/27/23 Jono Pérez, PharmD [address] [place] [phone] Pharmacist Internal Medicine 07/04/23 documented as of this encounter
--- OUTSIDE RECORDS SUMMARY | 2024-07-17 12:52 | XMS_ITS | Encounter Summary ---
Author Organization [employer] Address [address] [facility] 7t [place] [address] Care Team Providers Care Psychiatric Aide Name Role Phone Lois Salazar MD Primary Care Provider [phone] Jono Pérez PharmD Unavailable [phone] Encounter Details Date Type Department Care Team (Late st Contact Info) Description 03/20/2024 Orders Only [facility] MEDICINE [address] [place], [place] [phone] Lois Salazar MD [address] [place], [place] [phone] Anemia due to stage 3b chronic kidney [...] AM EDT Office Visit [facility] ADULT DENTAL [address] [place] [address] Tr Lake DDS [address] [place] [address] 08/09/2024 9:30 AM EDT Office Visit [facility] MEDICINE [address] [place] [address] Lois Salazar MD [address] [place] [address] 10/03/2024 2:00 PM EDT Medication Management [facility] MEDICINE [address] [place] [address] Jono Pérez PharmD [address] [place] [address] documented as of this encounter Goals Goal Patient Goal Type Associated Problems Recent Progress Patient-Stated? Author Blood Pressure < 140/90 Blood Pressure 148/80( 025 9:17 AM EST) No Jono Pérez, PharmBlane documented as of this encounter Procedures Procedure Name Priority Date/Time Associated Diagnosis Comments CBC WITH AUTO DIFFERENTIAL Routine 03/22/2024 11:11 AM EDT Anemia due to stage 3b chronic kidney disease (CMS/HCC) ([facility]) documented in this encounter Results * (ABNORMAL) CBC auto differential (03/22/2024 11:11 AM EDT) White Blood Count 7.8 4.8 - 10.8 X10*3/uL [facility] Red Blood Count 4.24 4.20 - 5.50 X10*6/uL [facility] Hemoglobin 11.7(L) 12.0 - 16.0 g/dl [facility] Hematocrit 35.3(L) 37.0 - 47.0 % [facility] Mean Corpuscular Volume 83.3 80.0 - 98.0 fL [facility] Mean Corpuscular Hemoglobin 27.6 27.0 - 33.0 pg [facility] Mean Corpuscular HGB Conc 33.1 31.0 - 35.0 g/dl [facility] Red Cell Distribution Width 13.1 11.0 - 16.0 % [facility] Platelet Count 262 160 - 400 X10*3/uL [facility] Mean Platelet Volume 11.4 9.4 - 12.3 fL [facility] Neutrophils Percent Auto 65.6 45 - 73 % [facility] Imm Gran Pct Auto 0.9(H) 0.0 - 0.4 % [facility] Lymphocytes Percent Auto 25.0 20 - 40 % [facility] Monocytes Percent Auto 5.9 2 - 11 % [facility] Eosinophils Percent Auto 2.1 0 - 4 % [facility] Basophils Percent Auto 0.5 0 - 2 % [facility] NRBC Pct Auto 0.0 0.0 - 0.2 /100WBC [facility] Neutrophils Absolute Auto 5.1 2.0 - 8.3 x10*3/uL [facility] Imm Gran Abs Auto 0.07(H) 0.00 - 0.03 X10*3/uL [facility] Lymphocytes Absolute Auto 1.9 1.2 - 4.9 X10*3/uL [facility] Monocytes Absolute Auto 0.5 0.1 - 1.2 X10*3/uL [facility] Eosinophils Absolute Auto 0.2 0.0 - 0.4 X10*3/uL [facility] Basophils Absolute Auto 0.0 0.0 - 0.2 X10*3/uL [facility] NRBC Abs Auto 0.000 0.0 - 0.012 X10*3/uL [facility] Blood Venous blood specimen / Unknown 03/22/2024 11:11 AM EDT 03/22/2024 1:17 PM EDT us Lois Salazar MD LAB BLOOD ORDERABLES Final Resul t [facility] [address] [place] [phone] [phone] documented in this encounter Visit Diagnoses Diagnosis Anemia due to stage 3b chronic kidney disease (CMS/HCC) (CMS/HCC)- Primary documented in this encounter Additional Health Concerns Assessment Noted Time PHQ-9 Depression Total Score: 2 09/20/19 24 9:42 AM EDT documented as of this encounter Care Teams Psychiatric Aide Relationship Specialty Start Date End Date Lois Salazar MD [address] [place] [address] PCP - General Family Medicine 05/27/23 Jono Pérez, CharlesD [address] [place] [address] Pharmacist Internal Medicine 07/04/23 documented as of this encounter
--- OUTSIDE RECORDS SUMMARY | 2024-07-17 12:52 | XMS_ITS | Encounter Summary ---
Author Organization [email or web address] [facility] Address [address] [place] [address] 7[address] [place] [address] Care Team Providers Care Cruise Guide Name Role Phone Lois Salazar MD Primary Care Provider Jono Pérez PharmD Unavailable [phone] Reason for Visit * Reason Comments Med Refill Encounter Details Date Type Department Care Team (Late st Contact Info) Description 07/04/2023 Refill [facility] MEDICINE [address] [place], [place] [phone] Lois Salazar MD [address] [place], [place] [phone] Social History Tobacco Use Types Packs/Day Years [...] [facility] ADULT DENTAL [address] [place], [place] [phone] Tr Lake DDS [address] [place], [place] [phone] 08/09/2024 9:30 AM EDT Office Visit [facility] MEDICINE [address] [place] [address] [phone] Lois Salazar MD [address] [place] [address] 10/03/2024 2:00 PM EDT Medication Management [facility] MEDICINE [address] [place] [address] [phone] Jono Pérez, Mitch [address] [place] [address] documented as of this encounter Goals Goal Patient Goal Type Associated Problems Recent Progress Patient-Stated? Author Blood Pressure < 140/90 Blood Pressure 148/80( 025 9:17 AM EST) No Jono Pérez PharmD documented as of this encounter Visit Diagnoses Not on filedocumented in this encounter Care Teams Cruise Guide Relationship Specialty Start Date End Date Lois Salazar MD [address] [place] [phone] PCP - General Family Medicine 05/27/23 Jono Pérez, PharmD [address] [place] [address] Pharmacist Internal Medicine 07/04/23 documented as of this encounter
--- OUTSIDE RECORDS SUMMARY | 2024-07-17 12:52 | XMS_ITS | Encounter Summary ---
Author Organization [employer] [facility] Address [address] [facility] 7[address] [place] [address] Care Team Providers Care Third Helper Name Role Phone Lois Salazar MD Primary Care Provider [phone] Jono Pérez PharmD Unavailable [phone] Encounter Details Date Type Department Care Team (Latest Contact Info) Description 02/10/2022 Abstract [facility] CONVERSIONS Dental, Provider, DDS Social [...] Description 08/07/2024 10:30 AM EDT Office Visit [facility] ADULT DENTAL [address] [place] [address] Tr Lake DDS [address] [place] [address] 08/09/2024 9:30 AM EDT Office Visit [facility] MEDICINE [address] [place] [phone] Lois Salazar MD [address] [place] [address] 10/03/2024 2:00 PM EDT Medication Management [facility] MEDICINE [address] [place] [phone] Jono Pérez, PharmD [address] [place] [address] documented as of this encounter Visit Diagnoses Not on filedocumented in this encounter Care Teams Third Helper Relationship Specialty Start Date End Date Lois Salazar MD [address] [place] [address] PCP - General Family Medicine 05/27/23 Jono Pérez, CharlesD [address] [place] [phone] Pharmacist Internal Medicine 07/04/23 documented as of this encounter
--- OUTSIDE RECORDS SUMMARY | 2024-07-17 12:52 | XMS_ITS | Encounter Summary ---
Author Organization [employer] [facility] Address [address] [place] [address] 7 [place] [address] Care Team Providers Care Sql Report Analyst Name Role Phone Lois Salazar MD Primary Care Provider Jono Pérez PharmD Unavailable [phone] Reason for Referral * Consultation (Routine) - Closed Specialty Diagnoses / Procedures Referred By Marta flores Referred To Contact Pharmacy Diagnoses Acute ischemic stroke (CMS/HCC) Xiomara Addison, PharmD [address] [place] [address] Phone: tel: fax: Referral ID Status Reason Start Date Expiration Date V isits Requested Visits Authorized [id number] Closed Continuity of Care 09/15/2023 09/14/2024 1 1 Encounter Details Date Type Department Care Team (Late st Contact Info) Description 09/15/2023 Orders Only [facility] MEDICINE [address] [place], [place] [phone] Xiomara Addison, PharmD [address] [place], [place] [phone] Acute ischemic stroke (CMS/HCC) (Primary Dx) Social [...] Description 08/07/2024 10:30 AM EDT Office Visit [facility] ADULT DENTAL [address] [facility] [place] [address] Tr Lake DDS [address] [facility] [place] [address] 08/09/2024 9:30 AM EDT Office Visit [facility] MEDICINE [address] [place] [address] Lois Salazar MD 230 [facility] [place] [address] 10/03/2024 2:00 PM EDT Medication Management [facility] MED[facility] [address] [facility] [place] [address] Jono Pé[place] [address] Scheduled Referrals Name Type Priority Associated Diagnoses Orde r Schedule Referral to Pharmacy MTM Outpatient Referral Routine Acute ischemic stroke ([facility]) Ordered: 09/15/2023 documented as of this encounter Goals Goal Patient Goal Type Associated Problems Recent Progress Patient-Stated? Author Blood Pressure < 140/90 Blood Pressure 148/80( 025 9:17 AM EST) No Jono Pérez, Mitch documented as of this encounter Visit Diagnoses Diagnosis Acute ischemic stroke (CMS/HCC)- Primary Unspecified cerebral artery occlusion with cerebral infarction documented in this encounter Care Teams Sql Report Analyst Relationship Specialty Start Date End Date Lois Salazar MD [facility] [place], [place] [phone] PCP - General Family Medicine 05/27/23 Jono Pérez, Mitch [facility] [place] [address] Pharmacist Internal Medicine 07/04/23 documented as of this encounter
--- OUTSIDE RECORDS SUMMARY | 2024-07-17 12:52 | XMS_ITS | Clinical Summary ---
Author Organization [employer] Address [address] [facility] 7t [place] [address] Care Team Providers Care Rehabilitation Engineer Name Role Phone Lois Ennis MD Primary Care Provider [phone] Jono Pérez PharmD Unavailable [phone] Allergies Active Allergy Reactions Criticality Noted Date [...] complication, with long-term current use of insulin ([facility]) Chew 4 tablets by mouth as needed for hypoglycemia. 40 tablet 11 Active glucagon (Baqsimi) 3 MG/DOSE nasal powderIndicatio ns:Type 2 diabetes mellitus with other specified complication, with long-term current use of insulin ([facility]) Instill 3 mg (1 actuation) into 1 nostril as needed for severe hypoglycemia. May repeat dose if there has been no response after 15 minutes. 2 each 1 Active atorvastatin (Lipitor) 80 MG tablet Take 80 mg by mouth at bedtime. Active FreeStyle Precision En Test test stripIndication s:Type 2 diabetes mellitus with hyperglycemia, with long-term current use of insulin ([facility]) Check your sugar 5 times per day [...] AND IN THE EVENING 60 tablet 025 2024 Discontinued Active Problems Problem Noted Date Diagnosed Date Excessive attrition of teeth, limited to enamel 07/04/2024 Arthralgia of left temporomandibular joint 12/17 Gastroparesis 10/10/2023 Assessment & Plan (03/15/2024 4:04 PM EDT): - following with [facility] GI, last seen in July 2023 - Rx metoclopramide 5 mg tid - Use the minimum effective dose due to her neuropsychiatric condition. Assessment & Plan (12/18/2023 12:56 PM EDT): - following with [facility], last seen [...] AM EDT): - 08/11/23 acute ischemic stroke. [facility] hospitalization. Seen by neurologist. Increased atorvastatin to 80 mg at bedtime. Already on apixaban for A-fib. Recommended to continue. - MRI on 08/12/23 showed a 1.9 cm acute infarct involving the right thalamus and posterior limb of the right internal capsule, right HUMAN PROJECTILE territory. - s/p rehab 08/15/23 to 09/01/23. [...] PM EDT): - 08/11/23 acute ischemic stroke. [facility] hospitalization. Seen by neurologist. Increased atorvastatin to 80 mg at bedtime. Already on apixaban for A-fib. Recommended to continue. - MRI on 08/12/23 showed a 1.9 cm acute infarct involving the right thalamus and posterior limb of the right internal capsule, right HUMAN PROJECTILE territory. - s/p rehab 08/15/23 to 09/01/23. [...] PM EDT): - following with Dr. Barclay [facility] nephrology, last seen in December 2023 - continue current medications - avoid nephrotoxic drugs - continue SGLT2 inhibitor - optimize HTN and diabetes mellitus management Assessment & Plan (12/20/2023 4:04 PM EDT): - following with Dr. Barclay [facility] nephrology, last seen in October 2023 - continue current medications - avoid nephrotoxic drugs - optimize HTN and diabetes mellitus management Assessment & Plan (09/20/2023 10:37 AM EDT): - following with Dr. Barclay [facility] nephrology - continue current medications - avoid nephrotoxic drugs - optimize HTN and diabetes mellitus management Assessment & Plan (05/27/2023 12:51 PM EST): - following with Dr. Barclay [facility] nephrology - continue current medications - avoid nephrotoxic drugs - optimize HTN and diabetes mellitus management Paroxysmal atrial fibrillation 05/27/2023 Assessment & Plan (03/15/2024 10:22 AM EDT): - following [facility] Cardiology, last seen in Mar 2023, annual follow up - [id number] - continue apixaban - currently rate control with metoprolol - Dr. Fonseca is entertaining rhythm control if pt has recurrence of symptomatic atrial fibrillation Assessment & Plan (12/18/2023 1:03 PM EDT): - following [facility] Cardiology, last seen in Mar 2023, annual follow up - [id number] - continue apixaban - currently rate control with metoprolol - Dr. Fonseca is entertaining rhythm control if pt has recurrence of symptomatic atrial fibrillation Assessment & Plan (09/23/2023 6:34 AM EDT): - following [facility] Cardiology - [id number] 5 - continue apixaban - currently rate control with metoprolol - Dr. Fonseca is entertaining rhythm control if pt has recurrence of symptomatic atrial fibrillation Assessment & Plan (05/27/2023 12:56 PM EST): - following [facility] ED - [id number] 5 - continue apixaban - currently rate [...] no record of evaluation - following with [facility] for BHS - reconcile medications; consider [...] (03/15/2024 4:42 PM EDT): - following with [facility] GI - last colonoscopy in 2017 - Continue famotidine at renal dose, 20 mg at bedtime - Consider PPI if genetic engineer approves - Avoid irritants Spoke with Dr. Bronson Barclay, patient's genetic engineer. Since patient's renal function has been stable, use of PPI was approved. Contacted patient's daughter, and informed that we will try omeprazole 20 mg daily. Assessment & Plan (12/18/2023 12:57 PM EDT): - following with [facility] GI - last colonoscopy in 2017 - Decrease famotidine to renal dose, 20 mg at bedtime. - Avoid irritants Assessment & Plan (05/27/2023 12:47 PM EST): - following with [facility] GI - last [...] s/p hysterectomy / BSO in 2017 - [place] Soaping Machine Operator: Dr. Garcia, [facility]. Last seen in 2016 - Client Renewal Specialist Onc: Dr. Aquino at [facility] Assessment & Plan (12/18/2023 12:55 PM EDT): - s/p hysterectomy / BSO - following with [facility] Client Renewal Specialist onc? - will request records Assessment & Plan (05/27/2023 1:08 PM EST): - s/p hysterectomy / BSO - following with [facility] Client Renewal Specialist onc? - will request records Malignant neoplasm of breast 05/26/202308/2023 Assessment & Plan (03/15/2024 5:17 PM EDT): - s/p left partial mastectomy 2017. Invasive ductal carcinoma. - most recent mammography 06/14/23 screening, showing left asymmetry. Additional imaging on 10/06/23 which showed benign finding. BI-RADS 2. - still on tamoxifen - previously following with [facility] oncology, last seen in 2018 - will check whether patient needs to be on tamoxifen and refer patient back to [facility] Onc Assessment & Plan (12/18/2023 12:46 PM EDT): - s/p lumpectomy in 2017 - most recent mammography 06/14/23 screening, showing left asymmetry. Additional imaging on 10/06/23 which showed benign finding. BI-RADS 2. - continue tamoxifen - previously following with [facility] breast cancer clinic Assessment & Plan (09/22/2023 8:39 AM EDT): - s/p lumpectomy in 2017 - continue tamoxifen - previously following with [facility] breast cancer clinic - reminded about need for follow up mammo. 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 Type 2 diabetes mellitus 12/29/2020 Assessment & Plan (03/15/2024 12:39 PM EDT): - Dx > 20 years - Hgb A1C 8.8% on 03/15/24 - Following with [facility] Endo, last seen [...] A1C 8.9% on 12/16/23 - Following with [facility] Endo, last seen [...] A1C 9.8% on 09/20/23 - Following with [facility] Endo - Continue [...] - Hgb A1C 9.2% - Following with [facility] Endo - Continue [...] goal < 130/84 -Co-managed with our pharmacist, hod carrier, and genetic engineer -BP borderline today -Continue working on lifestyle [...] goal < 130/84 -Co-managed with our pharmacist, hod carrier, and genetic engineer -BP almost at goal -Continue working on [...] (12/18/2023 12:48 PM EDT): - following with [facility] - needs to reconcile medications Assessment & Plan (05/27/2023 1:11 PM EST): - following with [facility] - needs to reconcile medications Hyperlipidemia [...] Encounters Date Type Department Care Team Description 07/13/2024 Refill [facility] [address] [place] [address] Lois Ennis MD 07/05/2024 Orders Only [facility] External Provider, [facility] 07/04/2024 9:00 AM EST Office Visit [facility] [address] [place] [address] Shivani Pan Excessive attrition of teeth, limited to enamel (Primary Dx); Dental calculus; Dental plaque 07/04/2024 Refill [facility] [address] [place] [address] Lois Ennis MD Essential hypertension 06/06/2024 Refill [facility] [address] [place] [address] Nai Randall MD 05/31/2024 Orders Only GENERIC EXTERNAL DATA DEPARTMENT Provider, Generic External Data 05/11/2024 Refill [facility] [address] [place] [address] Nai Randall MD 05/03/2024 Refill [facility] [address] [place] [address] Nai Randall MD 04/16/2024 Refill [facility] [address] [place] [address] Nanette Travis, RASHEED 04/16/2024 Refill [facility] [address] [place] [address] Lois Ennis MD from Last 3 Months [...] 08/07/2024 10:30 AM EDT Office Visit [facility] [address] [place] [address] [place] [facility] [address] [place] [address] 08/09/2024 9:30 AM EDT Office Visit [facility] [address] [place] [phone] Lois Ennis MD [address] [place] [address] 10/03/2024 2:00 PM EDT Medication Management [facility] [address] [place] [phone] Jono Pérez, PharmD [address] [facility] [place] [address] Health Maintenance Due Date Last Done Comments Alcohol/Substance Use Screening 1957 Hepatitis C Screening 11[birth year]30/1963 Diabetes: Foot Exam 05/26/2024 05/26/2023, 05/26/2023, 05/26/2023, Additional history exists Diabetes: Hemoglobin A1C 06/15/2024 024, 09/20/2023, 05/26/2023 Depression Screening 09/19/2024 09/20/2023, 09/20/19 SDOH Screening 09/19/2024 09/20/2023 Dental Oral Exam 01/02/2025 07/04/2024 Dental Prophylaxis 01/02/2025 07/04/2024 Diabetes: Urine Protein Screening 03/22/2025 03/22/2024, 05/27/2023 Lipid Panel 03/22/2025 03/22/2024, 05/27/2023 Tobacco Screening 07/04/2025 07/04/2024 Dental X-Ray: Bitewings 07/05/2025 07/04/2024 Mammogram 07/05/2025 07/05/2024, 09/20, 06/14/2023 Eye Exam 10/06/2025 10/07/2023 DTaP/Tdap/Td Vaccines (2 [...] 9:17 AM EST) No Jono Pérez PharmD Procedures Procedure Name Priority Date/Time Associated Diagnosis Comments BD DEXA AXIAL Routine 07/05/2024 11:00 AM EST BI MAMMOGRAM SCREENING TOMOSYNTHESIS BILATERAL Routine 07/05/2024 10:50 AM EST INTRAORAL - COMPLETE SERIES OF RADIOGRAPHIC IMAGES [...] with long-term current use of insulin (CMS/HCC) LIPID PANEL WITH REFLEX TO DIRECT LDL Routine 03/22/2024 11:11 AM EDT Type 2 diabetes mellitus with hyperglycemia, with long-term current use of insulin (CMS/HCC) POCT GLYCATED HEMOGLOBIN, TOTAL Routine 03/15/2024 10:17 AM EDT Type 2 diabetes mellitus with hyperglycemia, with long-term current use of insulin ([facility]) DIABETES EYE EXAM Routine 10/07/2023 from Last 3 Months or Most Recently Relevant to Health Maintenance Results * BD DEXA Axial (07/05/2024 11:00 AM EST) Anatomical Region Laterality Modality Body Radiographic Jessica ging 07/05/2024 11:0 0 AM EST Narrative 07/05/2024 11:48 AM EST ? [facility] ? [address] ?[place] [address] ? Mammography Report ? Signed ? Patient: Alo Machadoicita ?MR#: [id number] ?? 95 ? : 1945 ?Acct:[id number] ? Age/Sex: 78 / F ?ADM Date: 07/05/24 ? Loc: HO.MAMMO ? Attending Dr: Kalpana Iqbal MD ? Ordering Physician: Kalpana Iqbal MD ?Results: ? Date of Service: 07/05/24 ?Follow Up: ? Procedure(s): XR DEXA axial skeleton ?? Accession Number(s): [id number] ? cc: Kalpana Iqbal MD; Lois Ennis MD ? EXAMINATION: ??DXA BONE DENSITY AXIAL ? HISTORY: ??Estrogen deficiency ? TECHNIQUE: KeVita Dual energy absorptiometry (DEXA) ?? of the [...] is a trademark of the [employer]'s ?? [place] [facility] [employer], a World Health Organization (WHO) ?? Collaborating Center. ? Electronically signed by: ??David Garcia MD ??07/05/2024 11:45 AM EST ?? RP ? Dictated By: ?David Garcia MD ? Signed By: ?<Electronically signed by David Garcia MD in OV> ?07/05/24 1145 ? DD/ 1100 ? TD/TT: 07/05/24 1130 ? Cardiology Tech: ? Procedure Note Donotuseinterpreter, Image - 07/05/2024 [facility] [address] [place], [place] [address] Mammography Report Signed Patient: Kati Machado#: [id number] 95 : 6Acct:[id number] Age/Sex: 78 / FADM Date: 07/05/24 Loc: MAMMO Attending Dr: Kalpana Iqbal MD Ordering Physician: Kalpana Iqbalults: Date of Service: 07/05/24Follow Up: Procedure(s): XR DEXA axial skeleton Accession Number(s): [id number] cc: Kalpana Iqbal MD; Lois Ennis MD EXAMINATION: DXA BONE DENSITY AXIAL HISTORY: Estrogen deficiency TECHNIQUE: KeVita Dual energy absorptiometry (DEXA) of the lumbar [...] is a trademark of the [employer]'s [place] [facility], a World Health Organization (WHO) Collaborating Center. Electronically signed by: David Garcia MD 07/05/2024 11:45 AM EST Dictated By: David Garcia MD Signed By: <Electronically signed by David Garcia MD in OV> 07/05/24 1145 DD/ 1100 TD/TT: 07/05/24 1130 Cardiology Tech: [facility] External Provider IMG DXA PROCEDURES Edited Result - Final * BI Mammogram Screening Tomosynthesis Bilateral (07/05/2024 10:50 AM EST) Anatomical Region Laterality Modality Breast Bilateral Mammography 07/05/2024 10:5 0 AM EST Narrative 07/14/2024 11:51 AM EST ? [facility] ? [address] ?[place] [address] ? Mammography Report ? Signed ? Patient: Carter,Catherine ?MR#: [id number] ?? 95 ? : 1945 ?Acct:[id number] ? Age/Sex: 78 / F ?ADM Date: 02/13/25 ? Loc: HO.MAMMO ? Attending Dr: Kalpana Iqbal MD ? Ordering Physician: Kalpana Iqbal MD ?Results: 2Benig ?? n Findings ? Date of Service: 07/05/24 ?Follow Up: 1 Year From Orig ?? inal Mammogram ? Procedure(s): MM tomosynthesis screening BI ?? Accession Number(s): [id number] ? cc: Kalpana Iqbal MD; Lois Ennis MD ? EXAMINATION: ?? MM SCREENING DIGITAL [...] ??Melinda Rodarte DO ??07/14/2024 11:49 AM EST ?? RP ? Dictated By: ?Melinda Rodarte DO ? Signed By: ?<Electronically signed by Melinda Rodarte, DO in OV> ? 07/14/24 1149 ? DD/ 1050 ? TD/TT: 07/05/24 1113 ? Cardiology Tech: ? Procedure Note Donotuseinterpreter, Image - 07/14/2024 [facility] [address] [place] [address] Mammography Report Signed Patient: Kati Machado#: [id number] 95 : 6Acct:[id number] Age/Sex: 78 / FADM Date: 07/05/24 Loc: HO.MAMMO Attending Dr: Kalpana Iqbal MD Ordering Physician: Kalpana Iqbalesults: 2Benig n Findings Date of Service: 07/05/24Follow Up: 1 Year From Orig inal Mammogram Procedure(s): MM tomosynthesis screening BI Accession Number(s): [id number] cc: Kalpana Iqbal MD; Lois Ennis MD EXAMINATION: MM SCREENING DIGITAL BREAST TOMOSYNTHESIS, [...] by: Melinda Rodarte DO 07/14/2024 11:49 AM EST Dictated By: Melinda Rodarte DO Signed By: <Electronically signed by Melinda Rodarte DO in OV> 07/14/24 1149 DD/ 1050 TD/TT: 07/05/24 1113 Cardiology Tech: [facility] External Provider IMG BI PROCEDURES Edited Result - Final * (ABNORMAL) Glucose, Whole Blood (05/31/2024 10:45 AM EST) Glucose, Whole Blood 204(H) 60 - 115 mg/dL [facility] Comment:METER #: [id number] 5Testing performed in the Endocrinology Department [address] , [address], [facility] [place]. 05/31/2024 10:4 5 AM EST 05/31/2024 10:51 AM EST Generic External Data Provider LAB BLOOD ORDERAB LES Final Result Performing Organization Address [facility]/ZIP Co de Phone Number [facility] [address] [place] [phone] * (ABNORMAL) Albumin, Random Urine W/Creatinine (03/22/2024 11:20 AM EDT) Creatinine, Urine 97.69 mg/dL [facility] Microalbumin Urine 420.0 mg/L [facility] Microalbum Creatinine Ratio Ur 429.9(H) <30 ug/mg cr [facility] Comment:Albumin/Creatinine R atio Reference Ranges: Normal: < 30 ug/mg creatinine Microalbuminuria: 30 - 300 ug/mg creatinineClinical Albuminuria: > 300 ug/mg creatinine Urine 03/22/2024 11:2 0 AM EDT 03/22/2024 1:18 PM EDT Lois Ennis MD LAB URINE ORDERABLES Final Resul t Performing Organization Address City/[facility]/ZIP Co de Phone Number [facility] [address] [place] [phone] * (ABNORMAL) Lipid Panel with Reflex to Direct LDL (03/22/2024 11:11 AM EDT) Triglycerides 199(H) <150 mg/dL [facility] Comment:Desirable Triglyceri de: less than 150 mg/dLBorderline High Triglyceride 150-199 mg/dLHigh Triglyceride: 200-499 mg/dLVery High Triglyceride: greater than or equal to 5OO mg/dL Cholesterol 138 <200 mg/dL [facility] Comment:Desirable Cholestero l: less than 200 mg/dLBorderline High Cholesterol: 200-239 mg/dLHigh Cholesterol: greater than 239 mg/dL LDL Cholesterol Calculated 73 <100 mg/dL [facility] Comment:Desirable LDL: less than 100 mg/dLNear Optimal/Above Optimal LDL: 110- 129 mg/dLBorderline High LDL: 130-159 mg/dLHigh LDL: 160-189 mg/dLVery High LDL: greater than or equal to 190 mg/dL HDL Cholesterol 26(L) >40 mg/dL [facility] Comment:Desirable HDL: great er than 40 mg/dL Note: This HDL assay may give artificially low results in patients with liver disease. Blood 03/22/2024 11:1 1 AM EDT 03/22/2024 1:17 PM EDT us Lois Ennis MD LAB BLOOD ORDERABLES Final Resul t [facility] [address] [place] [phone] * (ABNORMAL) POCT HGB A1C (03/15/2024 10:17 AM EDT) Hemoglobin A1C 8.8(A) 4.0 - 6.0 % QC Media Lot # [id number] Lot# Expiration Date [id number] Blood 03/15/2024 10:1 7 AM EDT us Lois Ennis MD POINT OF CARE TEST ENTER/EDIT OR DERABLES Final Result * Hm Diabetes Eye Exam (10/07/2023) Eye Exam Normal Normal Historical Provider HEALTH MAINTENANCE Final Result from Last 3 Months or Most Recently Relevant to Health Maintenance [facility] - DQ [facility] SNP Advance Directives Documents on File Type Date Recorded Patient Apprentice Pattern Maker Expl anation Advance Directives and Livin g Will 12/18/2023 12:04 PM Care Teams Rehabilitation Engineer Relationship Specialty Start Date End Date Lois Ennis MD [address] [place] [phone] PCP - General Family Medicine 05/27/23 Jono Pérez, CharlesD [address] [place] [address] Pharmacist Internal Medicine 07/04/23
--- OUTSIDE RECORDS SUMMARY | 2024-07-17 12:52 | XMS_ITS | Encounter Summary ---
Author Organization [employer] [facility] Address [address] [facility] [address] [place] [address] Care Team Providers Care Network Program Manager Name Role Phone Lios Salazar MD Primary Care Provider [phone] Jono Pérez PharmD Unavailable [phone] Encounter Details Date Type Department Care Team (Latest Contact Info) Description 03/21/2019 Abstract [facility] CONVERSIONS Dental, Provider, DDS Social History Tobacco [...] 08/07/2024 10:30 AM EDT Office Visit [facility] [address] [place] [address] [place] [facility] [address] [place] [address] 08/09/2024 9:30 AM EDT Office Visit [facility] [address] [place] [phone] Lois Slaazar MD [address] [place] [address] 10/03/2024 2:00 PM EDT Medication Management [facility] [address] [place] [phone] Jono Pérez, PharmD [address] [place] [address] documented as of this encounter Visit Diagnoses Not on filedocumented in this encounter Care Teams Network Program Manager Relationship Specialty Start Date End Date Lois Salazar MD [address] [place] [address] PCP - General Family Medicine 05/27/23 Jono Pérez, CharlesD [address] [place] [phone] Pharmacist Internal Medicine 07/04/23 documented as of this encounter
--- OUTSIDE RECORDS SUMMARY | 2024-07-17 12:52 | XMS_ITS | Encounter Summary ---
Author Organization [employer] [facility] Address [address] [facility] 7t [place] [address] Care Team Providers Care Roundhouse Worker Name Role Phone Lois Salazar MD Primary Care Provider [phone] Jono Pérez PharmD Unavailable [phone] Reason for Visit * Reason Onset Date Comments medication 07/29/2022 Encounter Details Date Type Department Care Team (Late st Contact Info) Description 07/29/2022 Telephone [facility] [address] [place] [address] Constantine Richardson, ERI [address] [place] [address] medication Social History Tobacco Use Types Packs/Day [...] morning Kimmie, spoke with patient and daughter(career development associate). Requested them to plese stop the antibiotic. [...] Description 08/07/2024 10:30 AM EDT Office Visit [facility] [address] [place] [address] [place] [facility] [address] [place] [address] 08/09/2024 9:30 AM EDT Office Visit [facility] [address] [place] [phone] Lois Salazar MD [address] [place] [address] 10/03/2024 2:00 PM EDT Medication Management [facility] [address] [place] [address] Jono Pérez, Mitch [address] [place] [address] documented as of this encounter Visit Diagnoses Not on filedocumented in this encounter Care Teams Roundhouse Worker Relationship Specialty Start Date End Date Lois Salazar MD [address] [place] [phone] PCP - General Family Medicine 05/27/23 Jono Pérez, PharmD [address] [place] [address] Pharmacist Internal Medicine 07/04/23 documented as of this encounter
== END 2024-07-17 11:11 | disposition home or self-care (01) ==
PROVIDERS: PCP Family Medicine; Visit Provider Internal Medicine Hypertension Specialist
DX: I10 Essential (primary) hypertension (principal); N18.30 Chronic kidney disease, stage 3 unspecified
CPT/HCPCS: 99214

== ENCOUNTER → 2024-07-17 10:43 | Outpatient (BNVA) | payer OTHER, SELFPAY | PROVIDERS: PCP Family Medicine; Visit Provider Internal Medicine Hypertension Specialist | DX: I12.9 Hypertensive chronic kidney disease with stage 1 through stage 4 chronic kidney disease, or unspecified chronic kidney disease (principal); N18.30 Chronic kidney disease, stage 3 unspecified | CPT/HCPCS: 99212 ==

== ENCOUNTER 2024-08-08 13:05 | Inpatient (IN) | payer OTHER, SELFPAY ==
[2024-08-08] VITALS (7 sets, daily range): BP systolic 129–150; BP diastolic 55–81; PULSE 56–62; RESP 15–20; TEMP 36.4–36.6; O2SAT 96–99; BMI 35.2
--- NOTE | 2024-08-08 | ECG_ITS ---
Test Reason : WEAKNESS Blood Pressure : */* mmHG Vent. Rate : 60 BPM Atrial Rate : 60 BPM P-R Int : 164 ms QRS Dur : 92 ms QT Int : 424 ms P-R-T Axes : 41 -11 29 degrees QTcB Int : 424 ms Normal sinus rhythm Inferior infarct , age undetermined Possible Anterior infarct (cited on or before 12-Nov-2023) Abnormal ECG When compared with ECG of 12-Nov-2023 15:26, Inferior infarct is now Present Referred By: Arlet Jordan Electronically Signed By: Alonso Goins
--- NOTE | ~2024-08-08 | XR_ITS ---
EXAMINATION: XR CHEST CLINICAL INFORMATION: ams COMPARISON: January 12, 2024. TECHNIQUE: Frontal view of the chest was obtained. FINDINGS: Mild prominence of the interstitial lung markings. No consolidation pleural effusion or pneumothorax. Cardiomediastinal silhouette appears mildly prominent, unchanged. Calcified plaque thoracic aorta. Multilevel thoracic spondylosis. Degenerative changes in the shoulders. XR/XR chest 1V IMPRESSION: No gross acute airspace disease. Stable. Electronically signed by: Kurtis Velazquez MD 08/08/2024 02:41 PM EDT
--- NOTE | ~2024-08-08 | CT_ITS ---
EXAMINATION: CT ABDOMEN PELVIS WITHOUT IV CONTRAST HISTORY: RLQ abd pain COMPARISON: Comparison is made with the prior examination dated 01/12/2024. TECHNIQUE: CT scan of the abdomen and pelvis was performed without contrast using standard departmental protocol. Coronal and sagittal reformatted images were generated and reviewed. Oral contrast material was not administered at the request of the referring physician. This CT exam was performed with one or more of the following dose reduction techniques: automated exposure control, adjustment of the mA and/or kV according to patient size, use of iterative reconstruction technique. DLP: 1647 mGy-cm FINDINGS: LOWER CHEST: The visualized lung bases are clear. There is no pleural effusion. CARDIOVASCULATURE: The heart is normal in size. There is no pericardial effusion. LIVER: The liver is normal in size and contour. The liver has an unremarkable unenhanced appearance. GALLBLADDER / BILE DUCTS: The gallbladder is unremarkable. There is no intra or extrahepatic biliary ductal dilatation. SPLEEN: The spleen is normal in size and has an unremarkable unenhanced appearance. PANCREAS: The pancreas has an unremarkable unenhanced appearance. ADRENAL GLANDS: The right adrenal gland is unremarkable. There is a 9 mm left adrenal nodule without change. KIDNEYS/RETROPERITONEUM: No renal calculi are identified. There is no hydronephrosis. LYMPH NODES: No retroperitoneal lymphadenopathy is identified in the abdomen or pelvis. VASCULATURE: The abdominal aorta demonstrates atherosclerotic calcification, but is normal in caliber. MESENTERY/PERITONEUM: No free fluid. No masses. There is no free intraperitoneal gas. STOMACH: There is a small hiatal hernia. SMALL BOWEL: The small bowel is normal in caliber. COLON: There is diverticulosis of the sigmoid colon, without evidence of diverticulitis. APPENDIX: Normal. URINARY BLADDER/PELVIC ORGANS: The urinary bladder is unremarkable. The patient is status post hysterectomy. BONES / SOFT TISSUES: The bones are osteopenic. CT/CT abdomen pelvis wo IV con IMPRESSION: Small hiatal hernia. Sigmoid diverticulosis without evidence of diverticulitis. Electronically signed by: David Garcia MD 08/08/2024 03:31 PM EDT
--- NOTE | ~2024-08-08 | CT_ITS ---
EXAMINATION: CT HEAD WITHOUT CONTRAST CLINICAL INFORMATION: [facility] COMPARISON: November 12, 2023. TECHNIQUE: Contiguous axial imaging was performed from the skull base to vertex without intravenous administration of contrast. This CT examination was performed using dose optimization techniques as appropriate, variously including the following: *Automated exposure control *Adjustment of mA and/or kV according to patient size (this includes techniques or standardized protocols for targeted exams where dose is matched to indication/reason for exam; i.e. extremities or head) *Use of iterative reconstruction technique DLP: 795.72 mGy-cm FINDINGS: No acute intracranial hemorrhage, mass effect, midline shift, hydrocephalus or herniation. Bilateral multifocal patchy and confluent deep periventricular white matter hypodensities involving centrum semiovale and ordaz radiata. Multifocal old lacunar infarcts, basal ganglia and extracapsular. Prominence extra-axial CSF hemicranial convexities measuring less than 6 mm. Adams-white matter differentiation is normal. Posterior cranial fossa contents demonstrated no acute intracranial hemorrhage or mass effect. Plaques in the cavernous supracavernous segments both ICAs and V4 segments of the vertebral arteries. Mucosal thickening, maxillary sinuses and ethmoid cells. Tympanic cavities and mastoid cells are aerated. No hematomas or fluid collections in the intraconal or extraconal compartments of the orbits. Sellar/suprasellar region demonstrated no gross masses. CT/CT head/brain wo IV con IMPRESSION: Extensive white matter disease likely related to small vessel occlusive disease. Prominence of the extra-axial CSF spaces along the hemicranial convexities suggesting volume loss and less likely chronic subdural hematomas versus hygromas. No acute intracranial hemorrhage. Electronically signed by: Kurtis Velazquez MD 08/08/2024 03:35 PM EDT
--- NOTE | 2024-08-08 14:03 | ED_ITS ---
HPI - Altered Mental Status General Chief Complaint: Altered Mental Status Stated Complaint: confused/lethargic since last night Time Seen by Provider: 08/08/24 13:34 Source: patient, EMS, RN notes reviewed and old records reviewed Mode of arrival: EMS History of Present Illness ED Provider: Arlet Jordan PA-C HPI narrative: 78-year-old female with a past medical history of CKD, CVA, proximal AFib on Eliquis, endometrial CA, depression, iron-deficiency anemia, hypothyroid, schizophrenia, HTN, HLD, diabetes, unspecified dementia, presenting to the ED via EMS for increased lethargy/generalized weakness, unresponsiveness and confusion since yesterday per daughter w/ appreciable facial droop. Patient reports lower abdominal pain, nausea, vomiting. 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 Denies fever, CP/SOB. Patient is poor historian MD complaint: altered mental status Related Data Home Medications ?Medication ?Instructions ?Recorded ?Confirmed pen needle, diabetic 32 gauge x #50 ea 04/09/20 07/17/24 amlodipine 10 mg tablet 10 mg PO QAM 11/12/23 07/17/24 memantine 5 mg tablet 5 mg PO BID 11/12/23 07/17/24 famotidine 20 mg tablet 20 mg PO DAILY 12/30/23 07/17/24 valsartan 320 mg tablet 320 mg PO .every evening 07/17/24 07/17/24 Previous Rx's ?Medication ?Instructions ?Recorded compr.stocking,knee,long,large #12 ea 10/16/20 diabetic shoes with 3 inserts #3 ea 12/31/20 blood-glucose meter (FreeStyle #1 ea 12/11/21 Precision En Meter) lancets 33 gauge (TRUEplus Lancets) ##100 11/22/22 flash glucose scanning reader #1 ea 12/06/22 (FreeStyle Carola [employer]) cane #1 ea 12/15/22 cholecalciferol (vitamin D3) 25 25 mcg PO DAILY #30 caps 03/25/23 mcg (1,000 unit) capsule (Vitamin D3) magnesium oxide 250 mg PO BID #180 tabs 04/03/23 simethicone 180 mg capsule 180 mg PO TID #90 caps 07/14/23 metoprolol succinate 100 mg 100 mg PO QAM #90 tabs 09/02/23 tablet,extended release 24 hr atorvastatin 80 mg tablet 80 mg PO BEDTIME #30 tabs 09/25/23 insulin lispro 100 unit/mL 35 unit (0.35 mL) subcut TID 30 10/13/23 subcutaneous pen (Humalog #31.5 mL (U-100) Insulin) blood sugar diagnostic (FreeStyle #100 strips 10/18/23 Precision En Strips) insulin degludec 200 unit/mL (3 65 unit (0.325 mL) subcut DAILY 12/16/23 mL) subcutaneous pen (Tresiba #12 mL FlexTouch U-200 insulin) metoclopramide HCl 5 mg tablet 5 mg PO TID #90 tabs 02/07/24 empagliflozin 10 mg tablet 10 mg PO DAILY 30 days #30 tabs 02/29/24 (Jardiance) linaclotide 72 mcg capsule 72 mcg PO QAM #30 caps 03/06/24 (Linzess) pen needle, diabetic 32 gauge x #200 ea 03/13/24 (UltiCare Pen Needle) flash glucose sensor (FreeStyle #2 kits 04/06/24 Carola 2 Sensor kit) lancets 33 gauge (TRUEplus Lancets) #100 ea 06/12/24 apixaban 5 mg tablet (Eliquis) 5 mg PO BID #180 tabs 06/13/24 ferrous sulfate 325 mg (65 mg 325 mg PO DAILY 90 days #90 tabs 07/04/24 iron) tablet tamoxifen 20 mg tablet 20 mg PO BEDTIME 30 days #30 tabs 08/04/24 Allergies Allergy/AdvReac Type Severity Reaction Status Date / Time JERMAINE Inhibitors AdvReac Intermediate COUGH Verified 08/08/24 13:43 [JERMAINE INHIBITORS] lactose [LACTOSE] AdvReac Intermediate GI Verified 08/08/24 13:43 DISCOMFORT Review of Systems 2 Review of Systems: Yes all other systems are reviewed and are negative Constitutional: Constitutional: Reports as per [facility] Past Medical History Attestation statement: The following information was validated with the patient. Source: old records reviewed Medical History CKD (chronic kidney disease) stage 3, GFR 30-59 ml/min Acute stroke due to ischemia Abdominal bloating Elevated TSH Preoperative clearance Bilateral leg pain Urticaria Obesity (BMI 30-39.9) Diabetic nephropathy associated with type 2 diabetes mellitus Nausea and vomiting Microalbuminuria due to type 2 diabetes mellitus Paroxysmal atrial fibrillation Slurred speech History of endometrial cancer Depression Iron deficiency anemia History of left breast cancer Hypothyroidism Schizophrenia half-way (current) use of insulin Hypertension Dyslipidemia Diabetic polyneuropathy associated with type 2 diabetes mellitus Diabetes type 2, uncontrolled Surgical History History of tooth extraction Hx of eye surgery Hx of breast surgery Hx of total hysterectomy Family History Family History Father No problems noted. 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 Tobacco Use Status: Never used Tobacco Smoked in Last 30 Days: No e-Cigarette/Vaping Use: Never Used Second Hand Smoke Exposure: No Use of substances other than those prescribed or required for medical reasons: No Advance Directives: Yes Advance Directives on File: Yes Advance Directives Date on File: 08/16/23 Do you have a plan to hurt others: No Plan service: No Current occupational status: disabled Cognitive needs: Yes Hearing needs: No Vision needs: Yes Physical Exam ED Vital Signs: Vital Signs - 24 hr 08/08/24 13:34 08/08/24 13:39 08/08/24 15:48 Temperature 97.6 F 97.6 F Pulse Rate 58 59 59 Respiratory Rate 20 20 16 Blood Pressure 145/60 H 145/60 H 142/62 H Pulse Oximetry 99 97 97 Oxygen Delivery Method Room Air Room Air Room Air 08/08/24 16:50 Temperature 97.7 F Pulse Rate 58 Respiratory Rate 18 Blood Pressure 143/65 H Pulse Oximetry 96 Oxygen Delivery Method Room Air BMI result Body Mass Index 35.2 Const General: no acute distress and lethargic Orientation/consciousness: oriented to person, oriented to place and lethargic HENMT Head: Yes normal to inspection and Yes atraumatic Ears: hearing grossly normal bilaterally General nose exam: Normal external nose present Face and sinus: Yes normal facial exam Eyes General: appearance normal, both eyes and all related structures EOM: EOMs intact bilaterally Neck Neck: Yes normal visual inspection and Yes no meningeal signs Resp Effort & Inspection: normal respiratory effort and no respiratory distress Auscultation: diminished lung sounds bilateral in the lower lung jamison Cardio Rate: regular rate Heart sounds: S1 normal heart sound present and S2 normal heart sound present GI Inspection: Yes normal to inspection Palpation (GI): Soft to palpation, Tenderness to palpation present (GI) (Lower abdomen) in the RLQ; with no rebound tenderness, no guarding and not rigid Skin Rashes: no rashes Wounds: no wounds Neuro General: oriented to person, oriented to place, tone normal, moves all extremities, no meningeal signs, no focal motor deficits and CN's II-XI intact bilaterally Cranial nerves: Yes CN's II-XII intact bilaterally Extrem General: Yes normal to inspection NIH Stroke Scale Internal: Initial- Upon Arrival Level of Consciousness: Alert Level of Consciousness Questions: Answers one question correctly Level of Consciousness Commands: Performs both tasks correctly Best Gaze: Normal Visual: No visual loss Facial Palsy: Normal Motor Arm (Right): No drift Motor Arm (Left): No drift Motor Leg (Right): No drift Motor Leg (Left): No drift Limb Ataxia: Absent Sensory: Normal Best Language: No aphasia Dysarthia: Normal Extinction and Inattention: No abnormality Score: 1 Course Course Course Narrative: -1619--labs at patient's baseline. Chronic CKD. Troponin negative -viral testing negative XR chest 1V IMPRESSION: No gross acute airspace disease. Stable. CT head/brain wo IV con IMPRESSION: Extensive white matter disease likely related to small vessel occlusive disease. Prominence of the extra-axial CSF spaces along the hemicranial convexities suggesting volume loss and less likely chronic subdural hematomas versus hygromas. No acute intracranial hemorrhage. CT abdomen pelvis wo IV con IMPRESSION: Small hiatal hernia. Sigmoid diverticulosis without evidence of diverticulitis. -1630--ED care transferred to [facility] pending straight catheterization/UA and anticipated admission. Medical Decision Making Medical Decision Making [facility] Narrative: 78-year-old female with a past medical history of CKD, CVA, proximal AFib on Eliquis, endometrial CA, depression, iron-deficiency anemia, hypothyroid, schizophrenia, HTN, HLD, diabetes, unspecified dementia, presenting to the ED via EMS for increased lethargy/generalized weakness, unresponsiveness and confusion since yesterday per daughter w/appreciable facial droop. Patient reports lower abdominal pain, nausea, vomiting. At baseline patient mostly wheelchair-bound, confused. On exam vital signs stable, A&O x2 with baseline dementia, no focal deficits. Bibasilar diminished lung sounds, abdomen is soft with RLQ/lower abdominal tenderness, no rebound or guarding. Concern for encephalopathy vs infectious etiology vs metabolic abnormalities vs intra- abdominal process including appendicitis/diverticulitis vs colitis. Concern for ?subacute CVA although no appreciable facial droop as was reported and patient appears to be at baseline mentation but w/increased lethargy. Unlikely meningitis/encephalitis Low suspicion for severe sepsis Plan: EKG, labs, UA, CXR, head CT, re-evaluate Please refer to course for remaining clinical decision making, interpretation of labs/imaging results, and discussions with consultants and/or family members. Differential Diagnosis Differential Diagnoses: The differential diagnosis associated with the presentation includes As above Admission/Observation Consideration of admission/observation: Escalation of care including admission/observation considered Lab Data MDM Lab Attestation statement: I reviewed the patient's lab results. 08/08/24 14:15 08/08/24 14:15 Labs: Lab Results 08/08/24 Range/Units 14:15 WBC 7.6 (4.8-10.8) X10*3/uL RBC 4.48 (4.20-5.50) X10*6/uL Hgb 12.1 (12.0-16.0) g/dl Hct 36.1 L (37.0-47.0) % MCV 80.6 (80.0-98.0) fL MCH 27.0 (27.0-33.0) pg MCHC 33.5 (31.0-35.0) g/dl RDW 12.9 (11.0-16.0) % Plt Count 224 (160-400) X10*3/uL MPV 11.0 (9.4-12.3) fL Immature Gran % (Auto) 0.1 (0.0-0.4) % Neut % (Auto) 65.3 (45-73) % Lymph % (Auto) 25.1 (20-40) % [place] % (Auto) 6.6 (2-11) % Eos % (Auto) 2.5 (0-4) % Baso % (Auto) 0.4 (0-2) % Lymph # (Auto) 1.9 (1.2-4.9) X10*3/uL [place] # (Auto) 0.5 (0.1-1.2) X10*3/uL Eos # (Auto) 0.2 (0.0-0.4) X10*3/uL Baso # (Auto) 0.0 (0.0-0.2) X10*3/uL Abs Immat Gran (auto) 0.01 (0.00-0.03) X10*3/uL Absolute Neuts (auto) 4.9 (2.0-8.3) x10*3/uL Absolute Nucleated RBC 0.000 (0.0-0.012) X10*3/uL Nucleated RBC % (auto) 0.0 (0.0-0.2) /100WBC Sodium 141 (135-145) mmol/L Potassium 4.1 (3.3-5.1) mmol/L Chloride 112 H (96-108) mmol/L Carbon Dioxide 22 (22-29) mmol/L Anion Gap 11 L (12-20) BUN 34 H (9-16) mg/dL Creatinine 1.57 H (0.5-1.4) mg/dL Estim Creat Clear Calc 27.9 Estimated GFR 32 Random Glucose 175 H (60-115) mg/dL Calcium 9.4 (8.4-10.2) mg/dL Magnesium 2.4 (1.6-2.6) mg/dL Total Bilirubin 0.3 (0.0-1.0) mg/dL AST 22 (5-31) U/L ALT 13 (0-31) U/L Alkaline Phosphatase 81 (39-117) U/L Ammonia 34 (13-55) umol/L Total Creatine Kinase < 7 L (26-140) U/L Troponin I High Sens < 2.7 (<3.5-17.0) ng/L Total Protein 7.7 (6.5-8.0) g/dL Albumin 3.6 (3.5-5.0) g/dL Lipase 56 (8-78) U/L Influenza Type A (PCR) NEGATIVE (Negative) Influenza Type B (PCR) NEGATIVE (Negative) RSV RNA Qual (PCR) NEGATIVE (Negative) SARS-CoV-2 RNA (RT-PCR) NEGATIVE (Negative) Independent Interpretation I performed an independent interpretation of an: EKG (My interpretation EKG normal sinus rhythm rate of 60. MO interval 164. QTC 424. Inferior infarct now present when compared to prior. No STEMI ) Radiology Impression Discussion of test interpretation with radiology: I have reviewed the radiologist's reading. Independent Historian Clinical information obtained from an independent historian. History obtained from or confirmed by: EMS and Other (Daughter) External Record Review External record reviewed: Inpatient record, Office record, Outpatient record, Prior outpatient labs, Prior outpatient radiology, Primary care record and Outside ED record Tests considered The following testing was considered but not selected: As above Prescription Management I considered prescription management with: Pain Medication Chronic Conditions Patient?s care impacted by: Diabetes and Hypertension Social Determinants Patient?s care significantly limited by Social Determinants of Health including: Inadequate housing, Low income, Problems related to primary support group, Unemployment and Other Social Determinant of Health Discharge Plan Discharge Clinical Impression: Lethargy, Encephalopathy Patient Disposition: Still a Patient Prescriptions: No Action (DME) diabetic shoes with 3 inserts 8 See Rx Instructions .Route .MEDSUPPLY Qty: 3 0RF Rx Instructions: As directed (DME) blood-glucose meter [FreeStyle Precision En Meter] Mis See Rx Instructions .Route Qty: 1 0RF Rx Instructions: Tests 4 X/day (DME) lancets [TRUEplus Lancets] 33 gauge misc See Rx Instructions .ROUTE .COMPLEX Qty: 100 4RF Dose Instruction: TEST BLOOD SUGAR FOUR TIMES DAILY Rx Instructions: TEST BLOOD SUGAR FOUR TIMES DAILY (DME) FreeStyle [employer] Misc See Rx Instructions .Route Qty: 1 0RF Rx Instructions: As directed cholecalciferol (vitamin D3) [Vitamin D3] 25 mcg (1,000 unit) capsule 25 mcg PO DAILY Qty: 30 11RF magnesium oxide 250 mg magnesium tablet 250 mg PO BID Qty: 180 2RF metoprolol succinate 100 mg tablet extended release 24 hr 100 mg PO QAM Qty: 90 3RF atorvastatin 80 mg tablet 80 mg PO BEDTIME Qty: 30 11RF (DME) FreeStyle Precision En Strips Strip See Rx Instructions .ROUTE .COMPLEX Qty: 100 4RF Dose Instruction: TEST BLOOD SUGAR FOUR TIMES DAILY Rx Instructions: TEST BLOOD SUGAR FOUR TIMES DAILY metoclopramide HCl 5 mg tablet 5 mg PO TID Qty: 90 6RF Linzess 72 mcg capsule 72 mcg PO QAM Qty: 30 6RF (DME) pen needle, diabetic [UltiCare Pen Needle] 32 gauge x 5/32 needle See Rx Instructions .ROUTE .COMPLEX Qty: 200 4RF Dose Instruction: USE THREE TIMES DAILY Rx Instructions: USE THREE TIMES DAILY (DME) FreeStyle [employer] 2 Sensor Kit See Rx Instructions .ROUTE .COMPLEX Qty: 2 5RF Dose Instruction: USE DIRECTED TO TEST BLOOD SUGAR CHANGE EVERY 14 DAYS Rx Instructions: USE DIRECTED TO TEST BLOOD SUGAR CHANGE EVERY 14 DAYS (DME) lancets [TRUEplus Lancets] 33 gauge misc See Rx Instructions .ROUTE .COMPLEX Qty: 100 4RF Dose Instruction: TEST BLOOD SUGAR FOUR TIMES DAILY Rx Instructions: TEST BLOOD SUGAR FOUR TIMES DAILY Eliquis 5 mg tablet 5 mg PO BID Qty: 180 3RF ferrous sulfate 325 mg (65 mg iron) tablet 325 mg PO DAILY 90 Days Qty: 90 3RF tamoxifen 20 mg tablet 20 mg PO BEDTIME 30 Days Qty: 30 6RF amlodipine 10 mg tablet 10 mg PO QAM memantine 5 mg tablet 5 mg PO BID (DME) cane Device See Rx Instructions .Route Qty: 1 0RF Rx Instructions: As directed (DME) compr.stocking,knee,long,large Misc See Rx Instructions .ROUTE .MEDSUPPLY Qty: 12 0RF Rx Instructions: As directed (DME) pen needle, diabetic 32 gauge x 5/32 needle See Rx Instructions subcut .MEDSUPPLY Qty: 50 Rx Instructions: As directed simethicone 180 mg capsule 180 mg PO TID Qty: 90 3RF famotidine 20 mg tablet 20 mg PO DAILY Jardiance 10 mg tablet 10 mg PO DAILY 30 Days Qty: 30 11RF valsartan 320 mg tablet 320 mg PO .every evening insulin lispro [Humalog KwikPen Insulin] 100 unit/mL insulin pen 35 unit subcut TID 30 Days Qty: 31.5 11RF Rx Instructions: Hold dinner humalog if sugar less than 200. insulin degludec [Tresiba FlexTouch U-200] 200 unit/mL (3 mL) insulin pen 65 unit subcut DAILY Qty: 12 11RF Print Language: Wolof
[2024-08-08 14:28] LABS: MANUAL DIFF FLAG NO
[2024-08-08 14:30] LABS: Basophils Percent Auto 0.4 % (0-2); Eosinophils Absolute Auto 0.2 X10*3/uL (0.0-0.4); Eosinophils Percent Auto 2.5 % (0-4); Hematocrit 36.1 % (37.0-47.0); Hemoglobin 12.1 g/dl (12.0-16.0); Imm Gran Abs Auto 0.01 X10*3/uL (0.00-0.03); Imm Gran Pct Auto 0.1 % (0.0-0.4); Lymphocytes Absolute Auto 1.9 X10*3/uL (1.2-4.9); Lymphocytes Percent Auto 25.1 % (20-40); Mean Corpuscular HGB Conc 33.5 g/dl (31.0-35.0); Mean Corpuscular Volume 80.6 fL (80.0-98.0); Monocytes Absolute Auto 0.5 X10*3/uL (0.1-1.2); Monocytes Percent Auto 6.6 % (2-11); Neutrophils Absolute Auto 4.9 x10*3/uL (2.0-8.3); Neutrophils Percent Auto 65.3 % (45-73); Platelet Count 224 X10*3/uL (160-400); Red Blood Count 4.48 X10*6/uL (4.20-5.50); Red Cell Distribution Width 12.9 % (11.0-16.0); White Blood Count 7.6 X10*3/uL (4.8-10.8)
[2024-08-08 14:37] LABS: Ammonia 34 umol/L (13-55)
[2024-08-08 14:45] LABS: Alanine Aminotransferase 13 U/L (0-31); Albumin Level 3.6 g/dL (3.5-5.0); Alkaline Phosphatase 81 U/L (39-117); Anion Gap 11 (12-20); Aspartate Amino Transferase 22 U/L (5-31); Bilirubin Total 0.3 mg/dL (0.0-1.0); Blood Urea Nitrogen 34 mg/dL (9-16); Calcium 9.4 mg/dL (8.4-10.2); Carbon Dioxide 22 mmol/L (22-29); Chloride 112 mmol/L (96-108); Creatinine Clr Calc Pharmacy 27.9; Estimated Glomerular Filt Rate 32; Glucose Random 175 mg/dL (60-115); Potassium 4.1 mmol/L (3.3-5.1); Sodium 141 mmol/L (135-145); Total Protein 7.7 g/dL (6.5-8.0)
[2024-08-08 14:49] LABS: Lipase 56 U/L (8-78); Magnesium 2.4 mg/dL (1.6-2.6)
[2024-08-08 14:53] LABS: Troponin-I High Sensitivity < 2.7 ng/L (<3.5-17.0)
[2024-08-08 15:13] LABS: Influenza A PCR NEGATIVE (Negative); Influenza B PCR NEGATIVE (Negative); Resp Syncy Virus RNA Qual PCR NEGATIVE (Negative); SARS COV2 PCR INHOUSE NEGATIVE (Negative)
[2024-08-08 17:21] LABS: Appearance Urine Cloudy; Color Urine Yellow; Glucose Urine UA >=1000 mg/dL (Negative); Leukocyte Esterase Urine Small (1+) (Negative); Nitrite Urine Positive (Negative); PH 5.5 (5.0-9.0); Specific Gravity - Urine 1.015 (1.005-1.025); UMIC TRIGGER UACC YES; Urine Blood Negative (Negative); Urine Ketones Negative (Negative); Urine Protein 30 (1+) mg/dL (Neg-Trace)
[2024-08-08 17:30] LABS: Bacteria Urine 4+ (None Seen); Hyaline Casts Urine 0-2 /LPF (0-2); RBC Urine 0-2 /HPF (0-2); Squamous Epithelial Cell Urine 0-2 /HPF (0-2); UACC Culture Trigger YES; WBC Clumps Urine Present
--- NOTE | 2024-08-08 19:04 | PC.NURSE ---
assumed care of patient at this time resting in stretcher no complaints at this time. call hernandez within reach
[2024-08-08] MEDS: cefTRIAXone sodium 1 GM VIAL IVPUSH (19:06)
--- NOTE | 2024-08-08 19:16 | PC.NURSE ---
purwick placed at this time, patient due to void after straight catheterization
--- NOTE | 2024-08-08 19:39 | PM.IMHP ---
History of Present Illness Date of Service: 08/08/24 <SANTY Morrow - Last Filed: 08/08/24 20:33> Attending physician on admission: Juno Herrera <SANTY Morrow - Last Filed: 08/08/24 20:33> Chief Complaint: Increased lethargy and confusion <SANTY Morrow - Last Filed: 08/08/24 20:33> Pt is a 78-year-old female with a PMH significant for?hx of CVA, paroxysmal AFib on Eliquis, insulin-dependent type 2 diabetes, HTN, breast cancer on tamoxifen, unspecified dementia, endometrial cancer, CKD 3, GERD, and chronic constipation, who presents to the ED from home after family noted pt had increased lethargy and confusion x24 hours. 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 Is primarily wheelchair-bound and mildly confused at baseline. Family also initially reported potential facial droop, and noted pt has hx of CVAs. Pt herself complains of lower abdominal pain and nausea vomiting for the past few days. Pt however is a poor historian and alert and oriented to self and only partly to place. No chest pain/pressure, palpitations. Denies difficulty breathing or shortness for breath. In the ED pt was hypertensive up to 145/60, vitals otherwise stable and WNL. Labs were grossly unremarkable and around baseline for pt. No leukocytosis. Stable H&H. No significant electrolyte abnormalities. Creatinine 1.57, around baseline. Hepatic function WNL. Ammonia WNL. Troponin negative. UA consistent with acute UTI. Tested negative for flu, RSV, COVID. CXR showed no acute airspace disease. CTA of head without acute intracranial abnormalities, though showed extensive white matter disease. CT of abdomen/pelvis negative for acute abdomen. EKG demonstrated normal sinus rhythm without evidence of significant ST elevations or depressions. Pt was treated with ceftriaxone. Pt will be admitted to the hospital acute metabolic encephalopathy in the setting of acute UTI. <SANTY Morrow - Last Filed: 08/08/24 20:33> Review of Systems Review of Systems: Negative except for that which is stated in the HPI <SANTY Morrow - Last Filed: 08/08/24 20:33> [facility] Medical History: Medical History CKD (chronic kidney disease) stage 3, GFR 30-59 ml/min Acute stroke due to ischemia Abdominal bloating Elevated TSH Preoperative clearance Bilateral leg pain Urticaria Obesity (BMI 30-39.9) Diabetic nephropathy associated with type 2 diabetes mellitus Nausea and vomiting Microalbuminuria due to type 2 diabetes mellitus Paroxysmal atrial fibrillation Slurred speech History of endometrial cancer Depression Iron deficiency anemia History of left breast cancer Hypothyroidism Schizophrenia senior care (current) use of insulin Hypertension Dyslipidemia Diabetic polyneuropathy associated with type 2 diabetes mellitus Diabetes type 2, uncontrolled <SANTY Morrow - Last Filed: 08/08/24 20:33> Family History: Family History Father No problems noted. 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 Tobacco Use Status: Never used Tobacco Smoked in Last 30 Days: No e-Cigarette/Vaping Use: Never Used Second Hand Smoke Exposure: No Use of substances other than those prescribed or required for medical reasons: No Advance Directives: Yes Advance Directives on File: Yes Advance Directives Date on File: 08/16/23 Do you have a plan to hurt others: No Plan service: No Current occupational status: disabled Cognitive needs: Yes Hearing needs: No Vision needs: Yes <SANTY Morrow - Last Filed: 08/08/24 20:33> Meds Allergies/Adverse reactions: Allergies Allergy/AdvReac Type Severity Reaction Status Date / Time JERMAINE Inhibitors AdvReac Intermediate COUGH Verified 08/08/24 13:43 [JERMANIE INHIBITORS] lactose [LACTOSE] AdvReac Intermediate GI Verified 08/08/24 13:43 DISCOMFORT <SANTY Morrow - Last Filed: 08/08/24 20:33> Active Medications: Current Medications Acetaminophen (Acetaminophen 325 Mg Tablet) 650 mg PO Q6H PRN PRN Reason: Pain, Mild 1-3,fever,headache Calcium Carbonate (Calcium Carbonate 750 Mg Tab.Chew) 750 mg PO Q4H PRN PRN Reason: Heartburn Ceftriaxone Sodium (Ceftriaxone Sodium 1 Gm Vial) 1 gm IVPUSH Q24H RANDY Dextrose (Dextrose 50 % 25 Gm/50 Ml Syringe) 25 gm IVPUSH Q15M PRN; Protocol PRN Reason: per Hypoglycemia Standing Ord. Glucose (Glucose Gel 15 Gm Gel..Gram.) 15 gm PO Q15M PRN; Protocol PRN Reason: per Hypoglycemia Standing Ord. Insulin Human Lispro (Insulin Lispro 100 Unit/Ml 3 Ml Vial) 0 unit SUBCUT QIDACHS COUNTS INCLUDE 234 BEDS AT THE [facility]; Protocol Magnesium Hydroxide (Milk Of Magnesia 30 Ml Oral.Susp) 30 ml PO DAILY PRN PRN Reason: Constipation Melatonin (Melatonin 3 Mg Tablet) 6 mg PO BEDTIME PRN PRN Reason: Insomnia Ondansetron HCl (Ondansetron Hcl 4 Mg/2 Ml Vial) 4 mg IVPUSH Q8H PRN PRN Reason: Nausea and Vomiting Sodium Chloride (0.9 % Sodium Chloride Flush 3 Ml Syringe) 3 ml IVFSH [facility] <SANTY Morrow - Last Filed: 08/08/24 20:33> Home medications: Home Medications ?Medication ?Instructions ?Recorded ?Confirmed ?Last Taken ?Type pen needle, diabetic 32 gauge x #50 ea 04/09/20 07/17/24 Unknown History amlodipine 10 mg tablet 10 mg PO QAM 11/12/23 07/17/24 Unknown History memantine 5 mg tablet 5 mg PO BID 11/12/23 07/17/24 Unknown History famotidine 20 mg tablet 20 mg PO DAILY 12/30/23 07/17/24 Unknown History valsartan 320 mg tablet 320 mg PO .every evening 07/17/24 07/17/24 Unknown History insulin degludec 200 unit/mL (3 65 unit subcut DAILY 08/08/24 Unknown History mL) subcutaneous pen (Tresiba FlexTouch U-200 insulin) insulin glargine U-300 conc 300 87 unit subcut DAILY 08/08/24 Unknown History unit/mL (3 mL) subcutaneous pen (Toujeo Max U-300 SoloStar) omeprazole 20 mg capsule,delayed 20 mg PO DAILY@0630 08/08/24 Unknown History release <SANTY Morrow - Last Filed: 08/08/24 20:33> Physical Exam Vital Signs and Narrative: Vital Signs: Last Vital Signs Temp 97.9 F 08/08/24 19:02 Pulse 60 08/08/24 19:02 Resp 16 08/08/24 19:02 BP 141/59 H 08/08/24 19:02 Pulse Ox 98 08/08/24 19:02 O2 Del Method Room Air 08/08/24 19:02 BMI result Body Mass Index 35.2 <SANTY Morrow - Last Filed: 08/08/24 20:33> General: Alert and oriented to person and partly to place (knows she is in a hospital but not which one). Not oriented to time or situation. In no acute distress. Resp: CTA bilaterally CVS: S1, S2, RRR GI: +BS, NT, no distention Skin: Warm, dry Neuro: Cranial nerves II-XII grossly intact bilaterally. Motor grossly intact bilaterally. No facial droop appreciated. No focal neurodeficits noted. Extremities: No edema Psych: Pleasantly confused. <SANTY Morrow - Last Filed: 08/08/24 20:33> Results Labs CBC and Chem 7: 08/08/24 14:15 08/08/24 14:15 <SANTY Morrow - Last Filed: 08/08/24 20:33> Labs: Laboratory Results - last 24 hr 08/08/24 08/08/24 14:15 17:14 MCV 80.6 MCH 27.0 MCHC 33.5 RDW 12.9 Plt Count 224 MPV 11.0 Immature Gran % (Auto) 0.1 Neut % (Auto) 65.3 Lymph % (Auto) 25.1 [place] % (Auto) 6.6 Eos % (Auto) 2.5 Baso % (Auto) 0.4 Lymph # (Auto) 1.9 [place] # (Auto) 0.5 Eos # (Auto) 0.2 Baso # (Auto) 0.0 Abs Immat Gran (auto) 0.01 Absolute Neuts (auto) 4.9 Absolute Nucleated RBC 0.000 Nucleated RBC % (auto) 0.0 Anion Gap 11 L Estim Creat Clear Calc 27.9 Estimated GFR 32 Random Glucose 175 H Calcium 9.4 Magnesium 2.4 Total Bilirubin 0.3 AST 22 ALT 13 Alkaline Phosphatase 81 Ammonia 34 Total Creatine Kinase < 7 L Total Protein 7.7 Albumin 3.6 Lipase 56 Urine Color Yellow Urine Appearance Cloudy Urine pH 5.5 Ur Specific [place] 1.015 Urine Protein 30 (1+) H Urine Glucose (UA) >=1000 H Urine Ketones Negative Urine Blood Negative Urine Nitrite Positive H Ur Leukocyte Esterase Small (1+) H Urine RBC 0-2 Urine WBC 11-20 H Urine WBC Clumps Present Ur Squamous Epith Cells 0-2 Urine Bacteria 4+ Hyaline Casts 0-2 Urine Yeast Present Influenza Type A (PCR) NEGATIVE Influenza Type B (PCR) NEGATIVE RSV RNA Qual (PCR) NEGATIVE SARS-CoV-2 RNA (RT-PCR) NEGATIVE <SANTY Morrow - Last Filed: 08/08/24 20:33> Imaging Radiologist's Impressions: Impressions Abdomen/Pelvis CT 08/08/24 14:03 IMPRESSION: Small hiatal hernia. Sigmoid diverticulosis without evidence of diverticulitis. Electronically signed by: David Garcia MD 08/08/2024 03:31 PM EDT RP Chest X-Ray 08/08/24 14:03 IMPRESSION: No gross acute airspace disease. Stable. Electronically signed by: Kurtis Velazquez MD 08/08/2024 02:41 PM EDT RP Head CT 08/08/24 14:50 IMPRESSION: Extensive white matter disease likely related to small vessel occlusive disease. Prominence of the extra-axial CSF spaces along the hemicranial convexities suggesting volume loss and less likely chronic subdural hematomas versus hygromas. No acute intracranial hemorrhage. Electronically signed by: Kurtis Velazquez MD 08/08/2024 03:35 PM EDT RP <SANTY Morrow - Last Filed: 08/08/24 20:33> Assessment and Plan (1) Urinary tract infection: Status: Acute <SANTY Morrow Last Filed: 08/08/24 20:33> (2) Acute metabolic encephalopathy: Status: Acute <SANTY Morrow - Last Filed: 08/08/24 20:33> Pt is a 78-year-old female with a PMH significant for?hx of CVA, paroxysmal AFib on Eliquis, insulin-dependent type 2 diabetes, HTN, breast cancer on tamoxifen, unspecified dementia, endometrial cancer, CKD 3, GERD, and chronic constipation, who presents to the ED from home after family noted pt had increased lethargy and confusion x24 hours. Pt will be admitted to the hospital acute metabolic encephalopathy in the setting of acute UTI. Acute metabolic encephalopathy in the setting of acute UTI Pt lethargic and confused above baseline x24 hours, UA+ No sepsis Will treat with ceftriaxone, started 08/08/2024 Monitor mentation Follow urine culture HTN Continue amlodipine, metoprolol, and valsartan Paroxysmal AFib Continue metoprolol and Eliquis Insulin-dependent type 2 diabetes Sliding-scale insulin, Lantus Diabetic diet HLD/hx of CVA Continue statin Hx of breast cancer Continue tamoxifen GERD PPI Dementia, unspecified Continue Coumadin Full Code Attending:?Dr. Herrera DVT Prophylaxis: On Eliquis Pt will require a hospitalization of at least two nights for treatment of?acute metabolic encephalopathy in the setting of acute UTI that will require administration of IV antibiotics and close monitoring of mentation. <SANTY Morrow - Last Filed: 08/08/24 20:33> Pt is a 78-year-old female with a PMH significant for?hx of CVA, paroxysmal AFib on Eliquis, insulin-dependent type 2 diabetes, HTN, breast cancer on tamoxifen, unspecified dementia, endometrial cancer, CKD 3, GERD, and chronic constipation, who presents to the ED from home after family noted pt had increased lethargy and confusion x24 hours. Pt will be admitted to the hospital acute metabolic encephalopathy in the setting of acute UTI. Acute metabolic encephalopathy in the setting of acute UTI Pt lethargic and confused above baseline x24 hours, UA+ No sepsis Will treat with ceftriaxone, started 08/08/2024 Monitor mentation Follow urine culture HTN Continue amlodipine, metoprolol, and valsartan Paroxysmal AFib Continue metoprolol and Eliquis Insulin-dependent type 2 diabetes Sliding-scale insulin, Lantus Diabetic diet HLD/hx of CVA Continue statin Hx of breast cancer Continue tamoxifen GERD PPI Dementia, unspecified Continue memantine Full Code Attending:?Dr. Herrera DVT Prophylaxis: On Eliquis Pt will require a hospitalization of at least two nights for treatment of?acute metabolic encephalopathy in the setting of acute UTI that will require administration of IV antibiotics and close monitoring of mentation. <Juno Herrera MD - Last Filed: 08/08/24 20:36> Quality Stroke Does the patient have a stroke diagnosis?: No <SANTY Morrow - Last Filed: 08/08/24 20:33> VTE Prior VTE?: No <SANTY Morrow - Last Filed: 08/08/24 20:33> VTE Risk Level:: Medical - moderate - high <SANTY Morrow - Last Filed: 08/08/24 20:33> VTE Device Contraindication: Treatment Not Indicated <SANTY Morrow - Last Filed: 08/08/24 20:33> VTE Drug Contraindication: N/A - Med Ordered <SANTY Morrow - Last Filed: 08/08/24 20:33>
[2024-08-08 20:18] LABS: Glucose, Whole Blood 240 mg/dL (60-115)
[2024-08-08] MEDS: Insulin Lispro 100 UNIT/ML 3 ML VIAL SUBCUT (21:22)
--- NOTE | 2024-08-08 23:57 | MHC.EDTECH ---
0000 rounding done ,vitals taken ,Patient was reposition and boosted up in bed .
[2024-08-09] VITALS (7 sets, daily range): BP systolic 125–166; BP diastolic 45–76; PULSE 56–61; RESP 12–18; TEMP 36.3–37; O2SAT 96–98; BMI 34.7
--- NOTE | 2024-08-09 02:08 | MHC.EDTECH ---
0200 rounding done ,Patient sleeping .Safety measure in Place .
--- NOTE | 2024-08-09 03:30 | PC.NURSE ---
Assumed care of pt at 0330. PT resting quietly overall calm and cooperative although pt periodically yelling [place]! . VSS. Safety precautions in place. Plan of care ongoing
--- NOTE | 2024-08-09 03:58 | MHC.EDTECH ---
0400 rounding done ,Patient awake ,no apparent distress noted ,Vitals taken ,all safety measure in Place .
[2024-08-09 05:16] LABS: MANUAL DIFF FLAG NO
[2024-08-09 05:18] LABS: Basophils Percent Auto 0.5 % (0-2); Eosinophils Absolute Auto 0.3 X10*3/uL (0.0-0.4); Eosinophils Percent Auto 3.4 % (0-4); Hematocrit 34.6 % (37.0-47.0); Hemoglobin 11.2 g/dl (12.0-16.0); Imm Gran Abs Auto 0.02 X10*3/uL (0.00-0.03); Imm Gran Pct Auto 0.3 % (0.0-0.4); Lymphocytes Absolute Auto 2.6 X10*3/uL (1.2-4.9); Lymphocytes Percent Auto 32.2 % (20-40); Mean Corpuscular HGB Conc 32.4 g/dl (31.0-35.0); Mean Corpuscular Hemoglobin 26.7 pg (27.0-33.0); Mean Corpuscular Volume 82.6 fL (80.0-98.0); Mean Platelet Volume 11.4 fL (9.4-12.3); Monocytes Absolute Auto 0.6 X10*3/uL (0.1-1.2); Monocytes Percent Auto 8.1 % (2-11); Neutrophils Absolute Auto 4.4 x10*3/uL (2.0-8.3); Neutrophils Percent Auto 55.5 % (45-73); Platelet Count 214 X10*3/uL (160-400); Red Blood Count 4.19 X10*6/uL (4.20-5.50); White Blood Count 7.9 X10*3/uL (4.8-10.8)
[2024-08-09 05:34] LABS: Anion Gap 14 (12-20); Blood Urea Nitrogen 32 mg/dL (9-16); Calcium 9.4 mg/dL (8.4-10.2); Carbon Dioxide 21 mmol/L (22-29); Chloride 115 mmol/L (96-108); Creatinine Clr Calc Pharmacy 32.7; Estimated Glomerular Filt Rate 38; Glucose Random 130 mg/dL (60-115); Potassium 4.5 mmol/L (3.3-5.1); Sodium 145 mmol/L (135-145)
--- NOTE | 2024-08-09 06:20 | MHC.EDTECH ---
0600 rounding done ,vitals taken ,Patient was incontinent of urine ,care given ,gown and bedding change ,Patient was awake all night ,drank 120 ml brett leonela .All safety measure in Place .warm blanket given .
[2024-08-09] MEDS: 0.9 % Sodium Chloride Flush 3 ML SYRINGE IVFLUSH ×3 (06:23→22:06)
[2024-08-09 07:14] LABS: Glucose, Whole Blood 141 mg/dL (60-115)
[2024-08-09 09:09] LABS: Glucose, Whole Blood 187 mg/dL (60-115)
--- NOTE | 2024-08-09 09:46 | PC.NURSE ---
Admitted for UTI, confusion, [facility] at bediside for admission.
--- NOTE | 2024-08-09 09:47 | PC.NURSE ---
Family to come get Home meds from patient, Meds in the medication room.
--- NOTE | 2024-08-09 10:24 | PC.NURSE ---
dgt is here to potato picker meds and bring them home.
[2024-08-09 11:23] LABS: Glucose, Whole Blood 211 mg/dL (60-115)
[2024-08-09] MEDS: Insulin Lispro 100 UNIT/ML 3 ML VIAL SUBCUT ×3 (11:35→22:05)
--- NOTE | 2024-08-09 12:38 | HO.PM.IMPN ---
Subjective Subjective Date of Service: 08/09/24 Interval History: Acute metabolic encephalopathy Review of Systems mental status somewhat improving no fevers Physical Exam Vital Signs: Vital Signs: Last Vital Signs Temp 97.4 F 08/09/24 09:09 Pulse 59 08/09/24 09:09 Resp 12 08/09/24 09:09 BP 146/67 H 08/09/24 09:09 Pulse Ox 97 08/09/24 09:09 O2 Del Method Room Air 08/09/24 09:09 BMI result Body Mass Index 34.7 Appearance: Alert.? Oriented X2, seems confusion somewhat improving. cvs: rrr, [id number]. res: air entry fair , no rales / wheezing abd: no rebound or guarding ,nt, bs present. ext pulses present , no cyanosis . neuro: axo3 , nonfocal. Objective Data Active Medications Acetaminophen (Acetaminophen 325 Mg Tablet) 650 mg PO Q6H PRN PRN Reason: Pain, Mild 1-3,fever,headache Calcium Carbonate (Calcium Carbonate 750 Mg Tab.Chew) 750 mg PO Q4H PRN PRN Reason: Heartburn Ceftriaxone Sodium (Ceftriaxone Sodium 1 Gm Vial) 1 gm IVPUSH Q24H [facility] Dextrose (Dextrose 50 % 25 Gm/50 Ml Syringe) 25 gm IVPUSH Q15M PRN; Protocol PRN Reason: per Hypoglycemia Standing Ord. Glucose (Glucose Gel 15 Gm Gel..Gram.) 15 gm PO Q15M PRN; Protocol PRN Reason: per Hypoglycemia Standing Ord. Insulin Human Lispro (Insulin Lispro 100 Unit/Ml 3 Ml Vial) 0 unit SUBCUT QIDACHS [facility]; Protocol Last Admin: 08/09/24 11:35 Dose: 4 unit Documented By: LUIS Magnesium Hydroxide (Milk Of Magnesia 30 Ml Oral.Susp) 30 ml PO DAILY PRN PRN Reason: Constipation Melatonin (Melatonin 3 Mg Tablet) 6 mg PO BEDTIME PRN PRN Reason: Insomnia Ondansetron HCl (Ondansetron Hcl 4 Mg/2 Ml Vial) 4 mg IVPUSH Q8H PRN PRN Reason: Nausea and Vomiting Sodium Chloride (0.9 % Sodium Chloride Flush 3 Ml Syringe) [facility] Last Admin: 08/09/24 07:28 Dose: 3 ml Documented By: MIKAYLA Ozuna 08/09/24 04:40 08/09/24 04:40 Labs: Laboratory Results - last 24 hr 08/08/24 08/08/24 08/08/24 14:15 17:14 20:14 MCV 80.6 MCH 27.0 MCHC 33.5 RDW 12.9 Plt Count 224 MPV 11.0 Immature Gran % (Auto) 0.1 Neut % (Auto) 65.3 Lymph % (Auto) 25.1 [place] % (Auto) 6.6 Eos % (Auto) 2.5 Baso % (Auto) 0.4 Lymph # (Auto) 1.9 Milam # (Auto) 0.5 Eos # (Auto) 0.2 Baso # (Auto) 0.0 Abs Immat Gran (auto) 0.01 Absolute Neuts (auto) 4.9 Absolute Nucleated RBC 0.000 Nucleated RBC % (auto) 0.0 Anion Gap 11 L Estim Creat Clear Calc 27.9 Estimated GFR 32 POC Glucose 240 H Random Glucose 175 H Calcium 9.4 Magnesium 2.4 Total Bilirubin 0.3 AST 22 ALT 13 Alkaline Phosphatase 81 Ammonia 34 Total Creatine Kinase < 7 L Total Protein 7.7 Albumin 3.6 Lipase 56 Urine Color Yellow Urine Appearance Cloudy Urine pH 5.5 Ur Specific [place] 1.015 Urine Protein 30 (1+) H Urine Glucose (UA) >=1000 H Urine Ketones Negative Urine Blood Negative Urine Nitrite Positive H Ur Leukocyte Esterase Small (1+) H Urine RBC 0-2 Urine WBC 11-20 H Urine WBC Clumps Present Ur Squamous Epith Cells 0-2 Urine Bacteria 4+ Hyaline Casts 0-2 Urine Yeast Present Influenza Type A (PCR) NEGATIVE Influenza Type B (PCR) NEGATIVE RSV RNA Qual (PCR) NEGATIVE SARS-CoV-2 RNA (RT-PCR) NEGATIVE 08/09/24 08/09/24 08/09/24 04:40 07:11 09:03 MCV 82.6 MCH 26.7 L MCHC 32.4 RDW 13.0 Plt Count 214 MPV 11.4 Immature Gran % (Auto) 0.3 Neut % (Auto) 55.5 Lymph % (Auto) 32.2 [place] % (Auto) 8.1 Eos % (Auto) 3.4 Baso % (Auto) 0.5 Lymph # (Auto) 2.6 [place] # (Auto) 0.6 Eos # (Auto) 0.3 Baso # (Auto) 0.0 Abs Immat Gran (auto) 0.02 Absolute Neuts (auto) 4.4 Absolute Nucleated RBC 0.000 Nucleated RBC % (auto) 0.0 Anion Gap 14 Estim Creat Clear Calc 32.7 Estimated GFR 38 POC Glucose 141 H 187 H Random Glucose 130 H Calcium 9.4 Magnesium Total Bilirubin AST ALT Alkaline Phosphatase Ammonia Total Creatine Kinase Total Protein Albumin Lipase Urine Color Urine Appearance Urine pH Ur Specific [place] Urine Protein Urine Glucose (UA) Urine Ketones Urine Blood Urine Nitrite Ur Leukocyte Esterase Urine RBC Urine WBC Urine WBC Clumps Ur Squamous Epith Cells Urine Bacteria Hyaline Casts Urine Yeast Influenza Type A (PCR) Influenza Type B (PCR) RSV RNA Qual (PCR) SARS-CoV-2 RNA (RT-PCR) 08/09/24 11:19 MCV MCH MCHC RDW Plt Count MPV Immature Gran % (Auto) Neut % (Auto) Lymph % (Auto) [place] % (Auto) Eos % (Auto) Baso % (Auto) Lymph # (Auto) [place] # (Auto) Eos # (Auto) Baso # (Auto) Abs Immat Gran (auto) Absolute Neuts (auto) Absolute Nucleated RBC Nucleated RBC % (auto) Anion Gap Estim Creat Clear Calc Estimated GFR POC Glucose 211 H Random Glucose Calcium Magnesium Total Bilirubin AST ALT Alkaline Phosphatase Ammonia Total Creatine Kinase Total Protein Albumin Lipase Urine Color Urine Appearance Urine pH Ur Specific [place] Urine Protein Urine Glucose (UA) Urine Ketones Urine Blood Urine Nitrite Ur Leukocyte Esterase Urine RBC Urine WBC Urine WBC Clumps Ur Squamous Epith Cells Urine Bacteria Hyaline Casts Urine Yeast Influenza Type A (PCR) Influenza Type B (PCR) RSV RNA Qual (PCR) SARS-CoV-2 RNA (RT-PCR) Assessment and Plan (1) Acute metabolic encephalopathy: Status: Acute (2) Urinary tract infection: Status: Acute Assessment and Plan: 78-year-old female with a PMH significant for?hx of CVA, paroxysmal AFib on Eliquis, insulin-dependent type 2 diabetes, HTN, breast cancer on tamoxifen, unspecified dementia, endometrial cancer, CKD 3, GERD, and chronic constipation, who presents to the ED from home after family noted pt had increased lethargy and confusion x24 hours. Pt will be admitted to the hospital acute metabolic encephalopathy in the setting of acute UTI. Acute metabolic encephalopathy in the setting of acute UTI confusion improving UA+,No sepsis,Follow urine culture continue with ceftriaxone, started 08/08/2024,Monitor mentation HTN:Continue amlodipine, metoprolol, and hold valsartan. ckd3b: cr flactuating ,hold valsartan and moniter. Paroxysmal AFib:Continue metoprolol and Eliquis Insulin-dependent type 2 diabetes: Sliding-scale insulin, Lantus Diabetic diet HLD/hx of CVA:Continue statin Hx of breast cancer Continue tamoxifen GERD PPI Dementia, unspecified Continue memantine Full Code DVT Prophylaxis: On Eliquis ongoing need for hospitalization - treatment of?acute metabolic encephalopathy in the setting of acute UTI that will require administration of IV antibiotics and close monitoring of mentation Quality Stroke Does the patient have a stroke diagnosis?: No VTE Prior VTE?: No VTE Risk Level:: Medical - moderate - high VTE Device Contraindication: Treatment Not Indicated VTE Drug Contraindication: N/A - Med Ordered
--- NOTE | 2024-08-09 13:22 | PHA.MEDREC ---
Pharmacy Consult ? Medication Reconciliation Pharmacy has completed the medication reconciliation.Med rec complete, used popcorn attendant and daughter brought in med box
[2024-08-09] MEDS: amLODIPine Besylate 10 MG TABLET PO (14:02)
[2024-08-09] MEDS: Apixaban 5 MG TABLET PO ×2 (14:02→22:05)
[2024-08-09] MEDS: Metoprolol Succinate ER 100 MG TAB.ER.24H PO (14:03)
[2024-08-09] MEDS: Metoclopramide HCl 5 MG TABLET PO ×2 (14:03→22:05)
--- NOTE | 2024-08-09 16:20 | MHC.CM.PN ---
CM MET WITH PTS DAUGHTER/HCP, GUALBERTO, AT BEDSIDE WITH A CAR PILOT SHE SAYS PT LIVES ALONE, BUT HAS A [employer] PLASTIC DURING THE DAY, AND THEN GUALBERTO AND HER SISTER CARE FOR HER IN THE EVENING PT IS ALONE OVERNIGHT ONLY PT HAS A WALKER, CANE, WHEEL CHAIR, AND COMMODE HCP ON FILE PCP: JOHNNY ENNIS IMM DELIVERED DCP: TBD, PTS DAUGHTER ASKING ABOUT HOSPICE BUT WOULD LIKE TO THINK ABOUT IT BEFORE A CONSULT IS ARRANGED PT WILL DC HOME WITH RESUMPTION OF [employer] AND FAMILY SUPPORT VIA FAMILY TRANSPORT
[2024-08-09 16:28] LABS: Glucose, Whole Blood 250 mg/dL (60-115)
[2024-08-09] MEDS: cefTRIAXone sodium 1 GM VIAL IVPUSH (18:30)
[2024-08-09 20:24] LABS: Glucose, Whole Blood 286 mg/dL (60-115)
[2024-08-09] MEDS: Atorvastatin Calcium 80 MG TABLET PO (22:05)
[2024-08-09] MEDS: Insulin Glargine,Hum.rec.anlog 100 UNIT/ML 10 ML VIAL 10 UNIT SUBCUT (22:06)
[2024-08-09] MEDS: Tamoxifen Citrate 10 MG TABLET 20 MG PO (22:53)
[2024-08-10 03:49] VITALS: BP 132/58; PULSE 51; RESP 18; TEMP 36.4; O2SAT 95
[2024-08-10 07:34] LABS: Glucose, Whole Blood 169 mg/dL (60-115)
[2024-08-10 07:39] VITALS: BP 114/64; PULSE 67; RESP 16; TEMP 36.6; O2SAT 97
--- NOTE | 2024-08-10 08:12 | P.PNIM_ITS ---
Subjective Subjective Date of Service: 08/10/24 Interval History: uti Review of Systems mental status somewhat improving no fevers Physical Exam 2 Vital Signs: Vital Signs: Last Vital Signs Temp 97.8 F 08/10/24 07:39 Pulse 67 08/10/24 07:39 Resp 16 08/10/24 07:39 BP 114/64 08/10/24 07:39 Pulse Ox 97 08/10/24 07:39 O2 Del Method Room Air 08/10/24 07:39 BMI result Body Mass Index 34.7 Appearance: Alert.? Oriented X2, seems confusion somewhat improving. cvs: rrr, [id number]. res: air entry fair , no rales / wheezing abd: no rebound or guarding ,nt, bs present. ext pulses present , no cyanosis . neuro: axo3 , nonfocal. Objective Data Active Medications Acetaminophen (Acetaminophen 325 Mg Tablet) 650 mg PO Q6H PRN PRN Reason: Pain, Mild 1-3,fever,headache Amlodipine Besylate (Amlodipine Besylate 10 Mg Tablet) 10 mg PO DAILY [facility]; Protocol Last Admin: 08/09/24 14:02 Dose: 10 mg Documented By: LUIS Apixaban (Apixaban 5 Mg Tablet) 5 mg PO BID [facility] Last Admin: 08/09/24 22:05 Dose: 5 mg Documented By: REBEKA Atorvastatin Calcium (Atorvastatin Calcium 80 Mg Tablet) 80 mg PO BEDTIME [facility] Last Admin: 08/09/24 22:05 Dose: 80 mg Documented By: REBEKA Calcium Carbonate (Calcium Carbonate 750 Mg Tab.Chew) 750 mg PO Q4H PRN PRN Reason: Heartburn Ceftriaxone Sodium (Ceftriaxone Sodium 1 Gm Vial) 1 gm IVPUSH Q24H [facility] Last Admin: 08/09/24 18:30 Dose: 1 gm Documented By: LUIS Dextrose (Dextrose 50 % 25 Gm/50 Ml Syringe) 25 gm IVPUSH Q15M PRN; Protocol PRN Reason: per Hypoglycemia Standing Ord. Empagliflozin (Empagliflozin 10 Mg Tablet) 10 mg PO DAILY [facility] Ferrous Sulfate (Ferrous Sulfate 324 Mg Tablet.Dr) 324 mg PO DAILY [facility] Glucose (Glucose Gel 15 Gm Gel..Gram.) 15 gm PO Q15M PRN; Protocol PRN Reason: per Hypoglycemia Standing Ord. Insulin Glargine (Insulin Glargine,Hum.Rec.Anlog 100 Unit/Ml 10 Ml Vial) 10 unit SUBCUT BEDTIME [facility] Last Admin: 08/09/24 22:06 Dose: 10 unit Documented By: REBEKA Insulin Human Lispro (Insulin Lispro 100 Unit/Ml 3 Ml Vial) 0 unit SUBCUT QIDACHS [facility]; Protocol Last Admin: 08/09/24 22:05 Dose: 6 unit Documented By: REBEKA Magnesium Hydroxide (Milk Of Magnesia 30 Ml Oral.Susp) 30 ml PO DAILY PRN PRN Reason: Constipation Melatonin (Melatonin 3 Mg Tablet) 6 mg PO BEDTIME PRN PRN Reason: Insomnia Memantine (Memantine Hcl 5 Mg Tablet) 5 mg PO BID [facility] Metoclopramide HCl (Metoclopramide Hcl 5 Mg Tablet) 5 mg PO TID [facility] Last Admin: 08/09/24 22:05 Dose: 5 mg Documented By: REBEKA Metoprolol Succinate (Metoprolol Succinate Er 100 Mg Tab.Er.24h) 100 mg PO DAILY [facility]; Protocol Last Admin: 08/09/24 14:03 Dose: 100 mg Documented By: LUIS Comments: HR 59- Dr. Ruth Clancy okayed to admin medication. Non-Formulary Medication (Linaclotide [Linzess]) 72 mcg PO DAILY [facility] Ondansetron HCl (Ondansetron Hcl 4 Mg/2 Ml Vial) 4 mg IVPUSH Q8H PRN PRN Reason: Nausea and Vomiting Sodium Chloride (0.9 % Sodium Chloride Flush 3 Ml Syringe) 3 ml IVFLUSH QSHIFT [facility] Last Admin: 08/09/24 22:06 Dose: 3 ml Documented By: REBEKA Tamoxifen Citrate (Tamoxifen Citrate 10 Mg Tablet) 20 mg PO BEDTIME [facility] Last Admin: 08/09/24 22:53 Dose: 20 mg Documented By: REBEKA Vitamin D (Cholecalciferol (Vitamin D3) 25 Mcg Tablet) 25 mcg PO DAILY [facility] Labs 08/09/24 04:40 08/09/24 04:40 Labs: Laboratory Results - last 24 hr 08/09/24 08/09/24 08/09/24 09:03 11:19 16:23 POC Glucose 187 H 211 H 250 H 08/09/24 08/10/24 20:21 07:28 POC Glucose 286 H 169 H Microbiology Microbiology Results: Microbiology 08/08/24 17:36 Urine Culture - Preliminary Urine Catheterized - Chung Catheter Culture in progress. Assessment and Plan (1) Acute metabolic encephalopathy: Status: Acute (2) Urinary tract infection: Status: Acute Assessment and Plan: 78-year-old female with a PMH significant for?hx of CVA, paroxysmal AFib on Eliquis, insulin-dependent type 2 diabetes, HTN, breast cancer on tamoxifen, unspecified dementia, endometrial cancer, CKD 3, GERD, and chronic constipation, who presents to the ED from home after family noted pt had increased lethargy and confusion x24 hours. Pt will be admitted to the hospital acute metabolic encephalopathy in the setting of acute UTI. Acute metabolic encephalopathy in the setting of acute UTI confusion improving UA+,No sepsis,Follow urine culture continue with ceftriaxone, started 08/08/2024,Monitor mentation HTN:Continue amlodipine, metoprolol, and hold valsartan. ckd3b: cr flactuating ,hold valsartan and moniter. Paroxysmal AFib:Continue metoprolol and Eliquis Insulin-dependent type 2 diabetes: Sliding-scale insulin, Lantus Diabetic diet HLD/hx of CVA:Continue statin Hx of breast cancer Continue tamoxifen GERD PPI Dementia, unspecified Continue memantine Full Code DVT Prophylaxis: On Eliquis ongoing need for hospitalization - treatment of?acute metabolic encephalopathy in the setting of acute UTI that will require administration of IV antibiotics and close monitoring of mentation Quality Stroke Does the patient have a stroke diagnosis?: No VTE Prior VTE?: No VTE Risk Level:: Medical - moderate - high VTE Device Contraindication: Treatment Not Indicated VTE Drug Contraindication: N/A - Med Ordered
[2024-08-10] MEDS: Insulin Lispro 100 UNIT/ML 3 ML VIAL SUBCUT ×3 (08:34→20:02)
[2024-08-10] MEDS: Metoclopramide HCl 5 MG TABLET PO ×3 (08:35→19:47)
[2024-08-10] MEDS: Cholecalciferol (Vitamin D3) 25 MCG TABLET PO (08:35)
[2024-08-10] MEDS: Metoprolol Succinate ER 100 MG TAB.ER.24H PO (08:35)
[2024-08-10] MEDS: Apixaban 5 MG TABLET PO ×2 (08:35→19:47)
[2024-08-10] MEDS: Empagliflozin 10 MG TABLET PO (08:35)
[2024-08-10] MEDS: Memantine HCl 5 MG TABLET PO ×2 (08:35→19:47)
[2024-08-10] MEDS: amLODIPine Besylate 10 MG TABLET PO (08:35)
[2024-08-10 11:20] VITALS: BP 129/60; PULSE 86; RESP 16; TEMP 36.8; O2SAT 95
[2024-08-10 11:24] LABS: Glucose, Whole Blood 142 mg/dL (60-115)
[2024-08-10] MEDS: Ferrous Sulfate 324 MG TABLET.DR PO (14:07)
[2024-08-10 15:49] VITALS: BP 152/56; PULSE 56; RESP 16; TEMP 36.3; O2SAT 97
[2024-08-10 16:07] LABS: Glucose, Whole Blood 214 mg/dL (60-115)
--- NOTE | 2024-08-10 16:14 | MHC.CM.PN ---
PT NOT MEDICALLY CLEARED, DCP [facility] [employer] FAMILY TO TRANSPORT
[2024-08-10] MEDS: 0.9 % Sodium Chloride Flush 3 ML SYRINGE IVFLUSH ×2 (16:54→19:47)
[2024-08-10 19:40] VITALS: BP 139/64; PULSE 61; RESP 20; TEMP 36.9; O2SAT 97
[2024-08-10] MEDS: cefTRIAXone sodium 1 GM VIAL IVPUSH (19:44)
[2024-08-10 19:46] LABS: Glucose, Whole Blood 417 mg/dL (60-115)
[2024-08-10] MEDS: Tamoxifen Citrate 10 MG TABLET 20 MG PO (19:47)
[2024-08-10] MEDS: Atorvastatin Calcium 80 MG TABLET PO (19:47)
[2024-08-10] MEDS: Insulin Glargine,Hum.rec.anlog 100 UNIT/ML 10 ML VIAL 10 UNIT SUBCUT (20:03)
[2024-08-10] MEDS: Insulin Regular, Human 100 UNIT/ML 10 ML VIAL 10 UNIT IVPUSH (20:23)
[2024-08-11 00:02] VITALS: BP 133/61; PULSE 59; RESP 18; TEMP 36.6; O2SAT 95
--- NOTE | 2024-08-11 06:31 | PC.NURSE ---
Bedtime LSE=452, Dr. Herrera was notified, Lispro 10 units SC ordered and given, also RI 10 units IV ordered and given, no further POC ordered, pt slept fairly, assisted to the BR.
[2024-08-11 07:35] LABS: Glucose, Whole Blood 247 mg/dL (60-115)
[2024-08-11 07:44] VITALS: BP 153/63; PULSE 60; RESP 18; TEMP 36.2; O2SAT 97
[2024-08-11] MEDS: Insulin Lispro 100 UNIT/ML 3 ML VIAL SUBCUT ×4 (08:18→20:48)
[2024-08-11] MEDS: Empagliflozin 10 MG TABLET PO (08:18)
[2024-08-11] MEDS: 0.9 % Sodium Chloride Flush 3 ML SYRINGE IVFLUSH ×3 (08:18→20:48)
[2024-08-11] MEDS: Apixaban 5 MG TABLET PO ×2 (08:19→20:48)
[2024-08-11] MEDS: Memantine HCl 5 MG TABLET PO ×2 (08:19→20:48)
[2024-08-11] MEDS: Metoclopramide HCl 5 MG TABLET PO ×3 (08:19→20:48)
[2024-08-11] MEDS: Metoprolol Succinate ER 100 MG TAB.ER.24H PO (08:19)
[2024-08-11] MEDS: Ferrous Sulfate 324 MG TABLET.DR PO (08:19)
[2024-08-11] MEDS: Cholecalciferol (Vitamin D3) 25 MCG TABLET PO (08:19)
[2024-08-11] MEDS: amLODIPine Besylate 10 MG TABLET PO (08:19)
[2024-08-11] MEDS: LINZESS 72 MCG 72 EACH PO (08:20)
[2024-08-11 10:40] VITALS: BP 153/63; PULSE 60; O2SAT 97
[2024-08-11 11:29] LABS: Glucose, Whole Blood 275 mg/dL (60-115)
--- NOTE | 2024-08-11 13:21 | HO.PM.IMPN ---
Subjective Subjective Date of Service: 08/11/24 Interval History: uti Review of Systems generalised weak Physical Exam Vital Signs: Vital Signs: Last Vital Signs Temp 97.2 F 08/11/24 07:44 Pulse 60 08/11/24 10:40 Resp 18 08/11/24 07:44 BP 153/63 H 08/11/24 10:40 Pulse Ox 97 08/11/24 10:40 O2 Del Method Room Air 08/11/24 07:44 BMI result Body Mass Index 34.7 Appearance: Alert.? Oriented X2, seems confusion somewhat improving. cvs: rrr, [id number]. res: air entry fair , no rales / wheezing abd: no rebound or guarding ,nt, bs present. ext pulses present , no cyanosis . neuro: axo3 , nonfocal. Objective Data Active Medications Acetaminophen (Acetaminophen 325 Mg Tablet) 650 mg PO Q6H PRN PRN Reason: Pain, Mild 1-3,fever,headache Amlodipine Besylate (Amlodipine Besylate 10 Mg Tablet) 10 mg PO DAILY [facility]; Protocol Last Admin: 08/11/24 08:19 Dose: 10 mg Documented By: MAGDA Apixaban (Apixaban 5 Mg Tablet) 5 mg PO BID [facility] Last Admin: 08/11/24 08:19 Dose: 5 mg Documented By: MAGDA Atorvastatin Calcium (Atorvastatin Calcium 80 Mg Tablet) 80 mg PO BEDTIME [facility] Last Admin: 08/10/24 19:47 Dose: 80 mg Documented By: CASTILBelle Calcium Carbonate (Calcium Carbonate 750 Mg Tab.Chew) 750 mg PO Q4H PRN PRN Reason: Heartburn Ceftriaxone Sodium (Ceftriaxone Sodium 1 Gm Vial) 1 gm IVPUSH Q24H [facility] Last Admin: 08/10/24 19:44 Dose: 1 gm Documented By: CASTILBelle Dextrose (Dextrose 50 % 25 Gm/50 Ml Syringe) 25 gm IVPUSH Q15M PRN; Protocol PRN Reason: per Hypoglycemia Standing Ord. Empagliflozin (Empagliflozin 10 Mg Tablet) 10 mg PO DAILY [facility] Last Admin: 08/11/24 08:18 Dose: 10 mg Documented By: MAGDA Ferrous Sulfate (Ferrous Sulfate 324 Mg Tablet.Dr) 324 mg PO DAILY [facility] Last Admin: 08/11/24 08:19 Dose: 324 mg Documented By: MAGDA Glucose (Glucose Gel 15 Gm Gel..Gram.) 15 gm PO Q15M PRN; Protocol PRN Reason: per Hypoglycemia Standing Ord. Insulin Glargine (Insulin Glargine,Hum.Rec.Anlog 100 Unit/Ml 10 Ml Vial) 10 unit SUBCUT BEDTIME [facility] Last Admin: 08/10/24 20:03 Dose: 10 unit Documented By: REBEKA Insulin Human Lispro (Insulin Lispro 100 Unit/Ml 3 Ml Vial) 0 unit SUBCUT QIDACHS [facility]; Protocol Last Admin: 08/11/24 11:46 Dose: 6 unit Documented By: MAGDA Magnesium Hydroxide (Milk Of Magnesia 30 Ml Oral.Susp) 30 ml PO DAILY PRN PRN Reason: Constipation Melatonin (Melatonin 3 Mg Tablet) 6 mg PO BEDTIME PRN PRN Reason: Insomnia Memantine (Memantine Hcl 5 Mg Tablet) 5 mg PO BID [facility] Last Admin: 08/11/24 08:19 Dose: 5 mg Documented By: MAGDA Metoclopramide HCl (Metoclopramide Hcl 5 Mg Tablet) 5 mg PO TID [facility] Last Admin: 08/11/24 08:19 Dose: 5 mg Documented By: MAGDA Metoprolol Succinate (Metoprolol Succinate Er 100 Mg Tab.Er.24h) 100 mg PO DAILY [facility]; Protocol Last Admin: 08/11/24 08:19 Dose: 100 mg Documented By: MAGDA Patient Own Med ( (Linzess 72 Mcg)) 72 mcg PO DAILY [facility] Last Admin: 08/11/24 08:20 Dose: 72 mcg Documented By: MAGDA Ondansetron HCl (Ondansetron Hcl 4 Mg/2 Ml Vial) 4 mg IVPUSH Q8H PRN PRN Reason: Nausea and Vomiting Sodium Chloride (0.9 % Sodium Chloride Flush 3 Ml Syringe) 3 ml IVFLUSH QSHIFT [facility] Last Admin: 08/11/24 08:18 Dose: 3 ml Documented By: MAGDA Tamoxifen Citrate (Tamoxifen Citrate 10 Mg Tablet) 20 mg PO BEDTIME [facility] Last Admin: 08/10/24 19:47 Dose: 20 mg Documented By: REBEKA Vitamin D (Cholecalciferol (Vitamin D3) 25 Mcg Tablet) 25 mcg PO DAILY [facility] Last Admin: 08/11/24 08:19 Dose: 25 mcg Documented By: HO.BEIT Labs 08/09/24 04:40 08/09/24 04:40 Labs: Laboratory Results - last 24 hr 08/10/24 08/10/24 08/11/24 16:02 19:41 07:27 POC Glucose 214 H 417 H* 247 H 08/11/24 11:16 POC Glucose 275 H Microbiology Microbiology Results: Microbiology 08/08/24 17:36 Urine Culture - Preliminary Urine Catheterized - Chung Catheter Gram negative manjeet Assessment and Plan (1) Acute metabolic encephalopathy: Status: Acute (2) Urinary tract infection: Status: Acute Assessment and Plan: 78-year-old female with a PMH significant for?hx of CVA, paroxysmal AFib on Eliquis, insulin-dependent type 2 diabetes, HTN, breast cancer on tamoxifen, unspecified dementia, endometrial cancer, CKD 3, GERD, and chronic constipation, who presents to the ED from home after family noted pt had increased lethargy and confusion x24 hours. Pt will be admitted to the hospital acute metabolic encephalopathy in the setting of acute UTI. Acute metabolic encephalopathy in the setting of acute UTI confusion improving UA+,No sepsis,urine culture-gram neg manjeet pending identification/senstivities continue with ceftriaxone, started 08/08/2024,Monitor mentation HTN:Continue amlodipine, metoprolol, and hold valsartan. ckd3b: cr flactuating ,hold valsartan and moniter. Paroxysmal AFib:Continue metoprolol and Eliquis Insulin-dependent type 2 diabetes: Sliding-scale insulin, Lantus Diabetic diet HLD/hx of CVA:Continue statin Hx of breast cancer Continue tamoxifen GERD PPI Dementia, unspecified Continue memantine Full Code DVT Prophylaxis: On Eliquis ongoing need for hospitalization - treatment of?acute metabolic encephalopathy in the setting of acute UTI that will require administration of IV antibiotics and close monitoring of mentation Quality Stroke Does the patient have a stroke diagnosis?: No VTE Prior VTE?: No VTE Risk Level:: Medical - moderate - high VTE Device Contraindication: Treatment Not Indicated VTE Drug Contraindication: N/A - Med Ordered
[2024-08-11 15:37] VITALS: BP 116/65; PULSE 62; RESP 18; TEMP 36.9; O2SAT 97
[2024-08-11 16:20] LABS: Glucose, Whole Blood 323 mg/dL (60-115)
[2024-08-11] MEDS: cefTRIAXone sodium 1 GM VIAL IVPUSH (18:16)
[2024-08-11 20:34] LABS: Glucose, Whole Blood 284 mg/dL (60-115)
[2024-08-11] MEDS: Tamoxifen Citrate 10 MG TABLET 20 MG PO (20:47)
[2024-08-11] MEDS: Insulin Glargine,Hum.rec.anlog 100 UNIT/ML 10 ML VIAL 10 UNIT SUBCUT (20:48)
[2024-08-11] MEDS: Atorvastatin Calcium 80 MG TABLET PO (20:48)
[2024-08-11 23:33] VITALS: BP 129/60; PULSE 59; RESP 18; TEMP 36.9; O2SAT 97
[2024-08-12 07:33] LABS: Glucose, Whole Blood 248 mg/dL (60-115)
[2024-08-12 07:38] VITALS: BP 140/64; PULSE 64; RESP 18; TEMP 36; O2SAT 97
[2024-08-12] MEDS: LINZESS 72 MCG 72 EACH PO (08:31)
[2024-08-12] MEDS: Insulin Lispro 100 UNIT/ML 3 ML VIAL SUBCUT ×3 (08:31→16:19)
[2024-08-12] MEDS: Empagliflozin 10 MG TABLET PO (08:32)
[2024-08-12] MEDS: Memantine HCl 5 MG TABLET PO (08:32)
[2024-08-12] MEDS: amLODIPine Besylate 10 MG TABLET PO (08:32)
[2024-08-12] MEDS: Apixaban 5 MG TABLET PO (08:32)
[2024-08-12] MEDS: Metoprolol Succinate ER 100 MG TAB.ER.24H PO (08:32)
[2024-08-12] MEDS: Metoclopramide HCl 5 MG TABLET PO ×2 (08:33→14:13)
[2024-08-12] MEDS: 0.9 % Sodium Chloride Flush 3 ML SYRINGE IVFLUSH ×2 (08:33→16:19)
[2024-08-12] MEDS: Ferrous Sulfate 324 MG TABLET.DR PO (08:33)
[2024-08-12] MEDS: Cholecalciferol (Vitamin D3) 25 MCG TABLET PO (08:33)
--- NOTE | 2024-08-12 09:52 | MHC.CM.PN ---
pt dcd home with family and museum exhibit designer marvin,óscar to transport
--- NOTE | 2024-08-12 10:15 | PM.DS ---
DS: Providers Provider Date of Service: 08/12/24 Date of admission: 08/08/24 19:23 Date of discharge: 08/12/24 Primary care physician: Lois Salazar MD Attending physician on discharge: Karthik Clancy Discharging clinician: Karthik Clancy DS: Diagnosis Discharge Diagnosis (1) Acute metabolic encephalopathy: Status: Acute (2) Urinary tract infection: Status: Acute DS: Summary Hospital Course Hospital Course: HPI:78-year-old female with a PMH significant for?hx of CVA, paroxysmal AFib on Eliquis, insulin-dependent type 2 diabetes, HTN, breast cancer on tamoxifen, unspecified dementia, endometrial cancer, CKD 3, GERD, and chronic constipation, who presents to the ED from home after family noted pt had increased lethargy and confusion x24 hours. Pt will be admitted to the hospital acute metabolic encephalopathy in the setting of acute UTI. Hospital course: 78-year-old female with a PMH significant for?hx of CVA, paroxysmal AFib on Eliquis, insulin-dependent type 2 diabetes, HTN, breast cancer on tamoxifen, unspecified dementia, endometrial cancer, CKD 3, GERD, and chronic constipation, who presents to the ED from home after family noted pt had increased lethargy and confusion x24 hours. Pt will be admitted to the hospital acute metabolic encephalopathy in the setting of acute UTI-Acute metabolic encephalopathy in the setting of acute UTI: ua positive , urine culture sent ,started on iv antibiotics ,urine culture grew klebsiella/ ecoli senstive to ceftriaxone -with above supportive care patient improved .switched to po ceftin 250 mg bid x4 days. mental status is also back to baseline . family declined rehab , going home with family support. plan: switched to po ceftin 250 mg bid x4 days. follow up outpatient. Above management discussed with the patient in detail length she understand and in agreement with the above plan, time spent 40 minutes and 50% time spent on counseling. Time Attestation Total time managing care of this patient today: 40 mintues. Discharge Coordination Time (in mins): 40 min Quality: Safe Use of Opioids Does Pt have an Active Cancer Diagnosis on the Problem List?: No Quality: Stroke Does the patient have a stroke diagnosis?: No Physical Exam Vital Signs: Vital Signs: Last Vital Signs Temp 96.8 F 08/12/24 07:38 Pulse 64 08/12/24 07:38 Resp 18 08/12/24 07:38 BP 140/64 H 08/12/24 07:38 Pulse Ox 97 08/12/24 07:38 O2 Del Method Room Air 08/12/24 07:38 BMI result Body Mass Index 34.7 Appearance: Alert.? Oriented,mental status at baseline. cvs: rrr, [id number]. res: air entry fair. abd: no rebound or guarding ,nt, bs present. ext pulses present , no cyanosis . neuro: axo3 , nonfocal. DS: Data Data Completed and Pending Labs on day of discharge: Laboratory Results - last 24 hr 08/11/24 08/11/24 08/11/24 11:16 16:15 20:29 POC Glucose 275 H 323 H 284 H 08/12/24 07:25 POC Glucose 248 H Imaging Chest x-ray: Radiologist's impression: ITS Impressions Abdomen/Pelvis CT 08/08/24 14:03 IMPRESSION: Small hiatal hernia. Sigmoid diverticulosis without evidence of diverticulitis. Electronically signed by: David Garcia MD 08/08/2024 03:31 PM EDT RP Chest X-Ray 08/08/24 14:03 IMPRESSION: No gross acute airspace disease. Stable. Electronically signed by: Kurtis Velazquez MD 08/08/2024 02:41 PM EDT RP Head CT 08/08/24 14:50 IMPRESSION: Extensive white matter disease likely related to small vessel occlusive disease. Prominence of the extra-axial CSF spaces along the hemicranial convexities suggesting volume loss and less likely chronic subdural hematomas versus hygromas. No acute intracranial hemorrhage. Electronically signed by: Kurtis Velazquez MD 08/08/2024 03:35 PM EDT RP Discharge Plan Discharge Anticipated Discharge Date/Time: 08/11/24 13:30 Patient Disposition: Home, Self-Care Discharge Diagnosis: uti Referrals: Lois Salazar MD [Primary Care Provider] - 1 Week Discharge Medications: New cefuroxime axetil 250 mg tablet 250 mg PO Q12H Qty: 8 0RF Continued (DME) diabetic shoes with 3 inserts 8 See Rx Instructions .Route .MEDSUPPLY Qty: 3 0RF Rx Instructions: As directed (DME) blood-glucose meter [FreeStyle Precision En Meter] Misc See Rx Instructions .Route Qty: 1 0RF Rx Instructions: Tests 4 X/day (DME) lancets [TRUEplus Lancets] 33 gauge misc See Rx Instructions .ROUTE .COMPLEX Qty: 100 4RF Dose Instruction: TEST BLOOD SUGAR FOUR TIMES DAILY Rx Instructions: TEST BLOOD SUGAR FOUR TIMES DAILY (DME) FreeStyle Carola 2 [place] Misc See Rx Instructions .Route Qty: 1 0RF Rx Instructions: As directed cholecalciferol (vitamin D3) [Vitamin D3] 25 mcg (1,000 unit) capsule 25 mcg PO DAILY Qty: 30 11RF magnesium oxide 250 mg magnesium tablet 250 mg PO BID Qty: 180 2RF atorvastatin 80 mg tablet 80 mg PO BEDTIME Qty: 30 11RF (DME) FreeStyle Precision En Strips Strip See Rx Instructions .ROUTE .COMPLEX Qty: 100 4RF Dose Instruction: TEST BLOOD SUGAR FOUR TIMES DAILY Rx Instructions: TEST BLOOD SUGAR FOUR TIMES DAILY metoclopramide HCl 5 mg tablet 5 mg PO TID Qty: 90 6RF (DME) pen needle, diabetic [UltiCare Pen Needle] 32 gauge x /32 needle See Rx Instructions .ROUTE .COMPLEX Qty: 200 4RF Dose Instruction: USE THREE TIMES DAILY Rx Instructions: USE THREE TIMES DAILY (DME) FreeStyle Carola 2 Sensor Kit See Rx Instructions .ROUTE .COMPLEX Qty: 2 5RF Dose Instruction: USE DIRECTED TO TEST BLOOD SUGAR CHANGE EVERY 14 DAYS Rx Instructions: USE DIRECTED TO TEST BLOOD SUGAR CHANGE EVERY 14 DAYS (DME) lancets [TRUEplus Lancets] 33 gauge misc See Rx Instructions .ROUTE .COMPLEX Qty: 100 4RF Dose Instruction: TEST BLOOD SUGAR FOUR TIMES DAILY Rx Instructions: TEST BLOOD SUGAR FOUR TIMES DAILY Eliquis 5 mg tablet 5 mg PO BID Qty: 180 3RF ferrous sulfate 325 mg (65 mg iron) tablet 325 mg PO DAILY 90 Days Qty: 90 3RF tamoxifen 20 mg tablet 20 mg PO BEDTIME 30 Days Qty: 30 6RF amlodipine 10 mg tablet 10 mg PO DAILY memantine 5 mg tablet 5 mg PO BID insulin degludec [Tresiba FlexTouch U-200] 200 unit/mL (3 mL) insulin pen 64 unit subcut DAILY insulin lispro [Humalog KwikPen Insulin] 100 unit/mL insulin pen 30 unit subcut TIDAC Rx Instructions: Hold dinner humalog if sugar less than 200. metoprolol succinate 100 mg tablet extended release 24 hr 100 mg PO DAILY Linzess 72 mcg capsule 72 mcg PO DAILY (DME) cane Device See Rx Instructions .Route Qty: 1 0RF Rx Instructions: As directed (DME) compr.stocking,knee,long,large Misc See Rx Instructions .ROUTE .MEDSUPPLY Qty: 12 0RF Rx Instructions: As directed (DME) pen needle, diabetic 32 gauge x 5/32 needle See Rx Instructions subcut .MEDSUPPLY Qty: 50 Rx Instructions: As directed famotidine 20 mg tablet 20 mg PO BEDTIME Jardiance 10 mg tablet 10 mg PO DAILY 30 Days Qty: 30 11RF valsartan 320 mg tablet 320 mg PO DAILY Discharge Orders: Discharge Order (Routine); Ordered 08/12/24 Ordered By: Karthik Clancy Diet: Advance to usual diet Activity on Discharge: As tolerated Stand Alone Forms: Patient Portal Discharge page Print Language: Martiniquais Care Plan Goals: 78-year-old female with a PMH significant for?hx of CVA, paroxysmal AFib on Eliquis, insulin-dependent type 2 diabetes, HTN, breast cancer on tamoxifen, unspecified dementia, endometrial cancer, CKD 3, GERD, and chronic constipation, who presents to the ED from home after family noted pt had increased lethargy and confusion x24 hours. Pt will be admitted to the hospital acute metabolic encephalopathy in the setting of acute UTI-Acute metabolic encephalopathy in the setting of acute UTI: ua positive , urine culture sent ,started on iv antibiotics -with above supportive care patient improved . switched to po ceftin 250 mg bid x4 days. Health Concerns: as above. switched to po ceftin 250 mg bid x4 days. Plan of Treatment: as above. Assessment: as above.
[2024-08-12] MEDS: cefuroxime axetiL 250 MG TABLET PO ×2 (10:31→17:57)
[2024-08-12 11:30] LABS: Glucose, Whole Blood 300 mg/dL (60-115)
[2024-08-12 15:14] VITALS: BP 129/60; PULSE 60; RESP 20; TEMP 36.2; O2SAT 96
[2024-08-12 16:05] LABS: Glucose, Whole Blood 273 mg/dL (60-115)
--- NOTE | 2024-08-12 17:27 | PC.NURSE ---
Selma garcia from home returned to patient daughter Cinthia
--- NOTE | 2024-08-12 17:45 | PC.NURSE ---
Discharge instructions explained and given to daughter Cinthia with assistance of baffle mounter Christiana
--- NOTE | 2024-08-12 18:19 | PC.NURSE ---
RN called Shon malik but no answer,called second contact KRISTOPHER Ramirez asked in Swiss if family is coming to lemon picker patient ,was told family is coming
== END 2024-08-12 18:50 | disposition home or self-care (01) | DRG 689 ==
LOC: HO.ED 19:22 → HO.EDOVER 19:42 → HO.S3 08-09 07:52
PROVIDERS: Physician Assistant; Admitting Provider Student in an Organized Health Care Education/Training Program; Emergency Provider Emergency Medicine; PCP Family Medicine; Visit Provider Internal Medicine
DX: N39.0 Urinary tract infection, site not specified (principal); G93.41 Metabolic encephalopathy; C50.912 Malignant neoplasm of unspecified site of left female breast; I12.9 Hypertensive chronic kidney disease with stage 1 through stage 4 chronic kidney disease, or unspecified chronic kidney disease; N18.32 Chronic kidney disease, stage 3b; E11.22 Type 2 diabetes mellitus with diabetic chronic kidney disease; I48.0 Paroxysmal atrial fibrillation; E03.9 Hypothyroidism, unspecified; F03.90 Unspecified dementia, unspecified severity, without behavioral disturbance, psychotic disturbance, mood disturbance, and anxiety; E78.5 Hyperlipidemia, unspecified; Z86.73 Personal history of transient ischemic attack (TIA), and cerebral infarction without residual deficits; Z20.822 Contact with and (suspected) exposure to COVID-19; Z79.810 Long term (current) use of selective estrogen receptor modulators (SERMs); Z79.4 Long term (current) use of insulin; Z79.01 Long term (current) use of anticoagulants; Z79.899 Other long term (current) drug therapy
CPT/HCPCS: 0241U; 36415; 70450; 71045; 74176; 80048; 80053; 81001; 82140; 82550; 82947; 83690; 83735; 84484; 85025; 87086; 87088; 87186; 93005; 97163; 99285; J0696

== ENCOUNTER → 2024-08-08 14:03 | Outpatient (BNV) | payer OTHER, SELFPAY | PROVIDERS: Admitting Provider Student in an Organized Health Care Education/Training Program; Emergency Provider Emergency Medicine; PCP Family Medicine; Visit Provider Internal Medicine Cardiovascular Disease | DX: R94.31 Abnormal electrocardiogram [ECG] [EKG] (principal); R53.1 Weakness | CPT/HCPCS: 93010 ==

== ENCOUNTER → 2024-08-08 14:03 | Outpatient (BNV) | payer OTHER, SELFPAY | PROVIDERS: Emergency Provider Emergency Medicine; Visit Provider Radiology Diagnostic Radiology | DX: K44.9 Diaphragmatic hernia without obstruction or gangrene (principal); K57.30 Diverticulosis of large intestine without perforation or abscess without bleeding; R41.82 Altered mental status, unspecified | CPT/HCPCS: 70450; 71045; 74176 ==

== ENCOUNTER → 2024-08-08 19:23 | Outpatient (BNV) | payer OTHER, SELFPAY | PROVIDERS: Admitting Provider Student in an Organized Health Care Education/Training Program; Emergency Provider Emergency Medicine; Visit Provider Student in an Organized Health Care Education/Training Program | DX: G93.41 Metabolic encephalopathy (principal); N39.0 Urinary tract infection, site not specified | CPT/HCPCS: 99223; 99231; 99232; 99239 ==

== ENCOUNTER 2024-08-29 10:44 | Outpatient (AMB) | payer OTHER, SELFPAY ==
--- NOTE | 2024-08-29 08:17 | A.OFFVIS_ITS ---
Vital Signs 08/29/24 10:55 Height 5 ft 3 in Weight 178 lb 9.191 oz BMI 31.6 BP 122/78 Pulse 67 Pulse Source Pulse Oximeter Pulse Oximetry (%) 97 Oxygen Delivery Method Room Air Intake Visit Reasons: T2DM Intake Note: Patient presents today for a follow-up on Type 2 Diabetes Mellitus: Last Diabetic Eye exam: 09/2023 Last Podiatry Exam: Does not see a Electrical Appliance Repairer Most recent HbA1c: 8.0%, 08/29/2024 Random Glucose- 288 mg/dL, Today Polisher Aluminum Required: Yes Polisher Aluminum Language: Setswana Accompanied by: Daughter Allergies JERMAINE Inhibitors [JERMAINE INHIBITORS] Adverse Reaction (Intermediate, Verified 08/08/24 13:43) COUGH lactose [LACTOSE] Adverse Reaction (Intermediate, Verified 08/08/24 13:43) GI DISCOMFORT HPI Comments Details: Patient is a 78-year-old female with DM type 2 diagnosed 1995 who presents for management of diabetes. She was last seen 05/31/2024 with an A1c of 8.8% at which time she was advised to restart glucose sensor. Jardiance was added to her medication last fall. She was admitted to the hospital last month for acute encephalopathy secondary to UTI. A1C 05/31/23 8.8% 8.9% on 12/15. 4 months ago she was changed to Tresiba. Diabetes medications: Tresiba 65 units Humalog 35 units tid before meals Her daughter is 1 of her caregivers in his with her today in clinic. She reports she has tried having her mother where the EVRGRyle Carola 2 several times but she just pulls it off. She reports she have glucose meter today but that she just check her sugar before every dose of insulin. She reports her glucose readings have been on average 164-170 with the lowest having been 118. She has not had any symptomatic low sugars. Curriculum Consultant - CDE education: recently Electrical Appliance Repairer: none recently Dental exam: goes every 6 month Ophthalmology evaluation: Last appt November Has nephropathy followed by Dr. Ning mortensen seen 06/202408/09/2024 EGFR 38 She is followed by Cardiology for PAF and is on Eliquis with recommendations to reduce dosing if her creatinine is 1.5, this has come back down since her hospital stay Has neuropathy Diet can be high in conc sweets PFSH Medical History CKD (chronic kidney disease) stage 3, GFR 30-59 ml/min Acute stroke due to ischemia Abdominal bloating Elevated TSH Preoperative clearance Bilateral leg pain Urticaria Obesity (BMI 30-39.9) Diabetic nephropathy associated with type 2 diabetes mellitus Nausea and vomiting Microalbuminuria due to type 2 diabetes mellitus Paroxysmal atrial fibrillation Slurred speech History of endometrial cancer Depression Iron deficiency anemia History of left breast cancer Hypothyroidism Schizophrenia halfway (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 Absence of acromegalic features. Non verbal. Uses walker for ambulation. Neck exam reveals nl size thyroid about 15 gms. No thyroid nodules palpable. No carotid bruits present. Lungs CTA. Heart S1 S2, Reg R/R. No M/R G. No suprapubic tenderness, Skin exam reveals absence of vitiligo or acanthosis nigricans. No edema Visual exam of foot performed. No ulcerations or open lesions. No inter digit maceration or fissuring. No onychomycosis, no callouses. Unable to assess sensation due to dementia. Results Reviewed Results Reviewed: Laboratory Last Values Glucose (Clinic) 288 mg/dL (60-115) H 08/29/24 11:01 Assessment & Plan Assessment & Plan (1) Diabetes type 2, uncontrolled: Code(s): E11.65 - Type 2 diabetes mellitus with hyperglycemia Category: Medical Qualifiers: Glycemic state: with hyperglycemia Qualified Code(s): E11.65 - Type 2 diabetes mellitus with hyperglycemia Plan: 78 year old diabetic with nephropathy followed by nephrology with most recent EGFR 38. She was recently hospitalized with metabolic encephalopathy secondary to UTI. Glucose targets adjusted to age and comorbidities. She will follow up in 3 months. Daughter requested Glucerna. I have placed a Migdalia Whalen RD consult. The patient had an opportunity to ask questions regarding treatment plan. The patient expressed understanding and agreement with the above treatment plan. The patient is aware they should contact our office by phone for worsening glucose readings or for any low blood sugars which may warrant a change in diabetes medication. Compliance is encouraged with medications and any followup testing/consults which may have been ordered. Orders: Referrals Curriculum Consultant Nutrition Referral E11.65 - Type 2 diabetes mellitus with hyperglycemia Coding Level of Care Code Est Pt Level 4 (00243) Complex EM visit Add On G2211 Diagnoses Uncontrolled type 2 diabetes mellitus with hyperglycemia E11.65 Glycemic state: with hyperglycemia Time Spent (min) 30 Comment face to face, chart review, physical exam, note
[2024-08-29 10:55] VITALS: BP 122/78; PULSE 67; O2SAT 97; BMI 31.6
[2024-08-29 11:06] LABS: Glucose, Whole Blood 288 mg/dL (60-115)
--- OUTSIDE RECORDS SUMMARY | 2024-08-29 12:25 | XMS_ITS | Clinical Summary ---
Author Organization [facility] Address [address] [place] [id number] Care Team Providers Care Full Stack Software Engineer Name Role Phone Yesi Linares MD Primary Care Provider [phone] Medications amLODIPine (NORVASC) 10 MG tablet Take [...] Diabetes: Visual Foot Exam 06/22/2020 Influenza Vaccine (Season Ended) 2025 Hepatitis B Vaccine Aged Out No longe r eligible based on patient's age to complete this topic Insurance [place] ([id number]) [place] ([id number][place] Care Teams Full Stack Software Engineer Relationship Specialty Start Date End Date Yesi Linares MD [address] [place], [place] PCP - General 06/02/20
== END 2024-08-29 11:22 | disposition home or self-care (01) ==
LOC: HO.ENCR 10:44
PROVIDERS: PCP Family Medicine; Visit Provider Nurse Practitioner Adult Health
DX: E11.65 Type 2 diabetes mellitus with hyperglycemia (principal)
CPT/HCPCS: 99214; G2211

== ENCOUNTER → 2024-08-29 10:44 | Outpatient (BNVA) | payer OTHER, SELFPAY | PROVIDERS: PCP Family Medicine; Visit Provider Nurse Practitioner Adult Health | DX: E11.65 Type 2 diabetes mellitus with hyperglycemia (principal) | CPT/HCPCS: 82947; 99212 ==

== ENCOUNTER 2024-09-06 13:36 | Outpatient (AMB) | payer OTHER, SELFPAY ==
[2024-09-06 13:48] VITALS: BP 120/58; PULSE 70; O2SAT 98; BMI 31.6
--- NOTE | 2024-09-06 13:48 | HO.NEPHOV ---
Vital Signs 09/06/24 13:48 Height 5 ft 3 in Weight 178 lb 8 oz BMI 31.6 BP 120/58 L Blood Pressure Location Lt brachial Position Sitting Pulse 70 Pulse Source Pulse Oximeter Pulse Oximetry (%) 98 Oxygen Delivery Method Room Air Intake Visit Reasons: CKD/ Conf Time Study Technician Required: Yes Time Study Technician Language: Home Lighting Adviser Name: Luciano [id number] Accompanied by: Self / Same As Patient Allergies JERMAINE Inhibitors [JERMAINE INHIBITORS] Adverse Reaction (Intermediate, Verified 09/06/24 13:51) COUGH lactose [LACTOSE] Adverse Reaction (Intermediate, Verified 09/06/24 13:51) GI DISCOMFORT Medication List - Last Reconciled 09/06/24 by Bronson Barclay MD amlodipine 10 mg PO DAILY apixaban (Eliquis) 5 mg PO BID atorvastatin 80 mg PO BEDTIME blood sugar diagnostic (FreeStyle Precision En Strips) TEST BLOOD SUGAR FOUR TIMES DAILY blood-glucose meter (FreeStyle Precision En Meter) Tests 4 X/day cane As directed cefuroxime axetil 250 mg PO Q12H cholecalciferol (vitamin D3) (Vitamin D3) 25 mcg PO DAILY compr.stocking,knee,long,large As directed [diabetic shoes with 3 inserts As directed] empagliflozin (Jardiance) 10 mg PO DAILY 30 days famotidine 20 mg PO BEDTIME ferrous sulfate 325 mg PO DAILY 90 days flash glucose scanning reader (FreeStyle Carola 2 [place]) As directed flash glucose sensor (FreeStyle Carola 2 Sensor kit) USE DIRECTED TO TEST BLOOD SUGAR CHANGE EVERY 14 DAYS insulin degludec (Tresiba FlexTouch U-200 insulin) 64 units subcut DAILY insulin lispro (Humalog KwikPen (U-100) Insulin) 30 units subcut TIDAC lancets (TRUEplus Lancets) TEST BLOOD SUGAR FOUR TIMES DAILY lancets (TRUEplus Lancets) TEST BLOOD SUGAR FOUR TIMES DAILY linaclotide (Linzess) 72 mcg PO DAILY magnesium oxide 250 mg PO BID memantine 5 mg PO BID metoclopramide HCl 5 mg PO TID metoprolol succinate ER 100 mg PO DAILY pen needle, diabetic As directed pen needle, diabetic (UltiCare Pen Needle) USE THREE TIMES DAILY tamoxifen 20 mg PO BEDTIME 30 days valsartan 320 mg PO DAILY Do you need a note to return to daycare/school/sports/work: No HPI Comments Details: 77-year-old woman with a history of obesity and diabetes mellitus with its chronic kidney disease has been referred for evaluation of CKD. She has had high attention and diabetes medicines 1996. Upon reviewing the labs it appears that the blood sugars have been suboptimally controlled with a hemoglobin A1c of around 10%. She was also found to have significant proteinuria. She is on a maximum dose of valsartan of 320 mg. Baseline serum creatinine is between 1.1 to 1.2 mg/dL. In April the serum creatinine was 1.35 and 1.49 mg/dL. And hence this referral 11/08/23: Overall doing OK. Accompanied by daughter c/o abdominal distention - always and she keeps spitting frequently. No vomiting Time Study Technician service was used 01/12/24;c/o cough and vomiting 06/15/24;Overall doing well. JArdiance was added in Mar 15 ; 07/17/2024. Feels dizzy today. She has bloating in the stomach. No nausea or vomiting. 09/06/24: Still has abdominal discomfort. NO urinary issues PFSH Medical History CKD (chronic kidney disease) stage 3, GFR 30-59 ml/min Acute stroke due to ischemia Abdominal bloating Elevated TSH Preoperative clearance Bilateral leg pain Urticaria Obesity (BMI 30-39.9) Diabetic nephropathy associated with type 2 diabetes mellitus Nausea and vomiting Microalbuminuria due to type 2 diabetes mellitus Paroxysmal atrial fibrillation Slurred speech History of endometrial cancer Depression Iron deficiency anemia History of left breast cancer Hypothyroidism Schizophrenia senior care (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 Lungs entry equal no rales. Heart S1-S2 heard no gallop or rub. Abdomen soft nontender. Neuro alert awake oriented. No asterixis. Extremities no edema. Results Reviewed Nephrology Results: Hgb 11.2 g/dl (12.0-16.0) L 08/09/24 WBC 7.9 X10*3/uL (4.8-10.8) 08/09/24 Plt Count 214 X10*3/uL (160-400) 08/09/24 Sodium 145 mmol/L (135-145) 08/09/24 Potassium 4.5 mmol/L (3.3-5.1) 08/09/24 Chloride 115 mmol/L (96-108) H 08/09/24 Carbon Dioxide 21 mmol/L (22-29) L 08/09/24 BUN 32 mg/dL (9-16) H 08/09/24 Creatinine 1.34 mg/dL (0.5-1.4) 08/09/24 Calcium 9.4 mg/dL (8.4-10.2) 08/09/24 Urine Protein 30 (1+) mg/dL (Neg-Trace) H 08/08/24 Assessment & Plan Assessment & Plan (1) Hypertension: Code(s): I10 - Essential (primary) hypertension Category: Medical Qualifiers: Hypertension type: essential hypertension Qualified Code(s): I10 - Essential (primary) hypertension Plan: Goal is to maintain blood pressure less than 130/80. Discussed weight loss. She should stay on low-sodium diet. Continue with current antihypertensive regimen. Blood pressure is acceptable Changed valsartan to 320 mg q.p.m. instead of q.a.m and tolerating well (2) CKD (chronic kidney disease) stage 3, GFR 30-59 ml/min: Code(s): N18.30 - Chronic kidney disease, stage 3 unspecified Category: Medical Plan: CKD 3 with about 1 g of proteinuria in setting of longstanding diabetes mellitus. She probably has underlying diabetic nephropathy. There could be a component of CASS. Differential diagnosis would include hypoperfusion. She had a CT scan back in October which did not reveal any significant obstruction. Glomerulonephritis and interstitial disease seem Anemia due to CKD Hemoglobin - stable Goal is to slow the progression of renal disease. Discussed importance of tight control of blood sugar and maintain hemoglobin A1c less than 7%. Agree with maximizing ARB. She will benefit from the addition of SGLT 2 inhibitor. Renal ultrasonogram unremarkable in October 2023 Stomach fullness due to gastroparesis Continue with metoclopramide Coding Level of Care Code Est Pt Level 4 (45116) Diagnoses Essential hypertension I10 Hypertension type: essential hypertension CKD (chronic kidney disease) stage 3, GFR 30-59 ml/min N18.30
--- OUTSIDE RECORDS SUMMARY | 2024-09-06 16:41 | XMS_ITS | Clinical Summary ---
Author Organization [facility] Facility Address [address] [place] [id number] Care Team Providers Care Case Managers Name Role Phone Yesi Linares MD Primary Care Provider [phone] Medications amLODIPine (NORVASC) 10 MG tablet Take [...] Due Date Last Done Comments Pneumococcal Vaccine: 50+ Ye ars (1 of 1 - PCV) 11/30/1995 Diabetes: Hemoglobin A1C 06/22/2020 Diabetes: Ophthalmology Exam 06/22/2020 Diabetes: Pedal Pulse Checked 06/22/2020 Diabetes: Sensory Foot Exam 06/22/2020 Diabetes: Visual Foot Exam 06/22/2020 Influenza Vaccine (Season Ended) 2025 Hepatitis B Vaccine Aged Out No longe r eligible based on patient's age to complete this topic Insurance [place] Dual MCR/KAYCEE ([id number]) [place] Dual MCR/KAYCEE ([id number]) Care Teams Case Managers Relationship Specialty Start Date End Date Yesi Linares MD [address] [place], [place] PCP - General 06/02/20
== END 2024-09-06 14:00 | disposition home or self-care (01) ==
LOC: HO.HKA 13:37
PROVIDERS: PCP Family Medicine; Visit Provider Internal Medicine Hypertension Specialist
DX: I10 Essential (primary) hypertension (principal); N18.30 Chronic kidney disease, stage 3 unspecified
CPT/HCPCS: 99214

== ENCOUNTER → 2024-09-06 13:36 | Outpatient (BNVA) | payer OTHER, SELFPAY | PROVIDERS: PCP Family Medicine; Visit Provider Internal Medicine Hypertension Specialist | DX: I12.9 Hypertensive chronic kidney disease with stage 1 through stage 4 chronic kidney disease, or unspecified chronic kidney disease (principal); N18.30 Chronic kidney disease, stage 3 unspecified | CPT/HCPCS: 99212 ==

== ENCOUNTER 2024-10-22 11:02 | Outpatient (AMB) | payer OTHER, SELFPAY ==
--- NOTE | 2024-10-22 11:38 | A.OFFVIS_ITS ---
VS Expanded 10/22/24 11:39 10/24/24 10:17 Height 5 ft 3 in 5 ft 3 in Weight 180 lb 15.992 oz 181 lb BMI 32.1 32.1 Intake Visit Reasons: T2DM Allergies JERMAINE Inhibitors [JERMAINE INHIBITORS] Adverse Reaction (Intermediate, Verified 09/06/24 13:51) COUGH lactose [LACTOSE] Adverse Reaction (Intermediate, Verified 09/06/24 13:51) GI DISCOMFORT Nutrition Presentation Details: Pt presents for MNT for T2DM , Pt has hx of dementia, schizophrenia and alzheimers disease, CKD Pt presents with ORGAN PIPE MAKER METAL during this appointment Pt reports she wants to get glucerna prescription ORGAN PIPE MAKER METAL reports she works with Pt in the AM and Pt lacks variety in the diet, typically choosing 1 hasbrown and 2 eggs for breakfast and dinner and may refuse to eat lunch but may have a glucerna shake. Sometimes has 1c rice 1/2 c beans/and 2 oz chicken and water for lunch or may have a glucerna shake, current ly her daughter may buy it for the Pt Typical meal 9 am : hashbrown Potato and 2 eggs , water 12 : rice/beans, chicken, water or glucerna dinner: potato and egg may have sweets in between meals BS Monitoring Most Recent Diabetes Results: Creatinine 1.34 mg/dL (0.5-1.4) 08/09/24 Blood Urea Nitrogen 32 mg/dL (9-16) H 08/09/24 Sodium 145 mmol/L (135-145) 08/09/24 Potassium 4.5 mmol/L (3.3-5.1) 08/09/24 Chloride 115 mmol/L (96-108) H 08/09/24 Carbon Dioxide 21 mmol/L (22-29) L 08/09/24 Calcium 9.4 mg/dL (8.4-10.2) 08/09/24 AST 22 U/L (5-31) 08/08/24 ALT 13 U/L (0-31) 08/08/24 Total Protein 7.7 g/dL (6.5-8.0) 08/08/24 Albumin 3.6 g/dL (3.5-5.0) 08/08/24 LSW-Aakcbpk-Ak.Jeor Equation Height: 5 ft 3 in Weight: 181 lb Resting Metabolic Rate: 1275.55 Calculated Activity Level: Sedentary Calories Needed to Maintain Weight: 1530.66 Diagnosis Nutrition problem #1: altered nutrition labs As related to (etiology) #1: diagnosis As evidenced by (sign/symptom) #1: abnormal lab values [facility] Medical History CKD (chronic kidney disease) stage 3, GFR 30-59 ml/min Acute stroke due to ischemia Abdominal bloating Elevated TSH Preoperative clearance Bilateral leg pain Urticaria Obesity (BMI 30-39.9) Diabetic nephropathy associated with type 2 diabetes mellitus Nausea and vomiting Microalbuminuria due to type 2 diabetes mellitus Paroxysmal atrial fibrillation Slurred speech History of endometrial cancer Depression Iron deficiency anemia History of left breast cancer Hypothyroidism 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 Tobacco Use Status: Never used Tobacco e-Cigarette/Vaping Use: Never Used Second Hand Smoke Exposure: No Advance Directives Date on File: 08/16/23 service: No Current occupational status: disabled Cognitive needs: Yes Hearing needs: No Vision needs: Yes Assessment & Plan Assessment & Plan (1) Type 2 diabetes mellitus with hyperglycemia: Code(s): E11.65 - Type 2 diabetes mellitus with hyperglycemia Category: Medical Plan: Wt: 82 Kg ( 11/14 ) Est kcal needs as per MSJ: 1600 (40% carb, 30% protein/fat) Est fluid needs as per 25-30 ml/d: 2500 Est prot per day as per 1 g/kg bw: 80 Recommend fiber intake : 8-10 g per day and gradually increase to 25-28 g per day for women and 35-38 g for men or as tolerated Recommend sodium intake per day : less than 2000 mg Educated patient on: ( R = reviewed V = verbalizes understanding N/R = needs review N/A = not applicable * Food sources of carbohydrate, adequate serving sizes and its role in various health conditions: R V N/R * Differences between complex carbohydrates a simple carbohydrates, role of fiber in diet: R * Lean protein sources of foods: R * Differences between types of fats and role in diet (mono on saturated fat fatty acids, saturated fatty acids, trans fats): R V N/R * Food sources of sodium in salt and healthy modifications for heart health in kidney health: R V R/V * Vitamins and minerals: R V N/R * Healthy plate method concept: R V N/R * Physical activity: Benefits a precaution: R V N/R * Hypoglycemia protocol (rule of 15): R V N/R * Dietary prevention of Hyperglycemia: R Patient Instructions: Have a glucerna shake once a day instead of skipping a meal choose 1/2 cup applesauce or 1/2 cup of fruit as a midafternoon snack in place of cookies once a day Coding Level of Care Code Nutr Indiv Intake (01512) Diagnoses Type 2 diabetes mellitus with hyperglycemia E11.65 Time Spent (min) 30
[2024-10-22 11:39] VITALS: BMI 32.1
--- OUTSIDE RECORDS SUMMARY | 2024-10-22 12:18 | XMS_ITS | Encounter Summary ---
Author Organization [employer] Address [address] [place] [address] Care Team Providers Care Biological Science Aide Name Role Phone Lois Salazar MD Primary Care Provider [phone] Jono Pérez PharmD Unavailable [phone] Encounter Details Date Type Department Care Team (Late st Contact Info) Description 10/11/2023 Abstract [facility] [address] [place], [place] [phone] Lois Salazar MD [address] [place], [place] [phone] Social History Tobacco Use Types Packs/Day Years [...] Care Team (Late st Contact Info) Description 10/29/2024 11:00 AM EDT Office Visit [facility] [address] [place] [id number] Lois Salazar MD [address] [place] [address] 11/09/2024 1:30 PM EDT Office Visit [facility] ADULT DENTAL [address] [place] [address] [place] DDS [address] [place] [address] 04/01/2025 2:00 PM EST Medication Management [facility] [address] [place] [address] Jono Pérez, PharmD [address] [place] [address] documented as of this encounter Goals Goal Patient Goal Type Associated Problems Recent Progress Patient-Stated? Author Blood Pressure < 140/90 Blood Pressure 120/62( 025 2:10 PM EDT) No Jono Pérez, PharmD documented as of [...] documented as of this encounter Care Teams Biological Science Aide Relationship Specialty Start Date End Date Lois Salazar MD [address] [place] [address] PCP - General Family Medicine 05/27/23 Jono Pérez, CharlesD [address] [place] [address] Pharmacist Internal Medicine 07/04/23 documented as of this encounter
[2024-10-24 10:17] VITALS: BMI 32.1
== END 2024-10-22 14:19 | disposition home or self-care (01) ==
LOC: HO.ENCR 11:04
PROVIDERS: PCP Family Medicine; Visit Provider Dietitian, Registered
DX: E11.65 Type 2 diabetes mellitus with hyperglycemia (principal)

== ENCOUNTER → 2024-10-22 11:02 | Outpatient (BNVA) | payer OTHER, SELFPAY | PROVIDERS: PCP Family Medicine; Visit Provider Dietitian, Registered | DX: E11.65 Type 2 diabetes mellitus with hyperglycemia (principal) | CPT/HCPCS: 97802 ==

== ENCOUNTER 2024-11-26 11:46 | Outpatient (REF) | payer OTHER, SELFPAY ==
[2024-11-26 11:58] LABS: MANUAL DIFF FLAG NO
[2024-11-26 12:21] LABS: Hematocrit 34.7 % (37.0-47.0); Hemoglobin 11.4 g/dl (12.0-16.0); Imm Gran Abs Auto 0.02 X10*3/uL (0.00-0.03); Imm Gran Pct Auto 0.2 % (0.0-0.4); Lymphocytes Absolute Auto 2.2 X10*3/uL (1.2-4.9); Mean Corpuscular HGB Conc 32.9 g/dl (31.0-35.0); Mean Corpuscular Hemoglobin 27.0 pg (27.0-33.0); Mean Corpuscular Volume 82.2 fL (80.0-98.0); NRBC Abs Auto 0.000 X10*3/uL (0.0-0.012); NRBC Pct Auto 0.0 /100WBC (0.0-0.2); Platelet Count 279 X10*3/uL (160-400); Red Blood Count 4.22 X10*6/uL (4.20-5.50); Reticulocytes Absolute 0.103 X10*6/uL (0.026-0.095); White Blood Count 8.4 X10*3/uL (4.8-10.8)
--- OUTSIDE RECORDS SUMMARY | 2024-11-26 12:38 | XMS_ITS | Clinical Summary ---
Author Organization [facility] Address [address] [place] [address] Care Team Providers Care Shaker Operator Name Role Phone Yesi Linares MD Primary Care Provider [phone] Medications amLODIPine (NORVASC) 10 MG tablet Take [...] Health Maintenance Due Date Last Done Comments Diabetes: Ophthalmology Exam 06/22/2020 Diabetes: Pedal Pulse Checked 06/22/2020 Diabetes: Sensory Foot Exam 06/22/2020 Diabetes: Visual Foot Exam 06/22/2020 Diabetes: Hemoglobin A1C 11/14/2024 08/14/2024 Influenza Vaccine (#1) 2025 , 07/01/2023, 08/18/2022, Additional history exists Pneumococcal Vaccine: 50+ Years Completed 02/16/2016, 07/23/2013, 01/26/2006 Pneumococcal Vaccine: Peds (0 to 5 Years) and At-Risk Patients (6 to 49 Years) Discontinued 02/16/2016, 07/23/2013, 01/26/2006 Hepatitis B Vaccine Aged Out No longe r eligible based on patient's age to complete this topic Insurance [place] Dual MCR/KAYCEE ([id number]) [place] MCR/KAYCEE ([id number]) Care Teams Shaker Operator Relationship Specialty Start Date End Date Yesi Linares MD [address] [place], [place] PCP - General 06/02/20
--- OUTSIDE RECORDS SUMMARY | 2024-11-26 12:38 | XMS_ITS | Patient Health Record ---
Author Organization [facility] Address [address] [place] [address] Care Team Providers Care Ornamental Ironworker Helper Name Role Phone Sandra Eric MDh Primary Care Provider Jason Moeller Jr Unavailable Reason For Referral No Information Medications Medication SIG (Take, Route, Frequency, Duration) Notes Start Date End Date Status PARoxetine HCl 20 MG 1 tablet in the mor armando Orally Once a day Active amLODIPine Besylate 5 MG 1 tablet Orally Once a day Active Donepezil HCl 10 MG 1 tablet at bedtime Orally Once a day Active metFORMIN HCl 1000 MG 1 tablet with meal s Orally Twice a day Active Lantus 55iu Active Valsartan 320 MG 1 tablet Orally Once a day Active Atorvastatin Calcium 40 MG 1 tablet Oral ly Once a day Active Metoprolol Succinate ER 25 MG 1 tablet Orally Once a day Active Pantoprazole Sodium 40 MG 1 tablet Orall y Once a day Active Promethazine HCl 12.5 MG Orally Active traZODone HCl 50 MG Orally Active Namenda 10 MG 1 tablet Orally Twic e a day Active Perphenazine 2 MG 1 tablet Orally Once a day Active Aspir-81 Active Meloxicam Active Problems Problem Type SNOMED Code ICD Code Onset Dates Problem Status W/U Status Risk Notes Problem Unspecified iron deficiency anemia (280.9) Active confirmed Problem Epigastric pain (88268863) Abdominal pain, epigastric (789.06) Active confirmed Problem 3009501 Gastritis (535.50) Active confirmed Plan Of Treatment Future Test Test Name Order Date UPPER GI ENDOSCOPY 09/02/2011 COLONOSCOPY 09/02/2011 Insurance Providers Payer Name Payer Address Payer Phone Subscriber Number Group Number Insured Name Patient Relationship to Insured Coverage Start Date Coverage End Date [facility] [address] [address] [place] [address] [id number] MICHELLE FIERRO Self - patient is the insured Medical (General) History Medical History History ICD Code diabetes mellitus hypertension memory difficulty anemia environmental allergies hyperlipidemia
[2024-11-26 12:48] LABS: Parathyroid Hormone Intact 106.3 pg/mL (8.7-77.1)
[2024-11-26 13:16] LABS: Folate 11.1 ng/mL (> or = 4.0); Vitamin B12 667 pg/mL (200-900)
[2024-11-26 13:39] LABS: Ferritin 132 ng/mL (10-250)
[2024-11-26 14:00] LABS: Microalbum/Creatinine Ratio Ur 192.3 ug/mg cr (<30)
[2024-11-26 14:05] LABS: Anion Gap 15 (12-20)
[2024-11-26 14:10] LABS: Alanine Aminotransferase 15 U/L (0-31); Albumin Level 3.8 g/dL (3.5-5.0); Alkaline Phosphatase 108 U/L (39-117); Aspartate Amino Transferase 27 U/L (5-31); Blood Urea Nitrogen 34 mg/dL (9-16); Calcium 9.7 mg/dL (8.4-10.2); Carbon Dioxide 23 mmol/L (22-29); Chloride 110 mmol/L (96-108); Cholesterol 140 mg/dL (<200); Estimated Glomerular Filt Rate 34; HDL Cholesterol 28 mg/dL (>40); Iron 88 mcg/dL (30-160); Percent Iron Saturation 32 % (15-50); Potassium 4.6 mmol/L (3.3-5.1); Sodium 143 mmol/L (135-145); Total Iron Binding Capacity 271 mcg/dL (228-428); Total Protein 7.1 g/dL (6.5-8.0); Triglycerides 142 mg/dL (<150); Unsaturated Iron Binding 183 ug/dL
[2024-11-26 14:27] LABS: Reflex LDLD? No
== END 2024-11-26 11:47 | disposition home or self-care (01) ==
LOC: HO.LAB 11:46
PROVIDERS: PCP Family Medicine; Visit Provider Family Medicine
DX: E55.9 Vitamin D deficiency, unspecified (principal); I12.9 Hypertensive chronic kidney disease with stage 1 through stage 4 chronic kidney disease, or unspecified chronic kidney disease; E11.22 Type 2 diabetes mellitus with diabetic chronic kidney disease; N18.32 Chronic kidney disease, stage 3b; D63.1 Anemia in chronic kidney disease; E11.65 Type 2 diabetes mellitus with hyperglycemia; E78.2 Mixed hyperlipidemia; Z79.4 Long term (current) use of insulin
CPT/HCPCS: 36415; 80053; 80061; 82043; 82306; 82570; 82607; 82728; 82746; 83540; 83970; 85025; 85045

== ENCOUNTER 2025-02-11 09:56 | Outpatient (AMB) | payer OTHER, SELFPAY ==
--- NOTE | 2025-02-11 10:04 | A.OFFVIS_ITS ---
Vital Signs 02/11/25 10:06 Height 5 ft 3 in Weight 183 lb 6.793 oz BMI 32.5 BP 124/58 L Blood Pressure Location Lt brachial Position Sitting Pulse 62 Pulse Source Pulse Oximeter Pulse Oximetry (%) 96 Oxygen Delivery Method Room Air Intake Visit Reasons: T2DM Intake Note: Patient present today to follow up on Type 2 Diabetes Mellitus. Last Diabetic Eye exam: Due, unsure exactly when, less than [address] [facility] Last Podiatry Visit: Does not see a Fuse Spooler Random Glucose: 134 mg/dl Hgb A1C: 8.4% Bilingual Teacher Required: Yes Bilingual Teacher Language: Enterprise Application Architect Services: Bilingual Teacher Present Bilingual Teacher Name: Janice ALBERT Information Interpreted: non-clinical & clinical Accompanied by: WATER RESOURCE ENGINEERING SPECIALIST Allergies JERMAINE Inhibitors (JERMAINE INHIBITORS) Adverse Reaction (Intermediate, Verified 02/11/25 10:08) COUGH lactose (LACTOSE) Adverse Reaction (Intermediate, Verified 02/11/25 10:08) GI DISCOMFORT Medication List - Last Reconciled 02/11/25 by David Yen MD amlodipine 10 mg PO DAILY apixaban (Eliquis) 5 mg PO BID atorvastatin 80 mg PO BEDTIME blood sugar diagnostic (FreeStyle Precision En Strips) TEST BLOOD SUGAR FOUR TIMES DAILY blood-glucose meter (FreeStyle Precision En Meter) Tests 4 X/day cane As directed cefuroxime axetil 250 mg PO Q12H cholecalciferol (vitamin D3) (Vitamin D3) 25 mcg PO DAILY compr.stocking,knee,long,large As directed [diabetic shoes with 3 inserts As directed] empagliflozin (Jardiance) 10 mg PO DAILY 30 days famotidine 20 mg PO BEDTIME ferrous sulfate 325 mg PO DAILY 90 days flash glucose scanning reader (FreeStyle Carola 2 [place]) As directed flash glucose sensor (FreeStyle Carola 2 Sensor kit) USE DIRECTED TO TEST BLOOD SUGAR CHANGE EVERY 14 DAYS FreeStyle Carola 3 Plus Sensor (blood-glucose sensor) every 10 days NS FreeStyle Carola 3 Plus Sensor (blood-glucose sensor) As directed NS FreeStyle Carola 3 Plus Sensor (blood-glucose sensor) As directed every 15 days NS FreeStyle Carola 3 [place] (blood-glucose,wholesale parts salesperson,cont) As directed for use with sensors NS FreeStyle Carola 3 [place] (blood-glucose,wholesale parts salesperson,cont) for continous use with fs carola 3+ sensors NS insulin lispro (Humalog KwikPen (U-100) Insulin) 30 units (0.3 mL) subcut TIDAC lancets (TRUEplus Lancets) TEST BLOOD SUGAR FOUR TIMES DAILY lancets (TRUEplus Lancets) TEST BLOOD SUGAR FOUR TIMES DAILY linaclotide (Linzess) 72 mcg PO DAILY magnesium oxide 250 mg PO BID memantine 5 mg PO BID metoclopramide HCl 5 mg PO TID metoprolol succinate ER 100 mg PO QAM pen needle, diabetic As directed pen needle, diabetic (UltiCare Pen Needle) USE THREE TIMES DAILY tamoxifen 20 mg PO BEDTIME 30 days Tresiba FlexTouch U-200 (insulin degludec) 65 units (0.325 mL) subcut DAILY 30 days NS valsartan 320 mg PO DAILY HPI Comments Details: Patient is a 79-year-old female with DM type 2 diagnosed 1995 who presents for management of diabetes. She was last seen 08/29/2024 by RIZWAN Trinidad. Jardiance was added to her medication last fall. A1C 05/31/23 8.8% 8.9% on 12/15. 4 months ago she was changed to Tresiba. Diabetes medications: Tresiba 65 units Humalog 35 units tid before meals Jardiance 10 mg Unfortunately, patient did not bring her log book, glucometer or sensor to follow up appointment Her daughter is 1 of her caregivers in his with her today in clinic. She reports she has tried having her mother where the freestyle Carola 2 several times but she just pulls it off. She reports she have glucose meter today but that she just check her sugar before every dose of insulin. She reports her glucose readings have been on average 164-170 with the lowest having been 118. She has rare symptomatic low sugars. Cast Shell Grinder - CDE education: recently Fuse Spooler: none recently Dental exam: goes every 6 month Ophthalmology evaluation: couple of mos ago Has nephropathy followed by Dr. Barclya last seen 06/202408/09/2024 EGFR 38 She is followed by Cardiology for PAF and is on Eliquis with recommendations to reduce dosing if her creatinine is 1.5, this has come back down since her hospital stay Has neuropathy Diet can be high in conc sweets [facility] Medical History CKD (chronic kidney disease) stage 3, GFR 30-59 ml/min Acute stroke due to ischemia Abdominal bloating Elevated TSH Preoperative clearance Bilateral leg pain Urticaria Obesity (BMI 30-39.9) Diabetic nephropathy associated with type 2 diabetes mellitus Nausea and vomiting Microalbuminuria due to type 2 diabetes mellitus Paroxysmal atrial fibrillation Slurred speech History of endometrial cancer Depression Iron deficiency anemia History of left breast cancer 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 Absence of acromegalic features. Non verbal. Uses walker for ambulation. Neck exam reveals nl size thyroid about 15 gms. No thyroid nodules palpable. No carotid bruits present. Lungs CTA. Heart S1 S2, Reg R/R. No M/R G. No suprapubic tenderness, Skin exam reveals absence of vitiligo or acanthosis nigricans. No edema Visual exam of foot performed. No ulcerations or open lesions. No inter digit maceration or fissuring. No onychomycosis, no callouses. Unable to assess sensation due to dementia. Results AMB Hemoglobin A1c AMB Hemoglobin A1c 8.4 % Last Edit by ANATOLY Yi on 02/11/25 10:26 Results Reviewed Results Reviewed: Laboratory Last Values Glucose (Clinic) 134 mg/dL (60-115) H 02/11/25 10:14 Hgb A1c (Clinic) 8.4 % (4.0-6.0) H 02/11/25 10:18 Assessment & Plan Assessment & Plan (1) Diabetes type 2, uncontrolled: Code(s): E11.65 - Type 2 diabetes mellitus with hyperglycemia Category: Medical Qualifiers: Glycemic state: with hyperglycemia Qualified Code(s): E11.65 - Type 2 diabetes mellitus with hyperglycemia Plan: This 77-year-old female with a history of type 2 diabetes being treated Jardiance and basal-bolus insulin with fair but adequate for patient's age and comorbidity glycemic control and known microvascular complications namely neuropathy and CKD stage III. The plan is to reinitiate the sensor Carola 3 plus . Not enough information provided today to be able to make changes to the insulin regimen. Patient will follow up with primary care diabetes team in 6 weeks Orders: Orders AMB Hemoglobin A1c Today E11.65 - Type 2 diabetes mellitus with hyperglycemia Coding Level of Care Code Est Pt Level 4 (74792) Diagnoses Uncontrolled type 2 diabetes mellitus with hyperglycemia E11.65 Glycemic state: with hyperglycemia
[2025-02-11 10:06] VITALS: BP 124/58; PULSE 62; O2SAT 96; BMI 32.5
[2025-02-11 10:22] LABS: Glucose, Whole Blood 134 mg/dL (60-115)
--- OUTSIDE RECORDS SUMMARY | 2025-02-11 12:12 | XMS_ITS | Patient Health Record ---
Author Organization [facility] Address [address] [place] [address] Care Team Providers Care New Grad Rn Name Role Phone Hernesto MCFARLAND, Lacho Primary Care Provider Jason Moeller Jr Unavailable [...] Problem Status W/U Status Risk Notes Problem Iron deficiency anemia (24468090) Unspecified iron deficiency anemia (280.9) Active confirmed Problem Epigastric pain (47946616) Abdominal pain, epigastric (789.06) Active confirmed Problem 3230848 Gastritis (535.50) Active confirmed Plan Of Treatment Future Test Test Name Order Date UPPER GI ENDOSCOPY 09/02/2011 COLONOSCOPY 09/02/2011 Insurance Providers Payer Name Payer Address Payer Phone Subscriber Number Group Number Insured Name Patient Relationship to Insured Coverage Start Date Coverage End Date [facility] [address] [address] [place] [address] [phone] [id number] MICHELLE FIERRO Self - patient is the insured Medical (General) History Medical History History ICD Code diabetes mellitus hypertension memory difficulty anemia environmental allergies hyperlipidemia
--- OUTSIDE RECORDS SUMMARY | 2025-02-11 12:12 | XMS_ITS | Clinical Summary ---
Author Organization [facility] Address [address] [place] [address] Care Team Providers Care Membership Advisor Name Role Phone Yesi Linares MD Primary Care Provider [phone] Medications amLODIPine (NORVASC) 10 MG tablet Take [...] patient's age to complete this topic Insurance [place] Dual MCR/KAYCEE ([id number]) [place] MCR/KAYCEE ([id number]) Care Teams Membership Advisor Relationship Specialty Start Date End Date Yesi Linares MD [address] [place], [place] PCP - General 06/02/20
== END 2025-02-11 10:32 | disposition home or self-care (01) ==
LOC: HO.ENCR 09:57
PROVIDERS: PCP Family Medicine; Visit Provider Internal Medicine Endocrinology, Diabetes & Metabolism
DX: E11.65 Type 2 diabetes mellitus with hyperglycemia (principal)
CPT/HCPCS: 99214

== ENCOUNTER → 2025-02-11 09:56 | Outpatient (BNVA) | payer OTHER, SELFPAY | PROVIDERS: PCP Family Medicine; Visit Provider Internal Medicine Endocrinology, Diabetes & Metabolism | DX: E11.65 Type 2 diabetes mellitus with hyperglycemia (principal) | CPT/HCPCS: 82947; 83036; 99212 ==